=== PATIENT | male | born 1965 | race Caucasian/White ===

== ENCOUNTER 2017-07-29 17:50 | Inpatient (IN) | payer BC, MEDICARE, OTHER ==
[2017-07-29] MEDS ORDERED: ALBUTEROL SO4 2.5/IPRATROPIUM 0.5 INH SOL 3 ML VIAL.NEB. NEB ONE ×2 (17:57→22:14)
--- NOTE | 2017-07-29 17:57 | PDOC ---
Rapid Medical Evaluation Time Seen by Provider: 07/29/17 17:51 Medical Evaluation: Allergies Allergy/AdvReac Type Severity Reaction Status Date / Time No Known Allergies Allergy Verified 11/15/14 12:45 07/29/17 17:52 I have performed a brief in-person evaluation of this patient. The patient presents with a chief complaint of: sob, pain in rt ear, dizziness, decreased appetite, + smoker Pertinent physical exam findings: 82 % room air , + tachy , faint puma exp wheeze I have ordered the following: labs, ekg, cxr, douneb The patient will proceed to the ED for further evaluation.
[2017-07-29 18:35] LABS: BASOPHIL 0.7 % (0-2.0); EOSINOPHIL 0.7 % (0-4.5); MCH 25.8 pg (25.7-33.7); MCHC 31.5 g/dl (32.0-35.9); MEAN CELL VOLUME 81.8 fl (80-96); MEAN PLT VOLUME 7.9 fl (7.5-11.1); NEUTROPHILS 78.7 % (42.8-82.8); PLATELET COUNT 232 K/MM3 (134-434); RDW 17.4 % (11.9-15.9); WHITE BLOOD COUNT 13.6 K/mm3 (4.0-10.0)
[2017-07-29] MEDS ORDERED: ALBUTEROL SO4 0.083% IH SOL 2.5 MG/3 ML VIAL.NEB. NEB ONE ×2 (19:41→20:08)
--- NOTE | 2017-07-29 20:09 | PDOC ---
History of Present Illness - General Chief Complaint: Shortness of Breath Stated Complaint: S.O.B Time Seen by Provider: 07/29/17 17:51 History Source: Patient - History of Present Illness Initial Comments: 07/29/17 19:51 Patient is a 52 yo M, non-compliant, presented to the ED with 3 days of SOB, right ear pain, runny nose, and chills. He says he's been having eye discharge that also started 3 days ago. He complains of a dry cough and fatigue that has been going on for a while. He also complains of an allergic reaction that occurred 3 days ago after eating pistachios. He says his eyes, tongue, hands and feet became "very puffy". Patient does not follow with a PCP and has never been diagnosed with any medical conditions. Patient says the SOB has been going on for years but feels like it has been getting worse over the last few days. He says he can't walk 10 steps without losing his breath and has difficulty sleeping at night because of his breathing. He also noticed increased swelling of his legs over the years. He also complains of urinary incontinence that has been going on for a long time. He says he has towels all over his house floor because he can never make it to the bathroom. He denies chest pain/pressure, abdominal pain, dizziness, and diarrhea, urinary frequency, and dysuria. Past History - Past Medical History Allergies/Adverse Reactions: Allergies Allergy/AdvReac Type Severity Reaction Status Date / Time No Known Allergies Allergy Verified 07/29/17 17:56 Home Medications: Ambulatory Orders NK [No Known Home Medication] 07/29/17 Anemia: No Asthma: Yes ( CHILD-NO MEDS STABLE) Cancer: No Cardiac Disorders: No CVA: No COPD: No CHF: No Dementia: No Diabetes: No GI Disorders: No Disorders: No HTN: No Hypercholesterolemia: No Liver Disease: No Seizures: No Thyroid Disease: No - Surgical History Abdominal Surgery: No Appendectomy: No Cardiac Surgery: No Cholecystectomy: No Lung Surgery: No Neurologic Surgery: No Orthopedic Surgery: No - Suicide/Smoking/Psychosocial Hx Smoking History: Never smoked Number of Cigarettes Smoked Daily: 20 Information on smoking cessation initiated: No 'Breaking Loose' booklet given: 09/06/13 Hx Alcohol Use: Yes (SOCIAL) Drug/Substance Use Hx: No Substance Use Type: None Hx Substance Use Treatment: No Review of Systems - Review of Systems Able to Perform ROS?: Yes Constitutional: Yes: Chills, Weakness. No: Diaphoresis, Fever HEENTM: Yes: Ear Pain (right ear pain), Throat Pain, Other (right ear pain). No : Ear Discharge Respiratory: Yes: Cough, Shortness of Breath, SOB with Exertion, Wheezing Cardiac (ROS): Yes: Edema ABD/GI: No: Constipated, Diarrhea, Nausea : Yes: Incontinence, Urgency Neurological: No: Tingling, Tremors Psychiatric: Yes: Stressors *Physical Exam - Vital Signs Last Vital Signs Temp Pulse Resp BP Pulse Ox 99.5 F 100 H 22 145/95 95 07/29/17 17:51 07/29/17 18:34 07/29/17 17:51 07/29/17 17:51 07/29/17 18:34 - Physical Exam Comments: 07/29/17 21:49 General: Obese, A/o x 3, tachypneic, hypoxic in 80's. 90's w oxygen HEENT: periorbital edema, slight purulent discharge b/l, Right TM effusion, oropharynx clear without exudates Heart: regular rate, rhythm, distance heart sounds Lungs: expiratory wheezing Abd: +BS, NT, ND Ext: B/L UE edema, B/L LE edema 1+ pitting ED Treatment Course - LABORATORY CBC & Chemistry Diagram: 07/29/17 18:22 07/29/17 20:18 - ADDITIONAL ORDERS Additional order review: Laboratory Results 07/29/17 07/29/17 18:22 18:22 Sodium Cancelled Potassium Cancelled Chloride Cancelled Carbon Dioxide Cancelled Anion Gap Cancelled BUN Cancelled Creatinine Cancelled Creat Clearance w eGFR Cancelled Random Glucose Cancelled Lactic Acid 1.5 Calcium Cancelled Total Bilirubin Cancelled AST Cancelled ALT Cancelled Alkaline Phosphatase Cancelled Total Protein Cancelled Albumin Cancelled 07/29/17 18:22 RBC 5.60 MCV 81.8 MCHC 31.5 L RDW 17.4 H MPV 7.9 Neutrophils % 78.7 Lymphocytes % 10.5 Monocytes % 9.4 Eosinophils % 0.7 Basophils % 0.7 - Medications Given in the ED: ED Medications Discontinued Medications Generic Name Dose Route Start Last Admin Trade Name Freq PRN Reason Stop Dose Admin Albuterol/Ipratropium 1 amp 07/29/17 17:57 07/29/17 17:57 Duoneb - NEB 07/29/17 17:58 1 amp ONCE ONE Administration Medical Decision Making - Medical Decision Making 07/29/17 20:58 #Severe dyspnea on exertion #Volume overload #Hypercarbic respiratory failure #Allergic reaction -respiratory vs. cardiac Blood cultures Chest X ray UA CBC, CMP Duonebs Benadryl 07/29/17 21:00 Duonebs IV Solumedrol 125 IV Lasix 20mg Renal consulted 52-year-old male with likely undiagnosed chronic illnesses. Discussed case with hospitalist resident. Will admit to [facility] for further cardiac/pulmonary evaluations. *DC/Admit/Observation/Transfer Diagnosis at time of Disposition: Acute respiratory failure with hypoxia and hypercarbia - Discharge Dispostion Admit: Yes
[2017-07-29 20:37] LABS: VENOUS BLOOD GAS HCO3 38.4 meq/L (19-25); VENOUS PH 7.34 (7.32-7.42)
[2017-07-29 20:41] LABS: INR 1.29 (0.82-1.09); PROTHROMBIN TIME (PATIENT) 14.6 SEC (9.98-11.88)
[2017-07-29 20:44] LABS: ACTIVATED PTT 28.6 SECONDS (26.9-34.4)
[2017-07-29 20:54] LABS: ALK PHOS 91 U/L (45-117); ANION GAP 5 (8-16); BILIRUBIN,TOTAL 0.7 mg/dL (0.2-1.0); CALCIUM 8.2 mg/dL (8.5-10.1); CO2 37 mmol/L (21-32); CPK 93 IU/L (39-308); CREATININE 0.9 mg/dL (0.7-1.3); GLUCOSE,RANDOM 91 mg/dL (74-106); SGPT/ALT 34 U/L (12-78); TOT PROT 6.4 g/dl (6.4-8.2)
[2017-07-29 20:56] LABS: TROPONIN I 0.03 ng/ml (0.00-0.05)
[2017-07-29 20:57] LABS: SGOT/AST 18 U/L (15-37)
[2017-07-29] MEDS ORDERED: methylPREDNISolone NA SUCC 125 MG/2 ML VIAL IVPUSH ONE (21:21)
[2017-07-29 21:24] LABS: CHOLESTEROL 145 mg/dL (50-200)
[2017-07-29] MEDS ORDERED: FUROSEMIDE 20 MG TABLET (FP) PO ONE (21:33)
[2017-07-29] MEDS ORDERED: FUROSEMIDE 40 MG/4 ML INJECTABLE VIAL IVPUSH ONE (21:36)
[2017-07-29] MEDS ORDERED: FUROSEMIDE 40 MG/4 ML INJECTABLE VIAL IVPUSH SCH (21:45)
[2017-07-29] MEDS ORDERED: FUROSEMIDE 40 MG/4 ML INJECTABLE VIAL ONE (22:14)
[2017-07-29] MEDS ORDERED: methylPREDNISolone NA SUCC 125 MG/2 ML VIAL ONE (22:14)
--- NOTE | 2017-07-29 22:19 | PDOC ---
Attending Attestation - Resident Resident Name: Kellee Grimaldo - ED Attending Attestation I have performed the following: I have examined & evaluated the patient, The case was reviewed & discussed with the resident, I agree w/resident's findings & plan, Exceptions are as noted - HPI HPI: 07/29/17 22:06 52-year-old male lost to medical follow-up, morbidly obese and daily smoker varying from 2 packs per day to half a pack per day presents with acute on chronic complaints: Limited exercise tolerance at baseline due to his obesity and left knee pain, but over the last week presents with constellation of symptoms including increased dyspnea, hand and foot swelling, nonspecific and atraumatic right ear pain, and bilateral eye redness and swelling since moving into a new apartment. Denies any chest pain or pressure, denies any fevers or chills, nonproductive cough, no GI complaints. Never had a stress test, his last medical evaluation was about 9 years ago. - Physicial Exam PE: 07/29/17 22:07 Tachypneic, afebrile, hypoxic on room air in the 80s, improves to 90s on oxygen Morbidly obese, slightly unkempt Bilateral reactive conjunctivitis with slight discharge Right TM effusion, no infection Bibasilar inspiratory crackles with expiratory wheezing, rate otherwise regular and normal Abdomen benign Bilateral lower leg edema - Critical Care Time Total Critical Care Time: 45 Critical Care Statement: The care of this patient involved high complexity decision making to prevent further life threatening deterioration of the patient 's condition and/or to evaluate & treat vital organ system(s) failure or risk of failure. - Medical Decision Making 07/29/17 22:10 Patient seen and evaluated with the resident. I agree with the overall evaluation, assessment, and management with the following summary of visit: 52-year-old male with likely undiagnosed chronic illnesses, presents acute hypoxic respiratory failure and hypercarbia, worsening respiratory distress over the last week. Question cardiac versus pulmonary in etiology. His eye redness and ear pain are likely more reactive, question atopic secondary to new allergens in his new apartment. There does not appear to be any acute maxillofacial or ENT infectious process. Labs notable for chronic respiratory acidosis with metabolic compensation Troponin negative Chest x-ray shows enlarged heart with congestive changes and pulmonary edema Findings consistent with chronic COPD plus or minus CHF. Treated with nebs/ steroids, initiated IV Lasix, admitted for further cardiac pulmonary evaluation. Discharge Disposition - Diagnosis Acute respiratory failure with hypoxia and hypercapnia Heart Score/ECG Review #1 ECG reviewed & interpreted by me at: 18:09 General ECG Interpretation: Sinus Rhythm, Normal Rate (106), Normal Intervals ( qtc 435), No acute ischemic changes
[2017-07-29] MEDS: ALBUTEROL SO4 2.5/IPRATROPIUM 0.5 INH SOL 3 ML VIAL.NEB. NEB SCH ×4 (22:21→23:50)
--- NOTE | 2017-07-29 22:41 | HP ---
CHIEF COMPLAINT: "im having trouble breathing" PCP: none HISTORY OF PRESENT ILLNESS: This is a 52 yo M with PMH of urinary incontinence, chronic knee pain and mild asthma, (has not seen a doctor in years), who presents due to worsening SOB, right ear pain, b/l eye discharge, runny nose x 5 d. On presentation to ED patient is in hypoxic hypercarbic respiratory failure o2 sat 82% RA and has diffuse facial edema/erythema. Patient states that 5 days ago he changed his diet and noticed facial swelling and redness, itchy tongue and the rest of the presenting symptoms, that have not improved since. He also noticed decreased exercise tolerance and malaise. This has never happened before. He denies cough, f/c, nausea, loss of appetite, increased weight or increased LE edema. ER course was notable for: (1)labs (2)cxr,ekg (3)lasix 40, medrol 125, duonebs, benadryl 50 iv Recent Travel: denies PAST MEDICAL HISTORY: as above PAST SURGICAL HISTORY: none Social History: lives alone Smoking: daily half a pack since 19 yo Alcohol:denies Drugs: denies Family History: htn, asthma Allergies No Known Allergies Allergy (Verified 07/29/17 17:56) HOME MEDICATIONS: Home Medications Medication Instructions Recorded NK [No Known Home Medication] 07/29/17 REVIEW OF SYSTEMS CONSTITUTIONAL: Absent: fever, chills, loss of appetite, weight change HEENT: Absent: throat pain, throat swelling, difficulty swallowing, mouth swelling CARDIOVASCULAR: Absent: chest pain, syncope, palpitations, irregular heart rate, lightheadedness , peripheral edema RESPIRATORY: Absent: cough, stridor, hemoptysis GASTROINTESTINAL: Absent: abdominal pain, abdominal distension, nausea, vomiting, diarrhea, constipation, melena, hematochezia GENITOURINARY: Absent: dysuria, flank pain, genital pain MUSCULOSKELETAL: Absent: back pain, neck pain SKIN: Absent: rash, itching, pallor HEMATOLOGIC/IMMUNOLOGIC: Absent: frequent infections ENDOCRINE: Absent: heat intolerance, cold intolerance NEUROLOGIC: Absent: headache, focal weakness or paresthesias PSYCHIATRIC: Absent: anxiety, depression PHYSICAL EXAMINATION Vital Signs - 24 hr 07/29/17 07/29/17 17:51 18:34 Temperature 99.5 F Pulse Rate 107 H 100 H Respiratory 22 Rate Blood Pressure 145/95 O2 Sat by Pulse 82 L 95 Oximetry (%) GENERAL: severely morbidly obsese, diaphoretic, Awake, alert, and fully oriented , in no moderate distress. HEAD: Normal with no signs of trauma. EYES: Pupils equal, round and reactive to light, extraocular movements intact, sclera anicteric, conjunctiva pink, b/l purulent discharge, periorbital edema. EARS, NOSE, THROAT: Moist mucous membranes. clear tympanic membranes b/l NECK: supple LUNGS: diffusely restricted breath sounds, diffuse wheezes HEART: Regular rate and rhythm, normal S1 and S2 ABDOMEN: obese, Soft, nontender, not distended, normoactive bowel sounds. limited exam MUSCULOSKELETAL: No CVA tenderness. UPPER EXTREMITIES: 2+ pulses, warm, well-perfused. No cyanosis. + clubbing. No peripheral edema. LOWER EXTREMITIES: 1+ pulses, warm, well-perfused. No calf tenderness. 1+ edema. NEUROLOGICAL: Cranial nerves II-XII grossly intact. dyspneic speech. PSYCHIATRIC: Cooperative. Good eye contact. Appropriate mood and affect. SKIN: Warm, dry Laboratory Results - last 24 hr 07/29/17 07/29/17 07/29/17 18:22 18:22 18:22 WBC 13.6 H RBC 5.60 Hgb 14.4 Hct 45.7 MCV 81.8 MCH 25.8 MCHC 31.5 L RDW 17.4 H Plt Count 232 MPV 7.9 Neutrophils % 78.7 Lymphocytes % 10.5 Monocytes % 9.4 Eosinophils % 0.7 Basophils % 0.7 PT with INR INR PTT (Actin FS) VBG pH POC VBG pCO2 POC VBG pO2 Mixed VBG HCO3 Sodium Cancelled Potassium Cancelled Chloride Cancelled Carbon Dioxide Cancelled Anion Gap Cancelled BUN Cancelled Creatinine Cancelled Creat Clearance w eGFR Cancelled Random Glucose Cancelled Lactic Acid 1.5 Calcium Cancelled Total Bilirubin Cancelled AST Cancelled ALT Cancelled Alkaline Phosphatase Cancelled Creatine Kinase Troponin I Total Protein Cancelled Albumin Cancelled Triglycerides Cholesterol Total LDL Cholesterol HDL Cholesterol Blood Type Antibody Screen 07/29/17 07/29/17 07/29/17 20:18 20:18 20:18 WBC RBC Hgb Hct MCV MCH MCHC RDW Plt Count MPV Neutrophils % Lymphocytes % Monocytes % Eosinophils % Basophils % PT with INR 14.60 H INR 1.29 H PTT (Actin FS) 28.6 VBG pH 7.34 POC VBG pCO2 73.7 H* POC VBG pO2 47.4 Mixed VBG HCO3 38.4 H Sodium 141 Potassium 4.8 Chloride 99 Carbon Dioxide 37 H Anion Gap 5 L BUN 15 Creatinine 0.9 Creat Clearance w eGFR > 60 Random Glucose 91 Lactic Acid Calcium 8.2 L Total Bilirubin 0.7 AST 18 ALT 34 Alkaline Phosphatase 91 Creatine Kinase 93 Troponin I 0.03 Total Protein 6.4 Albumin 3.0 L Triglycerides Cholesterol Total LDL Cholesterol HDL Cholesterol Blood Type Antibody Screen 07/29/17 07/29/17 07/29/17 20:18 20:18 21:00 WBC RBC Hgb Hct MCV MCH MCHC RDW Plt Count MPV Neutrophils % Lymphocytes % Monocytes % Eosinophils % Basophils % PT with INR INR PTT (Actin FS) VBG pH POC VBG pCO2 POC VBG pO2 Mixed VBG HCO3 Sodium Potassium Chloride Carbon Dioxide Anion Gap BUN Creatinine Creat Clearance w eGFR Random Glucose Lactic Acid 1.5 Calcium Total Bilirubin AST ALT Alkaline Phosphatase Creatine Kinase Troponin I Total Protein Albumin Triglycerides 133 Cholesterol 145 Total LDL Cholesterol 96 HDL Cholesterol 32 L Blood Type B NEGATIVE Antibody Screen Negative ASSESSMENT/PLAN: This is a 52 yo M with PMH of urinary incontinence, chronic knee pain and mild asthma, (has not seen a doctor in years), who presents due to worsening SOB, right ear pain, b/l eye discharge, runny nose x 5 d. Acute hypoxic hypercarbic respiratory failure -likely due to COPD exacerbation precipitated by allergic reaction vs URI vs asthma exacerbation -likely has OHS and RANJIT; recommend outpatient eval. -CPAP at night -supplemental O2 NC day -duonebs, symbicort -rocephin, azithro -medrol 40 bid -daily cxr -pulm consult -peak flow -incentive spirometer -blood/sputum cultures Sepsis -meets criteria; leukocytosis 13.6 w mild left shift -infectious vs reactive -treatment as above r/o HFPEF -cxr prominent pulmonary vasculature/congestion but difficult to read lung khan due to girth -ekg r axis div -in smoker consistent with pulm htn and possible R heart failure -received lasix 40 iv in ed -i/o, daily weight -tte -tft's, a1c. lipid panel wnl Allergic reaction -periorbital edema, uveitis, moderate tongue swelling -benadryl IV, steroids -antibiotic eye drops -swallow eval Urinary incontinence -outpatient urology consult Dispo: Adm med hood Problem List - Problem (1) Acute respiratory failure with hypoxia and hypercarbia Code(s): J96.01 - ACUTE RESPIRATORY FAILURE WITH HYPOXIA J96.02 - ACUTE RESPIRATORY FAILURE WITH HYPERCAPNIA (2) Allergic dermatitis, upper and lower eyelids, bilateral Code(s): H01.111 - ALLERGIC DERMATITIS OF RIGHT UPPER EYELID H01.112 - ALLERGIC DERMATITIS OF RIGHT LOWER EYELID H01.114 - ALLERGIC DERMATITIS OF LEFT UPPER EYELID H01.115 - ALLERGIC DERMATITIS OF LEFT LOWER EYELID (3) COPD exacerbation Code(s): J44.1 - CHRONIC OBSTRUCTIVE PULMONARY DISEASE W (ACUTE) EXACERBATION (4) Sleep apnea Code(s): G47.30 - SLEEP APNEA, UNSPECIFIED (5) Morbid obesity Code(s): E66.01 - MORBID (SEVERE) OBESITY DUE TO EXCESS CALORIES (6) Asthma Code(s): J45.909 - UNSPECIFIED ASTHMA, UNCOMPLICATED (7) Urinary incontinence Code(s): R32 - UNSPECIFIED URINARY INCONTINENCE Visit type - Emergency Visit Emergency Visit: Yes ED Registration Date: 07/29/17 Care time: The patient presented to the Emergency Department on the above date and was hospitalized for further evaluation of their emergent condition. - New Patient This patient is new to me today: Yes Date on this admission: 07/30/17 - Critical Care Critical Care patient: No
[2017-07-29 23:35] LABS: ARTERIAL BLD GAS O2 SATURATION 94.1 % (90-98.9); ARTERIAL BLOOD GAS HCO3 36.8 meq/L (22-26); ARTERIAL BLOOD GAS PO2 68.2 mmHg (80-100); ARTERIAL BLOOD GAS pH 7.41 (7.35-7.45)
[2017-07-29 23:46] LABS: URINE APPEARANCE CLEAR; URINE BILIRUBIN NEGATIVE (NEGATIVE); URINE COLOR LT. YELLOW; URINE GLUCOSE (UA) NEGATIVE (NEGATIVE); URINE KETONE NEGATIVE (NEGATIVE); URINE NITRITE NEGATIVE (NEGATIVE); URINE PROTEIN NEGATIVE (NEGATIVE); URINE UROBILINOGEN 0.2 mg/dL (0.2-1.0)
[2017-07-29 23:49] LABS: URINE BLOOD 1+ (NEGATIVE)
[2017-07-29 23:57] LABS: ART PUNCT SITE RIGHT RADIAL
[2017-07-29 23:58] LABS: PT. ON O2? NO
--- NOTE | 2017-07-30 00:07 | HP ---
CHIEF COMPLAINT: SOB, bilateral eye discharge and redness X 4 days PCP: None HISTORY OF PRESENT ILLNESS: 52 year old M morbidly obese smoker with childhood hx of asthma and allergies, presenting with 4 day history of worsening SOB, facial itch and rash, and puffy eyes. The patient noticed worsening of SOB 4 days ago, which is worse with exertion, but does not change with position. He normally lies down on his belly and has no worsening shortness of breath in that position. He has associated redness of both eyes with whitish creamy discharge and puffiness. There is also nasal congestion. He also has increased drooling from the mouth. Although the patient is morbidly obese, he says he is usually limited in movement by pain in his knee and not breathlessness. About 4 days ago he tried pistachios and thinks he might be reacting to them, because he remembers following ingestion of the pistachios, he had heartburn, difficulty breathing and then swelling of his body. Patient moved to a new living space a week ago that has hard wood floors. He is severely allergic to cats (has shortness of breath) and to dog hairs. He knows nothing about the previous occupants of where he moved to. Recently he has been working on his diet and trying different foods, but cannot identify any foods he may be allergic to other than the pistachios. Patient noticed pain in the R ear at about the time of onset of the symptoms that has resolved, no ear discharge. There is no cough, or chest pain, no fevers. No hx of bug bites. Patient has been having urge incontinence for a while now, but no feeling of incomplete emptying or terminal dribbling. He has not seen a health care provider in about 9 years, but at that time he was told he had a normal sized prostate. Patient is a current smoker, has smoked about a pack/day since he was about 19 years old. Patient was sating initially at 82% in room air. ER course was notable for: (1) CXR, EKG (2)VBG, ABG (3)Leucocytosis-13.6, Tachycardia -100 4)Oxygen -face mask 2L 5) Duonebs, benadryl, solumeds 6) UA, - negative 7)Lactic acid x2-1.5 8) Lipid panel-slightly elevated 9)CMP, PT/INR 10) Blood cultures 11) Lasix -given Recent Travel: PAST MEDICAL HISTORY: Childhood asthma PAST SURGICAL HISTORY: Social History: Smoking: Current 1/2 pack/dayX 30years Alcohol: Drugs: Family History: Allergies No Known Allergies Allergy (Verified 07/29/17 17:56) HOME MEDICATIONS: Home Medications Medication Instructions Recorded NK [No Known Home Medication] 07/29/17 REVIEW OF SYSTEMS CONSTITUTIONAL: Absent: fever, chills, diaphoresis, generalized weakness, malaise, loss of appetite, weight change HEENT: Absent: rhinorrhea, nasal congestion+, throat pain, throat swelling, difficulty swallowing, mouth swelling, ear pain+, eye pain, visual changes CARDIOVASCULAR: Absent: chest pain, syncope, palpitations, irregular heart rate, lightheadedness , peripheral edema RESPIRATORY: Absent: cough, shortness of breath+, dyspnea with exertion+, orthopnea, wheezing , stridor, hemoptysis GASTROINTESTINAL: Absent: abdominal pain, abdominal distension, nausea, vomiting, diarrhea, constipation, melena, hematochezia GENITOURINARY: Absent: dysuria, frequency, urgency, hesitancy, hematuria, flank pain, genital pain MUSCULOSKELETAL: Absent: myalgia, arthralgia, joint swelling, back pain, neck pain SKIN: Absent: rash, itching, pallor HEMATOLOGIC/IMMUNOLOGIC: Absent: easy bleeding, easy bruising, lymphadenopathy, frequent infections ENDOCRINE: Absent: unexplained weight gain, unexplained weight loss, heat intolerance, cold intolerance NEUROLOGIC: Absent: headache, focal weakness or paresthesias, dizziness, unsteady gait, seizure, mental status changes, bladder or bowel incontinence PSYCHIATRIC: Absent: anxiety, depression, suicidal or homicidal ideation, hallucinations. PHYSICAL EXAMINATION GENERAL: Awake, alert, and fully oriented, in no respiratory distress (is able to complete sentences), on intermittent oxygen face mask. HEAD: Reddish coloration of bilateral lower lids, macular red rashes over face EYES: Pupils equal, round and reactive to light, extraocular movements intact, injected (red) conjuctiva bilaterally, bilaterally puffy upper and lower lids, whitish discharge EARS, NOSE, THROAT: Ears non tender, oropharynx clear without exudates. swollen tongue, whitish drool NECK: Normal range of motion, supple without lymphadenopathy. LUNGS: Breath sounds reduced bilaterally, few rhonchi anteriorly HEART: Regular rate and rhythm, normal S1 and S2 without murmur, rub or gallop. ABDOMEN: Soft, nontender, obese, firm, normoactive bowel sounds, no guarding, no rebound, no masses. JAMISON: Visible large anal tag, firm prostate, with mobile mucosa, no palpable masses, non tender. Palpable formed feces in rectal vault no other palpable masses. Gloved finger stained with brown stool MUSCULOSKELETAL: Normal range of motion at all joints. No bony deformities or tenderness. No CVA tenderness. UPPER EXTREMITIES: 2+ pulses, warm, well-perfused. No cyanosis. No clubbing. No peripheral edema. LOWER EXTREMITIES: 2+ pulses, warm, well-perfused. No calf tenderness. peripheral edema+1 bilaterally, hyperemia/excoriation over L escobar NEUROLOGICAL: Cranial nerves II-XII intact. Normal speech. ambulating with assistance of a wheel chair like a walker. PSYCHIATRIC: Cooperative. Good eye contact. Appropriate mood and affect. SKIN: Warm, dry, rashes on face Laboratory Results - last 24 hr 07/29/17 07/29/17 23:05 23:37 Anticoagulation Therapy Y Puncture Site Right radial ABG pH 7.41 ABG pCO2 at Pt Temp 59.0 H ABG pO2 at Pt Temp 68.2 L ABG HCO3 36.8 H ABG O2 Sat (Measured) 94.1 ABG O2 Content 17.5 ABG Base Excess 10.0 H Neto Test Y Carboxyhemoglobin 9.9 H Methemoglobin Y O2 Delivery Device Y Oxygen Flow Rate Vent Mode Y Vent Rate Y Mechanical Rate Y Pressure Support Vent Y Urine Color Lt. yellow Urine Appearance Clear Urine pH 6.0 Ur Specific [place] <= 1.005 Urine Protein Negative Urine Glucose (UA) Negative Urine Ketones Negative Urine Blood 1+ H Urine Nitrite Negative Urine Bilirubin Negative Urine Urobilinogen 0.2 Urine RBC None Urine WBC None ASSESSMENT/PLAN: 52 year old M morbidly obese smoker with childhood hx of asthma and severe cat allergies, presenting with 4 day history of worsening SOB, facial itch and rash , and puffy eyes immediately after ingesting pistachios and about 3 days after moving to a new accommodation. #Acute on chronic Hypoxic hypercapnic respiratory failure respiratory acidosis with compensation Modified-MRC dyspnea scale-Grade 4 A-a gradient 7.8 Could be due to undiagnosed COPD in exacerbation in a chronic smoker Could be due to severe asthma exacerbation precipitated by either pistachios /animal dander Patient likely has obstructive sleep apnea based on his morbid obesity-BMI 57.4kg with obesity hypoventilation syndrome supplemental oxygen via nasal cannular at day CPAP at night- respiratory Prednisone 40mg bid PO duonebs-Q6H symbicort-160/4.5 mcg 2puff IH bid rocephin 2g daily azithro-500mg daily prednisone 40 PO bid daily cxr- am order in pulm consult - Dr Toussaint peak flow incentive spirometer blood/sputum cultures Outpatient PFTs #Sepsis leukocytosis 13.6, tachycardia, no confirmed source yet Could be reactive in obstructive airway disease Lactic acid x 2 negative CXR-not clearly infiltrative pattern UA- negative Panculture CBC Ceftriaxone/azithro # R/O Heart Failure with Preserved EF cxr prominent pulmonary vasculature/congestion but difficult to read lung khan due to girth ekg r axis div in smoker consistent with pulm htn and possible R heart failure received lasix 40 iv in ed i/o, daily weight tte tft's, a1c. lipid panel- wnl #Systemic Allergic reaction periorbital edema, conjuctivitis, moderate tongue swelling, itching, macular skin rash benadryl IV, steroids azithromycin eye drops Speech and swallow eval #Urinary incontinence Patient already had an accident while in the ED [place] catheter urine culture outpatient urology consult #Enlarged prostate with benign features-firm prostate, with mobile mucosa, no palpable masses Out patient follow up #Chronic smoker Smoking counseling Nicotine patch 7 TD Pt not ready to quit yet, will think about it #Morbid obesity Counseling Diet and exercise #Prophylaxis Heparin 5000u tids Protonix 40mg PO daily #FEN Oral fluids Monitor electrolytes Sodium controlled diet #Dispo: Adm med hood Visit type - Emergency Visit Emergency Visit: Yes ED Registration Date: 07/29/17 Care time: The patient presented to the Emergency Department on the above date and was hospitalized for further evaluation of their emergent condition. - New Patient This patient is new to me today: Yes Date on this admission: 07/30/17 - Critical Care Critical Care patient: No
[2017-07-30] MEDS ORDERED: ALBUTEROL SO4 0.083% IH SOL 2.5 MG/3 ML VIAL.NEB. NEB PRN (00:17)
[2017-07-30] MEDS ORDERED: CEFTRIAXONE 100 ML IVPB ONE (01:38)
[2017-07-30] MEDS ORDERED: ALBUTEROL SO4 2.5/IPRATROPIUM 0.5 INH SOL 3 ML VIAL.NEB. NEB PRN ×2 (03:41→13:25)
[2017-07-30] MEDS ORDERED: ALBUTEROL SO4 2.5/IPRATROPIUM 0.5 INH SOL 3 ML VIAL.NEB. NEB SCH (05:15)
--- NOTE | 2017-07-30 05:26 | PN ---
Teaching Attending Note Name of Resident: Sarah Martini ATTENDING PHYSICIAN STATEMENT I saw and evaluated the patient. I reviewed the resident's note and discussed the case with the resident. I agree with the resident's findings and plan as documented. SUBJECTIVE:52 y/o M c/o recent SOB and possible allergic reaction presented to ED c/o dyspnea and eye secretions and otalgia. OBJECTIVE: In mild distress, obese NC, periorbital erythema and mucus secretions, PERRLA, EOMI, nasal mucosa erythema LUNGS , bibasilar diminished breath sounds and slight wheeze CVS: RRR, S1, S2 Abd: Soft, abdomen obese, BS+ Ext: pulses intact, no edema CBCD WBC 13.6 K/mm3 (4.0-10.0) H 07/29/17 18:22 RBC 5.60 M/mm3 (4.00-5.60) 07/29/17 18:22 Hgb 14.4 GM/dL (11.7-16.9) 07/29/17 18:22 Hct 45.7 % (35.4-49) 07/29/17 18:22 MCV 81.8 fl (80-96) 07/29/17 18:22 MCHC 31.5 g/dl (32.0-35.9) L 07/29/17 18:22 RDW 17.4 % (11.9-15.9) H 07/29/17 18:22 Plt Count 232 K/MM3 (134-434) 07/29/17 18:22 MPV 7.9 fl (7.5-11.1) 07/29/17 18:22 CMP Sodium 141 mmol/L (136-145) 07/29/17 20:18 Potassium 4.8 mmol/L (3.5-5.1) 07/29/17 20:18 Chloride 99 mmol/L (98-107) 07/29/17 20:18 Carbon Dioxide 37 mmol/L (21-32) H 07/29/17 20:18 Anion Gap 5 (8-16) L 07/29/17 20:18 BUN 15 mg/dL (7-18) 07/29/17 20:18 Creatinine 0.9 mg/dL (0.7-1.3) 07/29/17 20:18 Creat Clearance w eGFR > 60 (>60) 07/29/17 20:18 Calcium 8.2 mg/dL (8.5-10.1) L 07/29/17 20:18 Total Bilirubin 0.7 mg/dL (0.2-1.0) 07/29/17 20:18 AST 18 U/L (15-37) 07/29/17 20:18 ALT 34 U/L (12-78) 07/29/17 20:18 Alkaline Phosphatase 91 U/L (45-117) 07/29/17 20:18 Total Protein 6.4 g/dl (6.4-8.2) 07/29/17 20:18 Albumin 3.0 g/dl (3.4-5.0) L 07/29/17 20:18 ASSESSMENT AND PLAN: Ac Hypoxic Hypercapnia respiratory failure r/o COPD exacerbation/OHS/RANJIT , vs pneumonitis, CAP unlikely. 3L NC Nebs, azithromycin, ceftriaxone, prednisone, tiotropium Smoking cessation counselling given and nicotine patch 7mg r/o CHF -ECHO CBC, CMP, Hgba1c,lipids, BNP, cultures Consult Pulmonary Consider referral to urology for urinary incontinence.
[2017-07-30 06:28] LABS: BASOPHIL 0.3 % (0-2.0); MCH 25.7 pg (25.7-33.7); MCHC 31.6 g/dl (32.0-35.9); MEAN CELL VOLUME 81.4 fl (80-96); MEAN PLT VOLUME 7.9 fl (7.5-11.1); NEUTROPHILS 94.9 % (42.8-82.8); PLATELET COUNT 246 K/MM3 (134-434); RDW 17.3 % (11.9-15.9); WHITE BLOOD COUNT 11.5 K/mm3 (4.0-10.0)
[2017-07-30 06:54] LABS: ALBUMIN 3.2 g/dl (3.4-5.0); ANION GAP 5 (8-16); CALCIUM 8.3 mg/dL (8.5-10.1); CO2 38 mmol/L (21-32); GLUCOSE,RANDOM 144 mg/dL (74-106); MAGNESIUM 2.2 mg/dL (1.8-2.4); PHOSPHOROUS 4.5 mg/dL (2.5-4.9); SGOT/AST 17 U/L (15-37); SGPT/ALT 34 U/L (12-78)
[2017-07-30 06:57] LABS: ALK PHOS 96 U/L (45-117); BILIRUBIN,TOTAL 0.5 mg/dL (0.2-1.0)
[2017-07-30] MEDS: HEPARIN NA (PORCINE) 5,000 UNITS/ML 1ML VIAL SQ SCH ×2 (07:21→14:36)
[2017-07-30] MEDS: ALBUTEROL SO4 2.5/IPRATROPIUM 0.5 INH SOL 3 ML VIAL.NEB. NEB SCH ×2 (07:22→09:17)
[2017-07-30] MEDS ORDERED: ALBUTEROL SO4 2.5/IPRATROPIUM 0.5 INH SOL 3 ML VIAL.NEB. NEB ONE (07:57)
[2017-07-30] MEDS: BUDESONIDE/FORMETEROL FUMARATE 160/4.5 mcg INHALER IH SCH (09:18)
--- NOTE | 2017-07-30 09:45 | EKG ---
Test Reason : Blood Pressure : / mmHG Vent. Rate : 106 BPM Atrial Rate : 106 BPM P-R Int : 158 ms QRS Dur : 072 ms QT Int : 328 ms P-R-T Axes : 043 056 035 degrees QTc Int : 435 ms SINUS TACHYCARDIA POSSIBLE LEFT ATRIAL ENLARGEMENT POOR R WAVE PROGRESSION ABNORMAL ECG NO PREVIOUS ECGS AVAILABLE Confirmed by DARRICK ALVAREZ MD ([id number]) on 07/30/2017 9:45:39 AM Referred By: Confirmed By:DARRICK ALVAREZ MD
[2017-07-30] MEDS ORDERED: methylPREDNISolone 8 MG TABLET PO SCH (10:00)
[2017-07-30] MEDS ORDERED: AZITHROMYCIN IVPB 500 MG in DEXTROSE 5%-WATER - 250 ML IVPB SCH (10:00)
[2017-07-30] MEDS ORDERED: PANTOPRAZOLE 40 MG TABLET (FP) PO SCH (10:00)
[2017-07-30] MEDS ORDERED: predniSONE 20 MG TABLET (UD) PO SCH (10:00)
[2017-07-30] MEDS ORDERED: methylPREDNISolone NA SUCC 40 MG/1 ML VIAL IVPUSH SCH (10:00)
[2017-07-30] MEDS ORDERED: NICOTINE 7 MG/24 HOURS TOPICAL PATCH TD SCH (10:00)
[2017-07-30] MEDS ORDERED: AZITHROMYCIN 1% OPHTH SOLN 1 BOTTLE OU SCH (10:00)
[2017-07-30 10:01] LABS: URINE LEUK ESTERASE Negative (NEGATIVE)
--- NOTE | 2017-07-30 11:13 | CONSULT ---
Admitting History and Physical - Primary Care Physician PCP: Magdalene Lambert - Admission History of Present Illness: 52 year old M morbidly obese smoker with childhood hx of asthma and severe cat allergies, presenting with 4 day history of worsening SOB, facial itch and rash , and puffy eyes immediately after ingesting pistachios and about 3 days after moving to a new accommodation. Seen bedside, on nasal o2 3 liters. O2 saturation 84-87%. Verbal, but sob with mildly reduced respiratory capacity for speech purposes. History Source: Patient, Medical Record Limitations to Obtaining History: No Limitations - Smoking History Smoking history: Never smoked Aproximately how many cigarettes per day: 20 - Alcohol/Substance Use Hx Alcohol Use: Yes (SOCIAL) History - Admission Reason For Visit: DYSPNEA/RESP FAIL W/HYPOXIA - Diagnostics X-ray: Report Reviewed CT Scan: Pending - General Mental Status: Alert and Oriented, Awake and Alert, Able to Follow Commands Attention: Intact Ability to Follow Directions: Excellent Head/Neck Control: WFL - Hearing Hearing: Functional Speech Evaluation - Communication Primary Language: ALGERIAN - Speech Production Able to Make Needs Known: Yes: WNL Intelligibility: Yes: WNL - Speech Characteristics Voice Loudness: Normal Voice Pitch: Yes: Normal Voice Phonatory-based Quality: Yes: Normal Speech Pattern: Normal Speech Clarity: < 100% Nasal Resonance: Normal Articulation: Yes: Precise Voice, Other Observations: Yes: Inadequate Breath Support - Language/Auditory Comprehension Follows: Yes: 2 Stage Simple Commands - Language/Verbal Expression Able to Respond to Simple Queries: Yes: WNL Able to Communicate Wants and Needs: Yes: WNL Functional Communication Status: Yes: WNL - Memory/Perception terminal manager Memory: Yes: WNL Short Term Memory: Yes: WNL - Swallow Evaluation/Bedside Assessment Current Nutritional Intake: Regular, Thin Liquids Oral Secretions: Yes: WFL Dentition: Yes: Adequate Facial Symmetry at Rest: Symmetrical Facial Symmetry on Retraction: Symmetrical Facial Movement: Controlled Sensation: Normal Jaw Position: Open at Rest, Other (nasal o2) Against Resistance Opening: Normal Against Resistance Closing: Normal Pucker Lips: Normal Smile: Normal Lingual Movement: Normal, Symmetric Lingual Speed of Movement: Normal Lingual Movement Strgth Against Opposition: Normal Lingual Movement Characteristics: Normal Velopharyngeal Movement: Normal Laryngeal Elevation: WFL Laryngeal Movement: Able to Palpate Rate of Intake: WFL Bolus Size: WFL Labial Seal: WFL Chewing: WFL Oral Prep Time: WFL A-P Transit: WFL Pocketing: None Timing of Swallow: WFL Coughing/Throat Clear: No Change in Voice: No Recommendations - Dysphagia Impressions/Plan Swallowing Skills: WF Dysphagia Impressions: No Impairment *Silent aspiration: cannot be R/O at bedside - Recommendations Diet Consistency: Regular, Other (monitor tolerance) Medication Administration: Whole with water Liquids: Thin Liquids
--- NOTE | 2017-07-30 13:15 | PN ---
Progress Note (short form) - Note Progress Note: PULMONARY CONSULTATION DICTATED 07/30/17 IMP ACUTE ON CHRONIC HYPOXEMIC /HYPERCAPNEIC RESPIRATORY FAILURE COPD/ASTHMA EXACERBATION OBESITY /HYPOVENTILATION SYNDROME PULMONARY HTN SEVERE RV DYSFUNCTION COR PULMONALE LIKELY OSAS MORBID OBESITY TOBACCO ABUSE PLAN IV STEROIDS INHALED BRONCHODILATORS O2 TO MAINTAIN O2 SAT 90 OR GREATER DIURETICS DAILY WTS DUPLEX LOWER EXTREMITIES D-DIMER NIPPV SLEEP SCREEN SLEEP STUDIES OUTPATIENT WT LOSS SMOKING CESSATION COUNSELED CONSIDER CARDIOLOGY EVALUATION DVT PROPHYLAXIS DR BUCHANAN Problem List - Problems (1) Acute respiratory failure with hypoxia and hypercarbia Code(s): J96.01 - ACUTE RESPIRATORY FAILURE WITH HYPOXIA J96.02 - ACUTE RESPIRATORY FAILURE WITH HYPERCAPNIA (2) Allergic dermatitis, upper and lower eyelids, bilateral Code(s): H01.111 - ALLERGIC DERMATITIS OF RIGHT UPPER EYELID H01.112 - ALLERGIC DERMATITIS OF RIGHT LOWER EYELID H01.114 - ALLERGIC DERMATITIS OF LEFT UPPER EYELID H01.115 - ALLERGIC DERMATITIS OF LEFT LOWER EYELID (3) Asthma Code(s): J45.909 - UNSPECIFIED ASTHMA, UNCOMPLICATED Qualifiers: Asthma severity: unspecified severity (4) COPD exacerbation Code(s): J44.1 - CHRONIC OBSTRUCTIVE PULMONARY DISEASE W (ACUTE) EXACERBATION (5) Morbid obesity Code(s): E66.01 - MORBID (SEVERE) OBESITY DUE TO EXCESS CALORIES (6) Sleep apnea Code(s): G47.30 - SLEEP APNEA, UNSPECIFIED Qualifiers: Sleep apnea type: obstructive Qualified Code(s): G47.33 - Obstructive sleep apnea (adult) (pediatric); G47.33 - Obstructive sleep apnea ( adult) (pediatric) (7) Acute on chronic respiratory failure with hypoxia and hypercapnia Code(s): J96.21 - ACUTE AND CHRONIC RESPIRATORY FAILURE WITH HYPOXIA J96.22 - ACUTE AND CHRONIC RESPIRATORY FAILURE WITH HYPERCAPNIA (8) Pulmonary HTN Code(s): I27.20 - PULMONARY HYPERTENSION, UNSPECIFIED (9) Cor pulmonale Code(s): I27.81 - COR PULMONALE (CHRONIC)
[2017-07-30 13:19] VITALS: BMI 50.2
--- NOTE | 2017-07-30 13:28 | CONS ---
DATE OF CONSULTATION: 07/30/2017 REFERRING PHYSICIAN: Magdalene Lambert MD HISTORY: The patient is a 52-year-old white morbidly obese male with a past medical history of childhood asthma, longstanding history of tobacco use approximately 1 pack per day many years stopped yesterday admitted to [facility] with the complaint of a 1-week history of increasing shortness of breath, dyspnea on exertion, and facial itch and puffy eyes. The patient denied any complaints of chest pain, nausea, vomiting, diaphoresis. Denied any fever or chills. He started noticing for the past week progressive shortness of breath with minimal exertion. On admission, he was also noted to have complaint of increasing drooling from the mouth. He denied any hemoptysis. He presented to the emergency room with the above. In the emergency room, he was noted to be in moderate respiratory distress. Venous blood gas revealed acute on chronic hypoxemic, hypercapnic respiratory failure for which he was placed on supplemental O2. 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 He denies any history of recent travel. There is no history of DVT or PE in the past. PAST MEDICAL HISTORY: Again, includes morbid obesity, childhood asthma, multiple allergies. REVIEW OF SYSTEMS: Denies orthopnea. Positive cough. Positive shortness of breath. No fever, no chills, no hemoptysis, no abdominal pain. Positive lower extremity edema. CURRENT MEDICATIONS: Include Symbicort, Zithromax, eye drops, heparin, Nicoderm patch, DuoNeb, albuterol, and Protonix. PHYSICAL EXAMINATION: General: The patient is a morbidly obese white male well developed, well nourished awake, dyspneic at rest. Vital Signs: He is currently afebrile. Blood pressure is 127/80, respiratory rate is 20, O2 saturation 86% on 4 L. HEENT: Normocephalic and atraumatic. Neck: Supple. Heart: Regular S1, S2. Chest: Bilateral expiratory and inspiratory wheezes. Abdomen: Soft. Bowel sounds are positive. Extremities: Bilateral lower extremity edema. LABORATORIES: BUN 15, creatinine 1, WBC 11.5, hemoglobin 14.4, hematocrit 46.5 with a platelet count of 246,000. Blood gas: PH 7.41, PCO2 of 59, PO2 of 68, bicarbonate 36, and saturation of 94.1 that was on unknown quanitity of oxygen. Venous blood gas: PH 7.34, PCO2 of 73, PO2 of 47, bicarbonate 38. IMAGING: Chest CT unofficial reveals cardiomegaly, bilateral pleural thickening along with effusion. No definitive infiltrates or . Possibly mild pulmonary congestion. Echocardiogram reveals normal left ventricular function normal, right ventricle is severely dilated. Right ventricular systolic function severity reduces pulmonary artery pressure. Right ventricular systolic pressure is greater than 60 mm. IMPRESSION: 1. Acute on chronic hypoxemic, hypercapnic respiratory failure secondary to . 2. Likely obesity hypoventilation syndrome. 3. Likely obstructive sleep apnea. 4. Rule out possible mild congestive heart failure. 5. History of tobacco abuse. PLAN: Supplemental O2 to maintain O2 saturation of 90% or greater. BiPAP at night. Sleep screen. IV steroids. Inhaled bronchodilators. Lasix. Duplex lower extremities rule out DVT. DVT prophylaxis. Send a D-dimer. Mj [id number]
[2017-07-30] MEDS: methylPREDNISolone NA SUCC 40 MG/1 ML VIAL IVPUSH SCH ×2 (14:36→20:43)
[2017-07-30] MEDS ORDERED: PT OWN MED DRAWER 7, Y5N ONE (15:01)
--- NOTE | 2017-07-30 15:12 | PN ---
Teaching Attending Note Name of Resident: Tera Figueroa ATTENDING PHYSICIAN STATEMENT I saw and evaluated the patient. I reviewed the resident's note and discussed the case with the resident. I agree with the resident's findings and plan as documented. SUBJECTIVE: seen at 12:30 . Complains of no CP. has SOB. has no fever even at home. denies productive cough . OBJECTIVE: NAD , Awake alert and oriented . edema and erythema over around eyes . NL tongue and no edema on uvula CV: RRR, no MRG , distant heart sounds Lungs : decreased breath sounds at bases. no crackles . short neck, hard to evaluate for JVD. Ext: no edema . DP 2+ on R . . 1+ L Abd: obese, soft, NT, ND , NL BS ASSESSMENT AND PLAN: 52 y/o man with h/o morbid obesity , Childhood asthma and nicotine dependence who presented with SOB x 3 days and was found to have acute hypoxic hypercapnic resp failure 1- Acute hypoxic hypercapnic resp failure. Likely due to acute COPD exacerbation with hypoventilation form body habitus . Also has severe pulmonary hypertension due to undiagnosed RANJIT. Clinically PNA is not suspected. Acute left sided CHF exacerbation is less likely. but clinically he has R sided heart failure ( likely chronic ) - CT of chest without contrast , with no PNA - Echo: with severe dilation of R sided heart with Mod TR and severe pulm HTN - Appreciate pulm recs: cont steroids, Nebs and BIPAP. D Dimer - heck CTA - Card consult . D/w Dr. Espino. Hold any diuresis until PE is r/o - D/W Dr. Toussaint. Tx to ICU CCT 45 min Critical Care Total Critical Care Time (in minutes): 45 Critical Care Statement: The care of this patient involved high complexity decision making to prevent further life threatening deterioration of the patient 's condition and/or to evaluate & treat vital organ system(s) failure or risk of failure.
[2017-07-30 15:22] LABS: ARTERIAL BLD GAS O2 SATURATION 86.6 % (90-98.9); ARTERIAL BLOOD GAS BASE EXCESS 9.7 meq/l (-2-2); ARTERIAL BLOOD GAS HCO3 40.6 meq/L (22-26); ARTERIAL BLOOD GAS PO2 62.4 mmHg (80-100); ARTERIAL BLOOD GAS pH 7.26 (7.35-7.45)
[2017-07-30 15:27] LABS: ALLENS TEST POSITIVE
[2017-07-30] MEDS ORDERED: HEPARIN NA (PORCINE) 5,000 UNITS/ML 1ML VIAL IVPUSH PRN ×2 (15:27)
[2017-07-30 15:28] LABS: ART PUNCT SITE RIGHT RADIAL; LPM/O2% 35
[2017-07-30 15:29] LABS: PT. ON O2? YES; TYPE OF O2 BIPAP I 14 E8; VENT RATE 14
[2017-07-30] MEDS ORDERED: HEPARIN - 25,000 UNIT in SODIUM CHLORIDE 495 ML IV SCH (15:30)
--- NOTE | 2017-07-30 17:07 | CON.CARD ---
Consult Consult Specialty:: Cardiology Referred by:: Hospitalist Medicine Reason for Consultation:: Acute hypercapneic/hypoxemic respiratory failure - History of Present Illness Chief Complaint: Dyspnea History of Present Illness: 52 y/o M presented with SOB and acute and chronic hypercapenic/hypoxemic respiratory failure, placed on bipap, cannot provide history. - History Source History Provided By: Medical Record Limitations to Obtaining History: Clinical Condition - Alcohol/Substance Use Hx Alcohol Use: Yes (SOCIAL) - Smoking History Smoking history: Never smoked Have you smoked in the past 12 months: Yes Aproximately how many cigarettes per day: 20 Home Medications - Allergies Allergies/Adverse Reactions: Allergies Allergy/AdvReac Type Severity Reaction Status Date / Time No Known Allergies Allergy Verified 07/29/17 17:56 - Home Medications Home Medications: Ambulatory Orders NK [No Known Home Medication] 07/29/17 Review of Systems - Review of Systems Cardiovascular: reports: Shortness of Breath Respiratory: reports: SOB - Risk Factors Known Risk Factors: Yes: Smoking Vital Signs: Vital Signs Temperature 98.6 F 07/30/17 16:58 Pulse Rate 104 H 07/30/17 16:58 Respiratory Rate 21 07/30/17 16:58 Blood Pressure 141/104 07/30/17 16:58 O2 Sat by Pulse Oximetry (%) 96 07/30/17 14:00 Constitutional: Yes: No Distress, Calm Neck: Yes: Supple Respiratory: Yes: Regular, Diminished, On BiPap, Rhonchi Gastrointestinal: Yes: Soft, Abdomen, Obese, Hypoactive Bowel Sounds Cardiovascular: Yes: Regular Rate and Rhythm JVD: No Carotid Bruit: No Heart Sounds: Yes: S1, S2 Murmur: Yes: Systolic Murmur, Grade 1 Edema: Yes Edema: LLE: 1+, RLE: 1+ - Other Data Labs, Other Data: CBC, BMP 07/30/17 06:01 07/30/17 06:01 INR, PTT INR 1.29 (0.82-1.09) H 07/29/17 20:18 ST @ 106 LAE, PRWP Echo: Report Reviewed Ejection Fraction %: LVEF > or = 40 % Imaging - Results Cat Scan: Report Reviewed (No acute pulmonary process) Problem List - Problems (1) Acute on chronic respiratory failure with hypoxia and hypercapnia Code(s): J96.21 - ACUTE AND CHRONIC RESPIRATORY FAILURE WITH HYPOXIA J96.22 - ACUTE AND CHRONIC RESPIRATORY FAILURE WITH HYPERCAPNIA (2) Asthma Code(s): J45.909 - UNSPECIFIED ASTHMA, UNCOMPLICATED Qualifiers: Asthma severity: unspecified severity (3) COPD exacerbation Code(s): J44.1 - CHRONIC OBSTRUCTIVE PULMONARY DISEASE W (ACUTE) EXACERBATION (4) Cor pulmonale Code(s): I27.81 - COR PULMONALE (CHRONIC) (5) Morbid obesity Code(s): E66.01 - MORBID (SEVERE) OBESITY DUE TO EXCESS CALORIES (6) Pulmonary HTN Code(s): I27.20 - PULMONARY HYPERTENSION, UNSPECIFIED (7) Sleep apnea Code(s): G47.30 - SLEEP APNEA, UNSPECIFIED Qualifiers: Sleep apnea type: obstructive Qualified Code(s): G47.33 - Obstructive sleep apnea (adult) (pediatric); G47.33 - Obstructive sleep apnea ( adult) (pediatric) Assessment/Plan 07/30/2017 Echo: with severe dilation of R sided heart with Mod TR and severe pulm HTN ASSESSMENT: 1. Acute on hypoxemic/hypercapneic respiratory failure 2. Acute COPD exacerbation 3. Obesity/hypoventilation syndrome 4. Severe pulm HTN with cor pulmonale 5. Morbid obesity 6. OSAS suspect 7. Tobacco abuse P:1. Rule out PE, check BNP 2. BD, Bipap and O2 as needed, IV steroids with GI protection 3. Diuretics after CTA 4. PSG as outpatient, smoking cessation, RHC to confirm severe pulm HTN 5. DVT prophylaxis 6. Thank you for consultative opportunity
--- NOTE | 2017-07-30 18:40 | PN ---
Progress Note (short form) - Note Progress Note: This is a 52 yo M with PMH of urinary incontinence, chronic knee pain and mild asthma, who presented to the ED due to worsening SOB, right ear pain, b/l eye discharge, and runny nose x 5 days. On presentation to the ED, patient was in hypoxic hypercarbic respiratory failure with an O2 sat 82% on RA, with diffuse facial edema/erythema. Acute hypercapneic/hypoxemic respiratory failure 2/2 COPD exacerbation or obesity hypoventilation syndrome -awaiting baseline PTT, before starting a/c heparin drip -going for CTA to r/o PE -currently on BiPAP: settings: IPAP 20, EPAP 10, rate 21, %02 55. 02 sat 92% -awaiting stat BNP
[2017-07-30 19:54] LABS: INR 1.18 (0.82-1.09); PROTHROMBIN TIME (PATIENT) 13.3 SEC (9.98-11.88)
[2017-07-30 20:08] LABS: ARTERIAL BLD GAS O2 SATURATION 90.4 % (90-98.9); ARTERIAL BLOOD GAS BASE EXCESS 9.4 meq/l (-2-2)
[2017-07-30 20:16] LABS: ARTERIAL BLOOD GAS pH 7.17 (7.35-7.45)
[2017-07-30 20:17] LABS: ALLENS TEST POSITIVE; ART PUNCT SITE RIGHT RADIAL; ARTERIAL BLOOD GAS HCO3 43.7 meq/L (22-26); MECH. VENT. NO; PT. ON O2? YES; TYPE OF O2 BIPAP
[2017-07-30 20:18] LABS: VENT RATE 20; VT/PRESS 20/10
[2017-07-30] MEDS ORDERED: SUCCINYLCHOLINE CHLORIDE 200 MG/10 ML VIAL ONE (20:22)
[2017-07-30] MEDS ORDERED: PROPOFOL 100 ML ONE (20:22)
[2017-07-30] MEDS ORDERED: DOPAMINE 400 MG/D5W - 250 ML IVPB ONE (20:32)
--- NOTE | 2017-07-30 21:16 | CONSULT ---
Consult Consult Specialty:: Pulmonary critical care Reason for Consultation:: Hypoxemic respiratory failure - History of Present Illness Chief Complaint: Dyspnea, facial swelling History of Present Illness: 52 yo morbidly obese male with h/o ?chronic asthma, urinary incontinence, knee pain who has poor medical follow up (hasn't seen a PMD in awhile, not on any home meds) who presented to ED yesterday c/o nebulous acute on chronic complaints. Reported dyspnea, facial swelling/itching, runny nose for the past 5 days. On admission to ER he was found to have hypoxic on RA and was placed on BiPAP. Admission labs notable for WBC 13.6, bicarb 37, ABG 7.41/59/68, BNP 3621. He was started on steroids, dosed ceftriaxone/azithro and transferred to the floor for further management. CT chest obtained and did not show any acute processes making PNA less likely. TTE obtained and showed severely dilated RV with severe pulmonary hypertension (RVSP >60). Earlier today pt became more altered and ABG showed worsening hypercapnia (7.26/93/62) on BiPAP of 14/8. He was then transferred to ICU for further management. Current Medications Albuterol Sulfate (Ventolin 0.083% Nebulizer Soln -) 1 amp NEB Q4H PRN PRN Reason: SHORT OF BREATH/WHEEZING Albuterol/Ipratropium (Duoneb -) 1 amp NEB Q4H PRN PRN Reason: SHORTNESS OF BREATH Budesonide/Formoterol Fumarate (Symbicort 160/4.5mcg -) 2 puff IH BID MINDI Last Admin: 07/30/17 09:18 Dose: 2 puff Chlorhexidine Gluconate (Hibiclens For Decolonization -) 1 applic TP HS MINDI Heparin Sodium (Porcine) (Heparin -) 1,000 unit IVPUSH PRN PRN PRN Reason: Heparin Heparin Sodium (Porcine) (Heparin -) 5,000 unit IVPUSH PRN PRN PRN Reason: Heparin Heparin Sodium (Porcine) 25, (000 unit/ Sodium Chloride) 500 mls @ 20 mls/hr IV TITR MINDI; 1,000 UNIT/HR PRN Reason: Protocol Last Admin: 07/30/17 20:42 Dose: 20 mls/hr Dopamine HCl 400,000 mcg/ (Sodium Chloride) 250 mls @ 14.22 mls/hr IV TITR MINDI ; 2 MCG/KG/MIN PRN Reason: Protocol Methylprednisolone Sodium Succinate (Solu-Medrol -) 60 mg IVPUSH Q6H-IV MINDI Last Admin: 07/30/17 20:43 Dose: 60 mg Mupirocin (Bactroban Ointment (For Decolonization) -) 1 applic NS BID MINDI Stop: 08/04/17 21:59 Nicotine (Nicoderm Patch -) 7 mg TD DAILY MINDI Last Admin: 07/30/17 09:18 Dose: 7 mg - Alcohol/Substance Use Hx Alcohol Use: Yes (SOCIAL) - Smoking History Smoking history: Never smoked Have you smoked in the past 12 months: Yes Aproximately how many cigarettes per day: 20 Home Medications - Allergies Allergies/Adverse Reactions: Allergies Allergy/AdvReac Type Severity Reaction Status Date / Time No Known Allergies Allergy Verified 07/29/17 17:56 - Home Medications Home Medications: Ambulatory Orders NK [No Known Home Medication] 07/29/17 Physical Exam Vital Signs: Vital Signs Temperature 97.8 F 07/30/17 18:00 Pulse Rate 96 H 07/30/17 18:40 Respiratory Rate 15 07/30/17 18:40 Blood Pressure 146/94 07/30/17 18:40 O2 Sat by Pulse Oximetry (%) 92 L 07/30/17 18:48 Constitutional: Yes: Obese Eyes: Yes: Other (periorbital swelling) Cardiovascular: Yes: Other (distant heart sounds) Respiratory: Yes: Diminished. No: Wheezes Gastrointestinal: Yes: Abdomen, Obese. No: Tenderness Edema: Yes Peripheral Pulses WNL: Yes Labs: CBC, BMP 07/30/17 06:01 07/30/17 06:01 Imaging - Results Chest X-ray: Report Reviewed, Image Reviewed Cat Scan: Report Reviewed, Image Reviewed Ultrasound: Report Reviewed Other: Report Reviewed (TTE) Assessment/Plan Hypercapnic/hypoxemic respiratory failure of unclear etiology, ?COPD exacerbation vs viral PNA vs fluid overload. Less likely bacterial PNA given no infiltrate on CT chest. PE can not be ruled out at this time, though LE dopplers are neg and RV failure is likely 2/2 chronic hypoxia. RANJIT/OHS (ABG on admission and elevated bicarb c/w chronic CO2 retention) Right heart failure possibly in the setting of chronic hypoxia Severe pulmonary hypertension ?Allergic reaction PLAN: -cont BiPAP (increased to 18/05) -repeat ABG on above mentioned settings -low threshold to intubate -send viral swab -cont nebs -cont steroids -cont budesonide -no abx at this time -gentle diuresis for even to out -trend BNP -heparin drip -too unstable for CTA at this time -strict NPO -GI ppx -notify family of pt's admission to ICU JAI Romero Critical care time: 40 min
[2017-07-30] MEDS ORDERED: FUROSEMIDE 40 MG/4 ML INJECTABLE VIAL IVPUSH ONE (21:48)
[2017-07-30] MEDS: MUPIROCIN 2% TOPICAL OINTMENT FOR DECOLONIZATION NS SCH (22:18)
[2017-07-30] MEDS: CHLORHEXIDINE GLUCONATE 4% CLEANSER FOR DECOLONIZATION TP SCH (22:18)
[2017-07-30 22:20] LABS: ARTERIAL BLD GAS O2 SATURATION 90.8 % (90-98.9); ARTERIAL BLOOD GAS BASE EXCESS 9.7 meq/l (-2-2)
[2017-07-30 22:22] LABS: ALLENS TEST POSITIVE; ART PUNCT SITE RIGHT RADIAL; PT. ON O2? YES; TYPE OF O2 BIPAP
[2017-07-30 22:23] LABS: VENT RATE 26; VT/PRESS 24/10
[2017-07-30 22:24] LABS: ARTERIAL BLOOD GAS HCO3 43.4 meq/L (22-26); ARTERIAL BLOOD GAS pH 7.19 (7.35-7.45)
[2017-07-30] MEDS: DOPAMINE HCL 400,000 MCG in SODIUM CHLORIDE 240 ML IV SCH (23:48)
[2017-07-30] MEDS: MIDAZOLAM 100 MG in SODIUM CHLORIDE 100 ML IVPB SCH (23:49)
[2017-07-30] MEDS: FENTANYL INJECTION 500 MCG in DEXTROSE 5%-WATER - 90 ML IJ SCH (23:49)
[2017-07-31 00:57] LABS: ARTERIAL BLD GAS O2 SATURATION 88.8 % (90-98.9); ARTERIAL BLOOD GAS BASE EXCESS 12.8 meq/l (-2-2); ARTERIAL BLOOD GAS HCO3 38.9 meq/L (22-26); ARTERIAL BLOOD GAS pH 7.46 (7.35-7.45)
[2017-07-31 01:01] LABS: ALLENS TEST POSITIVE; ART PUNCT SITE RIGHT RADIAL; LPM/O2% 60; PT. ON O2? YES; TYPE OF O2 VENT
[2017-07-31 01:02] LABS: VENT RATE 26; VT/PRESS 500
[2017-07-31 01:04] LABS: ARTERIAL BLOOD GAS PO2 49.7 mmHg (80-100)
[2017-07-31] MEDS ORDERED: BENZOIN/ALOE VERA/STORAX/TOLU 58 ML BOTTLE ONE (01:04)
[2017-07-31] MEDS: FENTANYL INJECTION 500 MCG in DEXTROSE 5%-WATER - 90 ML IJ SCH ×3 (01:20→22:55)
[2017-07-31] MEDS: MIDAZOLAM 100 MG in SODIUM CHLORIDE 100 ML IVPB SCH ×3 (01:22→23:15)
[2017-07-31] MEDS: methylPREDNISolone NA SUCC 40 MG/1 ML VIAL IVPUSH SCH ×5 (02:16→20:47)
[2017-07-31] MEDS: BUDESONIDE/FORMETEROL FUMARATE 160/4.5 mcg INHALER IH SCH ×2 (02:17→10:28)
[2017-07-31 06:47] LABS: ANION GAP 8 (8-16); CO2 34 mmol/L (21-32); CREATININE 0.7 mg/dL (0.7-1.3); GLUCOSE,RANDOM 139 mg/dL (74-106)
--- NOTE | 2017-07-31 08:17 | PN ---
Teaching Attending Note Name of Resident: Tera Figueroa ATTENDING PHYSICIAN STATEMENT I saw and evaluated the patient. I reviewed the resident's note and discussed the case with the resident. I agree with the resident's findings and plan as documented. SUBJECTIVE: was intubated last night . after then , no events OBJECTIVE: intubated , sedated. round equal pupils , reactive to light . CV: RRR, no MRG , distant heart sounds Lungs : equal air entry anteriorly over b/l lung khan Ext: 1+ edema . DP 2+ on R. 1+ L Abd: obese, soft, NT, ND , NL BS ASSESSMENT AND PLAN: 52 y/o man with h/o morbid obesity , Childhood asthma and nicotine dependence who presented with SOB x 3 days and was found to have acute hypoxic hypercapnic resp failure 1- Acute hypoxic hypercapnic resp failure. Likely due to acute COPD exacerbation with hypoventilation form body habitus . Pulmonary HTN could be chronic, but PE needs to be r/o . - COnt mechanical ventilation - CTA is still pending. d/w ICU staff, will give paralytics before imaging - cont heparin gtt, will increase dose and bolus pending this am PTT - goal PTT 60-80 -cont steroids, Nebs and BIPAP. D Dimer -Hold any diuresis until PE is r/o CCT 30 min Critical Care Total Critical Care Time (in minutes): 30 Critical Care Statement: The care of this patient involved high complexity decision making to prevent further life threatening deterioration of the patient 's condition and/or to evaluate & treat vital organ system(s) failure or risk of failure.
--- NOTE | 2017-07-31 08:20 | PN ---
Physical Exam: SUBJECTIVE: Pt was transferred to ICU yesterday on BiPap and became more lethargic. ABG last night showed increasing CO2 retention and decision to intubate was made. No other events noted. HPI limited due to clinical status. Pt remains intubated and sedated. OBJECTIVE: Vital Signs Period Temp Pulse Resp BP Sys/Melgoza Pulse Ox Last 24 Hr 97.6 F-98.6 F 66-108 15-26 99-168/56-115 80-99 GENERAL: Intubated and sedated, morbid obesity. HEENT: NIDHI, ET tube connected to vent. No JVD seen LUNGS: Ventilated on AC, diminished breath sounds bibasillary HEART: RRR, S1, S2 without murmur ABDOMEN: Soft, obese, nondistended, normoactive bowel sounds, could not assess tenderness EXTREMITIES: 2+ pulses, 1-2+ LE edema noted SKIN: Warm, no rashes or lesions noted Laboratory Results - last 24 hr 07/29/17 07/30/17 07/30/17 23:37 06:01 14:00 PT with INR INR PTT (Actin FS) D-Dimer 694 H Anticoagulation Therapy Puncture Site ABG pH ABG pCO2 at Pt Temp ABG pO2 at Pt Temp ABG HCO3 ABG O2 Sat (Measured) ABG O2 Content ABG Base Excess Neto Test O2 Delivery Device Oxygen Flow Rate Vent Mode Vent Rate Mechanical Rate PEEP Pressure Support Vent Sodium Potassium Chloride Carbon Dioxide Anion Gap BUN Creatinine Random Glucose Hemoglobin A1c % 6.3 H Calcium B-Natriuretic Peptide Urine Color Lt. yellow Urine Appearance Clear Urine pH 6.0 Ur Specific [place] <= 1.005 Urine Protein Negative Urine Glucose (UA) Negative Urine Ketones Negative Urine Blood 1+ H Urine Nitrite Negative Urine Bilirubin Negative Urine Urobilinogen 0.2 Ur Leukocyte Esterase Negative Urine RBC None Urine WBC None 07/30/17 07/30/17 07/30/17 15:10 18:15 18:15 PT with INR 13.30 H INR 1.18 H PTT (Actin FS) 30.0 D-Dimer Anticoagulation Therapy Puncture Site Right radial ABG pH 7.26 L D ABG pCO2 at Pt Temp 92.8 H* D ABG pO2 at Pt Temp 62.4 L ABG HCO3 40.6 H* ABG O2 Sat (Measured) 86.6 L ABG O2 Content 16.1 ABG Base Excess 9.7 H Neto Test Positive O2 Delivery Device Bipap i 14 e8 Oxygen Flow Rate [address] Vent Rate 14 Mechanical Rate PEEP Pressure Support Vent Sodium Potassium Chloride Carbon Dioxide Anion Gap BUN Creatinine Random Glucose Hemoglobin A1c % Calcium B-Natriuretic Peptide 3621.40 H Urine Color Urine Appearance Urine pH Ur Specific [place] Urine Protein Urine Glucose (UA) Urine Ketones Urine Blood Urine Nitrite Urine Bilirubin Urine Urobilinogen Ur Leukocyte Esterase Urine RBC Urine WBC 07/30/17 07/30/17 07/31/17 19:55 22:10 00:45 PT with INR INR PTT (Actin FS) D-Dimer Anticoagulation Therapy Y Puncture Site Right radial Right radial Right radial ABG pH 7.17 L* 7.19 L* 7.46 H D ABG pCO2 at Pt Temp 124.0 H* D 118.0 H* 54.8 H D ABG pO2 at Pt Temp 72.0 L 73.0 L 49.7 L* D ABG HCO3 43.7 H* 43.4 H* 38.9 H ABG O2 Sat (Measured) 90.4 90.8 88.8 L ABG O2 Content 17.6 17.8 16.3 ABG Base Excess 9.4 H 9.7 H 12.8 H Neto Test Positive Positive Positive O2 Delivery Device Bipap Bipap Vent Oxygen Flow Rate 55% 55% 60 Vent Mode S/t S/t A/c Vent Rate 20 26 26 Mechanical Rate No Y PEEP 8.0 Pressure Support Vent 20/10 24/10 500 Sodium Potassium Chloride Carbon Dioxide Anion Gap BUN Creatinine Random Glucose Hemoglobin A1c % Calcium B-Natriuretic Peptide Urine Color Urine Appearance Urine pH Ur Specific [place] Urine Protein Urine Glucose (UA) Urine Ketones Urine Blood Urine Nitrite Urine Bilirubin Urine Urobilinogen Ur Leukocyte Esterase Urine RBC Urine WBC 07/31/17 07/31/17 07/31/17 00:45 02:30 06:10 PT with INR INR PTT (Actin FS) 35.2 H D-Dimer Anticoagulation Therapy Y Puncture Site ABG pH ABG pCO2 at Pt Temp ABG pO2 at Pt Temp ABG HCO3 ABG O2 Sat (Measured) ABG O2 Content ABG Base Excess Neto Test O2 Delivery Device Y Oxygen Flow Rate Y Vent Mode Y Vent Rate Y Mechanical Rate Y PEEP Pressure Support Vent Y Sodium 141 Potassium 4.1 Chloride 99 Carbon Dioxide 34 H Anion Gap 8 BUN 16 Creatinine 0.7 D Random Glucose 139 H Hemoglobin A1c % Calcium 8.0 L B-Natriuretic Peptide Urine Color Urine Appearance Urine pH Ur Specific [place] Urine Protein Urine Glucose (UA) Urine Ketones Urine Blood Urine Nitrite Urine Bilirubin Urine Urobilinogen Ur Leukocyte Esterase Urine RBC Urine WBC Active Medications Generic Name Dose Route Start Last Admin Trade Name Freq PRN Reason Stop Dose Admin Albuterol Sulfate 1 amp 07/30/17 00:17 Ventolin 0.083% Nebulizer Soln - NEB Q4H PRN SHORT OF BREATH/WHEEZING Albuterol/Ipratropium 1 amp 07/30/17 13:25 Duoneb - NEB Q4H PRN SHORTNESS OF BREATH Budesonide/Formoterol Fumarate 2 puff 07/30/17 10:00 07/31/17 02:17 Symbicort 160/4.5mcg - IH Not Given BID MINDI Chlorhexidine Gluconate 1 applic 07/30/17 22:00 07/30/17 22:18 Hibiclens For Decolonization - TP 1 applic HS MINDI Administration Heparin Sodium (Porcine) 1,000 unit 07/30/17 15:27 Heparin - IVPUSH PRN PRN Heparin Heparin Sodium (Porcine) 5,000 unit 07/30/17 15:27 07/31/17 04:16 Heparin - IVPUSH 5,000 unit PRN PRN Administration Heparin Heparin Sodium (Porcine) 25, 500 mls @ 20 mls/hr 07/30/17 15:30 07/31/17 03:13 000 unit/ Sodium Chloride IV 1,150 unit/hr TITR MINDI Titration Protocol 1,000 UNIT/HR Dopamine HCl 400,000 mcg/ 250 mls @ 14.22 mls/hr 07/30/17 20:30 07/30/17 23:48 Sodium Chloride IV Not Given TITR MINDI Protocol 2 MCG/KG/MIN Midazolam HCl 100 mg/ Sodium 100 mls @ 1 mls/hr 07/30/17 23:15 07/31/17 02:13 Chloride IVPB 25 mls/hr TITR MINDI Administration Protocol 1 MG/HR Fentanyl 500 mcg/ Dextrose 100 mls @ 5 mls/hr 07/30/17 23:15 07/31/17 04:16 IJ 7 mls/hr TITR MINDI Administration 25 MCG/HR Methylprednisolone Sodium Succinate 60 mg 07/30/17 15:00 07/31/17 02:16 Solu-Medrol - IVPUSH 60 mg Q6H-IV MINDI Administration Mupirocin 1 applic 07/30/17 22:00 07/30/17 22:18 Bactroban Ointment (For Decolonization) - NS 08/04/17 21:59 1 applic BID MINDI Administration Nicotine 7 mg 07/30/17 10:00 07/30/17 09:18 Nicoderm Patch - TD 7 mg DAILY MINDI Administration ASSESSMENT/PLAN: 1) Acute hypoxic hypercapnic respiratory failure --2/2 to acute COPD exacerbation --D-Dimer 695, CTA to r/o PE --Continue on heparin gtt --Protocol adjusted for increased body habitus --Subtherapeutic currently --Will bolus Heparin 2000U now --Goal PTTP 60-80 --Duonebs continued --solumedrol 60mg q6 on board --Continue intubation and sedation FEN: Electrolyte abnormalities: None Nutrition: Vented; npo PPX DVT - Currently on heparin gtt for PE Dispo: Continue ICU monitoring; continue ventilator CCTime: 35 minutes Case discussed with Dr. Petra Figueroa, DO - Internal Medicine PGY-1 Visit type - Emergency Visit Emergency Visit: No - New Patient This patient is new to me today: No - Critical Care Critical Care patient: Yes Total Critical Care Time (in minutes): 35 Critical Care Statement: The care of this patient involved high complexity decision making to prevent further life threatening deterioration of the patient 's condition and/or to evaluate & treat vital organ system(s) failure or risk of failure.
[2017-07-31] MEDS ORDERED: HEPARIN NA (PORCINE) 5,000 UNITS/ML 1ML VIAL IVPUSH PRN ×6 (08:44→11:57)
[2017-07-31] MEDS ORDERED: ALBUTEROL SO4 2.5/IPRATROPIUM 0.5 INH SOL 3 ML VIAL.NEB. NEB PRN (08:44)
[2017-07-31] MEDS ORDERED: ALBUTEROL SO4 0.083% IH SOL 2.5 MG/3 ML VIAL.NEB. NEB PRN (08:51)
[2017-07-31 08:58] LABS: ARTERIAL BLD GAS O2 SATURATION 93.4 % (90-98.9); ARTERIAL BLOOD GAS BASE EXCESS 13.9 meq/l (-2-2); ARTERIAL BLOOD GAS HCO3 38.1 meq/L (22-26); ARTERIAL BLOOD GAS PO2 59.6 mmHg (80-100); ARTERIAL BLOOD GAS pH 7.56 (7.35-7.45)
[2017-07-31] MEDS ORDERED: PT OWN MED DRAWER 7, Y5N ONE ×4 (08:58→21:14)
[2017-07-31 09:02] LABS: ALLENS TEST POSITIVE; ART PUNCT SITE RIGHT RADIAL; PT. ON O2? YES
[2017-07-31 09:03] LABS: LPM/O2% 100; TYPE OF O2 OTHER
[2017-07-31] MEDS ORDERED: HEPARIN - 25,000 UNIT in SODIUM CHLORIDE 495 ML IV SCH (09:15)
--- NOTE | 2017-07-31 09:25 | PN ---
Progress Note (short form) - Note Progress Note: PULM/CCM Pt seen and examined in the ICU 24HR: -intubated, p/F on 100--> 59, alkalemic--vent/PEEP adjusted, repeat gas pending -well sedated -dry CT chest without focal infiltrate, some congestion -diuresed given severe hypoxemia/pHTN -well sedated this am -still planning for CTA but awaiting stable oxygenation -pTT sub therapeutic Vital Signs Temp 97.6 F 07/31/17 07:00 Pulse 67 07/31/17 08:00 Resp 26 H 07/31/17 08:50 BP 132/80 07/31/17 08:00 Pulse Ox 98 07/31/17 08:50 Intake & Output 07/30/17 07/30/17 07/31/17 11:59 23:59 11:59 Intake Total 660 Output Total 3600 Balance -2940 Weight 189.6 kg 187.651 kg Intake: IV 576 Heparin - 25,000 Unit In 276 Normal Saline - 495 ml @ 1,000 UNIT/HR 20 mls/hr IV TITR MINDI Rx#: [id number] Versed - 100 mg In Normal 300 Saline - 100 ml @ 1 MG/ HR 1 mls/hr IVPB TITR MINDI Rx#:[id number] IVPB 84 Output: Urine 3600 External Catheter 2000 [place] 1600 Other: Voiding Method Incontinent Indwelling Catheter # Unmeasured Voids Void 1 Height 5 ft 10 in Body Mass Index (BMI) 50.2 Weight Measurement Method Built in [facility] Built in [facility] ABG Results ABG pH 7.56 (7.35-7.45) H 07/31/17 08:55 ABG pCO2 at Pt Temp 42.8 mmHg (35-45) D 07/31/17 08:55 ABG pO2 at Pt Temp 59.6 mmHg (80-100) L 07/31/17 08:55 ABG HCO3 38.1 meq/L (22-26) H 07/31/17 08:55 ABG O2 Sat (Measured) 93.4 % (90-98.9) 07/31/17 08:55 ABG O2 Content 17.7 % vol (15-22) 07/31/17 08:55 ABG Base Excess 13.9 meq/l (-2-2) H 07/31/17 08:55 CBCD WBC 11.5 K/mm3 (4.0-10.0) H 07/30/17 06:01 RBC 5.60 M/mm3 (4.00-5.60) 07/30/17 06:01 Hgb 14.4 GM/dL (11.7-16.9) 07/30/17 06:01 Hct 45.6 % (35.4-49) 07/30/17 06:01 MCV 81.4 fl (80-96) 07/30/17 06:01 MCHC 31.6 g/dl (32.0-35.9) L 07/30/17 06:01 RDW 17.3 % (11.9-15.9) H 07/30/17 06:01 Plt Count 246 K/MM3 (134-434) 07/30/17 06:01 MPV 7.9 fl (7.5-11.1) 07/30/17 06:01 CMP Sodium 141 mmol/L (136-145) 07/31/17 06:10 Potassium 4.1 mmol/L (3.5-5.1) 07/31/17 06:10 Chloride 99 mmol/L (98-107) 07/31/17 06:10 Carbon Dioxide 34 mmol/L (21-32) H 07/31/17 06:10 Anion Gap 8 (8-16) 07/31/17 06:10 BUN 16 mg/dL (7-18) 07/31/17 06:10 Creatinine 0.7 mg/dL (0.7-1.3) D 07/31/17 06:10 Creat Clearance w eGFR > 60 (>60) 07/30/17 06:01 Calcium 8.0 mg/dL (8.5-10.1) L 07/31/17 06:10 Total Bilirubin 0.5 mg/dL (0.2-1.0) D 07/30/17 06:01 AST 17 U/L (15-37) 07/30/17 06:01 ALT 34 U/L (12-78) 07/30/17 06:01 Alkaline Phosphatase 96 U/L (45-117) 07/30/17 06:01 Total Protein 7.0 g/dl (6.4-8.2) 07/30/17 06:01 Albumin 3.2 g/dl (3.4-5.0) L 07/30/17 06:01 Troponin, BNP 07/30/17 18:15 B-Natriuretic Peptide 3621.40 H Active Medications Albuterol Sulfate (Ventolin 0.083% Nebulizer Soln -) 1 amp NEB Q4H PRN PRN Reason: SHORT OF BREATH/WHEEZING Albuterol/Ipratropium (Duoneb -) 1 amp NEB Q4H PRN PRN Reason: SHORTNESS OF BREATH Budesonide/Formoterol Fumarate (Symbicort 160/4.5mcg -) 2 puff IH BID MINDI Chlorhexidine Gluconate (Hibiclens For Decolonization -) 1 applic TP HS MINDI Last Admin: 07/30/17 22:18 Dose: 1 applic Heparin Sodium (Porcine) (Heparin -) 1,000 unit IVPUSH PRN PRN PRN Reason: Heparin Heparin Sodium (Porcine) (Heparin -) 5,000 unit IVPUSH PRN PRN PRN Reason: Heparin Dopamine HCl 400,000 mcg/ (Sodium Chloride) 250 mls @ 14.22 mls/hr IV TITR MINDI ; 2 MCG/KG/MIN PRN Reason: Protocol Last Admin: 07/30/17 23:48 Dose: Not Given Midazolam HCl 100 mg/ Sodium (Chloride) 100 mls @ 1 mls/hr IVPB TITR MINDI; 1 MG/ HR PRN Reason: Protocol Last Admin: 07/31/17 02:13 Dose: 25 mls/hr Fentanyl 500 mcg/ Dextrose 100 mls @ 5 mls/hr IJ TITR MINDI PRN Reason: 25 MCG/HR Last Admin: 07/31/17 04:16 Dose: 7 mls/hr Heparin Sodium (Porcine) 25, (000 unit/ Sodium Chloride) 500 mls @ 20 mls/hr IV TITR MINDI; 1,000 UNIT/HR PRN Reason: Protocol Methylprednisolone Sodium Succinate (Solu-Medrol -) 60 mg IVPUSH Q6H-IV MINDI Last Admin: 07/31/17 09:04 Dose: Not Given Mupirocin (Bactroban Ointment (For Decolonization) -) 1 applic NS BID MINDI Stop: 08/04/17 21:59 Last Admin: 07/30/17 22:18 Dose: 1 applic Nicotine (Nicoderm Patch -) 7 mg TD DAILY MINDI CT chest reviewed CXR reviewed, low lung volumes, congestive, small effusions PE: HEENT: PERRL PULM: diminished bases, no wheezes CV: RRR, distant heart sounds ABD: morbid obesity, +BS EXT: pitting edema LE, + pulses Neuro: RASS -4 Hypercapnic/hypoxemic respiratory failure of unclear etiology, ?COPD exacerbation vs viral PNA vs fluid overload. Less likely bacterial PNA given no infiltrate on CT chest. PE can not be ruled out at this time, though LE dopplers are neg and RV failure is likely 2/2 chronic hypoxia. RANJIT/OHS (ABG on admission and elevated bicarb c/w chronic CO2 retention) Right heart failure possibly in the setting of chronic hypoxia Severe pulmonary hypertension ?Allergic reaction PLAN: -full mech ventilation, do not over ventilate -cont nebs -steroid taper -no abx at this time, low threshold to start CAP coverage -gentle diuresis -trend BNP -empiric heparin drip -if improves CTA at this time -strict NPO, can start feeds -GI ppx Kem Villalpando ACNP [id number] Critical care time: 35 min
[2017-07-31 09:56] LABS: ARTERIAL BLD GAS O2 SATURATION 95.6 % (90-98.9); ARTERIAL BLOOD GAS BASE EXCESS 14.1 meq/l (-2-2); ARTERIAL BLOOD GAS HCO3 39.1 meq/L (22-26); ARTERIAL BLOOD GAS PO2 73.3 mmHg (80-100); ARTERIAL BLOOD GAS pH 7.52 (7.35-7.45)
[2017-07-31 09:59] LABS: ALLENS TEST POSITIVE; ART PUNCT SITE RIGHT RADIAL; LPM/O2% 100%; MECH. VENT. ESPRIT; PT. ON O2? YES; TYPE OF O2 OTHER
[2017-07-31 10:00] LABS: VENT RATE 20; VT/PRESS 500
[2017-07-31] MEDS ORDERED: ROCURONIUM BROMIDE 50 MG/5 ML VIAL IVPUSH ONE (10:12)
[2017-07-31] MEDS: NICOTINE 7 MG/24 HOURS TOPICAL PATCH TD SCH (10:23)
[2017-07-31] MEDS ORDERED: HEPARIN NA (PORCINE) 5,000 UNITS/ML 1ML VIAL IVPUSH ONE (12:00)
[2017-07-31] MEDS: HEPARIN - 25,000 UNIT in SODIUM CHLORIDE 495 ML IV SCH ×2 (12:45→21:56)
[2017-07-31] MEDS: MUPIROCIN 2% TOPICAL OINTMENT FOR DECOLONIZATION NS SCH ×2 (13:14→21:26)
--- NOTE | 2017-07-31 14:30 | PN ---
Progress Note, Physician Chief Complaint: Remains on mechanical ventilator History of Present Illness: Patient was seen and examined in ICU. Intubated. Chart was reviewed Sedated - Current Medication List Current Medications: Active Medications Albuterol Sulfate (Ventolin 0.083% Nebulizer Soln -) 1 amp NEB Q4H PRN PRN Reason: SHORT OF BREATH/WHEEZING Albuterol/Ipratropium (Duoneb -) 1 amp NEB Q4H PRN PRN Reason: SHORTNESS OF BREATH Budesonide/Formoterol Fumarate (Symbicort 160/4.5mcg -) 2 puff IH BID MINDI Last Admin: 07/31/17 10:28 Dose: Not Given Chlorhexidine Gluconate (Hibiclens For Decolonization -) 1 applic TP HS MINDI Last Admin: 07/30/17 22:18 Dose: 1 applic Heparin Sodium (Porcine) (Heparin -) 2,000 unit IVPUSH PRN PRN PRN Reason: Heparin Heparin Sodium (Porcine) (Heparin -) 7,000 unit IVPUSH PRN PRN PRN Reason: Heparin Dopamine HCl 400,000 mcg/ (Sodium Chloride) 250 mls @ 14.22 mls/hr IV TITR MINDI ; 2 MCG/KG/MIN PRN Reason: Protocol Last Admin: 07/30/17 23:48 Dose: Not Given Midazolam HCl 100 mg/ Sodium (Chloride) 100 mls @ 1 mls/hr IVPB TITR MINDI; 1 MG/ HR PRN Reason: Protocol Last Titration: 07/31/17 07:00 Dose: 30 mg/hr Fentanyl 500 mcg/ Dextrose 100 mls @ 5 mls/hr IJ TITR MINDI PRN Reason: 25 MCG/HR Last Titration: 07/31/17 07:00 Dose: 50 mcg/hr Heparin Sodium (Porcine) 25, (000 unit/ Sodium Chloride) 500 mls @ 20 mls/hr IV TITR MINDI; 1,000 UNIT/HR PRN Reason: Protocol Last Admin: 07/31/17 12:45 Dose: 25 mls/hr Methylprednisolone Sodium Succinate (Solu-Medrol -) 60 mg IVPUSH Q6H-IV MINDI Last Admin: 07/31/17 09:04 Dose: Not Given Mupirocin (Bactroban Ointment (For Decolonization) -) 1 applic NS BID MINDI Stop: 08/04/17 21:59 Last Admin: 07/31/17 13:14 Dose: Not Given Nicotine (Nicoderm Patch -) 7 mg TD DAILY MINDI Last Admin: 07/31/17 10:23 Dose: 7 mg - Objective Vital Signs: Vital Signs Temperature 98.0 F 07/31/17 10:00 Pulse Rate 62 07/31/17 14:00 Respiratory Rate 24 07/31/17 14:00 Blood Pressure 128/81 07/31/17 14:00 O2 Sat by Pulse Oximetry (%) 100 07/31/17 10:35 Cardiovascular: Yes: Regular Rate and Rhythm, S1, S2 Respiratory: Yes: Mechanically Ventilated Gastrointestinal: Yes: Normal Bowel Sounds, Soft, Abdomen, Obese. No: Tenderness Edema: No Labs: CBC, BMP 07/30/17 06:01 07/31/17 06:10 INR, PTT INR 1.18 (0.82-1.09) H 07/30/17 18:15 Problem List - Problems (1) Acute on chronic respiratory failure with hypoxia and hypercapnia Code(s): J96.21 - ACUTE AND CHRONIC RESPIRATORY FAILURE WITH HYPOXIA J96.22 - ACUTE AND CHRONIC RESPIRATORY FAILURE WITH HYPERCAPNIA (2) Acute respiratory failure with hypoxia and hypercarbia Code(s): J96.01 - ACUTE RESPIRATORY FAILURE WITH HYPOXIA J96.02 - ACUTE RESPIRATORY FAILURE WITH HYPERCAPNIA (3) COPD exacerbation Code(s): J44.1 - CHRONIC OBSTRUCTIVE PULMONARY DISEASE W (ACUTE) EXACERBATION (4) Cor pulmonale Code(s): I27.81 - COR PULMONALE (CHRONIC) (5) Morbid obesity Code(s): E66.01 - MORBID (SEVERE) OBESITY DUE TO EXCESS CALORIES (6) Pulmonary HTN Code(s): I27.20 - PULMONARY HYPERTENSION, UNSPECIFIED (7) Sleep apnea Code(s): G47.30 - SLEEP APNEA, UNSPECIFIED Qualifiers: Sleep apnea type: obstructive Qualified Code(s): G47.33 - Obstructive sleep apnea (adult) (pediatric); G47.33 - Obstructive sleep apnea ( adult) (pediatric) Assessment/Plan 1. Acute on hypoxemic/hypercapneic respiratory failure currently on mechanical ventilator 2. Acute COPD exacerbation 3. Obesity/hypoventilation syndrome 4. Severe pulm HTN with cor pulmonale 5. Morbid obesity 6. OSAS suspect 7. Tobacco abuse PLAN: 1. Continue ventilatory support. 2. Continue IV steroids with GI protection 3. Diuretics as needed 4. DVT prophylaxis 5. Currently on Heparin drip empirically for suspicion for PE 6. Chest CTA Guarded Further plans are to follow Velasquez Gaines MD
--- NOTE | 2017-07-31 18:12 | PROC ---
Central Line Insertion Indication: Poor Venous Access Risks and Benefits Explained: Yes Consent on Chart: Yes Central Line: Triple Lumen Catheter Anesthesia: 1% Lidocaine Sterile Technique: Yes Ultrasound Guided Assistance: Yes Position: Right Internal Jugular Post Insertion: Yes: Bilateral Breath Sounds, Chest X-Ray Ordered Sterile Dressing Applied: Yes Remarks: difficult due to body habitus
[2017-07-31] MEDS: CEFTRIAXONE 1 G/50 ML PREMIX 50 ML IVPB SCH (20:47)
[2017-07-31] MEDS: AZITHROMYCIN IVPB 500 MG in DEXTROSE 5%-WATER - 250 ML IVPB SCH (21:30)
[2017-07-31] MEDS: CHLORHEXIDINE GLUCONATE 4% CLEANSER FOR DECOLONIZATION TP SCH (21:31)
[2017-07-31] MEDS: DOPAMINE HCL 400,000 MCG in SODIUM CHLORIDE 240 ML IV SCH (23:52)
[2017-08-01] MEDS: MIDAZOLAM 100 MG in SODIUM CHLORIDE 100 ML IVPB SCH (01:16)
[2017-08-01] MEDS: methylPREDNISolone NA SUCC 40 MG/1 ML VIAL IVPUSH SCH ×4 (03:57→21:29)
[2017-08-01] MEDS: FENTANYL INJECTION 500 MCG in DEXTROSE 5%-WATER - 90 ML IJ SCH ×2 (03:59→21:27)
[2017-08-01] MEDS: BUDESONIDE/FORMETEROL FUMARATE 160/4.5 mcg INHALER IH SCH ×2 (04:37→17:59)
[2017-08-01 04:38] LABS: MCH 25.3 pg (25.7-33.7); MEAN CELL VOLUME 81.6 fl (80-96); MEAN PLT VOLUME 8.2 fl (7.5-11.1); PLATELET COUNT 234 K/MM3 (134-434); RDW 17.5 % (11.9-15.9); WHITE BLOOD COUNT 8.1 K/mm3 (4.0-10.0)
[2017-08-01 05:05] LABS: INR 1.17 (0.82-1.09); PROTHROMBIN TIME (PATIENT) 13.2 SEC (9.98-11.88)
[2017-08-01 05:16] LABS: ALBUMIN 2.8 g/dl (3.4-5.0); ALK PHOS 66 U/L (45-117); ANION GAP 8 (8-16); BILIRUBIN,TOTAL 0.5 mg/dL (0.2-1.0); CALCIUM 7.9 mg/dL (8.5-10.1); CO2 36 mmol/L (21-32); CREATININE 0.9 mg/dL (0.7-1.3); GLUCOSE,RANDOM 122 mg/dL (74-106); MAGNESIUM 2.2 mg/dL (1.8-2.4); PHOSPHOROUS 5.2 mg/dL (2.5-4.9); SGOT/AST 11 U/L (15-37); SGPT/ALT 26 U/L (12-78); TOT PROT 5.7 g/dl (6.4-8.2)
[2017-08-01] MEDS ORDERED: PT OWN MED DRAWER 7, Y5N ONE ×2 (07:47→09:24)
[2017-08-01] MEDS ORDERED: FUROSEMIDE 40 MG/4 ML INJECTABLE VIAL ONE (08:17)
--- NOTE | 2017-08-01 08:51 | PN ---
Progress Note (short form) - Note Progress Note: Subjective: no events over night Objective: Vital Signs: Last Vital Signs Temp Pulse Resp BP Pulse Ox 98.8 F 66 16 131/81 92 L 08/01/17 10:24 08/01/17 12:00 08/01/17 14:58 08/01/17 12:00 08/01/17 10:42 Laboratory Results - last 24 hr 07/31/17 08/01/17 08/01/17 20:00 04:00 04:00 WBC 8.1 RBC 5.37 Hgb 13.6 Hct 43.8 MCV 81.6 MCH 25.3 L MCHC 31.0 L RDW 17.5 H Plt Count 234 MPV 8.2 PT with INR INR PTT (Actin FS) 35.2 H D 49.6 H D Sodium Potassium Chloride Carbon Dioxide Anion Gap BUN Creatinine Creat Clearance w eGFR Random Glucose Calcium Phosphorus Magnesium Total Bilirubin AST ALT Alkaline Phosphatase Total Protein Albumin 08/01/17 08/01/17 04:00 04:00 WBC RBC Hgb Hct MCV MCH MCHC RDW Plt Count MPV PT with INR 13.20 H INR 1.17 H PTT (Actin FS) Sodium 144 Potassium 4.3 Chloride 100 Carbon Dioxide 36 H Anion Gap 8 BUN 21 H D Creatinine 0.9 D Creat Clearance w eGFR > 60 Random Glucose 122 H Calcium 7.9 L Phosphorus 5.2 H Magnesium 2.2 Total Bilirubin 0.5 AST 11 L D ALT 26 D Alkaline Phosphatase 66 D Total Protein 5.7 L Albumin 2.8 L Physical Exam: intubated , sedated. round equal pupils , reactive to light . CV: RRR, no MRG , distant heart sounds Lungs : equal air entry anteriorly over b/l lung khan Ext: non pitting edema on LE . DP 2+ on R. 1+ L Abd: obese, soft, NT, ND , NL BS ASSESSMENT AND PLAN: 52 y/o man with h/o morbid obesity , Childhood asthma and nicotine dependence who presented with SOB x 3 days and was found to have acute hypoxic hypercapnic resp failure 1- Acute hypoxic hypercapnic resp failure. Likely due to acute COPD exacerbation with hypoventilation form body habitus . Pulmonary HTN could be chronic, but PE needs to be r/o . - COnt mechanical ventilation - CTA is still pending read( IV dye wasnot fully infused ) . - cont heparin gtt, until imaging is reviewed by pulm for further decisions on AC - goal PTT 60-80 -cont steroids, Nebs and BIPAP. - was started on Abx yesterday CCT 30 min Visit type - Emergency Visit Emergency Visit: Yes ED Registration Date: 07/29/17 Care time: The patient presented to the Emergency Department on the above date and was hospitalized for further evaluation of their emergent condition. - New Patient This patient is new to me today: No - Critical Care Critical Care patient: Yes Total Critical Care Time (in minutes): 30 Critical Care Statement: The care of this patient involved high complexity decision making to prevent further life threatening deterioration of the patient 's condition and/or to evaluate & treat vital organ system(s) failure or risk of failure.
[2017-08-01] MEDS: MUPIROCIN 2% TOPICAL OINTMENT FOR DECOLONIZATION NS SCH ×2 (09:18→21:29)
[2017-08-01] MEDS: CEFTRIAXONE 1 G/50 ML PREMIX 50 ML IVPB SCH (09:19)
[2017-08-01] MEDS: AZITHROMYCIN IVPB 500 MG in DEXTROSE 5%-WATER - 250 ML IVPB SCH (09:48)
--- NOTE | 2017-08-01 10:36 | PN ---
Progress Note, Physician Chief Complaint: Remains on mechanical ventilator History of Present Illness: Patient was seen and examined in ICU. Intubated. Chart was reviewed Sedated - Current Medication List Current Medications: Active Medications Albuterol Sulfate (Ventolin 0.083% Nebulizer Soln -) 1 amp NEB Q4H PRN PRN Reason: SHORT OF BREATH/WHEEZING Albuterol/Ipratropium (Duoneb -) 1 amp NEB Q4H PRN PRN Reason: SHORTNESS OF BREATH Budesonide/Formoterol Fumarate (Symbicort 160/4.5mcg -) 2 puff IH BID MINDI Last Admin: 08/01/17 04:37 Dose: Not Given Chlorhexidine Gluconate (Hibiclens For Decolonization -) 1 applic TP HS MINDI Last Admin: 07/31/17 21:31 Dose: 1 applic Heparin Sodium (Porcine) (Heparin -) 2,000 unit IVPUSH PRN PRN PRN Reason: Heparin Heparin Sodium (Porcine) (Heparin -) 7,000 unit IVPUSH PRN PRN PRN Reason: Heparin Last Admin: 07/31/17 21:55 Dose: 7,000 unit Dopamine HCl 400,000 mcg/ (Sodium Chloride) 250 mls @ 14.22 mls/hr IV TITR MINDI ; 2 MCG/KG/MIN PRN Reason: Protocol Last Admin: 07/31/17 23:52 Dose: Not Given Midazolam HCl 100 mg/ Sodium (Chloride) 100 mls @ 1 mls/hr IVPB TITR MINDI; 1 MG/ HR PRN Reason: Protocol Last Admin: 08/01/17 01:16 EST Dose: 10 mls/hr Fentanyl 500 mcg/ Dextrose 100 mls @ 5 mls/hr IJ TITR MINDI PRN Reason: 25 MCG/HR Last Admin: 08/01/17 03:59 Dose: 20 mls/hr Heparin Sodium (Porcine) 25, (000 unit/ Sodium Chloride) 500 mls @ 20 mls/hr IV TITR MINDI; 1,000 UNIT/HR PRN Reason: Protocol Last Admin: 07/31/17 21:56 Dose: 28 mls/hr Azithromycin 500 mg/ Dextrose 250 mls @ 250 mls/hr IVPB DAILY MINDI Last Admin: 08/01/17 09:48 Dose: 250 mls/hr CEFTRIAXONE 1 G/50 ML PREMIX (Ceftriaxone 1 Gm-D5w Bag) 50 mls @ 100 mls/hr IVPB DAILY [facility] Last Admin: 08/01/17 09:19 Dose: 100 mls/hr Methylprednisolone Sodium Succinate (Solu-Medrol -) 60 mg IVPUSH Q6H-IV MINDI Last Admin: 08/01/17 08:51 Dose: 60 mg Mupirocin (Bactroban Ointment (For Decolonization) -) 1 applic NS BID MINDI Stop: 08/04/17 21:59 Last Admin: 08/01/17 09:18 Dose: 1 applic Nicotine (Nicoderm Patch -) 7 mg TD DAILY MINDI Last Admin: 07/31/17 10:23 Dose: 7 mg - Objective Vital Signs: Vital Signs Temperature 98.8 F 08/01/17 10:24 Pulse Rate 64 08/01/17 10:24 Respiratory Rate 16 08/01/17 10:24 Blood Pressure 138/92 08/01/17 10:24 O2 Sat by Pulse Oximetry (%) 97 08/01/17 00:29 Cardiovascular: Yes: Regular Rate and Rhythm, S1, S2 Respiratory: Yes: Diminished, Mechanically Ventilated Gastrointestinal: Yes: Normal Bowel Sounds, Soft, Abdomen, Obese. No: Tenderness Edema: No Labs: CBC, BMP 08/01/17 04:00 08/01/17 04:00 INR, PTT INR 1.17 (0.82-1.09) H 08/01/17 04:00 Problem List - Problems (1) Acute on chronic respiratory failure with hypoxia and hypercapnia Code(s): J96.21 - ACUTE AND CHRONIC RESPIRATORY FAILURE WITH HYPOXIA J96.22 - ACUTE AND CHRONIC RESPIRATORY FAILURE WITH HYPERCAPNIA (2) Acute respiratory failure with hypoxia and hypercarbia Code(s): J96.01 - ACUTE RESPIRATORY FAILURE WITH HYPOXIA J96.02 - ACUTE RESPIRATORY FAILURE WITH HYPERCAPNIA (3) COPD exacerbation Code(s): J44.1 - CHRONIC OBSTRUCTIVE PULMONARY DISEASE W (ACUTE) EXACERBATION (4) Cor pulmonale Code(s): I27.81 - COR PULMONALE (CHRONIC) (5) Morbid obesity Code(s): E66.01 - MORBID (SEVERE) OBESITY DUE TO EXCESS CALORIES (6) Pulmonary HTN Code(s): I27.20 - PULMONARY HYPERTENSION, UNSPECIFIED (7) Sleep apnea Code(s): G47.30 - SLEEP APNEA, UNSPECIFIED Qualifiers: Sleep apnea type: obstructive Qualified Code(s): G47.33 - Obstructive sleep apnea (adult) (pediatric); G47.33 - Obstructive sleep apnea ( adult) (pediatric) Assessment/Plan 1. Acute on hypoxemic/hypercapneic respiratory failure currently on mechanical ventilator 2. Acute COPD exacerbation 3. Obesity/hypoventilation syndrome 4. Severe pulm HTN with cor pulmonale 5. Morbid obesity 6. OSAS suspect 7. Tobacco abuse PLAN: 1. Continue ventilatory support. 2. Continue IV steroids with GI protection 3. Diuretics as needed and monitor electrolytes 4. DVT prophylaxis 5. Currently on Heparin drip empirically for suspicion for PE 6. Await official Chest CTA result Guarded Further plans are to follow Velasquez Gaines MD
[2017-08-01] MEDS ORDERED: FUROSEMIDE 40 MG/4 ML INJECTABLE VIAL IVPUSH SCH (14:00)
--- NOTE | 2017-08-01 15:19 | PN ---
Progress Note (short form) - Note Progress Note: PULM/CCM Pt seen & examined in the ICU. Intubated sedated resting comfortable on the Vent , NAD. Active Medications Albuterol Sulfate (Ventolin 0.083% Nebulizer Soln -) 1 amp NEB Q4H PRN PRN Reason: SHORT OF BREATH/WHEEZING Albuterol/Ipratropium (Duoneb -) 1 amp NEB Q4H PRN PRN Reason: SHORTNESS OF BREATH Budesonide/Formoterol Fumarate (Symbicort 160/4.5mcg -) 2 puff IH BID MINDI Last Admin: 08/01/17 04:37 Dose: Not Given Chlorhexidine Gluconate (Hibiclens For Decolonization -) 1 applic TP HS MINDI Last Admin: 07/31/17 21:31 Dose: 1 applic Heparin Sodium (Porcine) (Heparin -) 2,000 unit IVPUSH PRN PRN PRN Reason: Heparin Heparin Sodium (Porcine) (Heparin -) 7,000 unit IVPUSH PRN PRN PRN Reason: Heparin Last Admin: 07/31/17 21:55 Dose: 7,000 unit Dopamine HCl 400,000 mcg/ (Sodium Chloride) 250 mls @ 14.22 mls/hr IV TITR MINDI ; 2 MCG/KG/MIN PRN Reason: Protocol Last Admin: 07/31/17 23:52 Dose: Not Given Midazolam HCl 100 mg/ Sodium (Chloride) 100 mls @ 1 mls/hr IVPB TITR MINDI; 1 MG/ HR PRN Reason: Protocol Last Admin: 08/01/17 01:16 EST Dose: 10 mls/hr Fentanyl 500 mcg/ Dextrose 100 mls @ 5 mls/hr IJ TITR MINDI PRN Reason: 25 MCG/HR Last Admin: 08/01/17 03:59 Dose: 20 mls/hr Heparin Sodium (Porcine) 25, (000 unit/ Sodium Chloride) 500 mls @ 20 mls/hr IV TITR MINDI; 1,000 UNIT/HR PRN Reason: Protocol Last Admin: 07/31/17 21:56 Dose: 28 mls/hr Azithromycin 500 mg/ Dextrose 250 mls @ 250 mls/hr IVPB DAILY MINDI Last Admin: 08/01/17 09:48 Dose: 250 mls/hr CEFTRIAXONE 1 G/50 ML PREMIX (Ceftriaxone 1 Gm-D5w Bag) 50 mls @ 100 mls/hr IVPB DAILY MINDI Last Admin: 08/01/17 09:19 Dose: 100 mls/hr Methylprednisolone Sodium Succinate (Solu-Medrol -) 60 mg IVPUSH Q6H-IV MINDI Last Admin: 08/01/17 08:51 Dose: 60 mg Mupirocin (Bactroban Ointment (For Decolonization) -) 1 applic NS BID MINDI Stop: 08/04/17 21:59 Last Admin: 08/01/17 09:18 Dose: 1 applic Nicotine (Nicoderm Patch -) 7 mg TD DAILY MINDI Last Admin: 07/31/17 10:23 Dose: 7 mg Vital Signs Period Temp Pulse Resp BP Sys/Melgoza Pulse Ox Last 24 Hr 98.4 F-98.8 F 58-71 16-26 120-148/72-95 90-97 Intake & Output 07/29/17 07/30/17 07/31/17 08/01/17 23:59 23:59 23:59 22:59 Intake Total 1359 996 Output Total 5300 1800 Balance -3941 -804 Weight 181.437 kg 189.6 kg 187.651 kg 186.4 kg CBC, BMP 08/01/17 04:00 08/01/17 04:00 Microbiology 07/31/17 04:00 Sputum - Endotrachea Suction/Ventilator Gram Stain - Final 07/31/17 04:00 Sputum - Endotrachea Suction/Ventilator Sputum Culture - Preliminary NORMAL RESPIRATORY JERRY 07/31/17 01:30 Urine - Urine Valdivia Urine Culture - Final NO GROWTH OBTAINED 07/29/17 18:22 Blood - Peripheral Venous Blood Culture - Preliminary NO GROWTH OBTAINED AFTER 48 HOURS, INCUBATION TO CONTINUE FOR 3 DAYS. 07/29/17 18:22 Blood - Peripheral Venous Blood Culture - Preliminary NO GROWTH OBTAINED AFTER 48 HOURS, INCUBATION TO CONTINUE FOR 3 DAYS. 07/31/17 01:30 Nasopharyngeal Swab Influenza Types A,B Antigen (ALVARADO) - Final 07/31/17 01:30 Nasopharyngeal Swab - Final IMAGING: CXR 07/31: R IJ TLC & ETT in good position, L pulmonary effusion. CTA CHEST 07/31: shows gross cardiomegally & congestion but no infiltrate (My Read) ASSESS: 1. Acute on hypoxemic/hypercapneic respiratory failure 2. Acute COPD exacerbation 3. Obesity/hypoventilation syndrome 4. Severe pulm HTN with cor pulmonale 5. Morbid obesity 6. OSAS suspect 7. Tobacco abuse PLAN: 1. Continue vent support. 2. Wean FiO2 as tolerated 3. Nebs 4. Abx 5. Continue IV steroids 6. FSs 7. SSI prn 8. Diuretics as needed and monitor electrolytes 9. F/u on CTA Chest 10. Start Trophic Feeds 11. PPI 12. Currently on Heparin drip empirically for suspicion for PE [facility] 4530 PULM/CCM
[2017-08-01] MEDS: NICOTINE 7 MG/24 HOURS TOPICAL PATCH TD SCH (17:59)
[2017-08-01] MEDS: HEPARIN - 25,000 UNIT in SODIUM CHLORIDE 495 ML IV SCH ×2 (18:00→23:30)
[2017-08-01] MEDS: CHLORHEXIDINE GLUCONATE 4% CLEANSER FOR DECOLONIZATION TP SCH (21:30)
[2017-08-02] MEDS: methylPREDNISolone NA SUCC 40 MG/1 ML VIAL IVPUSH SCH ×3 (03:20→17:27)
[2017-08-02 04:57] LABS: ARTERIAL BLOOD GAS BASE EXCESS 11.3 meq/l (-2-2); ARTERIAL BLOOD GAS HCO3 38.1 meq/L (22-26); ARTERIAL BLOOD GAS PO2 73.8 mmHg (80-100); ARTERIAL BLOOD GAS pH 7.42 (7.35-7.45)
[2017-08-02 05:00] LABS: ALLENS TEST POSITIVE
[2017-08-02 05:01] LABS: ART PUNCT SITE RIGHT RADIAL; PT. ON O2? YES
[2017-08-02 05:08] LABS: LPM/O2% 100; TYPE OF O2 VENT
[2017-08-02 05:09] LABS: VENT RATE 16; VT/PRESS 500
[2017-08-02] MEDS: BUDESONIDE/FORMETEROL FUMARATE 160/4.5 mcg INHALER IH SCH ×3 (05:30→22:58)
[2017-08-02] MEDS ORDERED: FUROSEMIDE 40 MG/4 ML INJECTABLE VIAL IVPUSH ONE (05:40)
[2017-08-02 06:23] LABS: MCH 25.6 pg (25.7-33.7); MCHC 31.2 g/dl (32.0-35.9); MEAN CELL VOLUME 82.2 fl (80-96); MEAN PLT VOLUME 8.2 fl (7.5-11.1); PLATELET COUNT 211 K/MM3 (134-434); RDW 17.6 % (11.9-15.9); WHITE BLOOD COUNT 7.5 K/mm3 (4.0-10.0)
[2017-08-02] MEDS ORDERED: FUROSEMIDE 40 MG/4 ML INJECTABLE VIAL ONE (06:34)
[2017-08-02] MEDS: DOPAMINE HCL 400,000 MCG in SODIUM CHLORIDE 240 ML IV SCH ×2 (06:42→22:58)
[2017-08-02] MEDS: FUROSEMIDE INJECTION 100 MG in DEXTROSE 5%-WATER - 90 ML IVPB SCH ×2 (06:42→19:30)
[2017-08-02] MEDS: MIDAZOLAM 100 MG in SODIUM CHLORIDE 100 ML IVPB SCH ×2 (06:45→22:25)
[2017-08-02 06:47] LABS: ANION GAP 8 (8-16); CALCIUM 7.8 mg/dL (8.5-10.1); CO2 35 mmol/L (21-32); CREATININE 0.9 mg/dL (0.7-1.3); GLUCOSE,RANDOM 118 mg/dL (74-106); MAGNESIUM 2.3 mg/dL (1.8-2.4); PHOSPHOROUS 4.5 mg/dL (2.5-4.9)
--- NOTE | 2017-08-02 07:30 | PN ---
Physical Exam: SUBJECTIVE: No acute events overnight, pt is intubated and sedated. Pt had Lasix gtt 5mg/hr addes to regiment. Pt now is on versed 10mg/hr gtt, fentanyl 100mcg/hr gtt. pt started on empiric abx yesterday. OBJECTIVE: Vital Signs Period Temp Pulse Resp BP Sys/Melgoza Pulse Ox Last 24 Hr 97.9 F-99.4 F 57-98 16-22 122-142/71-92 90-96 GENERAL: Intubated and sedated, morbid obesity. arousable. HEENT: NIDHI, ET tube connected to vent. No JVD seen LUNGS: Ventilated on AC, diminished breath sounds due to body habitus HEART: Dminished heart sounds due to body habitus, RRR, S1, S2 without appreciable murmur ABDOMEN: Soft, obese, nondistended, normoactive bowel sounds, could not assess tenderness EXTREMITIES: 2+ pulses, 2+ LE edema noted to knees SKIN: Warm, no rashes or lesions noted Laboratory Results - last 24 hr 08/01/17 08/01/17 08/01/17 04:50 14:45 23:00 WBC RBC Hgb Hct MCV MCH MCHC RDW Plt Count MPV PTT (Actin FS) Cancelled 47.8 H 58.7 H Puncture Site ABG pH ABG pCO2 at Pt Temp ABG pO2 at Pt Temp ABG HCO3 ABG O2 Sat (Measured) ABG O2 Content ABG Base Excess Neto Test O2 Delivery Device Oxygen Flow Rate Vent Mode Vent Rate PEEP Pressure Support Vent Sodium Potassium Chloride Carbon Dioxide Anion Gap BUN Creatinine Random Glucose Calcium Phosphorus Magnesium 08/02/17 08/02/17 08/02/17 03:55 06:10 06:10 WBC 7.5 RBC 5.30 Hgb 13.6 Hct 43.6 MCV 82.2 MCH 25.6 L MCHC 31.2 L RDW 17.6 H Plt Count 211 MPV 8.2 PTT (Actin FS) 66.1 H Puncture Site Right radial ABG pH 7.42 ABG pCO2 at Pt Temp 60.0 H D ABG pO2 at Pt Temp 73.8 L ABG HCO3 38.1 H ABG O2 Sat (Measured) 94.0 ABG O2 Content 18.1 ABG Base Excess 11.3 H Neto Test Positive O2 Delivery Device Vent Oxygen Flow Rate 100 Vent Mode A/c Vent Rate 16 PEEP 15.0 Pressure Support Vent 500 Sodium Potassium Chloride Carbon Dioxide Anion Gap BUN Creatinine Random Glucose Calcium Phosphorus Magnesium 08/02/17 06:10 WBC RBC Hgb Hct MCV MCH MCHC RDW Plt Count MPV PTT (Actin FS) Puncture Site ABG pH ABG pCO2 at Pt Temp ABG pO2 at Pt Temp ABG HCO3 ABG O2 Sat (Measured) ABG O2 Content ABG Base Excess Neto Test O2 Delivery Device Oxygen Flow Rate Vent Mode Vent Rate PEEP Pressure Support Vent Sodium 145 Potassium 4.1 Chloride 102 Carbon Dioxide 35 H Anion Gap 8 BUN 24 H Creatinine 0.9 Random Glucose 118 H Calcium 7.8 L Phosphorus 4.5 Magnesium 2.3 Active Medications Generic Name Dose Route Start Last Admin Trade Name Freq PRN Reason Stop Dose Admin Albuterol Sulfate 1 amp 07/31/17 08:51 Ventolin 0.083% Nebulizer Soln - NEB Q4H PRN SHORT OF BREATH/WHEEZING Albuterol/Ipratropium 1 amp 07/31/17 08:44 Duoneb - NEB Q4H PRN SHORTNESS OF BREATH Budesonide/Formoterol Fumarate 2 puff 07/31/17 10:00 08/02/17 05:30 Symbicort 160/4.5mcg - IH Not Given BID MINDI Chlorhexidine Gluconate 1 applic 07/30/17 22:00 08/01/17 21:30 Hibiclens For Decolonization - TP 1 applic HS MINDI Administration Heparin Sodium (Porcine) 2,000 unit 07/31/17 11:57 Heparin - IVPUSH PRN PRN Heparin Heparin Sodium (Porcine) 7,000 unit 07/31/17 11:57 07/31/17 21:55 Heparin - IVPUSH 7,000 unit PRN PRN Administration Heparin Dopamine HCl 400,000 mcg/ 250 mls @ 14.22 mls/hr 07/30/17 20:30 08/02/17 06:42 Sodium Chloride IV Not Given TITR MINDI Protocol 2 MCG/KG/MIN Midazolam HCl 100 mg/ Sodium 100 mls @ 1 mls/hr 07/30/17 23:15 08/02/17 06:45 Chloride IVPB 10 mls/hr TITR MINDI Administration Protocol 1 MG/HR Fentanyl 500 mcg/ Dextrose 100 mls @ 5 mls/hr 07/30/17 23:15 08/01/17 21:27 IJ 20 mls/hr TITR MINDI Administration 25 MCG/HR Heparin Sodium (Porcine) 25, 500 mls @ 20 mls/hr 07/31/17 12:30 08/01/17 23:30 000 unit/ Sodium Chloride IV 36 mls/hr TITR MINDI Administration Protocol 1,000 UNIT/HR Azithromycin 500 mg/ Dextrose 250 mls @ 250 mls/hr 07/31/17 18:30 08/01/17 09: 48 IVPB 250 mls/hr DAILY MINDI Administration CEFTRIAXONE 1 G/50 ML PREMIX 50 mls @ 100 mls/hr 07/31/17 18:30 08/01/17 09:19 Ceftriaxone 1 Gm-D5w Bag IVPB 100 mls/hr DAILY MINDI Administration Furosemide 100 mg/ Dextrose 100 mls @ 5 mls/hr 08/02/17 05:45 08/02/17 06:42 IVPB 5 mls/hr TITR MINDI Administration 5 MG/HR Methylprednisolone Sodium Succinate 60 mg 07/31/17 09:00 08/02/17 03:20 Solu-Medrol - IVPUSH 60 mg Q6H-IV MINDI Administration Mupirocin 1 applic 07/30/17 22:00 08/01/17 21:29 Bactroban Ointment (For Decolonization) - NS 08/04/17 21:59 1 applic BID MINDI Administration Nicotine 7 mg 07/31/17 10:00 08/01/17 17:59 Nicoderm Patch - TD 7 mg DAILY MINDI Administration ASSESSMENT/PLAN: 1) Acute hypoxic hypercapnic respiratory failure --2/2 to acute COPD exacerbation --D-Dimer 695, follow CTA report --Continue on heparin gtt; if CTA negative will d/c --Protocol adjusted for increased body habitus --PTT currently 66 (goal 60-80) --Duonebs continued --solumedrol 60mg q6 on board --Continue to decrease --Pt started on empiric antibiotics; d/w ICU team, will continue for now --Continue mechanical ventilation --Continue lasix gtt FEN: Electrolyte abnormalities: None Nutrition: Glucerna tube feeds PPX DVT - Currently on heparin gtt Dispo: Continue ICU monitoring; continue ventilator CCTime: 35 minutes Case discussed with Dr. Petra Figueroa, DO - Internal Medicine PGY-1 Visit type - Emergency Visit Emergency Visit: No - New Patient This patient is new to me today: No - Critical Care Critical Care patient: Yes Total Critical Care Time (in minutes): 35 Critical Care Statement: The care of this patient involved high complexity decision making to prevent further life threatening deterioration of the patient 's condition and/or to evaluate & treat vital organ system(s) failure or risk of failure.
[2017-08-02] MEDS: MUPIROCIN 2% TOPICAL OINTMENT FOR DECOLONIZATION NS SCH ×2 (09:32→23:00)
[2017-08-02] MEDS: NICOTINE 7 MG/24 HOURS TOPICAL PATCH TD SCH (09:33)
[2017-08-02] MEDS: CEFTRIAXONE 1 G/50 ML PREMIX 50 ML IVPB SCH (09:33)
--- NOTE | 2017-08-02 10:22 | PN ---
Progress Note, Physician History of Present Illness: Sedated and intubated on ventilator. - Current Medication List Current Medications: Active Medications Albuterol Sulfate (Ventolin 0.083% Nebulizer Soln -) 1 amp NEB Q4H PRN PRN Reason: SHORT OF BREATH/WHEEZING Albuterol/Ipratropium (Duoneb -) 1 amp NEB Q4H PRN PRN Reason: SHORTNESS OF BREATH Budesonide/Formoterol Fumarate (Symbicort 160/4.5mcg -) 2 puff IH BID MINDI Last Admin: 08/02/17 05:30 Dose: Not Given Chlorhexidine Gluconate (Hibiclens For Decolonization -) 1 applic TP HS MINDI Last Admin: 08/01/17 21:30 Dose: 1 applic Heparin Sodium (Porcine) (Heparin -) 2,000 unit IVPUSH PRN PRN PRN Reason: Heparin Heparin Sodium (Porcine) (Heparin -) 7,000 unit IVPUSH PRN PRN PRN Reason: Heparin Last Admin: 07/31/17 21:55 Dose: 7,000 unit Dopamine HCl 400,000 mcg/ (Sodium Chloride) 250 mls @ 14.22 mls/hr IV TITR MINDI ; 2 MCG/KG/MIN PRN Reason: Protocol Last Admin: 08/02/17 06:42 Dose: Not Given Midazolam HCl 100 mg/ Sodium (Chloride) 100 mls @ 1 mls/hr IVPB TITR MINDI; 1 MG/ HR PRN Reason: Protocol Last Admin: 08/02/17 06:45 Dose: 10 mls/hr Fentanyl 500 mcg/ Dextrose 100 mls @ 5 mls/hr IJ TITR MINDI PRN Reason: 25 MCG/HR Last Admin: 08/01/17 21:27 Dose: 20 mls/hr Heparin Sodium (Porcine) 25, (000 unit/ Sodium Chloride) 500 mls @ 20 mls/hr IV TITR MINDI; 1,000 UNIT/HR PRN Reason: Protocol Last Titration: 08/02/17 08:00 Dose: 1,800 unit/hr Azithromycin 500 mg/ Dextrose 250 mls @ 250 mls/hr IVPB DAILY [facility] Last Admin: 08/01/17 09:48 Dose: 250 mls/hr CEFTRIAXONE 1 G/50 ML PREMIX (Ceftriaxone 1 Gm-D5w Bag) 50 mls @ 100 mls/hr IVPB DAILY [facility] Last Admin: 08/02/17 09:33 Dose: 100 mls/hr Furosemide 100 mg/ Dextrose 100 mls @ 5 mls/hr IVPB TITR MINDI PRN Reason: 5 MG/HR Last Admin: 08/02/17 06:42 Dose: 5 mls/hr Methylprednisolone Sodium Succinate (Solu-Medrol -) 60 mg IVPUSH Q6H-IV MINDI Last Admin: 08/02/17 09:31 Dose: 60 mg Mupirocin (Bactroban Ointment (For Decolonization) -) 1 applic NS BID MINDI Stop: 08/04/17 21:59 Last Admin: 08/02/17 09:32 Dose: 1 applic Nicotine (Nicoderm Patch -) 7 mg TD DAILY MINDI Last Admin: 08/02/17 09:33 Dose: 7 mg - Objective Vital Signs: Vital Signs Temperature 98.8 F 08/02/17 05:40 Pulse Rate 62 08/02/17 10:04 Respiratory Rate 16 08/02/17 10:04 Blood Pressure 138/83 08/02/17 08:00 O2 Sat by Pulse Oximetry (%) 97 08/02/17 10:12 Constitutional: Yes: No Distress, Calm Neck: Yes: Supple Cardiovascular: Yes: Regular Rate and Rhythm Respiratory: Yes: Regular, Diminished, Intubated, Mechanically Ventilated Gastrointestinal: Yes: Normal Bowel Sounds, Soft, Abdomen, Obese Edema: Yes Edema: LLE: 1+, RLE: 1+ Labs: CBC, BMP 08/02/17 06:10 08/02/17 06:10 INR, PTT INR 1.17 (0.82-1.09) H 08/01/17 04:00 - ....Imaging Chest X-ray: Report Reviewed (Left base changes) Problem List - Problems (1) Acute on chronic respiratory failure with hypoxia and hypercapnia Code(s): J96.21 - ACUTE AND CHRONIC RESPIRATORY FAILURE WITH HYPOXIA J96.22 - ACUTE AND CHRONIC RESPIRATORY FAILURE WITH HYPERCAPNIA (2) Asthma Code(s): J45.909 - UNSPECIFIED ASTHMA, UNCOMPLICATED Qualifiers: Asthma severity: unspecified severity (3) COPD exacerbation Code(s): J44.1 - CHRONIC OBSTRUCTIVE PULMONARY DISEASE W (ACUTE) EXACERBATION (4) Cor pulmonale Code(s): I27.81 - COR PULMONALE (CHRONIC) (5) Morbid obesity Code(s): E66.01 - MORBID (SEVERE) OBESITY DUE TO EXCESS CALORIES (6) Pulmonary HTN Code(s): I27.20 - PULMONARY HYPERTENSION, UNSPECIFIED (7) Sleep apnea Code(s): G47.30 - SLEEP APNEA, UNSPECIFIED Qualifiers: Sleep apnea type: obstructive Qualified Code(s): G47.33 - Obstructive sleep apnea (adult) (pediatric); G47.33 - Obstructive sleep apnea ( adult) (pediatric) Assessment/Plan 07/30/2017 Echo: with severe dilation of R sided heart with Mod TR and severe pulm HTN ASSESSMENT: 1. Acute on hypoxemic/hypercapneic respiratory failure currently on mechanical ventilation 2. Acute COPD exacerbation 3. Obesity/hypoventilation syndrome 4. Severe pulm HTN with cor pulmonale 5. Morbid obesity 6. OSAS suspect 7. Tobacco abuse PLAN: 1. Continue ventilatory support, BD, wean FIO2 as tolerated 2. Continue IV steroids with GI protection 3. Lasix gtt with monitor electrolytes and renal fxn 4. Change heparin gtt to sc 5. Await official Chest CTA result, prelim no PE 6. PSG as outpatient, smoking cessation, RHC to confirm severe pulm HTN
[2017-08-02] MEDS: AZITHROMYCIN IVPB 500 MG in DEXTROSE 5%-WATER - 250 ML IVPB SCH (11:55)
--- NOTE | 2017-08-02 12:42 | PN ---
Teaching Attending Note Name of Resident: Susan Carter ATTENDING PHYSICIAN STATEMENT I saw and evaluated the patient. I reviewed the resident's note and discussed the case with the resident. I agree with the resident's findings and plan as documented. SUBJECTIVE: Pt seen and examined in the ICU. Remains intubated, sedated. Vented on volume assist control with 90% FiO2, PEEP 20. CTA done but not read yet, does not appear to have PE but with extensive bibasilar atelectasis. OBJECTIVE: Last Vital Signs Temp Pulse Resp BP Pulse Ox 99.2 F 62 16 140/82 97 08/02/17 10:00 08/02/17 10:04 08/02/17 11:43 08/02/17 10:00 08/02/17 10:12 Intake & Output 07/31/17 08/01/17 08/01/17 08/02/17 00:59 00:59 23:59 23:59 Intake Total 768 Output Total 600 Balance 168 Weight 411 lb 6.121 oz Gen: intubated, sedated Heart: RRR Lung: distant breath sounds, scattered rhonchi Abd: soft, obese, nontender Ext: + edema CBC, BMP 08/02/17 06:10 08/02/17 06:10 Active Medications Albuterol Sulfate (Ventolin 0.083% Nebulizer Soln -) 1 amp NEB Q4H PRN PRN Reason: SHORT OF BREATH/WHEEZING Albuterol/Ipratropium (Duoneb -) 1 amp NEB Q4H PRN PRN Reason: SHORTNESS OF BREATH Budesonide/Formoterol Fumarate (Symbicort 160/4.5mcg -) 2 puff IH BID MINDI Last Admin: 08/02/17 05:30 Dose: Not Given Chlorhexidine Gluconate (Hibiclens For Decolonization -) 1 applic TP HS MINDI Last Admin: 08/01/17 21:30 Dose: 1 applic Heparin Sodium (Porcine) (Heparin -) 2,000 unit IVPUSH PRN PRN PRN Reason: Heparin Heparin Sodium (Porcine) (Heparin -) 7,000 unit IVPUSH PRN PRN PRN Reason: Heparin Last Admin: 07/31/17 21:55 Dose: 7,000 unit Dopamine HCl 400,000 mcg/ (Sodium Chloride) 250 mls @ 14.22 mls/hr IV TITR MINDI ; 2 MCG/KG/MIN PRN Reason: Protocol Last Admin: 08/02/17 06:42 Dose: Not Given Midazolam HCl 100 mg/ Sodium (Chloride) 100 mls @ 1 mls/hr IVPB TITR MINDI; 1 MG/ HR PRN Reason: Protocol Last Admin: 08/02/17 06:45 Dose: 10 mls/hr Fentanyl 500 mcg/ Dextrose 100 mls @ 5 mls/hr IJ TITR MINDI PRN Reason: 25 MCG/HR Last Admin: 08/01/17 21:27 Dose: 20 mls/hr Heparin Sodium (Porcine) 25, (000 unit/ Sodium Chloride) 500 mls @ 20 mls/hr IV TITR MINDI; 1,000 UNIT/HR PRN Reason: Protocol Last Titration: 08/02/17 08:00 Dose: 1,800 unit/hr Azithromycin 500 mg/ Dextrose 250 mls @ 250 mls/hr IVPB DAILY [facility] Last Admin: 08/02/17 11:55 Dose: 250 mls/hr CEFTRIAXONE 1 G/50 ML PREMIX (Ceftriaxone 1 Gm-D5w Bag) 50 mls @ 100 mls/hr IVPB DAILY [facility] Last Admin: 08/02/17 09:33 Dose: 100 mls/hr Furosemide 100 mg/ Dextrose 100 mls @ 5 mls/hr IVPB TITR MINDI PRN Reason: 5 MG/HR Last Admin: 08/02/17 06:42 Dose: 5 mls/hr Propofol (Diprivan -) 100 mls @ 11.196 mls/hr IVPB TITR MINDI; 10 MCG/KG/MIN PRN Reason: Protocol Methylprednisolone Sodium Succinate (Solu-Medrol -) 60 mg IVPUSH Q6H-IV MINDI Last Admin: 08/02/17 09:31 Dose: 60 mg Mupirocin (Bactroban Ointment (For Decolonization) -) 1 applic NS BID [facility] Stop: 08/04/17 21:59 Last Admin: 08/02/17 09:32 Dose: 1 applic Nicotine (Nicoderm Patch -) 7 mg TD DAILY [facility] Last Admin: 08/02/17 09:33 Dose: 7 mg ASSESSMENT AND PLAN: Acute on Chronic Hypoxic and Hypercapneic Respiratory Failure Acute COPD Exacerbation Morbid Obesity RANJIT/OHS Severe Pulmonary HTN Atelectasis r/o Pneumonia - continue empiric antibiotics - can d/c anticoagulation once official CT read back - inhaled bronchodilators - taper FiO2, PEEP to keep SpO2 >88% - can taper medrol to q8h - lasix gtt - monitor urine output, creatinine - enteral feeds - will lighten sedation and spontaneous breathing trials once oxygen requirements less - DVT/GI prophylaxis - continue ICU monitoring critical care time spent in reviewing chart, evaluating patient and formulating plan 38 min
--- NOTE | 2017-08-02 14:15 | PN ---
Physical Exam: SUBJECTIVE: Patient seen and examined at bedside. -Pt intubated on Wednesday night, PEEP increased from 15-20 -Diuresed with lasix -No acute events overnight Today -Pt on vent A/C 16 RR, TV 500, Fi02 100%, PEEP 15 - 02 sat 95% -Resting comfortably -now on propofol, fentanyl, heparin gtt OBJECTIVE: Vital Signs Period Temp Pulse Resp BP Sys/Melgoza Pulse Ox Last 24 Hr 98.2 F-99.4 F 57-98 12-24 122-142/72-85 94-97 GENERAL: The patient is sedated and on vent, in no acute distress. HEAD: Normal with no signs of trauma. EYES: PERRL, extraocular movements intact, sclera anicteric, conjunctiva clear. NECK: Trachea midline, supple. LUNGS: rhonchi appreciated b/l HEART: Regular rate and rhythm, S1, S2 without murmur, rub or gallop. ABDOMEN: Soft, obese, nontender, nondistended, normoactive bowel sounds EXTREMITIES: 2+ posterior tibial pulses, warm, well-perfused, no edema. NEUROLOGICAL: difficult to assess as pt on sedation Laboratory Results - last 24 hr 08/01/17 08/01/17 08/01/17 04:50 14:45 23:00 WBC RBC Hgb Hct MCV MCH MCHC RDW Plt Count MPV PTT (Actin FS) Cancelled 47.8 H 58.7 H Puncture Site ABG pH ABG pCO2 at Pt Temp ABG pO2 at Pt Temp ABG HCO3 ABG O2 Sat (Measured) ABG O2 Content ABG Base Excess Neto Test O2 Delivery Device Oxygen Flow Rate Vent Mode Vent Rate PEEP Pressure Support Vent Sodium Potassium Chloride Carbon Dioxide Anion Gap BUN Creatinine Random Glucose Calcium Phosphorus Magnesium 08/02/17 08/02/17 08/02/17 03:55 06:10 06:10 WBC 7.5 RBC 5.30 Hgb 13.6 Hct 43.6 MCV 82.2 MCH 25.6 L MCHC 31.2 L RDW 17.6 H Plt Count 211 MPV 8.2 PTT (Actin FS) 66.1 H Puncture Site Right radial ABG pH 7.42 ABG pCO2 at Pt Temp 60.0 H D ABG pO2 at Pt Temp 73.8 L ABG HCO3 38.1 H ABG O2 Sat (Measured) 94.0 ABG O2 Content 18.1 ABG Base Excess 11.3 H Neto Test Positive O2 Delivery Device Vent Oxygen Flow Rate 100 Vent Mode A/c Vent Rate 16 PEEP 15.0 Pressure Support Vent 500 Sodium Potassium Chloride Carbon Dioxide Anion Gap BUN Creatinine Random Glucose Calcium Phosphorus Magnesium 08/02/17 06:10 WBC RBC Hgb Hct MCV MCH MCHC RDW Plt Count MPV PTT (Actin FS) Puncture Site ABG pH ABG pCO2 at Pt Temp ABG pO2 at Pt Temp ABG HCO3 ABG O2 Sat (Measured) ABG O2 Content ABG Base Excess Neto Test O2 Delivery Device Oxygen Flow Rate Vent Mode Vent Rate PEEP Pressure Support Vent Sodium 145 Potassium 4.1 Chloride 102 Carbon Dioxide 35 H Anion Gap 8 BUN 24 H Creatinine 0.9 Random Glucose 118 H Calcium 7.8 L Phosphorus 4.5 Magnesium 2.3 Active Medications Generic Name Dose Route Start Last Admin Trade Name Freq PRN Reason Stop Dose Admin Albuterol Sulfate 1 amp 07/31/17 08:51 Ventolin 0.083% Nebulizer Soln - NEB Q4H PRN SHORT OF BREATH/WHEEZING Albuterol/Ipratropium 1 amp 07/31/17 08:44 Duoneb - NEB Q4H PRN SHORTNESS OF BREATH Budesonide/Formoterol Fumarate 2 puff 07/31/17 10:00 08/02/17 13:56 Symbicort 160/4.5mcg - IH Not Given BID MINDI Chlorhexidine Gluconate 1 applic 07/30/17 22:00 08/01/17 21:30 Hibiclens For Decolonization - TP 1 applic HS MINDI Administration Heparin Sodium (Porcine) 2,000 unit 07/31/17 11:57 Heparin - IVPUSH PRN PRN Heparin Heparin Sodium (Porcine) 7,000 unit 07/31/17 11:57 07/31/17 21:55 Heparin - IVPUSH 7,000 unit PRN PRN Administration Heparin Dopamine HCl 400,000 mcg/ 250 mls @ 14.22 mls/hr 07/30/17 20:30 08/02/17 06:42 Sodium Chloride IV Not Given TITR MINDI Protocol 2 MCG/KG/MIN Midazolam HCl 100 mg/ Sodium 100 mls @ 1 mls/hr 07/30/17 23:15 08/02/17 06:45 Chloride IVPB 10 mls/hr TITR MINDI Administration Protocol 1 MG/HR Fentanyl 500 mcg/ Dextrose 100 mls @ 5 mls/hr 07/30/17 23:15 08/01/17 21:27 IJ 20 mls/hr TITR MINDI Administration 25 MCG/HR Heparin Sodium (Porcine) 25, 500 mls @ 20 mls/hr 07/31/17 12:30 08/02/17 08:00 000 unit/ Sodium Chloride IV 1,800 unit/hr TITR MINDI Titration Protocol 1,000 UNIT/HR Azithromycin 500 mg/ Dextrose 250 mls @ 250 mls/hr 07/31/17 18:30 08/02/17 11: 55 IVPB 250 mls/hr DAILY MINDI Administration CEFTRIAXONE 1 G/50 ML PREMIX 50 mls @ 100 mls/hr 07/31/17 18:30 08/02/17 09:33 Ceftriaxone 1 Gm-D5w Bag IVPB 100 mls/hr DAILY MINDI Administration Furosemide 100 mg/ Dextrose 100 mls @ 5 mls/hr 08/02/17 05:45 08/02/17 06:42 IVPB 5 mls/hr TITR MINDI Administration 5 MG/HR Propofol 100 mls @ 11.196 mls/hr 08/02/17 11:00 Diprivan - IVPB TITR MINDI Protocol 10 MCG/KG/MIN Methylprednisolone Sodium Succinate 60 mg 07/31/17 09:00 08/02/17 09:31 Solu-Medrol - IVPUSH 60 mg Q6H-IV MINDI Administration Mupirocin 1 applic 07/30/17 22:00 08/02/17 09:32 Bactroban Ointment (For Decolonization) - NS 08/04/17 21:59 1 applic BID MINDI Administration Nicotine 7 mg 07/31/17 10:00 08/02/17 09:33 Nicoderm Patch - TD 7 mg DAILY MINDI Administration Pantoprazole Sodium 40 mg 08/03/17 10:00 Protonix Iv IVPUSH DAILY MINDI ASSESSMENT/PLAN: 52 y/o M with PMH of urinary incontinence, chronic knee pain and mild asthma, who presented to the ED due to worsening SOB, right ear pain, b/l eye discharge , and runny nose x 5 days. On presentation to the ED, patient was in hypoxic hypercarbic respiratory failure with an O2 sat 82% on RA, with diffuse facial edema/erythema. 2/2 acute COPD exacerbation or obesity hypoventilation syndrome PULM #hypoxic hypercarbic respiratory failure 2/2 to acute COPD exacerbation or obesity hypoventilation syndrome -pt sedated, on vent: settings 16 RR, TV 500, Fi02 100%, PEEP 15 - 02 sat 95% -most recent ABG improved, compensated met alkalosis pH 7.42 WNL, pCO2 60, HC03 38.1 -vent weaning trials as tolerated -IV solumedrol 50mg IV changed to q8h (from q6h) -continue Ventolin 1 amp q4h PRN -continue Duonebs 1 amp q4h PRN #r/o PE -awaiting official CTA report, once returns can d/c heparin gtt ID #Pulm prophylaxis -Continue azithromycin 500mg, ceftriaxone 1g (Today is Day3) -Will continue to follow ID recs NEURO -pt sedated, on vent -versed d/c , changed to propofol since shorter acting PROPHYLAXIS -DVT: To be started on Hep SQ once heparin drip is d/c -GI: Protonix 40 mg IVP qd F/E/N -Will continue to monitor electrolytes -Glucerna 1.5 tube feeds started -Restart feeds Disposition Continued management in ICU, continue weaning trials as tolerated Visit type - Emergency Visit Emergency Visit: No - New Patient This patient is new to me today: No - Critical Care Critical Care patient: Yes Total Critical Care Time (in minutes): 42 Critical Care Statement: The care of this patient involved high complexity decision making to prevent further life threatening deterioration of the patient 's condition and/or to evaluate & treat vital organ system(s) failure or risk of failure.
[2017-08-02] MEDS: PROPOFOL 100 ML IVPB SCH (14:16)
[2017-08-02] MEDS: HEPARIN - 25,000 UNIT in SODIUM CHLORIDE 495 ML IV SCH (14:17)
--- NOTE | 2017-08-02 16:01 | PN ---
Teaching Attending Note Name of Resident: Tera Figueroa ATTENDING PHYSICIAN STATEMENT I saw and evaluated the patient. I reviewed the resident's note and discussed the case with the resident. I agree with the resident's findings and plan as documented. SUBJECTIVE: no events over night . OBJECTIVE: intubated , sedated. round equal pupils , reactive to light . CV: RRR, no MRG , distant heart sounds Lungs : equal air entry anteriorly over b/l lung khan Ext: non pitting edema on LE. DP 2+ on R. 1+ L Abd: obese, soft, NT, ND , NL BS ASSESSMENT AND PLAN: 52 y/o man with h/o morbid obesity , Childhood asthma and nicotine dependence who presented with SOB x 3 days and was found to have acute hypoxic hypercapnic resp failure 1- Acute hypoxic hypercapnic resp failure. Likely due to acute COPD exacerbation with hypoventilation form body habitus . Pulmonary HTN could be chronic. possible CHF . no evidence of PNA - Cont mechanical ventilation - will contact radiology for a final read on CTA . if Neg will dc AC, d/w Dr. Quintero - giselle started empirically, cont for now - cont decreased dose of steroids - cont lasix gtt 2- Nutrition : cont Glucerna Dispo : ICU level of care Critical Care Total Critical Care Time (in minutes): 40 Critical Care Statement: The care of this patient involved high complexity decision making to prevent further life threatening deterioration of the patient 's condition and/or to evaluate & treat vital organ system(s) failure or risk of failure.
[2017-08-02] MEDS: CHLORHEXIDINE GLUCONATE 4% CLEANSER FOR DECOLONIZATION TP SCH (22:00)
[2017-08-02] MEDS ORDERED: PT OWN MED DRAWER 7, Y5N ONE (22:33)
[2017-08-02] MEDS ORDERED: MIDAZOLAM HCL 2 MG/2 ML SINGLE DOSE VIAL IVPUSH ONE (23:21)
[2017-08-02] MEDS ORDERED: MIDAZOLAM HCL 2 MG/2 ML SINGLE DOSE VIAL ONE (23:22)
[2017-08-03] MEDS ORDERED: FUROSEMIDE 40 MG/4 ML INJECTABLE VIAL ONE ×2 (01:17→22:37)
[2017-08-03] MEDS: methylPREDNISolone NA SUCC 40 MG/1 ML VIAL IVPUSH SCH ×3 (02:17→18:04)
[2017-08-03] MEDS ORDERED: MIDAZOLAM HCL 2 MG/2 ML SINGLE DOSE VIAL ONE ×2 (02:46→06:10)
[2017-08-03] MEDS ORDERED: MIDAZOLAM HCL 2 MG/2 ML SINGLE DOSE VIAL IVPUSH PRN (05:37)
[2017-08-03] MEDS ORDERED: FUROSEMIDE 100 MG/10 ML INJECTABLE VIAL ONE (05:39)
--- NOTE | 2017-08-03 07:16 | PN ---
Progress Note (short form) - Note Progress Note: Chief Complaint: Events noted notes reviewed, remains intubated and sedated, moving all extremities, sinus rhythm noted History of Present Illness: Seen and examined in ICU. Events noted notes reviewed, remains intubated and sedated, moving all extremities, sinus rhythm noted Repeat CT scan of the chest aborted, consider pulmonary angiogrpahy as an alternative, to be discuss with critical care and interventional radiology Echocardiography dated 07/30/2017 revealed severe right sided dilation with moderate TR and severe pulmonary HTN - Current Medication List Current Medications Albuterol Sulfate (Ventolin 0.083% Nebulizer Soln -) 1 amp NEB Q4H PRN PRN Reason: SHORT OF BREATH/WHEEZING Albuterol/Ipratropium (Duoneb -) 1 amp NEB Q4H PRN PRN Reason: SHORTNESS OF BREATH Budesonide/Formoterol Fumarate (Symbicort 160/4.5mcg -) 2 puff IH BID [facility]INDI Last Admin: 08/02/17 22:58 Dose: Not Given Chlorhexidine Gluconate (Hibiclens For Decolonization -) 1 applic TP HS MINDI Last Admin: 08/02/17 22:00 Dose: 1 applic Heparin Sodium (Porcine) (Heparin -) 2,000 unit IVPUSH PRN PRN PRN Reason: Heparin Heparin Sodium (Porcine) (Heparin -) 7,000 unit IVPUSH PRN PRN PRN Reason: Heparin Last Admin: 07/31/17 21:55 Dose: 7,000 unit Dopamine HCl 400,000 mcg/ (Sodium Chloride) 250 mls @ 14.22 mls/hr IV TITR MINDI ; 2 MCG/KG/MIN PRN Reason: Protocol Last Admin: 08/02/17 22:58 Dose: Not Given Midazolam HCl 100 mg/ Sodium (Chloride) 100 mls @ 1 mls/hr IVPB TITR MINDI; 1 MG/ HR PRN Reason: Protocol Last Admin: 08/02/17 22:25 Dose: Not Given Fentanyl 500 mcg/ Dextrose 100 mls @ 5 mls/hr IJ TITR MINDI PRN Reason: 25 MCG/HR Last Admin: 08/01/17 21:27 Dose: 20 mls/hr Heparin Sodium (Porcine) 25, (000 unit/ Sodium Chloride) 500 mls @ 20 mls/hr IV TITR MNIDI; 1,000 UNIT/HR PRN Reason: Protocol Last Admin: 08/02/17 14:17 Dose: 36 mls/hr Azithromycin 500 mg/ Dextrose 250 mls @ 250 mls/hr IVPB DAILY [facility] Last Admin: 08/02/17 11:55 Dose: 250 mls/hr CEFTRIAXONE 1 G/50 ML PREMIX (Ceftriaxone 1 Gm-D5w Bag) 50 mls @ 100 mls/hr IVPB DAILY [facility] Last Admin: 08/02/17 09:33 Dose: 100 mls/hr Furosemide 100 mg/ Dextrose 100 mls @ 5 mls/hr IVPB TITR MINDI PRN Reason: 5 MG/HR Last Admin: 08/02/17 19:30 Dose: 5 mls/hr Propofol (Diprivan -) 100 mls @ 11.196 mls/hr IVPB TITR MINDI; 10 MCG/KG/MIN PRN Reason: Protocol Last Admin: 08/02/17 14:16 Dose: 11.196 mls/hr Methylprednisolone Sodium Succinate (Solu-Medrol -) 60 mg IVPUSH Q8H-IV [facility] Last Admin: 08/03/17 02:17 Dose: 60 mg Midazolam HCl (Versed -) 2 mg IVPUSH Q4H PRN PRN Reason: AGITATION Last Admin: 08/03/17 02:30 Dose: 2 mg Mupirocin (Bactroban Ointment (For Decolonization) -) 1 applic NS BID [facility] Stop: 08/04/17 21:59 Last Admin: 08/02/17 23:00 Dose: 1 applic Nicotine (Nicoderm Patch -) 7 mg TD DAILY [facility] Last Admin: 08/02/17 09:33 Dose: 7 mg Pantoprazole Sodium (Protonix Iv) 40 mg IVPUSH DAILY [facility] Review of Systems: Unable to Obtain - Objective Vital Signs: Last Vital Signs Temp Pulse Resp BP Pulse Ox 98.2 F 61 20 148/61 97 08/03/17 06:00 08/03/17 06:00 08/03/17 06:30 08/03/17 06:00 08/02/17 22:00 Intake & Output 08/01/17 08/01/17 08/02/17 08/03/17 00:59 23:59 23:59 23:59 Intake Total 1613 1016.6 Output Total 3700 1500 Balance -2087 -483.4 Weight 411 lb 6.121 oz 409 lb Neck: Supple Negative JVD No Bruit Cardiovascular: S1 S2 Regular Rate and Rhythm Respiratory: Diminished Breath Sounds at the Bases Gastrointestinal: Soft Benign Normal Bowel Sounds Ext: Edema Labs: Hepatic Panel Total Bilirubin 0.5 mg/dL (0.2-1.0) 08/01/17 04:00 AST 11 U/L (15-37) L D 08/01/17 04:00 ALT 26 U/L (12-78) D 08/01/17 04:00 Alkaline Phosphatase 66 U/L (45-117) D 08/01/17 04:00 Albumin 2.8 g/dl (3.4-5.0) L 08/01/17 04:00 Blood test from this AM pending Assessment/Plan ASSESSMENT: 1. Acute hypoxemic/hypercapneic respiratory failure, remains intubated, related to 2. Acute exacerbation of chronic obstructive pulmonary disease 3. Obesity/hypoventilation syndrome with 4. Severe pulmonary hypertension with cor pulmonale 5. Probable diastolic LV dysfunction 6. Tobacco abuse PLAN: 1. Continue IV Lasix 2. Continue A/C with Heparin pending further evaluation for possible PTE 3. Add ARBS or ACEI unless it contraindicated, hemodynamics permitting 4. Add CCB/Norvasc with caution, hemodynamics permitting 5. A outlined above consider pulmonary angiogrpahy as an alternative to repeat chest CTA, to be discuss with critical care and interventional radiology Camden Henson M.D.
[2017-08-03 07:39] LABS: MCH 25.4 pg (25.7-33.7); MCHC 31.1 g/dl (32.0-35.9); MEAN CELL VOLUME 81.7 fl (80-96); MEAN PLT VOLUME 7.9 fl (7.5-11.1); PLATELET COUNT 179 K/MM3 (134-434); RDW 17.2 % (11.9-15.9); WHITE BLOOD COUNT 6.7 K/mm3 (4.0-10.0)
[2017-08-03] MEDS: FENTANYL INJECTION 500 MCG in DEXTROSE 5%-WATER - 90 ML IJ SCH (08:52)
[2017-08-03] MEDS ORDERED: PT OWN MED DRAWER 7, Y5N ONE (09:59)
[2017-08-03] MEDS: PROPOFOL 100 ML IVPB SCH (10:04)
[2017-08-03 10:17] LABS: ANION GAP 7 (8-16); CALCIUM 8.1 mg/dL (8.5-10.1); CO2 39 mmol/L (21-32); GLUCOSE,RANDOM 122 mg/dL (74-106); PHOSPHOROUS 4.2 mg/dL (2.5-4.9)
[2017-08-03] MEDS: CEFTRIAXONE 1 G/50 ML PREMIX 50 ML IVPB SCH (10:21)
[2017-08-03] MEDS: MUPIROCIN 2% TOPICAL OINTMENT FOR DECOLONIZATION NS SCH ×2 (10:22→22:52)
[2017-08-03] MEDS: BUDESONIDE/FORMETEROL FUMARATE 160/4.5 mcg INHALER IH SCH (10:22)
[2017-08-03] MEDS: NICOTINE 7 MG/24 HOURS TOPICAL PATCH TD SCH (10:22)
[2017-08-03] MEDS: PANTOPRAZOLE SODIUM 40 MG VIAL IVPUSH SCH (10:22)
[2017-08-03] MEDS: amLODIPine BESYLATE 2.5 MG TABLET (FP) NGT SCH (10:32)
[2017-08-03] MEDS: VALSARTAN 40 MG TABLET (FP) PO SCH (10:32)
[2017-08-03] MEDS: AZITHROMYCIN IVPB 500 MG in DEXTROSE 5%-WATER - 250 ML IVPB SCH (10:57)
[2017-08-03 11:04] LABS: MAGNESIUM 2.5 mg/dL (1.8-2.4)
[2017-08-03] MEDS ORDERED: ALBUTEROL SO4 2.5/IPRATROPIUM 0.5 INH SOL 3 ML VIAL.NEB. NEB STA (11:10)
--- NOTE | 2017-08-03 12:33 | PN ---
Teaching Attending Note Name of Resident: Susan Carter ATTENDING PHYSICIAN STATEMENT I saw and evaluated the patient. I reviewed the resident's note and discussed the case with the resident. I agree with the resident's findings and plan as documented. SUBJECTIVE: Pt seen and examined in the ICU. Vented, awake. Placed on CPAP/PS 5/8 with good weaning parameters, subsequently extubated during rounds with BiPAP standby. Diuresed well with lasix. OBJECTIVE: Last Vital Signs Temp Pulse Resp BP Pulse Ox 98.6 F 86 16 142/87 98 08/03/17 10:00 08/03/17 10:00 08/03/17 10:00 08/03/17 10:00 08/03/17 11:00 Intake & Output 08/01/17 08/01/17 08/02/17 08/03/17 00:59 23:59 23:59 23:59 Intake Total 1613 1016.6 Output Total 3700 1500 Balance -2087 -483.4 Weight 411 lb 6.121 oz 409 lb Gen: extubated, mildly tachypneic at rest Heart: RRR Lung: scattered rhonchi, decreased breath sounds at the bases Abd: soft, obese, nontender Ext: + edema CBC, BMP 08/03/17 05:30 08/03/17 09:00 Active Medications Albuterol Sulfate (Ventolin 0.083% Nebulizer Soln -) 1 amp NEB Q4H PRN PRN Reason: SHORT OF BREATH/WHEEZING Amlodipine Besylate (Norvasc -) 2.5 mg NGT DAILY [facility] Last Admin: 08/03/17 10:32 Dose: 2.5 mg Budesonide/Formoterol Fumarate (Symbicort 160/4.5mcg -) 2 puff IH BID [facility] Last Admin: 08/03/17 10:22 Dose: Not Given Chlorhexidine Gluconate (Hibiclens For Decolonization -) 1 applic TP HS [facility] Last Admin: 08/02/17 22:00 Dose: 1 applic Heparin Sodium (Porcine) (Heparin -) 2,000 unit IVPUSH PRN PRN PRN Reason: Heparin Heparin Sodium (Porcine) (Heparin -) 7,000 unit IVPUSH PRN PRN PRN Reason: Heparin Last Admin: 07/31/17 21:55 Dose: 7,000 unit Heparin Sodium (Porcine) (Heparin -) 5,000 unit SQ BID [facility] Dopamine HCl 400,000 mcg/ (Sodium Chloride) 250 mls @ 14.22 mls/hr IV TITR [facility] ; 2 MCG/KG/MIN PRN Reason: Protocol Last Admin: 08/02/17 22:58 Dose: Not Given Midazolam HCl 100 mg/ Sodium (Chloride) 100 mls @ 1 mls/hr IVPB TITR [facility]; 1 MG/ HR PRN Reason: Protocol Last Admin: 08/02/17 22:25 Dose: Not Given Fentanyl 500 mcg/ Dextrose 100 mls @ 5 mls/hr IJ TITR [facility] PRN Reason: 25 MCG/HR Last Admin: 08/01/17 21:27 Dose: 20 mls/hr Heparin Sodium (Porcine) 25, (000 unit/ Sodium Chloride) 500 mls @ 20 mls/hr IV TITR [facility]; 1,000 UNIT/HR PRN Reason: Protocol Last Titration: 08/03/17 08:50 Dose: 0 unit/hr Azithromycin 500 mg/ Dextrose 250 mls @ 250 mls/hr IVPB DAILY [facility] Last Admin: 08/03/17 10:57 Dose: 250 mls/hr CEFTRIAXONE 1 G/50 ML PREMIX (Ceftriaxone 1 Gm-D5w Bag) 50 mls @ 100 mls/hr IVPB DAILY [facility] Last Admin: 08/03/17 10:21 Dose: 100 mls/hr Furosemide 100 mg/ Dextrose 100 mls @ 5 mls/hr IVPB TITR [facility] PRN Reason: 5 MG/HR Last Admin: 08/02/17 19:30 Dose: 5 mls/hr Propofol (Diprivan -) 100 mls @ 11.196 mls/hr IVPB TITR [facility]; 10 MCG/KG/MIN PRN Reason: Protocol Last Titration: 08/03/17 10:04 Dose: 0 mcg/kg/min Methylprednisolone Sodium Succinate (Solu-Medrol -) 60 mg IVPUSH Q8H-IV [facility] Last Admin: 08/03/17 10:23 Dose: 60 mg Midazolam HCl (Versed -) 2 mg IVPUSH Q4H PRN PRN Reason: AGITATION Last Admin: 08/03/17 02:30 Dose: 2 mg Mupirocin (Bactroban Ointment (For Decolonization) -) 1 applic NS BID [facility] Stop: 08/04/17 21:59 Last Admin: 08/03/17 10:22 Dose: 1 applic Nicotine (Nicoderm Patch -) 7 mg TD DAILY [facility] Last Admin: 08/03/17 10:22 Dose: 7 mg Pantoprazole Sodium (Protonix Iv) 40 mg IVPUSH DAILY [facility] Last Admin: 08/03/17 10:22 Dose: 40 mg Valsartan (Diovan -) 40 mg PO DAILY [facility] Last Admin: 08/03/17 10:32 Dose: 40 mg ASSESSMENT AND PLAN: Acute on Chronic Hypoxic and Hypercapneic Respiratory Failure Acute COPD Exacerbation Morbid Obesity RANJIT/OHS Severe Pulmonary HTN Atelectasis r/o Pneumonia - continue empiric antibiotics - can d/c anticoagulation - inhaled bronchodilators - pt extubated - can taper medrol in AM - lasix gtt per cardiology - monitor urine output, creatinine - enteral feeds - BiPAP at night and PRN during day - DVT/GI prophylaxis - continue ICU monitoring critical care time spent in reviewing chart, evaluating patient and formulating plan 38 min
--- NOTE | 2017-08-03 13:23 | PN ---
Teaching Attending Note Name of Resident: Tera Figueroa ATTENDING PHYSICIAN STATEMENT I saw and evaluated the patient. I reviewed the resident's note and discussed the case with the resident. I agree with the resident's findings and plan as documented. SUBJECTIVE: no events over night . OBJECTIVE: intubated, awake , round equal pupils. looks uncomfortable CV: RRR, no MRG, distant heart sounds Lungs: equal air entry anteriorly over b/l lung khan Ext: 2+ pitting edema on LE. DP 2+ on R. 1+ L Abd: obese, soft, NT, ND , NL BS ASSESSMENT AND PLAN: 52 y/o man with h/o morbid obesity , Childhood asthma and nicotine dependence who presented with SOB x 3 days and was found to have acute hypoxic hypercapnic resp failure 1- Acute hypoxic hypercapnic resp failure. Likely due to acute COPD exacerbation with hypoventilation form body habitus . Pulmonary HTN could be chronic. R sided heart failure , possible L sided heart failure . no evidence of PNA - weaning trials today - cont lasix gtt. Pay attention to renal function. BUN has increased , but he is on steroids - CTA d/wDr. LOPEZ, no PE seen . off hepain gtt now - cont ceftriaxone and azithro empirically day 4 -COnt IV steroids - norvasc and valsartan added . monitor BP 2- HTN: cont ARB and CCB as above 3- Nutrition : cont Glucerna ICU level of care Critical Care Total Critical Care Time (in minutes): 30 Critical Care Statement: The care of this patient involved high complexity decision making to prevent further life threatening deterioration of the patient 's condition and/or to evaluate & treat vital organ system(s) failure or risk of failure.
[2017-08-03] MEDS: HEPARIN NA (PORCINE) 5,000 UNITS/ML 1ML VIAL SQ SCH ×2 (14:17→22:51)
--- NOTE | 2017-08-03 14:55 | PN ---
Physical Exam: SUBJECTIVE: Patient seen and examined at bedside. 24 hr events -Overnight, pt unable to go for CTA. Became extremely hypoxic, tried to pull out ET tube. CT cancelled -Pt was put on propofol, continued on fentanyl gtt -Afebrile, bradycardic ~45bpm Today -Pt successful on CPAP/PS 02/01 ; extubated during rounds this AM -heparin gtt has been d/c -sating well 98% on venti mask 60% FiO2 OBJECTIVE: Vital Signs Period Temp Pulse Resp BP Sys/Melogza Pulse Ox Last 24 Hr 98.2 F-98.6 F 45-105 16-33 116-148/61-91 94-98 GENERAL: The patient is sitting up in bed, awake. Mildly SOB. On venti mask in no acute distress. HEAD: Normal with no signs of trauma. EYES: PERRL, extraocular movements intact, sclera anicteric, conjunctiva clear. NECK: Trachea midline, supple. LUNGS: Breath sounds equal, clear to auscultation bilaterally, no wheezes, no crackles, no accessory muscle use HEART: Regular rate and rhythm, S1, S2 without murmur, rub or gallop. ABDOMEN: Soft, obese nontender, nondistended, normoactive bowel sounds, no guarding, no rebound EXTREMITIES: 1+ pitting edema in lower ext b/l, 2+ dorsalis pedis pulses b/l NEUROLOGICAL: Cranial nerves II through XII grossly intact. Laboratory Results - last 24 hr 08/03/17 08/03/17 08/03/17 05:30 05:30 05:30 WBC 6.7 RBC 5.55 Hgb 14.1 Hct 45.4 MCV 81.7 MCH 25.4 L MCHC 31.1 L RDW 17.2 H Plt Count 179 MPV 7.9 PTT (Actin FS) 103.3 H D Sodium Cancelled Potassium Cancelled Chloride Cancelled Carbon Dioxide Cancelled Anion Gap Cancelled BUN Cancelled Creatinine Cancelled Random Glucose Cancelled Calcium Cancelled Phosphorus Cancelled Magnesium Cancelled 08/03/17 09:00 WBC RBC Hgb Hct MCV MCH MCHC RDW Plt Count MPV PTT (Actin FS) Sodium 145 Potassium 3.8 Chloride 99 Carbon Dioxide 39 H Anion Gap 7 L BUN 26 H Creatinine 1.0 Random Glucose 122 H Calcium 8.1 L Phosphorus 4.2 Magnesium 2.5 H Active Medications Generic Name Dose Route Start Last Admin Trade Name Freq PRN Reason Stop Dose Admin Albuterol Sulfate 1 amp 07/31/17 08:51 Ventolin 0.083% Nebulizer Soln - NEB Q4H PRN SHORT OF BREATH/WHEEZING Amlodipine Besylate 2.5 mg 08/03/17 10:00 08/03/17 10:32 Norvasc - NGT 2.5 mg DAILY [facility] Administration Budesonide/Formoterol Fumarate 2 puff 07/31/17 10:00 08/03/17 10:22 Symbicort 160/4.5mcg - IH Not Given BID [facility] Chlorhexidine Gluconate 1 applic 07/30/17 22:00 08/02/17 22:00 Hibiclens For Decolonization - TP 1 applic HS [facility] Administration Heparin Sodium (Porcine) 5,000 unit 08/03/17 14:00 08/03/17 14:17 Heparin - SQ 5,000 unit TID [facility] Administration Dopamine HCl 400,000 mcg/ 250 mls @ 14.22 mls/hr 07/30/17 20:30 08/02/17 22:58 Sodium Chloride IV Not Given TITR [facility] Protocol 2 MCG/KG/MIN Midazolam HCl 100 mg/ Sodium 100 mls @ 1 mls/hr 07/30/17 23:15 08/02/17 22:25 Chloride IVPB Not Given TITR [facility] Protocol 1 MG/HR Fentanyl 500 mcg/ Dextrose 100 mls @ 5 mls/hr 07/30/17 23:15 08/01/17 21:27 IJ 20 mls/hr TITR [facility] Administration 25 MCG/HR Azithromycin 500 mg/ Dextrose 250 mls @ 250 mls/hr 07/31/17 18:30 08/03/17 10: 57 IVPB 250 mls/hr DAILY [facility] Administration CEFTRIAXONE 1 G/50 ML PREMIX 50 mls @ 100 mls/hr 07/31/17 18:30 08/03/17 10:21 Ceftriaxone 1 Gm-D5w Bag IVPB 100 mls/hr DAILY [facility] Administration Furosemide 100 mg/ Dextrose 100 mls @ 5 mls/hr 08/02/17 05:45 08/02/17 19:30 IVPB 5 mls/hr TITR [facility] Administration 5 MG/HR Propofol 100 mls @ 11.196 mls/hr 08/02/17 11:00 08/03/17 10:04 Diprivan - IVPB 0 mcg/kg/min TITR [facility] Titration Protocol 10 MCG/KG/MIN Methylprednisolone Sodium Succinate 60 mg 08/02/17 18:00 08/03/17 10:23 Solu-Medrol - IVPUSH 60 mg Q8H-IV [facility] Administration Midazolam HCl 2 mg 08/03/17 05:37 08/03/17 02:30 Versed - IVPUSH 2 mg Q4H PRN Administration AGITATION Mupirocin 1 applic 07/30/17 22:00 08/03/17 10:22 Bactroban Ointment (For Decolonization) - NS 08/04/17 21:59 1 applic BID [facility] Administration Nicotine 7 mg 07/31/17 10:00 08/03/17 10:22 Nicoderm Patch - TD 7 mg DAILY [facility] Administration Pantoprazole Sodium 40 mg 08/03/17 10:00 08/03/17 10:22 Protonix Iv IVPUSH 40 mg DAILY [facility] Administration Valsartan 40 mg 08/03/17 10:00 08/03/17 10:32 Diovan - PO 40 mg DAILY [facility] Administration ASSESSMENT/PLAN: 52 y/o M with PMH of urinary incontinence, chronic knee pain and mild asthma, who presented to the ED due to worsening SOB, right ear pain, b/l eye discharge , and runny nose x 5 days. On presentation to the ED, patient was in hypoxic hypercarbic respiratory failure with an O2 sat 82% on RA, with diffuse facial edema/erythema. 2/2 acute COPD exacerbation or obesity hypoventilation syndrome PULM #hypoxic hypercarbic respiratory failure 2/2 to acute COPD exacerbation or obesity hypoventilation syndrome -pulm HTN, cor pulmonale -pt extubated, currently on 60% FiO2 venti mask, sat well at 98% -IV solumedrol 50mg IV changed to q8h (from q6h) - will continue to taper -continue lasix gtt, diuresing well -continue Ventolin 1 amp q4h PRN -Duonebs 1 amp q4h standing -BiPAP PRN -F/u CXR tomorrow -F/u ABG tomorrow #r/o PE- resolved -initial CTA inconclusive, no PE evident- even if small, would not cause such drastic sx -heparin gtt has been d/c ID #Pulm prophylaxis -Continue azithromycin 500mg, ceftriaxone 1g (Today is Day4) -Will continue to follow ID recs NEURO -AAOx3 -pt extubated, on venti mask CARDIO #HTN- uncontrolled 2/2 pain, discomfort -started on Valsartan 50mg qd, norvasc 2.5mg qd RENAL -UO 4.6 L today, diuresing well -will continue to follow BUN/Cr; 22/10 -may be 2/2 steroids PROPHYLAXIS -DVT: started back on Heparin 5000 U SQ TID -GI: Protonix 40 mg IVP qd F/E/N -Will continue to monitor electrolytes -Glucerna 1.5 tube feeds have been restarted Disposition Continued management in ICU, however condition improving as pt is extubated Visit type - Emergency Visit Emergency Visit: No - New Patient This patient is new to me today: No - Critical Care Critical Care patient: Yes Total Critical Care Time (in minutes): 42 Critical Care Statement: The care of this patient involved high complexity decision making to prevent further life threatening deterioration of the patient 's condition and/or to evaluate & treat vital organ system(s) failure or risk of failure.
[2017-08-03] MEDS ORDERED: ACETAMINOPHEN 1000 MG/100 ML VIAL (NON FORMULARY) IVPB ONE (16:28)
--- NOTE | 2017-08-03 21:22 | PN ---
Physical Exam: SUBJECTIVE: Pt intubated and sedated, but arousable. HPI limited to clinical condition. OBJECTIVE: Vital Signs Period Temp Pulse Resp BP Sys/Melgoza Pulse Ox Last 24 Hr 98.2 F-98.8 F 45-105 16-33 116-151/61-96 90-98 GENERAL: I&S. arousable to touch HEENT: NIDHI, ET in place, feeding tube noted, R IJ line C/D/I LUNGS: CTA anteriorly with good air entry, no wheezes, rhonchi, rales HEART: RRR, distant heart sounds, S1, S2 without murmur noted ABDOMEN: Soft, obese, nondistended, hypoactive bowel sounds, tenderness could not be assessed EXTREMITIES: 2+ pitting edema to knee, 2+ DP pulses NEUROLOGICAL: Pt intubated and sedated. Laboratory Results - last 24 hr 08/03/17 08/03/17 08/03/17 05:30 05:30 05:30 WBC 6.7 RBC 5.55 Hgb 14.1 Hct 45.4 MCV 81.7 MCH 25.4 L MCHC 31.1 L RDW 17.2 H Plt Count 179 MPV 7.9 PTT (Actin FS) 103.3 H D Sodium Cancelled Potassium Cancelled Chloride Cancelled Carbon Dioxide Cancelled Anion Gap Cancelled BUN Cancelled Creatinine Cancelled Random Glucose Cancelled Calcium Cancelled Phosphorus Cancelled Magnesium Cancelled 08/03/17 09:00 WBC RBC Hgb Hct MCV MCH MCHC RDW Plt Count MPV PTT (Actin FS) Sodium 145 Potassium 3.8 Chloride 99 Carbon Dioxide 39 H Anion Gap 7 L BUN 26 H Creatinine 1.0 Random Glucose 122 H Calcium 8.1 L Phosphorus 4.2 Magnesium 2.5 H Active Medications Generic Name Dose Route Start Last Admin Trade Name Freq PRN Reason Stop Dose Admin Albuterol Sulfate 1 amp 07/31/17 08:51 Ventolin 0.083% Nebulizer Soln - NEB Q4H PRN SHORT OF BREATH/WHEEZING Amlodipine Besylate 2.5 mg 08/03/17 10:00 08/03/17 10:32 Norvasc - NGT 2.5 mg DAILY [facility] Administration Budesonide/Formoterol Fumarate 2 puff 07/31/17 10:00 08/03/17 10:22 Symbicort 160/4.5mcg - IH Not Given BID [facility] Chlorhexidine Gluconate 1 applic 07/30/17 22:00 08/02/17 22:00 Hibiclens For Decolonization - TP 1 applic HS [facility] Administration Heparin Sodium (Porcine) 5,000 unit 08/03/17 14:00 08/03/17 14:17 Heparin - SQ 5,000 unit TID [facility] Administration Furosemide 100 mg/ Dextrose 100 mls @ 5 mls/hr 08/02/17 05:45 08/02/17 19:30 IVPB 5 mls/hr TITR [facility] Administration 5 MG/HR Methylprednisolone Sodium Succinate 60 mg 08/02/17 18:00 08/03/17 18:04 Solu-Medrol - IVPUSH 60 mg Q8H-IV [facility] Administration Midazolam HCl 2 mg 08/03/17 05:37 08/03/17 02:30 Versed - IVPUSH 2 mg Q4H PRN Administration AGITATION Mupirocin 1 applic 07/30/17 22:00 08/03/17 10:22 Bactroban Ointment (For Decolonization) - NS 08/04/17 21:59 1 applic BID [facility] Administration Nicotine 7 mg 07/31/17 10:00 08/03/17 10:22 Nicoderm Patch - TD 7 mg DAILY [facility] Administration Pantoprazole Sodium 40 mg 08/03/17 10:00 08/03/17 10:22 Protonix Iv IVPUSH 40 mg DAILY [facility] Administration Valsartan 40 mg 08/03/17 10:00 08/03/17 10:32 Diovan - PO 40 mg DAILY [facility] Administration ASSESSMENT/PLAN: 1) Acute hypoxic hypercapnic respiratory failure --2/2 to acute COPD exacerbation --D-Dimer 695, CTA imaging noted; d/w Dr. Quintero who does not see a PE --Can d/c heparin gtt --Duonebs continued --Continue solumedrol 60mg q6 on board --Pt started on empiric antibiotics day 4; ceftriazone and zithromax --Weaning trials off of AC mode of vent --Continue lasix gtt 2) HTN --Start norvasc and valsartan FEN: Electrolyte abnormalities: None Nutrition: Glucerna tube feeds PPX DVT - Currently on heparin gtt Dispo: Continue ICU monitoring; continue ventilator CCTime: 35 minutes Case discussed with Dr. Petra Figueroa, DO - Internal Medicine PGY-1 Visit type - Emergency Visit Emergency Visit: No - New Patient This patient is new to me today: No - Critical Care Critical Care patient: No
[2017-08-03] MEDS ORDERED: HEPARIN NA (PORCINE) 5,000 UNITS/ML 1ML VIAL SQ SCH (22:00)
[2017-08-03] MEDS: CHLORHEXIDINE GLUCONATE 4% CLEANSER FOR DECOLONIZATION TP SCH (22:51)
[2017-08-03] MEDS: FUROSEMIDE INJECTION 100 MG in DEXTROSE 5%-WATER - 90 ML IVPB SCH (22:51)
[2017-08-04] MEDS: methylPREDNISolone NA SUCC 40 MG/1 ML VIAL IVPUSH SCH ×2 (01:07→09:29)
[2017-08-04 07:28] LABS: ANION GAP 4 (8-16); CALCIUM 7.7 mg/dL (8.5-10.1); CO2 43 mmol/L (21-32); CREATININE 0.7 mg/dL (0.7-1.3); GLUCOSE,RANDOM 101 mg/dL (74-106)
[2017-08-04 07:40] LABS: MCH 25.3 pg (25.7-33.7); MCHC 30.6 g/dl (32.0-35.9); MEAN CELL VOLUME 82.8 fl (80-96); MEAN PLT VOLUME 7.8 fl (7.5-11.1); PLATELET COUNT 151 K/MM3 (134-434); WHITE BLOOD COUNT 10.5 K/mm3 (4.0-10.0)
[2017-08-04 07:53] LABS: ARTERIAL BLD GAS O2 SATURATION 91.5 % (90-98.9); ARTERIAL BLOOD GAS HCO3 46.3 meq/L (22-26); ARTERIAL BLOOD GAS pH 7.36 (7.35-7.45)
[2017-08-04 07:55] LABS: ALLENS TEST POSITIVE; ART PUNCT SITE LEFT RADIAL; PT. ON O2? YES
[2017-08-04 07:56] LABS: LPM/O2% 40; TYPE OF O2 VENTURI MAST
[2017-08-04] MEDS ORDERED: PT OWN MED DRAWER 7, Y5N ONE (09:22)
[2017-08-04] MEDS: BUDESONIDE/FORMETEROL FUMARATE 160/4.5 mcg INHALER IH SCH ×2 (09:27→21:27)
[2017-08-04] MEDS: VALSARTAN 40 MG TABLET (FP) PO SCH (09:28)
[2017-08-04] MEDS: MUPIROCIN 2% TOPICAL OINTMENT FOR DECOLONIZATION NS SCH (09:28)
[2017-08-04] MEDS: amLODIPine BESYLATE 2.5 MG TABLET (FP) NGT SCH (09:28)
[2017-08-04] MEDS: NICOTINE 7 MG/24 HOURS TOPICAL PATCH TD SCH (09:28)
[2017-08-04] MEDS: PANTOPRAZOLE SODIUM 40 MG VIAL IVPUSH SCH (09:29)
--- NOTE | 2017-08-04 11:09 | PN ---
Progress Note, SENIOR CLINICIAN - Note Progress Note: 52 y/o man with h/o morbid obesity , Childhood asthma and nicotine dependence who presented with SOB x 3 days and was found to have acute hypoxic hypercapnic resp failure Acute hypoxic hypercapnic resp failure. Likely due to acute COPD exacerbation with hypoventilation form body habitus . Pulmonary HTN could be chronic. R sided heart failure , possible L sided heart failure . no evidence of PNA Extubated yesterday but was on BIPAP. Case reviewed with staff.Evaluation deferred until today. Pt is alert, on VM with o2 sat at 90%. Excellent vocal quality and volume. 0 x 3. Swallow is brisk with no overt symptoms of dysphagia with PO trials. Rec; Reg diet,thin liquids as tolerated. Monitor for tolerance.
[2017-08-04] MEDS ORDERED: ACETAMINOPHEN 1000 MG/100 ML VIAL (NON FORMULARY) IVPB PRN (11:57)
--- NOTE | 2017-08-04 12:00 | PN ---
Teaching Attending Note Name of Resident: Susan Carter ATTENDING PHYSICIAN STATEMENT I saw and evaluated the patient. I reviewed the resident's note and discussed the case with the resident. I agree with the resident's findings and plan as documented. SUBJECTIVE: Pt seen and examined in the ICU. Extubated yesterday, placed on BiPAP overnight. States breathing continues to improve. Complains of knee pain. Remains on lasix gtt with good diuresis. OBJECTIVE: Last Vital Signs Temp Pulse Resp BP Pulse Ox 98.5 F 68 21 157/93 95 08/04/17 10:00 08/04/17 10:00 08/04/17 10:00 08/04/17 10:00 08/04/17 09:00 Intake & Output 08/01/17 08/02/17 08/03/17 08/04/17 23:59 23:59 23:59 23:59 Intake Total 1613 1791.6 60 Output Total 3700 3800 2500 Balance -7 -2007.4 -2440 Weight 411 lb 6.121 oz 409 lb Gen: mildly tachypneic with speaking Heart: RRR Lung: distant breath sounds Abd: soft, obese, nontender Ext: + edema CBC, BMP 08/04/17 07:20 08/04/17 06:00 Active Medications Acetaminophen (Ofirmev Injection -) 1,000 mg IVPB Q6H PRN PRN Reason: FEVER OR PAIN Albuterol Sulfate (Ventolin 0.083% Nebulizer Soln -) 1 amp NEB Q4H PRN PRN Reason: SHORT OF BREATH/WHEEZING Amlodipine Besylate (Norvasc -) 2.5 mg NGT DAILY [facility] Last Admin: 08/03/17 10:32 Dose: 2.5 mg Budesonide/Formoterol Fumarate (Symbicort 160/4.5mcg -) 2 puff IH BID [facility] Last Admin: 08/04/17 09:27 Dose: 2 puff Chlorhexidine Gluconate (Hibiclens For Decolonization -) 1 applic TP HS [facility] Last Admin: 08/03/17 22:51 Dose: 1 applic Heparin Sodium (Porcine) (Heparin -) 5,000 unit SQ TID [facility] Last Admin: 08/03/17 22:51 Dose: 5,000 unit Furosemide 100 mg/ Dextrose 100 mls @ 5 mls/hr IVPB TITR [facility] PRN Reason: 5 MG/HR Last Admin: 08/03/17 22:51 Dose: 5 mg/hr, 5 mls/hr Methylprednisolone Sodium Succinate (Solu-Medrol -) 60 mg IVPUSH Q8H-IV [facility] Last Admin: 08/04/17 09:29 Dose: 60 mg Midazolam HCl (Versed -) 2 mg IVPUSH Q4H PRN PRN Reason: AGITATION Last Admin: 08/03/17 02:30 Dose: 2 mg Mupirocin (Bactroban Ointment (For Decolonization) -) 1 applic NS BID [facility] Stop: 08/04/17 21:59 Last Admin: 08/03/17 22:52 Dose: 1 applic Nicotine (Nicoderm Patch -) 7 mg TD DAILY [facility] Last Admin: 08/03/17 10:22 Dose: 7 mg Pantoprazole Sodium (Protonix Iv) 40 mg IVPUSH DAILY [facility] Last Admin: 08/03/17 10:22 Dose: 40 mg Valsartan (Diovan -) 40 mg PO DAILY [facility] Last Admin: 08/03/17 10:32 Dose: 40 mg ASSESSMENT AND PLAN: Acute on Chronic Hypoxic and Hypercapneic Respiratory Failure Acute COPD Exacerbation Morbid Obesity RANJIT/OHS Severe Pulmonary HTN Atelectasis r/o Pneumonia - completed empiric antibiotics - anticoagulation d/c'd - inhaled bronchodilators - can taper medrol to q12h - lasix gtt per cardiology - monitor urine output, creatinine - PO as tolerated - BiPAP at night and PRN during day - DVT/GI prophylaxis - continue ICU monitoring critical care time spent in reviewing chart, evaluating patient and formulating plan 38 min
--- NOTE | 2017-08-04 13:03 | PN ---
Progress Note, Physician History of Present Illness: Comfortable on NC, diuresing well. - Current Medication List Current Medications: Active Medications Acetaminophen (Ofirmev Injection -) 1,000 mg IVPB Q6H PRN PRN Reason: FEVER OR PAIN Last Admin: 08/04/17 12:21 Dose: 1,000 mg Albuterol Sulfate (Ventolin 0.083% Nebulizer Soln -) 1 amp NEB Q4H PRN PRN Reason: SHORT OF BREATH/WHEEZING Amlodipine Besylate (Norvasc -) 2.5 mg NGT DAILY [facility] Last Admin: 08/03/17 10:32 Dose: 2.5 mg Budesonide/Formoterol Fumarate (Symbicort 160/4.5mcg -) 2 puff IH BID [facility] Last Admin: 08/04/17 09:27 Dose: 2 puff Chlorhexidine Gluconate (Hibiclens For Decolonization -) 1 applic TP HS [facility] Last Admin: 08/03/17 22:51 Dose: 1 applic Heparin Sodium (Porcine) (Heparin -) 5,000 unit SQ TID [facility] Last Admin: 08/03/17 22:51 Dose: 5,000 unit Furosemide 100 mg/ Dextrose 100 mls @ 5 mls/hr IVPB TITR [facility] PRN Reason: 5 MG/HR Last Admin: 08/03/17 22:51 Dose: 5 mg/hr, 5 mls/hr Methylprednisolone Sodium Succinate (Solu-Medrol -) 60 mg IVPUSH Q8H-IV [facility] Last Admin: 08/04/17 09:29 Dose: 60 mg Midazolam HCl (Versed -) 2 mg IVPUSH Q4H PRN PRN Reason: AGITATION Last Admin: 08/03/17 02:30 Dose: 2 mg Mupirocin (Bactroban Ointment (For Decolonization) -) 1 applic NS BID [facility] Stop: 08/04/17 21:59 Last Admin: 08/03/17 22:52 Dose: 1 applic Nicotine (Nicoderm Patch -) 7 mg TD DAILY [facility] Last Admin: 08/03/17 10:22 Dose: 7 mg Pantoprazole Sodium (Protonix Iv) 40 mg IVPUSH DAILY [facility] Last Admin: 08/03/17 10:22 Dose: 40 mg Valsartan (Diovan -) 40 mg PO DAILY [facility] Last Admin: 08/03/17 10:32 Dose: 40 mg - Objective Vital Signs: Vital Signs Temperature 98.5 F 08/04/17 10:00 Pulse Rate 68 08/04/17 10:00 Respiratory Rate 21 08/04/17 10:00 Blood Pressure 157/93 08/04/17 10:00 O2 Sat by Pulse Oximetry (%) 95 08/04/17 09:00 Constitutional: Yes: No Distress, Calm Neck: Yes: Supple Cardiovascular: Yes: Regular Rate and Rhythm Respiratory: Yes: Regular, Diminished, On Nasal O2 Gastrointestinal: Yes: Normal Bowel Sounds, Soft, Abdomen, Obese Edema: Yes Edema: LLE: 1+, RLE: 1+ Labs: CBC, BMP 08/04/17 07:20 08/04/17 06:00 INR, PTT INR 1.17 (0.82-1.09) H 08/01/17 04:00 Problem List - Problems (1) Sleep apnea Code(s): G47.30 - SLEEP APNEA, UNSPECIFIED Qualifiers: Sleep apnea type: obstructive Qualified Code(s): G47.33 - Obstructive sleep apnea (adult) (pediatric) (2) Morbid obesity Code(s): E66.01 - MORBID (SEVERE) OBESITY DUE TO EXCESS CALORIES (3) COPD exacerbation Code(s): J44.1 - CHRONIC OBSTRUCTIVE PULMONARY DISEASE W (ACUTE) EXACERBATION (4) Asthma Code(s): J45.909 - UNSPECIFIED ASTHMA, UNCOMPLICATED Qualifiers: Asthma severity: unspecified severity (5) Acute on chronic respiratory failure with hypoxia and hypercapnia Code(s): J96.21 - ACUTE AND CHRONIC RESPIRATORY FAILURE WITH HYPOXIA; J96.22 - ACUTE AND CHRONIC RESPIRATORY FAILURE WITH HYPERCAPNIA (6) Pulmonary HTN Code(s): I27.20 - PULMONARY HYPERTENSION, UNSPECIFIED (7) Cor pulmonale Code(s): I27.81 - COR PULMONALE (CHRONIC) (8) Diastolic dysfunction Code(s): I51.9 - HEART DISEASE, UNSPECIFIED Assessment/Plan 07/30/2017 Echo: with severe dilation of R sided heart with Mod TR and severe pulm HTN ASSESSMENT: 1. Post acute on hypoxemic/hypercapneic respiratory failure 2. Acute COPD exacerbation 3. Obesity/hypoventilation syndrome 4. Severe pulm HTN with cor pulmonale 5. Morbid obesity 6. OSAS suspect 7. Probable diastolic LV dysfunction 8. Tobacco abuse PLAN: 1. BD, wean FIO2 as tolerated, IV steroid taper with GI protection 2. Change Lasix gtt to Lasix 40 IV bid with monitor electrolytes and renal fxn 3. Continue Norvasc 2.5 qd and increase Diovan 80 qd, add Aldactone 25 qd 4. DVT and GI prophylaxis 5. PSG as outpatient, smoking cessation, RHC to confirm severe pulm HTN
[2017-08-04] MEDS ORDERED: VALSARTAN 80 MG TABLET (UD) PO SCH (13:18)
[2017-08-04] MEDS: HEPARIN NA (PORCINE) 5,000 UNITS/ML 1ML VIAL SQ SCH ×3 (14:03→21:26)
[2017-08-04] MEDS: FUROSEMIDE 40 MG/4 ML INJECTABLE VIAL IVPUSH SCH (14:03)
[2017-08-04] MEDS: SPIRONOLACTONE 25 MG TABLET (FP) PO SCH (14:03)
--- NOTE | 2017-08-04 15:42 | PN ---
Physical Exam: SUBJECTIVE: Patient seen and examined at bedside. 24 hr events -Pt on BiPAP for most of night. This AM alternated with 40% Fi02 venti mask -afebrile, sat well at 95% Today -complains of LLE pain that is most likely chronic 2/2 fall in past -Denies headache, fever, chills, SOB, or chest pain -Diet advanced to regular with thin liquids, as per speech and swallow -For potential transfer to floor tomorrow, if continues to improve OBJECTIVE: Vital Signs Period Temp Pulse Resp BP Sys/Melgoza Pulse Ox Last 24 Hr 98.2 F-99.1 F 64-105 20-28 139-169/74-99 90-97 GENERAL: The patient is sitting up, awake, alert, and fully oriented, in no acute distress. HEAD: Normal with no signs of trauma. EYES: PERRL, extraocular movements intact, sclera anicteric, conjunctiva clear. NECK: Trachea midline, full range of motion, supple. LUNGS: distant breath sounds d/t body habitus. Otherwise no wheezes, crackles or rhonchi appreciated HEART: Regular rate and rhythm, S1, S2 without murmur, rub or gallop. ABDOMEN: Soft, obese, nontender, nondistended, normoactive bowel sounds EXTREMITIES: 2+ posterior tibial pulses, warm, well-perfused, 1+ nonpitting edema b/l NEUROLOGICAL: Cranial nerves II through XII grossly intact. Laboratory Results - last 24 hr 08/04/17 08/04/17 08/04/17 06:00 07:20 07:20 WBC 10.5 H D RBC 5.70 H Hgb 14.4 Hct 47.2 MCV 82.8 MCH 25.3 L MCHC 30.6 L RDW 17.0 H Plt Count 151 MPV 7.8 PTT (Actin FS) 29.8 D Puncture Site ABG pH ABG pCO2 at Pt Temp ABG pO2 at Pt Temp ABG HCO3 ABG O2 Sat (Measured) ABG O2 Content ABG Base Excess Neto Test O2 Delivery Device Oxygen Flow Rate Sodium 143 Potassium 3.5 Chloride 96 L Carbon Dioxide 43 H Anion Gap 4 L BUN 23 H Creatinine 0.7 D Random Glucose 101 Calcium 7.7 L 08/04/17 07:20 WBC RBC Hgb Hct MCV MCH MCHC RDW Plt Count MPV PTT (Actin FS) Puncture Site Left radial ABG pH 7.36 ABG pCO2 at Pt Temp 85.0 H* D ABG pO2 at Pt Temp 65.0 L ABG HCO3 46.3 H* ABG O2 Sat (Measured) 91.5 ABG O2 Content 18.7 ABG Base Excess 16.0 H* Neto Test Positive O2 Delivery Device Venturi mast Oxygen Flow Rate 40 Sodium Potassium Chloride Carbon Dioxide Anion Gap BUN Creatinine Random Glucose Calcium Active Medications Generic Name Dose Route Start Last Admin Trade Name Freq PRN Reason Stop Dose Admin Acetaminophen 1,000 mg 08/04/17 11:57 08/04/17 12:21 Ofirmev Injection - IVPB 1,000 mg Q6H PRN Administration FEVER OR PAIN Albuterol Sulfate 1 amp 07/31/17 08:51 Ventolin 0.083% Nebulizer Soln - NEB Q4H PRN SHORT OF BREATH/WHEEZING Amlodipine Besylate 2.5 mg 08/03/17 10:00 08/03/17 10:32 Norvasc - NGT 2.5 mg DAILY MINDI Administration Budesonide/Formoterol Fumarate 2 puff 07/31/17 10:00 08/04/17 09:27 Symbicort 160/4.5mcg - IH 2 puff BID MINDI Administration Chlorhexidine Gluconate 1 applic 07/30/17 22:00 08/03/17 22:51 Hibiclens For Decolonization - TP 1 applic HS MINDI Administration Furosemide 40 mg 08/04/17 14:00 08/04/17 14:03 Lasix Injection - IVPUSH 40 mg BID@0600,1400 MINDI Administration Heparin Sodium (Porcine) 5,000 unit 08/03/17 14:00 08/04/17 15:33 Heparin - SQ Not Given TID MINDI Methylprednisolone Sodium Succinate 60 mg 08/04/17 15:45 Solu-Medrol - IVPUSH BID MINDI Midazolam HCl 2 mg 08/03/17 05:37 08/03/17 02:30 Versed - IVPUSH 2 mg Q4H PRN Administration AGITATION Mupirocin 1 applic 07/30/17 22:00 08/03/17 22:52 Bactroban Ointment (For Decolonization) - NS 08/04/17 21:59 1 applic BID MINDI Administration Nicotine 7 mg 07/31/17 10:00 08/03/17 10:22 Nicoderm Patch - TD 7 mg DAILY MINDI Administration Pantoprazole Sodium 40 mg 08/03/17 10:00 08/03/17 10:22 Protonix Iv IVPUSH 40 mg DAILY MINDI Administration Spironolactone 25 mg 08/04/17 13:30 08/04/17 14:03 Aldactone - PO 25 mg DAILY MINDI Administration Valsartan 80 mg 08/04/17 13:18 Diovan - PO DAILY MINDI ASSESSMENT/PLAN: 52 y/o M with PMH of urinary incontinence, chronic knee pain and mild asthma, who presented to the ED due to worsening SOB, right ear pain, b/l eye discharge , and runny nose x 5 days. On presentation to the ED, patient was in hypoxic hypercarbic respiratory failure with an O2 sat 82% on RA, with diffuse facial edema/erythema. 2/2 acute COPD exacerbation or obesity hypoventilation syndrome PULM #hypoxic hypercarbic respiratory failure 2/2 to acute COPD exacerbation or obesity hypoventilation syndrome -pulm HTN, cor pulmonale -pt extubated, currently alternating between 40% FiO2 venti mask and BiPAP -IV solumedrol 50mg IV changed to q12h (from q8h) - will continue to taper -lasix gtt d/c, now on lasix IVP 40mg BID -continue Ventolin 1 amp q4h PRN -Duonebs 1 amp q4h standing -BiPAP PRN -F/u CXR tomorrow -F/u ABG tomorrow #r/o PE- resolved -initial CTA inconclusive, no PE evident- even if small, would not cause such drastic sx -heparin gtt has been d/c ID #Pulm prophylaxis -Continue azithromycin 500mg, ceftriaxone 1g (Today is Day5) -Will continue to follow ID recs NEURO -AAOx3 -pt extubated, on venti mask CARDIO #HTN- uncontrolled 2/2 pain, discomfort -Continue Norvasc 2.5 mg qd -Diovan 80mg qd -Aldactone 25mg qd RENAL -diuresing well -will continue to follow BUN/Cr; 23/0.7 -may be 2/2 steroids -F/u BMP PROPHYLAXIS -DVT: started back on Heparin 5000 U SQ TID -GI: Protonix 40 mg IVP qd F/E/N -Will continue to monitor electrolytes -Glucerna 1.5 tube feeds have been restarted Disposition cont'd management in ICU, however if condition continues to improve, for transfer to floor Visit type - Emergency Visit Emergency Visit: No - New Patient This patient is new to me today: No - Critical Care Critical Care patient: Yes Total Critical Care Time (in minutes): 42 Critical Care Statement: The care of this patient involved high complexity decision making to prevent further life threatening deterioration of the patient 's condition and/or to evaluate & treat vital organ system(s) failure or risk of failure.
--- NOTE | 2017-08-04 15:50 | PN ---
Physical Exam: SUBJECTIVE: Pt extubated with reports of slightly raspy voice. Otherwise pt denies SOB and CP/discomfort. OBJECTIVE: Vital Signs Period Temp Pulse Resp BP Sys/Melgoza Pulse Ox Last 24 Hr 98.2 F-99.1 F 64-105 20-28 139-169/74-99 90-97 GENERAL: NAD, bed elevated, pt currently on BiPap machine HEENT: EOMI, NIDHI, no JVD noted, R IJ central line noted currently with area C/ D/I LUNGS: Slight bibasilar rales noted. Air entry intermediate. HEART: RRR, S1, S2 without murmur, rub or gallop. ABDOMEN: Soft, obese, nontender, nondistended, normoactive bowel sounds, no guarding EXTREMITIES: 2+ pitting edema to mid-lower leg. 2+ DP pulses bilaterally NEUROLOGICAL: Alert and orientedx3. Nonfocal SKIN: Warm, dry, no rashes or lesions noted Laboratory Results - last 24 hr 08/04/17 08/04/17 08/04/17 06:00 07:20 07:20 WBC 10.5 H D RBC 5.70 H Hgb 14.4 Hct 47.2 MCV 82.8 MCH 25.3 L MCHC 30.6 L RDW 17.0 H Plt Count 151 MPV 7.8 PTT (Actin FS) 29.8 D Puncture Site ABG pH ABG pCO2 at Pt Temp ABG pO2 at Pt Temp ABG HCO3 ABG O2 Sat (Measured) ABG O2 Content ABG Base Excess Neto Test O2 Delivery Device Oxygen Flow Rate Sodium 143 Potassium 3.5 Chloride 96 L Carbon Dioxide 43 H Anion Gap 4 L BUN 23 H Creatinine 0.7 D Random Glucose 101 Calcium 7.7 L 08/04/17 07:20 WBC RBC Hgb Hct MCV MCH MCHC RDW Plt Count MPV PTT (Actin FS) Puncture Site Left radial ABG pH 7.36 ABG pCO2 at Pt Temp 85.0 H* D ABG pO2 at Pt Temp 65.0 L ABG HCO3 46.3 H* ABG O2 Sat (Measured) 91.5 ABG O2 Content 18.7 ABG Base Excess 16.0 H* Neto Test Positive O2 Delivery Device Venturi mast Oxygen Flow Rate 40 Sodium Potassium Chloride Carbon Dioxide Anion Gap BUN Creatinine Random Glucose Calcium Active Medications Generic Name Dose Route Start Last Admin Trade Name Freq PRN Reason Stop Dose Admin Acetaminophen 1,000 mg 08/04/17 11:57 08/04/17 12:21 Ofirmev Injection - IVPB 1,000 mg Q6H PRN Administration FEVER OR PAIN Albuterol Sulfate 1 amp 07/31/17 08:51 Ventolin 0.083% Nebulizer Soln - NEB Q4H PRN SHORT OF BREATH/WHEEZING Amlodipine Besylate 2.5 mg 08/03/17 10:00 08/03/17 10:32 Norvasc - NGT 2.5 mg DAILY MINDI Administration Budesonide/Formoterol Fumarate 2 puff 07/31/17 10:00 08/04/17 09:27 Symbicort 160/4.5mcg - IH 2 puff BID MINDI Administration Chlorhexidine Gluconate 1 applic 07/30/17 22:00 08/03/17 22:51 Hibiclens For Decolonization - TP 1 applic HS MINDI Administration Furosemide 40 mg 08/04/17 14:00 08/04/17 14:03 Lasix Injection - IVPUSH 40 mg BID@0600,1400 MINDI Administration Heparin Sodium (Porcine) 5,000 unit 08/03/17 14:00 08/04/17 15:33 Heparin - SQ Not Given TID [facility] Methylprednisolone Sodium Succinate 60 mg 08/04/17 15:45 Solu-Medrol - IVPUSH BID [facility] Midazolam HCl 2 mg 08/03/17 05:37 08/03/17 02:30 Versed - IVPUSH 2 mg Q4H PRN Administration AGITATION Mupirocin 1 applic 07/30/17 22:00 08/03/17 22:52 Bactroban Ointment (For Decolonization) - NS 08/04/17 21:59 1 applic BID MINDI Administration Nicotine 7 mg 07/31/17 10:00 08/03/17 10:22 Nicoderm Patch - TD 7 mg DAILY MINDI Administration Pantoprazole Sodium 40 mg 08/03/17 10:00 08/03/17 10:22 Protonix Iv IVPUSH 40 mg DAILY MINDI Administration Spironolactone 25 mg 08/04/17 13:30 08/04/17 14:03 Aldactone - PO 25 mg DAILY MINDI Administration Valsartan 80 mg 08/04/17 13:18 Diovan - PO DAILY MINDI ASSESSMENT/PLAN: 1) Hypercapnic hypoxic respiratory failure --2/2 acute COPD exacerbation and hypoventilation vs. acute congestive heart dysfunction --improved --Continue BiPap alternating with VM --Titrate SpO2 >90% (currently on NC5L) --Solumedrol 50mg q12h; continue to wean --Continue Lasix gtt --Symbicort to continue --Antibiotics day 5 2) HTN --Norvasc 2.5mg qdaily --Diovan 80mg qDaily --Monitor BP --Lasix as above; Aldactone 25mg qDaily FEN: Fluids: Avoid IVF Nutrition: NPO; speech and swallow evaluation PPX: DVT - Resume Heparin 5000U SQ TID GI - Protonix 40mg IVP qdaily Dispo: ICU; possibility of transfer tomorrow AM Case discussed with Dr. Freddie Figueroa, DO - Internal Medicine PGY-1 Visit type - Emergency Visit Emergency Visit: No - New Patient This patient is new to me today: No - Critical Care Critical Care patient: No
[2017-08-04] MEDS: methylPREDNISolone NA SUCC 125 MG/2 ML VIAL IVPUSH SCH ×2 (16:39→21:25)
--- NOTE | 2017-08-04 19:30 | PN ---
Teaching Attending Note Name of Resident: Tera Figueroa ATTENDING PHYSICIAN STATEMENT I saw and evaluated the patient. I reviewed the resident's note and discussed the case with the resident. I agree with the resident's findings and plan as documented. SUBJECTIVE: Patient is in ICU, extubated, better today . No fever or chills, no shortness of breath. OBJECTIVE: Vital Signs Temperature 98.6 F 08/04/17 18:00 Pulse Rate 94 H 08/04/17 18:00 Respiratory Rate 24 08/04/17 18:00 Blood Pressure 136/80 08/04/17 18:00 O2 Sat by Pulse Oximetry (%) 95 08/04/17 09:00 CBCD WBC 10.5 K/mm3 (4.0-10.0) H D 08/04/17 07:20 RBC 5.70 M/mm3 (4.00-5.60) H 08/04/17 07:20 Hgb 14.4 GM/dL (11.7-16.9) 08/04/17 07:20 Hct 47.2 % (35.4-49) 08/04/17 07:20 MCV 82.8 fl (80-96) 08/04/17 07:20 MCHC 30.6 g/dl (32.0-35.9) L 08/04/17 07:20 RDW 17.0 % (11.9-15.9) H 08/04/17 07:20 Plt Count 151 K/MM3 (134-434) 08/04/17 07:20 MPV 7.8 fl (7.5-11.1) 08/04/17 07:20 CMP Sodium 143 mmol/L (136-145) 08/04/17 06:00 Potassium 3.5 mmol/L (3.5-5.1) 08/04/17 06:00 Chloride 96 mmol/L (98-107) L 08/04/17 06:00 Carbon Dioxide 43 mmol/L (21-32) H 08/04/17 06:00 Anion Gap 4 (8-16) L 08/04/17 06:00 BUN 23 mg/dL (7-18) H 08/04/17 06:00 Creatinine 0.7 mg/dL (0.7-1.3) D 08/04/17 06:00 Creat Clearance w eGFR > 60 (>60) 08/01/17 04:00 Random Glucose 101 mg/dL (74-106) 08/04/17 06:00 Calcium 7.7 mg/dL (8.5-10.1) L 08/04/17 06:00 Total Bilirubin 0.5 mg/dL (0.2-1.0) 08/01/17 04:00 AST 11 U/L (15-37) L D 08/01/17 04:00 ALT 26 U/L (12-78) D 08/01/17 04:00 Alkaline Phosphatase 66 U/L (45-117) D 08/01/17 04:00 Total Protein 5.7 g/dl (6.4-8.2) L 08/01/17 04:00 Albumin 2.8 g/dl (3.4-5.0) L 08/01/17 04:00 CARDIAC ENZYMES Creatine Kinase 93 IU/L (39-308) 07/29/17 20:18 Troponin I 0.03 ng/ml (0.00-0.05) 07/29/17 20:18 Current Medications Generic Name Dose Route Start Last Admin Trade Name Freq PRN Reason Stop Dose Admin Acetaminophen 1,000 mg 08/04/17 11:57 08/04/17 12:21 Ofirmev Injection - IVPB 1,000 mg Q6H PRN Administration FEVER OR PAIN Albuterol Sulfate 1 amp 07/31/17 08:51 08/04/17 17:00 Ventolin 0.083% Nebulizer Soln - NEB 1 amp Q4H PRN Administration SHORT OF BREATH/WHEEZING Amlodipine Besylate 2.5 mg 08/03/17 10:00 08/03/17 10:32 Norvasc - NGT 2.5 mg DAILY MINDI Administration Budesonide/Formoterol Fumarate 2 puff 07/31/17 10:00 08/04/17 09:27 Symbicort 160/4.5mcg - IH 2 puff BID MINDI Administration Chlorhexidine Gluconate 1 applic 07/30/17 22:00 08/03/17 22:51 Hibiclens For Decolonization - TP 1 applic HS MINDI Administration Furosemide 40 mg 08/04/17 14:00 08/04/17 14:03 Lasix Injection - IVPUSH 40 mg BID@0600,1400 MINDI Administration Heparin Sodium (Porcine) 5,000 unit 08/03/17 14:00 08/04/17 15:33 Heparin - SQ Not Given TID MINDI Methylprednisolone Sodium Succinate 60 mg 08/04/17 15:45 08/04/17 16:39 Solu-Medrol - IVPUSH Not Given BID MINDI Mupirocin 1 applic 07/30/17 22:00 08/03/17 22:52 Bactroban Ointment (For Decolonization) - NS 08/04/17 21:59 1 applic BID MINDI Administration Nicotine 7 mg 07/31/17 10:00 08/03/17 10:22 Nicoderm Patch - TD 7 mg DAILY MINDI Administration Pantoprazole Sodium 40 mg 08/03/17 10:00 08/03/17 10:22 Protonix Iv IVPUSH 40 mg DAILY MINDI Administration Spironolactone 25 mg 08/04/17 13:30 08/04/17 14:03 Aldactone - PO 25 mg DAILY MINDI Administration Valsartan 80 mg 08/04/17 13:18 Diovan - PO DAILY [facility] Home Medications Medication Instructions Recorded NK [No Known Home Medication] 07/29/17 PE: morbidly obese rest of PE per resident's note ASSESSMENT AND PLAN: Patient is a 52 y/o man with h/o morbid obesity , Childhood asthma and nicotine dependence who presented with SOB x 3 days and was found to have acute hypoxic hypercapnic respiratory failure # Acute hypoxic hypercapnic resp failure due to COPD exacerbation with morbid obesity can't r/o Pickwickian syndrome.sleep study as an outpatient recommended. Pulmonary is on the case. cont ceftriaxone and azithro empirically day 5 today # Acute COPD exacerbation on Nebulizer treatments completed Abx treatment. Rocephin/zithromax IV, continue IV steroid. # Pulmonary HTN ; R sided heart failure , possible L sided heart failure with no evidence of PNA # HTN: cont norvasc and valsartan # Nutrition : change to Glucerna since patient running high blood sugar HA1c in am. DVT Px: Heparin sq
[2017-08-04] MEDS: CHLORHEXIDINE GLUCONATE 4% CLEANSER FOR DECOLONIZATION TP SCH (21:26)
[2017-08-05 06:43] LABS: MCH 25.9 pg (25.7-33.7); MCHC 31.6 g/dl (32.0-35.9); MEAN CELL VOLUME 81.8 fl (80-96); MEAN PLT VOLUME 8.1 fl (7.5-11.1); PLATELET COUNT 137 K/MM3 (134-434); WHITE BLOOD COUNT 11.5 K/mm3 (4.0-10.0)
[2017-08-05 07:26] LABS: ANION GAP 9 (8-16); CALCIUM 7.7 mg/dL (8.5-10.1); CO2 39 mmol/L (21-32); CREATININE 0.7 mg/dL (0.7-1.3); GLUCOSE,RANDOM 114 mg/dL (74-106); MAGNESIUM 2.3 mg/dL (1.8-2.4); PHOSPHOROUS 1.9 mg/dL (2.5-4.9)
[2017-08-05 07:48] LABS: ARTERIAL BLOOD GAS BASE EXCESS 15.8 meq/l (-2-2); ARTERIAL BLOOD GAS HCO3 43.1 meq/L (22-26); ARTERIAL BLOOD GAS pH 7.46 (7.35-7.45)
[2017-08-05 08:00] LABS: ALLENS TEST POSITIVE; ART PUNCT SITE LEFT RADIAL; LPM/O2% 21; PT. ON O2? NO; TYPE OF O2 ROOM AIR
[2017-08-05 08:02] LABS: ARTERIAL BLOOD GAS PO2 42.8 mmHg (80-100)
--- NOTE | 2017-08-05 08:55 | PN ---
Progress Note, Physician History of Present Illness: Comfortable on NC, diuresing well. - Current Medication List Current Medications: Active Medications Acetaminophen (Ofirmev Injection -) 1,000 mg IVPB Q6H PRN PRN Reason: FEVER OR PAIN Last Admin: 08/04/17 12:21 Dose: 1,000 mg Amlodipine Besylate (Norvasc -) 2.5 mg NGT DAILY [facility] Last Admin: 08/03/17 10:32 Dose: 2.5 mg Budesonide/Formoterol Fumarate (Symbicort 160/4.5mcg -) 2 puff IH BID [facility] Last Admin: 08/04/17 21:27 Dose: 2 puff Chlorhexidine Gluconate (Hibiclens For Decolonization -) 1 applic TP HS [facility] Last Admin: 08/04/17 21:26 Dose: 1 applic Furosemide (Lasix Injection -) 40 mg IVPUSH BID@0600,1400 [facility] Last Admin: 08/04/17 14:03 Dose: 40 mg Heparin Sodium (Porcine) (Heparin -) 5,000 unit SQ TID [facility] Last Admin: 08/04/17 21:26 Dose: 5,000 unit Methylprednisolone Sodium Succinate (Solu-Medrol -) 60 mg IVPUSH BID [facility] Last Admin: 08/04/17 21:25 Dose: 60 mg Nicotine (Nicoderm Patch -) 7 mg TD DAILY [facility] Last Admin: 08/03/17 10:22 Dose: 7 mg Pantoprazole Sodium (Protonix Iv) 40 mg IVPUSH DAILY [facility] Last Admin: 08/03/17 10:22 Dose: 40 mg Spironolactone (Aldactone -) 25 mg PO DAILY [facility] Last Admin: 08/04/17 14:03 Dose: 25 mg Valsartan (Diovan -) 80 mg PO DAILY [facility] - Objective Vital Signs: Vital Signs Temperature 98.2 F 08/05/17 02:00 Pulse Rate 82 08/05/17 08:00 Respiratory Rate 30 H 08/05/17 08:00 Blood Pressure 150/101 08/05/17 08:00 O2 Sat by Pulse Oximetry (%) 93 L 08/04/17 19:51 Constitutional: Yes: No Distress, Calm Neck: Yes: Supple Cardiovascular: Yes: Regular Rate and Rhythm Respiratory: Yes: Regular, Diminished Gastrointestinal: Yes: Normal Bowel Sounds, Soft, Abdomen, Obese Edema: Yes Edema: LLE: 1+, RLE: 1+ Labs: CBC, BMP 08/05/17 06:10 08/05/17 06:10 INR, PTT INR 1.17 (0.82-1.09) H 08/01/17 04:00 - ....Imaging Chest X-ray: Report Reviewed (Improved congestion) Problem List - Problems (1) Sleep apnea Code(s): G47.30 - SLEEP APNEA, UNSPECIFIED Qualifiers: Sleep apnea type: obstructive Qualified Code(s): G47.33 - Obstructive sleep apnea (adult) (pediatric) (2) Morbid obesity Code(s): E66.01 - MORBID (SEVERE) OBESITY DUE TO EXCESS CALORIES (3) COPD exacerbation Code(s): J44.1 - CHRONIC OBSTRUCTIVE PULMONARY DISEASE W (ACUTE) EXACERBATION (4) Asthma Code(s): J45.909 - UNSPECIFIED ASTHMA, UNCOMPLICATED Qualifiers: Asthma severity: unspecified severity (5) Acute on chronic respiratory failure with hypoxia and hypercapnia Code(s): J96.21 - ACUTE AND CHRONIC RESPIRATORY FAILURE WITH HYPOXIA; J96.22 - ACUTE AND CHRONIC RESPIRATORY FAILURE WITH HYPERCAPNIA (6) Pulmonary HTN Code(s): I27.20 - PULMONARY HYPERTENSION, UNSPECIFIED (7) Cor pulmonale Code(s): I27.81 - COR PULMONALE (CHRONIC) (8) Diastolic dysfunction Code(s): I51.9 - HEART DISEASE, UNSPECIFIED Assessment/Plan 07/30/2017 Echo: with severe dilation of R sided heart with Mod TR and severe pulm HTN ASSESSMENT: 1. Post acute on hypoxemic/hypercapneic respiratory failure 2. Acute COPD exacerbation 3. Obesity/hypoventilation syndrome 4. Severe pulm HTN with cor pulmonale 5. Morbid obesity 6. OSAS suspect 7. Probable diastolic LV dysfunction 8. Tobacco abuse PLAN: 1. BD, wean FIO2 as tolerated, IV steroid taper with GI protection 2. Continue Lasix 40 IV bid and Aldactone 25 qd with monitor electrolytes and renal fxn 3. Increase Norvasc 5 qd and Diovan 80 qd 4. DVT and GI prophylaxis 5. PSG as outpatient, smoking cessation, RHC to confirm severe pulm HTN
[2017-08-05] MEDS ORDERED: amLODIPine BESYLATE 5 MG TABLET (FP) PO SCH (09:34)
[2017-08-05] MEDS ORDERED: POTASSIUM CHLORIDE TABS 20 MEQ TABLET.ER (FP) PO ONE (10:45)
--- NOTE | 2017-08-05 11:37 | PN ---
Progress Note, SAS PROGRAMMER - Note Progress Note: Selected Entries 08/04/17 08/04/17 08/04/17 02:00 10:00 15:34 Lunch 100% Supper Temperature 98.2 F 98.5 F 08/04/17 08/04/17 08/05/17 16:00 18:00 02:00 Lunch Supper 75% Temperature 98.3 F 98.6 F 98.2 F 08/05/17 10:00 Lunch Supper Temperature 98.5 F Laboratory Tests 08/04/17 08/05/17 07:20 06:10 WBC 10.5 H D 11.5 H pt now on regular diet, thin liquids. No reports of difficulty. No further f/u indicated at this time.
[2017-08-05] MEDS: SPIRONOLACTONE 25 MG TABLET (FP) PO SCH (12:15)
[2017-08-05] MEDS: NICOTINE 7 MG/24 HOURS TOPICAL PATCH TD SCH (12:17)
[2017-08-05] MEDS: PANTOPRAZOLE SODIUM 40 MG VIAL IVPUSH SCH (12:17)
[2017-08-05] MEDS: methylPREDNISolone NA SUCC 125 MG/2 ML VIAL IVPUSH SCH (12:18)
[2017-08-05] MEDS: BUDESONIDE/FORMETEROL FUMARATE 160/4.5 mcg INHALER IH SCH ×2 (12:32→22:25)
[2017-08-05] MEDS: HEPARIN NA (PORCINE) 5,000 UNITS/ML 1ML VIAL SQ SCH ×3 (13:03→22:09)
[2017-08-05] MEDS: FUROSEMIDE 40 MG/4 ML INJECTABLE VIAL IVPUSH SCH ×2 (13:04→15:13)
--- NOTE | 2017-08-05 13:40 | PN ---
Teaching Attending Note Name of Resident: Susan Carter ATTENDING PHYSICIAN STATEMENT I saw and evaluated the patient. I reviewed the resident's note and discussed the case with the resident. I agree with the resident's findings and plan as documented. SUBJECTIVE: Pt seen and examined in the ICU. Remains extubated. Used BiPAP overnight, currently saturating well on nasal cannula. OBJECTIVE: Last Vital Signs Temp Pulse Resp BP Pulse Ox 98.5 F 86 17 149/98 91 L 08/05/17 10:00 08/05/17 11:44 08/05/17 10:00 08/05/17 10:00 08/05/17 11:44 Intake & Output 08/02/17 08/03/17 08/04/17 08/05/17 23:59 23:59 23:59 23:59 Intake Total 1613 1791.6 645 740 Output Total 3700 3800 5400 [facility] -2087 -2008.4 -4755 740 Weight 411 lb 6.121 oz 409 lb 402 lb 5.498 oz Gen: mildly tachypneic with exertion Heart: RRR Lung: distant breath sounds, no wheezes Abd: soft, nontender Ext: + edema CBC, BMP 08/05/17 06:10 08/05/17 06:10 Active Medications Acetaminophen (Ofirmev Injection -) 1,000 mg IVPB Q6H PRN PRN Reason: FEVER OR PAIN Last Admin: 08/04/17 12:21 Dose: 1,000 mg Amlodipine Besylate (Norvasc -) 5 mg PO DAILY [facility] Last Admin: 08/05/17 12:16 Dose: 5 mg Budesonide/Formoterol Fumarate (Symbicort 160/4.5mcg -) 2 puff IH BID [facility] Last Admin: 08/05/17 12:32 Dose: 2 puff Chlorhexidine Gluconate (Hibiclens For Decolonization -) 1 applic TP HS [facility] Last Admin: 08/04/17 21:26 Dose: 1 applic Furosemide (Lasix Injection -) 40 mg IVPUSH BID@0600,1400 [facility] Last Admin: 08/05/17 13:04 Dose: 40 mg Heparin Sodium (Porcine) (Heparin -) 5,000 unit SQ TID [facility] Last Admin: 08/05/17 13:03 Dose: 5,000 unit Methylprednisolone Sodium Succinate (Solu-Medrol -) 60 mg IVPUSH BID [facility] Last Admin: 08/05/17 12:18 Dose: 60 mg Nicotine (Nicoderm Patch -) 7 mg TD DAILY [facility] Last Admin: 08/05/17 12:17 Dose: 7 mg Pantoprazole Sodium (Protonix Iv) 40 mg IVPUSH DAILY [facility] Last Admin: 08/05/17 12:17 Dose: 40 mg Spironolactone (Aldactone -) 25 mg PO DAILY [facility] Last Admin: 08/05/17 12:15 Dose: 25 mg Valsartan (Diovan -) 80 mg PO DAILY [facility] Last Admin: 08/05/17 12:16 Dose: 80 mg ASSESSMENT AND PLAN: Acute on Chronic Hypoxic and Hypercapneic Respiratory Failure improving Acute COPD Exacerbation Morbid Obesity RANJIT/OHS Severe Pulmonary HTN Atelectasis r/o Pneumonia - completed empiric antibiotics - anticoagulation d/c'd - inhaled bronchodilators - medrol taper - continue lasix - monitor urine output, creatinine - PO as tolerated - BiPAP at night and PRN during day - will likely need home O2, BiPAP - PT/rehab - DVT/GI prophylaxis - can monitor on telemetry critical care time spent in reviewing chart, evaluating patient and formulating plan 35 min
--- NOTE | 2017-08-05 14:47 | PN ---
Physical Exam: SUBJECTIVE: Patient seen and examined at bedside. 24 hr events -Pt was on BiPAP overnight, tolerating well -Afebrile Today -sat well on 5L NC 02, Fi02 50% -removed central line from R IJ -pt denies chest pain, SOB, headache, fever, chills -Stable for transfer to [facility]. Order is in. OBJECTIVE: Vital Signs Period Temp Pulse Resp BP Sys/Melgoza Pulse Ox Last 24 Hr 98.2 F-98.6 F 63-94 17-30 115-187/62-111 91-93 GENERAL: The patient is awake, alert, and fully oriented, in no acute distress. HEAD: Normal with no signs of trauma. EYES: PERRL, extraocular movements intact, sclera anicteric, conjunctiva clear. NECK: Trachea midline, supple. LUNGS: Distant breath sounds d/t body habitus, but otherwise clear to auscultation. No wheezes/crackles/rhonchi. HEART: Regular rate and rhythm, S1, S2 without murmur, rub or gallop. ABDOMEN: Soft, obese, nontender, nondistended, normoactive bowel sounds EXTREMITIES: 2+ posterior tibial pulses, warm, well-perfused, 1+ nonpitting edema b/l NEUROLOGICAL: Cranial nerves II through XII grossly intact. Laboratory Results - last 24 hr 08/05/17 08/05/17 08/05/17 06:10 06:10 06:10 WBC 11.5 H RBC 5.57 Hgb 14.4 Hct 45.6 MCV 81.8 MCH 25.9 MCHC 31.6 L RDW 17.0 H Plt Count 137 MPV 8.1 PTT (Actin FS) 28.2 Puncture Site ABG pH ABG pCO2 at Pt Temp ABG pO2 at Pt Temp ABG HCO3 ABG O2 Sat (Measured) ABG O2 Content ABG Base Excess Neto Test O2 Delivery Device Oxygen Flow Rate PEEP Sodium 143 Potassium 3.5 Chloride 95 L Carbon Dioxide 39 H Anion Gap 9 BUN 20 H Creatinine 0.7 Random Glucose 114 H Calcium 7.7 L Phosphorus 1.9 L D Magnesium 2.3 08/05/17 07:29 WBC RBC Hgb Hct MCV MCH MCHC RDW Plt Count MPV PTT (Actin FS) Puncture Site Left radial ABG pH 7.46 H ABG pCO2 at Pt Temp 61.0 H* D ABG pO2 at Pt Temp 42.8 L* D ABG HCO3 43.1 H* ABG O2 Sat (Measured) 77.0 L ABG O2 Content 15.4 ABG Base Excess 15.8 H* Neto Test Positive O2 Delivery Device Room air Oxygen Flow Rate 21 PEEP 0.0 Sodium Potassium Chloride Carbon Dioxide Anion Gap BUN Creatinine Random Glucose Calcium Phosphorus Magnesium Active Medications Generic Name Dose Route Start Last Admin Trade Name Freq PRN Reason Stop Dose Admin Acetaminophen 1,000 mg 08/04/17 11:57 08/04/17 12:21 Ofirmev Injection - IVPB 1,000 mg Q6H PRN Administration FEVER OR PAIN Amlodipine Besylate 5 mg 08/05/17 09:34 08/05/17 12:16 Norvasc - PO 5 mg DAILY MINDI Administration Budesonide/Formoterol Fumarate 2 puff 07/31/17 10:00 08/05/17 12:32 Symbicort 160/4.5mcg - IH 2 puff BID MINDI Administration Chlorhexidine Gluconate 1 applic 07/30/17 22:00 08/04/17 21:26 Hibiclens For Decolonization - TP 1 applic HS MINDI Administration Furosemide 40 mg 08/04/17 14:00 08/05/17 13:04 Lasix Injection - IVPUSH 40 mg BID@0600,1400 MINDI Administration Heparin Sodium (Porcine) 5,000 unit 08/03/17 14:00 08/05/17 13:03 Heparin - SQ 5,000 unit TID MINDI Administration Methylprednisolone Sodium Succinate 60 mg 08/04/17 15:45 08/05/17 12:18 Solu-Medrol - IVPUSH 60 mg BID MINDI Administration Nicotine 7 mg 07/31/17 10:00 08/05/17 12:17 Nicoderm Patch - TD 7 mg DAILY MINDI Administration Pantoprazole Sodium 40 mg 08/03/17 10:00 08/05/17 12:17 Protonix Iv IVPUSH 40 mg DAILY MINDI Administration Spironolactone 25 mg 08/04/17 13:30 08/05/17 12:15 Aldactone - PO 25 mg DAILY MINDI Administration Valsartan 80 mg 08/04/17 13:18 08/05/17 12:16 Diovan - PO 80 mg DAILY MINDI Administration ASSESSMENT/PLAN: 52 y/o M with PMH of urinary incontinence, chronic knee pain and mild asthma, who presented to the ED due to worsening SOB, right ear pain, b/l eye discharge , and runny nose x 5 days. On presentation to the ED, patient was in hypoxic hypercarbic respiratory failure with an O2 sat 82% on RA, with diffuse facial edema/erythema. 2/2 acute COPD exacerbation or obesity hypoventilation syndrome PULM #hypoxic hypercarbic respiratory failure 2/2 to acute COPD exacerbation or obesity hypoventilation syndrome -pulm HTN, cor pulmonale -pt extubated, currently on 5L NC 02, used BiPAP overnight -currently denies SOB, chest or lower extremity pain -On 60mg solumedrol IVP -lasix gtt d/c, now on lasix IVP 40mg BID -Continue Nicoderm patch -Continue Symbicort 2 Puffs BID -BiPAP PRN #r/o PE- resolved -initial CTA inconclusive, no PE evident- even if small, would not cause such drastic sx -heparin gtt has been d/c ID #Pulm prophylaxis -Continue azithromycin 500mg, ceftriaxone 1g (Today is Day6) -Will continue to follow ID recs NEURO -AAOx3 -pt extubated, on NC 02 CARDIO #HTN- uncontrolled 2/2 pain, discomfort -Continue Norvasc 2.5 mg qd -Diovan 80mg qd -Aldactone 25mg qd RENAL -diuresing well -will continue to follow BUN/Cr; 20/0.7 -previous increases in rft may have been 2/2 steroids -F/u BMP PROPHYLAXIS -DVT: started back on Heparin 5000 U SQ TID -GI: Protonix 40 mg IVP qd F/E/N -Will continue to monitor electrolytes -regular diet, thin liquids Disposition stable for transfer to [facility]. order is in pt for physical therapy. Will most likely require home O2, BiPAP Visit type - Emergency Visit Emergency Visit: No - New Patient This patient is new to me today: No - Critical Care Critical Care patient: Yes Total Critical Care Time (in minutes): 42 Critical Care Statement: The care of this patient involved high complexity decision making to prevent further life threatening deterioration of the patient 's condition and/or to evaluate & treat vital organ system(s) failure or risk of failure.
[2017-08-05] MEDS ORDERED: amLODIPine BESYLATE 5 MG TABLET (FP) PO ONE (15:55)
--- NOTE | 2017-08-05 16:31 | PN ---
Teaching Attending Note Name of Resident: Tera Figueroa ATTENDING PHYSICIAN STATEMENT I saw and evaluated the patient. I reviewed the resident's note and discussed the case with the resident. I agree with the resident's findings and plan as documented. SUBJECTIVE: Patient is better, with no acute distress. No fever or chills. OBJECTIVE: Vital Signs Temperature 98.6 F 08/05/17 14:00 Pulse Rate 78 08/05/17 15:55 Respiratory Rate 27 H 08/05/17 15:55 Blood Pressure 172/103 08/05/17 15:55 O2 Sat by Pulse Oximetry (%) 91 L 08/05/17 11:44 CBCD WBC 11.5 K/mm3 (4.0-10.0) H 08/05/17 06:10 RBC 5.57 M/mm3 (4.00-5.60) 08/05/17 06:10 Hgb 14.4 GM/dL (11.7-16.9) 08/05/17 06:10 Hct 45.6 % (35.4-49) 08/05/17 06:10 MCV 81.8 fl (80-96) 08/05/17 06:10 MCHC 31.6 g/dl (32.0-35.9) L 08/05/17 06:10 RDW 17.0 % (11.9-15.9) H 08/05/17 06:10 Plt Count 137 K/MM3 (134-434) 08/05/17 06:10 MPV 8.1 fl (7.5-11.1) 08/05/17 06:10 CMP Sodium 143 mmol/L (136-145) 08/05/17 06:10 Potassium 3.5 mmol/L (3.5-5.1) 08/05/17 06:10 Chloride 95 mmol/L (98-107) L 08/05/17 06:10 Carbon Dioxide 39 mmol/L (21-32) H 08/05/17 06:10 Anion Gap 9 (8-16) 08/05/17 06:10 BUN 20 mg/dL (7-18) H 08/05/17 06:10 Creatinine 0.7 mg/dL (0.7-1.3) 08/05/17 06:10 Creat Clearance w eGFR > 60 (>60) 08/01/17 04:00 Random Glucose 114 mg/dL (74-106) H 08/05/17 06:10 Calcium 7.7 mg/dL (8.5-10.1) L 08/05/17 06:10 Total Bilirubin 0.5 mg/dL (0.2-1.0) 08/01/17 04:00 AST 11 U/L (15-37) L D 08/01/17 04:00 ALT 26 U/L (12-78) D 08/01/17 04:00 Alkaline Phosphatase 66 U/L (45-117) D 08/01/17 04:00 Total Protein 5.7 g/dl (6.4-8.2) L 08/01/17 04:00 Albumin 2.8 g/dl (3.4-5.0) L 08/01/17 04:00 CARDIAC ENZYMES Creatine Kinase 93 IU/L (39-308) 07/29/17 20:18 Troponin I 0.03 ng/ml (0.00-0.05) 07/29/17 20:18 Current Medications Generic Name Dose Route Start Last Admin Trade Name Freq PRN Reason Stop Dose Admin Acetaminophen 1,000 mg 08/04/17 11:57 08/04/17 12:21 Ofirmev Injection - IVPB 1,000 mg Q6H PRN Administration FEVER OR PAIN Amlodipine Besylate 5 mg 08/05/17 09:34 08/05/17 12:16 Norvasc - PO 5 mg DAILY MINDI Administration Budesonide/Formoterol Fumarate 2 puff 07/31/17 10:00 08/05/17 12:32 Symbicort 160/4.5mcg - IH 2 puff BID MINDI Administration Chlorhexidine Gluconate 1 applic 07/30/17 22:00 08/04/17 21:26 Hibiclens For Decolonization - TP 1 applic HS MINDI Administration Furosemide 40 mg 08/04/17 14:00 08/05/17 15:13 Lasix Injection - IVPUSH 40 mg BID@0600,1400 MINDI Administration Heparin Sodium (Porcine) 5,000 unit 08/03/17 14:00 08/05/17 15:13 Heparin - SQ 5,000 unit TID MINDI Administration Methylprednisolone Sodium Succinate 60 mg 08/04/17 15:45 08/05/17 12:18 Solu-Medrol - IVPUSH 60 mg BID MINDI Administration Nicotine 7 mg 07/31/17 10:00 08/05/17 12:17 Nicoderm Patch - TD 7 mg DAILY MINDI Administration Pantoprazole Sodium 40 mg 08/03/17 10:00 08/05/17 12:17 Protonix Iv IVPUSH 40 mg DAILY MINDI Administration Spironolactone 25 mg 08/04/17 13:30 08/05/17 12:15 Aldactone - PO 25 mg DAILY MINDI Administration Valsartan 80 mg 08/04/17 13:18 08/05/17 12:16 Diovan - PO 80 mg DAILY MINDI Administration Home Medications Medication Instructions Recorded NK [No Known Home Medication] 07/29/17 PE: morbidly obese rest of PE per resident's note ASSESSMENT AND PLAN: Patient is a 52 y/o man with h/o morbid obesity , Childhood asthma and nicotine dependence who presented with SOB x 3 days and was found to have acute hypoxic hypercapnic respiratory failure # Acute hypoxic hypercapnic resp failure due to COPD exacerbation with morbid obesity can't r/o Pickwickian syndrome.sleep study as an outpatient recommended. Pulmonary is on the case. will arrange for sleep studies , discontinued IV antibiotics ceftriaxone and azithro. # Acute COPD exacerbation on Nebulizer treatments completed Abx treatment. s/p Rocephin/zithromax IV, switched to po steroid from IV # Pulmonary HTN ; R sided heart failure , possible L sided heart failure with no evidence of PNA # HTN: cont norvasc and valsartan DVT Px: Heparin sq
--- NOTE | 2017-08-05 16:45 | PN ---
Physical Exam: SUBJECTIVE: Pt continues to improve and feels better. No acute events overnight. Pt reports using CPAP machine and needs to get used to the mask while sleeping. Pt denies SOB, CP/discomfort, fever/chills, and abdominal pain OBJECTIVE: Vital Signs Period Temp Pulse Resp BP Sys/Melgoza Pulse Ox Last 24 Hr 98.2 F-98.6 F 63-94 17-30 115-187/62-111 91-93 GENERAL: NAD, bed elevated to almost standing while eating breakfast currently HEENT: EOMI, NIDHI, no JVD noted, R IJ central line noted currently with area C/ D/I LUNGS: Slight expiratory wheezes at bases, however otherwise with good air entry and cta HEART: Regular rate and rhythm, S1, S2 without murmur, rub or gallop. ABDOMEN: Soft, obese, nontender, nondistended, normoactive bowel sounds, no guarding EXTREMITIES: 2+ pitting edema to mid-lower leg. 2+ DP pulses bilaterally NEUROLOGICAL: Alert and orientedx3. Nonfocal SKIN: Warm, dry, no rashes or lesions noted Laboratory Results - last 24 hr 08/05/17 08/05/17 08/05/17 06:10 06:10 06:10 WBC 11.5 H RBC 5.57 Hgb 14.4 Hct 45.6 MCV 81.8 MCH 25.9 MCHC 31.6 L RDW 17.0 H Plt Count 137 MPV 8.1 PTT (Actin FS) 28.2 Puncture Site ABG pH ABG pCO2 at Pt Temp ABG pO2 at Pt Temp ABG HCO3 ABG O2 Sat (Measured) ABG O2 Content ABG Base Excess Neto Test O2 Delivery Device Oxygen Flow Rate PEEP Sodium 143 Potassium 3.5 Chloride 95 L Carbon Dioxide 39 H Anion Gap 9 BUN 20 H Creatinine 0.7 Random Glucose 114 H Calcium 7.7 L Phosphorus 1.9 L D Magnesium 2.3 08/05/17 07:29 WBC RBC Hgb Hct MCV MCH MCHC RDW Plt Count MPV PTT (Actin FS) Puncture Site Left radial ABG pH 7.46 H ABG pCO2 at Pt Temp 61.0 H* D ABG pO2 at Pt Temp 42.8 L* D ABG HCO3 43.1 H* ABG O2 Sat (Measured) 77.0 L ABG O2 Content 15.4 ABG Base Excess 15.8 H* Neto Test Positive O2 Delivery Device Room air Oxygen Flow Rate 21 PEEP 0.0 Sodium Potassium Chloride Carbon Dioxide Anion Gap BUN Creatinine Random Glucose Calcium Phosphorus Magnesium Active Medications Generic Name Dose Route Start Last Admin Trade Name Italo PRN Reason Stop Dose Admin Acetaminophen 1,000 mg 08/04/17 11:57 08/04/17 12:21 Ofirmev Injection - IVPB 1,000 mg Q6H PRN Administration FEVER OR PAIN Amlodipine Besylate 5 mg 08/05/17 09:34 08/05/17 12:16 Norvasc - PO 5 mg DAILY MINDI Administration Budesonide/Formoterol Fumarate 2 puff 07/31/17 10:00 08/05/17 12:32 Symbicort 160/4.5mcg - IH 2 puff BID MINDI Administration Chlorhexidine Gluconate 1 applic 07/30/17 22:00 08/04/17 21:26 Hibiclens For Decolonization - TP 1 applic HS MINDI Administration Furosemide 40 mg 08/04/17 14:00 08/05/17 15:13 Lasix Injection - IVPUSH 40 mg BID@0600,1400 MINDI Administration Heparin Sodium (Porcine) 5,000 unit 08/03/17 14:00 08/05/17 15:13 Heparin - SQ 5,000 unit TID MINDI Administration Methylprednisolone Sodium Succinate 60 mg 08/04/17 15:45 08/05/17 12:18 Solu-Medrol - IVPUSH 60 mg BID MINDI Administration Nicotine 7 mg 07/31/17 10:00 08/05/17 12:17 Nicoderm Patch - TD 7 mg DAILY MINDI Administration Pantoprazole Sodium 40 mg 08/03/17 10:00 08/05/17 12:17 Protonix Iv IVPUSH 40 mg DAILY MINID Administration Spironolactone 25 mg 08/04/17 13:30 08/05/17 12:15 Aldactone - PO 25 mg DAILY MINDI Administration Valsartan 80 mg 08/04/17 13:18 08/05/17 12:16 Diovan - PO 80 mg DAILY MINDI Administration ASSESSMENT/PLAN: 1) Hypercapnic hypoxic respiratory failure --2/2 acute COPD exacerbation and hypoventilation vs. acute congestive heart dysfunction --Resolving --CPAP at night; pt tolerating --Titrate SpO2 >90% (currently on NC5L) --Solumedrol 60mg to continue --Will d/c lasix gtt; start Lasix IVP 40mg BID --Symbicort to continue --Will discuss with ID about antibiotics and possibility of ABX d/c 2) HTN --Norvasc increased to 5mg qdaily --Diovan 80mg qDaily --Monitor BP --If continues to be elevated can add another Diovan 80mg once and start Diovan 80mg BID next AM --Lasix as above; Aldactone 25mg qDaily FEN: Fluids: Avoid IVF Electrolyte abnormalities: Nutrition: Low fat/cholesterol diet PPX: DVT - Heparin 5000U SQ TID Deconditioning - Physical therapy evaluation Dispo: Transfer to telemetry floor; remove central line Case discussed with Dr. Freddie Figueroa, DO - Internal Medicine PGY-1 Visit type - Emergency Visit Emergency Visit: No - New Patient This patient is new to me today: No - Critical Care Critical Care patient: No
[2017-08-05] MEDS ORDERED: ACETAMINOPHEN 1000 MG/100 ML VIAL (NON FORMULARY) IVPB PRN (16:56)
[2017-08-05] MEDS ORDERED: hydrALAZINE HCL 10 MG TABLET PO ONE (18:41)
[2017-08-05] MEDS ORDERED: hydrALAZINE HCL 25 MG TABLET (FP) PO ONE (18:43)
[2017-08-05] MEDS ORDERED: CHLORHEXIDINE GLUCONATE 4% CLEANSER FOR DECOLONIZATION TP SCH (22:00)
[2017-08-05] MEDS ORDERED: methylPREDNISolone NA SUCC 125 MG/2 ML VIAL IVPUSH SCH (22:00)
[2017-08-06] MEDS: HEPARIN NA (PORCINE) 5,000 UNITS/ML 1ML VIAL SQ SCH ×3 (06:48→21:15)
[2017-08-06] MEDS: FUROSEMIDE 40 MG/4 ML INJECTABLE VIAL IVPUSH SCH ×2 (06:48→15:00)
[2017-08-06 07:17] LABS: BASOPHIL 0.2 % (0-2.0); MCH 25.3 pg (25.7-33.7); MCHC 31.2 g/dl (32.0-35.9); MEAN CELL VOLUME 81.1 fl (80-96); MEAN PLT VOLUME 8.2 fl (7.5-11.1); NEUTROPHILS 93.2 % (42.8-82.8); PLATELET COUNT 132 K/MM3 (134-434); RDW 17.1 % (11.9-15.9); WHITE BLOOD COUNT 10.8 K/mm3 (4.0-10.0)
--- NOTE | 2017-08-06 07:42 | PN ---
Physical Exam: SUBJECTIVE: No acute events overnight. Pt getting more comfortable on BiPap while using it at night. Pt has no complaints today and feels like his SOB has resolved. OBJECTIVE: Vital Signs Period Temp Pulse Resp BP Sys/Melgoza Pulse Ox Last 24 Hr 96.9 F-98.9 F 66-91 17-30 117-178/63-107 91-99 GENERAL: NAD, bed elevated to 30 degrees HEENT: EOMI, NIDHI, no JVD noted, R side of neck without any erythema or warmth LUNGS: CTA bilaterally, no wheezes, rhonchi, rales. HEART: Regular rate and rhythm, S1, S2 without murmur, rub or gallop. ABDOMEN: Soft, obese, nontender, nondistended, normoactive bowel sounds, no guarding EXTREMITIES: 2+ pitting edema to mid-lower leg; improved from prior exam. 2+ DP pulses bilaterally NEUROLOGICAL: Alert and orientedx3. Nonfocal SKIN: Warm, dry, no rashes or lesions noted Laboratory Results - last 24 hr 08/05/17 08/05/17 08/06/17 06:10 07:29 05:19 WBC 10.8 H RBC 5.93 H Hgb 15.0 Hct 48.1 MCV 81.1 MCH 25.3 L MCHC 31.2 L RDW 17.1 H Plt Count 132 L MPV 8.2 Neutrophils % 93.2 H Lymphocytes % 2.4 L D Monocytes % 4.2 D Eosinophils % 0.0 Basophils % 0.2 PTT (Actin FS) 28.2 Puncture Site Left radial ABG pH 7.46 H ABG pCO2 at Pt Temp 61.0 H* D ABG pO2 at Pt Temp 42.8 L* D ABG HCO3 43.1 H* ABG O2 Sat (Measured) 77.0 L ABG O2 Content 15.4 ABG Base Excess 15.8 H* Neto Test Positive O2 Delivery Device Room air Oxygen Flow Rate 21 PEEP 0.0 Active Medications Generic Name Dose Route Start Last Admin Trade Name Freq PRN Reason Stop Dose Admin Acetaminophen 1,000 mg 08/05/17 16:56 Ofirmev Injection - IVPB Q6H PRN FEVER OR PAIN Albuterol/Ipratropium 1 amp 08/05/17 16:56 Duoneb - NEB Q4H PRN Amlodipine Besylate 5 mg 08/06/17 10:00 Norvasc - PO DAILY [facility] Budesonide/Formoterol Fumarate 2 puff 08/05/17 22:00 08/05/17 22:25 Symbicort 160/4.5mcg - IH 2 puff BID MINDI Administration Furosemide 40 mg 08/06/17 06:00 08/06/17 06:48 Lasix Injection - IVPUSH 40 mg BID@0600,1400 MINDI Administration Heparin Sodium (Porcine) 5,000 unit 08/05/17 22:00 08/06/17 06:48 Heparin - SQ 5,000 unit TID MINDI Administration Methylprednisolone Sodium Succinate 60 mg 08/05/17 22:00 08/05/17 22:09 Solu-Medrol - IVPUSH 60 mg BID MINDI Administration Nicotine 7 mg 08/06/17 10:00 Nicoderm Patch - TD DAILY [facility] Pantoprazole Sodium 40 mg 08/06/17 10:00 Protonix Iv IVPUSH DAILY [facility] Spironolactone 25 mg 08/06/17 10:00 Aldactone - PO DAILY [facility] Valsartan 80 mg 08/06/17 10:00 Diovan - PO DAILY [facility] ASSESSMENT/PLAN: 1) Hypercapnic hypoxic respiratory failure --2/2 acute COPD exacerbation and hypoventilation vs. acute congestive heart dysfunction --Resolving --CPAP at night; pt tolerating --Titrate SpO2 >90% (currently on NC5L) --D/C IV Solumedrol 60 --Will transition to Prednisone 40mg PO BID --Start Lasix IVP 40mg BID --Symbicort to continue --Pulmonology on board --Will assess a sleep screen to confirm sleep apnea --Work to qualify pt for BiPap machine at night and recommend formal sleep study regardless of qualification as an outpt. 2) HTN --Norvasc increased to 5mg qdaily --Diovan 80mg qDaily --Monitor BP --If continues to be elevated can add another Diovan 80mg once and start Diovan 80mg BID next AM --Lasix as above; Aldactone 25mg qDaily FEN: Fluids: Avoid IVF Electrolyte abnormalities: None Nutrition: Low fat/cholesterol diet PPX: DVT - Heparin 5000U SQ TID Deconditioning - Physical therapy evaluation Dispo: Transfer to telemetry floor; remove central line Visit type - Emergency Visit Emergency Visit: No - New Patient This patient is new to me today: No - Critical Care Critical Care patient: No
[2017-08-06 08:03] LABS: ARTERIAL BLD GAS O2 SATURATION 89.5 % (90-98.9); ARTERIAL BLOOD GAS BASE EXCESS 13.8 meq/l (-2-2); ARTERIAL BLOOD GAS HCO3 41.5 meq/L (22-26); ARTERIAL BLOOD GAS PO2 59.2 mmHg (80-100); ARTERIAL BLOOD GAS pH 7.43 (7.35-7.45)
[2017-08-06 08:05] LABS: ALLENS TEST POSITIVE; ART PUNCT SITE RIGHT RADIAL; LPM/O2% 3; PT. ON O2? YES; TYPE OF O2 N/C
[2017-08-06 08:07] LABS: ANION GAP 10 (8-16); CALCIUM 8.4 mg/dL (8.5-10.1); CO2 38 mmol/L (21-32); CREATININE 0.7 mg/dL (0.7-1.3); GLUCOSE,RANDOM 116 mg/dL (74-106)
[2017-08-06] MEDS: predniSONE 20 MG TABLET (UD) PO SCH ×3 (10:00→21:15)
[2017-08-06] MEDS: VALSARTAN 80 MG TABLET (UD) PO SCH (10:00)
[2017-08-06] MEDS: amLODIPine BESYLATE 5 MG TABLET (FP) PO SCH (10:01)
[2017-08-06] MEDS: BUDESONIDE/FORMETEROL FUMARATE 160/4.5 mcg INHALER IH SCH ×2 (10:01→21:16)
[2017-08-06] MEDS: NICOTINE 7 MG/24 HOURS TOPICAL PATCH TD SCH (10:01)
[2017-08-06] MEDS: SPIRONOLACTONE 25 MG TABLET (FP) PO SCH (10:01)
[2017-08-06] MEDS: PANTOPRAZOLE SODIUM 40 MG VIAL IVPUSH SCH (10:01)
--- NOTE | 2017-08-06 10:58 | PN ---
Progress Note, Physician History of Present Illness: Comfortable on NC, diuresing well. - Current Medication List Current Medications: Active Medications Acetaminophen (Ofirmev Injection -) 1,000 mg IVPB Q6H PRN PRN Reason: FEVER OR PAIN Albuterol/Ipratropium (Duoneb -) 1 amp NEB Q4H PRN Amlodipine Besylate (Norvasc -) 5 mg PO DAILY [facility] Last Admin: 08/06/17 10:01 Dose: 5 mg Budesonide/Formoterol Fumarate (Symbicort 160/4.5mcg -) 2 puff IH BID [facility] Last Admin: 08/06/17 10:01 Dose: 2 puff Furosemide (Lasix Injection -) 40 mg IVPUSH BID@0600,1400 [facility] Last Admin: 08/06/17 06:48 Dose: 40 mg Heparin Sodium (Porcine) (Heparin -) 5,000 unit SQ TID [facility] Last Admin: 08/06/17 06:48 Dose: 5,000 unit Nicotine (Nicoderm Patch -) 7 mg TD DAILY [facility] Last Admin: 08/06/17 10:01 Dose: 7 mg Pantoprazole Sodium (Protonix Iv) 40 mg IVPUSH DAILY [facility] Last Admin: 08/06/17 10:01 Dose: 40 mg Prednisone (Deltasone -) 40 mg PO BID [facility] Last Admin: 08/06/17 10:00 Dose: 40 mg Spironolactone (Aldactone -) 25 mg PO DAILY [facility] Last Admin: 08/06/17 10:01 Dose: 25 mg Valsartan (Diovan -) 80 mg PO DAILY [facility] Last Admin: 08/06/17 10:00 Dose: 80 mg - Objective Vital Signs: Vital Signs Temperature 98.0 F 08/06/17 06:00 Pulse Rate 74 08/06/17 06:00 Respiratory Rate 20 08/06/17 06:00 Blood Pressure 138/78 08/06/17 06:00 O2 Sat by Pulse Oximetry (%) 93 L 08/06/17 10:43 Constitutional: Yes: No Distress, Calm Neck: Yes: Supple Cardiovascular: Yes: Regular Rate and Rhythm Respiratory: Yes: Regular, Diminished, On Nasal O2 Gastrointestinal: Yes: Normal Bowel Sounds, Soft, Abdomen, Obese Edema: Yes Edema: LLE: Trace, RLE: Trace Labs: CBC, BMP 08/06/17 05:19 08/06/17 05:19 INR, PTT INR 1.17 (0.82-1.09) H 08/01/17 04:00 - ....Imaging Chest X-ray: Report Reviewed (Left base ATX) Problem List - Problems (1) Sleep apnea Code(s): G47.30 - SLEEP APNEA, UNSPECIFIED Qualifiers: Sleep apnea type: obstructive Qualified Code(s): G47.33 - Obstructive sleep apnea (adult) (pediatric) (2) Morbid obesity Code(s): E66.01 - MORBID (SEVERE) OBESITY DUE TO EXCESS CALORIES (3) COPD exacerbation Code(s): J44.1 - CHRONIC OBSTRUCTIVE PULMONARY DISEASE W (ACUTE) EXACERBATION (4) Asthma Code(s): J45.909 - UNSPECIFIED ASTHMA, UNCOMPLICATED Qualifiers: Asthma severity: unspecified severity (5) Acute on chronic respiratory failure with hypoxia and hypercapnia Code(s): J96.21 - ACUTE AND CHRONIC RESPIRATORY FAILURE WITH HYPOXIA; J96.22 - ACUTE AND CHRONIC RESPIRATORY FAILURE WITH HYPERCAPNIA (6) Pulmonary HTN Code(s): I27.20 - PULMONARY HYPERTENSION, UNSPECIFIED (7) Cor pulmonale Code(s): I27.81 - COR PULMONALE (CHRONIC) (8) Diastolic dysfunction Code(s): I51.9 - HEART DISEASE, UNSPECIFIED Assessment/Plan 07/30/2017 Echo: with severe dilation of R sided heart with Mod TR and severe pulm HTN ASSESSMENT: 1. Post acute on hypoxemic/hypercapneic respiratory failure resolving 2. Acute COPD exacerbation improving 3. Obesity/hypoventilation syndrome 4. Severe pulm HTN with cor pulmonale 5. Morbid obesity 6. OSAS suspect 7. Probable diastolic LV dysfunction 8. Tobacco abuse PLAN: 1. BD, wean FIO2 as tolerated, oral steroid taper with GI protection, completed empiric abx course, Bipap nightly 2. Decrease Lasix 40 IV qd and Aldactone 25 qd with monitor electrolytes and renal fxn 3. Continue Norvasc 5 qd and Diovan 80 qd 4. DVT and GI prophylaxis 5. PSG as outpatient, smoking cessation, RHC to confirm severe pulm HTN
--- NOTE | 2017-08-06 11:40 | PN ---
Progress Note, Physician History of Present Illness: pulmonary alert,nad,-sob,on nasal o2 - Current Medication List Current Medications: Active Medications Acetaminophen (Ofirmev Injection -) 1,000 mg IVPB Q6H PRN PRN Reason: FEVER OR PAIN Albuterol/Ipratropium (Duoneb -) 1 amp NEB Q4H PRN Amlodipine Besylate (Norvasc -) 5 mg PO DAILY [facility] Last Admin: 08/06/17 10:01 Dose: 5 mg Budesonide/Formoterol Fumarate (Symbicort 160/4.5mcg -) 2 puff IH BID [facility] Last Admin: 08/06/17 10:01 Dose: 2 puff Furosemide (Lasix Injection -) 40 mg IVPUSH BID@0600,1400 [facility] Stop: 08/06/17 14:00 Last Admin: 08/06/17 06:48 Dose: 40 mg Furosemide (Lasix Injection -) 40 mg IVPUSH DAILY [facility] Heparin Sodium (Porcine) (Heparin -) 5,000 unit SQ TID [facility] Last Admin: 08/06/17 06:48 Dose: 5,000 unit Nicotine (Nicoderm Patch -) 7 mg TD DAILY [facility] Last Admin: 08/06/17 10:01 Dose: 7 mg Pantoprazole Sodium (Protonix Iv) 40 mg IVPUSH DAILY [facility] Last Admin: 08/06/17 10:01 Dose: 40 mg Prednisone (Deltasone -) 40 mg PO BID [facility] Last Admin: 08/06/17 10:00 Dose: 40 mg Spironolactone (Aldactone -) 25 mg PO DAILY [facility] Last Admin: 08/06/17 10:01 Dose: 25 mg Valsartan (Diovan -) 80 mg PO DAILY [facility] Last Admin: 08/06/17 10:00 Dose: 80 mg - Objective Vital Signs: Vital Signs Temperature 98.0 F 08/06/17 06:00 Pulse Rate 74 08/06/17 06:00 Respiratory Rate 20 08/06/17 06:00 Blood Pressure 138/78 08/06/17 06:00 O2 Sat by Pulse Oximetry (%) 93 L 08/06/17 10:43 Constitutional: Yes: Calm, Obese Eyes: Yes: WNL HENT: Yes: WNL Neck: Yes: WNL Cardiovascular: Yes: Regular Rate and Rhythm, S1, S2 Respiratory: Yes: Diminished Gastrointestinal: Yes: Normal Bowel Sounds, Soft Extremities: Yes: WNL Edema: Yes Labs: CBC, BMP 08/06/17 05:19 08/06/17 05:19 INR, PTT INR 1.17 (0.82-1.09) H 08/01/17 04:00 Problem List - Problems (1) Acute respiratory failure with hypoxia and hypercarbia Code(s): J96.01 - ACUTE RESPIRATORY FAILURE WITH HYPOXIA; J96.02 - ACUTE RESPIRATORY FAILURE WITH HYPERCAPNIA (2) Sleep apnea Code(s): G47.30 - SLEEP APNEA, UNSPECIFIED Qualifiers: Sleep apnea type: obstructive Qualified Code(s): G47.33 - Obstructive sleep apnea (adult) (pediatric) (3) Morbid obesity Code(s): E66.01 - MORBID (SEVERE) OBESITY DUE TO EXCESS CALORIES (4) COPD exacerbation Code(s): J44.1 - CHRONIC OBSTRUCTIVE PULMONARY DISEASE W (ACUTE) EXACERBATION (5) Allergic dermatitis, upper and lower eyelids, bilateral Code(s): H01.111 - ALLERGIC DERMATITIS OF RIGHT UPPER EYELID; H01.112 - ALLERGIC DERMATITIS OF RIGHT LOWER EYELID; H01.114 - ALLERGIC DERMATITIS OF LEFT UPPER EYELID; H01.115 - ALLERGIC DERMATITIS OF LEFT LOWER EYELID (6) Asthma Code(s): J45.909 - UNSPECIFIED ASTHMA, UNCOMPLICATED Qualifiers: Asthma severity: unspecified severity (7) Acute on chronic respiratory failure with hypoxia and hypercapnia Code(s): J96.21 - ACUTE AND CHRONIC RESPIRATORY FAILURE WITH HYPOXIA; J96.22 - ACUTE AND CHRONIC RESPIRATORY FAILURE WITH HYPERCAPNIA (8) Pulmonary HTN Code(s): I27.20 - PULMONARY HYPERTENSION, UNSPECIFIED (9) Cor pulmonale Code(s): I27.81 - COR PULMONALE (CHRONIC) Assessment/Plan ASSESSMENT AND PLAN: Acute on Chronic Hypoxic and Hypercapneic Respiratory Failure improving Acute COPD Exacerbation Morbid Obesity RANJIT/OHS Severe Pulmonary HTN Atelectasis r/o Pneumonia - inhaled bronchodilators- - prednisone - continue lasix - PO as tolerated - BiPAP at night and PRN during day - will likely need home O2, BiPAP - PT/rehab - DVT/GI prophylaxis - sleep screen Ninoska BUCHANAN
--- NOTE | 2017-08-06 11:40 | PN ---
Teaching Attending Note Name of Resident: Tera Figueroa ATTENDING PHYSICIAN STATEMENT I saw and evaluated the patient. I reviewed the resident's note and discussed the case with the resident. I agree with the resident's findings and plan as documented. SUBJECTIVE: Patient is doing better, comfortable with no acute distress, no shortness of breath. OBJECTIVE: Vital Signs Temperature 98.0 F 08/06/17 06:00 Pulse Rate 74 08/06/17 06:00 Respiratory Rate 20 08/06/17 06:00 Blood Pressure 138/78 08/06/17 06:00 O2 Sat by Pulse Oximetry (%) 93 L 08/06/17 10:43 CBCD WBC 10.8 K/mm3 (4.0-10.0) H 08/06/17 05:19 RBC 5.93 M/mm3 (4.00-5.60) H 08/06/17 05:19 Hgb 15.0 GM/dL (11.7-16.9) 08/06/17 05:19 Hct 48.1 % (35.4-49) 08/06/17 05:19 MCV 81.1 fl (80-96) 08/06/17 05:19 MCHC 31.2 g/dl (32.0-35.9) L 08/06/17 05:19 RDW 17.1 % (11.9-15.9) H 08/06/17 05:19 Plt Count 132 K/MM3 (134-434) L 08/06/17 05:19 MPV 8.2 fl (7.5-11.1) 08/06/17 05:19 CMP Sodium 142 mmol/L (136-145) 08/06/17 05:19 Potassium 4.3 mmol/L (3.5-5.1) D 08/06/17 05:19 Chloride 94 mmol/L (98-107) L 08/06/17 05:19 Carbon Dioxide 38 mmol/L (21-32) H 08/06/17 05:19 Anion Gap 10 (8-16) 08/06/17 05:19 BUN 16 mg/dL (7-18) 08/06/17 05:19 Creatinine 0.7 mg/dL (0.7-1.3) 08/06/17 05:19 Creat Clearance w eGFR > 60 (>60) 08/01/17 04:00 Random Glucose 116 mg/dL (74-106) H 08/06/17 05:19 Calcium 8.4 mg/dL (8.5-10.1) L 08/06/17 05:19 Total Bilirubin 0.5 mg/dL (0.2-1.0) 08/01/17 04:00 AST 11 U/L (15-37) L D 08/01/17 04:00 ALT 26 U/L (12-78) D 08/01/17 04:00 Alkaline Phosphatase 66 U/L (45-117) D 08/01/17 04:00 Total Protein 5.7 g/dl (6.4-8.2) L 08/01/17 04:00 Albumin 2.8 g/dl (3.4-5.0) L 08/01/17 04:00 CARDIAC ENZYMES Creatine Kinase 93 IU/L (39-308) 07/29/17 20:18 Troponin I 0.03 ng/ml (0.00-0.05) 07/29/17 20:18 Current Medications Generic Name Dose Route Start Last Admin Trade Name Freq PRN Reason Stop Dose Admin Acetaminophen 1,000 mg 08/05/17 16:56 Ofirmev Injection - IVPB Q6H PRN FEVER OR PAIN Albuterol/Ipratropium 1 amp 08/05/17 16:56 Duoneb - NEB Q4H PRN Amlodipine Besylate 5 mg 08/06/17 10:00 08/06/17 10:01 Norvasc - PO 5 mg DAILY [facility] Administration Budesonide/Formoterol Fumarate 2 puff 08/05/17 22:00 08/06/17 10:01 Symbicort 160/4.5mcg - IH 2 puff BID [facility] Administration Furosemide 40 mg 08/06/17 06:00 08/06/17 06:48 Lasix Injection - IVPUSH 08/06/17 14:00 40 mg BID@0600,1400 [facility] Administration Furosemide 40 mg 08/07/17 10:00 Lasix Injection - IVPUSH DAILY [facility] Heparin Sodium (Porcine) 5,000 unit 08/05/17 22:00 08/06/17 06:48 Heparin - SQ 5,000 unit TID [facility] Administration Nicotine 7 mg 08/06/17 10:00 08/06/17 10:01 Nicoderm Patch - TD 7 mg DAILY [facility] Administration Pantoprazole Sodium 40 mg 08/06/17 10:00 08/06/17 10:01 Protonix Iv IVPUSH 40 mg DAILY [facility] Administration Prednisone 40 mg 08/06/17 09:15 08/06/17 10:00 Deltasone - PO 40 mg BID [facility] Administration Spironolactone 25 mg 08/06/17 10:00 08/06/17 10:01 Aldactone - PO 25 mg DAILY [facility] Administration Valsartan 80 mg 08/06/17 10:00 08/06/17 10:00 Diovan - PO 80 mg DAILY [facility] Administration Home Medications Medication Instructions Recorded NK [No Known Home Medication] 07/29/17 PE: morbidly obese CHEST: Decreased Air entry bl rest of PE per resident's note ASSESSMENT AND PLAN: Patient is a 52 y/o man with h/o morbid obesity , Childhood asthma and nicotine dependence who presented with SOB x 3 days and was found to have acute hypoxic hypercapnic respiratory failure # Acute hypoxic hypercapnic resp failure due to COPD exacerbation with morbid obesity can't r/o Pickwickian syndrome.sleep study as an outpatient recommended. Pulmonary is on the case. cont ceftriaxone and azithro empirically day 5 today # Acute COPD exacerbation on Nebulizer treatments completed Abx treatment. Rocephin/zithromax IV, continue IV steroid. # Pulmonary HTN ; R sided heart failure , possible L sided heart failure with no evidence of PNA # HTN: cont norvasc and valsartan # Nutrition : change to Glucerna since patient running high blood sugar HA1c in am. DVT Px: Heparin sq
[2017-08-06] MEDS: ALBUTEROL SO4 2.5/IPRATROPIUM 0.5 INH SOL 3 ML VIAL.NEB. NEB PRN (22:05)
[2017-08-07] MEDS: HEPARIN NA (PORCINE) 5,000 UNITS/ML 1ML VIAL SQ SCH ×3 (06:32→21:54)
[2017-08-07] MEDS: SPIRONOLACTONE 25 MG TABLET (FP) PO SCH (10:08)
[2017-08-07] MEDS: amLODIPine BESYLATE 5 MG TABLET (FP) PO SCH (10:08)
[2017-08-07] MEDS: BUDESONIDE/FORMETEROL FUMARATE 160/4.5 mcg INHALER IH SCH ×2 (10:08→21:54)
[2017-08-07] MEDS: FUROSEMIDE 40 MG/4 ML INJECTABLE VIAL IVPUSH SCH (10:08)
[2017-08-07] MEDS: VALSARTAN 80 MG TABLET (UD) PO SCH (10:08)
[2017-08-07] MEDS: predniSONE 20 MG TABLET (UD) PO SCH ×2 (10:08→21:54)
[2017-08-07] MEDS: NICOTINE 7 MG/24 HOURS TOPICAL PATCH TD SCH (10:08)
[2017-08-07] MEDS: PANTOPRAZOLE SODIUM 40 MG VIAL IVPUSH SCH (10:08)
--- NOTE | 2017-08-07 10:59 | PN ---
Progress Note (short form) - Note Progress Note: Chief Complaint: Events noted notes reviewed, denies any chest pain, dyspnea improving, sinus rhythm noted History of Present Illness: Seen and examined on telemetry. Events noted notes reviewed, denies any chest pain, dyspnea improving, sinus rhythm noted Echocardiography dated 07/30/2017 revealed severe right sided dilation with moderate TR and severe pulmonary HTN - Current Medication List Current Medications Albuterol/Ipratropium (Duoneb -) 1 amp NEB Q4H PRN Last Admin: 08/06/17 22:05 Dose: 1 amp Amlodipine Besylate (Norvasc -) 5 mg PO DAILY [facility] Last Admin: 08/07/17 10:08 Dose: 5 mg Budesonide/Formoterol Fumarate (Symbicort 160/4.5mcg -) 2 puff IH BID [facility] Last Admin: 08/07/17 10:08 Dose: 2 puff Furosemide (Lasix Injection -) 40 mg IVPUSH DAILY [facility] Last Admin: 08/07/17 10:08 Dose: 40 mg Heparin Sodium (Porcine) (Heparin -) 5,000 unit SQ TID [facility] Last Admin: 08/07/17 06:32 Dose: 5,000 unit Nicotine (Nicoderm Patch -) 7 mg TD DAILY [facility] Last Admin: 08/07/17 10:08 Dose: 7 mg Pantoprazole Sodium (Protonix Iv) 40 mg IVPUSH DAILY [facility] Last Admin: 08/07/17 10:08 Dose: 40 mg Prednisone (Deltasone -) 40 mg PO BID [facility] Last Admin: 08/07/17 10:08 Dose: 40 mg Spironolactone (Aldactone -) 25 mg PO DAILY [facility] Last Admin: 08/07/17 10:08 Dose: 25 mg Valsartan (Diovan -) 80 mg PO DAILY [facility] Last Admin: 08/07/17 10:08 Dose: 80 mg Review of Systems Constitutional: denies Chills or Fever Respiratory: denies Cough or Sputum Production Cardiovascular: As noted above Gastrointestinal: denies Nausea, Vomiting, Diarrhea, Constipation or Abdominal Pain Genitourinary: No Symptoms Reported Musculoskeletal: No Symptoms Reported - Objective Vital Signs: Last Vital Signs Temp Pulse Resp BP Pulse Ox 97.9 F 83 22 142/62 95 08/07/17 06:47 08/07/17 06:47 08/07/17 06:47 08/07/17 06:47 08/07/17 11:16 Intake & Output 08/04/17 08/05/17 08/06/17 08/07/17 23:59 23:59 23:59 23:59 Intake Total 645 2030 710 200 Output Total 5400 4200 7100 1100 Balance -4755 -2170 -6390 -900 Weight 402 lb 5.498 oz 379 lb 14.4 oz 378 lb 7 oz Neck: Supple Negative JVD No Bruit Cardiovascular: S1 S2 Regular Rate and Rhythm Respiratory: Diminished Breath Sounds at the Bases Gastrointestinal: Soft Benign Normal Bowel Sounds Ext: Edema Labs: CBC, BMP 08/06/17 05:19 08/06/17 05:19 Assessment/Plan ASSESSMENT: 1. Acute hypoxemic/hypercapneic respiratory failure, post extubation, related to 2. Acute exacerbation of chronic obstructive pulmonary disease, resolved 3. Obesity/hypoventilation syndrome with 4. Severe pulmonary hypertension with cor pulmonale 5. Diastolic LV dysfunction with chronic class I NYHA classification LV congestive heart failure, compensated/euvolemic 6. Tobacco abuse PLAN: 1. Continue Lasix and Aldactone 2. Continue Diovan 3. Continue Norvasc 4. Continue Steroids and bronchodilators Camden Henson M.D.
--- NOTE | 2017-08-07 13:13 | PN ---
Physical Exam: SUBJECTIVE: Patient seen and examined Patient is better today family at bedside. OBJECTIVE: Vital Signs Temperature 97.9 F 08/07/17 06:47 Pulse Rate 83 08/07/17 06:47 Respiratory Rate 20 08/07/17 09:00 Blood Pressure 142/62 08/07/17 06:47 O2 Sat by Pulse Oximetry (%) 95 08/07/17 11:16 GENERAL: The patient is awake, alert, and fully oriented, in no acute distress. Morbidly obese. HEAD: Normal with no signs of trauma. EYES: PERRL, extraocular movements intact, sclera anicteric, conjunctiva clear. ENT: Ears normal, oropharynx clear without exudates, moist mucous membranes. NECK: Trachea midline, full range of motion, supple. LUNGS: decreased BS BL ,clear to auscultation bilaterally, no wheezes, no crackles, no accessory muscle use. Morbidly obese HEART: Regular rate and rhythm, S1, S2 without murmur, rub or gallop. ABDOMEN: Soft, nontender, nondistended, normoactive bowel sounds, no guarding, no rebound, no hepatosplenomegaly, no masses. EXTREMITIES: 2+ pulses, warm, well-perfused, no edema. NEUROLOGICAL: Cranial nerves II through XII grossly intact. Normal speech, patient is unable to ambulate due to obesity, gait not observed. PSYCH: Normal mood, normal affect. SKIN: Warm, dry, normal turgor, no rashes or lesions noted CBCD WBC 10.8 K/mm3 (4.0-10.0) H 08/06/17 05:19 RBC 5.93 M/mm3 (4.00-5.60) H 08/06/17 05:19 Hgb 15.0 GM/dL (11.7-16.9) 08/06/17 05:19 Hct 48.1 % (35.4-49) 08/06/17 05:19 MCV 81.1 fl (80-96) 08/06/17 05:19 MCHC 31.2 g/dl (32.0-35.9) L 08/06/17 05:19 RDW 17.1 % (11.9-15.9) H 08/06/17 05:19 Plt Count 132 K/MM3 (134-434) L 08/06/17 05:19 MPV 8.2 fl (7.5-11.1) 08/06/17 05:19 CMP Sodium 142 mmol/L (136-145) 08/06/17 05:19 Potassium 4.3 mmol/L (3.5-5.1) D 08/06/17 05:19 Chloride 94 mmol/L (98-107) L 08/06/17 05:19 Carbon Dioxide 38 mmol/L (21-32) H 08/06/17 05:19 Anion Gap 10 (8-16) 08/06/17 05:19 BUN 16 mg/dL (7-18) 08/06/17 05:19 Creatinine 0.7 mg/dL (0.7-1.3) 08/06/17 05:19 Creat Clearance w eGFR > 60 (>60) 08/01/17 04:00 Random Glucose 116 mg/dL (74-106) H 08/06/17 05:19 Calcium 8.4 mg/dL (8.5-10.1) L 08/06/17 05:19 Total Bilirubin 0.5 mg/dL (0.2-1.0) 08/01/17 04:00 AST 11 U/L (15-37) L D 08/01/17 04:00 ALT 26 U/L (12-78) D 08/01/17 04:00 Alkaline Phosphatase 66 U/L (45-117) D 08/01/17 04:00 Total Protein 5.7 g/dl (6.4-8.2) L 08/01/17 04:00 Albumin 2.8 g/dl (3.4-5.0) L 08/01/17 04:00 CARDIAC ENZYMES Creatine Kinase 93 IU/L (39-308) 07/29/17 20:18 Troponin I 0.03 ng/ml (0.00-0.05) 07/29/17 20:18 Home Medication List Medication Instructions Recorded Confirmed Type NK [No Known Home Medication] 07/29/17 07/29/17 History Active Medications Generic Name Dose Route Start Last Admin Trade Name Freq PRN Reason Stop Dose Admin Albuterol/Ipratropium 1 amp 08/05/17 16:56 08/06/17 22:05 Duoneb - NEB 1 amp Q4H PRN Administration Amlodipine Besylate 5 mg 08/06/17 10:00 08/07/17 10:08 Norvasc - PO 5 mg DAILY [facility] Administration Budesonide/Formoterol Fumarate 2 puff 08/05/17 22:00 08/07/17 10:08 Symbicort 160/4.5mcg - IH 2 puff BID [facility] Administration Furosemide 40 mg 08/07/17 10:00 08/07/17 10:08 Lasix Injection - IVPUSH 40 mg DAILY [facility] Administration Heparin Sodium (Porcine) 5,000 unit 08/05/17 22:00 08/07/17 06:32 Heparin - SQ 5,000 unit TID [facility] Administration Nicotine 7 mg 08/06/17 10:00 08/07/17 10:08 Nicoderm Patch - TD 7 mg DAILY [facility] Administration Pantoprazole Sodium 40 mg 08/06/17 10:00 08/07/17 10:08 Protonix Iv IVPUSH 40 mg DAILY [facility] Administration Prednisone 40 mg 08/06/17 09:15 08/07/17 10:08 Deltasone - PO 40 mg BID [facility] Administration Spironolactone 25 mg 08/06/17 10:00 08/07/17 10:08 Aldactone - PO 25 mg DAILY [facility] Administration Valsartan 80 mg 08/06/17 10:00 08/07/17 10:08 Diovan - PO 80 mg DAILY [facility] Administration A/P: Patient is a 52 y/o man with h/o morbid obesity , Childhood asthma and nicotine dependence who presented with SOB x 3 days and was found to have acute hypoxic hypercapnic respiratory failure # Acute hypoxic hypercapnic resp failure due to COPD exacerbation with morbid obesity can't r/o Pickwickian syndrome.sleep study as an outpatient recommended. Pulmonary is on the case. cont ceftriaxone and azithro empirically day 5 today # Acute COPD exacerbation on Nebulizer treatments completed Abx treatment. Rocephin/zithromax IV, continue IV steroid. # Pulmonary HTN ; R sided heart failure , possible L sided heart failure with no evidence of PNA # HTN: cont norvasc and valsartan # Nutrition : change to Glucerna since patient running high blood sugar HA1c in am. DVT Px: Heparin sq Visit type - Emergency Visit Emergency Visit: Yes ED Registration Date: 07/29/17 Care time: The patient presented to the Emergency Department on the above date and was hospitalized for further evaluation of their emergent condition. - New Patient This patient is new to me today: No - Critical Care Critical Care patient: No
--- NOTE | 2017-08-07 16:00 | PN ---
Progress Note (short form) - Note Progress Note: PULMONARY Breathing continues to improve. No cough or wheezing. Diuresing well. Last Vital Signs Temp Pulse Resp BP Pulse Ox 98.5 F 85 18 129/80 95 08/07/17 14:00 08/07/17 14:00 08/07/17 13:00 08/07/17 14:00 08/07/17 11:16 Intake & Output 08/04/17 08/05/17 08/06/17 08/07/17 23:59 23:59 23:59 23:59 Intake Total 645 2030 710 840 Output Total 5400 4200 7100 2700 Balance -4755 -2170 -6390 -1860 Weight 402 lb 5.498 oz 379 lb 14.4 oz 378 lb 7 oz Gen: NAD at rest Heart: RRR Lung: distant breath sounds Abd: soft, obese, nontender Ext: edema decreasing CBC, BMP 08/06/17 05:19 08/06/17 05:19 Active Medications Albuterol/Ipratropium (Duoneb -) 1 amp NEB Q4H PRN Last Admin: 08/06/17 22:05 Dose: 1 amp Amlodipine Besylate (Norvasc -) 5 mg PO DAILY [facility] Last Admin: 08/07/17 10:08 Dose: 5 mg Budesonide/Formoterol Fumarate (Symbicort 160/4.5mcg -) 2 puff IH BID [facility] Last Admin: 08/07/17 10:08 Dose: 2 puff Furosemide (Lasix Injection -) 40 mg IVPUSH DAILY [facility] Last Admin: 08/07/17 10:08 Dose: 40 mg Heparin Sodium (Porcine) (Heparin -) 5,000 unit SQ TID [facility] Last Admin: 08/07/17 14:09 Dose: 5,000 unit Nicotine (Nicoderm Patch -) 7 mg TD DAILY [facility] Last Admin: 08/07/17 10:08 Dose: 7 mg Pantoprazole Sodium (Protonix Iv) 40 mg IVPUSH DAILY [facility] Last Admin: 08/07/17 10:08 Dose: 40 mg Prednisone (Deltasone -) 40 mg PO BID [facility] Last Admin: 08/07/17 10:08 Dose: 40 mg Spironolactone (Aldactone -) 25 mg PO DAILY [facility] Last Admin: 08/07/17 10:08 Dose: 25 mg Valsartan (Diovan -) 80 mg PO DAILY [facility] Last Admin: 08/07/17 10:08 Dose: 80 mg A/P Acute on Chronic Hypoxic and Hypercapneic Respiratory Failure improving Acute COPD Exacerbation Morbid Obesity RANJIT/OHS Severe Pulmonary HTN Atelectasis r/o Pneumonia - completed empiric antibiotics - inhaled bronchodilators - prednisone taper - continue lasix - monitor urine output, creatinine - I/Os, daily weights - PO as tolerated - BiPAP at night and PRN during day - will likely need home O2, BiPAP - PT/rehab - DVT/GI prophylaxis
[2017-08-07] MEDS ORDERED: PT OWN MED DRAWER 7, Y5N ONE (21:34)
[2017-08-08] MEDS: HEPARIN NA (PORCINE) 5,000 UNITS/ML 1ML VIAL SQ SCH ×3 (05:43→22:01)
[2017-08-08] MEDS: predniSONE 20 MG TABLET (UD) PO SCH ×2 (09:40→22:01)
[2017-08-08] MEDS: NICOTINE 7 MG/24 HOURS TOPICAL PATCH TD SCH (09:40)
[2017-08-08] MEDS: PANTOPRAZOLE SODIUM 40 MG VIAL IVPUSH SCH (09:40)
[2017-08-08] MEDS: FUROSEMIDE 40 MG/4 ML INJECTABLE VIAL IVPUSH SCH (09:40)
[2017-08-08] MEDS: VALSARTAN 80 MG TABLET (UD) PO SCH (09:41)
[2017-08-08] MEDS: amLODIPine BESYLATE 5 MG TABLET (FP) PO SCH (09:41)
[2017-08-08] MEDS: BUDESONIDE/FORMETEROL FUMARATE 160/4.5 mcg INHALER IH SCH ×2 (09:42→22:27)
[2017-08-08] MEDS: SPIRONOLACTONE 25 MG TABLET (FP) PO SCH (09:42)
--- NOTE | 2017-08-08 10:28 | PN ---
Progress Note (short form) - Note Progress Note: Chief Complaint: Events noted notes reviewed, denies any chest pain, dyspnea continues to improve, sinus rhythm noted History of Present Illness: Seen and examined on telemetry. Events noted notes reviewed, denies any chest pain, dyspnea continues to improve, sinus rhythm noted Echocardiography dated 07/30/2017 revealed severe right sided dilation with moderate TR and severe pulmonary HTN - Current Medication List Current Medications Albuterol/Ipratropium (Duoneb -) 1 amp NEB Q4H PRN Last Admin: 08/06/17 22:05 Dose: 1 amp Amlodipine Besylate (Norvasc -) 5 mg PO DAILY [facility] Last Admin: 08/08/17 09:41 Dose: 5 mg Budesonide/Formoterol Fumarate (Symbicort 160/4.5mcg -) 2 puff IH BID [facility] Last Admin: 08/08/17 09:42 Dose: 2 puff Furosemide (Lasix Injection -) 40 mg IVPUSH DAILY [facility] Last Admin: 08/08/17 09:40 Dose: 40 mg Heparin Sodium (Porcine) (Heparin -) 5,000 unit SQ TID [facility] Last Admin: 08/08/17 05:43 Dose: 5,000 unit Nicotine (Nicoderm Patch -) 7 mg TD DAILY [facility] Last Admin: 08/08/17 09:40 Dose: 7 mg Pantoprazole Sodium (Protonix Iv) 40 mg IVPUSH DAILY [facility] Last Admin: 08/08/17 09:40 Dose: 40 mg Prednisone (Deltasone -) 40 mg PO BID [facility] Last Admin: 08/08/17 09:40 Dose: 40 mg Spironolactone (Aldactone -) 25 mg PO DAILY [facility] Last Admin: 08/08/17 09:42 Dose: 25 mg Valsartan (Diovan -) 80 mg PO DAILY [facility] Last Admin: 08/08/17 09:41 Dose: 80 mg Review of Systems Constitutional: denies Chills or Fever Respiratory: denies Cough or Sputum Production Cardiovascular: As noted above Gastrointestinal: denies Nausea, Vomiting, Diarrhea, Constipation or Abdominal Pain Genitourinary: No Symptoms Reported Musculoskeletal: No Symptoms Reported - Objective Vital Signs: Last Vital Signs Temp Pulse Resp BP Pulse Ox 97.5 F L 78 20 139/86 98 08/08/17 05:00 08/08/17 05:00 08/08/17 05:00 08/08/17 05:00 08/07/17 21:00 Intake & Output 08/05/17 08/06/17 08/07/17 08/08/17 23:59 23:59 23:59 23:59 Intake Total 2030 710 1390 10 Output Total 4200 7100 3400 300 Balance -2170 -6390 -2010 -290 Weight 402 lb 5.498 oz 379 lb 14.4 oz 378 lb 7 oz 376 lb 6.4 oz Neck: Supple Negative JVD No Bruit Cardiovascular: S1 S2 Regular Rate and Rhythm Respiratory: Diminished Breath Sounds at the Bases Gastrointestinal: Soft Benign Normal Bowel Sounds Ext: Edema Labs: CBC, BMP 08/06/17 05:19 08/06/17 05:19 Hepatic Panel Total Bilirubin 0.5 mg/dL (0.2-1.0) 08/01/17 04:00 AST 11 U/L (15-37) L D 08/01/17 04:00 ALT 26 U/L (12-78) D 08/01/17 04:00 Alkaline Phosphatase 66 U/L (45-117) D 08/01/17 04:00 Albumin 2.8 g/dl (3.4-5.0) L 08/01/17 04:00 Assessment/Plan ASSESSMENT: 1. Acute hypoxemic/hypercapneic respiratory failure, post extubation, related to 2. Acute exacerbation of chronic obstructive pulmonary disease, resolved 3. Obesity/hypoventilation syndrome with 4. Severe pulmonary hypertension with cor pulmonale 5. Diastolic LV dysfunction with chronic class I NYHA classification LV congestive heart failure, compensated/euvolemic 6. Tobacco abuse PLAN: 1. Continue Lasix and Aldactone 2. Continue Diovan and titrate dosage as tolerated, hemodynamics permitting 3. Continue Norvasc 4. Continue Steroids and bronchodilators Camden Henson M.D.
--- NOTE | 2017-08-08 12:32 | PN ---
Teaching Attending Note Name of Resident: Tera Figueroa ATTENDING PHYSICIAN STATEMENT I saw and evaluated the patient. I reviewed the resident's note and discussed the case with the resident. I agree with the resident's findings and plan as documented. SUBJECTIVE: OBJECTIVE: Vital Signs Temperature 97.8 F 08/08/17 09:00 Pulse Rate 112 H 08/08/17 11:47 Respiratory Rate 20 08/08/17 09:00 Blood Pressure 129/95 08/08/17 09:00 O2 Sat by Pulse Oximetry (%) 93 L 08/08/17 11:47 CBCD WBC 10.8 K/mm3 (4.0-10.0) H 08/06/17 05:19 RBC 5.93 M/mm3 (4.00-5.60) H 08/06/17 05:19 Hgb 15.0 GM/dL (11.7-16.9) 08/06/17 05:19 Hct 48.1 % (35.4-49) 08/06/17 05:19 MCV 81.1 fl (80-96) 08/06/17 05:19 MCHC 31.2 g/dl (32.0-35.9) L 08/06/17 05:19 RDW 17.1 % (11.9-15.9) H 08/06/17 05:19 Plt Count 132 K/MM3 (134-434) L 08/06/17 05:19 MPV 8.2 fl (7.5-11.1) 08/06/17 05:19 CMP Sodium 142 mmol/L (136-145) 08/06/17 05:19 Potassium 4.3 mmol/L (3.5-5.1) D 08/06/17 05:19 Chloride 94 mmol/L (98-107) L 08/06/17 05:19 Carbon Dioxide 38 mmol/L (21-32) H 08/06/17 05:19 Anion Gap 10 (8-16) 08/06/17 05:19 BUN 16 mg/dL (7-18) 08/06/17 05:19 Creatinine 0.7 mg/dL (0.7-1.3) 08/06/17 05:19 Creat Clearance w eGFR > 60 (>60) 08/01/17 04:00 Random Glucose 116 mg/dL (74-106) H 08/06/17 05:19 Calcium 8.4 mg/dL (8.5-10.1) L 08/06/17 05:19 Total Bilirubin 0.5 mg/dL (0.2-1.0) 08/01/17 04:00 AST 11 U/L (15-37) L D 08/01/17 04:00 ALT 26 U/L (12-78) D 08/01/17 04:00 Alkaline Phosphatase 66 U/L (45-117) D 08/01/17 04:00 Total Protein 5.7 g/dl (6.4-8.2) L 08/01/17 04:00 Albumin 2.8 g/dl (3.4-5.0) L 08/01/17 04:00 CARDIAC ENZYMES Creatine Kinase 93 IU/L (39-308) 07/29/17 20:18 Troponin I 0.03 ng/ml (0.00-0.05) 07/29/17 20:18 Current Medications Generic Name Dose Route Start Last Admin Trade Name Italo PRN Reason Stop Dose Admin Albuterol/Ipratropium 1 amp 08/05/17 16:56 08/06/17 22:05 Duoneb - NEB 1 amp Q4H PRN Administration Amlodipine Besylate 5 mg 08/06/17 10:00 08/08/17 09:41 Norvasc - PO 5 mg DAILY [facility] Administration Budesonide/Formoterol Fumarate 2 puff 08/05/17 22:00 08/08/17 09:42 Symbicort 160/4.5mcg - IH 2 puff BID [facility] Administration Furosemide 40 mg 08/07/17 10:00 08/08/17 09:40 Lasix Injection - IVPUSH 40 mg DAILY [facility] Administration Heparin Sodium (Porcine) 5,000 unit 08/05/17 22:00 08/08/17 05:43 Heparin - SQ 5,000 unit TID [facility] Administration Nicotine 7 mg 08/06/17 10:00 08/08/17 09:40 Nicoderm Patch - TD 7 mg DAILY [facility] Administration Pantoprazole Sodium 40 mg 08/06/17 10:00 08/08/17 09:40 Protonix Iv IVPUSH 40 mg DAILY [facility] Administration Prednisone 40 mg 08/06/17 09:15 08/08/17 09:40 Deltasone - PO 40 mg BID [facility] Administration Spironolactone 25 mg 08/06/17 10:00 08/08/17 09:42 Aldactone - PO 25 mg DAILY [facility] Administration Valsartan 160 mg 08/08/17 10:28 Diovan - PO DAILY [facility] Home Medications Medication Instructions Recorded NK [No Known Home Medication] 07/29/17 ASSESSMENT AND PLAN: Patient is a 52 y/o man with h/o morbid obesity , Childhood asthma and nicotine dependence who presented with SOB x 3 days and was found to have acute hypoxic hypercapnic respiratory failure # Acute hypoxic hypercapnic resp failure due to COPD exacerbation with morbid obesity requiring oxygen , continue oxygen. can't r/o Pickwickian syndrome.sleep study as an outpatient recommended. Pulmonary is on the case. s/ p IV antibiotic ceftriaxone and azithro empirically day 5 today # Acute COPD exacerbation on Nebulizer treatments completed Abx treatment. Rocephin/zithromax IV, continue IV steroid. # Pulmonary HTN ; R sided heart failure , possible L sided heart failure with no evidence of PNA # HTN: cont norvasc and valsartan # Nutrition : change to Glucerna since patient running high blood sugar HA1c in am. DVT Px: Heparin sq once stable , patient sgould go home w Bipap and oxygen
--- NOTE | 2017-08-08 15:28 | PN ---
Physical Exam: SUBJECTIVE: No acute events overnight. Continues to use BiPap at night. Family and pt curious about possible allergy to pistaccios. No complaints at this time OBJECTIVE: Vital Signs Period Temp Pulse Resp BP Sys/Melgoza Pulse Ox Last 24 Hr 97.5 F-98.5 F 71-112 18-20 123-139/69-95 93-98 GENERAL: NAD, bed elevated to 30 degrees HEENT: EOMI, NIDHI, no JVD noted LUNGS: CTA bilaterally, no wheezes, rhonchi, rales. Remains on NC HEART: Regular rate and rhythm, S1, S2 without murmur, rub or gallop. ABDOMEN: Soft, obese, nontender, nondistended, normoactive bowel sounds, no guarding EXTREMITIES: 2+ pitting edema to mid-lower leg; improved from prior exam. 2+ DP pulses bilaterally NEUROLOGICAL: Alert and orientedx3. Nonfocal SKIN: Warm, dry, no rashes or lesions noted Active Medications Generic Name Dose Route Start Last Admin Trade Name Freq PRN Reason Stop Dose Admin Albuterol/Ipratropium 1 amp 08/05/17 16:56 08/06/17 22:05 Duoneb - NEB 1 amp Q4H PRN Administration Amlodipine Besylate 5 mg 08/06/17 10:00 08/08/17 09:41 Norvasc - PO 5 mg DAILY [facility] Administration Budesonide/Formoterol Fumarate 2 puff 08/05/17 22:00 08/08/17 09:42 Symbicort 160/4.5mcg - IH 2 puff BID [facility] Administration Furosemide 40 mg 08/07/17 10:00 08/08/17 09:40 Lasix Injection - IVPUSH 40 mg DAILY [facility] Administration Heparin Sodium (Porcine) 5,000 unit 08/05/17 22:00 08/08/17 13:39 Heparin - SQ 5,000 unit TID [facility] Administration Nicotine 7 mg 08/06/17 10:00 08/08/17 09:40 Nicoderm Patch - TD 7 mg DAILY [facility] Administration Pantoprazole Sodium 40 mg 08/06/17 10:00 08/08/17 09:40 Protonix Iv IVPUSH 40 mg DAILY [facility] Administration Prednisone 40 mg 08/06/17 09:15 08/08/17 09:40 Deltasone - PO 40 mg BID [facility] Administration Spironolactone 25 mg 08/06/17 10:00 08/08/17 09:42 Aldactone - PO 25 mg DAILY [facility] Administration Valsartan 160 mg 08/08/17 10:28 Diovan - PO DAILY [facility] ASSESSMENT/PLAN: 1) Hypercapnic hypoxic respiratory failure --2/2 acute COPD exacerbation and hypoventilation vs. acute congestive heart dysfunction --Resolving --CPAP at night; pt tolerating --Titrate SpO2 >90% (currently on NC5L) --Prednisone 40mg PO BID, continue to taper --Lasix IVP 40mg BID; will transition to oral upon discharge --Symbicort to continue --Pulmonology on board --Sleep screen performed --Waiting for approval for BiPap for home 2) HTN --Norvasc 5mg qdaily --Diovan 80mg qDaily --Monitor BP --Lasix as above; Aldactone 25mg qDaily FEN: Fluids: Avoid IVF Electrolyte abnormalities: None Nutrition: Low fat/cholesterol diet PPX: DVT - Heparin 5000U SQ TID Deconditioning - Physical therapy Dispo: D/C planning, authorization for BiPap Visit type - Emergency Visit Emergency Visit: No - New Patient This patient is new to me today: No - Critical Care Critical Care patient: No
--- NOTE | 2017-08-08 15:50 | PN ---
Progress Note (short form) - Note Progress Note: PULMONARY Breathing continues to improve. No cough or wheezing. Diuresing well. Last Vital Signs Temp Pulse Resp BP Pulse Ox 97.8 F 112 H 20 129/95 93 L 08/08/17 09:00 08/08/17 11:47 08/08/17 09:00 08/08/17 09:00 08/08/17 11:47 Intake & Output 08/05/17 08/06/17 08/07/17 08/08/17 23:59 23:59 23:59 23:59 Intake Total 2030 710 1390 410 Output Total 4200 7100 3400 900 Balance -2170 -6390 -2010 -490 Weight 402 lb 5.498 oz 379 lb 14.4 oz 378 lb 7 oz 376 lb 6.4 oz Gen: NAD at rest Heart: RRR Lung: distant breath sounds Abd: soft, obese, nontender Ext: edema decreasing CBC, BMP 08/06/17 05:19 08/06/17 05:19 Active Medications Albuterol/Ipratropium (Duoneb -) 1 amp NEB Q4H PRN Last Admin: 08/06/17 22:05 Dose: 1 amp Amlodipine Besylate (Norvasc -) 5 mg PO DAILY [facility] Last Admin: 08/08/17 09:41 Dose: 5 mg Budesonide/Formoterol Fumarate (Symbicort 160/4.5mcg -) 2 puff IH BID [facility] Last Admin: 08/08/17 09:42 Dose: 2 puff Furosemide (Lasix Injection -) 40 mg IVPUSH DAILY [facility] Last Admin: 08/08/17 09:40 Dose: 40 mg Heparin Sodium (Porcine) (Heparin -) 5,000 unit SQ TID [facility] Last Admin: 08/08/17 13:39 Dose: 5,000 unit Nicotine (Nicoderm Patch -) 7 mg TD DAILY [facility] Last Admin: 08/08/17 09:40 Dose: 7 mg Pantoprazole Sodium (Protonix Iv) 40 mg IVPUSH DAILY [facility] Last Admin: 08/08/17 09:40 Dose: 40 mg Prednisone (Deltasone -) 40 mg PO BID [facility] Last Admin: 08/08/17 09:40 Dose: 40 mg Spironolactone (Aldactone -) 25 mg PO DAILY [facility] Last Admin: 08/08/17 09:42 Dose: 25 mg Valsartan (Diovan -) 160 mg PO DAILY [facility] A/P Acute on Chronic Hypoxic and Hypercapneic Respiratory Failure improving Acute COPD Exacerbation Morbid Obesity RANJIT/OHS Severe Pulmonary HTN Atelectasis r/o Pneumonia - completed empiric antibiotics - inhaled bronchodilators - prednisone taper, can change to daily dosing in AM - continue lasix, aldactone - monitor urine output, creatinine - I/Os, daily weights - PO as tolerated - BiPAP at night and PRN during day - will likely need home O2, BiPAP - PT/rehab - DVT/GI prophylaxis
[2017-08-09] MEDS: HEPARIN NA (PORCINE) 5,000 UNITS/ML 1ML VIAL SQ SCH ×3 (05:35→21:36)
--- NOTE | 2017-08-09 08:51 | PN ---
Physical Exam: SUBJECTIVE: Pt reports having a night sweat due to feeling warm yesterday. Pt attributes it to BiPap air temperature. Denies any overt chills. Pt's temperature has remained afebrile. No other complaints today. OBJECTIVE: Vital Signs Period Temp Pulse Resp BP Sys/Melgoza Pulse Ox Last 24 Hr 97.0 F-98.8 F 80-112 18-20 118-131/65-95 90-98 GENERAL: NAD, bed elevated while eating breakfast HEENT: EOMI, NIDHI, no JVD noted LUNGS: CTA bilaterally, no wheezes, rhonchi, rales. Remains on NC HEART: Regular rate and rhythm, S1, S2 without murmur, rub or gallop. ABDOMEN: Soft, obese, nontender, nondistended, normoactive bowel sounds, no guarding EXTREMITIES: 1+ pitting edema. 2+ DP pulses bilaterally NEUROLOGICAL: Alert and orientedx3. Nonfocal SKIN: Warm, dry, no rashes or lesions noted Active Medications Generic Name Dose Route Start Last Admin Trade Name Italo PRN Reason Stop Dose Admin Albuterol/Ipratropium 1 amp 08/05/17 16:56 08/06/17 22:05 Duoneb - NEB 1 amp Q4H PRN Administration Amlodipine Besylate 5 mg 08/06/17 10:00 08/08/17 09:41 Norvasc - PO 5 mg DAILY [facility] Administration Budesonide/Formoterol Fumarate 2 puff 08/05/17 22:00 08/08/17 22:27 Symbicort 160/4.5mcg - IH 2 puff BID [facility] Administration Furosemide 40 mg 08/07/17 10:00 08/08/17 09:40 Lasix Injection - IVPUSH 40 mg DAILY [facility] Administration Heparin Sodium (Porcine) 5,000 unit 08/05/17 22:00 08/09/17 05:35 Heparin - SQ 5,000 unit TID [facility] Administration Nicotine 7 mg 08/06/17 10:00 08/08/17 09:40 Nicoderm Patch - TD 7 mg DAILY [facility] Administration Pantoprazole Sodium 40 mg 08/06/17 10:00 08/08/17 09:40 Protonix Iv IVPUSH 40 mg DAILY [facility] Administration Prednisone 40 mg 08/06/17 09:15 08/08/17 22:01 Deltasone - PO 40 mg BID [facility] Administration Spironolactone 25 mg 08/06/17 10:00 08/08/17 09:42 Aldactone - PO 25 mg DAILY [facility] Administration Valsartan 160 mg 08/08/17 10:28 Diovan - PO DAILY [facility] ASSESSMENT/PLAN: 1) Hypercapnic hypoxic respiratory failure --2/2 acute COPD exacerbation and hypoventilation vs. acute congestive heart dysfunction --Resolving --CPAP at night; pt tolerating --Titrate SpO2 >90% (currently on NC5L) --Prednisone 40mg PO BID, continue to taper --Lasix IVP 40mg BID; will transition to oral upon discharge --Symbicort to continue --Pulmonology on board --Sleep screen performed --Waiting for approval for BiPap for home 2) HTN --Norvasc 5mg qdaily --Diovan 80mg qDaily --Monitor BP --Lasix as above; Aldactone 25mg qDaily FEN: Fluids: Avoid IVF Electrolyte abnormalities: None Nutrition: Low fat/cholesterol diet PPX: DVT - Heparin 5000U SQ TID Deconditioning - Physical therapy to continue. Dispo: D/C planning, authorization for BiPap Case discussed with Dr. Freddie Figueroa, DO - Internal Medicine PGY-1 Visit type - Emergency Visit Emergency Visit: No - New Patient This patient is new to me today: No - Critical Care Critical Care patient: No
[2017-08-09] MEDS: PANTOPRAZOLE SODIUM 40 MG VIAL IVPUSH SCH (11:03)
[2017-08-09] MEDS: FUROSEMIDE 40 MG/4 ML INJECTABLE VIAL IVPUSH SCH (11:03)
[2017-08-09] MEDS: predniSONE 20 MG TABLET (UD) PO SCH ×2 (11:04→21:36)
[2017-08-09] MEDS: BUDESONIDE/FORMETEROL FUMARATE 160/4.5 mcg INHALER IH SCH ×2 (11:04→22:59)
[2017-08-09] MEDS: NICOTINE 7 MG/24 HOURS TOPICAL PATCH TD SCH (11:04)
[2017-08-09] MEDS: SPIRONOLACTONE 25 MG TABLET (FP) PO SCH (11:04)
[2017-08-09] MEDS: VALSARTAN 80 MG TABLET (UD) PO SCH (11:04)
[2017-08-09] MEDS: amLODIPine BESYLATE 5 MG TABLET (FP) PO SCH (11:04)
--- NOTE | 2017-08-09 12:17 | PN ---
Progress Note, Physician History of Present Illness: PULMONARY ALERT,FEELING BETTER,-RESP DISTRESS - Current Medication List Current Medications: Active Medications Albuterol/Ipratropium (Duoneb -) 1 amp NEB Q4H PRN Last Admin: 08/06/17 22:05 Dose: 1 amp Amlodipine Besylate (Norvasc -) 5 mg PO DAILY [facility] Last Admin: 08/09/17 11:04 Dose: 5 mg Budesonide/Formoterol Fumarate (Symbicort 160/4.5mcg -) 2 puff IH BID [facility] Last Admin: 08/09/17 11:04 Dose: 2 puff Furosemide (Lasix Injection -) 40 mg IVPUSH DAILY [facility] Last Admin: 08/09/17 11:03 Dose: 40 mg Heparin Sodium (Porcine) (Heparin -) 5,000 unit SQ TID [facility] Last Admin: 08/09/17 05:35 Dose: 5,000 unit Nicotine (Nicoderm Patch -) 7 mg TD DAILY [facility] Last Admin: 08/09/17 11:04 Dose: 7 mg Pantoprazole Sodium (Protonix Iv) 40 mg IVPUSH DAILY [facility] Last Admin: 08/09/17 11:03 Dose: 40 mg Prednisone (Deltasone -) 40 mg PO BID [facility] Last Admin: 08/09/17 11:04 Dose: 40 mg Spironolactone (Aldactone -) 25 mg PO DAILY [facility] Last Admin: 08/09/17 11:04 Dose: 25 mg Valsartan (Diovan -) 160 mg PO DAILY [facility] Last Admin: 08/09/17 11:04 Dose: 160 mg - Objective Vital Signs: Vital Signs Temperature 97.4 F L 08/09/17 05:46 Pulse Rate 82 08/09/17 05:46 Respiratory Rate 18 08/09/17 05:46 Blood Pressure 131/72 08/09/17 05:46 O2 Sat by Pulse Oximetry (%) 90 L 08/09/17 03:48 Constitutional: Yes: Calm, Obese Eyes: Yes: WNL HENT: Yes: WNL Neck: Yes: WNL Cardiovascular: Yes: Regular Rate and Rhythm, S1, S2 Respiratory: Yes: Diminished Gastrointestinal: Yes: Normal Bowel Sounds, Soft Extremities: Yes: WNL Edema: Yes Labs: CBC, BMP 08/06/17 05:19 08/06/17 05:19 INR, PTT INR 1.17 (0.82-1.09) H 08/01/17 04:00 Problem List - Problems (1) Acute respiratory failure with hypoxia and hypercarbia Code(s): J96.01 - ACUTE RESPIRATORY FAILURE WITH HYPOXIA; J96.02 - ACUTE RESPIRATORY FAILURE WITH HYPERCAPNIA (2) Sleep apnea Code(s): G47.30 - SLEEP APNEA, UNSPECIFIED Qualifiers: Sleep apnea type: obstructive Qualified Code(s): G47.33 - Obstructive sleep apnea (adult) (pediatric) (3) Morbid obesity Code(s): E66.01 - MORBID (SEVERE) OBESITY DUE TO EXCESS CALORIES (4) COPD exacerbation Code(s): J44.1 - CHRONIC OBSTRUCTIVE PULMONARY DISEASE W (ACUTE) EXACERBATION (5) Allergic dermatitis, upper and lower eyelids, bilateral Code(s): H01.111 - ALLERGIC DERMATITIS OF RIGHT UPPER EYELID; H01.112 - ALLERGIC DERMATITIS OF RIGHT LOWER EYELID; H01.114 - ALLERGIC DERMATITIS OF LEFT UPPER EYELID; H01.115 - ALLERGIC DERMATITIS OF LEFT LOWER EYELID (6) Asthma Code(s): J45.909 - UNSPECIFIED ASTHMA, UNCOMPLICATED Qualifiers: Asthma severity: unspecified severity (7) Acute on chronic respiratory failure with hypoxia and hypercapnia Code(s): J96.21 - ACUTE AND CHRONIC RESPIRATORY FAILURE WITH HYPOXIA; J96.22 - ACUTE AND CHRONIC RESPIRATORY FAILURE WITH HYPERCAPNIA (8) Pulmonary HTN Code(s): I27.20 - PULMONARY HYPERTENSION, UNSPECIFIED (9) Cor pulmonale Code(s): I27.81 - COR PULMONALE (CHRONIC) Assessment/Plan ASSESSMENT AND PLAN: Acute on Chronic Hypoxic and Hypercapneic Respiratory Failure improving Acute COPD Exacerbation Morbid Obesity RANJIT/OHS severe Severe Pulmonary HTN Atelectasis r/o Pneumonia - inhaled bronchodilators- - prednisone taper - continue lasix - PO as tolerated - BiPAP at night and PRN during day - pt needs home O2, BiPAP - PT/rehab - DVT/GI prophylaxis DR BUCHANAN
--- NOTE | 2017-08-09 13:10 | PN ---
Progress Note, Physician Chief Complaint: Not in distress feels better History of Present Illness: Patient was seen and examined. Awake. Chart was reviewed Denies chest pain or palpitation. - Current Medication List Current Medications: Active Medications Albuterol/Ipratropium (Duoneb -) 1 amp NEB Q4H PRN Last Admin: 08/06/17 22:05 Dose: 1 amp Amlodipine Besylate (Norvasc -) 5 mg PO DAILY [facility] Last Admin: 08/09/17 11:04 Dose: 5 mg Budesonide/Formoterol Fumarate (Symbicort 160/4.5mcg -) 2 puff IH BID [facility] Last Admin: 08/09/17 11:04 Dose: 2 puff Furosemide (Lasix Injection -) 40 mg IVPUSH DAILY [facility] Last Admin: 08/09/17 11:03 Dose: 40 mg Heparin Sodium (Porcine) (Heparin -) 5,000 unit SQ TID [facility] Last Admin: 08/09/17 05:35 Dose: 5,000 unit Nicotine (Nicoderm Patch -) 7 mg TD DAILY [facility] Last Admin: 08/09/17 11:04 Dose: 7 mg Pantoprazole Sodium (Protonix Iv) 40 mg IVPUSH DAILY [facility] Last Admin: 08/09/17 11:03 Dose: 40 mg Prednisone (Deltasone -) 40 mg PO BID [facility] Last Admin: 08/09/17 11:04 Dose: 40 mg Spironolactone (Aldactone -) 25 mg PO DAILY [facility] Last Admin: 08/09/17 11:04 Dose: 25 mg Valsartan (Diovan -) 160 mg PO DAILY [facility] Last Admin: 08/09/17 11:04 Dose: 160 mg - Objective Vital Signs: Vital Signs Temperature 97.4 F L 08/09/17 05:46 Pulse Rate 82 08/09/17 05:46 Respiratory Rate 18 08/09/17 05:46 Blood Pressure 131/72 08/09/17 05:46 O2 Sat by Pulse Oximetry (%) 90 L 08/09/17 03:48 Neck: Yes: Supple Cardiovascular: Yes: Regular Rate and Rhythm, S1, S2. No: Murmur Respiratory: Yes: Diminished Gastrointestinal: Yes: Normal Bowel Sounds, Soft. No: Tenderness Edema: No Problem List - Problems (1) Acute respiratory failure with hypoxia and hypercarbia Code(s): J96.01 - ACUTE RESPIRATORY FAILURE WITH HYPOXIA; J96.02 - ACUTE RESPIRATORY FAILURE WITH HYPERCAPNIA (2) Sleep apnea Code(s): G47.30 - SLEEP APNEA, UNSPECIFIED Qualifiers: Sleep apnea type: obstructive Qualified Code(s): G47.33 - Obstructive sleep apnea (adult) (pediatric) (3) Morbid obesity Code(s): E66.01 - MORBID (SEVERE) OBESITY DUE TO EXCESS CALORIES (4) COPD exacerbation Code(s): J44.1 - CHRONIC OBSTRUCTIVE PULMONARY DISEASE W (ACUTE) EXACERBATION (5) Acute on chronic respiratory failure with hypoxia and hypercapnia Code(s): J96.21 - ACUTE AND CHRONIC RESPIRATORY FAILURE WITH HYPOXIA; J96.22 - ACUTE AND CHRONIC RESPIRATORY FAILURE WITH HYPERCAPNIA (6) Pulmonary HTN Code(s): I27.20 - PULMONARY HYPERTENSION, UNSPECIFIED (7) Cor pulmonale Code(s): I27.81 - COR PULMONALE (CHRONIC) Assessment/Plan 1. Acute on hypoxemic/hypercapneic respiratory failure currently on mechanical ventilator 2. Acute COPD exacerbation 3. Obesity/hypoventilation syndrome 4. Severe pulm HTN with cor pulmonale 5. Morbid obesity 6. OSAS suspect 7. Tobacco abuse PLAN: 1. Continue current management 2. Continue steroids with GI protection 3. Diuretics - Furosemide and Aldactone 4. DVT prophylaxis 5. Continue Amlodipine Guarded Further plans are to follow Velasquez Gaines MD
[2017-08-10] MEDS: HEPARIN NA (PORCINE) 5,000 UNITS/ML 1ML VIAL SQ SCH ×3 (06:06→21:13)
[2017-08-10] MEDS ORDERED: PT OWN MED DRAWER 7, Y5N ONE ×2 (09:19→21:04)
[2017-08-10] MEDS: amLODIPine BESYLATE 5 MG TABLET (FP) PO SCH (09:26)
[2017-08-10] MEDS: SPIRONOLACTONE 25 MG TABLET (FP) PO SCH (09:26)
[2017-08-10] MEDS: predniSONE 20 MG TABLET (UD) PO SCH (09:26)
[2017-08-10] MEDS: VALSARTAN 80 MG TABLET (UD) PO SCH (09:26)
[2017-08-10] MEDS: FUROSEMIDE 40 MG/4 ML INJECTABLE VIAL IVPUSH SCH (09:27)
[2017-08-10] MEDS: BUDESONIDE/FORMETEROL FUMARATE 160/4.5 mcg INHALER IH SCH ×2 (09:27→21:13)
[2017-08-10] MEDS: PANTOPRAZOLE SODIUM 40 MG VIAL IVPUSH SCH (09:27)
--- NOTE | 2017-08-10 12:42 | PN ---
Progress Note, Physician History of Present Illness: pulmonary awake,alert,nad,-sob on nasal o2 - Current Medication List Current Medications: Active Medications Albuterol/Ipratropium (Duoneb -) 1 amp NEB Q4H PRN Last Admin: 08/06/17 22:05 Dose: 1 amp Amlodipine Besylate (Norvasc -) 5 mg PO DAILY [facility] Last Admin: 08/10/17 09:26 Dose: 5 mg Budesonide/Formoterol Fumarate (Symbicort 160/4.5mcg -) 2 puff IH BID [facility] Last Admin: 08/10/17 09:27 Dose: 2 puff Furosemide (Lasix Injection -) 40 mg IVPUSH DAILY [facility] Last Admin: 08/10/17 09:27 Dose: 40 mg Heparin Sodium (Porcine) (Heparin -) 5,000 unit SQ TID [facility] Last Admin: 08/10/17 06:06 Dose: 5,000 unit Nicotine (Nicoderm Patch -) 7 mg TD DAILY [facility] Last Admin: 08/09/17 11:04 Dose: 7 mg Pantoprazole Sodium (Protonix Iv) 40 mg IVPUSH DAILY [facility] Last Admin: 08/10/17 09:27 Dose: 40 mg Prednisone (Deltasone -) 40 mg PO BID [facility] Last Admin: 08/10/17 09:26 Dose: 40 mg Spironolactone (Aldactone -) 25 mg PO DAILY [facility] Last Admin: 08/10/17 09:26 Dose: 25 mg Valsartan (Diovan -) 160 mg PO DAILY [facility] Last Admin: 08/10/17 09:26 Dose: 160 mg - Objective Vital Signs: Vital Signs Temperature 98.0 F 08/10/17 02:00 Pulse Rate 86 08/10/17 09:50 Respiratory Rate 18 08/10/17 02:00 Blood Pressure 142/74 08/10/17 02:00 O2 Sat by Pulse Oximetry (%) 91 L 08/10/17 09:50 Constitutional: Yes: Calm, Obese Eyes: Yes: WNL HENT: Yes: WNL Neck: Yes: WNL Cardiovascular: Yes: Regular Rate and Rhythm, S1, S2 Respiratory: Yes: Diminished Gastrointestinal: Yes: Normal Bowel Sounds, Soft Extremities: Yes: WNL Edema: Yes Labs: CBC, BMP Problem List - Problems (1) Acute respiratory failure with hypoxia and hypercarbia Code(s): J96.01 - ACUTE RESPIRATORY FAILURE WITH HYPOXIA; J96.02 - ACUTE RESPIRATORY FAILURE WITH HYPERCAPNIA (2) Sleep apnea Code(s): G47.30 - SLEEP APNEA, UNSPECIFIED Qualifiers: Sleep apnea type: obstructive Qualified Code(s): G47.33 - Obstructive sleep apnea (adult) (pediatric) (3) Morbid obesity Code(s): E66.01 - MORBID (SEVERE) OBESITY DUE TO EXCESS CALORIES (4) COPD exacerbation Code(s): J44.1 - CHRONIC OBSTRUCTIVE PULMONARY DISEASE W (ACUTE) EXACERBATION (5) Allergic dermatitis, upper and lower eyelids, bilateral Code(s): H01.111 - ALLERGIC DERMATITIS OF RIGHT UPPER EYELID; H01.112 - ALLERGIC DERMATITIS OF RIGHT LOWER EYELID; H01.114 - ALLERGIC DERMATITIS OF LEFT UPPER EYELID; H01.115 - ALLERGIC DERMATITIS OF LEFT LOWER EYELID (6) Asthma Code(s): J45.909 - UNSPECIFIED ASTHMA, UNCOMPLICATED Qualifiers: Asthma severity: unspecified severity (7) Acute on chronic respiratory failure with hypoxia and hypercapnia Code(s): J96.21 - ACUTE AND CHRONIC RESPIRATORY FAILURE WITH HYPOXIA; J96.22 - ACUTE AND CHRONIC RESPIRATORY FAILURE WITH HYPERCAPNIA (8) Pulmonary HTN Code(s): I27.20 - PULMONARY HYPERTENSION, UNSPECIFIED (9) Cor pulmonale Code(s): I27.81 - COR PULMONALE (CHRONIC) Assessment/Plan ASSESSMENT AND PLAN: Acute on Chronic Hypoxic and Hypercapneic Respiratory Failure improving Acute COPD Exacerbation improving Morbid Obesity RANJIT/OHS severe Severe Pulmonary HTN Atelectasis r/o Pneumonia - inhaled bronchodilators- - prednisone taper - continue lasix - PO as tolerated - BiPAP at night and PRN during day - pt needs home O2, BiPAP - PT/rehab - DVT/GI prophylaxis DR BUCHANAN
--- NOTE | 2017-08-10 14:14 | PN ---
Progress Note (short form) - Note Progress Note: Chief Complaint: Events noted notes reviewed, denies any chest pain, dyspnea continues to improve History of Present Illness: Seen and examined on telemetry. Events noted notes reviewed, denies any chest pain, dyspnea continues to improve Echocardiography dated 07/30/2017 revealed severe right sided dilation with moderate TR and severe pulmonary HTN - Current Medication List Current Medications Albuterol/Ipratropium (Duoneb -) 1 amp NEB Q4H PRN Last Admin: 08/06/17 22:05 Dose: 1 amp Amlodipine Besylate (Norvasc -) 5 mg PO DAILY [facility] Last Admin: 08/10/17 09:26 Dose: 5 mg Budesonide/Formoterol Fumarate (Symbicort 160/4.5mcg -) 2 puff IH BID [facility] Last Admin: 08/10/17 09:27 Dose: 2 puff Furosemide (Lasix Injection -) 40 mg IVPUSH DAILY [facility] Last Admin: 08/10/17 09:27 Dose: 40 mg Heparin Sodium (Porcine) (Heparin -) 5,000 unit SQ TID [facility] Last Admin: 08/10/17 06:06 Dose: 5,000 unit Nicotine (Nicoderm Patch -) 7 mg TD DAILY [facility] Last Admin: 08/09/17 11:04 Dose: 7 mg Pantoprazole Sodium (Protonix Iv) 40 mg IVPUSH DAILY [facility] Last Admin: 08/10/17 09:27 Dose: 40 mg Prednisone (Deltasone -) 40 mg PO BID [facility] Last Admin: 08/10/17 09:26 Dose: 40 mg Spironolactone (Aldactone -) 25 mg PO DAILY [facility] Last Admin: 08/10/17 09:26 Dose: 25 mg Valsartan (Diovan -) 160 mg PO DAILY [facility] Last Admin: 08/10/17 09:26 Dose: 160 mg Review of Systems Constitutional: denies Chills or Fever Respiratory: denies Cough or Sputum Production Cardiovascular: As noted above Gastrointestinal: denies Nausea, Vomiting, Diarrhea, Constipation or Abdominal Pain Genitourinary: No Symptoms Reported Musculoskeletal: No Symptoms Reported - Objective Vital Signs: Last Vital Signs Temp Pulse Resp BP Pulse Ox 98.4 F 86 18 134/87 91 L 08/10/17 08:00 08/10/17 09:50 08/10/17 08:00 08/10/17 08:00 08/10/17 09:50 Intake & Output 08/07/17 08/08/17 08/09/17 08/10/17 23:59 23:59 23:59 23:59 Intake Total 2624 743 8297 200 Output Total 3400 900 500 800 Balance -2009 30 620 -600 Weight 378 lb 7 oz 376 lb 6.4 oz 375 lb 375 lb Neck: Supple Negative JVD No Bruit Cardiovascular: S1 S2 Regular Rate and Rhythm Respiratory: Diminished Breath Sounds at the Bases Gastrointestinal: Soft Benign Normal Bowel Sounds Ext: Edema Labs: CBC, BMP 08/06/17 05:19 08/06/17 05:19 Assessment/Plan ASSESSMENT: 1. Acute hypoxemic/hypercapneic respiratory failure, post extubation, related to 2. Acute exacerbation of chronic obstructive pulmonary disease, resolved 3. Obesity/hypoventilation syndrome with 4. Severe pulmonary hypertension with cor pulmonale 5. Diastolic LV dysfunction with chronic class I NYHA classification LV congestive heart failure, compensated/euvolemic 6. Tobacco abuse PLAN: 1. Continue Lasix and Aldactone 2. Continue Diovan and titrate dosage as tolerated, hemodynamics permitting 3. Continue Norvasc 4. Continue Steroids and bronchodilators Camden Henson M.D.
--- NOTE | 2017-08-10 14:58 | PN ---
Physical Exam: SUBJECTIVE: Pt did not wear BiPap overnight; just nasal cannula. Pt denies any new complaints today. Pt reports physical therapy yesterday and was able to stand and took a few steps left and right. Still awaiting emergency medicaid authorizations. OBJECTIVE: Vital Signs Period Temp Pulse Resp BP Sys/Melgoza Pulse Ox Last 24 Hr 98.0 F-98.8 F 80-95 18-20 107-142/67-87 91-94 GENERAL: NAD, head of bed elevated HEENT: EOMI, NIDHI, no JVD noted LUNGS: CTA bilaterally, no wheezes, rhonchi, rales. Remains on NC HEART: RRR, S1, S2 without murmur ABDOMEN: Soft, obese, nontender, nondistended, normoactive bowel sounds, no guarding EXTREMITIES: Mild edema in lower extremities. Remains 2+ DP pulses bilaterally NEUROLOGICAL: Alert and orientedx3. Non-focal SKIN: Warm, dry, no rashes or lesions noted Active Medications Generic Name Dose Route Start Last Admin Trade Name Freq PRN Reason Stop Dose Admin Albuterol/Ipratropium 1 amp 08/05/17 16:56 08/06/17 22:05 Duoneb - NEB 1 amp Q4H PRN Administration Amlodipine Besylate 5 mg 08/06/17 10:00 08/10/17 09:26 Norvasc - PO 5 mg DAILY [facility] Administration Budesonide/Formoterol Fumarate 2 puff 08/05/17 22:00 08/10/17 09:27 Symbicort 160/4.5mcg - IH 2 puff BID [facility] Administration Furosemide 40 mg 08/07/17 10:00 08/10/17 09:27 Lasix Injection - IVPUSH 40 mg DAILY [facility] Administration Heparin Sodium (Porcine) 5,000 unit 08/05/17 22:00 08/10/17 06:06 Heparin - SQ 5,000 unit TID [facility] Administration Nicotine 7 mg 08/06/17 10:00 08/09/17 11:04 Nicoderm Patch - TD 7 mg DAILY [facility] Administration Pantoprazole Sodium 40 mg 08/06/17 10:00 08/10/17 09:27 Protonix Iv IVPUSH 40 mg DAILY [facility] Administration Prednisone 40 mg 08/11/17 10:00 Deltasone - PO DAILY [facility] Spironolactone 25 mg 08/06/17 10:00 08/10/17 09:26 Aldactone - PO 25 mg DAILY [facility] Administration Valsartan 160 mg 08/10/17 22:00 Diovan - PO BID [facility] ASSESSMENT/PLAN: 1) Hypercapnic hypoxic respiratory failure --2/2 acute COPD exacerbation and hypoventilation vs. acute congestive heart dysfunction --Resolving --CPAP at night ASDIR --Decreased Prednisone to 40mg qDAILY --continue Lasix 40mg IVP qDaily --Symbicort to continue --Pulmonology following --Pt will need at very minimum home oxygen --Awaiting authorization for emergency medicaid or other insurance so pt can have --Sleep screen performed; pt ideally would need CPAP/BiPap at night however insurance is an issue --Recommend formal sleep study on outpatient basis 2) HTN --Norvasc 5mg qdaily --Diovan 160mg qDaily --Monitor BP --Lasix as above; Aldactone 25mg qDaily FEN: Fluids: Avoid IVF Electrolyte abnormalities: None Nutrition: Low fat/cholesterol diet PPX: DVT - Heparin 5000U SQ TID Deconditioning - Physical therapy BID to continue Dispo: D/C planning, authorization for insurance Case discussed with Dr. Freddie Figueroa, DO - Internal Medicine PGY-1 Visit type - Emergency Visit Emergency Visit: No - New Patient This patient is new to me today: No - Critical Care Critical Care patient: No
--- NOTE | 2017-08-10 19:47 | PN ---
Teaching Attending Note Name of Resident: Tera Figueroa ATTENDING PHYSICIAN STATEMENT I saw and evaluated the patient. I reviewed the resident's note and discussed the case with the resident. I agree with the resident's findings and plan as documented. SUBJECTIVE: OBJECTIVE: Vital Signs Temperature 98.4 F 08/10/17 08:00 Pulse Rate 86 08/10/17 09:50 Respiratory Rate 18 08/10/17 08:00 Blood Pressure 134/87 08/10/17 08:00 O2 Sat by Pulse Oximetry (%) 91 L 08/10/17 09:50 CBCD WBC 10.8 K/mm3 (4.0-10.0) H 08/06/17 05:19 RBC 5.93 M/mm3 (4.00-5.60) H 08/06/17 05:19 Hgb 15.0 GM/dL (11.7-16.9) 08/06/17 05:19 Hct 48.1 % (35.4-49) 08/06/17 05:19 MCV 81.1 fl (80-96) 08/06/17 05:19 MCHC 31.2 g/dl (32.0-35.9) L 08/06/17 05:19 RDW 17.1 % (11.9-15.9) H 08/06/17 05:19 Plt Count 132 K/MM3 (134-434) L 08/06/17 05:19 MPV 8.2 fl (7.5-11.1) 08/06/17 05:19 CMP Sodium 142 mmol/L (136-145) 08/06/17 05:19 Potassium 4.3 mmol/L (3.5-5.1) D 08/06/17 05:19 Chloride 94 mmol/L (98-107) L 08/06/17 05:19 Carbon Dioxide 38 mmol/L (21-32) H 08/06/17 05:19 Anion Gap 10 (8-16) 08/06/17 05:19 BUN 16 mg/dL (7-18) 08/06/17 05:19 Creatinine 0.7 mg/dL (0.7-1.3) 08/06/17 05:19 Creat Clearance w eGFR > 60 (>60) 08/01/17 04:00 Random Glucose 116 mg/dL (74-106) H 08/06/17 05:19 Calcium 8.4 mg/dL (8.5-10.1) L 08/06/17 05:19 Total Bilirubin 0.5 mg/dL (0.2-1.0) 08/01/17 04:00 AST 11 U/L (15-37) L D 08/01/17 04:00 ALT 26 U/L (12-78) D 08/01/17 04:00 Alkaline Phosphatase 66 U/L (45-117) D 08/01/17 04:00 Total Protein 5.7 g/dl (6.4-8.2) L 08/01/17 04:00 Albumin 2.8 g/dl (3.4-5.0) L 08/01/17 04:00 CARDIAC ENZYMES Creatine Kinase 93 IU/L (39-308) 07/29/17 20:18 Troponin I 0.03 ng/ml (0.00-0.05) 07/29/17 20:18 Current Medications Generic Name Dose Route Start Last Admin Trade Name Italo PRN Reason Stop Dose Admin Albuterol/Ipratropium 1 amp 08/05/17 16:56 08/06/17 22:05 Duoneb - NEB 1 amp Q4H PRN Administration Amlodipine Besylate 5 mg 08/06/17 10:00 08/10/17 09:26 Norvasc - PO 5 mg DAILY [facility] Administration Budesonide/Formoterol Fumarate 2 puff 08/05/17 22:00 08/10/17 09:27 Symbicort 160/4.5mcg - IH 2 puff BID [facility] Administration Furosemide 40 mg 08/07/17 10:00 08/10/17 09:27 Lasix Injection - IVPUSH 40 mg DAILY [facility] Administration Heparin Sodium (Porcine) 5,000 unit 08/05/17 22:00 08/10/17 15:10 Heparin - SQ 5,000 unit TID [facility] Administration Nicotine 7 mg 08/06/17 10:00 08/09/17 11:04 Nicoderm Patch - TD 7 mg DAILY [facility] Administration Prednisone 40 mg 08/11/17 10:00 Deltasone - PO DAILY [facility] Spironolactone 25 mg 08/06/17 10:00 08/10/17 09:26 Aldactone - PO 25 mg DAILY [facility] Administration Valsartan 160 mg 08/10/17 22:00 Diovan - PO BID [facility] Home Medications Medication Instructions Recorded NK [No Known Home Medication] 07/29/17 ASSESSMENT AND PLAN: Patient is a 52 y/o man with h/o morbid obesity , Childhood asthma and nicotine dependence who presented with SOB x 3 days and was found to have acute hypoxic hypercapnic respiratory failure # Acute hypoxic hypercapnic resp failure due to COPD exacerbation with morbid obesity can't r/o Pickwickian syndrome.sleep study as an outpatient recommended. Pulmonary is on the case. cont ceftriaxone and azithro empirically day 5 today # Acute COPD exacerbation on Nebulizer treatments completed Abx treatment. Rocephin/zithromax IV, continue IV steroid. # Pulmonary HTN ; R sided heart failure , possible L sided heart failure with no evidence of PNA # HTN: cont norvasc and valsartan # Nutrition : change to Glucerna since patient running high blood sugar HA1c in am. DVT Px: Heparin sq waiting for papers emergency medicaid
[2017-08-10] MEDS: VALSARTAN 160 MG TABLET (UD) PO SCH (21:13)
[2017-08-10] MEDS: ALBUTEROL SO4 2.5/IPRATROPIUM 0.5 INH SOL 3 ML VIAL.NEB. NEB PRN (23:06)
[2017-08-11] MEDS: HEPARIN NA (PORCINE) 5,000 UNITS/ML 1ML VIAL SQ SCH ×3 (06:12→21:20)
[2017-08-11] MEDS ORDERED: PT OWN MED DRAWER 7, Y5N ONE ×3 (09:54→21:14)
[2017-08-11] MEDS: amLODIPine BESYLATE 5 MG TABLET (FP) PO SCH (10:00)
[2017-08-11] MEDS: FUROSEMIDE 40 MG/4 ML INJECTABLE VIAL IVPUSH SCH (10:00)
[2017-08-11] MEDS ORDERED: predniSONE 20 MG TABLET (UD) PO SCH (10:00)
[2017-08-11] MEDS: SPIRONOLACTONE 25 MG TABLET (FP) PO SCH (10:00)
[2017-08-11] MEDS: VALSARTAN 160 MG TABLET (UD) PO SCH ×2 (10:00→21:20)
[2017-08-11] MEDS: BUDESONIDE/FORMETEROL FUMARATE 160/4.5 mcg INHALER IH SCH ×2 (10:01→21:20)
[2017-08-11] MEDS: NICOTINE 7 MG/24 HOURS TOPICAL PATCH TD SCH (10:14)
--- NOTE | 2017-08-11 12:37 | PN ---
Progress Note (short form) - Note Progress Note: PULMONARY AWAKE/ALERT/OOB TO CHAIR APPEARS COMFORTABLE ON O2 HAS NOT FOLLOWED WITH PHYSICIANS RECENTLY ADMITTED REQUIRING ETT/MVV DUE TO PROGRESSIVE HYPERCAPNEIC/HYPOXEMIC RESP FAILURE NOW STABLE ON MEDICAL CARNEY VSS/AFEBRILE ANICTERIC DISTANT B/L BREATH SOUNDS S1S2 OBESE MINIMAL LOWER EXT EDEMA LABS/MEDS/NOTES/IMAGES/MICRO REVIEWED Acute on Chronic Hypoxic and Hypercapneic Respiratory Failure improved Acute COPD Exacerbation improved Morbid Obesity RANJIT/OHS severe(never had PSG) Severe Pulmonary HTN Atelectasis Pneumonia - inhaled bronchodilators- - prednisone taper - continue lasix - PO as tolerated - BiPAP at night and PRN during day - pt needs home O2, BiPAP,sleep study - PT/rehab - DVT/GI prophylaxis Jona BRAVO MD
[2017-08-11] MEDS: ALBUTEROL SO4 2.5/IPRATROPIUM 0.5 INH SOL 3 ML VIAL.NEB. NEB PRN (18:15)
--- NOTE | 2017-08-11 18:26 | PN ---
Teaching Attending Note Name of Resident: Tera Figueroa ATTENDING PHYSICIAN STATEMENT I saw and evaluated the patient. I reviewed the resident's note and discussed the case with the resident. I agree with the resident's findings and plan as documented. SUBJECTIVE: no fever or chills, no SOB, no cough or cp OBJECTIVE: AAOx3 . NAD CV: RRR, no MRG, distant heart sounds Lungs: CTAB Ext: trace edema on LE . ASSESSMENT AND PLAN: 52 y/o man with h/o morbid obesity , Childhood asthma and nicotine dependence who presented with SOB x 3 days and was found to have acute hypoxic hypercapnic resp failure 1- Acute hypoxic hypercapnic resp failure. resolved . extubated now on NC 2- Acute COPD exacerbation : improved - cont Nebs and inhalers - decrease prednisone dose to 30 mg daily starting tomorrow - social work help appreciated regarding insurance coverage for BIPAP 3- Acute R systolic sided heart failure , and possible L sided Diastolic heart failure . - cont IV lasix, - hopefully soon can switch to PO 4- RANJIT , and cor pulmonale . willneed Oxygen and BIPAP as outpt 5-HTN : cont valsartan and Norvasc 6- Dispo : d/w assistant branch manager . Insurance coverage to be figured out
--- NOTE | 2017-08-11 18:47 | PN ---
Physical Exam: SUBJECTIVE: No acute events overnight. Pt continues to use BiPap at night with good tolerance. Pt reports that phys therapy only came once yesterday. Pt has no complaints at this time. OBJECTIVE: Vital Signs Period Temp Pulse Resp BP Sys/Melgoza Pulse Ox Last 24 Hr 97.5 F-98.9 F 72-88 18-21 112-131/61-73 91-96 GENERAL: NAD, head of bed elevated HEENT: EOMI, NIDHI, no JVD noted LUNGS: CTA bilaterally, no wheezes, rhonchi, rales. Remains on NC HEART: RRR, S1, S2 without murmur ABDOMEN: Soft, obese, nontender, nondistended, normoactive bowel sounds, no guarding EXTREMITIES: Mild edema in lower extremities. Remains 2+ DP pulses bilaterally NEUROLOGICAL: Alert and orientedx3. Non-focal SKIN: Warm, dry, no rashes or lesions noted Active Medications Generic Name Dose Route Start Last Admin Trade Name Freq PRN Reason Stop Dose Admin Albuterol/Ipratropium 1 amp 08/05/17 16:56 08/11/17 18:15 Duoneb - NEB 1 amp Q4H PRN Administration Amlodipine Besylate 5 mg 08/06/17 10:00 08/11/17 10:00 Norvasc - PO 5 mg DAILY [facility] Administration Budesonide/Formoterol Fumarate 2 puff 08/05/17 22:00 08/11/17 10:01 Symbicort 160/4.5mcg - IH 2 puff BID [facility] Administration Furosemide 40 mg 08/07/17 10:00 08/11/17 10:00 Lasix Injection - IVPUSH 40 mg DAILY [facility] Administration Heparin Sodium (Porcine) 5,000 unit 08/05/17 22:00 08/11/17 14:38 Heparin - SQ 5,000 unit TID [facility] Administration Nicotine 7 mg 08/06/17 10:00 08/11/17 10:14 Nicoderm Patch - TD 7 mg DAILY [facility] Administration Prednisone 40 mg 08/11/17 10:00 08/11/17 10:01 Deltasone - PO 40 mg DAILY [facility] Administration Spironolactone 25 mg 08/06/17 10:00 08/11/17 10:00 Aldactone - PO 25 mg DAILY [facility] Administration Valsartan 160 mg 08/10/17 22:00 08/11/17 10:00 Diovan - PO 160 mg BID [facility] Administration ASSESSMENT/PLAN: 1) Hypercapnic hypoxic respiratory failure --2/2 acute COPD exacerbation and hypoventilation vs. acute congestive heart dysfunction --ARF Resolved 2) Acute COPD exacerbation --CPAP at night ASDIR --Decreased Prednisone to 30mg qDAILY for tomorrow --continue Lasix 40mg IVP qDaily; will keep for a couple more days than switch to PO --Symbicort to continue --Pulmonology following --Pt will need at very minimum home oxygen --Awaiting authorization for emergency medicaid or other insurance so pt can have --Sleep screen performed; pt ideally would need CPAP/BiPap at night however insurance is an issue --Recommend formal sleep study on outpatient basis 3) HTN --Norvasc 5mg qdaily --Diovan 160mg qDaily --Monitor BP --Lasix as above; Aldactone 25mg qDaily FEN: Fluids: Avoid IVF; tolerating diet Electrolyte abnormalities: None Nutrition: Low fat/cholesterol diet PPX: DVT - Heparin 5000U SQ TID Deconditioning - Physical therapy BID to continue Dispo: D/C planning, authorization for insurance Case discussed with Dr. Petra Figueroa, DO - Internal Medicine PGY-1 Visit type - Emergency Visit Emergency Visit: No - New Patient This patient is new to me today: No - Critical Care Critical Care patient: No
[2017-08-12] MEDS: HEPARIN NA (PORCINE) 5,000 UNITS/ML 1ML VIAL SQ SCH ×3 (06:38→21:10)
--- NOTE | 2017-08-12 07:30 | PN ---
Physical Exam: SUBJECTIVE: No acute events overnight. Continues to use BiPap. No other complaints. Eager to have PT today. OBJECTIVE: Vital Signs Period Temp Pulse Resp BP Sys/Melgoza Pulse Ox Last 24 Hr 97.5 F-98.9 F 80-89 18-21 119-131/61-72 95-96 GENERAL: NAD, head of bed elevated HEENT: EOMI, NIDHI, no JVD noted LUNGS: CTA bilaterally, no wheezes, rhonchi, rales. Remains on NC during day HEART: RRR, S1, S2 without murmur ABDOMEN: Soft, obese, nontender, nondistended, normoactive bowel sounds, no guarding EXTREMITIES: No edema in lower extremities. 2+ DP pulses bilaterally NEUROLOGICAL: Alert and orientedx3. Non-focal SKIN: Warm, dry, no rashes or lesions noted Active Medications Generic Name Dose Route Start Last Admin Trade Name Freq PRN Reason Stop Dose Admin Albuterol/Ipratropium 1 amp 08/05/17 16:56 08/11/17 18:15 Duoneb - NEB 1 amp Q4H PRN Administration Amlodipine Besylate 5 mg 08/06/17 10:00 08/11/17 10:00 Norvasc - PO 5 mg DAILY [facility] Administration Budesonide/Formoterol Fumarate 2 puff 08/05/17 22:00 08/11/17 21:20 Symbicort 160/4.5mcg - IH 2 puff BID [facility] Administration Furosemide 40 mg 08/07/17 10:00 08/11/17 10:00 Lasix Injection - IVPUSH 40 mg DAILY [facility] Administration Heparin Sodium (Porcine) 5,000 unit 08/05/17 22:00 08/12/17 06:38 Heparin - SQ 5,000 unit TID [facility] Administration Nicotine 7 mg 08/06/17 10:00 08/11/17 10:14 Nicoderm Patch - TD 7 mg DAILY [facility] Administration Prednisone 30 mg 08/11/17 21:27 Deltasone - PO DAILY [facility] Spironolactone 25 mg 08/06/17 10:00 08/11/17 10:00 Aldactone - PO 25 mg DAILY [facility] Administration Valsartan 160 mg 08/10/17 22:00 08/11/17 21:20 Diovan - PO 160 mg BID [facility] Administration ASSESSMENT/PLAN: 1) Hypercapnic hypoxic respiratory failure --2/2 acute COPD exacerbation and hypoventilation vs. acute congestive heart dysfunction --ARF Resolved 2) Acute COPD exacerbation --CPAP/BiPap at night ASDIR (IPAP 20, EPAP 10, FiO2 55) --Prednisone to 30mg qDAILY for tomorrow; continue to taper --continue Lasix 40mg IVP qDaily; will keep for a couple more days than switch to PO --Symbicort to continue --Pulmonology following --Pt will need at very minimum home oxygen --Awaiting authorization for emergency medicaid or other insurance so pt can have --Sleep screen performed; pt ideally would need CPAP/BiPap at night however insurance is an issue --Recommend formal sleep study on outpatient basis 3) HTN --Norvasc 5mg qdaily --Diovan 160mg qDaily --Monitor BP --Lasix as above; Aldactone 25mg qDaily FEN: Fluids: Avoid IVF; tolerating diet Electrolyte abnormalities: Lab Holiday today Nutrition: Low fat/cholesterol diet PPX: DVT - Heparin 5000U SQ TID Deconditioning - Physical therapy BID to continue Dispo: D/C planning, authorization for insurance Case discussed with Dr. Petra Figueroa, DO - Internal Medicine PGY-1 Visit type - Emergency Visit Emergency Visit: No - New Patient This patient is new to me today: No - Critical Care Critical Care patient: No
--- NOTE | 2017-08-12 08:52 | PN ---
Teaching Attending Note Name of Resident: Tera Figueroa ATTENDING PHYSICIAN STATEMENT I saw and evaluated the patient. I reviewed the resident's note and discussed the case with the resident. I agree with the resident's findings and plan as documented. SUBJECTIVE: no fever or chills. nO SOB , minimal cough OBJECTIVE: AAOx3 . NAD CV: RRR, no MRG Lungs: CTAB Ext: trace edema on LE . ASSESSMENT AND PLAN: 52 y/o man with h/o morbid obesity , Childhood asthma and nicotine dependence who presented with SOB x 3 days and was found to have acute hypoxic hypercapnic resp failure 1- Acute hypoxic hypercapnic resp failure. resolved . extubated now on NC 2- Acute COPD exacerbation : improved - cont Nebs and inhalers - day 1 of prednisone 30 mg. cont taper - Order pre-post ambulatory pulse ox . - d/w social worker clinical, regarding insurance coverage for BIPAP 3- Acute R systolic sided heart failure , and possible L sided Diastolic heart failure . - cont IV lasix, - hopefully soon can switch to PO 4- RANJIT , and cor pulmonale . will need Oxygen and BIPAP as outpt 5-HTN: cont valsartan and Norvasc 6- Dispo : D/W Social work, he is interested in rehab placement, will follow on PT eval, and insurance coverage . Anticipate being ready for dc in 1-2 days
[2017-08-12 09:42] LABS: ANION GAP 6 (8-16); CO2 35 mmol/L (21-32); CREATININE 0.6 mg/dL (0.7-1.3); GLUCOSE,RANDOM 115 mg/dL (74-106); MAGNESIUM 2.3 mg/dL (1.8-2.4); PHOSPHOROUS 3.2 mg/dL (2.5-4.9)
[2017-08-12] MEDS ORDERED: PT OWN MED DRAWER 7, Y5N ONE ×2 (10:18→21:08)
[2017-08-12] MEDS: BUDESONIDE/FORMETEROL FUMARATE 160/4.5 mcg INHALER IH SCH ×2 (10:28→21:10)
[2017-08-12] MEDS: amLODIPine BESYLATE 5 MG TABLET (FP) PO SCH (10:29)
[2017-08-12] MEDS: SPIRONOLACTONE 25 MG TABLET (FP) PO SCH (10:29)
[2017-08-12] MEDS: VALSARTAN 160 MG TABLET (UD) PO SCH ×2 (10:29→21:11)
[2017-08-12] MEDS: predniSONE 10 MG TABLET (UD) PO SCH (10:29)
[2017-08-12] MEDS: FUROSEMIDE 40 MG/4 ML INJECTABLE VIAL IVPUSH SCH (10:30)
[2017-08-12] MEDS: NICOTINE 7 MG/24 HOURS TOPICAL PATCH TD SCH (10:30)
--- NOTE | 2017-08-12 11:15 | PN ---
Progress Note (short form) - Note Progress Note: PULMONARY Breathing continues to improve. No cough or wheezing. Ambulating with PT. Last Vital Signs Temp Pulse Resp BP Pulse Ox 97.6 F 89 20 120/61 96 08/12/17 06:36 08/12/17 06:36 08/12/17 06:36 08/12/17 06:36 08/11/17 21:00 Intake & Output 08/09/17 08/10/17 08/11/17 08/12/17 23:59 23:59 23:59 23:59 Intake Total 1120 1700 1200 0 Output Total 500 1200 800 Balance 620 500 400 0 Weight 375 lb 375 lb 370 lb 367 lb 4 oz Gen: NAD at rest Heart: RRR Lung: distant breath sounds Abd: soft, obese, nontender Ext: edema decreasing CBC, BMP 08/06/17 05:19 08/12/17 08:30 Active Medications Albuterol/Ipratropium (Duoneb -) 1 amp NEB Q4H PRN Last Admin: 08/11/17 18:15 Dose: 1 amp Amlodipine Besylate (Norvasc -) 5 mg PO DAILY [facility] Last Admin: 08/12/17 10:29 Dose: 5 mg Budesonide/Formoterol Fumarate (Symbicort 160/4.5mcg -) 2 puff IH BID [facility] Last Admin: 08/12/17 10:28 Dose: 2 puff Furosemide (Lasix Injection -) 40 mg IVPUSH DAILY [facility] Last Admin: 08/12/17 10:30 Dose: 40 mg Heparin Sodium (Porcine) (Heparin -) 5,000 unit SQ TID [facility] Last Admin: 08/12/17 06:38 Dose: 5,000 unit Nicotine (Nicoderm Patch -) 7 mg TD DAILY [facility] Last Admin: 08/12/17 10:30 Dose: 7 mg Prednisone (Deltasone -) 30 mg PO DAILY [facility] Last Admin: 08/12/17 10:29 Dose: 30 mg Spironolactone (Aldactone -) 25 mg PO DAILY [facility] Last Admin: 08/12/17 10:29 Dose: 25 mg Valsartan (Diovan -) 160 mg PO BID [facility] Last Admin: 08/12/17 10:29 Dose: 160 mg A/P Acute on Chronic Hypoxic and Hypercapneic Respiratory Failure improving Acute COPD Exacerbation Morbid Obesity RANJIT/OHS Severe Pulmonary HTN Atelectasis r/o Pneumonia - completed antibiotics - inhaled bronchodilators - prednisone taper - continue lasix, aldactone - monitor urine output, creatinine - I/Os, daily weights - PO as tolerated - BiPAP at night and PRN during day - will need home O2, BiPAP - PT/rehab - DVT/GI prophylaxis
[2017-08-12] MEDS ORDERED: POTASSIUM CHLORIDE TABS 20 MEQ TABLET.ER (FP) PO ONE (12:30)
[2017-08-12] MEDS: FUROSEMIDE 40 MG TABLET (FP) PO SCH (14:25)
[2017-08-13] MEDS: HEPARIN NA (PORCINE) 5,000 UNITS/ML 1ML VIAL SQ SCH ×3 (05:24→21:30)
[2017-08-13] MEDS: ACETAMINOPHEN 325 MG TABLET (FP) PO PRN (05:44)
--- NOTE | 2017-08-13 07:59 | PN ---
Physical Exam: SUBJECTIVE: No acute events overnight. Pt continues to use BiPap at night. Pt reports his L knee hurting today however he attributes it to sitting in a chair too much and his chronic knee pain. Denies SOB, CP/discomfort, fever/chills. OBJECTIVE: Vital Signs Period Temp Pulse Resp BP Sys/Melgoza Pulse Ox Last 24 Hr 98.2 F-98.3 F 85-109 18-22 122-128/73-86 95-96 GENERAL: NAD, head of bed elevated HEENT: EOMI, NIDHI, no JVD noted LUNGS: CTA bilaterally, no wheezes, rhonchi, rales. Remains on NC during day HEART: RRR, S1, S2 without murmur ABDOMEN: Soft, obese, nontender, nondistended, normoactive bowel sounds, no guarding EXTREMITIES: No edema in lower extremities. 2+ DP pulses bilaterally NEUROLOGICAL: Alert and orientedx3. Non-focal SKIN: Warm, dry, no rashes or lesions noted Laboratory Results - last 24 hr 08/12/17 08:30 Sodium 140 Potassium 3.4 L D Chloride 99 Carbon Dioxide 35 H Anion Gap 6 L BUN 18 Creatinine 0.6 L Random Glucose 115 H Calcium 8.0 L Phosphorus 3.2 D Magnesium 2.3 Active Medications Generic Name Dose Route Start Last Admin Trade Name Freq PRN Reason Stop Dose Admin Acetaminophen 650 mg 08/13/17 05:26 08/13/17 05:44 Tylenol - PO 650 mg Q6H PRN Administration FEVER OR PAIN Albuterol/Ipratropium 1 amp 08/05/17 16:56 08/11/17 18:15 Duoneb - NEB 1 amp Q4H PRN Administration Amlodipine Besylate 5 mg 08/06/17 10:00 08/12/17 10:29 Norvasc - PO 5 mg DAILY MINDI Administration Budesonide/Formoterol Fumarate 2 puff 08/05/17 22:00 08/12/17 21:10 Symbicort 160/4.5mcg - IH 2 puff BID MINDI Administration Furosemide 40 mg 08/12/17 13:15 08/12/17 14:25 Lasix - PO 40 mg DAILY MINDI Administration Heparin Sodium (Porcine) 5,000 unit 08/05/17 22:00 08/13/17 05:24 Heparin - SQ 5,000 unit TID MINDI Administration Nicotine 7 mg 08/06/17 10:00 08/12/17 10:30 Nicoderm Patch - TD 7 mg DAILY MINDI Administration Prednisone 30 mg 08/11/17 21:27 08/12/17 10:29 Deltasone - PO 30 mg DAILY MINDI Administration Spironolactone 25 mg 08/06/17 10:00 08/12/17 10:29 Aldactone - PO 25 mg DAILY MINDI Administration Valsartan 160 mg 08/10/17 22:00 08/12/17 21:11 Diovan - PO 160 mg BID MINDI Administration ASSESSMENT/PLAN: 1) Hypercapnic hypoxic respiratory failure --2/2 acute COPD exacerbation and hypoventilation vs. acute congestive heart dysfunction --ARF Resolved 2) Acute COPD exacerbation --CPAP/BiPap at night ASDIR (IPAP 20, EPAP 10, FiO2 55) --Prednisone to 30mg qDAILY for today and then taper to Prednisone 20mg x2 days, then 10mgx2 days, then off --Symbicort to continue --Pulmonology following --Pt will need at very minimum home oxygen --Pre and post-ambulatory SpO2 recorded as pre: 91% and post: 88% --Recommendation of 2LNC with activity for the time being for home use --Sleep screen performed; pt ideally would need CPAP/BiPap at night however insurance is an issue --Recommend formal sleep study on outpatient basis --CBC with mild leukocytosis 2/2 prednisone usage 3) Acute exacerbation of CHF --Change to Lasix 40mg PO BID for normal maintenance 4) HTN --Norvasc 5mg qdaily --Diovan 160mg qDaily --Monitor BP --Lasix as above; Aldactone 25mg qDaily FEN: Fluids: Avoid IVF; tolerating diet Electrolyte abnormalities: None Nutrition: Low fat/cholesterol diet PPX: DVT - Heparin 5000U SQ TID Deconditioning - Physical therapy BID to continue; PT needs to check stairs due to patient having multiple stairs in household Dispo: D/C planning Case discussed with Dr. Petra Figueroa, DO - Internal Medicine PGY-1 Visit type - Emergency Visit Emergency Visit: No - New Patient This patient is new to me today: No - Critical Care Critical Care patient: No
[2017-08-13 08:13] LABS: BASOPHIL 0.7 % (0-2.0); EOSINOPHIL 0.8 % (0-4.5); MCHC 30.2 g/dl (32.0-35.9); MEAN CELL VOLUME 82.8 fl (80-96); MEAN PLT VOLUME 8.2 fl (7.5-11.1); NEUTROPHILS 76.5 % (42.8-82.8); PLATELET COUNT 151 K/MM3 (134-434); RDW 17.8 % (11.9-15.9); WHITE BLOOD COUNT 12.8 K/mm3 (4.0-10.0)
[2017-08-13 08:56] LABS: ANION GAP 5 (8-16); CALCIUM 8.1 mg/dL (8.5-10.1); CO2 35 mmol/L (21-32); CREATININE 0.6 mg/dL (0.7-1.3); GLUCOSE,RANDOM 111 mg/dL (74-106)
[2017-08-13] MEDS ORDERED: PT OWN MED DRAWER 7, Y5N ONE ×2 (09:15→21:25)
[2017-08-13] MEDS: SPIRONOLACTONE 25 MG TABLET (FP) PO SCH (09:16)
[2017-08-13] MEDS: VALSARTAN 160 MG TABLET (UD) PO SCH ×2 (09:16→21:30)
[2017-08-13] MEDS: FUROSEMIDE 40 MG TABLET (FP) PO SCH ×2 (09:16→13:01)
[2017-08-13] MEDS: predniSONE 10 MG TABLET (UD) PO SCH (09:16)
[2017-08-13] MEDS: amLODIPine BESYLATE 5 MG TABLET (FP) PO SCH (09:16)
[2017-08-13] MEDS: NICOTINE 7 MG/24 HOURS TOPICAL PATCH TD SCH (09:17)
[2017-08-13] MEDS: BUDESONIDE/FORMETEROL FUMARATE 160/4.5 mcg INHALER IH SCH ×2 (09:17→21:30)
--- NOTE | 2017-08-13 14:51 | PN ---
Progress Note (short form) - Note Progress Note: PULMONARY AWAKE/ALERT/OOB TO CHAIR APPEARS COMFORTABLE ON O2 WAIT HAS NOT DIMINISHED AND HE REMAINS IN POSITIVE FLUID BALANCE ADMITTED REQUIRING ETT/MVV DUE TO PROGRESSIVE HYPERCAPNEIC/HYPOXEMIC RESP FAILURE VSS/AFEBRILE ANICTERIC DISTANT B/L BREATH SOUNDS S1S2 OBESE MINIMAL LOWER EXT EDEMA LABS/MEDS/NOTES/IMAGES/MICRO REVIEWED Acute on Chronic Hypoxic and Hypercapneic Respiratory Failure improved Acute COPD Exacerbation improved Morbid Obesity RANJIT/OHS severe(never had PSG) Severe Pulmonary HTN Atelectasis Pneumonia - inhaled bronchodilators- - prednisone taper - continue lasix - PO as tolerated - BiPAP at night and PRN during day - pt needs home O2, BiPAP,sleep study - PT/rehab - DVT/GI prophylaxis - Diuretics Jona BRAVO MD
--- NOTE | 2017-08-13 14:57 | PN ---
Progress Note, Physician History of Present Illness: Dyspnea resolved. - Current Medication List Current Medications: Active Medications Acetaminophen (Tylenol -) 650 mg PO Q6H PRN PRN Reason: FEVER OR PAIN Last Admin: 08/13/17 05:44 Dose: 650 mg Albuterol/Ipratropium (Duoneb -) 1 amp NEB Q4H PRN Last Admin: 08/11/17 18:15 Dose: 1 amp Amlodipine Besylate (Norvasc -) 5 mg PO DAILY [facility] Last Admin: 08/13/17 09:16 Dose: 5 mg Budesonide/Formoterol Fumarate (Symbicort 160/4.5mcg -) 2 puff IH BID [facility] Last Admin: 08/13/17 09:17 Dose: 2 puff Furosemide (Lasix -) 40 mg PO BIDLASIX [facility] Last Admin: 08/13/17 13:01 Dose: 40 mg Heparin Sodium (Porcine) (Heparin -) 5,000 unit SQ TID [facility] Last Admin: 08/13/17 13:01 Dose: 5,000 unit Nicotine (Nicoderm Patch -) 7 mg TD DAILY [facility] Last Admin: 08/13/17 09:17 Dose: 7 mg Prednisone (Deltasone -) 10 mg PO DAILY [facility] Stop: 08/17/17 10:01 Prednisone (Deltasone -) 20 mg PO DAILY [facility] Stop: 08/15/17 10:01 Spironolactone (Aldactone -) 25 mg PO DAILY [facility] Last Admin: 08/13/17 09:16 Dose: 25 mg Valsartan (Diovan -) 160 mg PO BID [facility] Last Admin: 08/13/17 09:16 Dose: 160 mg - Objective Vital Signs: Vital Signs Temperature 98.2 F 08/13/17 08:42 Pulse Rate 91 H 08/13/17 10:59 Respiratory Rate 18 08/13/17 08:42 Blood Pressure 133/78 08/13/17 08:42 O2 Sat by Pulse Oximetry (%) 93 L 08/13/17 10:59 Constitutional: Yes: No Distress, Calm Neck: Yes: Supple Cardiovascular: Yes: Regular Rate and Rhythm Respiratory: Yes: Regular, Diminished, On Nasal O2 Gastrointestinal: Yes: Normal Bowel Sounds, Soft, Abdomen, Obese Edema: Yes Labs: CBC, BMP 08/13/17 08:08 08/13/17 08:08 INR, PTT INR 1.17 (0.82-1.09) H 08/01/17 04:00 Problem List - Problems (1) Sleep apnea Code(s): G47.30 - SLEEP APNEA, UNSPECIFIED Qualifiers: Sleep apnea type: obstructive Qualified Code(s): G47.33 - Obstructive sleep apnea (adult) (pediatric) (2) Morbid obesity Code(s): E66.01 - MORBID (SEVERE) OBESITY DUE TO EXCESS CALORIES (3) COPD exacerbation Code(s): J44.1 - CHRONIC OBSTRUCTIVE PULMONARY DISEASE W (ACUTE) EXACERBATION (4) Asthma Code(s): J45.909 - UNSPECIFIED ASTHMA, UNCOMPLICATED Qualifiers: Asthma severity: unspecified severity (5) Acute on chronic respiratory failure with hypoxia and hypercapnia Code(s): J96.21 - ACUTE AND CHRONIC RESPIRATORY FAILURE WITH HYPOXIA; J96.22 - ACUTE AND CHRONIC RESPIRATORY FAILURE WITH HYPERCAPNIA (6) Pulmonary HTN Code(s): I27.20 - PULMONARY HYPERTENSION, UNSPECIFIED (7) Cor pulmonale Code(s): I27.81 - COR PULMONALE (CHRONIC) (8) Diastolic dysfunction Code(s): I51.9 - HEART DISEASE, UNSPECIFIED Assessment/Plan 1. Acute on hypoxemic/hypercapneic respiratory failure improved 2. Acute COPD exacerbation improved 3. Obesity/hypoventilation syndrome 4. Severe pulm HTN with cor pulmonale 5. Morbid obesity 6. OSAS suspect 7. Tobacco abuse PLAN: 1. Continue BD, steroid taper with GI protection, O2 as needed, BiPAP at night and PRN during day 2. Diuretics - Furosemide 40 bid and Aldactone 25 qd 3. DVT prophylaxis 4. Continue Amlodipine 5 qd and Diovan 160 bid 5. PT->SNF, PSG as outpatient
--- NOTE | 2017-08-13 18:26 | PN ---
Teaching Attending Note Name of Resident: Tera Figueroa ATTENDING PHYSICIAN STATEMENT I saw and evaluated the patient. I reviewed the resident's note and discussed the case with the resident. I agree with the resident's findings and plan as documented. SUBJECTIVE: no fever or chills. has no SOB . has chronic knee pain which is now worse OBJECTIVE: AAOx3. NAD CV: RRR, no MRG Lungs: CTAB Ext: trace edema on LE . ASSESSMENT AND PLAN: 52 y/o man with h/o morbid obesity , Childhood asthma and nicotine dependence who presented with SOB x 3 days and was found to have acute hypoxic hypercapnic resp failure 1- Acute hypoxic hypercapnic resp failure. resolved . 2- Acute COPD exacerbation : improved - cont Nebs and inhalers - day 2 of prednisone 30 mg. decrease to 20 mg tomorrow - Pre -post ambulation pulse ox , indicated need of 2 L with ambulation only 3- Acute R systolic sided heart failure, and possible L sided Diastolic heart failure . - switch to po lasix 40 BID today 4- RANJIT , and cor pulmonale . will need Oxygen and BIPAP as outpt 5-HTN: cont valsartan and Norvasc 6- Dispo : D/W Social work, cont PT for now , to improve mobility on stairs . cost of O2 and Bipap was d/w him. will dc home when mobility improves for a safe DC
[2017-08-14] MEDS: HEPARIN NA (PORCINE) 5,000 UNITS/ML 1ML VIAL SQ SCH ×3 (06:47→21:11)
[2017-08-14] MEDS: FUROSEMIDE 40 MG TABLET (FP) PO SCH ×2 (06:47→13:35)
[2017-08-14] MEDS ORDERED: PT OWN MED DRAWER 7, Y5N ONE ×2 (09:57→21:05)
--- NOTE | 2017-08-14 09:58 | PN ---
Teaching Attending Note Name of Resident: Katerine Grimaldo ATTENDING PHYSICIAN STATEMENT I saw and evaluated the patient. I reviewed the resident's note and discussed the case with the resident. I agree with the resident's findings and plan as documented. SUBJECTIVE: no fever or chills. has no cough or abd pain. had BM yesterday . NO SOB OBJECTIVE: AAOx3. NAD CV: RRR, no MRG Lungs: CTAB Ext: trace edema on LE. ASSESSMENT AND PLAN: 52 y/o man with h/o morbid obesity , Childhood asthma and nicotine dependence who presented with SOB x 3 days and was found to have acute hypoxic hypercapnic resp failure 1- Acute hypoxic hypercapnic resp failure. resolved . 2- Acute COPD exacerbation : improved. - cont Nebs and inhalers - day 1 of prednisone 20 mg. cont to taper - Pre -post ambulation pulse ox , indicated need of 2 L with ambulation only . - discussed cost with patient , he can afford to pay for it 3- Acute R systolic sided heart failure, and possible L sided Diastolic heart failure . - sCOnt lasix 40 BID orally 4- RANJIT , and cor pulmonale . will need Oxygen and BIPAP as outpt . he agrees to pay for both 5-HTN: cont valsartan and Norvasc 6- Dispo : D/W Social work. dc pending improved performance with PT. O2 is not set yet. will need to wait for this for a safe dc . Probable Wednesday DC
[2017-08-14] MEDS: VALSARTAN 160 MG TABLET (UD) PO SCH ×2 (09:59→21:12)
[2017-08-14] MEDS: predniSONE 10 MG TABLET (UD) PO SCH (09:59)
[2017-08-14] MEDS: amLODIPine BESYLATE 5 MG TABLET (FP) PO SCH (09:59)
[2017-08-14] MEDS: SPIRONOLACTONE 25 MG TABLET (FP) PO SCH (10:00)
[2017-08-14] MEDS: NICOTINE 7 MG/24 HOURS TOPICAL PATCH TD SCH (10:00)
[2017-08-14] MEDS: BUDESONIDE/FORMETEROL FUMARATE 160/4.5 mcg INHALER IH SCH ×2 (10:01→21:12)
[2017-08-14] MEDS: ACETAMINOPHEN 325 MG TABLET (FP) PO PRN (10:03)
[2017-08-14 10:09] LABS: MCH 24.7 pg (25.7-33.7); MCHC 29.9 g/dl (32.0-35.9); MEAN CELL VOLUME 82.5 fl (80-96); MEAN PLT VOLUME 8.8 fl (7.5-11.1); PLATELET COUNT 107 K/MM3 (134-434); RDW 18.1 % (11.9-15.9); WHITE BLOOD COUNT 11.6 K/mm3 (4.0-10.0)
--- NOTE | 2017-08-14 14:11 | PN ---
Physical Exam: SUBJECTIVE: Patient seen and examined by me at bedside. No overnight events noted. Patient offers no complaints and reports "feeling better by the day." Otherwise, patient denies any fever, chills, nausea, vomiting, abdominal pain, chest pain, palpitations, headaches, acute vision changes. OBJECTIVE: Vital Signs Period Temp Pulse Resp BP Sys/Melgoza Pulse Ox Last 24 Hr 97.5 F-98.6 F 67-96 16-22 115-146/60-83 92-94 GENERAL: The patient is awake, alert, and fully oriented, in no acute distress. EYES: Sclera anicteric, conjunctiva clear. ENT: Oropharynx clear without exudates, moist mucous membranes. LUNGS: Breath sounds equal, clear to auscultation bilaterally, no wheezes, no crackles, no accessory muscle use. HEART: Regular rate and rhythm, without murmur, rub or gallop. ABDOMEN: Soft, obese, nontender, nondistended, normoactive bowel sounds, no guarding, no rebound. EXTREMITIES: No edema. NEUROLOGICAL: Cranial nerves II through XII grossly intact. Normal speech. Motor strength 5/5 bilaterally. Sensory intact. No facial droop PSYCH: Normal mood, normal affect. Laboratory Results - last 24 hr 08/14/17 08:53 WBC 11.6 H RBC 5.58 Hgb 13.8 Hct 46.1 MCV 82.5 MCH 24.7 L MCHC 29.9 L RDW 18.1 H Plt Count 107 L D MPV 8.8 Active Medications Generic Name Dose Route Start Last Admin Trade Name Freq PRN Reason Stop Dose Admin Acetaminophen 650 mg 08/13/17 05:26 08/14/17 10:03 Tylenol - PO 650 mg Q6H PRN Administration FEVER OR PAIN Albuterol/Ipratropium 1 amp 08/05/17 16:56 08/11/17 18:15 Duoneb - NEB 1 amp Q4H PRN Administration Amlodipine Besylate 5 mg 08/06/17 10:00 08/14/17 09:59 Norvasc - PO 5 mg DAILY MINDI Administration Budesonide/Formoterol Fumarate 2 puff 08/05/17 22:00 08/14/17 10:01 Symbicort 160/4.5mcg - IH 2 puff BID MINDI Administration Furosemide 40 mg 08/13/17 14:00 08/14/17 13:35 Lasix - PO 40 mg BIDLASIX MINDI Administration Heparin Sodium (Porcine) 5,000 unit 08/05/17 22:00 08/14/17 13:35 Heparin - SQ 5,000 unit TID MINDI Administration Nicotine 7 mg 08/06/17 10:00 08/14/17 10:00 Nicoderm Patch - TD 7 mg DAILY MINDI Administration Prednisone 10 mg 08/16/17 10:00 Deltasone - PO 08/17/17 10:01 DAILY MINDI Prednisone 20 mg 08/14/17 10:00 08/14/17 09:59 Deltasone - PO 08/15/17 10:01 20 mg DAILY MINDI Administration Spironolactone 25 mg 08/06/17 10:00 08/14/17 10:00 Aldactone - PO 25 mg DAILY MINDI Administration Valsartan 160 mg 08/10/17 22:00 08/14/17 09:59 Diovan - PO 160 mg BID MINDI Administration ASSESSMENT/PLAN: Patient is a 52 year old male who presented with shortness of breath and was found to have hypoxic hypercapnic respiratory failure. Patient admitted for further monitoring and management. Acute Hypoxic Hypercapnic Respiratory Failure- Resolved -Patient now on 3L O2 NC and BIPAP at night Acute on Chronic COPD Exacerbation- Improving -Patient started today on Prednisone 20mg daily for 2 days and then continue to taper -Continue Symbicort 2 Puffs BID -Continue Duo-Neb Q4H PRN -Continue to monitor 02 Acute Right Systolic CHF with possible Diastolic CHF -Continue Lasix 40mg BID PO Obstructive Sleep Apnea with Cor Pulmonale -Continue 02 and BIPAP at night -Patient currently requires 2L @home when ambulating HTN-controlled -Continue with aldactone 25mg daily -Continue Valsartan 160mg BID -Continu with Amlodipine 5mg daily Nicotine Dependence -Continue nicoderm patch 7mg daily F/E/N -On no fluids -Electrolytes wnl -Sodium controlled diet Prophylaxis -Continu Heparin 5000 units SQ Q8H -No GI required Disposition -Full code -Discharge pending PT and safe requirement for 02 at home. Will likely be discharged within two days Visit type - Emergency Visit Emergency Visit: Yes ED Registration Date: 07/29/17 Care time: The patient presented to the Emergency Department on the above date and was hospitalized for further evaluation of their emergent condition. - New Patient This patient is new to me today: Yes Date on this admission: 08/14/17 - Critical Care Critical Care patient: No
[2017-08-15] MEDS: HEPARIN NA (PORCINE) 5,000 UNITS/ML 1ML VIAL SQ SCH ×3 (05:50→21:22)
[2017-08-15] MEDS: FUROSEMIDE 40 MG TABLET (FP) PO SCH ×2 (05:50→14:52)
[2017-08-15 08:47] LABS: BASOPHIL 0.3 % (0-2.0); MCH 24.9 pg (25.7-33.7); MCHC 30.3 g/dl (32.0-35.9); MEAN CELL VOLUME 82.2 fl (80-96); NEUTROPHILS 74.7 % (42.8-82.8); PLATELET COUNT 148 K/MM3 (134-434); RDW 17.7 % (11.9-15.9); WHITE BLOOD COUNT 11.1 K/mm3 (4.0-10.0)
[2017-08-15] MEDS: SPIRONOLACTONE 25 MG TABLET (FP) PO SCH (09:25)
[2017-08-15] MEDS: predniSONE 10 MG TABLET (UD) PO SCH (09:26)
[2017-08-15] MEDS: VALSARTAN 160 MG TABLET (UD) PO SCH ×2 (09:26→21:22)
[2017-08-15] MEDS: NICOTINE 7 MG/24 HOURS TOPICAL PATCH TD SCH (09:27)
[2017-08-15] MEDS: amLODIPine BESYLATE 5 MG TABLET (FP) PO SCH (09:27)
[2017-08-15] MEDS: BUDESONIDE/FORMETEROL FUMARATE 160/4.5 mcg INHALER IH SCH ×2 (09:27→21:22)
--- NOTE | 2017-08-15 11:49 | PN ---
Progress Note (short form) - Note Progress Note: Subjective: No SOB , no pain, no fever or chills. Objective: Vital Signs: Last Vital Signs Temp Pulse Resp BP Pulse Ox 98.3 F 85 18 118/71 92 L 08/15/17 10:00 08/15/17 10:00 08/15/17 10:00 08/15/17 10:00 08/15/17 09:32 Laboratory Results - last 24 hr 08/15/17 07:30 WBC 11.1 H RBC 5.70 H Hgb 14.2 Hct 46.9 MCV 82.2 MCH 24.9 L MCHC 30.3 L RDW 17.7 H Plt Count 148 D MPV 8.0 Neutrophils % 74.7 Lymphocytes % 15.7 D Monocytes % 8.3 Eosinophils % 1.0 Basophils % 0.3 Intake & Output 08/12/17 08/13/17 08/14/17 08/15/17 23:59 23:59 23:59 23:59 Intake Total 1600 1150 900 0 Output Total 1750 1100 650 Balance 1600 -600 -200 -650 Weight 367 lb 4 oz 377 lb 11.2 oz 367 lb 9.6 oz 372 lb 5 oz Physical Exam: AAOx3. NAD CV: RRR, no MRG Lungs: CTAB Ext: 1+ edema on LE. ASSESSMENT AND PLAN: 52 y/o man with h/o morbid obesity , Childhood asthma and nicotine dependence who presented with SOB x 3 days and was found to have acute hypoxic hypercapnic resp failure 1- Acute hypoxic hypercapnic resp failure. resolved . 2- Acute COPD exacerbation : improved. - cont Nebs and inhalers - day 2 of prednisone 20 mg. cont to taper - Pre -post ambulation pulse ox , indicated need of 2 L with ambulation . Now O2 Sats are 90 on 3 L . so he will need O2 at rest too - pt is agreeable to pay for his Oxygen 3- Acute R systolic sided heart failure, and possible L sided Diastolic heart failure . - COnt lasix 40 BID orally 4- RANJIT , and cor pulmonale . will need Oxygen and BIPAP as outpt . he agrees to pay for both 5-HTN: cont valsartan and Norvasc 6- Dispo : D/W Social work. POssibel dc tomorrow . O2 and BIPAP to be arranged Visit type - Emergency Visit Emergency Visit: Yes ED Registration Date: 07/29/17 Care time: The patient presented to the Emergency Department on the above date and was hospitalized for further evaluation of their emergent condition. - New Patient This patient is new to me today: No - Critical Care Critical Care patient: No
[2017-08-15] MEDS: ACETAMINOPHEN 325 MG TABLET (FP) PO PRN (14:54)
--- NOTE | 2017-08-15 17:32 | PN ---
Progress Note, Physician History of Present Illness: Dyspnea resolved. - Current Medication List Current Medications: Active Medications Acetaminophen (Tylenol -) 650 mg PO Q6H PRN PRN Reason: FEVER OR PAIN Last Admin: 08/15/17 14:54 Dose: 650 mg Albuterol/Ipratropium (Duoneb -) 1 amp NEB Q4H PRN Last Admin: 08/11/17 18:15 Dose: 1 amp Amlodipine Besylate (Norvasc -) 5 mg PO DAILY [facility] Last Admin: 08/15/17 09:27 Dose: 5 mg Budesonide/Formoterol Fumarate (Symbicort 160/4.5mcg -) 2 puff IH BID [facility] Last Admin: 08/15/17 09:27 Dose: 2 puff Furosemide (Lasix -) 40 mg PO BIDLASIX [facility] Last Admin: 08/15/17 14:52 Dose: 40 mg Heparin Sodium (Porcine) (Heparin -) 5,000 unit SQ TID [facility] Last Admin: 08/15/17 14:51 Dose: 5,000 unit Nicotine (Nicoderm Patch -) 7 mg TD DAILY [facility] Last Admin: 08/15/17 09:27 Dose: 7 mg Prednisone (Deltasone -) 10 mg PO DAILY [facility] Stop: 08/17/17 10:01 Spironolactone (Aldactone -) 25 mg PO DAILY [facility] Last Admin: 08/15/17 09:25 Dose: 25 mg Valsartan (Diovan -) 160 mg PO BID [facility] Last Admin: 08/15/17 09:26 Dose: 160 mg - Objective Vital Signs: Vital Signs Temperature 97 F L 08/15/17 17:00 Pulse Rate 90 08/15/17 17:00 Respiratory Rate 20 08/15/17 17:00 Blood Pressure 126/69 08/15/17 17:00 O2 Sat by Pulse Oximetry (%) 92 L 08/15/17 09:32 Constitutional: Yes: No Distress, Calm Neck: Yes: Supple Cardiovascular: Yes: Regular Rate and Rhythm Respiratory: Yes: Regular, Diminished Gastrointestinal: Yes: Normal Bowel Sounds, Soft Edema: Yes Edema: LLE: 1+, RLE: 1+ Labs: CBC, BMP 08/15/17 07:30 08/13/17 08:08 INR, PTT INR 1.17 (0.82-1.09) H 08/01/17 04:00 Problem List - Problems (1) Sleep apnea Code(s): G47.30 - SLEEP APNEA, UNSPECIFIED Qualifiers: Sleep apnea type: obstructive Qualified Code(s): G47.33 - Obstructive sleep apnea (adult) (pediatric) (2) Morbid obesity Code(s): E66.01 - MORBID (SEVERE) OBESITY DUE TO EXCESS CALORIES (3) COPD exacerbation Code(s): J44.1 - CHRONIC OBSTRUCTIVE PULMONARY DISEASE W (ACUTE) EXACERBATION (4) Asthma Code(s): J45.909 - UNSPECIFIED ASTHMA, UNCOMPLICATED Qualifiers: Asthma severity: unspecified severity (5) Acute on chronic respiratory failure with hypoxia and hypercapnia Code(s): J96.21 - ACUTE AND CHRONIC RESPIRATORY FAILURE WITH HYPOXIA; J96.22 - ACUTE AND CHRONIC RESPIRATORY FAILURE WITH HYPERCAPNIA (6) Pulmonary HTN Code(s): I27.20 - PULMONARY HYPERTENSION, UNSPECIFIED (7) Cor pulmonale Code(s): I27.81 - COR PULMONALE (CHRONIC) (8) Diastolic dysfunction Code(s): I51.9 - HEART DISEASE, UNSPECIFIED Assessment/Plan 1. Acute on hypoxemic/hypercapneic respiratory failure improved 2. Acute COPD exacerbation improved 3. Obesity/hypoventilation syndrome 4. Severe pulm HTN with cor pulmonale 5. Morbid obesity 6. OSAS suspect 7. Tobacco abuse PLAN: 1. Continue BD, oral steroid taper with GI protection, O2 as needed, BiPAP at night and PRN during day 2. Decrease Furosemide 40 qd and Aldactone 25 qd 3. DVT prophylaxis 4. Continue Amlodipine 5 qd and Diovan 160 bid 5. PT->SNF, PSG as outpatient
[2017-08-15] MEDS ORDERED: PT OWN MED DRAWER 7, Y5N ONE (21:08)
[2017-08-16] MEDS: HEPARIN NA (PORCINE) 5,000 UNITS/ML 1ML VIAL SQ SCH ×2 (06:25→15:27)
[2017-08-16 06:36] VITALS: PULSE 88
--- NOTE | 2017-08-16 06:43 | PN ---
Physical Exam: SUBJECTIVE: Patient seen and examined by me this AM - No major overnight events. Pt endorses improving breathing, SOB. Still w/ mild dry cough and trace BL LE edema. Endorse mild persistent pain in knees BL. - Denies any fever/chills, CP, PEREZ/dizziness, abdominal pain, N/V, dysuria, diarrhea/constipation, peripheral weakness/numbness - Endorses concerns w/ payment for home medications/oxygen tx. Counseled to quit smoking, especially given risk of severe burn on home o2. OBJECTIVE: Vital Signs Period Temp Pulse Resp BP Sys/Melgoza Pulse Ox Last 24 Hr 97 F-98.4 F 85-93 18-20 118-139/60-74 92-94 GENERAL: The patient is awake, alert, and fully oriented, in no acute distress. HEAD: Normal with no signs of trauma. EYES: PERRL, extraocular movements intact, sclera anicteric, conjunctiva clear. No ptosis. ENT: Ears normal, nares patent, oropharynx clear without exudates, moist mucous membranes. NECK: Trachea midline, supple, no lymphadenopathy or JVD LUNGS: Trace bibasilar crackles. No wheezing noted. HEART: Regular rate and rhythm, S1, S2, S3 auscultated without murmur, rub or gallop. ABDOMEN: Soft, nontender, globular abdomen, normoactive bowel sounds, no guarding, no rebound, no hepatosplenomegaly, no masses. EXTREMITIES: 2+ pulses, warm, well-perfused. 1+ BL LE edema NEUROLOGICAL: Cranial nerves II through XII grossly intact. Normal speech, gait not observed. PSYCH: Normal mood, normal affect. SKIN: Warm, dry, normal turgor, no rashes or lesions noted Laboratory Results - last 24 hr CBC, BMP 08/15/17 07:30 08/13/17 08:08 08/15/17 07:30 WBC 11.1 H RBC 5.70 H Hgb 14.2 Hct 46.9 MCV 82.2 MCH 24.9 L MCHC 30.3 L RDW 17.7 H Plt Count 148 D MPV 8.0 Neutrophils % 74.7 Lymphocytes % 15.7 D Monocytes % 8.3 Eosinophils % 1.0 Basophils % 0.3 Active Medications Generic Name Dose Route Start Last Admin Trade Name Freq PRN Reason Stop Dose Admin Acetaminophen 650 mg 08/13/17 05:26 08/15/17 14:54 Tylenol - PO 650 mg Q6H PRN Administration FEVER OR PAIN Albuterol/Ipratropium 1 amp 08/05/17 16:56 08/11/17 18:15 Duoneb - NEB 1 amp Q4H PRN Administration Amlodipine Besylate 5 mg 08/06/17 10:00 08/15/17 09:27 Norvasc - PO 5 mg DAILY MINDI Administration Budesonide/Formoterol Fumarate 2 puff 08/05/17 22:00 08/15/17 21:22 Symbicort 160/4.5mcg - IH 2 puff BID MINDI Administration Furosemide 40 mg 08/16/17 10:00 Lasix - PO DAILY MINDI Heparin Sodium (Porcine) 5,000 unit 08/05/17 22:00 08/16/17 06:25 Heparin - SQ 5,000 unit TID MINDI Administration Nicotine 7 mg 08/06/17 10:00 08/15/17 09:27 Nicoderm Patch - TD 7 mg DAILY MINDI Administration Prednisone 10 mg 08/16/17 10:00 Deltasone - PO 08/17/17 10:01 DAILY MINDI Spironolactone 25 mg 08/06/17 10:00 08/15/17 09:25 Aldactone - PO 25 mg DAILY MINDI Administration Valsartan 160 mg 08/10/17 22:00 08/15/17 21:22 Diovan - PO 160 mg BID MINDI Administration Microbiology 07/31/17 19:45 Blood - Central Line Blood Culture - Final NO GROWTH AFTER 5 DAYS INCUBATION 07/31/17 20:00 Blood - Central Line Blood Culture - Final NO GROWTH AFTER 5 DAYS INCUBATION 08/01/17 21:33 Sputum - Endotrachea Suction/Ventilator Gram Stain - Final 08/01/17 21:33 Sputum - Endotrachea Suction/Ventilator Sputum Culture - Final NORMAL RESPIRATORY JERRY 07/29/17 18:22 Blood - Peripheral Venous Blood Culture - Final NO GROWTH AFTER 5 DAYS INCUBATION 07/29/17 18:22 Blood - Peripheral Venous Blood Culture - Final NO GROWTH AFTER 5 DAYS INCUBATION 07/31/17 04:00 Sputum - Endotrachea Suction/Ventilator Gram Stain - Final 07/31/17 04:00 Sputum - Endotrachea Suction/Ventilator Sputum Culture - Final NORMAL RESPIRATORY JERRY 07/31/17 01:30 Urine - Urine Valdivia Urine Culture - Final NO GROWTH OBTAINED 07/31/17 01:30 Nasopharyngeal Swab Influenza Types A,B Antigen (ALVARADO) - Final 07/31/17 01:30 Nasopharyngeal Swab - Final Imaging: No recent imaging ASSESSMENT/PLAN: 52 yo man w/ pmh of urinary incontinence and mild asthma, who presented in acute hypoxic hypercapneic respiratory failure in setting of anaphylactoid status, possibly due to diet changes. 1. Acute hypoxic hypercapneic respiratory failure - has sinced resolved - Home O2 2L NC at rest/with exertion and BiPAP overnight 2. Acute on Chronic COPD Exacerbation - Continue duonebs - Continue symbicort 2 puffs BID - Continue prednisone taper as outpt - Monitor O2 status - Outpt f/u with director of video analytics, Dr. Stevenson, in one week 3. R-sided systolic CHF, Possible diastolic CHF - Continue lasix 40mg daily at home - f/u w/ outpt chorus master (Dr. Espino) in one week - repeat Echo as outpt 4. RANJIT w/ Cor Pulmonale - Bipap at night. Settings included in discharge packet - Outpt sleep study 5. HTN -Aldactone 25 mg daily -Valsartan 160 mg BID -Amlodipine 5 mg daily 6. Nicotine dependence - Nicoderm patch 7mg daily Dispo: Discharge on home O2 tx w/ outpt follow-up with chorus master, director of video analytics and PCP in one week. Plan discussed with attending, Dr. Petra Howell, PGY1 Problem List - Problems (1) Acute on chronic respiratory failure with hypoxia and hypercapnia Code(s): J96.21 - ACUTE AND CHRONIC RESPIRATORY FAILURE WITH HYPOXIA; J96.22 - ACUTE AND CHRONIC RESPIRATORY FAILURE WITH HYPERCAPNIA (2) COPD exacerbation Code(s): J44.1 - CHRONIC OBSTRUCTIVE PULMONARY DISEASE W (ACUTE) EXACERBATION (3) Cor pulmonale Code(s): I27.81 - COR PULMONALE (CHRONIC) (4) Obesity hypoventilation syndrome Code(s): E66.2 - MORBID (SEVERE) OBESITY WITH ALVEOLAR HYPOVENTILATION (5) Pulmonary HTN Code(s): I27.20 - PULMONARY HYPERTENSION, UNSPECIFIED (6) Morbid obesity Code(s): E66.01 - MORBID (SEVERE) OBESITY DUE TO EXCESS CALORIES (7) Sleep apnea Code(s): G47.30 - SLEEP APNEA, UNSPECIFIED Qualifiers: Sleep apnea type: obstructive Qualified Code(s): G47.33 - Obstructive sleep apnea (adult) (pediatric) Visit type - Emergency Visit Emergency Visit: No - New Patient This patient is new to me today: Yes Date on this admission: 08/16/17 - Critical Care Critical Care patient: No
[2017-08-16] MEDS: SPIRONOLACTONE 25 MG TABLET (FP) PO SCH (09:49)
[2017-08-16] MEDS: ACETAMINOPHEN 325 MG TABLET (FP) PO PRN (09:49)
[2017-08-16] MEDS: VALSARTAN 160 MG TABLET (UD) PO SCH (09:49)
[2017-08-16] MEDS: amLODIPine BESYLATE 5 MG TABLET (FP) PO SCH (09:49)
[2017-08-16] MEDS: NICOTINE 7 MG/24 HOURS TOPICAL PATCH TD SCH (09:49)
[2017-08-16] MEDS: ALBUTEROL SO4 2.5/IPRATROPIUM 0.5 INH SOL 3 ML VIAL.NEB. NEB PRN (09:50)
[2017-08-16] MEDS: BUDESONIDE/FORMETEROL FUMARATE 160/4.5 mcg INHALER IH SCH (09:51)
[2017-08-16] MEDS ORDERED: FUROSEMIDE 40 MG TABLET (FP) PO SCH (10:00)
[2017-08-16] MEDS ORDERED: predniSONE 10 MG TABLET (UD) PO SCH (10:00)
--- NOTE | 2017-08-16 11:15 | PN ---
Progress Note, Physician History of Present Illness: Dyspnea resolved. - Current Medication List Current Medications: Active Medications Acetaminophen (Tylenol -) 650 mg PO Q6H PRN PRN Reason: FEVER OR PAIN Last Admin: 08/16/17 09:49 Dose: 650 mg Albuterol/Ipratropium (Duoneb -) 1 amp NEB Q4H PRN Last Admin: 08/11/17 18:15 Dose: 1 amp Amlodipine Besylate (Norvasc -) 5 mg PO DAILY [facility] Last Admin: 08/16/17 09:49 Dose: 5 mg Budesonide/Formoterol Fumarate (Symbicort 160/4.5mcg -) 2 puff IH BID [facility] Last Admin: 08/16/17 09:51 Dose: 2 puff Furosemide (Lasix -) 40 mg PO DAILY [facility] Last Admin: 08/16/17 09:49 Dose: 40 mg Heparin Sodium (Porcine) (Heparin -) 5,000 unit SQ TID [facility] Last Admin: 08/16/17 06:25 Dose: 5,000 unit Nicotine (Nicoderm Patch -) 7 mg TD DAILY [facility] Last Admin: 08/16/17 09:49 Dose: 7 mg Prednisone (Deltasone -) 10 mg PO DAILY [facility] Stop: 08/17/17 10:01 Last Admin: 08/16/17 09:49 Dose: 10 mg Spironolactone (Aldactone -) 25 mg PO DAILY [facility] Last Admin: 08/16/17 09:49 Dose: 25 mg Valsartan (Diovan -) 160 mg PO BID [facility] Last Admin: 08/16/17 09:49 Dose: 160 mg - Objective Vital Signs: Vital Signs Temperature 98 F 08/16/17 06:00 Pulse Rate 88 08/16/17 06:00 Respiratory Rate 20 08/16/17 06:00 Blood Pressure 136/60 08/16/17 06:00 O2 Sat by Pulse Oximetry (%) 94 L 08/15/17 21:27 Constitutional: Yes: No Distress, Calm Neck: Yes: Supple Cardiovascular: Yes: Regular Rate and Rhythm Respiratory: Yes: Regular, Diminished, On Nasal O2 Gastrointestinal: Yes: Normal Bowel Sounds, Soft, Abdomen, Obese Edema: Yes Edema: LLE: 1+, RLE: 1+ Labs: CBC, BMP 08/15/17 07:30 08/13/17 08:08 INR, PTT INR 1.17 (0.82-1.09) H 08/01/17 04:00 Problem List - Problems (1) Sleep apnea Code(s): G47.30 - SLEEP APNEA, UNSPECIFIED Qualifiers: Sleep apnea type: obstructive Qualified Code(s): G47.33 - Obstructive sleep apnea (adult) (pediatric) (2) Morbid obesity Code(s): E66.01 - MORBID (SEVERE) OBESITY DUE TO EXCESS CALORIES (3) COPD exacerbation Code(s): J44.1 - CHRONIC OBSTRUCTIVE PULMONARY DISEASE W (ACUTE) EXACERBATION (4) Asthma Code(s): J45.909 - UNSPECIFIED ASTHMA, UNCOMPLICATED Qualifiers: Asthma severity: unspecified severity (5) Acute on chronic respiratory failure with hypoxia and hypercapnia Code(s): J96.21 - ACUTE AND CHRONIC RESPIRATORY FAILURE WITH HYPOXIA; J96.22 - ACUTE AND CHRONIC RESPIRATORY FAILURE WITH HYPERCAPNIA (6) Pulmonary HTN Code(s): I27.20 - PULMONARY HYPERTENSION, UNSPECIFIED (7) Cor pulmonale Code(s): I27.81 - COR PULMONALE (CHRONIC) (8) Diastolic dysfunction Code(s): I51.9 - HEART DISEASE, UNSPECIFIED (9) Obesity hypoventilation syndrome Code(s): E66.2 - MORBID (SEVERE) OBESITY WITH ALVEOLAR HYPOVENTILATION Assessment/Plan 1. Acute on hypoxemic/hypercapneic respiratory failure improved 2. Acute COPD exacerbation improved 3. Obesity/hypoventilation syndrome 4. Severe pulm HTN with cor pulmonale 5. Morbid obesity 6. OSAS suspect 7. Tobacco abuse PLAN: 1. Continue BD, oral steroid taper with GI protection, O2 as needed, BiPAP at night and PRN during day 2. Continue Furosemide 40 qd and Aldactone 25 qd 3. DVT prophylaxis 4. Continue Amlodipine 5 qd and Diovan 160 bid 5. D/c planning with f/u in office , PSG as outpatient
[2017-08-16 13:03] VITALS: BP 140/80; TEMP 98.2
--- NOTE | 2017-08-16 14:15 | PN ---
Teaching Attending Note Name of Resident: Jono Howell ATTENDING PHYSICIAN STATEMENT I saw and evaluated the patient. I reviewed the resident's note and discussed the case with the resident. I agree with the resident's findings and plan as documented. SUBJECTIVE: no fever or chills. has NO CP . NO SOB OBJECTIVE: AAOx3. NAD CV: RRR, no MRG Lungs: CTAB Ext: 1+ edema on LE. ASSESSMENT AND PLAN: 52 y/o man with h/o morbid obesity , Childhood asthma and nicotine dependence who presented with SOB x 3 days and was found to have acute hypoxic hypercapnic resp failure 1- Acute hypoxic hypercapnic resp failure. resolved . 2- Acute COPD exacerbation : improved. - cont Nebs and inhalers - switch to 10 mg or prednisone daily x 3 days - needs 2 l of O2 at rest and 2 with exertion 3- Acute R systolic sided heart failure, and possible L sided Diastolic heart failure . - Cont lasix 40 daily and aldactone 25 mg daily -cont valsartan 4- RANJIT , and cor pulmonale . will need Oxygen and BIPAP as outpt . 5- HTN: cont valsartan and Norvasc 6- Dispo : Dc pending arrangements for O2 and BIPAP . F/u iwth card , Pulm , and our resident clinic or free clinic at [facility]
--- NOTE | 2017-08-16 19:09 | DS ---
Physical Exam: SUBJECTIVE: Patient seen and examined by me this AM - No major overnight events. Pt endorses improving breathing, SOB. Still w/ mild dry cough and trace BL LE edema. Endorse mild persistent pain in knees BL. - Denies any fever/chills, CP, PEREZ/dizziness, abdominal pain, N/V, dysuria, diarrhea/constipation, peripheral weakness/numbness - Endorses concerns w/ payment for home medications/oxygen tx. Counseled to quit smoking, especially given risk of severe burn on home o2. OBJECTIVE: Vital Signs Period Temp Pulse Resp BP Sys/Melgoza Pulse Ox Last 24 Hr 98 F-98.2 F 88-93 20-21 136-140/60-80 92-95 PHYSICAL EXAM GENERAL: The patient is awake, alert, and fully oriented, in no acute distress. HEAD: Normal with no signs of trauma. EYES: PERRL, extraocular movements intact, sclera anicteric, conjunctiva clear. No ptosis. ENT: Ears normal, nares patent, oropharynx clear without exudates, moist mucous membranes. NECK: Trachea midline, supple, no lymphadenopathy or JVD LUNGS: Trace bibasilar crackles. No wheezing noted. HEART: Regular rate and rhythm, S1, S2, S3 auscultated without murmur, rub or gallop. ABDOMEN: Soft, nontender, globular abdomen, normoactive bowel sounds, no guarding, no rebound, no hepatosplenomegaly, no masses. EXTREMITIES: 2+ pulses, warm, well-perfused. 1+ BL LE edema NEUROLOGICAL: Cranial nerves II through XII grossly intact. Normal speech, gait not observed. PSYCH: Normal mood, normal affect. SKIN: Warm, dry, normal turgor, no rashes or lesions noted LABS CBC, BMP 08/15/17 07:30 08/13/17 08:08 CBCD WBC 11.1 K/mm3 (4.0-10.0) H 08/15/17 07:30 RBC 5.70 M/mm3 (4.00-5.60) H 08/15/17 07:30 Hgb 14.2 GM/dL (11.7-16.9) 08/15/17 07:30 Hct 46.9 % (35.4-49) 08/15/17 07:30 MCV 82.2 fl (80-96) 08/15/17 07:30 MCHC 30.3 g/dl (32.0-35.9) L 08/15/17 07:30 RDW 17.7 % (11.9-15.9) H 08/15/17 07:30 Plt Count 148 K/MM3 (134-434) D 08/15/17 07:30 MPV 8.0 fl (7.5-11.1) 08/15/17 07:30 CMP Sodium 142 mmol/L (136-145) 08/13/17 08:08 Potassium 3.8 mmol/L (3.5-5.1) 08/13/17 08:08 Chloride 102 mmol/L (98-107) 08/13/17 08:08 Carbon Dioxide 35 mmol/L (21-32) H 08/13/17 08:08 Anion Gap 5 (8-16) L 08/13/17 08:08 BUN 17 mg/dL (7-18) 08/13/17 08:08 Creatinine 0.6 mg/dL (0.7-1.3) L 08/13/17 08:08 Creat Clearance w eGFR > 60 (>60) 08/01/17 04:00 Calcium 8.1 mg/dL (8.5-10.1) L 08/13/17 08:08 Total Bilirubin 0.5 mg/dL (0.2-1.0) 08/01/17 04:00 AST 11 U/L (15-37) L D 08/01/17 04:00 ALT 26 U/L (12-78) D 08/01/17 04:00 Alkaline Phosphatase 66 U/L (45-117) D 08/01/17 04:00 Total Protein 5.7 g/dl (6.4-8.2) L 08/01/17 04:00 Albumin 2.8 g/dl (3.4-5.0) L 08/01/17 04:00 HOSPITAL COURSE: Date of Admission:07/29/17 Date of Discharge: 08/16/17 52 yo man with pmh of childhood asthma, urinary incontinence, chronic knee pain who initially presented in the setting of 4 days of worsening SOB and facial rash/swelling to the ED, found to be in hypoxic hypercarbic respiratory failure , with o2 sat 82% on RA. ED course notable for WBC of 13.6, BNP of 3600~ and an ABG 7.41/59/68. Echo on admission notable for severe pulmonary HTN and moderate TR. CT chest on 07/30 was unremarkable for an acute infectious process and f/u CTA on 07/31 was negative for pulmonary embolus. Pt was transferred to ICU and intubated due to worsening respiratory status on 07/31. Pt was treated with IV steroids, duonebs, CAP coverage and received lasix for CHF with subsequent improvement in respiratory status and was summarily extubated on 08/03. Pt was also started on norvasc/diovan for hypertension during this admission. Pt continued to improve clinically and was determined to likely require home O2 tx and Bipap at night by pulmonary team. Pt continued to improve from a respiratory and cardiac perspective on above-listed tx and was ready for discharge upon confirmation of home O2 and Bipap supply delivery today, 08/16. All cultures to-date were negative. Imaging: CXR 08/06 - Since the prior exam of 08/05/2017, the right jugular line has been removed. The sella widened mediastinum with congestive changes and some atelectasis and/or infiltrate at the left base. Follow- up recommended Chest CTA 07/31 - Bibasal consolidation/atelectasis is limiting evaluation of both lower lobe pulmonary artery subsegmental branches. There is an artifact versus a small thrombus within a distal right lower lobe subsegmental pulmonary artery branch best visualized on axial image 55 for which a follow-up CT angiogram of the chest is recommended for further evaluation. Otherwise, there is no evidence of a pulmonary embolus within the main pulmonary artery and its proximal branches, bilaterally. Cardiac chambers appear to be within normal limits in size. Chest CT 07/30 - Examination of the mediastinum demonstrates extensive mediastinal lipomatosis. There is no evidence of mediastinal masses, fluid collections or significant lymphadenopathy. The heart is slightly enlarged. Coronary artery calcification is present. The lung khan are free of pulmonary masses, areas of acute consolidation or pleural effusions. There are some increased interstitial markings diffusely that most likely are chronic in nature. CXR 07/29 - Imaging reveals a widened mediastinum with congestive and possibly infiltrative changes with excessive soft tissues. There are no prior studies for comparison. Micro: Microbiology 07/31/17 19:45 Blood - Central Line Blood Culture - Final NO GROWTH AFTER 5 DAYS INCUBATION 07/31/17 20:00 Blood - Central Line Blood Culture - Final NO GROWTH AFTER 5 DAYS INCUBATION 08/01/17 21:33 Sputum - Endotrachea Suction/Ventilator Gram Stain - Final 08/01/17 21:33 Sputum - Endotrachea Suction/Ventilator Sputum Culture - Final NORMAL RESPIRATORY JERRY 07/29/17 18:22 Blood - Peripheral Venous Blood Culture - Final NO GROWTH AFTER 5 DAYS INCUBATION 07/29/17 18:22 Blood - Peripheral Venous Blood Culture - Final NO GROWTH AFTER 5 DAYS INCUBATION 07/31/17 04:00 Sputum - Endotrachea Suction/Ventilator Gram Stain - Final 07/31/17 04:00 Sputum - Endotrachea Suction/Ventilator Sputum Culture - Final NORMAL RESPIRATORY JERRY 07/31/17 01:30 Urine - Urine Valdivia Urine Culture - Final NO GROWTH OBTAINED 07/31/17 01:30 Nasopharyngeal Swab Influenza Types A,B Antigen (ALVARADO) - Final 07/31/17 01:30 Nasopharyngeal Swab - Final Consults: Cardiology Pulmonology PT: 08/16 - Focus on stair climbing today. Ascended/descended standard riser stairs holding 2 handrails, 2 steps ea 5x, rest repeat. C/O left knee pain. Supplemental O2 2L Patient stable for discharge on home O2 and BiPap overnight with current medication regimen, given clinical improvement. Follow-up with tone cabinet assembler, business support manager and PCP in one week Discharge plan discussed with attending, Dr. Petra Howell, PGY1 Minutes to complete discharge: 40 Discharge Summary Reason For Visit: DYSPNEA/RESP FAIL W/HYPOXIA 1. Acute Hypoxic Hypercapneic Respiratory Failure 2. Acute on Chronic COPD Exacerbation 3. Acute R-sided Systolic CHF 4. RANJIT w/ Cor Pulmonale 5. HTN 6. Nicotine Dependence Condition: Improved - Instructions Diet, Activity, Other Instructions: During your stay at [facility], you were treated for acute on chronic hypoxic respiratory failure (secondary to COPD vs. CHF) Please continue the following medications at home: Duoneb 1 vial as needed every four hours for COPD Norvasc 5mg daily for hypertension Symbicort 2 puffs, twice a day for COPD Lasix 40mg daily for congestive heart failure Prednisone 10mg daily for three days Spironolactone 25mg daily for hypertension Diovan 160 mg twice per day for hypertension Nicoderm Patch 7mg daily for smoking cessation Follow-ups: Primary Care - Please follow up with Dr. Cali as an outpatient in one week at the resident clinic. Dr. Figueroa (Internal Medicine resident) is available Wednesday 1-4:30PM. Please call [phone] to schedule an appointment. If insurance coverage is an issue, you have the option to follow-up at our free clinic at [facility]. Please call [phone] for appointment scheduling. Cardiology - You were seen by Dr. Espino in the hospital during your admission. Please follow-up for repeat Echocardiogram for further evaluation of cardiac function with an outpatient tone cabinet assembler. You may follow up with Dr. Espino at his practice in one week. Call [phone] to schedule appointment. Pulmonology - You were seen by Dr. Ignacio and his group during your admission. Please follow-up with him as an outpatient in one week. Contact information provided in this packet under the referral section. Diet: Low sodium, low fat diet Activity: Can ambulate freely with 3 L O2 via NC at home. Please use BiPap overnight at 3L O2. Your recommended BiPap settings are ST mode/IPAP 14/EPAP 8/RR 16/FiO2 40% . IT IS A MAJOR HAZARD TO SMOKE WHILE ON HOME OXYGEN THERAPY DUE TO RISK OF SEVERE HENDERSON TO FACE AND BODY. PLEASE CONTINUE TO REFRAIN FROM SMOKING WHILE RECEIVING HOME OXYGEN THERAPY. Please return to hospital if you experience any worsening of trouble breathing, persistent chest pain, shortness of breath, fever/chills or any new symptoms. Referrals: Freddy Cali MD [Staff Physician] - 1 Week Tera Figueroa RES [Resident] - 1 Week Jamie Ignacio MD [Staff Physician] - 1 Week Richard Espino MD [Staff Physician] - 1 Week Disposition: HOME - Home Medications Comprehensive Discharge Medication List: Ambulatory Orders Albuterol 2.5/Ipratropium 0.5 [Duoneb -] 1 amp NEB Q4H PRN #30 amp 08/16/17 Amlodipine Besylate [Norvasc -] 5 mg PO DAILY #30 tablet 08/16/17 Budesonide/Formeterol Fumarate [SYMBICORT 160/4.5mcg -] 2 puff IH BID #1 inhaler 08/16/17 Furosemide [Lasix -] 40 mg PO DAILY #30 tablet 08/16/17 Nicotine Patch [Nicoderm Patch -] 7 mg TD DAILY #7 patch 08/16/17 Prednisone [Deltasone -] 10 mg PO DAILY #3 tablet 08/16/17 Spironolactone [Aldactone -] 25 mg PO DAILY #30 tablet 08/16/17 Valsartan [Diovan] 160 mg PO BID #60 tablet 08/16/17 Problem List - Problems (1) Acute on chronic respiratory failure with hypoxia and hypercapnia Code(s): J96.21 - ACUTE AND CHRONIC RESPIRATORY FAILURE WITH HYPOXIA; J96.22 - ACUTE AND CHRONIC RESPIRATORY FAILURE WITH HYPERCAPNIA (2) COPD exacerbation Code(s): J44.1 - CHRONIC OBSTRUCTIVE PULMONARY DISEASE W (ACUTE) EXACERBATION (3) Cor pulmonale Code(s): I27.81 - COR PULMONALE (CHRONIC) (4) Obesity hypoventilation syndrome Code(s): E66.2 - MORBID (SEVERE) OBESITY WITH ALVEOLAR HYPOVENTILATION (5) Pulmonary HTN Code(s): I27.20 - PULMONARY HYPERTENSION, UNSPECIFIED (6) Morbid obesity Code(s): E66.01 - MORBID (SEVERE) OBESITY DUE TO EXCESS CALORIES (7) Sleep apnea Code(s): G47.30 - SLEEP APNEA, UNSPECIFIED Qualifiers: Sleep apnea type: obstructive Qualified Code(s): G47.33 - Obstructive sleep apnea (adult) (pediatric) This patient is new to me today: Yes Date on this admission: 08/17/17 Emergency Visit: No Critical Care patient: No - Discharge Referral Referred to [facility] No
== END 2017-08-16 18:09 | disposition home or self-care (01) | DRG 130 ==
LOC: JER 17:50 → JERBED 22:01 → UNDOADMIN 22:55 → J5S 07-30 12:06 → JICU 07-30 17:36 → J4W 08-05 18:11 → J6S 08-09 14:25
PROVIDERS: ADMIT Internal Medicine; ATTEND Internal Medicine
PROC: 5A1955Z Respiratory Ventilation, Greater than 96 Consecutive Hours (ICD-10-PCS; principal; 2017-07-30)
PROC: 0BH17EZ Insertion of Endotracheal Airway into Trachea, Via Natural or Artificial Opening (ICD-10-PCS; 2017-07-30)
PROC: 05HM33Z Insertion of Infusion Device into Right Internal Jugular Vein, Percutaneous Approach (ICD-10-PCS; 2017-07-31)
DX: J96.21 Acute and chronic respiratory failure with hypoxia (principal); J96.22 Acute and chronic respiratory failure with hypercapnia; J44.1 Chronic obstructive pulmonary disease with (acute) exacerbation; I11.0 Hypertensive heart disease with heart failure; I50.21 Acute systolic (congestive) heart failure; F17.210 Nicotine dependence, cigarettes, uncomplicated; I27.81 Cor pulmonale (chronic); I27.20 Pulmonary hypertension, unspecified; E66.01 Morbid (severe) obesity due to excess calories; Z68.43 Body mass index [BMI] 50.0-59.9, adult; J98.11 Atelectasis; G47.33 Obstructive sleep apnea (adult) (pediatric); J18.9 Pneumonia, unspecified organism
CPT/HCPCS: 31500; 36415; 36600; 71010-TC; 71250-TC; 71275-TC; 80048; 80053; 80061; 81003; 81015; 82272; 82375; 82550; 82803; 83036; 83050; 83605; 83721; 83735; 83880; 84100; 84443; 84484; 85025; 85027; 85379; 85610; 85730; 86850; 86900; 86901; 87040; 87070; 87086; 87205; 87804; 93005; 93010; 93306-TC; 93970-TC; 94002; 94640; 94660; 94761; 97116-GP; 97161-GP; 99285-25; J1644

== ENCOUNTER 2018-04-29 14:32 | Inpatient (IN) | payer MEDICARE, OTHER ==
--- NOTE | 2018-04-29 15:00 | PDOC ---
Rapid Medical Evaluation Time Seen by Provider: 04/29/18 14:59 Medical Evaluation: Allergies Allergy/AdvReac Type Severity Reaction Status Date / Time pistachio nut Allergy Verified 08/01/17 03:13 04/29/18 14:59 The patient presents with a chief complaint of: edema I have performed a brief in-person evaluation of this patient. Pertinent physical exam findings: vss, hypoxic I have ordered the following: ekg, labs, bnp The patient will proceed to the ED for further evaluation. 04/29/18 15:09
[2018-04-29 15:40] LABS: BASO % 0.9 % (0-2.0); EOS % 1.2 % (0-4.5); HEMATOCRIT 43.7 % (35.4-49); HEMOGLOBIN 13.5 GM/dL (11.7-16.9); LYMPH % 10.6 % (8-40); MCH 26.3 pg (25.7-33.7); MCHC 30.9 g/dl (32.0-35.9); MEAN PLT VOLUME 7.8 fl (7.5-11.1); MONO % 9.1 % (3.8-10.2); NEUT % 78.2 % (42.8-82.8); PLATELET COUNT 216 K/MM3 (134-434); RBC 5.15 M/mm3 (4.00-5.60); RDW 19.1 % (11.9-15.9); WHITE BLOOD COUNT 9.5 K/mm3 (4.0-10.0)
[2018-04-29] MEDS ORDERED: MAGNESIUM SULF 50% (8.12 MEQ/2 ML-1 GM VIAL) IVPB ONE (15:44)
[2018-04-29] MEDS ORDERED: FUROSEMIDE 40 MG/4 ML INJECTABLE VIAL IVPUSH ONE (15:44)
[2018-04-29] MEDS ORDERED: ALBUTEROL SO4 2.5/IPRATROPIUM 0.5 INH SOL 3 ML VIAL.NEB. NEB ONE ×3 (15:44→19:59)
[2018-04-29] MEDS ORDERED: predniSONE 20 MG TABLET (UD) PO ONE (15:45)
[2018-04-29] MEDS ORDERED: methylPREDNISolone NA SUCC 125 MG/2 ML VIAL IVPB ONE (15:49)
[2018-04-29] MEDS ORDERED: FUROSEMIDE 40 MG/4 ML INJECTABLE VIAL ONE ×2 (15:53→19:59)
[2018-04-29] MEDS ORDERED: predniSONE 20 MG TABLET (UD) ONE (15:53)
--- NOTE | 2018-04-29 16:16 | PDOC ---
History of Present Illness - General Chief Complaint: Dysphagia Stated Complaint: SENT BY PCP: R/O DVT Time Seen by Provider: 04/29/18 14:59 History Source: Patient Exam Limitations: No Limitations - History of Present Illness Initial Comments: 04/29/18 16:13 52 y/o man with h/o morbid obesity , Childhood asthma, hypoxic hypercapnic resp failure, COPD exacerbations, Right Systolic CHF 2/2 cor pulmonale presents to the ED stating that he didn;t take any of his medications for a month due to lack insurance. Now that he has insurance he wants to be evaluated and treated for his chronic conditions which has worsened due to non-compliance : fluid retention, difficulty breathing. Went to his PCP this morning but arrived late and she had to [place] for the [place], telling to come to the ER to make sure the pain in his legs wasn't due to a "blood clot" 04/29/18 17:15 Past History - Past Medical History Allergies/Adverse Reactions: Allergies Allergy/AdvReac Type Severity Reaction Status Date / Time pistachio nut Allergy Verified 08/01/17 03:13 Home Medications: Ambulatory Orders NK [No Known Home Medication] 04/29/18 Anemia: No Asthma: Yes ( CHILD-NO MEDS STABLE) Cancer: No Cardiac Disorders: No CVA: No COPD: No CHF: No Dementia: No Diabetes: No GI Disorders: No Disorders: No HTN: No Hypercholesterolemia: No Liver Disease: No Seizures: No Thyroid Disease: No - Surgical History Abdominal Surgery: No Appendectomy: No Cardiac Surgery: No Cholecystectomy: No Lung Surgery: No Neurologic Surgery: No Orthopedic Surgery: Yes (l knee torn meniscus repair in [facility] 2013) - Suicide/Smoking/Psychosocial Hx Smoking History: Current every day smoker Have you smoked in the past 12 months: Yes Number of Cigarettes Smoked Daily: 10 Cigars Per Day: 0 Information on smoking cessation initiated: No 'Breaking Loose' booklet given: 07/30/17 Hx Alcohol Use: No Drug/Substance Use Hx: No Substance Use Type: None Hx Substance Use Treatment: No Review of Systems - Review of Systems Able to Perform ROS?: Yes Is the patient limited Indian proficient: No Constitutional: No: Symptoms Reported Respiratory: Yes: Shortness of Breath, SOB with Exertion Cardiac (ROS): Yes: Edema ABD/GI: No: Symptoms Reported : No: Symptoms Reported Musculoskeletal: Yes: Joint Pain Integumentary: No: Symptoms Reported All Other Systems: Reviewed and Negative *Physical Exam - Vital Signs Last Vital Signs Temp Pulse Resp BP Pulse Ox 99.6 F 79 20 119/76 90 L 04/29/18 15:00 04/29/18 15:00 04/29/18 15:00 04/29/18 15:00 04/29/18 15:54 - Physical Exam General Appearance: Yes: Moderate Distress, Obese Respiratory/Chest: positive: Respiratory Distress, Decreased Breath Sounds, Wheezing. negative: Chest Tender Cardiovascular: positive: Regular Rhythm, Regular Rate, S1, S2, Edema Gastrointestinal/Abdominal: positive: Protuberent. negative: Tender Extremity: positive: Pedal Edema Neurologic: positive: Fully Oriented, Alert, Normal Response ED Treatment Course - LABORATORY CBC & Chemistry Diagram: 04/29/18 15:30 04/29/18 15:30 - ADDITIONAL ORDERS Additional order review: 04/29/18 15:30 RBC 5.15 MCV 85.0 MCHC 30.9 L RDW 19.1 H MPV 7.8 Neutrophils % 78.2 Lymphocytes % 10.6 D Monocytes % 9.1 Eosinophils % 1.2 Basophils % 0.9 - Medications Given in the ED: ED Medications Discontinued Medications Generic Name Dose Route Start Last Admin Trade Name Williamq PRN Reason Stop Dose Admin Albuterol/Ipratropium 1 amp 04/29/18 15:44 04/29/18 16:01 Duoneb - NEB 04/29/18 15:45 1 amp ONCE ONE Administration Furosemide 40 mg 04/29/18 15:44 04/29/18 16:01 Lasix Injection - IVPUSH 04/29/18 15:45 40 mg ONCE ONE Administration Prednisone 60 mg 04/29/18 15:45 04/29/18 16:01 Deltasone - PO 04/29/18 15:46 60 mg ONCE ONE Administration Medical Decision Making - Medical Decision Making 04/29/18 16:27 COPD exacerbation workup. Nasal cannula saturating well at 99% 04/29/18 16:58 EKG: Normal sinus rhythm, T wave abnormality, consider anterior ischemia. 04/29/18 18:14 CXR: Since 08/06/2017, again noted is the widened mediastinum. There are less congestive changes. There is a questionable density at the medial right base. For more complete evaluation, CT may be of help. Will start Levaquin, BIPAP and admit. *DC/Admit/Observation/Transfer Diagnosis at time of Disposition: Acute respiratory failure with hypoxia and hypercarbia - Discharge Dispostion Decision to Admit order: Yes - Referrals - Patient Instructions - Post Discharge Activity
[2018-04-29 16:23] LABS: ALBUMIN 3.1 g/dl (3.4-5.0); ANION GAP 3 (8-16); BLOOD UREA NITROGEN 16 mg/dL (7-18); CALCIUM 8.5 mg/dL (8.5-10.1); CHLORIDE 103 mmol/L (98-107); CO2 40 mmol/L (21-32); GLUCOSE,RANDOM 83 mg/dL (74-106); MAGNESIUM 2.1 mg/dL (1.8-2.4); POTASSIUM 4.7 mmol/L (3.5-5.1); SGOT/AST 16 U/L (15-37); SGPT/ALT 29 U/L (12-78); SODIUM 146 mmol/L (136-145)
[2018-04-29 16:28] LABS: ALK PHOS 86 U/L (45-117); BILIRUBIN,TOTAL 0.4 mg/dL (0.2-1.0); CREATININE 0.7 mg/dL (0.7-1.3); N-TERMINAL BNP 2445.49 pg/ml (5-125); TOT PROT 6.6 g/dl (6.4-8.2)
[2018-04-29 16:35] LABS: INR 1.13 (0.83-1.09); PROTHROMBIN TIME (PATIENT) 12.8 SEC (9.7-13.0)
[2018-04-29 17:13] LABS: ARTERIAL BLOOD GAS pH 7.28 (7.35-7.45)
[2018-04-29 17:14] LABS: ALLENS TEST POSITIVE; ARTERIAL BLD GAS O2 SATURATION 80.3 % (90-98.9); ARTERIAL BLOOD GAS BASE EXCESS 9.3 meq/l (-2-2)
[2018-04-29 17:17] LABS: ARTERIAL BLOOD GAS PCO2 87.1 mmHg (35-45); ARTERIAL BLOOD GAS PO2 49.1 mmHg (80-100)
[2018-04-29 17:18] LABS: CARBOXYHEMOGLOBIN 9.4 gm% (0.5-2.0)
[2018-04-29 17:31] LABS: ANISOCYTOSIS 1+; MACROCYTOSIS 1+
[2018-04-29 17:32] LABS: PLATELET ESTIMATE ADEQUATE
--- NOTE | 2018-04-29 18:50 | PDOC ---
Attending Attestation - Resident Resident Name: Manpreet Guardado - ED Attending Attestation I have performed the following: I have examined & evaluated the patient, The case was reviewed & discussed with the resident, I agree w/resident's findings & plan, Exceptions are as noted
--- NOTE | 2018-04-29 19:06 | HP ---
CHIEF COMPLAINT: "I only came in to get refills on my meds." PCP: [facility] - Dr. Figueroa HISTORY OF PRESENT ILLNESS: 53 year-old male with a PMH significant for asthma/COPD, sleep apnea, morbid obesity, obesity hypoventilation syndrome, pulmonary hypertension, cor pulmonale , diastolic heart failure, and recurrent hypoxic and hypercapnic respiratory failure requiring intubation (). Patient has not taken any medication for over a month due to lack of insurance. Earlier today he went to the [facility] to get prescription refills. He was referred to the ED for further evaluation. Patient reports worsening shortness of breath and dyspnea on exertion. He is essentially bed bound and can only lie in bed in prone position, cannot lie on his back or side. He finds it difficult to walk the several feet to the bathroom. He denies leg pain, calf pain, lower extremity swelling. He denies chest pain, palpitations. Denies cough, fever, sweats, or chills. Denies nausea, vomiting, diarrhea. No recent antibiotic use. No recent travel. ER course was notable for: (1) ABG 7.26/95/76/41/93% on 50% FiO2 (2) BNP 2445 (3) CXR: congestive changes, questionable density medial right base Recent Travel: No PAST MEDICAL HISTORY: See above PAST SURGICAL HISTORY: Left knee surgery Social History: Smoking: current every day Alcohol: no Drugs: no Family History: Allergies pistachio nut Allergy (Verified 08/01/17 03:13) HOME MEDICATIONS: Home Medications Medication Instructions Recorded NK [No Known Home Medication] 04/29/18 REVIEW OF SYSTEMS CONSTITUTIONAL: Absent: fever, chills, diaphoresis, generalized weakness, malaise, loss of appetite, weight change HEENT: Absent: rhinorrhea, nasal congestion, throat pain, throat swelling, difficulty swallowing, mouth swelling, ear pain, eye pain, visual changes CARDIOVASCULAR: Absent: chest pain, syncope, palpitations, irregular heart rate, lightheadedness , peripheral edema RESPIRATORY: +SOB, MANCIA Absent: cough, orthopnea, wheezing, stridor, hemoptysis GASTROINTESTINAL: Absent: abdominal pain, abdominal distension, nausea, vomiting, diarrhea, constipation, melena, hematochezia GENITOURINARY: Absent: dysuria, frequency, urgency, hesitancy, hematuria, flank pain, genital pain MUSCULOSKELETAL: +chronic bilateral knee pain; chronic left elbow swelling Absent: myalgia, arthralgia, joint swelling, back pain, neck pain SKIN: Absent: rash, itching, pallor HEMATOLOGIC/IMMUNOLOGIC: Absent: easy bleeding, easy bruising, lymphadenopathy, frequent infections ENDOCRINE: Absent: unexplained weight gain, unexplained weight loss, heat intolerance, cold intolerance NEUROLOGIC: Absent: headache, focal weakness or paresthesias, dizziness, unsteady gait, seizure, mental status changes, bladder or bowel incontinence PSYCHIATRIC: Absent: anxiety, depression, suicidal or homicidal ideation, hallucinations. PHYSICAL EXAMINATION Vital Signs - 24 hr 04/29/18 04/29/18 04/29/18 15:00 15:54 17:30 Temperature 99.6 F Pulse Rate 79 Pulse Rate [ 99 H Apical] Respiratory 20 Rate Blood Pressure 119/76 Blood Pressure 129/83 [Left Arm] O2 Sat by Pulse 79 L 90 L 96 Oximetry (%) 04/29/18 18:37 Temperature Pulse Rate 100 H Pulse Rate [ Apical] Respiratory Rate Blood Pressure Blood Pressure [Left Arm] O2 Sat by Pulse 94 L Oximetry (%) GENERAL: Awake, alert, and fully oriented. Morbidly obese. On BiPAP HEAD: Normal with no signs of trauma. EYES: Pupils equal, round and reactive to light, extraocular movements intact, sclera anicteric, conjunctiva clear. No lid lag. EARS, NOSE, THROAT: Ears normal, nares patent, oropharynx clear without exudates. Moist mucous membranes. NECK: Normal range of motion, supple without lymphadenopathy, JVD, or masses. LUNGS: Breath sounds difficult to auscultate due to body habitus; mild anterior wheezing appreciated; able to speak in complete sentences with BiPAP mask on, no accessory muscle use HEART: Regular rate and rhythm, S1 and S2 ABDOMEN: Soft, nontender, obese; rash across upper abdomen UPPER EXTREMITIES: swelling over left olecranon, no erythema, not warm LOWER EXTREMITIES: 2+ pulses, warm, well-perfused. No calf tenderness. 2+ edema , venous stasis changes bilaterally NEUROLOGICAL: Cranial nerves II-XII intact. Normal speech. Laboratory Results - last 24 hr 04/29/18 04/29/18 04/29/18 15:30 15:30 15:30 WBC 9.5 RBC 5.15 Hgb 13.5 Hct 43.7 MCV 85.0 MCH 26.3 MCHC 30.9 L RDW 19.1 H Plt Count 216 D MPV 7.8 Absolute Neuts (auto) 7.4 Total Counted 100 Neutrophils % 78.2 Neutrophils % (Manual) 78.0 Band Neutrophils % 1.0 Lymphocytes % 10.6 D Lymphocytes % (Manual) 9.0 Monocytes % 9.1 Monocytes % (Manual) 8 Eosinophils % 1.2 Eosinophils % (Manual) 2.0 Basophils % 0.9 Nucleated RBC % 0 Differential Comment Many large platelets Hypochromia 1+ Platelet Estimate Adequate Platelet Comment Polychromasia 1+ Anisocytosis 1+ Macrocytosis 1+ PT with INR 12.80 INR 1.13 H Anticoagulation Therapy Puncture Site ABG pH ABG pCO2 at Pt Temp ABG pO2 at Pt Temp ABG HCO3 ABG O2 Sat (Measured) ABG O2 Content ABG Base Excess Neto Test Carboxyhemoglobin Methemoglobin O2 Delivery Device Oxygen Flow Rate Vent Mode Vent Rate Mechanical Rate Pressure Support Vent Sodium 146 H Potassium 4.7 D Chloride 103 Carbon Dioxide 40 H Anion Gap 3 L BUN 16 Creatinine 0.7 Creat Clearance w eGFR > 60 Random Glucose 83 D Calcium 8.5 Magnesium 2.1 Total Bilirubin 0.4 AST 16 D ALT 29 Alkaline Phosphatase 86 Creatine Kinase 69 Troponin I 0.02 D B-Natriuretic Peptide 2445.49 H Total Protein 6.6 Albumin 3.1 L 18 04/29/18 16:40 16:40 WBC RBC Hgb Hct MCV MCH MCHC RDW Plt Count MPV Absolute Neuts (auto) Total Counted Neutrophils % Neutrophils % (Manual) Band Neutrophils % Lymphocytes % Lymphocytes % (Manual) Monocytes % Monocytes % (Manual) Eosinophils % Eosinophils % (Manual) Basophils % Nucleated RBC % Differential Comment Hypochromia Platelet Estimate Platelet Comment Polychromasia Anisocytosis Macrocytosis PT with INR INR Anticoagulation Therapy No Result Required. Puncture Site Right radial ABG pH 7.28 L D ABG pCO2 at Pt Temp 87.1 H* D ABG pO2 at Pt Temp 49.1 L* ABG HCO3 39.6 H ABG O2 Sat (Measured) 80.3 L ABG O2 Content 14.0 L ABG Base Excess 9.3 H Neto Test Positive Carboxyhemoglobin 9.4 H Methemoglobin 1.6 H O2 Delivery Device Nasal Oxygen Flow Rate 4l Vent Mode No Result Required. Vent Rate No Result Required. Mechanical Rate No Result Required. Pressure Support Vent No Result Required. Sodium Potassium Chloride Carbon Dioxide Anion Gap BUN Creatinine Creat Clearance w eGFR Random Glucose Calcium Magnesium Total Bilirubin AST ALT Alkaline Phosphatase Creatine Kinase Troponin I B-Natriuretic Peptide Total Protein Albumin UNABLE TO VERIFY HOME MEDS, PHARMACY CLOSED ASSESSMENT/PLAN 53 year-old male with a PMH significant for asthma/COPD, sleep apnea, morbid obesity, obesity hypoventilation syndrome, pulmonary hypertension, cor pulmonale , diastolic heart failure, and recurrent hypoxic and hypercapnic respiratory failure requiring intubation (). Acute on chronic hypoxic and hypercapnic respiratory failure, multifactorial --morbid obesity, obesity hypoventilation syndrome, asthma, COPD, sleep apnea , heart failure --ABG 7.26/95/76/41/93% on 50% FiO2 --BiPAP --IV steroids --duonebs --Lasix IV 40mg BID; love; daily weight; strict I&Os --IV protonix Severe pulmonary hypertension with cor pulmonale Diastolic heart failure r/o Community acquired pneumonia --questionable density medial right base --CT chest when patient able to lie flat --cultures --empiric ceftriaxone, azithromycin Hypertension --BP elevated --appears to have been on amlodipine 5mg and diovan 160mg BID, will restart --monitor closely for developing signs of infection, hypotension, renal dysfunction DVT prophylaxis: subq lovenox Visit type - Emergency Visit Emergency Visit: Yes ED Registration Date: 04/29/18 Care time: The patient presented to the Emergency Department on the above date and was hospitalized for further evaluation of their emergent condition. - New Patient This patient is new to me today: No - Critical Care Critical Care patient: Yes Total Critical Care Time (in minutes): 90 Critical Care Statement: The care of this patient involved high complexity decision making to prevent further life threatening deterioration of the patient 's condition and/or to evaluate & treat vital organ system(s) failure or risk of failure. Hospitalist Screening - Colonoscopy Questionnaire Colonoscopy Questionnaire: Colonoscopy Questionnaire - Patient: 50 - 75 years old and never had a screening colonoscopy: Unknown History of colon or rectal polyps, or CA: No History of IBD, Crohn's disease or UC: No History of abdominal radiation therapy as a child: No - Relative: 1 with colon or rectal CA, or polyps at age 60 or younger: Yes Colon or rectal CA diagnosed at age 45 or younger: Yes Multiple relatives with colon or rectal CA: Yes - Outcome: Screening Result: Positive Screen
[2018-04-29] MEDS ORDERED: FUROSEMIDE 40 MG/4 ML INJECTABLE VIAL IVPUSH STA (19:28)
[2018-04-29] MEDS: ALBUTEROL SO4 2.5/IPRATROPIUM 0.5 INH SOL 3 ML VIAL.NEB. NEB SCH (20:06)
[2018-04-29 20:12] LABS: ARTERIAL BLOOD GAS pH 7.26 (7.35-7.45)
[2018-04-29 20:13] LABS: ALLENS TEST POSITIVE; ARTERIAL BLD GAS O2 SATURATION 93.5 % (90-98.9); ARTERIAL BLOOD GAS BASE EXCESS 10.1 meq/l (-2-2); ARTERIAL BLOOD GAS PO2 76.7 mmHg (80-100)
[2018-04-29 20:14] LABS: ARTERIAL BLOOD GAS PCO2 95.2 mmHg (35-45)
[2018-04-29 20:16] LABS: CARBOXYHEMOGLOBIN 8.2 gm% (0.5-2.0)
[2018-04-29 21:29] LABS: MAGNESIUM 2.2 mg/dL (1.8-2.4); PHOSPHOROUS 5.4 mg/dL (2.5-4.9)
--- NOTE | 2018-04-29 21:43 | PN ---
Progress Note (short form) - Note Progress Note: ICU Resident Called by primary team due to concern over patient's respiratory distress. Pt is known to me from prior admission in July 2017. Briefly 53yo M with h/o chronic obstructive lung disease, suspected RANJIT, and morbid obesity who presents to the ER today for c/o shortness of breath. Pt reports having a lapse in his healthcare due to financial reasons and not being able to take his medications or use any respiratory assist device. Currently he is on BiPap and feels that his breathing is slightly better. Pt is alert and oriented x3. In ER pt was placed onto BiPap with initial ABG showing an acute respiratory acidosis with hypercapnea to 87. Pt was placed on BiPap and repeat ABG is being performed to assess his settings. In addition CXR shows a limited view due to soft tissues, however notable effusions are seen with pulmonary vasculature prominence compared to discharge CXR from July 2017. PE: Gen: NAD, with biPap mask fitted tightly, awake, alert, oriented x3 Lungs: B/L diffuse rales distantly heard. No accessory muscle use Cardiac: RRR no murmurs Abd: Soft, obese, nt/nd, no suprapubic tenderness Ext: Pitting edema noted to knee A/P: Acute hypercapneic respiratory distress Morbid obesity ? RANJIT (not sure if documented with sleep study) CHF exacerbation Continue lasix per primary team Monitor I&O's and daily weights Most likely pt is chronic CO2 retainer due to obstructive disease and hypoventilation syndrome Based on clinical presentation pt is not obtunded and is w/o distress so will monitor and f/u ABG Adjusted BiLevel settings to 16/4/rate 16/FiO2 50% --Would titrate FiO2 content to SpO2 88-93 to avoid V/Q mismatch Would advise on another repeat with continued new BiLevel settings Discussed with primary team and if pt begins to deteriorate mentally or with respiratory status will re-evaluate for ICU transfer and possible intubation. Tera Figueroa, DO - IM PGY-2
[2018-04-29 22:26] LABS: ARTERIAL BLOOD GAS PO2 70.4 mmHg (80-100)
[2018-04-29 22:27] LABS: ALLENS TEST POSITIVE; ARTERIAL BLD GAS O2 SATURATION 89.6 % (90-98.9); ARTERIAL BLOOD GAS BASE EXCESS 9.8 meq/l (-2-2); ARTERIAL BLOOD GAS pH 7.19 (7.35-7.45)
[2018-04-29] MEDS: VALSARTAN 160 MG TABLET (UD) PO SCH (23:36)
[2018-04-29] MEDS: amLODIPine BESYLATE 5 MG TABLET (FP) PO SCH (23:36)
[2018-04-30 00:29] LABS: ALLENS TEST POSITIVE; ARTERIAL BLD GAS O2 SATURATION 86.1 % (90-98.9); ARTERIAL BLOOD GAS BASE EXCESS 11.7 meq/l (-2-2)
[2018-04-30 00:30] LABS: ARTERIAL BLOOD GAS PO2 60.6 mmHg (80-100); ARTERIAL BLOOD GAS pH 7.25 (7.35-7.45)
[2018-04-30 01:24] LABS: URINE APPEARANCE CLEAR; URINE BILIRUBIN NEGATIVE (<2.0 mg/dL); URINE COLOR STRAW; URINE GLUCOSE (UA) NEGATIVE (NEGATIVE); URINE KETONE NEGATIVE (NEGATIVE); URINE LEUK ESTERASE NEGATIVE (NEGATIVE); URINE NITRITE NEGATIVE (NEGATIVE); URINE PROTEIN NEGATIVE (NEGATIVE); URINE UROBILINOGEN NEGATIVE mg/dL (0.2-1.0)
[2018-04-30 01:33] LABS: URINE HYALINE CAST 1 /lpf; URINE MUCUS RARE
[2018-04-30] MEDS: methylPREDNISolone NA SUCC 40 MG/1 ML VIAL IVPUSH SCH ×4 (03:36→21:36)
[2018-04-30] MEDS: ALBUTEROL SO4 2.5/IPRATROPIUM 0.5 INH SOL 3 ML VIAL.NEB. NEB SCH ×6 (03:45→20:50)
[2018-04-30 04:08] LABS: ALLENS TEST POSITIVE; ARTERIAL BLD GAS O2 SATURATION 97.3 % (90-98.9); ARTERIAL BLOOD GAS BASE EXCESS 11.4 meq/l (-2-2); ARTERIAL BLOOD GAS PCO2 92.9 mmHg (35-45)
[2018-04-30 04:09] LABS: ARTERIAL BLOOD GAS pH 7.28 (7.35-7.45)
[2018-04-30] MEDS: FUROSEMIDE 40 MG/4 ML INJECTABLE VIAL IVPUSH SCH ×2 (05:39→13:37)
[2018-04-30 06:56] LABS: BASO % 0.2 % (0-2.0); HEMATOCRIT 43.6 % (35.4-49); HEMOGLOBIN 13.2 GM/dL (11.7-16.9); LYMPH % 5.3 % (8-40); MCH 26.2 pg (25.7-33.7); MCHC 30.4 g/dl (32.0-35.9); MEAN CELL VOLUME 86.2 fl (80-96); MONO % 3.7 % (3.8-10.2); NEUT % 90.8 % (42.8-82.8); PLATELET COUNT 196 K/MM3 (134-434); RBC 5.06 M/mm3 (4.00-5.60); RDW 19.3 % (11.9-15.9)
[2018-04-30 07:25] LABS: CHLORIDE 96 mmol/L (98-107); POTASSIUM 4.7 mmol/L (3.5-5.1); SODIUM 142 mmol/L (136-145)
[2018-04-30 07:32] LABS: ALK PHOS 83 U/L (45-117); ANION GAP 2 (8-16); BILIRUBIN,TOTAL 0.4 mg/dL (0.2-1.0); BLOOD UREA NITROGEN 15 mg/dL (7-18); CALCIUM 8.4 mg/dL (8.5-10.1); CO2 44 mmol/L (21-32); CREATININE 0.7 mg/dL (0.7-1.3); GLUCOSE,RANDOM 103 mg/dL (74-106); SGOT/AST 19 U/L (15-37); SGPT/ALT 28 U/L (12-78); TOT PROT 6.7 g/dl (6.4-8.2)
--- NOTE | 2018-04-30 09:07 | EKG ---
Test Reason : Blood Pressure : / mmHG Vent. Rate : 100 BPM Atrial Rate : 100 BPM P-R Int : 150 ms QRS Dur : 094 ms QT Int : 348 ms P-R-T Axes : 068 083 003 degrees QTc Int : 448 ms NORMAL SINUS RHYTHM T WAVE ABNORMALITY, CONSIDER ANTERIOR ISCHEMIA ABNORMAL ECG WHEN COMPARED WITH ECG OF 29-JUL-2017 18:09, CRITERIA FOR SEPTAL INFARCT ARE NO LONGER PRESENT ST NO LONGER DEPRESSED IN ANTERIOR LEADS Confirmed by DEXTER LANG MD ([id number]) on 04/30/2018 9:07:12 AM Referred By: Confirmed By:DEXTER LANG MD
[2018-04-30] MEDS ORDERED: PT OWN MED DRAWER 7, Y5N ONE (09:23)
[2018-04-30] MEDS ORDERED: cefTRIAXone SODIUM 1 GM VIAL ONE (09:24)
[2018-04-30] MEDS ORDERED: DEXTROSE 5%-WATER - 50 ML IVPB ONE (09:24)
[2018-04-30] MEDS: AZITHROMYCIN IVPB 500 MG in DEXTROSE 5%-WATER - 250 ML IVPB SCH ×2 (10:04→13:37)
[2018-04-30] MEDS: CEFTRIAXONE 1 GM in DEXTROSE 5%-WATER - 50 ML IVPB SCH (10:11)
--- NOTE | 2018-04-30 10:17 | EKG ---
Test Reason : Blood Pressure : / mmHG Vent. Rate : 079 BPM Atrial Rate : 079 BPM P-R Int : 162 ms QRS Dur : 092 ms QT Int : 374 ms P-R-T Axes : 045 054 009 degrees QTc Int : 428 ms NORMAL SINUS RHYTHM T WAVE ABNORMALITY, CONSIDER ANTERIOR ISCHEMIA ABNORMAL ECG WHEN COMPARED WITH ECG OF 29-APR-2018 15:27, NO SIGNIFICANT CHANGE WAS FOUND Confirmed by PRECIOUS LAST, DEXTER ([id number]) on 04/30/2018 10:17:27 AM Referred By: Confirmed By:DEXTER LANG MD
[2018-04-30] MEDS: PANTOPRAZOLE SODIUM 40 MG VIAL IVPUSH SCH (10:27)
[2018-04-30] MEDS: VALSARTAN 160 MG TABLET (UD) PO SCH ×2 (10:28→21:35)
[2018-04-30] MEDS: amLODIPine BESYLATE 5 MG TABLET (FP) PO SCH (10:28)
[2018-04-30] MEDS: ENOXAPARIN NA (PORCINE) 40 MG/0.4 ML DISP.SYRIN SQ SCH (10:28)
--- NOTE | 2018-04-30 11:12 | PN ---
Physical Exam: SUBJECTIVE: Patient seen and examined at bedside. Wearing BiPAP. Reports feeling better. Upset about his lost clothes and wallet which has been reported. OBJECTIVE: Vital Signs Period Temp Pulse Resp BP Sys/Melgoza Pulse Ox Last 24 Hr 97.8 F-99.6 F 79-103 20-24 119-146/76-100 79-100 GENERAL: The patient is awake, alert, and fully oriented, in no acute distress. LUNGS: Mechanical breath sounds, no wheezing, speaking in full sentences, no accessory muscle use HEART: Regular rate and rhythm, S1, S2 ABDOMEN: Soft, obese LOWER EXTREMITIES: 2+ pulses, warm, well-perfused, 2+ edema, venous stasis changes bilaterally NEUROLOGICAL: Cranial nerves II through XII grossly intact. Normal speech SKIN: Warm, dry; examined skin, no pressure ulcers Laboratory Results - last 24 hr 04/29/18 04/29/18 04/29/18 15:30 15:30 15:30 WBC 9.5 RBC 5.15 Hgb 13.5 Hct 43.7 MCV 85.0 MCH 26.3 MCHC 30.9 L RDW 19.1 H Plt Count 216 D MPV 7.8 Absolute Neuts (auto) 7.4 Total Counted 100 Neutrophils % 78.2 Neutrophils % (Manual) 78.0 Band Neutrophils % 1.0 Lymphocytes % 10.6 D Lymphocytes % (Manual) 9.0 Monocytes % 9.1 Monocytes % (Manual) 8 Eosinophils % 1.2 Eosinophils % (Manual) 2.0 Basophils % 0.9 Nucleated RBC % 0 Differential Comment Many large platelets Hypochromia 1+ Platelet Estimate Adequate Platelet Comment Polychromasia 1+ Anisocytosis 1+ Macrocytosis 1+ PT with INR 12.80 INR 1.13 H Anticoagulation Therapy Puncture Site ABG pH ABG pCO2 at Pt Temp ABG pO2 at Pt Temp ABG HCO3 ABG O2 Sat (Measured) ABG O2 Content ABG Base Excess Neto Test Carboxyhemoglobin Methemoglobin O2 Delivery Device Oxygen Flow Rate Vent Mode Vent Rate Mechanical Rate PEEP Pressure Support Vent Sodium 146 H Potassium 4.7 D Chloride 103 Carbon Dioxide 40 H Anion Gap 3 L BUN 16 Creatinine 0.7 Creat Clearance w eGFR > 60 Random Glucose 83 D Lactic Acid Calcium 8.5 Phosphorus Magnesium 2.1 Total Bilirubin 0.4 AST 16 D ALT 29 Alkaline Phosphatase 86 Creatine Kinase 69 Troponin I 0.02 D B-Natriuretic Peptide 2445.49 H Total Protein 6.6 Albumin 3.1 L Urine Color Urine Appearance Urine pH Ur Specific [place] Urine Protein Urine Glucose (UA) Urine Ketones Urine Blood Urine Nitrite Urine Bilirubin Urine Urobilinogen Ur Leukocyte Esterase Urine WBC (Auto) Urine RBC (Auto) Hyaline Casts Urine Mucus 04/29/18 04/29/18 04/29/18 16:40 16:40 19:13 WBC RBC Hgb Hct MCV MCH MCHC RDW Plt Count MPV Absolute Neuts (auto) Total Counted Neutrophils % Neutrophils % (Manual) Band Neutrophils % Lymphocytes % Lymphocytes % (Manual) Monocytes % Monocytes % (Manual) Eosinophils % Eosinophils % (Manual) Basophils % Nucleated RBC % Differential Comment Hypochromia Platelet Estimate Platelet Comment Polychromasia Anisocytosis Macrocytosis PT with INR INR Anticoagulation Therapy No Result Required. No Result Required. Puncture Site Right radial Left radial ABG pH 7.28 L D 7.26 L ABG pCO2 at Pt Temp 87.1 H* D 95.2 H* ABG pO2 at Pt Temp 49.1 L* 76.7 L D ABG HCO3 39.6 H 41.4 H* ABG O2 Sat (Measured) 80.3 L 93.5 ABG O2 Content 14.0 L 17.1 ABG Base Excess 9.3 H 10.1 H Neto Test Positive Positive Carboxyhemoglobin 9.4 H Methemoglobin 1.6 H O2 Delivery Device Nasal Bipap Oxygen Flow Rate 4l 50 Vent Mode No Result Required. No Result Required. Vent Rate No Result Required. 14 Mechanical Rate No Result Required. No Result Required. PEEP 0.0 Pressure Support Vent No Result Required. 12/6 Sodium Potassium Chloride Carbon Dioxide Anion Gap BUN Creatinine Creat Clearance w eGFR Random Glucose Lactic Acid Calcium Phosphorus Magnesium Total Bilirubin AST ALT Alkaline Phosphatase Creatine Kinase Troponin I B-Natriuretic Peptide Total Protein Albumin Urine Color Urine Appearance Urine pH Ur Specific [place] Urine Protein Urine Glucose (UA) Urine Ketones Urine Blood Urine Nitrite Urine Bilirubin Urine Urobilinogen Ur Leukocyte Esterase Urine WBC (Auto) Urine RBC (Auto) Hyaline Casts Urine Mucus 04/29/18 04/29/18 04/29/18 19:14 20:50 20:50 WBC RBC Hgb Hct MCV MCH MCHC RDW Plt Count MPV Absolute Neuts (auto) Total Counted Neutrophils % Neutrophils % (Manual) Band Neutrophils % Lymphocytes % Lymphocytes % (Manual) Monocytes % Monocytes % (Manual) Eosinophils % Eosinophils % (Manual) Basophils % Nucleated RBC % Differential Comment Hypochromia Platelet Estimate Platelet Comment Polychromasia Anisocytosis Macrocytosis PT with INR INR Anticoagulation Therapy Puncture Site ABG pH ABG pCO2 at Pt Temp ABG pO2 at Pt Temp ABG HCO3 ABG O2 Sat (Measured) ABG O2 Content ABG Base Excess Neto Test Carboxyhemoglobin 8.2 H Methemoglobin 1.5 O2 Delivery Device Oxygen Flow Rate Vent Mode Vent Rate Mechanical Rate PEEP Pressure Support Vent Sodium Potassium Chloride Carbon Dioxide Anion Gap BUN Creatinine Creat Clearance w eGFR Random Glucose Lactic Acid Calcium Phosphorus 5.4 H D Magnesium 2.2 Total Bilirubin AST ALT Alkaline Phosphatase Creatine Kinase 91 Troponin I 0.02 B-Natriuretic Peptide Total Protein Albumin Urine Color Urine Appearance Urine pH Ur Specific [place] Urine Protein Urine Glucose (UA) Urine Ketones Urine Blood Urine Nitrite Urine Bilirubin Urine Urobilinogen Ur Leukocyte Esterase Urine WBC (Auto) Urine RBC (Auto) Hyaline Casts Urine Mucus 04/29/18 04/29/18 04/30/18 20:50 22:15 00:10 WBC RBC Hgb Hct MCV MCH MCHC RDW Plt Count MPV Absolute Neuts (auto) Total Counted Neutrophils % Neutrophils % (Manual) Band Neutrophils % Lymphocytes % Lymphocytes % (Manual) Monocytes % Monocytes % (Manual) Eosinophils % Eosinophils % (Manual) Basophils % Nucleated RBC % Differential Comment Hypochromia Platelet Estimate Platelet Comment Polychromasia Anisocytosis Macrocytosis PT with INR INR Anticoagulation Therapy No Result Required. No Result Required. Puncture Site Left radial Left radial ABG pH 7.19 L* 7.25 L ABG pCO2 at Pt Temp 118.0 H* D 105.0 H* ABG pO2 at Pt Temp 70.4 L 60.6 L ABG HCO3 43.7 H* 44.1 H* ABG O2 Sat (Measured) 89.6 L 86.1 L ABG O2 Content 17.3 16.4 ABG Base Excess 9.8 H 11.7 H Neto Test Positive Positive Carboxyhemoglobin Methemoglobin O2 Delivery Device Bipap Bipap Oxygen Flow Rate 50% 40% Vent Mode S/t S/t Vent Rate 20 20 Mechanical Rate No Result Required. No Result Required. PEEP 0.0 0.0 Pressure Support Vent 18/ 22/6 Sodium Potassium Chloride Carbon Dioxide Anion Gap BUN Creatinine Creat Clearance w eGFR Random Glucose Lactic Acid 0.5 Calcium Phosphorus Magnesium Total Bilirubin AST ALT Alkaline Phosphatase Creatine Kinase Troponin I B-Natriuretic Peptide Total Protein Albumin Urine Color Urine Appearance Urine pH Ur Specific [place] Urine Protein Urine Glucose (UA) Urine Ketones Urine Blood Urine Nitrite Urine Bilirubin Urine Urobilinogen Ur Leukocyte Esterase Urine WBC (Auto) Urine RBC (Auto) Hyaline Casts Urine Mucus 04/30/18 04/30/18 04/30/18 00:30 02:00 04:00 WBC RBC Hgb Hct MCV MCH MCHC RDW Plt Count MPV Absolute Neuts (auto) Total Counted Neutrophils % Neutrophils % (Manual) Band Neutrophils % Lymphocytes % Lymphocytes % (Manual) Monocytes % Monocytes % (Manual) Eosinophils % Eosinophils % (Manual) Basophils % Nucleated RBC % Differential Comment Hypochromia Platelet Estimate Platelet Comment Polychromasia Anisocytosis Macrocytosis PT with INR INR Anticoagulation Therapy No Result Required. Puncture Site Left radial ABG pH 7.28 L ABG pCO2 at Pt Temp 92.9 H* ABG pO2 at Pt Temp 101.0 H D ABG HCO3 42.4 H* ABG O2 Sat (Measured) 97.3 ABG O2 Content 18.1 ABG Base Excess 11.4 H Neto Test Positive Carboxyhemoglobin Methemoglobin O2 Delivery Device Bipap Oxygen Flow Rate 50 Vent Mode No Result Required. Vent Rate 24 Mechanical Rate No Result Required. PEEP 0.0 Pressure Support Vent 22/6 Sodium Potassium Chloride Carbon Dioxide Anion Gap BUN Creatinine Creat Clearance w eGFR Random Glucose Lactic Acid Calcium Phosphorus Magnesium Total Bilirubin AST ALT Alkaline Phosphatase Creatine Kinase Troponin I 0.02 B-Natriuretic Peptide Total Protein Albumin Urine Color Straw Urine Appearance Clear Urine pH 5.0 Ur Specific [place] 1.006 Urine Protein Negative Urine Glucose (UA) Negative Urine Ketones Negative Urine Blood 1+ H Urine Nitrite Negative Urine Bilirubin Negative Urine Urobilinogen Negative Ur Leukocyte Esterase Negative Urine WBC (Auto) None Urine RBC (Auto) 2 Hyaline Casts 1 Urine Mucus Rare 04/30/18 04/30/18 04/30/18 05:30 05:30 08:30 WBC 11.0 H RBC 5.06 Hgb 13.2 Hct 43.6 MCV 86.2 MCH 26.2 MCHC 30.4 L RDW 19.3 H Plt Count 196 MPV 8.0 Absolute Neuts (auto) 10.0 Total Counted Neutrophils % 90.8 H Neutrophils % (Manual) Band Neutrophils % Lymphocytes % 5.3 L D Lymphocytes % (Manual) Monocytes % 3.7 L Monocytes % (Manual) Eosinophils % 0.0 D Eosinophils % (Manual) Basophils % 0.2 Nucleated RBC % 0 Differential Comment Hypochromia Platelet Estimate Platelet Comment Polychromasia Anisocytosis Macrocytosis PT with INR INR Anticoagulation Therapy Puncture Site ABG pH ABG pCO2 at Pt Temp ABG pO2 at Pt Temp ABG HCO3 ABG O2 Sat (Measured) ABG O2 Content ABG Base Excess Neto Test Carboxyhemoglobin Methemoglobin O2 Delivery Device Oxygen Flow Rate Vent Mode Vent Rate Mechanical Rate PEEP Pressure Support Vent Sodium 142 Potassium 4.7 Chloride 96 L Carbon Dioxide 44 H Anion Gap 2 L BUN 15 Creatinine 0.7 Creat Clearance w eGFR > 60 Random Glucose 103 D Lactic Acid Calcium 8.4 L Phosphorus Magnesium Total Bilirubin 0.4 AST 19 ALT 28 Alkaline Phosphatase 83 Creatine Kinase Troponin I < 0.02 B-Natriuretic Peptide Total Protein 6.7 Albumin 3.0 L Urine Color Urine Appearance Urine pH Ur Specific [place] Urine Protein Urine Glucose (UA) Urine Ketones Urine Blood Urine Nitrite Urine Bilirubin Urine Urobilinogen Ur Leukocyte Esterase Urine WBC (Auto) Urine RBC (Auto) Hyaline Casts Urine Mucus Active Medications Generic Name Dose Route Start Last Admin Trade Name Freq PRN Reason Stop Dose Admin Albuterol/Ipratropium 1 amp 04/29/18 20:00 04/30/18 08:10 Duoneb - NEB 1 amp Q4H MINDI Administration Amlodipine Besylate 5 mg 04/29/18 23:09 04/30/18 10:28 Norvasc - PO 5 mg DAILY MINDI Administration Enoxaparin Sodium 40 mg 04/30/18 10:00 04/30/18 10:28 Lovenox - SQ 40 mg DAILY MINDI Administration Furosemide 40 mg 04/30/18 06:00 04/30/18 05:39 Lasix Injection - IVPUSH 40 mg BID@0600,1400 MINDI Administration Ceftriaxone Sodium 1 gm/ 50 mls @ 100 mls/hr 04/30/18 10:00 04/30/18 10:11 Dextrose IVPB 100 mls/hr DAILY MINDI Administration Protocol Azithromycin 500 mg/ Dextrose 250 mls @ 250 mls/hr 04/30/18 10:00 IVPB DAILY MINDI Methylprednisolone Sodium Succinate 40 mg 04/30/18 03:00 04/30/18 09:26 Solu-Medrol - IVPUSH 40 mg Q6H-IV MINDI Administration Pantoprazole Sodium 40 mg 04/30/18 10:00 04/30/18 10:27 Protonix Iv IVPUSH 40 mg DAILY MINDI Administration Valsartan 160 mg 04/29/18 23:15 04/30/18 10:28 Diovan - PO 160 mg BID MINDI Administration ASSESSMENT/PLAN 53 year-old male with a PMH significant for asthma/COPD, sleep apnea, morbid obesity, obesity hypoventilation syndrome, pulmonary hypertension, cor pulmonale , diastolic heart failure, and recurrent hypoxic and hypercapnic respiratory failure requiring intubation (07/2017). Acute on chronic hypoxic and hypercapnic respiratory failure, multifactorial --morbid obesity, obesity hypoventilation syndrome, asthma, COPD, sleep apnea , heart failure --on BiPAP overnight, gas improved, ph 7.34/85/61/45/91% on 50% FiO2; discussed with Dr. Quintero, this is probably close to baseline; switch to venti-mask , keep SpO2 88-92% to prevent worsening V/Q mismatch --IV steroids --duonebs --Lasix IV 40mg BID; love; daily weight; strict I&Os; down 3L in 24 hours; find out if we have a scale that can accommodate --IV protonix Severe pulmonary hypertension with cor pulmonale Diastolic heart failure r/o Community acquired pneumonia --questionable density medial right base --CT chest when patient able to lie flat --cultures --continue ceftriaxone, azithromycin Hypertension --continue amlodipine, valsartan FEN Fluids: PO intake adequate Electrolytes: replete as indicated Nutrition: low fat, low sodium DVT prophylaxis: subq lovenox Dispo: continues to require inpatient care. Full code. Visit type - Emergency Visit Emergency Visit: Yes ED Registration Date: 04/29/18 Care time: The patient presented to the Emergency Department on the above date and was hospitalized for further evaluation of their emergent condition. - New Patient This patient is new to me today: No - Critical Care Critical Care patient: Yes Total Critical Care Time (in minutes): 35 Critical Care Statement: The care of this patient involved high complexity decision making to prevent further life threatening deterioration of the patient 's condition and/or to evaluate & treat vital organ system(s) failure or risk of failure.
--- NOTE | 2018-04-30 13:29 | PN ---
Progress Note (short form) - Note Progress Note: Chief Complaint: Events noted notes reviewed, dyspnea and increasing bilateral lower extremity edema, medication administration non-compliance History of Present Illness: Seen and examined on telemetry. Full consult dictated Echocardiography dated 07/30/2017 revealed severe right sided dilation with moderate TR and severe pulmonary HTN - Current Medication List Current Medications Albuterol/Ipratropium (Duoneb -) 1 amp NEB Q4H [facility] Last Admin: 04/30/18 11:27 Dose: 1 amp Amlodipine Besylate (Norvasc -) 5 mg PO DAILY [facility] Last Admin: 04/30/18 10:28 Dose: 5 mg Enoxaparin Sodium (Lovenox -) 40 mg SQ DAILY [facility] Last Admin: 04/30/18 10:28 Dose: 40 mg Furosemide (Lasix Injection -) 40 mg IVPUSH BID@0600,1400 [facility] Last Admin: 04/30/18 05:39 Dose: 40 mg Ceftriaxone Sodium 1 gm/ (Dextrose) 50 mls @ 100 mls/hr IVPB DAILY [facility]; Protocol Last Admin: 04/30/18 10:11 Dose: 100 mls/hr Azithromycin 500 mg/ Dextrose 250 mls @ 250 mls/hr IVPB DAILY [facility] Methylprednisolone Sodium Succinate (Solu-Medrol -) 40 mg IVPUSH Q6H-IV [facility] Last Admin: 04/30/18 09:26 Dose: 40 mg Pantoprazole Sodium (Protonix Iv) 40 mg IVPUSH DAILY [facility] Last Admin: 04/30/18 10:27 Dose: 40 mg Valsartan (Diovan -) 160 mg PO BID [facility] Last Admin: 04/30/18 10:28 Dose: 160 mg Review of Systems Constitutional: denies Chills or Fever Respiratory: denies Cough or Sputum Production Cardiovascular: As noted above Gastrointestinal: denies Nausea, Vomiting, Diarrhea, Constipation or Abdominal Pain Genitourinary: No Symptoms Reported Musculoskeletal: reports Bilateral Knee Discomfort - Objective Vital Signs: Last Vital Signs Temp Pulse Resp BP Pulse Ox 98.6 F 94 H 20 143/87 92 L 04/30/18 06:00 04/30/18 06:00 04/30/18 06:00 04/30/18 06:00 04/30/18 11:26 Intake & Output 04/27/18 04/28/18 04/29/18 04/30/18 23:59 23:59 23:59 23:59 Intake Total 130 130 Output Total 1200 675 Balance -1070 -545 Weight 367 lb Neck: Supple Negative JVD No Bruit Cardiovascular: S1 S2 Regular Rate and Rhythm Respiratory: Diminished Breath Sounds at the Bases Gastrointestinal: Soft Benign Normal Bowel Sounds Ext: Edema Labs: ABG Results ABG pH 7.28 (7.35-7.45) L 04/30/18 04:00 ABG pCO2 at Pt Temp 92.9 mmHg (35-45) H* 04/30/18 04:00 ABG pO2 at Pt Temp 101.0 mmHg (80-100) H D 04/30/18 04:00 ABG HCO3 42.4 meq/L (22-26) H* 04/30/18 04:00 ABG O2 Sat (Measured) 97.3 % (90-98.9) 04/30/18 04:00 ABG O2 Content 18.1 % vol (15-22) 04/30/18 04:00 ABG Base Excess 11.4 meq/l (-2-2) H 04/30/18 04:00 Troponin, BNP 04/29/18 04/29/18 04/30/18 15:30 20:50 02:00 Troponin I 0.02 D 0.02 0.02 B-Natriuretic Peptide 2445.49 H 04/30/18 08:30 Troponin I < 0.02 B-Natriuretic Peptide CBC, BMP 04/30/18 05:30 04/30/18 05:30 Hepatic Panel Total Bilirubin 0.4 mg/dL (0.2-1.0) 04/30/18 05:30 AST 19 U/L (15-37) 04/30/18 05:30 ALT 28 U/L (12-78) 04/30/18 05:30 Alkaline Phosphatase 83 U/L (45-117) 04/30/18 05:30 Albumin 3.0 g/dl (3.4-5.0) L 04/30/18 05:30 INR, PTT INR 1.13 (0.83-1.09) H 04/29/18 15:30 Assessment/Plan ASSESSMENT: 1. Acute hypoxemic/hypercapneic respiratory failure, related to 2. Acute exacerbation of chronic obstructive pulmonary disease, possible pneumonia 3. Morbid obesity/hypoventilation syndrome with 4. Severe pulmonary hypertension with cor pulmonale, clinical class II-III NYHA classification failure 5. Diastolic LV dysfunction with chronic class 0-I NYHA classification LV congestive heart failure 6. Tobacco abuse PLAN: 1. Continue IV Lasix and add Aldactone 2. Continue Diovan 3. Continue Norvasc 4. May consider the addition of B-Blockers with caution 5. Continue Steroids and Bronchodilators 6. Echocardiography for evaluation LV and RV and RVSP measurement 7. Patient was strongly counselled smoking cessation, dietary restriction including caloric restrictions and weight reduction Camden Henson M.D.
[2018-04-30 13:52] LABS: ARTERIAL BLD GAS O2 SATURATION 91.4 % (90-98.9); ARTERIAL BLOOD GAS BASE EXCESS 14.9 meq/l (-2-2); ARTERIAL BLOOD GAS PO2 61.2 mmHg (80-100); ARTERIAL BLOOD GAS pH 7.34 (7.35-7.45)
[2018-04-30 14:08] LABS: ALLENS TEST POSITIVE
[2018-04-30 14:11] LABS: ARTERIAL BLOOD GAS PCO2 85.1 mmHg (35-45)
--- NOTE | 2018-04-30 14:11 | CONS ---
DATE OF CONSULTATION: 04/30/2018 REQUESTING PHYSICIAN: Hospitalist. CHIEF COMPLAINT: Dyspnea, increasing bilateral lower extremity edema, cardiovascular evaluation. HISTORY OF PRESENT ILLNESS: A 63-year-old morbidly obese male known to our service from prior hospitalization with known history of advanced chronic obstructive pulmonary disease, obstructive sleep apnea with severe degree of pulmonary hypertension, diastolic left ventricular dysfunction with chronic Class 0 to 1 [place] [employer] Classification left ventricular failure, RV failure, Class II to III [place] [employer] Classification, continued alcohol abuse, but denied; hypertensive cardiovascular disease, diabetes mellitus, who recently presented with increasing dyspnea and in addition bilateral lower extremity edema, post discontinuation of therapy. Patient did not have access to related to loss of insurance coverage. As noted above, patient presented with progressive dyspnea, which has been noted with minimal physical exertion and in addition increasing bilateral lower extremity edema. Patient reported orthopnea, but denied any paroxysmal nocturnal dyspnea. Patient denied any chest discomfort. Patient denied any palpitations, dizziness, lightheadedness or syncope. PAST MEDICAL HISTORY: Chronic obstructive pulmonary disease, obstructive sleep apnea, pulmonary hypertension, diastolic left ventricular dysfunction with Class 0 to I [place] [employer] Classification left ventricular failure, RV dysfunction, degenerative joint disease, tobacco abuse. SOCIAL HISTORY: Resides at home, admits to tobacco abuse. FAMILY HISTORY: Positive coronary artery disease. ALLERGIES: No known medical allergies. MEDICATIONS: Medical therapy currently include DuoNeb nebulizer, Norvasc 5 mg once a day, Lovenox 40 mg subcutaneously once a day, Lasix 40 mg IV twice a day, ceftriaxone once a day, Zithromax 50 mg once a day, methylprednisolone 40 mg every 6 hours, Protonix 40 mg once a day, Diovan 160 mg twice a day. REVIEW OF SYSTEMS: Head and Neck: He denies headache, photophobia, blurring of vision. Respiratory: As noted above. Cardiovascular: As noted above. Gastrointestinal: He denies nausea, vomiting, diarrhea, abdominal discomfort. Genitourinary: No symptoms reported. Musculoskeletal: Degenerative joint disease with bilateral knee discomfort. PHYSICAL EXAMINATION: Vitals: Blood pressure 143/87 mmHg, pulse rate is 94 beats per minute. Head and Neck: Pupils equally reactive to light and accommodation. Extraocular muscles are intact. Anicteric sclera. Negative JVD, no bruit appreciated. Chest: Diminished breath sounds at the bases bilaterally. Cardiovascular: S1, S2 regular, distant. Abdomen: Soft, benign, protuberant, normoactive bowel sounds. Extremities: Bilateral edema. distal pulses. No calf tenderness. ABG revealed pH of 7.28, pCO2 92.9, pO2 101, saturation 97.3%. Troponin levels were noted. BNP 2445. CBC revealed white cell count 11.0, hemoglobin 13.2, platelet count 196. Basic metabolic profile revealed sodium 142, potassium 4.7, BUN of 15, creatinine 0.7, glucose 103. AST and ALT levels were noted. INR 1.13. ASSESSMENT: 1. Acute hypoxic hypercapnic respiratory failure related to acute exacerbation of chronic obstructive pulmonary disease, possible pneumonia. 2. Acute exacerbation of chronic obstructive pulmonary disease, possible pneumonia. 3. Morbid obesity with hypoventilation syndrome. 4. Severe pulmonary hypertension with cor pulmonale clinical Class II to III [place] [employer] Classification failure. 5. Diastolic left ventricular dysfunction with chronic Class 0 to I [place] [employer] Classification left ventricular congestive heart failure. 6. History of degenerative joint disease. 7. Tobacco abuse. RECOMMENDATIONS: 1. Continuation of IV Lasix in addition of Aldactone. 2. Continuation of Diovan. 3. Continuation of Norvasc. 4. May consider the addition of beta-blockers with caution. 5. Continuation of steroids and beta-blockers. 6. Echocardiography for evaluation of LV and RV function and RVS measurement. 7. Patient was strongly counseled smoking cessation, dietary restriction, including caloric restriction and weight reduction. Thank you for the kind referral. VICTORINA WARD M.D. [id number]
--- NOTE | 2018-04-30 15:06 | CON.PULM ---
Consult Consult Specialty:: PULMONARY Referred by:: ELVIA Badillo Reason for Consultation:: respiratory failure - History of Present Illness Chief Complaint: shortness of breath History of Present Illness: 53yo male with h/o COPD, chronic hypoxic and hypercapneic respiratory failure on home O2 and BiPAP, LV diastolic dysfunction, pulmonary HTN, RANJIT/OHS who was admitted with worsening shortness of breath. States that he ran out of his medications about a month ago and was unable to refill due to lack of insurance. No significant cough or wheezing. No chest pain or palpitations. No fevers, chills or sweats. Reports compliance with his BiPAP but continues to smoke cigarettes. ABG done showing acute on chronic respiratory acidosis, placed on BiPAP. - History Source History Provided By: Patient, Medical Record Limitations to Obtaining History: Clinical Condition - Past Medical History Cardio/Vascular: Yes: CHF, Pulmonary Hypertension Pulmonary: Yes: COPD, O2 Dependent - Alcohol/Substance Use Hx Alcohol Use: No - Smoking History Smoking history: Current every day smoker Have you smoked in the past 12 months: Yes Aproximately how many cigarettes per day: 10 Home Medications - Allergies Allergies/Adverse Reactions: Allergies Allergy/AdvReac Type Severity Reaction Status Date / Time pistachio nut Allergy Verified 08/01/17 03:13 - Home Medications Home Medications: Ambulatory Orders NK [No Known Home Medication] 04/29/18 Review of Systems - Review of Systems Constitutional: reports: Weakness. denies: Chills, Fever Eyes: denies: Recent Change in Vision HENT: denies: Nasal Congestion, Throat Pain Neck: denies: Stiffness, Tenderness Cardiovascular: reports: Edema, Shortness of Breath. denies: Chest Pain, Palpitations Respiratory: denies: Cough, Hemoptysis, Wheezing Gastrointestinal: denies: Abdominal Pain, Nausea, Vomiting Genitourinary: denies: Dysuria, Hematuria Neurological: denies: Dizziness, Headache Physical Exam Vital Sings: Vital Signs Temperature 97.6 F 04/30/18 10:00 Pulse Rate 92 H 04/30/18 10:00 Respiratory Rate 24 04/30/18 10:00 Blood Pressure 157/48 04/30/18 10:00 O2 Sat by Pulse Oximetry (%) 92 L 04/30/18 11:26 Constitutional: Yes: Anxious Eyes: Yes: Conjunctiva Clear, EOM Intact HENT: Yes: Atraumatic, Normocephalic Neck: Yes: Supple, Trachea Midline Cardiovascular: Yes: Regular Rate and Rhythm Respiratory: Yes: Diminished (distant breath sounds) ...Clubbing: No Gastrointestinal: Yes: Normal Bowel Sounds, Soft, Abdomen, Obese. No: Tenderness Edema: Yes Neurological: Yes: Alert, Oriented Labs: CBC, BMP 04/30/18 05:30 04/30/18 05:30 ABG Results ABG pH 7.34 (7.35-7.45) L 04/30/18 13:40 ABG pCO2 at Pt Temp 85.1 mmHg (35-45) H* 04/30/18 13:40 ABG pO2 at Pt Temp 61.2 mmHg (80-100) L D 04/30/18 13:40 ABG HCO3 44.9 meq/L (22-26) H* 04/30/18 13:40 ABG O2 Sat (Measured) 91.4 % (90-98.9) 04/30/18 13:40 ABG O2 Content 16.9 % vol (15-22) 04/30/18 13:40 ABG Base Excess 14.9 meq/l (-2-2) H 04/30/18 13:40 Imaging - Results Chest X-ray: Report Reviewed, Image Reviewed (congestive changes, widened mediastinum) Problem List - Problems (1) Acute on chronic respiratory failure with hypoxia and hypercapnia Code(s): J96.21 - ACUTE AND CHRONIC RESPIRATORY FAILURE WITH HYPOXIA; J96.22 - ACUTE AND CHRONIC RESPIRATORY FAILURE WITH HYPERCAPNIA (2) COPD exacerbation Code(s): J44.1 - CHRONIC OBSTRUCTIVE PULMONARY DISEASE W (ACUTE) EXACERBATION (3) Cor pulmonale Code(s): I27.81 - COR PULMONALE (CHRONIC) (4) Obesity hypoventilation syndrome Code(s): E66.2 - MORBID (SEVERE) OBESITY WITH ALVEOLAR HYPOVENTILATION (5) Pulmonary HTN Code(s): I27.20 - PULMONARY HYPERTENSION, UNSPECIFIED (6) Morbid obesity Code(s): E66.01 - MORBID (SEVERE) OBESITY DUE TO EXCESS CALORIES (7) Sleep apnea Code(s): G47.30 - SLEEP APNEA, UNSPECIFIED Qualifiers: Sleep apnea type: obstructive Qualified Code(s): G47.33 - Obstructive sleep apnea (adult) (pediatric) (8) Diastolic dysfunction Code(s): I51.9 - HEART DISEASE, UNSPECIFIED Assessment/Plan Acute on Chronic Hypoxic and Hypercapneic Respiratory Failure Acute COPD Exacerbation r/o Pneumonia LV diastolic Dysfunction Pulmonary HTN Morbid Obesity RANJIT/OHS Smoker - IV medrol - inhaled bronchodilators standing and PRN - O2 to keep SpO2 88-92% to prevent worsening V/Q mismatch - BiPAP as needed to assist in work of breathing - IV lasix - monitor urine output, creatinine - daily weights - agree with empiric antibiotics for now - CT chest when more stable - smoking cessation - encourage weight loss - DVT prophylaxis Thank you for this consult Flo Quintero MD
[2018-04-30] MEDS: NICOTINE 21 MG/24 HOURS TOPICAL PATCH TD SCH (23:08)
[2018-05-01] MEDS: ALBUTEROL SO4 2.5/IPRATROPIUM 0.5 INH SOL 3 ML VIAL.NEB. NEB SCH ×6 (00:15→20:50)
[2018-05-01] MEDS: methylPREDNISolone NA SUCC 40 MG/1 ML VIAL IVPUSH SCH ×4 (03:23→21:55)
[2018-05-01 06:21] LABS: ALLENS TEST POSITIVE; ARTERIAL BLD GAS O2 SATURATION 92.2 % (90-98.9); ARTERIAL BLOOD GAS BASE EXCESS 12.8 meq/l (-2-2); ARTERIAL BLOOD GAS PO2 72.7 mmHg (80-100)
[2018-05-01 06:22] LABS: ARTERIAL BLOOD GAS pH 7.23 (7.35-7.45)
[2018-05-01] MEDS: FUROSEMIDE 40 MG/4 ML INJECTABLE VIAL IVPUSH SCH ×2 (06:32→15:36)
[2018-05-01 08:15] LABS: HEMATOCRIT 45.8 % (35.4-49); HEMOGLOBIN 13.7 GM/dL (11.7-16.9); MCH 25.9 pg (25.7-33.7); MCHC 29.8 g/dl (32.0-35.9); MEAN CELL VOLUME 86.8 fl (80-96); MEAN PLT VOLUME 8.2 fl (7.5-11.1); PLATELET COUNT 223 K/MM3 (134-434); RBC 5.27 M/mm3 (4.00-5.60); RDW 19.4 % (11.9-15.9); WHITE BLOOD COUNT 13.5 K/mm3 (4.0-10.0)
[2018-05-01] MEDS ORDERED: cefTRIAXone SODIUM 1 GM VIAL ONE ×2 (10:14→11:09)
[2018-05-01] MEDS: ENOXAPARIN NA (PORCINE) 40 MG/0.4 ML DISP.SYRIN SQ SCH (10:17)
[2018-05-01] MEDS: amLODIPine BESYLATE 5 MG TABLET (FP) PO SCH (10:17)
[2018-05-01] MEDS: PANTOPRAZOLE SODIUM 40 MG VIAL IVPUSH SCH (10:17)
[2018-05-01] MEDS: VALSARTAN 160 MG TABLET (UD) PO SCH ×2 (10:17→21:55)
[2018-05-01] MEDS: NICOTINE 21 MG/24 HOURS TOPICAL PATCH TD SCH (10:18)
[2018-05-01] MEDS: AZITHROMYCIN IVPB 500 MG in DEXTROSE 5%-WATER - 250 ML IVPB SCH (10:18)
[2018-05-01] MEDS: CEFTRIAXONE 1 GM in DEXTROSE 5%-WATER - 50 ML IVPB SCH (11:11)
--- NOTE | 2018-05-01 11:42 | PN ---
Progress Note (short form) - Note Progress Note: Chief Complaint: Events noted, notes reviewed, dyspnea improved but not resolved , bilateral lower extremity edema resolving, remains on BiPAP History of Present Illness: Seen and examined on telemetry. Events noted, notes reviewed, dyspnea improved but not resolved, bilateral lower extremity edema resolving, remains on BiPAP Echocardiography dated 07/30/2017 revealed severe right sided dilation with moderate TR and severe pulmonary HTN - Current Medication List Current Medications Albuterol/Ipratropium (Duoneb -) 1 amp NEB Q4H [facility] Last Admin: 05/01/18 08:23 Dose: 1 amp Amlodipine Besylate (Norvasc -) 5 mg PO DAILY [facility] Last Admin: 05/01/18 10:17 Dose: 5 mg Enoxaparin Sodium (Lovenox -) 40 mg SQ DAILY [facility] Last Admin: 05/01/18 10:17 Dose: 40 mg Furosemide (Lasix Injection -) 40 mg IVPUSH BID@0600,1400 [facility] Last Admin: 05/01/18 06:32 Dose: 40 mg Ceftriaxone Sodium 1 gm/ (Dextrose) 50 mls @ 100 mls/hr IVPB DAILY [facility]; Protocol Last Admin: 05/01/18 11:11 Dose: 100 mls/hr Azithromycin 500 mg/ Dextrose 250 mls @ 250 mls/hr IVPB DAILY [facility] Last Admin: 05/01/18 10:18 Dose: 250 mls/hr Methylprednisolone Sodium Succinate (Solu-Medrol -) 40 mg IVPUSH Q6H-IV [facility] Last Admin: 05/01/18 10:00 Dose: 40 mg Nicotine (Nicoderm Patch -) 21 mg TD DAILY [facility] Last Admin: 05/01/18 10:18 Dose: 21 mg Pantoprazole Sodium (Protonix Iv) 40 mg IVPUSH DAILY [facility] Last Admin: 05/01/18 10:17 Dose: 40 mg Valsartan (Diovan -) 160 mg PO BID [facility] Last Admin: 05/01/18 10:17 Dose: 160 mg Review of Systems Constitutional: denies Chills or Fever Respiratory: denies Cough or Sputum Production Cardiovascular: As noted above Gastrointestinal: denies Nausea, Vomiting, Diarrhea, Constipation or Abdominal Pain Genitourinary: No Symptoms Reported Musculoskeletal: reports Bilateral Knee Discomfort - Objective Vital Signs: Last Vital Signs Temp Pulse Resp BP Pulse Ox 98.1 F 95 H 20 138/61 96 08/05/18 05:00 05/01/18 05:00 05/01/18 05:00 05/01/18 05:00 05/01/18 00:03 Intake & Output 04/28/18 04/29/18 04/30/18 05/01/18 23:59 23:59 23:59 23:59 Intake Total 130 660 390 Output Total 1200 6019 1600 Balance -1069 Weight 367 lb Neck: Supple Negative JVD No Bruit Cardiovascular: S1 S2 Regular Rate and Rhythm Respiratory: Diminished Breath Sounds at the Bases Gastrointestinal: Soft Benign Normal Bowel Sounds Ext: Edema Labs: ABG Results ABG pH 7.23 (7.35-7.45) L* 05/01/18 06:10 ABG pCO2 at Pt Temp 114.0 mmHg (35-45) H* D 05/01/18 06:10 ABG pO2 at Pt Temp 72.7 mmHg (80-100) L 05/01/18 06:10 ABG HCO3 45.8 meq/L (22-26) H* 05/01/18 06:10 ABG O2 Sat (Measured) 92.2 % (90-98.9) 05/01/18 06:10 ABG O2 Content 17.6 % vol (15-22) 05/01/18 06:10 ABG Base Excess 12.8 meq/l (-2-2) H 05/01/18 06:10 CBC, BMP 05/01/18 06:46 04/30/18 05:30 Hepatic Panel Total Bilirubin 0.4 mg/dL (0.2-1.0) 04/30/18 05:30 AST 19 U/L (15-37) 04/30/18 05:30 ALT 28 U/L (12-78) 04/30/18 05:30 Alkaline Phosphatase 83 U/L (45-117) 04/30/18 05:30 Albumin 3.0 g/dl (3.4-5.0) L 04/30/18 05:30 Assessment/Plan ASSESSMENT: 1. Acute hypoxemic/hypercapneic respiratory failure, related to 2. Acute exacerbation of chronic obstructive pulmonary disease, possible pneumonia 3. Morbid obesity/hypoventilation syndrome with 4. Severe pulmonary hypertension with cor pulmonale, clinical class II-III NYHA classification failure 5. Diastolic LV dysfunction with chronic class 0-I NYHA classification LV congestive heart failure 6. Tobacco abuse PLAN: 1. Continue IV Lasix and add Aldactone 2. Continue Diovan 3. Continue Norvasc 4. Add B-Blockers with caution and close monitoring of respiratory status 5. Continue Steroids and Bronchodilators 6. Echocardiography for evaluation LV and RV and RVSP measurement 7. Patient was strongly counselled smoking cessation, dietary restriction including caloric restrictions and weight reduction Camden Henson M.D.
[2018-05-01 12:23] LABS: PLATELET ESTIMATE ADEQUATE
[2018-05-01] MEDS: SPIRONOLACTONE 25 MG TABLET (FP) PO SCH (12:48)
--- NOTE | 2018-05-01 13:02 | PN ---
Progress Note (short form) - Note Progress Note: PULMONARY States breathing is better on BiPAP. Still some cough and wheezing. Vital Signs Period Temp Pulse Resp BP Sys/Melgoza Pulse Ox Last 24 Hr 97 F-99.3 F 86-100 20-24 114-138/60-63 90-96 Gen: less tachypneic on BiPAP Heart: RRR Lung: distant breath sounds Abd: soft, nontender Ext: + edema CBC, BMP 05/01/18 06:46 04/30/18 05:30 ABG Results ABG pH 7.23 (7.35-7.45) L* 05/01/18 06:10 ABG pCO2 at Pt Temp 114.0 mmHg (35-45) H* D 05/01/18 06:10 ABG pO2 at Pt Temp 72.7 mmHg (80-100) L 05/01/18 06:10 ABG HCO3 45.8 meq/L (22-26) H* 05/01/18 06:10 ABG O2 Sat (Measured) 92.2 % (90-98.9) 05/01/18 06:10 ABG O2 Content 17.6 % vol (15-22) 05/01/18 06:10 ABG Base Excess 12.8 meq/l (-2-2) H 05/01/18 06:10 Active Medications Albuterol/Ipratropium (Duoneb -) 1 amp NEB Q4H [facility] Last Admin: 05/01/18 12:14 Dose: 1 amp Amlodipine Besylate (Norvasc -) 5 mg PO DAILY [facility] Last Admin: 05/01/18 10:17 Dose: 5 mg Enoxaparin Sodium (Lovenox -) 40 mg SQ DAILY [facility] Last Admin: 05/01/18 10:17 Dose: 40 mg Furosemide (Lasix Injection -) 40 mg IVPUSH BID@0600,1400 [facility] Last Admin: 05/01/18 06:32 Dose: 40 mg Ceftriaxone Sodium 1 gm/ (Dextrose) 50 mls @ 100 mls/hr IVPB DAILY [facility]; Protocol Last Admin: 05/01/18 11:11 Dose: 100 mls/hr Azithromycin 500 mg/ Dextrose 250 mls @ 250 mls/hr IVPB DAILY [facility] Last Admin: 05/01/18 10:18 Dose: 250 mls/hr Methylprednisolone Sodium Succinate (Solu-Medrol -) 40 mg IVPUSH Q6H-IV [facility] Last Admin: 05/01/18 10:00 Dose: 40 mg Metoprolol Succinate (Toprol Xl -) 25 mg PO DAILY [facility] Nicotine (Nicoderm Patch -) 21 mg TD DAILY [facility] Last Admin: 05/01/18 10:18 Dose: 21 mg Pantoprazole Sodium (Protonix Iv) 40 mg IVPUSH DAILY [facility] Last Admin: 05/01/18 10:17 Dose: 40 mg Spironolactone (Aldactone -) 25 mg PO DAILY [facility] Last Admin: 05/01/18 12:48 Dose: 25 mg Valsartan (Diovan -) 160 mg PO BID [facility] Last Admin: 05/01/18 10:17 Dose: 160 mg A/P Acute on Chronic Hypoxic and Hypercapneic Respiratory Failure Acute COPD Exacerbation r/o Pneumonia LV diastolic Dysfunction Pulmonary HTN Morbid Obesity RANJIT/OHS Smoker - continue medrol - inhaled bronchodilators standing and PRN - O2 to keep SpO2 88-92% to prevent worsening V/Q mismatch - BiPAP as needed to assist in work of breathing - IV lasix - monitor urine output, creatinine - daily weights - agree with empiric antibiotics for now - CT chest when more stable - smoking cessation - encourage weight loss - DVT prophylaxis Problem List - Problems (1) Acute on chronic respiratory failure with hypoxia and hypercapnia Code(s): J96.21 - ACUTE AND CHRONIC RESPIRATORY FAILURE WITH HYPOXIA; J96.22 - ACUTE AND CHRONIC RESPIRATORY FAILURE WITH HYPERCAPNIA (2) COPD exacerbation Code(s): J44.1 - CHRONIC OBSTRUCTIVE PULMONARY DISEASE W (ACUTE) EXACERBATION (3) Cor pulmonale Code(s): I27.81 - COR PULMONALE (CHRONIC) (4) Obesity hypoventilation syndrome Code(s): E66.2 - MORBID (SEVERE) OBESITY WITH ALVEOLAR HYPOVENTILATION (5) Pulmonary HTN Code(s): I27.20 - PULMONARY HYPERTENSION, UNSPECIFIED (6) Morbid obesity Code(s): E66.01 - MORBID (SEVERE) OBESITY DUE TO EXCESS CALORIES (7) Sleep apnea Code(s): G47.30 - SLEEP APNEA, UNSPECIFIED Qualifiers: Sleep apnea type: obstructive Qualified Code(s): G47.33 - Obstructive sleep apnea (adult) (pediatric) (8) Diastolic dysfunction Code(s): I51.9 - HEART DISEASE, UNSPECIFIED
--- NOTE | 2018-05-01 14:03 | PN ---
Physical Exam: SUBJECTIVE: Patient seen and examined. Did not tolerate venti mask, back on BiPAP. OBJECTIVE: Vital Signs Period Temp Pulse Resp BP Sys/Melgoza Pulse Ox Last 24 Hr 97 F-99.3 F 86-100 20-24 114-138/60-63 90-96 GENERAL: The patient is awake, alert, and fully oriented, in no acute distress. LUNGS: Mechanical breath sounds, no wheezing, speaking in full sentences, no accessory muscle use HEART: Regular rate and rhythm, S1, S2 ABDOMEN: Soft, obese LOWER EXTREMITIES: 2+ pulses, warm, well-perfused, 2+ edema, venous stasis changes bilaterally NEUROLOGICAL: Cranial nerves II through XII grossly intact. Normal speech SKIN: Warm, dry Laboratory Results - last 24 hr 04/30/18 05/01/18 05/01/18 13:40 06:10 06:46 WBC 13.5 H RBC 5.27 Hgb 13.7 Hct 45.8 MCV 86.8 MCH 25.9 MCHC 29.8 L RDW 19.4 H Plt Count 223 MPV 8.2 Absolute Neuts (auto) 12.7 Total Counted 100 Neutrophils % No Result Required. Neutrophils % (Manual) 97.0 H Lymphocytes % No Result Required. Lymphocytes % (Manual) 2.0 L D Monocytes % (Manual) 1 L D Nucleated RBC % 0 Platelet Estimate Adequate Puncture Site Right radial Left radial ABG pH 7.34 L 7.23 L* ABG pCO2 at Pt Temp 85.1 H* 114.0 H* D ABG pO2 at Pt Temp 61.2 L D 72.7 L ABG HCO3 44.9 H* 45.8 H* ABG O2 Sat (Measured) 91.4 92.2 ABG O2 Content 16.9 17.6 ABG Base Excess 14.9 H 12.8 H Neto Test Positive Positive O2 Delivery Device Bipap / Bipap Oxygen Flow Rate 50% 50% Vent Mode Bipap / S/t Vent Rate 24 20 PEEP 0.0 Pressure Support Vent 18/03 Magnesium 05/01/18 06:46 WBC RBC Hgb Hct MCV MCH MCHC RDW Plt Count MPV Absolute Neuts (auto) Total Counted Neutrophils % Neutrophils % (Manual) Lymphocytes % Lymphocytes % (Manual) Monocytes % (Manual) Nucleated RBC % Platelet Estimate Puncture Site ABG pH ABG pCO2 at Pt Temp ABG pO2 at Pt Temp ABG HCO3 ABG O2 Sat (Measured) ABG O2 Content ABG Base Excess Neto Test O2 Delivery Device Oxygen Flow Rate Vent Mode Vent Rate PEEP Pressure Support Vent Magnesium 2.4 Active Medications Generic Name Dose Route Start Last Admin Trade Name Italo PRN Reason Stop Dose Admin Albuterol/Ipratropium 1 amp 04/29/18 20:00 05/01/18 12:14 Duoneb - NEB 1 amp Q4H [facility] Administration Amlodipine Besylate 5 mg 04/29/18 23:09 05/01/18 10:17 Norvasc - PO 5 mg DAILY [facility] Administration Enoxaparin Sodium 40 mg 04/30/18 10:00 05/01/18 10:17 Lovenox - SQ 40 mg DAILY [facility] Administration Furosemide 40 mg 04/30/18 06:00 05/01/18 06:32 Lasix Injection - IVPUSH 40 mg BID@0600,1400 [facility] Administration Ceftriaxone Sodium 1 gm/ 50 mls @ 100 mls/hr 04/30/18 10:00 05/01/18 11:11 Dextrose IVPB 100 mls/hr DAILY [facility] Administration Protocol Azithromycin 500 mg/ Dextrose 250 mls @ 250 mls/hr 04/30/18 10:00 05/01/18 10 :18 IVPB 250 mls/hr DAILY [facility] Administration Methylprednisolone Sodium Succinate 40 mg 04/30/18 03:00 05/01/18 10:00 Solu-Medrol - IVPUSH 40 mg Q6H-IV [facility] Administration Metoprolol Succinate 25 mg 05/02/18 10:00 Toprol Xl - PO DAILY [facility] Nicotine 21 mg 04/30/18 23:00 05/01/18 10:18 Nicoderm Patch - TD 21 mg DAILY [facility] Administration Pantoprazole Sodium 40 mg 04/30/18 10:00 05/01/18 10:17 Protonix Iv IVPUSH 40 mg DAILY [facility] Administration Spironolactone 25 mg 05/01/18 11:45 05/01/18 12:48 Aldactone - PO 25 mg DAILY [facility] Administration Valsartan 160 mg 04/29/18 23:15 05/01/18 10:17 Diovan - PO 160 mg BID [facility] Administration ASSESSMENT/PLAN 53 year-old male with a PMH significant for asthma/COPD, sleep apnea, morbid obesity, obesity hypoventilation syndrome, pulmonary hypertension, cor pulmonale , diastolic heart failure, and recurrent hypoxic and hypercapnic respiratory failure requiring intubation (07/2017). 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 Full code. Visit type - Emergency Visit Emergency Visit: Yes ED Registration Date: 04/29/18 Care time: The patient presented to the Emergency Department on the above date and was hospitalized for further evaluation of their emergent condition. - New Patient This patient is new to me today: No - Critical Care Critical Care patient: No
[2018-05-01] MEDS ORDERED: FUROSEMIDE 40 MG/4 ML INJECTABLE VIAL IVPUSH SCH (14:10)
[2018-05-02] MEDS: ALBUTEROL SO4 2.5/IPRATROPIUM 0.5 INH SOL 3 ML VIAL.NEB. NEB SCH ×7 (00:16→23:20)
[2018-05-02] MEDS: methylPREDNISolone NA SUCC 40 MG/1 ML VIAL IVPUSH SCH ×4 (03:15→21:35)
[2018-05-02 06:36] LABS: BASO % 0.1 % (0-2.0); HEMOGLOBIN 13.2 GM/dL (11.7-16.9); LYMPH % 3.6 % (8-40); MCH 26.2 pg (25.7-33.7); MCHC 30.7 g/dl (32.0-35.9); MEAN CELL VOLUME 85.3 fl (80-96); MONO % 2.2 % (3.8-10.2); NEUT % 94.1 % (42.8-82.8); PLATELET COUNT 186 K/MM3 (134-434); RBC 5.04 M/mm3 (4.00-5.60); RDW 19.5 % (11.9-15.9); WHITE BLOOD COUNT 10.9 K/mm3 (4.0-10.0)
[2018-05-02 07:06] LABS: ALBUMIN 3.2 g/dl (3.4-5.0); BLOOD UREA NITROGEN 21 mg/dL (7-18); CALCIUM 8.6 mg/dL (8.5-10.1); CHLORIDE 93 mmol/L (98-107); GLUCOSE,RANDOM 123 mg/dL (74-106); MAGNESIUM 2.3 mg/dL (1.8-2.4); POTASSIUM 4.7 mmol/L (3.5-5.1); SGPT/ALT 24 U/L (12-78); SODIUM 140 mmol/L (136-145)
[2018-05-02 07:08] LABS: ALK PHOS 72 U/L (45-117); BILIRUBIN,TOTAL 0.3 mg/dL (0.2-1.0); CREATININE 0.7 mg/dL (0.7-1.3); SGOT/AST 14 U/L (15-37); TOT PROT 6.8 g/dl (6.4-8.2)
[2018-05-02 07:20] LABS: ANION GAP 1 (8-16); CO2 46 mmol/L (21-32)
[2018-05-02] MEDS ORDERED: PT OWN MED DRAWER 7, Y5N ONE ×2 (08:56→21:13)
[2018-05-02] MEDS ORDERED: cefTRIAXone SODIUM 1 GM VIAL ONE (08:56)
[2018-05-02] MEDS ORDERED: DEXTROSE 5%-WATER - 50 ML IVPB ONE (08:56)
[2018-05-02] MEDS: PANTOPRAZOLE SODIUM 40 MG VIAL IVPUSH SCH (09:20)
[2018-05-02] MEDS: CEFTRIAXONE 1 GM in DEXTROSE 5%-WATER - 50 ML IVPB SCH (09:20)
[2018-05-02] MEDS: AZITHROMYCIN IVPB 500 MG in DEXTROSE 5%-WATER - 250 ML IVPB SCH (09:20)
[2018-05-02] MEDS: metoPROLOL SUCCINATE 25 MG TAB.SR.24H (FP) PO SCH (09:21)
[2018-05-02] MEDS: amLODIPine BESYLATE 5 MG TABLET (FP) PO SCH (09:21)
[2018-05-02] MEDS: ENOXAPARIN NA (PORCINE) 40 MG/0.4 ML DISP.SYRIN SQ SCH (09:21)
[2018-05-02] MEDS: NICOTINE 21 MG/24 HOURS TOPICAL PATCH TD SCH (09:21)
[2018-05-02] MEDS: VALSARTAN 160 MG TABLET (UD) PO SCH ×2 (09:21→21:35)
[2018-05-02] MEDS: SPIRONOLACTONE 25 MG TABLET (FP) PO SCH (09:21)
--- NOTE | 2018-05-02 10:26 | PN ---
Progress Note, Physician History of Present Illness: Dyspnea, cough and wheeze improving with bipap nightly. - Current Medication List Current Medications: Active Medications Albuterol/Ipratropium (Duoneb -) 1 amp NEB Q4H [facility] Last Admin: 05/02/18 07:49 Dose: 1 amp Amlodipine Besylate (Norvasc -) 5 mg PO DAILY [facility] Last Admin: 05/02/18 09:21 Dose: 5 mg Enoxaparin Sodium (Lovenox -) 40 mg SQ DAILY [facility] Last Admin: 05/02/18 09:21 Dose: 40 mg Furosemide (Lasix Injection -) 80 mg IVPUSH BID@0600,1400 [facility] Last Admin: 05/02/18 05:10 Dose: 80 mg Ceftriaxone Sodium 1 gm/ (Dextrose) 50 mls @ 100 mls/hr IVPB DAILY [facility]; Protocol Last Admin: 05/02/18 09:20 Dose: 100 mls/hr Azithromycin 500 mg/ Dextrose 250 mls @ 250 mls/hr IVPB DAILY [facility] Last Admin: 05/02/18 09:20 Dose: 250 mls/hr Methylprednisolone Sodium Succinate (Solu-Medrol -) 40 mg IVPUSH Q6H-IV [facility] Last Admin: 05/02/18 09:21 Dose: 40 mg Metoprolol Succinate (Toprol Xl -) 25 mg PO DAILY [facility] Last Admin: 05/02/18 09:21 Dose: 25 mg Nicotine (Nicoderm Patch -) 21 mg TD DAILY [facility] Last Admin: 05/02/18 09:21 Dose: 21 mg Pantoprazole Sodium (Protonix Iv) 40 mg IVPUSH DAILY [facility] Last Admin: 05/02/18 09:20 Dose: 40 mg Spironolactone (Aldactone -) 25 mg PO DAILY [facility] Last Admin: 05/02/18 09:21 Dose: 25 mg Valsartan (Diovan -) 160 mg PO BID [facility] Last Admin: 05/02/18 09:21 Dose: 160 mg - Objective Vital Signs: Vital Signs Temperature 98.7 F 05/02/18 09:39 Pulse Rate 86 05/02/18 09:39 Respiratory Rate 22 05/02/18 09:39 Blood Pressure 140/68 05/02/18 09:39 O2 Sat by Pulse Oximetry (%) 92 L 05/02/18 07:55 Constitutional: Yes: No Distress, Calm Neck: Yes: Supple Cardiovascular: Yes: Regular Rate and Rhythm Respiratory: Yes: Regular, Diminished, SOB Gastrointestinal: Yes: Normal Bowel Sounds, Soft, Abdomen, Obese Edema: Yes Edema: LLE: Trace, RLE: Trace Labs: CBC, BMP 05/02/18 05:30 05/02/18 05:30 INR, PTT INR 1.13 (0.83-1.09) H 04/29/18 15:30 - ....Imaging Chest X-ray: Report Reviewed (Improved congestion) Problem List - Problems (1) Acute on chronic respiratory failure with hypoxia and hypercapnia Code(s): J96.21 - ACUTE AND CHRONIC RESPIRATORY FAILURE WITH HYPOXIA; J96.22 - ACUTE AND CHRONIC RESPIRATORY FAILURE WITH HYPERCAPNIA (2) COPD exacerbation Code(s): J44.1 - CHRONIC OBSTRUCTIVE PULMONARY DISEASE W (ACUTE) EXACERBATION (3) Cor pulmonale Code(s): I27.81 - COR PULMONALE (CHRONIC) (4) Obesity hypoventilation syndrome Code(s): E66.2 - MORBID (SEVERE) OBESITY WITH ALVEOLAR HYPOVENTILATION (5) Pulmonary HTN Code(s): I27.20 - PULMONARY HYPERTENSION, UNSPECIFIED (6) Morbid obesity Code(s): E66.01 - MORBID (SEVERE) OBESITY DUE TO EXCESS CALORIES (7) Sleep apnea Code(s): G47.30 - SLEEP APNEA, UNSPECIFIED Qualifiers: Sleep apnea type: obstructive Qualified Code(s): G47.33 - Obstructive sleep apnea (adult) (pediatric) (8) Diastolic dysfunction Code(s): I51.9 - HEART DISEASE, UNSPECIFIED Assessment/Plan Echocardiography dated 07/30/2017 revealed severe right sided dilation with moderate TR and severe pulmonary HTN 1. Acute hypoxemic/hypercapneic respiratory failure, related to 2. Acute exacerbation of chronic obstructive pulmonary disease, possible pneumonia in context of medication noncompliance and loss of insurance coverage 3. Morbid obesity/hypoventilation syndrome with 4. Severe pulmonary hypertension with cor pulmonale, clinical class II-III NYHA classification failure 5. Diastolic LV dysfunction with chronic class 0-I NYHA classification LV congestive heart failure 6. Tobacco abuse PLAN: 1. Decrease IV Lasix and continue Aldactone 25 qd 2. Continue Diovan 160 bid 3. Continue Norvasc 5 qd 4. Continue Toprol XL 25 qd with caution and close monitoring of respiratory status 5. Continue IV steroids with GI protection, bronchodilators, empiric abx, bipap nightly and FIO2 to maintain saO2>90% 6. F/u echocardiography for evaluation LV and RV and RVSP measurement 7. Patient was strongly counselled smoking cessation, dietary restriction including caloric restrictions and weight reduction, emphasized importance of medication compliance and maintenance of insured status
[2018-05-02] MEDS ORDERED: FUROSEMIDE 40 MG/4 ML INJECTABLE VIAL IVPUSH SCH (10:36)
[2018-05-02 10:52] LABS: ANISOCYTOSIS 2+; MACROCYTOSIS 0; PLATELET ESTIMATE NORMAL
--- NOTE | 2018-05-02 12:02 | PN ---
Physical Exam: SUBJECTIVE: Patient seen and examined. Feeling a little better, on nasal canula. OBJECTIVE: Vital Signs Period Temp Pulse Resp BP Sys/Melgoza Pulse Ox Last 24 Hr 98.2 F-99.1 F 79-92 20-22 119-154/68-86 85-97 GENERAL: The patient is awake, alert, and fully oriented, in no acute distress. LUNGS: Mechanical breath sounds, no wheezing, speaking in full sentences, no accessory muscle use HEART: Regular rate and rhythm, S1, S2 ABDOMEN: Soft, obese LOWER EXTREMITIES: 2+ pulses, warm, well-perfused, 2+ edema, venous stasis changes bilaterally NEUROLOGICAL: Cranial nerves II through XII grossly intact. Normal speech SKIN: Warm, dry Laboratory Results - last 24 hr 05/01/18 05/02/18 05/02/18 06:46 05:30 05:30 WBC 10.9 H RBC 5.04 Hgb 13.2 Hct 43.0 MCV 85.3 MCH 26.2 MCHC 30.7 L RDW 19.5 H Plt Count 186 MPV 8.0 Absolute Neuts (auto) 10.2 Total Counted 100 Neutrophils % 94.1 H Neutrophils % (Manual) 97.0 H 92.6 H Band Neutrophils % 2.1 Lymphocytes % 3.6 L D Lymphocytes % (Manual) 2.0 L D 4.2 L D Monocytes % 2.2 L Monocytes % (Manual) 1 L D 0 L D Eosinophils % 0.0 Eosinophils % (Manual) 0.0 D Basophils % 0.1 Basophils % (Manual) 0.0 Myelocytes % (Man) 1 Promyelocytes % (Man) 0 Blast Cells % (Manual) 0 Nucleated RBC % 0 Metamyelocytes 0 Hypochromia 1+ Platelet Estimate Adequate Normal Polychromasia 1+ Poikilocytosis 0 Anisocytosis 2+ Microcytosis 1+ Macrocytosis 0 Sodium 140 Potassium 4.7 Chloride 93 L Carbon Dioxide 46 H Anion Gap 1 L BUN 21 H Creatinine 0.7 Creat Clearance w eGFR > 60 Random Glucose 123 H Calcium 8.6 Magnesium 2.3 Total Bilirubin 0.3 AST 14 L D ALT 24 Alkaline Phosphatase 72 D Total Protein 6.8 Albumin 3.2 L Active Medications Generic Name Dose Route Start Last Admin Trade Name Freq PRN Reason Stop Dose Admin Albuterol/Ipratropium 1 amp 04/29/18 20:00 05/02/18 07:49 Duoneb - NEB 1 amp Q4H MINDI Administration Amlodipine Besylate 5 mg 04/29/18 23:09 05/02/18 09:21 Norvasc - PO 5 mg DAILY MINDI Administration Enoxaparin Sodium 40 mg 04/30/18 10:00 05/02/18 09:21 Lovenox - SQ 40 mg DAILY MINDI Administration Furosemide 40 mg 05/02/18 10:36 Lasix Injection - IVPUSH BID@0600,1400 MINDI Ceftriaxone Sodium 1 gm/ 50 mls @ 100 mls/hr 04/30/18 10:00 05/02/18 09:20 Dextrose IVPB 100 mls/hr DAILY MINDI Administration Protocol Azithromycin 500 mg/ Dextrose 250 mls @ 250 mls/hr 04/30/18 10:00 05/02/18 09 :20 IVPB 250 mls/hr DAILY MINDI Administration Methylprednisolone Sodium Succinate 40 mg 04/30/18 03:00 05/02/18 09:21 Solu-Medrol - IVPUSH 40 mg Q6H-IV MINDI Administration Metoprolol Succinate 25 mg 05/02/18 10:00 05/02/18 09:21 Toprol Xl - PO 25 mg DAILY MINDI Administration Nicotine 21 mg 04/30/18 23:00 05/02/18 09:21 Nicoderm Patch - TD 21 mg DAILY MINDI Administration Pantoprazole Sodium 40 mg 04/30/18 10:00 05/02/18 09:20 Protonix Iv IVPUSH 40 mg DAILY MINDI Administration Spironolactone 25 mg 05/01/18 11:45 05/02/18 09:21 Aldactone - PO 25 mg DAILY MINDI Administration Valsartan 160 mg 04/29/18 23:15 05/02/18 09:21 Diovan - PO 160 mg BID MINDI Administration ASSESSMENT/PLAN: 53 year-old male with a PMH significant for asthma/COPD, sleep apnea, morbid obesity, obesity hypoventilation syndrome, pulmonary hypertension, cor pulmonale , diastolic heart failure, and recurrent hypoxic and hypercapnic respiratory failure requiring intubation (07/2017). Acute on chronic hypoxic and hypercapnic respiratory failure, multifactorial --morbid obesity, obesity hypoventilation syndrome, asthma, COPD, sleep apnea , heart failure --on NC; keep SpO2 88-92% to prevent worsening V/Q mismatch --continue IV steroids --duonebs --IV protonix Severe pulmonary hypertension with cor pulmonale Acute on chronic diastolic heart failure --at time of discharge from last admission, patient's dry weight was 168 kg, today 183.8kg on bedscale --increase Lasix IV 80mg BID; continue spironolactone --05/02 Echo: LV normal; mild cLVH; impartial relaxation; RV moderate to severely reduced r/o community acquired pneumonia --questionable density medial right base --patient unable to lie flat for CT --cultures negative to date --continue ceftriaxone (day #3), azithromycin (day #3) Hypertension --continue amlodipine, valsartan FEN Fluids: PO intake adequate Electrolytes: replete as indicated Nutrition: low fat, low sodium DVT prophylaxis: subq lovenox Dispo: continues to require inpatient care. Full code. Visit type - Emergency Visit Emergency Visit: Yes ED Registration Date: 04/29/18 Care time: The patient presented to the Emergency Department on the above date and was hospitalized for further evaluation of their emergent condition. - New Patient This patient is new to me today: No - Critical Care Critical Care patient: No
--- NOTE | 2018-05-02 12:18 | PN ---
Progress Note (short form) - Note Progress Note: Breathing is better today. Currently on 4 L NC O2. NIPPV overnight. Still with some cough and wheezing. Intake & Output 04/29/18 04/30/18 05/01/18 05/02/18 23:59 23:59 23:59 23:59 Intake Total 041 518 1390 480 Output Total 1200 2675 3300 3200 [facility] -1070 -2015 -1698 -2720 Weight 367 lb Last Vital Signs Temp Pulse Resp BP Pulse Ox 98.7 F 86 22 140/68 92 L 05/02/18 09:39 05/02/18 09:39 05/02/18 09:39 05/02/18 09:39 05/02/18 07:55 Active Medications Albuterol/Ipratropium (Duoneb -) 1 amp NEB Q4H [facility] Last Admin: 05/02/18 11:45 Dose: 1 amp Amlodipine Besylate (Norvasc -) 5 mg PO DAILY [facility] Last Admin: 05/02/18 09:21 Dose: 5 mg Enoxaparin Sodium (Lovenox -) 40 mg SQ DAILY [facility] Last Admin: 05/02/18 09:21 Dose: 40 mg Furosemide (Lasix Injection -) 40 mg IVPUSH BID@0600,1400 [facility] Ceftriaxone Sodium 1 gm/ (Dextrose) 50 mls @ 100 mls/hr IVPB DAILY [facility]; Protocol Last Admin: 05/02/18 09:20 Dose: 100 mls/hr Azithromycin 500 mg/ Dextrose 250 mls @ 250 mls/hr IVPB DAILY [facility] Last Admin: 05/02/18 09:20 Dose: 250 mls/hr Methylprednisolone Sodium Succinate (Solu-Medrol -) 40 mg IVPUSH Q6H-IV MINDI Last Admin: 05/02/18 09:21 Dose: 40 mg Metoprolol Succinate (Toprol Xl -) 25 mg PO DAILY [facility] Last Admin: 05/02/18 09:21 Dose: 25 mg Nicotine (Nicoderm Patch -) 21 mg TD DAILY [facility] Last Admin: 05/02/18 09:21 Dose: 21 mg Pantoprazole Sodium (Protonix Iv) 40 mg IVPUSH DAILY [facility] Last Admin: 05/02/18 09:20 Dose: 40 mg Spironolactone (Aldactone -) 25 mg PO DAILY [facility] Last Admin: 05/02/18 09:21 Dose: 25 mg Valsartan (Diovan -) 160 mg PO BID [facility]I Last Admin: 05/02/18 09:21 Dose: 160 mg Gen: Mildly tachypneic on NC O2, NAD Heart: RRR Lung: distant breath sounds, scattered rhonchi Abd: soft, nontender Ext: + edema Laboratory Results - last 24 hr 05/01/18 05/02/18 05/02/18 06:46 05:30 05:30 WBC 10.9 H RBC 5.04 Hgb 13.2 Hct 43.0 MCV 85.3 MCH 26.2 MCHC 30.7 L RDW 19.5 H Plt Count 186 MPV 8.0 Absolute Neuts (auto) 10.2 Total Counted 100 Neutrophils % 94.1 H Neutrophils % (Manual) 97.0 H 92.6 H Band Neutrophils % 2.1 Lymphocytes % 3.6 L D Lymphocytes % (Manual) 2.0 L D 4.2 L D Monocytes % 2.2 L Monocytes % (Manual) 1 L D 0 L D Eosinophils % 0.0 Eosinophils % (Manual) 0.0 D Basophils % 0.1 Basophils % (Manual) 0.0 Myelocytes % (Man) 1 Promyelocytes % (Man) 0 Blast Cells % (Manual) 0 Nucleated RBC % 0 Metamyelocytes 0 Hypochromia 1+ Platelet Estimate Adequate Normal Polychromasia 1+ Poikilocytosis 0 Anisocytosis 2+ Microcytosis 1+ Macrocytosis 0 Sodium 140 Potassium 4.7 Chloride 93 L Carbon Dioxide 46 H Anion Gap 1 L BUN 21 H Creatinine 0.7 Creat Clearance w eGFR > 60 Random Glucose 123 H Calcium 8.6 Magnesium 2.3 Total Bilirubin 0.3 AST 14 L D ALT 24 Alkaline Phosphatase 72 D Total Protein 6.8 Albumin 3.2 L A/P Acute on Chronic Hypoxic and Hypercapneic Respiratory Failure Acute COPD Exacerbation r/o Pneumonia LV diastolic Dysfunction Pulmonary HTN Morbid Obesity RANJIT/OHS Smoker - continue medrol - inhaled bronchodilators standing and PRN - O2 to keep SpO2 88-92% to prevent worsening V/Q mismatch - BiPAP as needed to assist in work of breathing - IV lasix - monitor urine output, creatinine - daily weights - agree with empiric antibiotics for now - CT chest when more stable - smoking cessation - encourage weight loss - DVT prophylaxis Problem List - Problems (1) Acute on chronic respiratory failure with hypoxia and hypercapnia Code(s): J96.21 - ACUTE AND CHRONIC RESPIRATORY FAILURE WITH HYPOXIA; J96.22 - ACUTE AND CHRONIC RESPIRATORY FAILURE WITH HYPERCAPNIA (2) COPD exacerbation Code(s): J44.1 - CHRONIC OBSTRUCTIVE PULMONARY DISEASE W (ACUTE) EXACERBATION (3) Cor pulmonale Code(s): I27.81 - COR PULMONALE (CHRONIC) (4) Obesity hypoventilation syndrome Code(s): E66.2 - MORBID (SEVERE) OBESITY WITH ALVEOLAR HYPOVENTILATION (5) Pulmonary HTN Code(s): I27.20 - PULMONARY HYPERTENSION, UNSPECIFIED (6) Morbid obesity Code(s): E66.01 - MORBID (SEVERE) OBESITY DUE TO EXCESS CALORIES (7) Sleep apnea Code(s): G47.30 - SLEEP APNEA, UNSPECIFIED Qualifiers: Sleep apnea type: obstructive Qualified Code(s): G47.33 - Obstructive sleep apnea (adult) (pediatric) (8) Diastolic dysfunction Code(s): I51.9 - HEART DISEASE, UNSPECIFIED A/P Acute on Chronic Hypoxic and Hypercapneic Respiratory Failure Acute COPD Exacerbation r/o Pneumonia LV diastolic Dysfunction Pulmonary HTN Morbid Obesity RANJIT/OHS Smoker - Medrol - inhaled bronchodilators standing and PRN - O2 to keep SpO2 88-92% to prevent worsening V/Q mismatch - NIPPV as needed to assist in work of breathing - IV lasix - monitor urine output, creatinine - daily weights - Empiric antibiotics for now - smoking cessation - encourage weight loss - DVT prophylaxis Dr Donaldson
--- NOTE | 2018-05-02 14:31 | ECHO ---
Name: GRACE FRANCIS Exam:Adult Echocardiogram Study Date: 05/02/2018 10:44 AM Age: 53 yrs Reason For Study: CHF Height: 70 in Weight: 367 lb BSA: 2.7 m2 MMode/2D Measurements & Calculations IVSd: 1.3 cm Ao root diam: 3.4 cm LVIDd: 5.7 cm LA dimension: 3.6 cm LVIDs: 3.3 cm LVPWd: 1.2 cm LVPWs: 2.0 cm EDV(Teich): 157.7 ml ESV(Teich): 43.5 ml LAV (MOD-bp): 40.0 ml Doppler Measurements & Calculations MV E max maximo: 117.8 cm/sec Ao V2 max: 181.0 cm/sec MV A max maximo: 126.5 cm/sec Ao max P.1 mmHg MV E/A: 0.93 MV dec time: 0.19 sec LV V1 max P.5 mmHg PA V2 max: 124.9 cm/sec LV V1 max: 127.8 cm/sec PA max P.2 mmHg Med Peak E' Maximo: 6.5 cm/sec Med E/e': 18.2 Lat Peak E' Maximo: 8.2 cm/sec Lat E/e': 14.3 Procedure Technically limited study. The patient was in normal sinus rhythm during the exam. Left Ventricle The left ventricle is normal in size. There is mild concentric left ventricular hypertrophy. Left mariah tricular systolic function is normal. Ejection Fraction = 60-65%. E/A reversal with TDI suggests impaired rela xation with elevated filling pressure (E' 6.5 and E/E' 18). No regional wall motion abnormalities noted. Right Ventricle The right ventricle is mildly dilated. The right ventricular systolic function is moderate to severel y reduced. Atria The left atrial size is normal. Right atrial size is normal. Mitral Valve There is mild mitral annular calcification. There is no mitral regurgitation noted. Tricuspid Valve The tricuspid valve is normal in structure and function. No tricuspid regurgitation. PASP was not niyah sured. Aortic Valve The aortic valve is normal in structure and function. No aortic regurgitation is present. Pulmonic Valve The pulmonic valve is not well visualized. Great Vessels The aortic root is normal size. Pericardium/Pleura There is no pericardial effusion. Interpretation Summary Technically limited study The left ventricle is normal in size. There is mild concentric left ventricular hypertrophy. Left ventricular systolic function is normal. No regional wall motion abnormalities noted. Ejection Fraction = 60-65%. E/A reversal with TDI suggests impaired relaxation with elevated filling pressure (E' 6.5 and E/E' 18 ) The right ventricle is mildly dilated. The right ventricular systolic function is moderate to severely reduced. The left atrial size is normal. Right atrial size is normal. There is mild mitral annular calcification. PASP was not measured There is no pericardial effusion. Velasquez Gaines MD 05/02/2018 02:30 PM
[2018-05-02] MEDS ORDERED: FUROSEMIDE 40 MG/4 ML INJECTABLE VIAL IVPUSH ONE (15:03)
[2018-05-03] MEDS: ACETAMINOPHEN 325 MG TABLET (FP) PO PRN ×2 (01:54→10:18)
[2018-05-03] MEDS: methylPREDNISolone NA SUCC 40 MG/1 ML VIAL IVPUSH SCH ×4 (03:00→22:10)
[2018-05-03] MEDS: ALBUTEROL SO4 2.5/IPRATROPIUM 0.5 INH SOL 3 ML VIAL.NEB. NEB SCH ×6 (03:02→23:53)
[2018-05-03 06:17] LABS: BASO % 0.1 % (0-2.0); HEMATOCRIT 45.3 % (35.4-49); HEMOGLOBIN 13.9 GM/dL (11.7-16.9); LYMPH % 4.1 % (8-40); MCH 26.2 pg (25.7-33.7); MCHC 30.7 g/dl (32.0-35.9); MEAN CELL VOLUME 85.2 fl (80-96); MEAN PLT VOLUME 7.7 fl (7.5-11.1); MONO % 2.2 % (3.8-10.2); NEUT % 93.6 % (42.8-82.8); PLATELET COUNT 175 K/MM3 (134-434); RBC 5.32 M/mm3 (4.00-5.60); RDW 18.9 % (11.9-15.9); WHITE BLOOD COUNT 10.2 K/mm3 (4.0-10.0)
[2018-05-03 06:51] LABS: CHLORIDE 89 mmol/L (98-107); POTASSIUM 4.2 mmol/L (3.5-5.1); SODIUM 138 mmol/L (136-145)
[2018-05-03] MEDS: FUROSEMIDE 40 MG/4 ML INJECTABLE VIAL IVPUSH SCH ×2 (06:57→15:08)
[2018-05-03 07:02] LABS: ALBUMIN 3.2 g/dl (3.4-5.0); ALK PHOS 71 U/L (45-117); BILIRUBIN,TOTAL 0.3 mg/dL (0.2-1.0); BLOOD UREA NITROGEN 22 mg/dL (7-18); CALCIUM 8.8 mg/dL (8.5-10.1); CREATININE 0.7 mg/dL (0.7-1.3); GLUCOSE,RANDOM 139 mg/dL (74-106); MAGNESIUM 2.3 mg/dL (1.8-2.4); SGOT/AST 15 U/L (15-37); SGPT/ALT 28 U/L (12-78); TOT PROT 6.9 g/dl (6.4-8.2)
[2018-05-03 07:41] LABS: ANION GAP -4 (8-16); CO2 53 mmol/L (21-32)
--- NOTE | 2018-05-03 08:56 | PN ---
Physical Exam: SUBJECTIVE: Patient seen and examined at bedside. On nasal canula. OBJECTIVE: Vital Signs Period Temp Pulse Resp BP Sys/Melgoza Pulse Ox Last 24 Hr 97.9 F-98.7 F 86-101 20-24 114-164/62-86 87-96 GENERAL: The patient is awake, alert, and fully oriented, in no acute distress. LUNGS: Mechanical breath sounds, no wheezing, speaking in full sentences, no accessory muscle use HEART: Regular rate and rhythm, S1, S2 ABDOMEN: Soft, obese LOWER EXTREMITIES: 2+ pulses, warm, well-perfused, 2+ edema, venous stasis changes bilaterally NEUROLOGICAL: Cranial nerves II through XII grossly intact. Normal speech SKIN: Warm, dry Laboratory Results - last 24 hr 05/02/18 05/03/18 05/03/18 05:30 05:30 05:30 WBC 10.2 H RBC 5.32 Hgb 13.9 Hct 45.3 MCV 85.2 MCH 26.2 MCHC 30.7 L RDW 18.9 H Plt Count 175 MPV 7.7 Absolute Neuts (auto) 9.5 Neutrophils % 93.6 H Neutrophils % (Manual) 92.6 H Band Neutrophils % 2.1 Lymphocytes % 4.1 L Lymphocytes % (Manual) 4.2 L D Monocytes % 2.2 L Monocytes % (Manual) 0 L D Eosinophils % 0.0 Eosinophils % (Manual) 0.0 D Basophils % 0.1 Basophils % (Manual) 0.0 Myelocytes % (Man) 1 Promyelocytes % (Man) 0 Blast Cells % (Manual) 0 Nucleated RBC % 0 0 Metamyelocytes 0 Hypochromia 1+ Platelet Estimate Normal Polychromasia 1+ Poikilocytosis 0 Anisocytosis 2+ Microcytosis 1+ Macrocytosis 0 Sodium 138 Potassium 4.2 Chloride 89 L Carbon Dioxide 53 H Anion Gap -4 L BUN 22 H Creatinine 0.7 Creat Clearance w eGFR > 60 Random Glucose 139 H Calcium 8.8 Magnesium 2.3 Total Bilirubin 0.3 AST 15 ALT 28 Alkaline Phosphatase 71 Total Protein 6.9 Albumin 3.2 L Active Medications Generic Name Dose Route Start Last Admin Trade Name Freq PRN Reason Stop Dose Admin Acetaminophen 650 mg 05/03/18 01:25 05/03/18 01:54 Tylenol - PO 650 mg Q6H PRN Administration FEVER Albuterol/Ipratropium 1 amp 04/29/18 20:00 05/03/18 03:02 Duoneb - NEB 1 amp Q4H MINDI Administration Amlodipine Besylate 5 mg 04/29/18 23:09 05/02/18 09:21 Norvasc - PO 5 mg DAILY MINDI Administration Enoxaparin Sodium 40 mg 04/30/18 10:00 05/02/18 09:21 Lovenox - SQ 40 mg DAILY MINDI Administration Furosemide 80 mg 05/02/18 15:03 05/03/18 06:57 Lasix Injection - IVPUSH 80 mg BID@0600,1400 MINDI Administration Ceftriaxone Sodium 1 gm/ 50 mls @ 100 mls/hr 04/30/18 10:00 05/02/18 09:20 Dextrose IVPB 100 mls/hr DAILY MINDI Administration Protocol Azithromycin 500 mg/ Dextrose 250 mls @ 250 mls/hr 04/30/18 10:00 05/02/18 09 :20 IVPB 250 mls/hr DAILY MINDI Administration Methylprednisolone Sodium Succinate 40 mg 04/30/18 03:00 05/03/18 03:00 Solu-Medrol - IVPUSH 40 mg Q6H-IV MINDI Administration Metoprolol Succinate 25 mg 05/02/18 10:00 05/02/18 09:21 Toprol Xl - PO 25 mg DAILY MINDI Administration Nicotine 21 mg 04/30/18 23:00 05/02/18 09:21 Nicoderm Patch - TD 21 mg DAILY MINDI Administration Pantoprazole Sodium 40 mg 04/30/18 10:00 05/02/18 09:20 Protonix Iv IVPUSH 40 mg DAILY MINDI Administration Spironolactone 25 mg 05/01/18 11:45 05/02/18 09:21 Aldactone - PO 25 mg DAILY MINDI Administration Valsartan 160 mg 04/29/18 23:15 05/02/18 21:35 Diovan - PO 160 mg BID MINDI Administration ASSESSMENT/PLAN: 53 year-old male with a PMH significant for asthma/COPD, sleep apnea, morbid obesity, obesity hypoventilation syndrome, pulmonary hypertension, cor pulmonale , diastolic heart failure, and recurrent hypoxic and hypercapnic respiratory failure requiring intubation (07/2017). Acute on chronic hypoxic and hypercapnic respiratory failure, multifactorial --morbid obesity, obesity hypoventilation syndrome, asthma, COPD, sleep apnea , heart failure --tolerlating nasal canula, keep SpO2 88-92% to prevent worsening V/Q mismatch --continue IV steroids --duonebs --IV protonix Severe pulmonary hypertension with cor pulmonale Diastolic heart failure --at time of discharge from last admission, patient's dry weight was 168kg --no accurate weight on this admission; will discuss with nursing supervisor powdered metal --negative 4.2L so far --increase Lasix IV 80mg BID; continue spironolactone --echo pending r/o Community acquired pneumonia --questionable density medial right base --afebrile, no leukocytosis --cultures negative to date --repeat cxr in am --continue ceftriaxone (day #4), azithromycin (day #4) Hypertension --continue amlodipine, valsartan FEN Fluids: PO intake adequate Electrolytes: replete as indicated Nutrition: low fat, low sodium DVT prophylaxis: subq lovenox Dispo: continues to require inpatient care. Full code. Visit type - Emergency Visit Emergency Visit: Yes ED Registration Date: 04/29/18 Care time: The patient presented to the Emergency Department on the above date and was hospitalized for further evaluation of their emergent condition. - New Patient This patient is new to me today: No - Critical Care Critical Care patient: No
--- NOTE | 2018-05-03 08:57 | PN ---
Progress Note (short form) - Note Progress Note: Chief Complaint: Events noted, notes reviewed, dyspnea improved but not resolved , bilateral lower extremity edema resolving, remains on BiPAP History of Present Illness: Seen and examined on telemetry. Events noted, notes reviewed, dyspnea improved but not resolved, bilateral lower extremity edema resolving, remains on BiPAP Echocardiography dated 07/30/2017 revealed severe right sided dilation with moderate TR and severe pulmonary HTN - Current Medication List Current Medications Albuterol/Ipratropium (Duoneb -) 1 amp NEB Q4H [facility] Last Admin: 05/01/18 08:23 Dose: 1 amp Amlodipine Besylate (Norvasc -) 5 mg PO DAILY [facility] Last Admin: 05/01/18 10:17 Dose: 5 mg Enoxaparin Sodium (Lovenox -) 40 mg SQ DAILY [facility] Last Admin: 05/01/18 10:17 Dose: 40 mg Furosemide (Lasix Injection -) 40 mg IVPUSH BID@0600,1400 [facility] Last Admin: 05/01/18 06:32 Dose: 40 mg Ceftriaxone Sodium 1 gm/ (Dextrose) 50 mls @ 100 mls/hr IVPB DAILY [facility]; Protocol Last Admin: 05/01/18 11:11 Dose: 100 mls/hr Azithromycin 500 mg/ Dextrose 250 mls @ 250 mls/hr IVPB DAILY [facility] Last Admin: 05/01/18 10:18 Dose: 250 mls/hr Methylprednisolone Sodium Succinate (Solu-Medrol -) 40 mg IVPUSH Q6H-IV [facility] Last Admin: 05/01/18 10:00 Dose: 40 mg Nicotine (Nicoderm Patch -) 21 mg TD DAILY [facility] Last Admin: 05/01/18 10:18 Dose: 21 mg Pantoprazole Sodium (Protonix Iv) 40 mg IVPUSH DAILY [facility] Last Admin: 05/01/18 10:17 Dose: 40 mg Valsartan (Diovan -) 160 mg PO BID [facility] Last Admin: 05/01/18 10:17 Dose: 160 mg Review of Systems Constitutional: denies Chills or Fever Respiratory: denies Cough or Sputum Production Cardiovascular: As noted above Gastrointestinal: denies Nausea, Vomiting, Diarrhea, Constipation or Abdominal Pain Genitourinary: No Symptoms Reported Musculoskeletal: reports Bilateral Knee Discomfort - Objective Vital Signs: Last Vital Signs Temp Pulse Resp BP Pulse Ox 98.1 F 95 H 20 138/61 96 08/05/18 05:00 05/01/18 05:00 05/01/18 05:00 05/01/18 05:00 05/01/18 00:03 Intake & Output 04/28/18 04/29/18 04/30/18 05/01/18 23:59 23:59 23:59 23:59 Intake Total 130 660 390 Output Total 1200 2398 1600 Balance -1069 Weight 367 lb Neck: Supple Negative JVD No Bruit Cardiovascular: S1 S2 Regular Rate and Rhythm Respiratory: Diminished Breath Sounds at the Bases Gastrointestinal: Soft Benign Normal Bowel Sounds Ext: Edema Labs: ABG Results ABG pH 7.23 (7.35-7.45) L* 05/01/18 06:10 ABG pCO2 at Pt Temp 114.0 mmHg (35-45) H* D 05/01/18 06:10 ABG pO2 at Pt Temp 72.7 mmHg (80-100) L 05/01/18 06:10 ABG HCO3 45.8 meq/L (22-26) H* 05/01/18 06:10 ABG O2 Sat (Measured) 92.2 % (90-98.9) 05/01/18 06:10 ABG O2 Content 17.6 % vol (15-22) 05/01/18 06:10 ABG Base Excess 12.8 meq/l (-2-2) H 05/01/18 06:10 CBC, BMP 05/01/18 06:46 04/30/18 05:30 Hepatic Panel Total Bilirubin 0.4 mg/dL (0.2-1.0) 04/30/18 05:30 AST 19 U/L (15-37) 04/30/18 05:30 ALT 28 U/L (12-78) 04/30/18 05:30 Alkaline Phosphatase 83 U/L (45-117) 04/30/18 05:30 Albumin 3.0 g/dl (3.4-5.0) L 04/30/18 05:30 Assessment/Plan ASSESSMENT: 1. Acute hypoxemic/hypercapneic respiratory failure, related to 2. Acute exacerbation of chronic obstructive pulmonary disease, possible pneumonia 3. Morbid obesity/hypoventilation syndrome with 4. Severe pulmonary hypertension with cor pulmonale, clinical class II-III NYHA classification failure 5. Diastolic LV dysfunction with chronic class 0-I NYHA classification LV congestive heart failure 6. Tobacco abuse PLAN: 1. Continue IV Lasix and add Aldactone 2. Continue Diovan 3. Continue Norvasc 4. Add B-Blockers with caution and close monitoring of respiratory status 5. Continue Steroids and Bronchodilators 6. Echocardiography for evaluation LV and RV and RVSP measurement 7. Patient was strongly counselled smoking cessation, dietary restriction including caloric restrictions and weight reduction Camden Henson M.D.
[2018-05-03] MEDS ORDERED: cefTRIAXone SODIUM 1 GM VIAL ONE (09:17)
[2018-05-03] MEDS ORDERED: DEXTROSE 5%-WATER - 50 ML IVPB ONE (09:18)
[2018-05-03] MEDS: VALSARTAN 160 MG TABLET (UD) PO SCH ×2 (09:30→22:10)
[2018-05-03] MEDS: ENOXAPARIN NA (PORCINE) 40 MG/0.4 ML DISP.SYRIN SQ SCH (09:30)
[2018-05-03] MEDS: NICOTINE 21 MG/24 HOURS TOPICAL PATCH TD SCH (09:30)
[2018-05-03] MEDS: PANTOPRAZOLE SODIUM 40 MG VIAL IVPUSH SCH (09:31)
[2018-05-03] MEDS: amLODIPine BESYLATE 5 MG TABLET (FP) PO SCH (09:31)
[2018-05-03] MEDS: CEFTRIAXONE 1 GM in DEXTROSE 5%-WATER - 50 ML IVPB SCH (09:31)
[2018-05-03] MEDS: SPIRONOLACTONE 25 MG TABLET (FP) PO SCH (09:31)
[2018-05-03] MEDS: metoPROLOL SUCCINATE 25 MG TAB.SR.24H (FP) PO SCH (09:32)
[2018-05-03] MEDS: AZITHROMYCIN IVPB 500 MG in DEXTROSE 5%-WATER - 250 ML IVPB SCH (10:18)
[2018-05-03 11:08] LABS: ARTERIAL BLOOD GAS PO2 54.2 mmHg (80-100); ARTERIAL BLOOD GAS pH 7.41 (7.35-7.45)
[2018-05-03 11:16] LABS: ALLENS TEST POSITIVE
[2018-05-03 11:18] LABS: ARTERIAL BLOOD GAS PCO2 78.2 mmHg (35-45)
[2018-05-03 12:09] LABS: ANISOCYTOSIS 2+; MACROCYTOSIS 1+; OVALOCYTE 1+; PLATELET ESTIMATE NORMAL
--- NOTE | 2018-05-03 14:17 | PN ---
Progress Note (short form) - Note Progress Note: Breathing is better today. Currently on 3 L NC O2. ABG noted. NIPPV overnight. Still with some cough and wheezing. Intake & Output 04/30/18 05/01/18 05/02/18 05/03/18 23:59 23:59 23:59 23:59 Intake Total 660 1602 480 15 Output Total 9467 5580 2314 1800 [facility] -2015 -1698 -6620 -1785 Weight 405 lb 4 oz 403 lb Last Vital Signs Temp Pulse Resp BP Pulse Ox 98.4 F 89 22 152/92 92 L 05/03/18 09:46 05/03/18 11:24 05/03/18 09:46 05/03/18 09:46 05/03/18 11:24 Active Medications Acetaminophen (Tylenol -) 650 mg PO Q6H PRN PRN Reason: FEVER Last Admin: 05/03/18 10:18 Dose: 650 mg Albuterol/Ipratropium (Duoneb -) 1 amp NEB Q4H [facility] Last Admin: 05/03/18 08:25 Dose: 1 amp Amlodipine Besylate (Norvasc -) 5 mg PO DAILY [facility] Last Admin: 05/03/18 09:31 Dose: 5 mg Enoxaparin Sodium (Lovenox -) 40 mg SQ DAILY [facility] Last Admin: 05/03/18 09:30 Dose: 40 mg Furosemide (Lasix Injection -) 80 mg IVPUSH BID@0600,1400 [facility] Last Admin: 05/03/18 06:57 Dose: 80 mg Ceftriaxone Sodium 1 gm/ (Dextrose) 50 mls @ 100 mls/hr IVPB DAILY [facility]; Protocol Last Admin: 05/03/18 09:31 Dose: 100 mls/hr Azithromycin 500 mg/ Dextrose 250 mls @ 250 mls/hr IVPB DAILY [facility] Last Admin: 05/03/18 10:18 Dose: 250 mls/hr Methylprednisolone Sodium Succinate (Solu-Medrol -) 40 mg IVPUSH Q6H-IV [facility] Last Admin: 05/03/18 09:30 Dose: 40 mg Metoprolol Succinate (Toprol Xl -) 25 mg PO DAILY [facility] Last Admin: 05/03/18 09:32 Dose: 25 mg Nicotine (Nicoderm Patch -) 21 mg TD DAILY [facility] Last Admin: 08/07/18 09:30 Dose: 21 mg Pantoprazole Sodium (Protonix Iv) 40 mg IVPUSH DAILY [facility] Last Admin: 05/03/18 09:31 Dose: 40 mg Spironolactone (Aldactone -) 25 mg PO DAILY [facility] Last Admin: 05/03/18 09:31 Dose: 25 mg Tramadol HCl (Ultram -) 50 mg PO Q8H PRN PRN Reason: PAIN LEVEL 6-10 Valsartan (Diovan -) 160 mg PO BID [facility] Last Admin: 05/03/18 09:30 Dose: 160 mg Gen: Mildly tachypneic on NC O2, NAD Heart: RRR Lung: distant breath sounds, scattered rhonchi Abd: soft, nontender Ext: + edema Laboratory Results - last 24 hr 05/03/18 05/03/18 05/03/18 05:30 05:30 11:00 WBC 10.2 H RBC 5.32 Hgb 13.9 Hct 45.3 MCV 85.2 MCH 26.2 MCHC 30.7 L RDW 18.9 H Plt Count 175 MPV 7.7 Absolute Neuts (auto) 9.5 Neutrophils % 93.6 H Neutrophils % (Manual) 90.9 H Band Neutrophils % 1.0 Lymphocytes % 4.1 L Lymphocytes % (Manual) 3.0 L D Monocytes % 2.2 L Monocytes % (Manual) 5 D Eosinophils % 0.0 Eosinophils % (Manual) 0.0 Basophils % 0.1 Basophils % (Manual) 0.0 Myelocytes % (Man) 0 D Promyelocytes % (Man) 0 Blast Cells % (Manual) 0 Nucleated RBC % 0 Metamyelocytes 0 Hypochromia 1+ Platelet Estimate Normal Polychromasia 1+ Poikilocytosis 0 Anisocytosis 2+ Microcytosis 1+ Macrocytosis 1+ Ovalocytes 1+ Puncture Site Right radial ABG pH 7.41 D ABG pCO2 at Pt Temp 78.2 H* D ABG pO2 at Pt Temp 54.2 L D ABG HCO3 48.6 H* ABG O2 Sat (Measured) 88.0 L ABG O2 Content 17.2 ABG Base Excess 19.0 H* Neto Test Positive O2 Delivery Device N/c Oxygen Flow Rate 3l Sodium 138 Potassium 4.2 Chloride 89 L Carbon Dioxide 53 H Anion Gap -4 L BUN 22 H Creatinine 0.7 Creat Clearance w eGFR > 60 Random Glucose 139 H Calcium 8.8 Magnesium 2.3 Total Bilirubin 0.3 AST 15 ALT 28 Alkaline Phosphatase 71 Total Protein 6.9 Albumin 3.2 L Problem List - Problems (1) Acute on chronic respiratory failure with hypoxia and hypercapnia Code(s): J96.21 - ACUTE AND CHRONIC RESPIRATORY FAILURE WITH HYPOXIA; J96.22 - ACUTE AND CHRONIC RESPIRATORY FAILURE WITH HYPERCAPNIA (2) COPD exacerbation Code(s): J44.1 - CHRONIC OBSTRUCTIVE PULMONARY DISEASE W (ACUTE) EXACERBATION (3) Cor pulmonale Code(s): I27.81 - COR PULMONALE (CHRONIC) (4) Obesity hypoventilation syndrome Code(s): E66.2 - MORBID (SEVERE) OBESITY WITH ALVEOLAR HYPOVENTILATION (5) Pulmonary HTN Code(s): I27.20 - PULMONARY HYPERTENSION, UNSPECIFIED (6) Morbid obesity Code(s): E66.01 - MORBID (SEVERE) OBESITY DUE TO EXCESS CALORIES (7) Sleep apnea Code(s): G47.30 - SLEEP APNEA, UNSPECIFIED Qualifiers: Sleep apnea type: obstructive Qualified Code(s): G47.33 - Obstructive sleep apnea (adult) (pediatric) (8) Diastolic dysfunction Code(s): I51.9 - HEART DISEASE, UNSPECIFIED A/P Acute on Chronic Hypoxic and Hypercapneic Respiratory Failure Acute COPD Exacerbation r/o Pneumonia LV diastolic Dysfunction Pulmonary HTN Morbid Obesity RANJIT/OHS Smoker - Medrol - inhaled bronchodilators standing and PRN - O2 @ 4 L NC to keep SpO2 88-92% to prevent worsening V/Q mismatch - NIPPV as needed to assist in work of breathing - IV lasix - monitor urine output, creatinine - daily weights - Empiric antibiotics for now - smoking cessation - encourage weight loss - DVT prophylaxis Dr Doanldson
[2018-05-04] MEDS: traMADol HCL 50 MG TABLET PO PRN ×3 (00:04→21:39)
[2018-05-04] MEDS: methylPREDNISolone NA SUCC 40 MG/1 ML VIAL IVPUSH SCH ×2 (02:43→11:35)
[2018-05-04] MEDS: ALBUTEROL SO4 2.5/IPRATROPIUM 0.5 INH SOL 3 ML VIAL.NEB. NEB SCH ×5 (03:40→20:55)
[2018-05-04] MEDS: FUROSEMIDE 40 MG/4 ML INJECTABLE VIAL IVPUSH SCH ×2 (06:24→16:00)
--- NOTE | 2018-05-04 07:56 | PN ---
Physical Exam: SUBJECTIVE: Patient seen and examined at bedside. OBJECTIVE: Vital Signs Period Temp Pulse Resp BP Sys/Melgoza Pulse Ox Last 24 Hr 97.4 F-98.5 F 86-112 21-22 134-160/84-99 90-94 GENERAL: The patient is awake, alert, and fully oriented, in no acute distress. LUNGS: Scattered rhonchi, distant breath sounds HEART: Regular rate and rhythm, S1, S2 ABDOMEN: Soft, obese LOWER EXTREMITIES: 2+ pulses, warm, well-perfused, 2+ edema, venous stasis changes bilaterally NEUROLOGICAL: Cranial nerves II through XII grossly intact. Normal speech SKIN: Warm, dry Laboratory Results - last 24 hr 05/03/18 05/03/18 05:30 11:00 Neutrophils % (Manual) 90.9 H Band Neutrophils % 1.0 Lymphocytes % (Manual) 3.0 L D Monocytes % (Manual) 5 D Eosinophils % (Manual) 0.0 Basophils % (Manual) 0.0 Myelocytes % (Man) 0 D Promyelocytes % (Man) 0 Blast Cells % (Manual) 0 Metamyelocytes 0 Hypochromia 1+ Platelet Estimate Normal Polychromasia 1+ Poikilocytosis 0 Anisocytosis 2+ Microcytosis 1+ Macrocytosis 1+ Ovalocytes 1+ Puncture Site Right radial ABG pH 7.41 D ABG pCO2 at Pt Temp 78.2 H* D ABG pO2 at Pt Temp 54.2 L D ABG HCO3 48.6 H* ABG O2 Sat (Measured) 88.0 L ABG O2 Content 17.2 ABG Base Excess 19.0 H* Neto Test Positive O2 Delivery Device N/c Oxygen Flow Rate 3l Active Medications Generic Name Dose Route Start Last Admin Trade Name Freq PRN Reason Stop Dose Admin Acetaminophen 650 mg 05/03/18 01:25 05/03/18 10:18 Tylenol - PO 650 mg Q6H PRN Administration FEVER Albuterol/Ipratropium 1 amp 04/29/18 20:00 05/04/18 03:40 Duoneb - NEB 1 amp Q4H [facility] Administration Amlodipine Besylate 5 mg 04/29/18 23:09 05/03/18 09:31 Norvasc - PO 5 mg DAILY [facility] Administration Enoxaparin Sodium 40 mg 04/30/18 10:00 08/07/18 09:30 Lovenox - SQ 40 mg DAILY [facility] Administration Furosemide 80 mg 05/02/18 15:03 05/04/18 06:24 Lasix Injection - IVPUSH 80 mg BID@0600,1400 [facility] Administration Ceftriaxone Sodium 1 gm/ 50 mls @ 100 mls/hr 04/30/18 10:00 05/03/18 09:31 Dextrose IVPB 100 mls/hr DAILY [facility] Administration Protocol Azithromycin 500 mg/ Dextrose 250 mls @ 250 mls/hr 04/30/18 10:00 05/03/18 10 :18 IVPB 250 mls/hr DAILY [facility] Administration Methylprednisolone Sodium Succinate 40 mg 04/30/18 03:00 05/04/18 02:43 Solu-Medrol - IVPUSH 40 mg Q6H-IV [facility] Administration Metoprolol Succinate 25 mg 05/02/18 10:00 05/03/18 09:32 Toprol Xl - PO 25 mg DAILY [facility] Administration Nicotine 21 mg 04/30/18 23:00 05/03/18 09:30 Nicoderm Patch - TD 21 mg DAILY [facility] Administration Pantoprazole Sodium 40 mg 05/04/18 10:00 Protonix - PO DAILY [facility] Spironolactone 25 mg 05/01/18 11:45 05/03/18 09:31 Aldactone - PO 25 mg DAILY [facility] Administration Tramadol HCl 50 mg 05/03/18 11:02 05/04/18 00:04 Ultram - PO 50 mg Q8H PRN Administration PAIN LEVEL 6-10 Valsartan 160 mg 04/29/18 23:15 05/03/18 22:10 Diovan - PO 160 mg BID [facility] Administration ASSESSMENT/PLAN 53 year-old male with a PMH significant for asthma/COPD, sleep apnea, morbid obesity, obesity hypoventilation syndrome, pulmonary hypertension, cor pulmonale , diastolic heart failure, and recurrent hypoxic and hypercapnic respiratory failure requiring intubation (07/2017). Acute on chronic hypoxic and hypercapnic respiratory failure, multifactorial --morbid obesity, obesity hypoventilation syndrome, asthma, COPD, sleep apnea , heart failure --tolerating nasal canula, keep SpO2 88-92% --switched to PO steroids, 120mg today, 120mg tomorrow, slow taper on discharge --duonebs --protonix --BiPAP at night and PRN Severe pulmonary hypertension with cor pulmonale Diastolic heart failure --8/6 Echo: LV normal, mild cLVH, impaired relaxation; RV moderately to severely reduced --decrease Lasix IV 40mg daily; discharge on Lasix PO 40mg BID and potassium supplements --continue spironolactone Community acquired pneumonia --questionable density medial right base, not seen on repeat cxr --afebrile, no leukocytosis --cultures negative to date --ceftriaxone x 5 days complete, azithromycin x 5 days complete Hypertension --continue amlodipine, valsartan FEN Fluids: PO intake adequate Electrolytes: replete as indicated Nutrition: low fat, low sodium DVT prophylaxis: subq lovenox Dispo: plan is to go to subacute pulmonary rehab; discussed with Melina case preparer and liner; likely discharge tomorrow. Full code. Visit type - Emergency Visit Emergency Visit: Yes ED Registration Date: 04/29/18 Care time: The patient presented to the Emergency Department on the above date and was hospitalized for further evaluation of their emergent condition. - New Patient This patient is new to me today: No - Critical Care Critical Care patient: No
[2018-05-04 09:19] LABS: BLOOD UREA NITROGEN 25 mg/dL (7-18); CHLORIDE 84 mmol/L (98-107); CREATININE 0.8 mg/dL (0.7-1.3); GLUCOSE,RANDOM 170 mg/dL (74-106); MAGNESIUM 2.4 mg/dL (1.8-2.4); POTASSIUM 4.3 mmol/L (3.5-5.1); SODIUM 135 mmol/L (136-145)
--- NOTE | 2018-05-04 10:22 | PN ---
Progress Note, Physician History of Present Illness: Dyspnea, cough and wheeze improving with bipap nightly. Currently on 3 L NC O2. ABG noted - Current Medication List Current Medications: Active Medications Acetaminophen (Tylenol -) 650 mg PO Q6H PRN PRN Reason: FEVER Last Admin: 05/03/18 10:18 Dose: 650 mg Albuterol/Ipratropium (Duoneb -) 1 amp NEB Q4H [facility] Last Admin: 05/04/18 08:41 Dose: 1 amp Amlodipine Besylate (Norvasc -) 5 mg PO DAILY [facility] Last Admin: 05/03/18 09:31 Dose: 5 mg Enoxaparin Sodium (Lovenox -) 40 mg SQ DAILY [facility] Last Admin: 05/03/18 09:30 Dose: 40 mg Furosemide (Lasix Injection -) 80 mg IVPUSH BID@0600,1400 [facility] Last Admin: 05/04/18 06:24 Dose: 80 mg Ceftriaxone Sodium 1 gm/ (Dextrose) 50 mls @ 100 mls/hr IVPB DAILY [facility]; Protocol Last Admin: 05/03/18 09:31 Dose: 100 mls/hr Azithromycin 500 mg/ Dextrose 250 mls @ 250 mls/hr IVPB DAILY [facility] Last Admin: 05/03/18 10:18 Dose: 250 mls/hr Methylprednisolone Sodium Succinate (Solu-Medrol -) 40 mg IVPUSH Q6H-IV [facility] Last Admin: 05/04/18 02:43 Dose: 40 mg Metoprolol Succinate (Toprol Xl -) 25 mg PO DAILY [facility] Last Admin: 05/03/18 09:32 Dose: 25 mg Nicotine (Nicoderm Patch -) 21 mg TD DAILY [facility] Last Admin: 05/03/18 09:30 Dose: 21 mg Pantoprazole Sodium (Protonix -) 40 mg PO DAILY [facility] Spironolactone (Aldactone -) 25 mg PO DAILY [facility] Last Admin: 05/03/18 09:31 Dose: 25 mg Tramadol HCl (Ultram -) 50 mg PO Q8H PRN PRN Reason: PAIN LEVEL 6-10 Last Admin: 05/04/18 00:04 Dose: 50 mg Valsartan (Diovan -) 160 mg PO BID [facility] Last Admin: 05/03/18 22:10 Dose: 160 mg - Objective Vital Signs: Vital Signs Temperature 97.4 F L 05/04/18 06:20 Pulse Rate 86 05/04/18 06:20 Respiratory Rate 21 05/04/18 06:20 Blood Pressure 160/99 05/04/18 06:20 O2 Sat by Pulse Oximetry (%) 94 L 05/04/18 00:13 Constitutional: Yes: No Distress, Calm Neck: Yes: Supple Cardiovascular: Yes: Regular Rate and Rhythm Respiratory: Yes: Regular, Diminished, On BiPap, On Nasal O2 Gastrointestinal: Yes: Normal Bowel Sounds, Soft, Abdomen, Obese Genitourinary: Yes: Valdivia Present Edema: No Labs: CBC, BMP 05/03/18 05:30 05/04/18 08:40 INR, PTT INR 1.13 (0.83-1.09) H 04/29/18 15:30 Problem List - Problems (1) Acute on chronic respiratory failure with hypoxia and hypercapnia Code(s): J96.21 - ACUTE AND CHRONIC RESPIRATORY FAILURE WITH HYPOXIA; J96.22 - ACUTE AND CHRONIC RESPIRATORY FAILURE WITH HYPERCAPNIA (2) COPD exacerbation Code(s): J44.1 - CHRONIC OBSTRUCTIVE PULMONARY DISEASE W (ACUTE) EXACERBATION (3) Cor pulmonale Code(s): I27.81 - COR PULMONALE (CHRONIC) (4) Obesity hypoventilation syndrome Code(s): E66.2 - MORBID (SEVERE) OBESITY WITH ALVEOLAR HYPOVENTILATION (5) Pulmonary HTN Code(s): I27.20 - PULMONARY HYPERTENSION, UNSPECIFIED (6) Morbid obesity Code(s): E66.01 - MORBID (SEVERE) OBESITY DUE TO EXCESS CALORIES (7) Sleep apnea Code(s): G47.30 - SLEEP APNEA, UNSPECIFIED Qualifiers: Sleep apnea type: obstructive Qualified Code(s): G47.33 - Obstructive sleep apnea (adult) (pediatric) (8) Diastolic dysfunction Code(s): I51.9 - HEART DISEASE, UNSPECIFIED Assessment/Plan Echocardiography 07/30/2017 revealed severe right sided dilation with moderate TR and severe pulmonary HTN Echocardiography 05/02/2018 Normal LV size and fxn, mild cLVH, mildly dilated RV with mod-severe decrease RV fxn, impaired relaxation 1. Acute on chronic hypoxemic/hypercapneic respiratory failure, related to 2. Acute exacerbation of chronic obstructive pulmonary disease, possible pneumonia in context of medication noncompliance and loss of insurance coverage 3. Morbid obesity/OSAS/obesity hypoventilation syndrome with 4. Severe pulmonary hypertension with cor pulmonale, clinical class II-III NYHA classification failure 5. Diastolic LV dysfunction with chronic class 0-I NYHA classification LV congestive heart failure 6. Tobacco abuse PLAN: 1. Decrease IV Lasix (increasing azotemia and hyponatremia) and continue Aldactone 25 qd 2. Continue Diovan 160 bid 3. Continue Norvasc 5 qd 4. Continue Toprol XL 25 qd with caution and close monitoring of respiratory status 5. Continue IV steroids with GI protection, bronchodilators, empiric abx, bipap nightly and FIO2 to maintain saO2>90% 6. DVT prophylaxis 7. Patient was strongly counselled smoking cessation, dietary restriction including caloric restrictions and weight reduction, emphasized importance of medication compliance and maintenance of insured status
[2018-05-04 10:54] LABS: ANION GAP 7 (8-16); CO2 44 mmol/L (21-32)
[2018-05-04] MEDS ORDERED: cefTRIAXone SODIUM 1 GM VIAL ONE (10:59)
[2018-05-04] MEDS ORDERED: PT OWN MED DRAWER 7, Y5N ONE (10:59)
[2018-05-04] MEDS ORDERED: DEXTROSE 5%-WATER - 50 ML IVPB ONE (11:00)
[2018-05-04] MEDS: NICOTINE 21 MG/24 HOURS TOPICAL PATCH TD SCH (11:35)
[2018-05-04] MEDS: ENOXAPARIN NA (PORCINE) 40 MG/0.4 ML DISP.SYRIN SQ SCH (11:35)
[2018-05-04] MEDS: SPIRONOLACTONE 25 MG TABLET (FP) PO SCH (11:35)
[2018-05-04] MEDS: VALSARTAN 160 MG TABLET (UD) PO SCH ×2 (11:35→21:16)
[2018-05-04] MEDS: amLODIPine BESYLATE 5 MG TABLET (FP) PO SCH (11:36)
[2018-05-04] MEDS: metoPROLOL SUCCINATE 25 MG TAB.SR.24H (FP) PO SCH (11:36)
[2018-05-04] MEDS: PANTOPRAZOLE 40 MG TABLET (FP) PO SCH (11:36)
[2018-05-04] MEDS: ACETAMINOPHEN 325 MG TABLET (FP) PO PRN (11:36)
[2018-05-04] MEDS: AZITHROMYCIN IVPB 500 MG in DEXTROSE 5%-WATER - 250 ML IVPB SCH (11:37)
[2018-05-04] MEDS: CEFTRIAXONE 1 GM in DEXTROSE 5%-WATER - 50 ML IVPB SCH (11:37)
--- NOTE | 2018-05-04 14:07 | PN ---
Progress Note (short form) - Note Progress Note: Breathing continues to improve. Currently on 4 L NC O2. NIPPV overnight. Cough and wheezing improving as well. Intake & Output 05/01/18 05/02/18 05/03/18 05/04/18 23:59 23:59 23:59 23:59 Intake Total 1602 480 515 660 Output Total 3300 7100 6250 900 Balance -1698 -6620 -5735 -240 Weight 405 lb 4 oz 403 lb 403 lb 6 oz Last Vital Signs Temp Pulse Resp BP Pulse Ox 97.4 F L 83 22 148/98 92 L 05/04/18 06:20 05/04/18 11:44 05/04/18 10:00 05/04/18 10:00 05/04/18 11:44 Active Medications Acetaminophen (Tylenol -) 650 mg PO Q6H PRN PRN Reason: FEVER Last Admin: 05/04/18 11:36 Dose: 650 mg Albuterol/Ipratropium (Duoneb -) 1 amp NEB Q4H [facility] Last Admin: 05/04/18 11:46 Dose: 1 amp Amlodipine Besylate (Norvasc -) 5 mg PO DAILY [facility] Last Admin: 05/04/18 11:36 Dose: 5 mg Enoxaparin Sodium (Lovenox -) 40 mg SQ DAILY [facility] Last Admin: 05/04/18 11:35 Dose: 40 mg Furosemide (Lasix Injection -) 40 mg IVPUSH BID@0600,1400 [facility] Ceftriaxone Sodium 1 gm/ (Dextrose) 50 mls @ 100 mls/hr IVPB DAILY [facility]; Protocol Last Admin: 05/04/18 11:37 Dose: 100 mls/hr Azithromycin 500 mg/ Dextrose 250 mls @ 250 mls/hr IVPB DAILY [facility] Last Admin: 05/04/18 11:37 Dose: 250 mls/hr Metoprolol Succinate (Toprol Xl -) 25 mg PO DAILY [facility] Last Admin: 05/04/18 11:36 Dose: 25 mg Nicotine (Nicoderm Patch -) 21 mg TD DAILY [facility] Last Admin: 05/04/18 11:35 Dose: 21 mg Pantoprazole Sodium (Protonix -) 40 mg PO DAILY [facility] Last Admin: 05/04/18 11:36 Dose: 40 mg Prednisone (Deltasone -) 40 mg PO ONCE ONE Stop: 05/04/18 18:01 Prednisone (Deltasone -) 40 mg PO 0600,1200,1800 [facility] Spironolactone (Aldactone -) 25 mg PO DAILY [facility] Last Admin: 05/04/18 11:35 Dose: 25 mg Tramadol HCl (Ultram -) 50 mg PO Q8H PRN PRN Reason: PAIN LEVEL 6-10 Last Admin: 05/04/18 11:36 Dose: 50 mg Valsartan (Diovan -) 160 mg PO BID [facility] Last Admin: 05/04/18 11:35 Dose: 160 mg Gen: Mildly tachypneic on NC O2, NAD Heart: RRR Lung: distant breath sounds, scattered rhonchi Abd: soft, nontender Ext: + edema Laboratory Results - last 24 hr 05/04/18 08:40 Sodium 135 L Potassium 4.3 Chloride 84 L Carbon Dioxide 44 H Anion Gap 7 L BUN 25 H Creatinine 0.8 Creat Clearance w eGFR > 60 Random Glucose 170 H D Calcium 9.0 Magnesium 2.4 Problem List - Problems (1) Acute on chronic respiratory failure with hypoxia and hypercapnia Code(s): J96.21 - ACUTE AND CHRONIC RESPIRATORY FAILURE WITH HYPOXIA; J96.22 - ACUTE AND CHRONIC RESPIRATORY FAILURE WITH HYPERCAPNIA (2) COPD exacerbation Code(s): J44.1 - CHRONIC OBSTRUCTIVE PULMONARY DISEASE W (ACUTE) EXACERBATION (3) Cor pulmonale Code(s): I27.81 - COR PULMONALE (CHRONIC) (4) Obesity hypoventilation syndrome Code(s): E66.2 - MORBID (SEVERE) OBESITY WITH ALVEOLAR HYPOVENTILATION (5) Pulmonary HTN Code(s): I27.20 - PULMONARY HYPERTENSION, UNSPECIFIED (6) Morbid obesity Code(s): E66.01 - MORBID (SEVERE) OBESITY DUE TO EXCESS CALORIES (7) Sleep apnea Code(s): G47.30 - SLEEP APNEA, UNSPECIFIED Qualifiers: Sleep apnea type: obstructive Qualified Code(s): G47.33 - Obstructive sleep apnea (adult) (pediatric) (8) Diastolic dysfunction Code(s): I51.9 - HEART DISEASE, UNSPECIFIED A/P Acute on Chronic Hypoxic and Hypercapneic Respiratory Failure Acute COPD Exacerbation r/o Pneumonia LV diastolic Dysfunction Pulmonary HTN Morbid Obesity RANJIT/OHS Smoker - Agree with Prednisone - inhaled bronchodilators standing and PRN - O2 @ 4 L NC to keep SpO2 88-92% to prevent worsening V/Q mismatch - NIPPV as needed to assist in work of breathing - Lasix - monitor urine output, creatinine - daily weights - smoking cessation - encourage weight loss - DVT prophylaxis - Patient would greatly benefit from STR with Pulmonary Rehab. Very high risk for readmission due to multiple co-morbidities - No Pulmonary contraindication for D/C planning Dr Donaldson
[2018-05-04] MEDS ORDERED: predniSONE 20 MG TABLET (UD) PO ONE (18:00)
[2018-05-04] MEDS: LIDOCAINE 5% TOPICAL PATCH TP SCH (21:17)
[2018-05-04] MEDS: LIDOCAINE PATCH REMOVAL MC SCH (21:42)
[2018-05-05] MEDS: ALBUTEROL SO4 2.5/IPRATROPIUM 0.5 INH SOL 3 ML VIAL.NEB. NEB SCH ×6 (00:05→20:30)
[2018-05-05] MEDS ORDERED: predniSONE 20 MG TABLET (UD) PO SCH (06:00)
[2018-05-05] MEDS: FUROSEMIDE 40 MG/4 ML INJECTABLE VIAL IVPUSH SCH (06:59)
[2018-05-05] MEDS: traMADol HCL 50 MG TABLET PO PRN (06:59)
[2018-05-05 07:28] LABS: BASO % 0.1 % (0-2.0); HEMATOCRIT 46.4 % (35.4-49); HEMOGLOBIN 14.5 GM/dL (11.7-16.9); LYMPH % 3.8 % (8-40); MCH 26.2 pg (25.7-33.7); MCHC 31.2 g/dl (32.0-35.9); MEAN CELL VOLUME 83.8 fl (80-96); MEAN PLT VOLUME 8.3 fl (7.5-11.1); MONO % 5.5 % (3.8-10.2); NEUT % 90.6 % (42.8-82.8); PLATELET COUNT 161 K/MM3 (134-434); RBC 5.54 M/mm3 (4.00-5.60); WHITE BLOOD COUNT 11.1 K/mm3 (4.0-10.0)
[2018-05-05 08:34] LABS: ALBUMIN 3.1 g/dl (3.4-5.0); BLOOD UREA NITROGEN 28 mg/dL (7-18); CHLORIDE 89 mmol/L (98-107); CREATININE 0.7 mg/dL (0.7-1.3); GLUCOSE,RANDOM 122 mg/dL (74-106); MAGNESIUM 2.4 mg/dL (1.8-2.4); POTASSIUM 4.3 mmol/L (3.5-5.1); SGOT/AST 22 U/L (15-37); SGPT/ALT 44 U/L (12-78); SODIUM 140 mmol/L (136-145)
[2018-05-05 08:36] LABS: ALK PHOS 69 U/L (45-117); BILIRUBIN,TOTAL 0.5 mg/dL (0.2-1.0); TOT PROT 6.5 g/dl (6.4-8.2)
[2018-05-05] MEDS ORDERED: DEXTROSE 5%-WATER - 50 ML IVPB ONE (09:35)
[2018-05-05] MEDS ORDERED: cefTRIAXone SODIUM 1 GM VIAL ONE (09:35)
[2018-05-05] MEDS ORDERED: PT OWN MED DRAWER 7, Y5N ONE (09:35)
[2018-05-05] MEDS: ENOXAPARIN NA (PORCINE) 40 MG/0.4 ML DISP.SYRIN SQ SCH (09:48)
[2018-05-05] MEDS: NICOTINE 21 MG/24 HOURS TOPICAL PATCH TD SCH (09:48)
[2018-05-05] MEDS: metoPROLOL SUCCINATE 25 MG TAB.SR.24H (FP) PO SCH (09:48)
[2018-05-05] MEDS: amLODIPine BESYLATE 5 MG TABLET (FP) PO SCH (09:48)
[2018-05-05] MEDS: LIDOCAINE 5% TOPICAL PATCH TP SCH ×2 (09:48→14:10)
[2018-05-05] MEDS: SPIRONOLACTONE 25 MG TABLET (FP) PO SCH (09:48)
[2018-05-05] MEDS: PANTOPRAZOLE 40 MG TABLET (FP) PO SCH (09:48)
[2018-05-05] MEDS: VALSARTAN 160 MG TABLET (UD) PO SCH ×2 (09:48→22:27)
[2018-05-05] MEDS: CEFTRIAXONE 1 GM in DEXTROSE 5%-WATER - 50 ML IVPB SCH (09:49)
--- NOTE | 2018-05-05 10:45 | PN ---
Progress Note, Physician History of Present Illness: Dyspnea, cough and wheeze improving with bipap nightly. Currently on 3 L NC O2. ABG noted - Current Medication List Current Medications: Active Medications Acetaminophen (Tylenol -) 650 mg PO Q6H PRN PRN Reason: FEVER Last Admin: 05/04/18 11:36 Dose: 650 mg Albuterol/Ipratropium (Duoneb -) 1 amp NEB Q4H [facility] Last Admin: 05/05/18 07:40 Dose: 1 amp Amlodipine Besylate (Norvasc -) 5 mg PO DAILY [facility] Last Admin: 05/05/18 09:48 Dose: 5 mg Enoxaparin Sodium (Lovenox -) 40 mg SQ DAILY [facility] Last Admin: 05/05/18 09:48 Dose: 40 mg Furosemide (Lasix Injection -) 40 mg IVPUSH BID@0600,1400 [facility] Last Admin: 05/05/18 06:59 Dose: 40 mg Ceftriaxone Sodium 1 gm/ (Dextrose) 50 mls @ 100 mls/hr IVPB DAILY [facility]; Protocol Last Admin: 05/05/18 09:49 Dose: 100 mls/hr Azithromycin 500 mg/ Dextrose 250 mls @ 250 mls/hr IVPB DAILY [facility] Last Admin: 05/04/18 11:37 Dose: 250 mls/hr Lidocaine (Lidoderm Patch -) 1 patch TP DAILY [facility] Last Admin: 05/05/18 09:48 Dose: 1 patch Metoprolol Succinate (Toprol Xl -) 25 mg PO DAILY [facility] Last Admin: 05/05/18 09:48 Dose: 25 mg Miscellaneous (Lidoderm Patch Removal) 1 each MC DAILY@2200 [facility] Last Admin: 05/04/18 21:42 Dose: Not Given Nicotine (Nicoderm Patch -) 21 mg TD DAILY [facility] Last Admin: 05/05/18 09:48 Dose: 21 mg Pantoprazole Sodium (Protonix -) 40 mg PO DAILY [facility] Last Admin: 05/05/18 09:48 Dose: 40 mg Prednisone (Deltasone -) 40 mg PO 0600,1200,1800 [facility] Last Admin: 05/05/18 06:59 Dose: 40 mg Spironolactone (Aldactone -) 25 mg PO DAILY [facility] Last Admin: 05/05/18 09:48 Dose: 25 mg Tramadol HCl (Ultram -) 50 mg PO Q8H PRN PRN Reason: PAIN LEVEL 6-10 Last Admin: 05/05/18 06:59 Dose: 50 mg Valsartan (Diovan -) 160 mg PO BID [facility] Last Admin: 05/05/18 09:48 Dose: 160 mg - Objective Vital Signs: Vital Signs Temperature 97.9 F 05/05/18 02:00 Pulse Rate 80 05/05/18 05:45 Respiratory Rate 20 05/05/18 05:45 Blood Pressure 158/94 05/05/18 05:45 O2 Sat by Pulse Oximetry (%) 90 L 05/04/18 21:00 Constitutional: Yes: No Distress, Calm Neck: Yes: Supple Cardiovascular: Yes: Regular Rate and Rhythm Respiratory: Yes: Regular, Diminished, On Nasal O2 Gastrointestinal: Yes: Normal Bowel Sounds, Soft, Abdomen, Obese Edema: No Labs: CBC, BMP 05/05/18 06:30 05/05/18 06:30 INR, PTT INR 1.13 (0.83-1.09) H 04/29/18 15:30 - ....Imaging EKG: Report Reviewed (Tele: NSR) Problem List - Problems (1) Acute on chronic respiratory failure with hypoxia and hypercapnia Code(s): J96.21 - ACUTE AND CHRONIC RESPIRATORY FAILURE WITH HYPOXIA; J96.22 - ACUTE AND CHRONIC RESPIRATORY FAILURE WITH HYPERCAPNIA (2) COPD exacerbation Code(s): J44.1 - CHRONIC OBSTRUCTIVE PULMONARY DISEASE W (ACUTE) EXACERBATION (3) Cor pulmonale Code(s): I27.81 - COR PULMONALE (CHRONIC) (4) Obesity hypoventilation syndrome Code(s): E66.2 - MORBID (SEVERE) OBESITY WITH ALVEOLAR HYPOVENTILATION (5) Pulmonary HTN Code(s): I27.20 - PULMONARY HYPERTENSION, UNSPECIFIED (6) Morbid obesity Code(s): E66.01 - MORBID (SEVERE) OBESITY DUE TO EXCESS CALORIES (7) Sleep apnea Code(s): G47.30 - SLEEP APNEA, UNSPECIFIED Qualifiers: Sleep apnea type: obstructive Qualified Code(s): G47.33 - Obstructive sleep apnea (adult) (pediatric) (8) Diastolic dysfunction Code(s): I51.9 - HEART DISEASE, UNSPECIFIED Assessment/Plan Echocardiography 07/30/2017 revealed severe right sided dilation with moderate TR and severe pulmonary HTN Echocardiography 05/02/2018 Normal LV size and fxn, mild cLVH, mildly dilated RV with mod-severe decrease RV fxn, impaired relaxation 1. Acute on chronic hypoxemic/hypercapneic respiratory failure, related to 2. Acute exacerbation of chronic obstructive pulmonary disease, possible pneumonia in context of medication noncompliance and loss of insurance coverage 3. Morbid obesity/OSAS/obesity hypoventilation syndrome with 4. Severe pulmonary hypertension with cor pulmonale, clinical class II-III NYHA classification failure 5. Diastolic LV dysfunction with chronic class 0-I NYHA classification LV congestive heart failure 6. Tobacco abuse PLAN: 1. Start oral Lasix 40 bid (increasing azotemia) and continue Aldactone 25 qd 2. Continue Diovan 160 bid 3. Continue Norvasc 5 qd 4. Continue Toprol XL 25 qd with caution and close monitoring of respiratory status 5. Continue oral steroid taper with GI protection, bronchodilators, empiric abx , bipap nightly and FIO2 to maintain saO2>90% 6. DVT prophylaxis 7. Patient was strongly counselled smoking cessation, dietary restriction including caloric restrictions and weight reduction, emphasized importance of medication compliance and maintenance of insured status 8. Patient would greatly benefit from STR with Pulmonary Rehab. Very high risk for readmission due to multiple co-morbidities
--- NOTE | 2018-05-05 11:42 | PN ---
Physical Exam: SUBJECTIVE: Patient seen and examined. Verbalizing feeling depressed. States his family is not there for him, feels alone and wants to speak for someone. Denies suicide ideation. States depression for multiple reasons: recent divorce, worsening illness, non involvement of his children in his life, obesity Breathing improving. OBJECTIVE: lexapro initiated for depression, will consult psyche Prednisone 40mg daily and taper off as tolerated, no need for high dose steriods Discharge planning, awaiting authorization Vital Signs Period Temp Pulse Resp BP Sys/Melgoza Pulse Ox Last 24 Hr 97.7 F-98.9 F 78-89 18-20 123-158/63-96 90-92 GENERAL: The patient is awake, alert, and fully oriented, in no acute distress. HEAD: Normal with no signs of trauma. EYES: PERRL, extraocular movements intact, sclera anicteric, conjunctiva clear. No ptosis. ENT: Ears normal, nares patent, oropharynx clear without exudates, moist mucous membranes. NECK: Trachea mdline, full range of motion, supple. LUNGS: diminished breath sounds bilaterally, no wheezing, tolerating 3 liters of nasal cannula. HEART: Regular rate and rhythm ABDOMEN: Soft, nontender, nondistended, normoactive bowel sounds, no guarding, no rebound, no hepatosplenomegaly, no masses. EXTREMITIES: 2+ pulses, warm, well-perfused, no edema. NEUROLOGICAL: Normal speech, gait not observed. PSYCH: Normal mood, normal affect. Laboratory Results - last 24 hr 05/05/18 05/05/18 06:30 06:30 WBC 11.1 H RBC 5.54 Hgb 14.5 Hct 46.4 MCV 83.8 MCH 26.2 MCHC 31.2 L RDW 19.0 H Plt Count 161 MPV 8.3 Absolute Neuts (auto) 10.0 Neutrophils % 90.6 H Lymphocytes % 3.8 L Monocytes % 5.5 D Eosinophils % 0.0 Basophils % 0.1 Nucleated RBC % 0 Sodium 140 Potassium 4.3 Chloride 89 L BUN 28 H Creatinine 0.7 Creat Clearance w eGFR > 60 Random Glucose 122 H D Calcium 9.0 Magnesium 2.4 Total Bilirubin 0.5 AST 22 D ALT 44 D Alkaline Phosphatase 69 Total Protein 6.5 Albumin 3.1 L Active Medications Generic Name Dose Route Start Last Admin Trade Name Freq PRN Reason Stop Dose Admin Acetaminophen 650 mg 05/03/18 01:25 05/04/18 11:36 Tylenol - PO 650 mg Q6H PRN Administration FEVER Albuterol/Ipratropium 1 amp 04/29/18 20:00 05/05/18 07:40 Duoneb - NEB 1 amp Q4H MINDI Administration Amlodipine Besylate 5 mg 04/29/18 23:09 05/05/18 09:48 Norvasc - PO 5 mg DAILY MINDI Administration Enoxaparin Sodium 40 mg 04/30/18 10:00 05/05/18 09:48 Lovenox - SQ 40 mg DAILY MINDI Administration Furosemide 40 mg 05/05/18 14:00 Lasix - PO BID@0600,1400 MINDI Ceftriaxone Sodium 1 gm/ 50 mls @ 100 mls/hr 04/30/18 10:00 05/05/18 09:49 Dextrose IVPB 100 mls/hr DAILY MINDI Administration Protocol Azithromycin 500 mg/ Dextrose 250 mls @ 250 mls/hr 04/30/18 10:00 05/04/18 11 :37 IVPB 250 mls/hr DAILY MINDI Administration Lidocaine 1 patch 05/04/18 22:00 05/05/18 09:48 Lidoderm Patch - TP 1 patch DAILY MINDI Administration Metoprolol Succinate 25 mg 05/02/18 10:00 05/05/18 09:48 Toprol Xl - PO 25 mg DAILY MINDI Administration Miscellaneous 1 each 05/04/18 22:00 05/04/18 21:42 Lidoderm Patch Removal MC Not Given DAILY@2200 MINDI Nicotine 21 mg 04/30/18 23:00 05/05/18 09:48 Nicoderm Patch - TD 21 mg DAILY MINDI Administration Pantoprazole Sodium 40 mg 05/04/18 10:00 05/05/18 09:48 Protonix - PO 40 mg DAILY MINDI Administration Spironolactone 25 mg 05/01/18 11:45 05/05/18 09:48 Aldactone - PO 25 mg DAILY MINDI Administration Tramadol HCl 50 mg 05/03/18 11:02 05/05/18 06:59 Ultram - PO 50 mg Q8H PRN Administration PAIN LEVEL 6-10 Valsartan 160 mg 04/29/18 23:15 05/05/18 09:48 Diovan - PO 160 mg BID MINDI Administration ASSESSMENT/PLAN: Patient is a 53 year old male with a significant past medical history of asthma , COPD, sleep apnea, morbid obesity, obesity hypoventilation syndrome, pulmonary hypertension, cor pulmonale, diastolic heart failure, and recurrent hypoxic and hypercapnic respiratory failure requiring intubation. Patient reports non compliance with home meds secondary to the inablity to get prescription refilled. He presented to the ED on 04/29/2018 for acute respiratory failure with recurrently hypoxia. In ER patient was placed on bipap with initial ABG showing an acute respiratory acidosis with hypercapnea and chest xray showed pulmonary vasculature prominence. Pulmonary Asthma/COPD/Acute respiratory failure with hypoxia: inhaled bronchodilators standing. Decrease Prednisone to 40mg daily and taper off slowly q 5 days as tolerated. Continue 4 liters of nasal cannula to maintain oxygen sats between 88 -92%. on bipap. Sleep apnea: On bipap Obesity hypoventilation syndrome: encouraged weight loss, pt reports recent increase of weight loss 2/2 depression and immobility Psyche consulted. PT eval. Patient pending bed at pulmonary rehab. Pulmonary hypertension: monitor oxygen levels on 4 liters of NC, on Lasix PO BID Cardiology Diastolic heart failure/Hypertension: On Diovan BID, Norvasc 5 daily, Toprol 25mg daily. Monitor input and outputa and daily weights Psyche Depression: Depressed for some time, states depression getting worse. Denies suicide ideation. Started on lexapro, psyche consulted. fen PO intake adequate monitor electrolytes monitor prophy: Lovenox Protonix while on steriods full code Visit type - Emergency Visit Emergency Visit: Yes ED Registration Date: 04/29/18 Care time: The patient presented to the Emergency Department on the above date and was hospitalized for further evaluation of their emergent condition. - New Patient This patient is new to me today: Yes Date on this admission: 05/05/18 - Critical Care Critical Care patient: No - Discharge Referral Referred to [facility] Med [facility].C.: No
[2018-05-05] MEDS: AZITHROMYCIN IVPB 500 MG in DEXTROSE 5%-WATER - 250 ML IVPB SCH (12:01)
--- NOTE | 2018-05-05 12:14 | PN ---
Progress Note (short form) - Note Progress Note: Breathing continues to improve. Remains on 4 L NC O2. NIPPV overnight. Cough and wheezing improving as well. Feels very depressed and weeping about his overall medical condition. Has been feeling these symptoms for quite some time now. 2 Intake & Output 05/01/18 05/02/18 05/03/18 05/04/18 23:59 23:59 23:59 23:59 Intake Total 1602 480 515 660 Output Total 3300 7100 6250 900 Balance -1698 -6620 -5735 -240 Weight 405 lb 4 oz 403 lb 403 lb 6 oz Last Vital Signs Temp Pulse Resp BP Pulse Ox 97.4 F L 83 22 148/98 92 L 05/04/18 06:20 05/04/18 11:44 05/04/18 10:00 05/04/18 10:00 05/04/18 11:44 Active Medications Acetaminophen (Tylenol -) 650 mg PO Q6H PRN PRN Reason: FEVER Last Admin: 05/04/18 11:36 Dose: 650 mg Albuterol/Ipratropium (Duoneb -) 1 amp NEB Q4H [facility] Last Admin: 05/04/18 11:46 Dose: 1 amp Amlodipine Besylate (Norvasc -) 5 mg PO DAILY [facility] Last Admin: 05/04/18 11:36 Dose: 5 mg Enoxaparin Sodium (Lovenox -) 40 mg SQ DAILY [facility] Last Admin: 05/04/18 11:35 Dose: 40 mg Furosemide (Lasix Injection -) 40 mg IVPUSH BID@0600,1400 [facility] Ceftriaxone Sodium 1 gm/ (Dextrose) 50 mls @ 100 mls/hr IVPB DAILY [facility]; Protocol Last Admin: 05/04/18 11:37 Dose: 100 mls/hr Azithromycin 500 mg/ Dextrose 250 mls @ 250 mls/hr IVPB DAILY [facility] Last Admin: 05/04/18 11:37 Dose: 250 mls/hr Metoprolol Succinate (Toprol Xl -) 25 mg PO DAILY [facility] Last Admin: 05/04/18 11:36 Dose: 25 mg Nicotine (Nicoderm Patch -) 21 mg TD DAILY [facility] Last Admin: 05/04/18 11:35 Dose: 21 mg Pantoprazole Sodium (Protonix -) 40 mg PO DAILY [facility] Last Admin: 05/04/18 11:36 Dose: 40 mg Prednisone (Deltasone -) 40 mg PO ONCE ONE Stop: 05/04/18 18:01 Prednisone (Deltasone -) 40 mg PO 0600,1200,1800 [facility] Spironolactone (Aldactone -) 25 mg PO DAILY [facility] Last Admin: 05/04/18 11:35 Dose: 25 mg Tramadol HCl (Ultram -) 50 mg PO Q8H PRN PRN Reason: PAIN LEVEL 6-10 Last Admin: 05/04/18 11:36 Dose: 50 mg Valsartan (Diovan -) 160 mg PO BID [facility] Last Admin: 05/04/18 11:35 Dose: 160 mg Gen: Depressed, Mildly tachypneic on NC O2, NAD Heart: RRR Lung: distant breath sounds, scattered rhonchi Abd: soft, nontender Ext: + edema Laboratory Results - last 24 hr 05/05/18 05/05/18 06:30 06:30 WBC 11.1 H RBC 5.54 Hgb 14.5 Hct 46.4 MCV 83.8 MCH 26.2 MCHC 31.2 L RDW 19.0 H Plt Count 161 MPV 8.3 Absolute Neuts (auto) 10.0 Neutrophils % 90.6 H Lymphocytes % 3.8 L Monocytes % 5.5 D Eosinophils % 0.0 Basophils % 0.1 Nucleated RBC % 0 Sodium 140 Potassium 4.3 Chloride 89 L BUN 28 H Creatinine 0.7 Creat Clearance w eGFR > 60 Random Glucose 122 H D Calcium 9.0 Magnesium 2.4 Total Bilirubin 0.5 AST 22 D ALT 44 D Alkaline Phosphatase 69 Total Protein 6.5 Albumin 3.1 L Problem List - Problems (1) Acute on chronic respiratory failure with hypoxia and hypercapnia Code(s): J96.21 - ACUTE AND CHRONIC RESPIRATORY FAILURE WITH HYPOXIA; J96.22 - ACUTE AND CHRONIC RESPIRATORY FAILURE WITH HYPERCAPNIA (2) COPD exacerbation Code(s): J44.1 - CHRONIC OBSTRUCTIVE PULMONARY DISEASE W (ACUTE) EXACERBATION (3) Cor pulmonale Code(s): I27.81 - COR PULMONALE (CHRONIC) (4) Obesity hypoventilation syndrome Code(s): E66.2 - MORBID (SEVERE) OBESITY WITH ALVEOLAR HYPOVENTILATION (5) Pulmonary HTN Code(s): I27.20 - PULMONARY HYPERTENSION, UNSPECIFIED (6) Morbid obesity Code(s): E66.01 - MORBID (SEVERE) OBESITY DUE TO EXCESS CALORIES (7) Sleep apnea Code(s): G47.30 - SLEEP APNEA, UNSPECIFIED Qualifiers: Sleep apnea type: obstructive Qualified Code(s): G47.33 - Obstructive sleep apnea (adult) (pediatric) (8) Diastolic dysfunction Code(s): I51.9 - HEART DISEASE, UNSPECIFIED A/P Acute on Chronic Hypoxic and Hypercapneic Respiratory Failure Acute COPD Exacerbation r/o Pneumonia LV diastolic Dysfunction Pulmonary HTN Morbid Obesity RANJIT/OHS Smoker - Prednisone 40mg OD x 5 days then taper by 10mg every 3 days to off - Start Lexapro daily - inhaled bronchodilators standing and PRN - O2 @ 4 L NC to keep SpO2 88-92% to prevent worsening V/Q mismatch - NIPPV as needed to assist in work of breathing - Lasix - monitor urine output, creatinine - daily weights - smoking cessation - encourage weight loss - DVT prophylaxis - Patient would greatly benefit from STR with Pulmonary Rehab. Very high risk for readmission due to multiple co-morbidities - No Pulmonary contraindication for D/C planning Dr Donaldson
[2018-05-05] MEDS: ESCITALOPRAM OXALATE 10 MG TABLET (FP) PO SCH (12:27)
[2018-05-05 12:57] LABS: ANION GAP 3 (8-16); CO2 48 mmol/L (21-32)
[2018-05-05] MEDS: FUROSEMIDE 40 MG TABLET (FP) PO SCH (14:11)
[2018-05-05] MEDS: ACETAMINOPHEN 325 MG TABLET (FP) PO PRN (14:31)
[2018-05-05] MEDS ORDERED: LIDOCAINE PATCH REMOVAL MC SCH (22:00)
[2018-05-05] MEDS: LIDOCAINE PATCH REMOVAL MC SCH (22:27)
[2018-05-06] MEDS: ALBUTEROL SO4 2.5/IPRATROPIUM 0.5 INH SOL 3 ML VIAL.NEB. NEB SCH ×5 (00:05→15:58)
[2018-05-06 00:39] VITALS: BMI 57.8
[2018-05-06] MEDS: FUROSEMIDE 40 MG TABLET (FP) PO SCH ×2 (07:04→15:01)
[2018-05-06] MEDS: traMADol HCL 50 MG TABLET PO PRN ×2 (07:04→10:15)
--- NOTE | 2018-05-06 08:51 | PN ---
Progress Note, Physician History of Present Illness: Dyspnea, cough and wheeze improving with bipap nightly. Currently on 4 L NC O2. ABG noted - Current Medication List Current Medications: Active Medications Acetaminophen (Tylenol -) 650 mg PO Q6H PRN PRN Reason: FEVER Last Admin: 05/05/18 14:31 Dose: 650 mg Albuterol/Ipratropium (Duoneb -) 1 amp NEB Q4H [facility] Last Admin: 05/06/18 07:50 Dose: 1 amp Amlodipine Besylate (Norvasc -) 5 mg PO DAILY [facility] Last Admin: 05/05/18 09:48 Dose: 5 mg Enoxaparin Sodium (Lovenox -) 40 mg SQ DAILY [facility] Last Admin: 05/05/18 09:48 Dose: 40 mg Escitalopram Oxalate (Lexapro -) 10 mg PO DAILY [facility] Last Admin: 05/05/18 12:27 Dose: 10 mg Furosemide (Lasix -) 40 mg PO BID@0600,1400 [facility] Last Admin: 05/06/18 07:04 Dose: 40 mg Ceftriaxone Sodium 1 gm/ (Dextrose) 50 mls @ 100 mls/hr IVPB DAILY [facility]; Protocol Last Admin: 05/05/18 09:49 Dose: 100 mls/hr Lidocaine (Lidoderm Patch -) 1 patch TP DAILY [facility] Last Admin: 05/05/18 09:48 Dose: 1 patch Lidocaine (Lidoderm Patch -) 1 patch TP DAILY [facility] Last Admin: 05/05/18 14:10 Dose: 1 patch Metoprolol Succinate (Toprol Xl -) 25 mg PO DAILY [facility] Last Admin: 05/05/18 09:48 Dose: 25 mg Miscellaneous (Lidoderm Patch Removal) 1 each MC DAILY@2200 [facility] Last Admin: 05/05/18 22:27 Dose: 1 each Miscellaneous (Lidoderm Patch Removal) 1 each MC DAILY@2200 [facility] Last Admin: 05/05/18 22:27 Dose: 1 each Nicotine (Nicoderm Patch -) 21 mg TD DAILY [facility] Last Admin: 05/05/18 09:48 Dose: 21 mg Pantoprazole Sodium (Protonix -) 40 mg PO DAILY [facility] Last Admin: 05/05/18 09:48 Dose: 40 mg Prednisone (Deltasone -) 40 mg PO DAILY [facility] Spironolactone (Aldactone -) 25 mg PO DAILY [facility] Last Admin: 05/05/18 09:48 Dose: 25 mg Tramadol HCl (Ultram -) 50 mg PO Q8H PRN PRN Reason: PAIN LEVEL 6-10 Last Admin: 05/06/18 07:04 Dose: 50 mg Valsartan (Diovan -) 160 mg PO BID [facility] Last Admin: 05/05/18 22:27 Dose: 160 mg - Objective Vital Signs: Vital Signs Temperature 97.9 F 05/06/18 02:00 Pulse Rate 79 05/06/18 06:00 Respiratory Rate 20 05/06/18 06:00 Blood Pressure 130/71 05/06/18 06:00 O2 Sat by Pulse Oximetry (%) 91 L 05/06/18 07:49 Constitutional: Yes: No Distress, Calm Neck: Yes: Supple Cardiovascular: Yes: Regular Rate and Rhythm Respiratory: Yes: Regular, Diminished, On Nasal O2 Gastrointestinal: Yes: Normal Bowel Sounds, Soft, Abdomen, Obese Edema: No Labs: CBC, BMP 05/05/18 06:30 05/05/18 06:30 INR, PTT INR 1.13 (0.83-1.09) H 04/29/18 15:30 Problem List - Problems (1) Acute on chronic respiratory failure with hypoxia and hypercapnia Code(s): J96.21 - ACUTE AND CHRONIC RESPIRATORY FAILURE WITH HYPOXIA; J96.22 - ACUTE AND CHRONIC RESPIRATORY FAILURE WITH HYPERCAPNIA (2) COPD exacerbation Code(s): J44.1 - CHRONIC OBSTRUCTIVE PULMONARY DISEASE W (ACUTE) EXACERBATION (3) Cor pulmonale Code(s): I27.81 - COR PULMONALE (CHRONIC) (4) Obesity hypoventilation syndrome Code(s): E66.2 - MORBID (SEVERE) OBESITY WITH ALVEOLAR HYPOVENTILATION (5) Pulmonary HTN Code(s): I27.20 - PULMONARY HYPERTENSION, UNSPECIFIED (6) Morbid obesity Code(s): E66.01 - MORBID (SEVERE) OBESITY DUE TO EXCESS CALORIES (7) Sleep apnea Code(s): G47.30 - SLEEP APNEA, UNSPECIFIED Qualifiers: Sleep apnea type: obstructive Qualified Code(s): G47.33 - Obstructive sleep apnea (adult) (pediatric) (8) Diastolic dysfunction Code(s): I51.9 - HEART DISEASE, UNSPECIFIED Assessment/Plan Echocardiography 07/30/2017 revealed severe right sided dilation with moderate TR and severe pulmonary HTN Echocardiography 05/02/2018 Normal LV size and fxn, mild cLVH, mildly dilated RV with mod-severe decrease RV fxn, impaired relaxation 1. Acute on chronic hypoxemic/hypercapneic respiratory failure, related to 2. Acute exacerbation of chronic obstructive pulmonary disease, possible pneumonia in context of medication noncompliance and loss of insurance coverage 3. Morbid obesity/OSAS/obesity hypoventilation syndrome with 4. Severe pulmonary hypertension with cor pulmonale, clinical class II-III NYHA classification failure 5. Diastolic LV dysfunction with chronic class 0-I NYHA classification LV congestive heart failure 6. Tobacco abuse PLAN: 1. Continue oral Lasix 40 bid and continue Aldactone 25 qd 2. Continue Diovan 160 bid 3. Continue Norvasc 5 qd 4. Continue Toprol XL 25 qd with caution and close monitoring of respiratory status 5. Continue oral steroid taper with GI protection, bronchodilators, empiric abx , bipap nightly and FIO2 to maintain saO2>90% 6. DVT prophylaxis 7. Patient was strongly counselled smoking cessation, dietary restriction including caloric restrictions and weight reduction, emphasized importance of medication compliance and maintenance of insured status 8. Patient would greatly benefit from STR with Pulmonary Rehab. Very high risk for readmission due to multiple co-morbidities
--- NOTE | 2018-05-06 09:28 | DS ---
Physical Exam: SUBJECTIVE: Patient seen and examined at the bedside. OBJECTIVE: Vital Signs Period Temp Pulse Resp BP Sys/Melgoza Pulse Ox Last 24 Hr 97.9 F-98.3 F 72-86 18-20 115-140/60-96 91 PHYSICAL EXAM GENERAL: The patient is awake, alert, and fully oriented, in no acute distress. HEAD: Normal with no signs of trauma. EYES: PERRL, extraocular movements intact, sclera anicteric, conjunctiva clear. No ptosis. ENT: Ears normal, nares patent, oropharynx clear without exudates, moist mucous membranes. NECK: Trachea mdline, full range of motion, supple. LUNGS: diminished breath sounds bilaterally, no wheezing, tolerating 3 liters of nasal cannula. HEART: Regular rate and rhythm ABDOMEN: Soft, nontender, nondistended, normoactive bowel sounds, no guarding, no rebound, no hepatosplenomegaly, no masses. EXTREMITIES: 2+ pulses, warm, well-perfused, no edema. NEUROLOGICAL: Normal speech, gait not observed. PSYCH: Normal mood, normal affect. LABS Laboratory Results - last 24 hr 05/05/18 06:30 Carbon Dioxide 48 H Anion Gap 3 L HOSPITAL COURSE: Date of Admission:04/29/18 Date of Discharge: 05/06/18 Patient is a 53 year old male with a significant past medical history of asthma , COPD, sleep apnea, morbid obesity, obesity hypoventilation syndrome, pulmonary hypertension, cor pulmonale, diastolic heart failure, and recurrent hypoxic and hypercapnic respiratory failure requiring intubation. Patient reports non compliance with home meds secondary to the inability to get prescription refilled. He presented to the ED on 04/29/2018 for acute respiratory failure with recurrently hypoxia. In ER patient was placed on bipap with initial ABG showing an acute respiratory acidosis with hypercapnea and chest xray showed pulmonary vasculature prominence. Pulmonary Asthma/COPD/Acute respiratory failure with hypoxia, improved inhaled bronchodilators standing. Decrease Prednisone to 40mg daily and taper off slowly q 5 days as tolerated. Continue 4 liters of nasal cannula to maintain oxygen sats between 88-92%. on bipap. Sleep apnea, chronic: On bipap Obesity hypoventilation syndrome, chronic encouraged weight loss, pt reports recent increase of weight loss 2/2 depression and immobility Psyche consulted. PT eval. Patient pending bed at pulmonary rehab. Pulmonary hypertension, chronic monitor oxygen levels on 4 liters of NC, on Lasix PO BID Cardiology Diastolic heart failure/Hypertension. chronic On Diovan BID, Norvasc 5 daily, Toprol 25mg daily. Monitor input and output and daily weights Psyche Depression, chronic Depressed for some time, states depression getting worse. Denies suicide ideation. Started on lexapro. Seen by gurinder during hospitalization. full code Minutes to complete discharge: 60 Discharge Summary Reason For Visit: ACUTE RESPIRATORY FAILURE W HYPOXIA Current Active Problems Acute respiratory failure with hypoxia and hypercarbia (Acute) Condition: Improved - Instructions Diet, Activity, Other Instructions: Mr Abraham Adams were admitted to [facility] on 04/29/2018 for respiratory failure. You were placed on a bipap breathing machine and now you are on 4 liters of nasal cannula. We will be discharging you to pulmonary rehabilitation today. *Asthma/COPD/Acute respiratory failure with hypoxia: Continue the inhaled bronchodilators standing. Continue Prednisone 40mg daily and taper off slowly every 3 days as tolerated (prednisone 40mg daily x 5 days then taper by 10mg every 3 days to off). Continue Protonix while on the steriods of GI protection (this is day 2 of prednisone 40mg ) Continue 4 liters of nasal cannula to maintain oxygen sats between 88-92%. Please continue the bipap at night for your sleep apnea to maintain your oxygen levels between 88-92%. Please continue the Lasix 40mg twice per day and have your weights recorded daily. *Obesity hypoventilation syndrome: We encouraged weight loss, which will consist of a low salt, low carb high protein diet along with exercise. Once your symptoms improve, we recommend that you follow up with a editor at large. Being overweight can cause your symptoms to worsen and your breathing to be compromised. *Diastolic heart failure/Hypertension: Continue on Diovan BID, Norvasc 5 daily, Toprol 25mg daily. Monitor your blood pressure and follow up with your lime mixer tender outpatient. I have referred you to a lime mixer tender that saw you here. Please follow up within 1 week after discharge. *Depression: We started you on Lexapro (on 05/05/2018) for your depression. *Mobility: We encourage you to participate in physical therapy as tolerated. Lovenox 40mg daily should continue daily until you are able to move around better and are no longer bed bound. Please call me with any questions that you may have. [place] [employer] [phone] Aissatou Napier @ [facility] Disposition: HALF-WAY FACILITY - Home Medications Comprehensive Discharge Medication List: Ambulatory Orders Albuterol 2.5/Ipratropium 0.5 [Duoneb -] 1 amp NEB Q4H amp 05/06/18 Amlodipine Besylate [Norvasc -] 5 mg PO DAILY tablet 05/06/18 Enoxaparin [Lovenox -] 40 mg SQ DAILY disp.syrin 05/06/18 Escitalopram Oxalate [Lexapro -] 10 mg PO DAILY tablet 05/06/18 Furosemide [Lasix -] 40 mg PO BID@0600,1400 tablet 05/06/18 Lidocaine 5% Patch [Lidoderm -] 1 patch TP DAILY patch 05/06/18 Lidocaine 5% Patch [Lidoderm -] 1 patch TP DAILY patch 05/06/18 Metoprolol Succinate [Toprol XL -] 25 mg PO DAILY tab.sr.24h 05/06/18 Nicotine Patch [Nicoderm Patch -] 21 mg TD DAILY patch 05/06/18 Pantoprazole Sodium [Protonix -] 40 mg PO DAILY tablet.ec 05/06/18 Spironolactone [Aldactone -] 25 mg PO DAILY tablet 05/06/18 Valsartan [Diovan] 160 mg PO BID tablet 05/06/18 predniSONE [Deltasone -] 40 mg PO DAILY tablet 05/06/18 traMADol HCL [Ultram -] 50 mg PO Q8H PRN #30 tablet MDD 3 05/06/18 This patient is new to me today: Yes Date on this admission: 05/06/18 Emergency Visit: Yes ED Registration Date: 04/29/18 Care time: The patient presented to the Emergency Department on the above date and was hospitalized for further evaluation of their emergent condition. Critical Care patient: No - Discharge Referral Referred to [facility] No
[2018-05-06] MEDS ORDERED: predniSONE 20 MG TABLET (UD) PO SCH (10:00)
[2018-05-06] MEDS: ACETAMINOPHEN 325 MG TABLET (FP) PO PRN (10:16)
[2018-05-06] MEDS: ESCITALOPRAM OXALATE 10 MG TABLET (FP) PO SCH (10:59)
[2018-05-06] MEDS: metoPROLOL SUCCINATE 25 MG TAB.SR.24H (FP) PO SCH (10:59)
[2018-05-06] MEDS: amLODIPine BESYLATE 5 MG TABLET (FP) PO SCH (10:59)
[2018-05-06] MEDS: SPIRONOLACTONE 25 MG TABLET (FP) PO SCH (10:59)
[2018-05-06] MEDS: ENOXAPARIN NA (PORCINE) 40 MG/0.4 ML DISP.SYRIN SQ SCH (10:59)
[2018-05-06] MEDS: LIDOCAINE 5% TOPICAL PATCH TP SCH ×2 (11:00→11:01)
[2018-05-06] MEDS: NICOTINE 21 MG/24 HOURS TOPICAL PATCH TD SCH (11:00)
[2018-05-06] MEDS: PANTOPRAZOLE 40 MG TABLET (FP) PO SCH (11:00)
[2018-05-06] MEDS: VALSARTAN 160 MG TABLET (UD) PO SCH (11:00)
[2018-05-06] MEDS: CEFTRIAXONE 1 GM in DEXTROSE 5%-WATER - 50 ML IVPB SCH (11:00)
--- NOTE | 2018-05-06 14:10 | CON.PSY ---
Psychiatry Consult Chief Complaint: 53 year old male with multiple chronic medical conditions seen for psych consult for anxietry and depression. Patient was placed on Lexapro. He is being discharged to go to [facility]. Symptoms: reports: Depressed Mood, Anxiety - Previous Psychiatric Treatment Outpatient: None Inpatient: None - Previous Substance Abuse Treatment Outpatient: None Inpatient: None - Current Medications Current Medications: Active Medications Acetaminophen (Tylenol -) 650 mg PO Q6H PRN PRN Reason: FEVER Last Admin: 05/06/18 10:16 Dose: 650 mg Albuterol/Ipratropium (Duoneb -) 1 amp NEB Q4H [facility] Last Admin: 05/06/18 11:06 Dose: 1 amp Amlodipine Besylate (Norvasc -) 5 mg PO DAILY [facility] Last Admin: 05/06/18 10:59 Dose: 5 mg Enoxaparin Sodium (Lovenox -) 40 mg SQ DAILY [facility] Last Admin: 05/06/18 10:59 Dose: 40 mg Escitalopram Oxalate (Lexapro -) 10 mg PO DAILY [facility] Last Admin: 05/06/18 10:59 Dose: 10 mg Furosemide (Lasix -) 40 mg PO BID@0600,1400 [facility] Last Admin: 05/06/18 07:04 Dose: 40 mg Ceftriaxone Sodium 1 gm/ (Dextrose) 50 mls @ 100 mls/hr IVPB DAILY [facility]; Protocol Last Admin: 05/06/18 11:00 Dose: 100 mls/hr Lidocaine (Lidoderm Patch -) 1 patch TP DAILY [facility] Last Admin: 05/06/18 11:00 Dose: 1 patch Lidocaine (Lidoderm Patch -) 1 patch TP DAILY [facility] Last Admin: 05/06/18 11:01 Dose: Not Given Metoprolol Succinate (Toprol Xl -) 25 mg PO DAILY [facility] Last Admin: 05/06/18 10:59 Dose: 25 mg Miscellaneous (Lidoderm Patch Removal) 1 each MC DAILY@2200 [facility] Last Admin: 05/05/18 22:27 Dose: 1 each Miscellaneous (Lidoderm Patch Removal) 1 each MC DAILY@2200 [facility] Last Admin: 05/05/18 22:27 Dose: 1 each Nicotine (Nicoderm Patch -) 21 mg TD DAILY [facility] Last Admin: 05/06/18 11:00 Dose: 21 mg Pantoprazole Sodium (Protonix -) 40 mg PO DAILY [facility] Last Admin: 08/10/18 11:00 Dose: 40 mg Prednisone (Deltasone -) 40 mg PO DAILY [facility] Last Admin: 05/06/18 11:00 Dose: 40 mg Spironolactone (Aldactone -) 25 mg PO DAILY [facility] Last Admin: 05/06/18 10:59 Dose: 25 mg Tramadol HCl (Ultram -) 50 mg PO Q8H PRN PRN Reason: PAIN LEVEL 6-10 Last Admin: 05/06/18 10:15 Dose: 50 mg Valsartan (Diovan -) 160 mg PO BID [facility] Last Admin: 05/06/18 11:00 Dose: 160 mg - Allergies Allergies: Allergies Allergy/AdvReac Type Severity Reaction Status Date / Time pistachio nut Allergy Verified 08/01/17 03:13 - Current Living Status Usual Living Arrangement: Alone - Current Mental Status Evaluation Appearance: Disheveled Attitude: Cooperative - Affect Affect: Constrictive Appropriateness: Appropriate to Content - Mood Mood: Anxious - Speech/Language Expressive: Coherent - Psychomotor Activity Psychomotor Activity: Slowed - Thought Process Thought Process: Intact - Thought Content Hallucinations: Absent Delusions: Absent - Self Perception Self Perception: No Impairment - Cognition Attention: Alert Orientation: Time Memory, Immediate Recall: Intact Memory, Short Term: 3/3 Memory, Remote with Promptin/3 - Concentration Serial Sevens Intact: Yes Simple Calculations Intact: Yes - Abstraction Proverb Interpretation: Intact Judgement: Intact - Insight Insight: Intact - Impulse Control Impulse Control: Good Control - Suicidal Ideation Suicidal Ideation: No - Homicidal Ideation Homicidal Ideation: No Assessment/Plan 1) Continue with Lexapro 10mg po od.
--- NOTE | 2018-05-06 14:51 | PN ---
Progress Note (short form) - Note Progress Note: Breathing continues to improve. Remains on 4 L NC O2. NIPPV overnight. Cough and wheezing improving as well. Intake & Output 05/03/18 05/04/18 05/05/18 05/06/18 23:59 23:59 23:59 23:59 Intake Total 515 1570 300 240 Output Total 6250 900 350 Balance -5735 670 -50 240 Weight 403 lb 403 lb 6 oz 403 lb 393 lb Last Vital Signs Temp Pulse Resp BP Pulse Ox 97.9 F 82 18 165/95 93 L 05/06/18 02:00 05/06/18 10:00 05/06/18 10:00 05/06/18 10:00 05/06/18 09:00 Active Medications Acetaminophen (Tylenol -) 650 mg PO Q6H PRN PRN Reason: FEVER Last Admin: 05/06/18 10:16 Dose: 650 mg Albuterol/Ipratropium (Duoneb -) 1 amp NEB Q4H [facility] Last Admin: 05/06/18 11:06 Dose: 1 amp Amlodipine Besylate (Norvasc -) 5 mg PO DAILY [facility] Last Admin: 05/06/18 10:59 Dose: 5 mg Enoxaparin Sodium (Lovenox -) 40 mg SQ DAILY [facility] Last Admin: 05/06/18 10:59 Dose: 40 mg Escitalopram Oxalate (Lexapro -) 10 mg PO DAILY [facility] Last Admin: 05/06/18 10:59 Dose: 10 mg Furosemide (Lasix -) 40 mg PO BID@0600,1400 [facility] Last Admin: 05/06/18 07:04 Dose: 40 mg Ceftriaxone Sodium 1 gm/ (Dextrose) 50 mls @ 100 mls/hr IVPB DAILY [facility]; Protocol Last Admin: 05/06/18 11:00 Dose: 100 mls/hr Lidocaine (Lidoderm Patch -) 1 patch TP DAILY [facility] Last Admin: 05/06/18 11:00 Dose: 1 patch Lidocaine (Lidoderm Patch -) 1 patch TP DAILY [facility] Last Admin: 05/06/18 11:01 Dose: Not Given Metoprolol Succinate (Toprol Xl -) 25 mg PO DAILY [facility] Last Admin: 05/06/18 10:59 Dose: 25 mg Miscellaneous (Lidoderm Patch Removal) 1 each MC DAILY@2200 [facility] Last Admin: 05/05/18 22:27 Dose: 1 each Miscellaneous (Lidoderm Patch Removal) 1 each MC DAILY@2200 [facility] Last Admin: 05/05/18 22:27 Dose: 1 each Nicotine (Nicoderm Patch -) 21 mg TD DAILY [facility] Last Admin: 05/06/18 11:00 Dose: 21 mg Pantoprazole Sodium (Protonix -) 40 mg PO DAILY [facility] Last Admin: 05/06/18 11:00 Dose: 40 mg Prednisone (Deltasone -) 40 mg PO DAILY [facility] Last Admin: 05/06/18 11:00 Dose: 40 mg Spironolactone (Aldactone -) 25 mg PO DAILY [facility] Last Admin: 05/06/18 10:59 Dose: 25 mg Tramadol HCl (Ultram -) 50 mg PO Q8H PRN PRN Reason: PAIN LEVEL 6-10 Last Admin: 05/06/18 10:15 Dose: 50 mg Valsartan (Diovan -) 160 mg PO BID [facility] Last Admin: 05/06/18 11:00 Dose: 160 mg Gen: NAD Heart: RRR Lung: distant breath sounds, scattered rhonchi Abd: soft, nontender Ext: + edema Problem List - Problems (1) Acute on chronic respiratory failure with hypoxia and hypercapnia Code(s): J96.21 - ACUTE AND CHRONIC RESPIRATORY FAILURE WITH HYPOXIA; J96.22 - ACUTE AND CHRONIC RESPIRATORY FAILURE WITH HYPERCAPNIA (2) COPD exacerbation Code(s): J44.1 - CHRONIC OBSTRUCTIVE PULMONARY DISEASE W (ACUTE) EXACERBATION (3) Cor pulmonale Code(s): I27.81 - COR PULMONALE (CHRONIC) (4) Obesity hypoventilation syndrome Code(s): E66.2 - MORBID (SEVERE) OBESITY WITH ALVEOLAR HYPOVENTILATION (5) Pulmonary HTN Code(s): I27.20 - PULMONARY HYPERTENSION, UNSPECIFIED (6) Morbid obesity Code(s): E66.01 - MORBID (SEVERE) OBESITY DUE TO EXCESS CALORIES (7) Sleep apnea Code(s): G47.30 - SLEEP APNEA, UNSPECIFIED Qualifiers: Sleep apnea type: obstructive Qualified Code(s): G47.33 - Obstructive sleep apnea (adult) (pediatric) (8) Diastolic dysfunction Code(s): I51.9 - HEART DISEASE, UNSPECIFIED A/P Acute on Chronic Hypoxic and Hypercapneic Respiratory Failure Acute COPD Exacerbation r/o Pneumonia LV diastolic Dysfunction Pulmonary HTN Morbid Obesity RANJIT/OHS Smoker - Prednisone 40mg OD x 5 days then taper by 10mg every 3 days to off - Lexapro daily - inhaled bronchodilators standing and PRN - O2 @ 4 L NC to keep SpO2 88-92% to prevent worsening V/Q mismatch - NIPPV QHS and PRN - Lasix - smoking cessation - encourage weight loss - DVT prophylaxis - Patient would greatly benefit from STR with Pulmonary Rehab. Very high risk for readmission due to multiple co-morbidities Dr Donaldson
[2018-05-06 15:13] VITALS: BP 123/61; PULSE 84; TEMP 98.1
== END 2018-05-06 16:31 | DRG 189 ==
LOC: JER 14:32 → JERBED 19:43 → J4W 21:43
PROVIDERS: ADMIT Internal Medicine; ATTEND Nurse Practitioner Family
PROC: 5A09557 Assistance with Respiratory Ventilation, Greater than 96 Consecutive Hours, Continuous Positive Airway Pressure (ICD-10-PCS; principal; 2018-04-29)
DX: J96.21 Acute and chronic respiratory failure with hypoxia (principal); J18.9 Pneumonia, unspecified organism; I50.33 Acute on chronic diastolic (congestive) heart failure; J44.1 Chronic obstructive pulmonary disease with (acute) exacerbation; Z68.43 Body mass index [BMI] 50.0-59.9, adult; E66.2 Morbid (severe) obesity with alveolar hypoventilation; J96.22 Acute and chronic respiratory failure with hypercapnia; F17.210 Nicotine dependence, cigarettes, uncomplicated; I27.29 Other secondary pulmonary hypertension; I11.0 Hypertensive heart disease with heart failure; F41.8 Other specified anxiety disorders; Z91.14 Patient's other noncompliance with medication regimen; Z99.81 Dependence on supplemental oxygen
CPT/HCPCS: 36415; 36600; 71045-TC-FY; 80048; 80053; 81003; 81015; 82375; 82550; 82803; 83050; 83605; 83735; 83880; 84100; 84484; 85025; 85027; 85610; 87040; 87086; 93005; 93010; 93306-TC; 94640; 94660; 97162-GP; 99285-25; J7620

== ENCOUNTER 2019-04-04 17:15 | Inpatient (IN) | payer MEDICARE, OTHER ==
[2019-04-04] MEDS ORDERED: ALBUTEROL SO4 2.5/IPRATROPIUM 0.5 INH SOL 3 ML VIAL.NEB. NEB ONE ×2 (18:35→19:02)
[2019-04-04 19:24] LABS: ARTERIAL BLOOD GAS BASE EXCESS 11.9 meq/l (-2-2); ARTERIAL BLOOD GAS PO2 67.8 mmHg (80-105); ARTERIAL BLOOD GAS pH 7.28 (7.35-7.45); CARBOXYHEMOGLOBIN 2.6 % (0-2)
--- NOTE | 2019-04-04 19:27 | PDOC ---
History of Present Illness - General Chief Complaint: Shortness of Breath Stated Complaint: SHORTNESS OF BREATH Time Seen by Provider: 04/04/19 18:12 History Source: Patient, Family (son) - History of Present Illness Initial Comments: 04/04/19 19:24 53yo M with PMH of COPD, OHS, CHF, DVT? (Lovenox), Obesity BIBA for sob. Pt states that he has bouts of hyperventilation for the past 3-4 days. He has scheduled gastric bypass surgery and is afraid that he won't be a candidate. Per son, pt has been more drowsy and confused than usual. Pt denies cough, chest pain, fevers, chills, swelling, headaches, abdominal pain, n/v/d. He did not receive any treatments or therapy prior to arrival. Pt states he uses 3L NC when he feels short of breath. PMD: Bonnie PMH: see hpi PSH: none Meds: see med rec Allergies: Nkda 04/04/19 22:00 Son Johnson Past History - Past Medical History Allergies/Adverse Reactions: Allergies Allergy/AdvReac Type Severity Reaction Status Date / Time pistachio nut Allergy Verified 04/04/19 19:37 Home Medications: Ambulatory Orders Acetaminophen 500 mg PO Q6H PRN 04/04/19 Albuterol 2.5/Ipratropium 0.5 [Duoneb -] 1 amp NEB PRN PRN 04/04/19 Calcium Carbonate [Tums] 200 mg PO BID PRN 04/04/19 Enoxaparin [Lovenox -] 40 mg SQ DAILY 04/04/19 Ergocalciferol [Vitamin D2] 50,000 unit PO WEEKLY 04/04/19 Escitalopram Oxalate [Lexapro -] 20 mg PO DAILY 04/04/19 Gabapentin [Neurontin] 100 mg PO TID 04/04/19 Liraglutide [Victoza -] 0.6 mg SQ DAILY 04/04/19 Mag Hydrox/Al Hydrox/Simeth [Mylanta Oral Suspension -] 15 ml PO TID PRN Magnesium Hydroxide [Milk of Magnesia] 30 ml PO DAILY PRN 04/04/19 Meclizine HCl 25 mg PO Q8H PRN 04/04/19 Metoprolol Succinate 25 mg PO DAILY 04/04/19 Ranitidine [Zantac -] 150 mg PO BID 04/04/19 Spironolactone [Aldactone] 25 mg PO DAILY 04/04/19 Telmisartan [Micardis] 80 mg PO DAILY 04/04/19 Anemia: No Asthma: Yes ( CHILD-NO MEDS STABLE) Cancer: No Cardiac Disorders: Yes (CHF) CVA: No COPD: Yes CHF: Yes DVT: Yes Dementia: No Diabetes: No GI Disorders: Yes (GERD) Disorders: No HTN: Yes Hypercholesterolemia: No Liver Disease: No Psychiatric Problems: Yes (Major depressive disorder) Seizures: No Thyroid Disease: No - Surgical History Abdominal Surgery: No Appendectomy: No Cardiac Surgery: No Cholecystectomy: No Lung Surgery: No Neurologic Surgery: No Orthopedic Surgery: No (l knee torn meniscus repair in [facility] 2013 ) - Suicide/Smoking/Psychosocial Hx Smoking History: Never smoked Have you smoked in the past 12 months: No Number of Cigarettes Smoked Daily: 10 Cigars Per Day: 0 'Breaking Loose' booklet given: 04/30/18 Hx Alcohol Use: No Drug/Substance Use Hx: No Substance Use Type: None Hx Substance Use Treatment: No Review of Systems - Review of Systems Constitutional: No: Symptoms Reported HEENTM: No: Symptoms Reported Respiratory: Yes: Shortness of Breath. No: Cough, Wheezing Cardiac (ROS): No: Symptoms Reported ABD/GI: No: Symptoms Reported : No: Symptoms Reported Musculoskeletal: No: Symptoms Reported Integumentary: No: Symptoms Reported Neurological: No: Symptoms reported *Physical Exam - Vital Signs Last Vital Signs Temp Pulse Resp BP Pulse Ox 98.6 F 88 22 H 92/51 L 93 L 04/04/19 17:30 04/04/19 17:30 04/04/19 17:30 04/04/19 17:30 04/04/19 17:30 - Physical Exam General Appearance: Yes: Appropriately Dressed, Obese, Other (falling asleep at times throughout exam). No: Apparent Distress HEENT: positive: EOMI, EBENEZER, Normal ENT Inspection. negative: Pale Conjunctivae , Rhinorrhea Neck: positive: Trachea midline, Supple. negative: Lymphadenopathy (R), Lymphadenopathy (L) Respiratory/Chest: positive: Decreased Breath Sounds (at bases), Rales. negative: Accessory Muscle Use Cardiovascular: positive: Regular Rhythm, Regular Rate, S1, S2. negative: Edema , JVD, Murmur Vascular Pulses: Dorsalis-Pedis (R): 2+, Doralis-Pedis (L): 2+ Gastrointestinal/Abdominal: positive: Normal Bowel Sounds, Soft. negative: Tender Musculoskeletal: negative: CVA Tenderness Extremity: positive: Normal Capillary Refill. 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 O2 Delivery Device No Result Required. Oxygen Flow Rate No Result Required. Vent Mode No Result Required. Vent Rate No Result Required. Mechanical Rate No Result Required. Pressure Support Vent No Result Required. - RADIOLOGY Radiology Studies Ordered: Category Date Time Status CHEST X-RAY PORTABLE* [RAD] Stat Radiology 04/04/19 18:19 Taken - Medications Given in the ED: ED Medications Discontinued Medications Generic Name Dose Route Start Last Admin Trade Name Freq PRN Reason Stop Dose Admin Albuterol/Ipratropium 1 amp 04/04/19 18:35 04/04/19 19:15 Duoneb - NEB 04/04/19 18:36 1 amp ONCE ONE Administration Medical Decision Making - Medical Decision Making 04/04/19 21:21 53yo M with PMH of COPD, OHS, CHF, DVT? (Lovenox), Obesity BIBA for sob. Pt states that he has bouts of hyperventilation for the past 3-4 days. He has scheduled gastric bypass surgery and is afraid that he won't be a candidate. Per son, pt has been more drowsy and confused than usual. Pt denies cough, chest pain, fevers, chills, swelling, headaches, abdominal pain, n/v/d. He did not receive any treatments or therapy prior to arrival. Vitals: bp on arrival lited as 90s/50s however repeat 152/126, saturating low 90s/high 80s on 3L NC, afebrile, normocardic PE: diffuse rales, decreased breath sounds at bases. pt occasionally falling asleep. tachypeniec when talking Ddx includes but not limited to hypercapnic respiratory failure, copd exacerbation, chf exacerbation, pna, effusions, pe, acs given history, low suspicion for pe (pt is on Lovenox), more likely to be copd exacerbation with respiratory failure. -abg, cbc, cmp, troponin -ekg, cxr -duonebs -abg: pCO2 92, low O2. Labs show low anion gap and elevated HCO3. pH 3.28. likely respiratory acidosis. -BiPAP cxr: poor film, possible infiltrate v. congestion in RLL. -EKG: nsr added blood cultures, lactate, bnp -solumedrol, ceftriaxone, azithromycin. -rpt ABG -trop negative, wbc 11.2 bnp 700 -last echo 1y ago shows ef60-65%, reduced RV contraction will admit for hypercapnic respiratory failure, copd exacerbation. 04/04/19 21:31 rpt abg pCO2 100, pH 7.26, increased O2. Pt is still retaining. Will increase settings to 16/6 with rate of 20. Pt would benefit from icu admission. pt is more difficult to arouse, low threshold for intubation at this time. ICU resident evaluated pt, will change vent settings to 20/6 and reassess. Pt accepted to ICU. *DC/Admit/Observation/Transfer Diagnosis at time of Disposition: Acute respiratory failure with hypoxia and hypercarbia, COPD exacerbation - Discharge Dispostion Condition at time of disposition: Stable - Referrals Referrals: Jamie Nicole [Primary Care Provider] - - Patient Instructions - Post Discharge Activity
[2019-04-04 19:36] LABS: ALLENS TEST POSITIVE
[2019-04-04 19:52] LABS: BASO % 0.7 % (0-2.0); EOS % 0.9 % (0-4.5); HEMATOCRIT 42.5 % (35.4-49); HEMOGLOBIN 13.2 GM/dL (11.7-16.9); LYMPH % 10.4 % (8-40); MCH 28.2 pg (25.7-33.7); MCHC 31.2 g/dl (32.0-35.9); MEAN CELL VOLUME 90.4 fl (80-96); MEAN PLT VOLUME 6.9 fl (7.5-11.1); MONO % 5.5 % (3.8-10.2); NEUT % 82.5 % (42.8-82.8); PLATELET COUNT 273 K/MM3 (134-434); RDW 17.1 % (11.9-15.9); WHITE BLOOD COUNT 11.4 K/mm3 (4.0-10.0)
[2019-04-04 20:40] LABS: INR 1.08 (0.83-1.09); PROTHROMBIN TIME (PATIENT) 12.8 SEC (9.7-13.0)
[2019-04-04 20:42] LABS: ALBUMIN 3.2 g/dl (3.4-5.0); ALK PHOS 84 U/L (45-117); ANION GAP 2 MMOL/L (8-16); BILIRUBIN,TOTAL 0.4 mg/dL (0.2-1); BLOOD UREA NITROGEN 20.8 mg/dL (7-18); CALCIUM 8.5 mg/dL (8.5-10.1); CHLORIDE 95 mmol/L (98-107); CO2 43 mmol/L (21-32); CREATININE 0.8 mg/dL (0.55-1.3); GLUCOSE,RANDOM 104 mg/dL (74-106); MAGNESIUM 2.5 mg/dL (1.8-2.4); POTASSIUM 5.3 mmol/L (3.5-5.1); SGOT/AST 18 U/L (15-37); SGPT/ALT 17 U/L (13-61); SODIUM 140 mmol/L (136-145); TOT PROT 6.5 g/dl (6.4-8.2)
[2019-04-04 20:43] LABS: ACTIVATED PTT 36.9 SECONDS (25.2-36.5)
[2019-04-04] MEDS ORDERED: methylPREDNISolone NA SUCC 125 MG/2 ML VIAL IVPUSH ONE (20:51)
[2019-04-04] MEDS ORDERED: CEFTRIAXONE 1 GM in DEXTROSE 5%-WATER - 100 ML IVPB ONE (20:52)
[2019-04-04] MEDS ORDERED: AZITHROMYCIN IVPB 500 MG in DEXTROSE 5%-WATER - 250 ML IVPB ONE (20:53)
[2019-04-04] MEDS ORDERED: AZITHROMYCIN IVPB 500 MG/250 ML BAG IVPB ONE (20:59)
[2019-04-04] MEDS ORDERED: CEFTRIAXONE 1 GM/50 ML BAG ONE (20:59)
[2019-04-04] MEDS ORDERED: methylPREDNISolone NA SUCC 125 MG/2 ML VIAL ONE (21:00)
[2019-04-04 21:22] LABS: ARTERIAL BLD GAS O2 SATURATION 92.5 % (95-98); ARTERIAL BLOOD GAS BASE EXCESS 11.8 meq/l (-2-2); ARTERIAL BLOOD GAS PO2 73.5 mmHg (80-105); ARTERIAL BLOOD GAS pH 7.26 (7.35-7.45); CARBOXYHEMOGLOBIN 2.5 % (0-2)
--- NOTE | 2019-04-04 21:22 | PDOC ---
Documentation entered by Jovanna Curry SCRIBE, acting as scribe for Leslie Casper DO. Leslie Casper DO: This documentation has been prepared by the Patricio gurrola Brenda, SCRIBE, under my direction and personally reviewed by me in its entirety. I confirm that the documentation accurately reflects all work , treatment, procedures, and medical decision making performed by me. Attending Attestation - Resident Resident Name: Tanja Simon - ED Attending Attestation I have performed the following: I have examined & evaluated the patient, The case was reviewed & discussed with the resident, I agree w/resident's findings & plan, Exceptions are as noted - HPI HPI: 04/04/19 20:43 The patient is a 53 year old male, with a significant PMH of morbid obesity, HTN , CHF and COPD who presents to the emergency department [facility] from [facility] with increased SOB. Patient has been on short-term rehabilitation at [facility] for gastric bypass. Patient reports experiencing bouts of hyperventilation. The patient denies chest pain, headache and dizziness. Denies fever, chills, nausea, vomiting, diarrhea and constipation. Son, by the bedside, Austin, would like to be contacted/informed of any updates ) Allergies: NKA Past surgical history: Torn meniscus surgery Social history: Hx of alcohol use. PCP: Dr. Nicole - Physicial Exam PE: 04/04/19 19:30 Agree with resident's exam. - Critical Care Time Total Critical Care Time: 90 Critical Care Statement: The care of this patient involved high complexity decision making to prevent further life threatening deterioration of the patient 's condition and/or to evaluate & treat vital organ system(s) failure or risk of failure. - Medical Decision Making 04/04/19 21:16 53-year-old male currently in extended-stay rehabilitation with shortness of breath Chest x-ray suggests bilateral increased interstitial markings, pneumonia versus CHF Arterial blood gas suggests acute respiratory failure Plan for BiPAP, antibiotics Patient has also received nebulizer treatments as well as Solu-Medrol 125 mg with some improvement Repeat arterial blood gas pending
--- NOTE | 2019-04-04 21:22 | PN ---
Teaching Attending Note Name of Resident: Aimee Orourke ATTENDING PHYSICIAN STATEMENT I saw and evaluated the patient. I reviewed the resident's note and discussed the case with the resident. I agree with the resident's findings and plan as documented. SUBJECTIVE: Patient is a 53 year old man with PMH of COPD, Obesity hypoventilation syndrome , Morbid obesity, HTN and COPD who presents from [facility] with SOB. Patient states that he has bouts of hyperventilation for the past 3-4 days. He has scheduled gastric bypass surgery and is afraid that he won't be a candidate. Per son, patient has been more drowsy and confused than usual. He denies cough, chest pain, fevers, chills, swelling, headaches, abdominal pain, nausea, vomiting or diarrhea. Says he has not been using his CPAP for logistic reasons and has had sick contacts. He did not receive any treatments or therapy prior to arrival. ABG in the ER showed respiratory acidosis with acute respiratory failure and patient was placed on BiPAP. Getting antibiotics, received nebulizer treatments as well as Solu-Medrol 125 mg with some improvement. OBJECTIVE: Somnolent but readily arousable Vital Signs Period Temp Pulse Resp BP Sys/Melgoza Pulse Ox Last 24 Hr 98.6 F 88 22 92/51 93-96 HEENT: No Jaundice, eye redness or discharge, PERRLA, EOMI. Normocephalic, atraumatic. External ears are normal and hearing is grossly intact. No nasal discharge. Neck: Supple, nontender. No palpable adenopathy or thyromegaly. No JVD Chest: Good effort. Prolonged expiration. Clear to percussion. Heart: Regular. No S3, rub or murmur Abdomen: Not distended, soft, nontender and no HSM. No rebound or guarding. Normal bowel sounds. Ext: Peripheral pulses intact. No leg edema. Skin: Warm and dry. No petechiae, rash or ecchymosis. Neuro: Somnolent but readily arousable. Oriented x3. CN 2-12 grossly intact. Sensation grossly intact in all four extremities and DTR are symmetric. Psych: Appropriate mood and affect. Good insight. Current Medications Generic Name Dose Route Start Last Admin Trade Name Freq PRN Reason Stop Dose Admin Azithromycin 500 mg/ Dextrose 250 mls @ 250 mls/hr 04/04/19 20:53 IVPB 04/04/19 21:52 ONCE ONE Ceftriaxone Sodium 1 gm/ 100 mls @ 200 mls/hr 04/04/19 20:52 04/04/19 21:12 Dextrose IVPB 04/04/19 21:21 200 mls/hr ONCE ONE Administration Protocol Home Medications Medication Instructions Recorded Albuterol 2.5/Ipratropium 0.5 1 amp NEB Q4H amp 05/06/18 [Duoneb -] Amlodipine Besylate [Norvasc -] 5 mg PO DAILY tablet 05/06/18 Enoxaparin [Lovenox -] 40 mg SQ DAILY disp.syrin 05/06/18 Escitalopram Oxalate [Lexapro -] 10 mg PO DAILY tablet 05/06/18 Furosemide [Lasix -] 40 mg PO BID@0600,1400 tablet 05/06/18 Lidocaine 5% Patch [Lidoderm -] 1 patch TP DAILY patch 05/06/18 Lidocaine 5% Patch [Lidoderm -] 1 patch TP DAILY patch 05/06/18 Metoprolol Succinate [Toprol XL -] 25 mg PO DAILY tab.sr.24h 05/06/18 Nicotine Patch [Nicoderm Patch -] 21 mg TD DAILY patch 05/06/18 Pantoprazole Sodium [Protonix -] 40 mg PO DAILY tablet.ec 05/06/18 Spironolactone [Aldactone -] 25 mg PO DAILY tablet 05/06/18 Valsartan [Diovan] 160 mg PO BID tablet 05/06/18 predniSONE [Deltasone -] 40 mg PO DAILY tablet 05/06/18 traMADol HCL [Ultram -] 50 mg PO Q8H PRN #30 tablet MDD 3 05/06/18 Abnormal Lab Results 04/04/19 04/04/19 04/04/19 19:05 19:17 19:17 WBC 11.4 H MCHC 31.2 L RDW 17.1 H MPV 6.9 L D Absolute Neuts (auto) 9.4 H PTT (Actin FS) ABG pH 7.28 L ABG pCO2 at Pt Temp 94.0 H* ABG pO2 at Pt Temp 67.8 L ABG HCO3 42.7 H ABG O2 Sat (Measured) 91.0 L ABG Base Excess 11.9 H Carboxyhemoglobin 2.6 H Potassium 5.3 H Chloride 95 L Carbon Dioxide 43 H Anion Gap 2 L BUN 20.8 H Magnesium 2.5 H B-Natriuretic Peptide Albumin 3.2 L 04/04/19 04/04/19 19:55 19:55 WBC MCHC RDW MPV Absolute Neuts (auto) PTT (Actin FS) 36.9 H ABG pH ABG pCO2 at Pt Temp ABG pO2 at Pt Temp ABG HCO3 ABG O2 Sat (Measured) ABG Base Excess Carboxyhemoglobin Potassium Chloride Carbon Dioxide Anion Gap BUN Magnesium B-Natriuretic Peptide 713.0 H Albumin ASSESSMENT AND PLAN: 1. Hypercapnic and Hypoxic respiratory failure/COPD exacerbation - Likely precipitated by several factors including lack of CPAP use, exposure to infection and possibly suboptimal LV function. Doing better with initial treatment in the ER. CXR shows cardiomegaly and increased pulmonary congestion. WIll continue BiPAP, solumedrol 40 mg q 6 hours, Duoneb, Rocephin and Azithromycin. EKG pending. Mild hperkalemia likely side effect of Aldactone and Diovan. Will repeat BMP after adequate fluid intake that should enhance K+ excretion. ECHO to assess LV function. 2. DM For now, we will hold the home diabetes drugs and implement sliding scale insulin regimen. Provide comprehensive diabetes care with patient teaching and counseling about the importance of adherence to prescribed diabetes regimen, euglycemia, eye care and foot care. 3. Morbid Obesity Counseled on the risks associated with obesity. Will provide patient all the necessary assistance, counseling and positive reinforcement to facilitate weight loss. Consult change management consultant. 4. Hypertension - Restart suitable outpatient antihypertensive drugs when clinically appropriate. Revise regimen to ensure good BP control. Nonpharmacologic measures to control hypertension like weight loss, salt restriction and exercise discussed. 5. DVT prophylaxis - Lovenox 40 mg SQ q 12 6. Advance directives - Full code
[2019-04-04 21:25] LABS: ARTERIAL BLOOD GAS PCO2 100 mmHg (35-45)
[2019-04-04 23:24] LABS: ARTERIAL BLD GAS O2 SATURATION 90.6 % (95-98); ARTERIAL BLOOD GAS BASE EXCESS 10.7 meq/l (-2-2); ARTERIAL BLOOD GAS PO2 64.8 mmHg (80-105); CARBOXYHEMOGLOBIN 2.6 % (0-2)
--- NOTE | 2019-04-05 01:09 | CONSULT ---
Consultation: CONSULT SERVICE: ICU Resident HISTORY OF PRESENT ILLNESS: 53yo M w/ significant history of OHS, COPD with chronic retention, who presents today due to somnolence noted by son. At time of exam pt is currently alert and oriented x3 with normal mentation and not lethargic. Pt reports he was recently in [facility] where he was sick with notable URI. Pt reports nonproductive cough without any fevers during this time. Pt has been compliant with his medication and his prior financial problems have since been resolved. Pt also reports that he will be going for bariatric surgery, but has been lately hyperventilating every so often due to anxiety from the procedure. Pt was placed on NIPPV of initial settings 10/5/RR 14 despite his morbid obesity and was noted to have worsening ABG upon repeat. Pt was given Medrol 125mg IVP, Rocephin, and Zithromax as well. Pt denies any fever/chills, nausea, vomiting, chest pain, palpitations, abdominal pain, diarrhea/constipation, dysuria, polyuria, weakness, numbness/tingling. REVIEW OF SYSTEMS: As per HPI PHYSICAL EXAMINATION Vital Signs - 24 hr 04/04/19 04/04/19 04/04/19 17:30 18:00 19:55 Temperature 98.6 F Pulse Rate 88 Pulse Rate [ Apical] Respiratory 22 H Rate Blood Pressure 92/51 L Blood Pressure [Left Arm] O2 Sat by Pulse 93 L 94 L 96 Oximetry (%) 04/04/19 04/04/19 04/05/19 21:15 22:20 00:10 Temperature Pulse Rate 80 Pulse Rate [ 86 80 Apical] Respiratory 18 24 H Rate Blood Pressure Blood Pressure 105/77 102/64 [Left Arm] O2 Sat by Pulse 95 93 L 90 L Oximetry (%) GENERAL: Mild distress, awake, alert, and fully oriented HEENT: Nc/AT, EOMI, NIDHI, sclera anicteric, [id number] mucosa NECK: No JVD LUNGS: Distant breath sounds bilaterally. Mild expiratory wheezes, and no crackles. NIPPV 12/5/40%/RR18 at time of exam HEART: Tachycardic with regular rhythm, normal S1 and S2 without murmur ABDOMEN: Soft, obese, NT/ND, hypoactive bowel sounds, no guarding, no hepatojugular reflux MUSCULOSKELETAL: No CVA tenderness. EXTREMITIES: 2+ DP pulses, warm, well-perfused. No calf tenderness. PSYCHIATRIC: Cooperative. Good eye contact. Appropriate mood and affect. SKIN: Warm, dry, no rashes, chronic venous stasis changes in lower extremities. Laboratory Results 04/04/19 04/04/19 04/04/19 19:05 19:17 19:17 WBC 11.4 H RBC 4.70 Hgb 13.2 Hct 42.5 MCV 90.4 MCH 28.2 MCHC 31.2 L RDW 17.1 H Plt Count 273 D MPV 6.9 L D Absolute Neuts (auto) 9.4 H Neutrophils % 82.5 Lymphocytes % 10.4 D Monocytes % 5.5 Eosinophils % 0.9 D Basophils % 0.7 D Nucleated RBC % 0 PT with INR INR PTT (Actin FS) Anticoagulation Therapy No Result Required. Puncture Site Right radial ABG pH 7.28 L ABG pCO2 at Pt Temp 94.0 H* ABG pO2 at Pt Temp 67.8 L ABG HCO3 42.7 H ABG O2 Sat (Measured) 91.0 L ABG O2 Content 16.9 ABG Base Excess 11.9 H Neto Test Positive Carboxyhemoglobin 2.6 H Methemoglobin 0.5 O2 Delivery Device N/c Oxygen Flow Rate 4 lpm Vent Mode No Result Required. Vent Rate No Result Required. Mechanical Rate No Result Required. Pressure Support Vent No Result Required. Sodium 140 Potassium 5.3 H Chloride 95 L Carbon Dioxide 43 H Anion Gap 2 L BUN 20.8 H Creatinine 0.8 Est GFR (CKD-EPI)AfAm 117.38 Est GFR (CKD-EPI)NonAf 101.27 Random Glucose 104 Lactic Acid Calcium 8.5 Magnesium 2.5 H Total Bilirubin 0.4 AST 18 ALT 17 Alkaline Phosphatase 84 Troponin I < 0.02 B-Natriuretic Peptide Total Protein 6.5 Albumin 3.2 L 04/04/19 04/04/19 04/04/19 19:55 19:55 19:55 WBC RBC Hgb Hct MCV MCH MCHC RDW Plt Count MPV Absolute Neuts (auto) Neutrophils % Lymphocytes % Monocytes % Eosinophils % Basophils % Nucleated RBC % PT with INR 12.80 INR 1.08 PTT (Actin FS) 36.9 H Anticoagulation Therapy Puncture Site ABG pH ABG pCO2 at Pt Temp ABG pO2 at Pt Temp ABG HCO3 ABG O2 Sat (Measured) ABG O2 Content ABG Base Excess Neto Test Carboxyhemoglobin Methemoglobin O2 Delivery Device Oxygen Flow Rate Vent Mode Vent Rate Mechanical Rate Pressure Support Vent Sodium Potassium Chloride Carbon Dioxide Anion Gap BUN Creatinine Est GFR (CKD-EPI)AfAm Est GFR (CKD-EPI)NonAf Random Glucose Lactic Acid 0.6 Calcium Magnesium Total Bilirubin AST ALT Alkaline Phosphatase Troponin I B-Natriuretic Peptide 713.0 H Total Protein Albumin 04/04/19 04/04/19 21:09 23:00 WBC RBC Hgb Hct MCV MCH MCHC RDW Plt Count MPV Absolute Neuts (auto) Neutrophils % Lymphocytes % Monocytes % Eosinophils % Basophils % Nucleated RBC % PT with INR INR PTT (Actin FS) Anticoagulation Therapy No Result Required. No Result Required. Puncture Site No Result Required. Left radial ABG pH 7.26 L 7.30 L ABG pCO2 at Pt Temp 100 H* 84.0 H* ABG pO2 at Pt Temp 73.5 L 64.8 L ABG HCO3 43.2 H 40.5 H ABG O2 Sat (Measured) 92.5 L 90.6 L ABG O2 Content 17.0 16.9 ABG Base Excess 11.8 H 10.7 H Neto Test No Result Required. No Result Required. Carboxyhemoglobin 2.5 H 2.6 H Methemoglobin 0.5 0.6 O2 Delivery Device No Result Required. Bipap Oxygen Flow Rate No Result Required. 35% Vent Mode No Result Required. S/t Vent Rate No Result Required. 22 Mechanical Rate No Result Required. No Result Required. Pressure Support Vent No Result Required. 18/10 Sodium Potassium Chloride Carbon Dioxide Anion Gap BUN Creatinine Est GFR (CKD-EPI)AfAm Est GFR (CKD-EPI)NonAf Random Glucose Lactic Acid Calcium Magnesium Total Bilirubin AST ALT Alkaline Phosphatase Troponin I B-Natriuretic Peptide Total Protein Albumin Active Medications Generic Name Dose Route Start Last Admin Trade Name Freq PRN Reason Stop Dose Admin Enoxaparin Sodium 40 mg 04/05/19 10:00 Lovenox - SQ DAILY MINDI Insulin Aspart 1 vial 04/05/19 07:00 Novolog Vial Sliding Scale - SQ ACHS MINDI Protocol ASSESSMENT/PLAN: Acute hypercapneic hypoxic respiratory distress Obesity hyperventilation syndrome Suspected RANJIT R/o CAPna HTN T2DM Anxiety/Depression --Changed pt's NIPPV settings to 22/10/FiO2 35%/RR22 --Pt's repeat ABG shows 7.30/85/135 (normalizing trend) with normal mentation since being on these settings for 1hr --NIPPV to continue at this time with current settings --Pt remains hemodynamically stable with appropriate mentation --Unless ABG begins to escalate in hypercarbia or pt begins to have notable lethargy would avoid intubation due to his obesity hypoventilation syndrome which would cause prolonged period of intubation and susceptibility to VAE's --Monitor BP given higher levels of intrathoracic pressures --Aspiration precautions --Cannot r/o RLL infiltrate as pt's hand is notable to be obscuring his R diaphragmatic window --Pt received CAPna antibiotic treatment however given lack of fevers and nonimpressive WBC would observe off ABX for now --Highly suspicious for URI causing COPD exacerbation --Continue Medrol 40mg IVP BID --Albuterol PRN q4h for wheezing/shortness of breath --Duoneb QID MINDI --Continue rest of pt's home medications with exception to Victoza, Aldactone, FEN: Fluids: Would avoid at this time due to low respiratory reserve if overloaded and no signs of sepsis currently Electrolyte abnormalities: Mild hyperkalemia; monitor for now and hold K+ sparing diuretics Nutrition: NPO while on NIPPV PPX: DVT - Lovenox 40 daily SQ GI - Zantac 150mg considering steroid treatment for duration of hospitalization Dispo: Can transfer to telemetry monitoring in AM pending ABG/mental status/ respiratory status continue to be normalizing Tera Figueroa, DO - IM PGY-3 Visit type - Emergency Visit Emergency Visit: Yes ED Registration Date: 04/04/19 Care time: The patient presented to the Emergency Department on the above date and was hospitalized for further evaluation of their emergent condition. - New Patient This patient is new to me today: Yes Date on this admission: 04/05/19 - Critical Care Critical Care patient: Yes Total Critical Care Time (in minutes): 35 Critical Care Statement: The care of this patient involved high complexity decision making to prevent further life threatening deterioration of the patient 's condition and/or to evaluate & treat vital organ system(s) failure or risk of failure.
[2019-04-05] MEDS ORDERED: ALBUTEROL SO4 0.083% IH SOL 2.5 MG/3 ML VIAL.NEB. NEB PRN (01:21)
[2019-04-05 01:53] VITALS: BMI 58.1
[2019-04-05] MEDS ORDERED: PNEUMOC 13-VAL CONJ-DIP CRM/PF 0.5 ML DISP.SYRIN IM ONE (01:58)
--- NOTE | 2019-04-05 03:21 | HP ---
CHIEF COMPLAINT: increased SOB PCP: Bonnie HISTORY OF PRESENT ILLNESS: Mr. Rosario is a 53yo male with COPD, OHS, morbid obesity, and HTN who presents with increased SOB x 3 days. He reports a sick contact at the facility in which he lives. He is not very mobile; therefore, he is unable to quantify well any changes in dyspnea on exertion. He reports an increase in coughing but is non- productive. Pt is on 3L O2 at home. He has not been using his home CPAP for an unspecified amount of time. He also has had some increase in LE edema. He denies wheezing and CP. He has had no chills, fever, PEREZ, dizziness, nausea, or vomiting. He reports recent urinary incontinence, but he is unsure how long it has been. Patient is having gastric bypass in the fall and is concerned his illness may prevent him from having the procedure. ER course was notable for: (1) methylprednisolone (2) duo-nebs (3) BiPAP placement (4) abx administration PAST MEDICAL HISTORY: 1. COPD 2. OHS 3. morbid obesity 4. HTN PAST SURGICAL HISTORY: none Social History: Smoking: none Alcohol: none Drugs: none Pt is disabled and lives at nursing facility Family History: not attempted Allergies NKDA pistachio nut Allergy (Verified 04/04/19 19:37) HOME MEDICATIONS: Home Medications Medication Instructions Recorded Acetaminophen 500 mg PO Q6H PRN 04/04/19 Albuterol 2.5/Ipratropium 0.5 1 amp NEB PRN PRN 04/04/19 [Duoneb -] Calcium Carbonate [Tums] 200 mg PO BID PRN 04/04/19 Enoxaparin [Lovenox -] 40 mg SQ DAILY 04/04/19 Ergocalciferol [Vitamin D2] 50,000 unit PO WEEKLY 04/04/19 Escitalopram Oxalate [Lexapro -] 20 mg PO DAILY 04/04/19 Gabapentin [Neurontin] 100 mg PO TID 04/04/19 Liraglutide [Victoza -] 0.6 mg SQ DAILY 04/04/19 Mag Hydrox/Al Hydrox/Simeth 15 ml PO TID PRN 04/04/19 [Mylanta Oral Suspension -] Magnesium Hydroxide [Milk of 30 ml PO DAILY PRN 04/04/19 Magnesia] Meclizine HCl 25 mg PO Q8H PRN 04/04/19 Metoprolol Succinate 25 mg PO DAILY 04/04/19 Ranitidine [Zantac -] 150 mg PO BID 04/04/19 Spironolactone [Aldactone] 25 mg PO DAILY 04/04/19 Telmisartan [Micardis] 80 mg PO DAILY 04/04/19 REVIEW OF SYSTEMS CONSTITUTIONAL: Present: generalized weakness Absent: fever, chills, diaphoresis, malaise, loss of appetite, weight change HEENT: Absent: throat swelling, difficulty swallowing, mouth swelling, ear pain, eye pain, visual changes CARDIOVASCULAR: Present: peripheral edema Absent: chest pain, syncope, palpitations, irregular heart rate, lightheadedness RESPIRATORY: Present: cough, SOB Absent: dyspnea with exertion, orthopnea, wheezing, stridor, hemoptysis GASTROINTESTINAL: Absent: abdominal pain, abdominal distension, nausea, vomiting, diarrhea, constipation GENITOURINARY: Present: urinary incontinence Absent: dysuria, frequency, urgency MUSCULOSKELETAL: Absent: myalgia, arthralgia, joint swelling, back pain, neck pain SKIN: Absent: rash, itching, pallor HEMATOLOGIC/IMMUNOLOGIC: Absent: easy bleeding, easy bruising, lymphadenopathy, frequent infections ENDOCRINE: Absent: unexplained weight gain, unexplained weight loss, heat intolerance, cold intolerance NEUROLOGIC: Present: mental status changes Absent: headache, focal weakness or paresthesias, dizziness, unsteady gait, seizure, bowel incontinence PSYCHIATRIC: Absent: anxiety, depression, suicidal or homicidal ideation, hallucinations. PHYSICAL EXAMINATION Vital Signs - 24 hr 04/04/19 04/04/19 04/04/19 17:30 18:00 19:55 Temperature 98.6 F Pulse Rate 88 Pulse Rate [ Apical] Respiratory 22 H Rate Blood Pressure 92/51 L Blood Pressure [Left Arm] O2 Sat by Pulse 93 L 94 L 96 Oximetry (%) 04/04/19 04/04/19 04/04/19 20:54 21:15 22:20 Temperature 97.6 F Pulse Rate 84 Pulse Rate [ 86 Apical] Respiratory 22 H 18 Rate Blood Pressure 131/92 Blood Pressure 105/77 [Left Arm] O2 Sat by Pulse 95 93 L Oximetry (%) 04/05/19 04/05/19 04/05/19 00:10 01:06 01:43 Temperature 97.6 F Pulse Rate 80 84 Pulse Rate [ 80 Apical] Respiratory 24 H 22 H Rate Blood Pressure 131/92 Blood Pressure 102/64 [Left Arm] O2 Sat by Pulse 90 L 92 L Oximetry (%) GENERAL: Difficult to stay awake, oriented x3, on BiPAP breathing without distress, morbidly obese HEAD: Normal with no signs of trauma. EYES: Pupils equal, round and reactive to light, extraocular movements intact, sclera anicteric, conjunctiva clear. No lid lag. EARS, NOSE, THROAT: Ears normal, nares patent, Moist mucous membranes. NECK: Normal range of motion, supple without lymphadenopathy, JVD, or masses. Erythema in skinfold. LUNGS: Breath sounds equal, clear to auscultation bilaterally. No wheezes, and no crackles. No accessory muscle use. HEART: Regular rate and rhythm, normal S1 and S2 without murmur, rub or gallop. ABDOMEN: Soft, nontender, not distended, normoactive bowel sounds, no guarding, no rebound, no masses. No hepatomegaly or splenomegaly. MUSCULOSKELETAL: Normal range of motion at all joints. No bony deformities or tenderness. UPPER EXTREMITIES: 2+ pulses, warm, well-perfused. No cyanosis. Minimal clubbing. Edematous hands, non-pitting. LOWER EXTREMITIES: 2+ pulses, warm, well-perfused. LE bilaterally edematous, non -pitting. Skin color changes on left lower leg NEUROLOGICAL: Cranial nerves II-XII intact. Normal speech. Unable to assess gait. PSYCHIATRIC: Cooperative. Good eye contact. Appropriate mood and affect. SKIN: Warm, dry, normal turgor, no rashes or lesions noted, normal capillary refill. Laboratory Results - last 24 hr 04/04/19 04/04/19 04/04/19 19:05 19:17 19:17 WBC 11.4 H RBC 4.70 Hgb 13.2 Hct 42.5 MCV 90.4 MCH 28.2 MCHC 31.2 L RDW 17.1 H Plt Count 273 D MPV 6.9 L D Absolute Neuts (auto) 9.4 H Neutrophils % 82.5 Lymphocytes % 10.4 D Monocytes % 5.5 Eosinophils % 0.9 D Basophils % 0.7 D Nucleated RBC % 0 PT with INR INR PTT (Actin FS) Anticoagulation Therapy No Result Required. Puncture Site Right radial ABG pH 7.28 L ABG pCO2 at Pt Temp 94.0 H* ABG pO2 at Pt Temp 67.8 L ABG HCO3 42.7 H ABG O2 Sat (Measured) 91.0 L ABG O2 Content 16.9 ABG Base Excess 11.9 H Neto Test Positive Carboxyhemoglobin 2.6 H Methemoglobin 0.5 O2 Delivery Device N/c Oxygen Flow Rate 4 lpm Vent Mode No Result Required. Vent Rate No Result Required. Mechanical Rate No Result Required. Pressure Support Vent No Result Required. Sodium 140 Potassium 5.3 H Chloride 95 L Carbon Dioxide 43 H Anion Gap 2 L BUN 20.8 H Creatinine 0.8 Est GFR (CKD-EPI)AfAm 117.38 Est GFR (CKD-EPI)NonAf 101.27 POC Glucometer Random Glucose 104 Lactic Acid Calcium 8.5 Magnesium 2.5 H Total Bilirubin 0.4 AST 18 ALT 17 Alkaline Phosphatase 84 Troponin I < 0.02 B-Natriuretic Peptide Total Protein 6.5 Albumin 3.2 L 04/04/19 04/04/19 04/04/19 19:55 19:55 19:55 WBC RBC Hgb Hct MCV MCH MCHC RDW Plt Count MPV Absolute Neuts (auto) Neutrophils % Lymphocytes % Monocytes % Eosinophils % Basophils % Nucleated RBC % PT with INR 12.80 INR 1.08 PTT (Actin FS) 36.9 H Anticoagulation Therapy Puncture Site ABG pH ABG pCO2 at Pt Temp ABG pO2 at Pt Temp ABG HCO3 ABG O2 Sat (Measured) ABG O2 Content ABG Base Excess Neto Test Carboxyhemoglobin Methemoglobin O2 Delivery Device Oxygen Flow Rate Vent Mode Vent Rate Mechanical Rate Pressure Support Vent Sodium Potassium Chloride Carbon Dioxide Anion Gap BUN Creatinine Est GFR (CKD-EPI)AfAm Est GFR (CKD-EPI)NonAf POC Glucometer Random Glucose Lactic Acid 0.6 Calcium Magnesium Total Bilirubin AST ALT Alkaline Phosphatase Troponin I B-Natriuretic Peptide 713.0 H Total Protein Albumin 04/04/19 04/04/19 04/05/19 21:09 23:00 02:13 WBC RBC Hgb Hct MCV MCH MCHC RDW Plt Count MPV Absolute Neuts (auto) Neutrophils % Lymphocytes % Monocytes % Eosinophils % Basophils % Nucleated RBC % PT with INR INR PTT (Actin FS) Anticoagulation Therapy No Result Required. No Result Required. Puncture Site No Result Required. Left radial ABG pH 7.26 L 7.30 L ABG pCO2 at Pt Temp 100 H* 84.0 H* ABG pO2 at Pt Temp 73.5 L 64.8 L ABG HCO3 43.2 H 40.5 H ABG O2 Sat (Measured) 92.5 L 90.6 L ABG O2 Content 17.0 16.9 ABG Base Excess 11.8 H 10.7 H Neto Test No Result Required. No Result Required. Carboxyhemoglobin 2.5 H 2.6 H Methemoglobin 0.5 0.6 O2 Delivery Device No Result Required. Bipap Oxygen Flow Rate No Result Required. 35% Vent Mode No Result Required. S/t Vent Rate No Result Required. 22 Mechanical Rate No Result Required. No Result Required. Pressure Support Vent No Result Required. 1810 Sodium Potassium Chloride Carbon Dioxide Anion Gap BUN Creatinine Est GFR (CKD-EPI)AfAm Est GFR (CKD-EPI)NonAf POC Glucometer 130 Random Glucose Lactic Acid Calcium Magnesium Total Bilirubin AST ALT Alkaline Phosphatase Troponin I B-Natriuretic Peptide Total Protein Albumin ASSESSMENT/PLAN: The patient is a 53yo male with COPD and morbid obesity who has had increase in SOB over the last 3 days. He reports having a sick contact where he lives. 1. Acute on chronic respiratory acidosis Before exam patient's ABG was pH 7.26, pCO2 100. He was obtunded and placed on BiPAP. He was arousable on exam and repeat ABG showed improvement pH 7.3, pCO2 84. Patient is likely in chronic acidosis because of COPD and OHS. -Continue BiPAP and monitor ABG -Echo r/o heart failure 2. COPD On exam, no wheezing was appreciated, although it is possible he has breathing changes that his body habitus makes difficult to hear. He also reports increased SOB and cough. Duo-neb, methylprednisolone, one time azithromycin 500mg, and one time ceftriaxone 1g given in ED. -Standing albuterol/atrovent duo-nebs PRN SOB/cough -Methylprednisolone 40mg Q6 hours -Azithromycin 250mg Q daily x 4 days -Ceftriaxone 1g Q daily x 5 days 3. r/o infection Patient is afebrile and normotensive, but he has congestion on CXR, and possible new-onset urinary incontinence. These are possible sources for infection. Also has WBC 11.4. -blood culture -U/A -urine culture -abx as stated above, will adjust if needed per culture results 4. hyperkalemia 5.3 -monitor with CMP -tx with Calcium carbonate if worsening 5. DM BG 104 -d/c home med, start SSI DVT prophylaxis home dose lovenox 30mg Q daily FEN NS closely monitor electrolytes, adjust as needed NPO Visit type - Emergency Visit Emergency Visit: Yes ED Registration Date: 04/04/19 Care time: The patient presented to the Emergency Department on the above date and was hospitalized for further evaluation of their emergent condition. - New Patient This patient is new to me today: Yes Date on this admission: 04/05/19 - Critical Care Critical Care patient: No ATTENDING PHYSICIAN STATEMENT I saw and evaluated the patient. I reviewed the resident's note and discussed the case with the resident. I agree with the resident's findings and plan as documented. SUBJECTIVE: OBJECTIVE: ASSESSMENT AND PLAN:
[2019-04-05] MEDS ORDERED: HALOPERIDOL LACTATE 5 MG/ML IM ONE (03:40)
[2019-04-05 04:12] LABS: ARTERIAL BLD GAS O2 SATURATION 87.5 % (95-98); ARTERIAL BLOOD GAS BASE EXCESS 11.2 meq/l (-2-2)
[2019-04-05 04:13] LABS: ALLENS TEST POSITIVE
[2019-04-05 04:14] LABS: ARTERIAL BLOOD GAS PCO2 80.2 mmHg (35-45); ARTERIAL BLOOD GAS PO2 58.9 mmHg (80-105); ARTERIAL BLOOD GAS pH 7.32 (7.35-7.45)
[2019-04-05] MEDS: INSULIN SLIDING SCALE (NOVOLOG) 1 VIAL SQ SCH ×2 (06:05→12:11)
[2019-04-05] MEDS: GABAPENTIN 100 MG CAPSULE (FP) PO SCH ×4 (06:13→21:32)
[2019-04-05 06:47] LABS: BASO % 0.1 % (0-2.0); HEMOGLOBIN 13.5 GM/dL (11.7-16.9); LYMPH % 3.9 % (8-40); MCH 27.8 pg (25.7-33.7); MCHC 30.6 g/dl (32.0-35.9); MEAN CELL VOLUME 90.9 fl (80-96); MEAN PLT VOLUME 7.3 fl (7.5-11.1); MONO % 0.4 % (3.8-10.2); NEUT % 95.6 % (42.8-82.8); PLATELET COUNT 246 K/MM3 (134-434); RBC 4.84 M/mm3 (4.00-5.60); RDW 16.9 % (11.9-15.9); WHITE BLOOD COUNT 11.3 K/mm3 (4.0-10.0)
[2019-04-05] MEDS ORDERED: INSULIN SLIDING SCALE (NOVOLOG) 1 VIAL SQ SCH (07:00)
[2019-04-05 07:38] LABS: ALBUMIN 3.2 g/dl (3.4-5.0); BILIRUBIN,TOTAL 0.4 mg/dL (0.2-1); BLOOD UREA NITROGEN 25.3 mg/dL (7-18); CALCIUM 8.7 mg/dL (8.5-10.1); CREATININE 0.8 mg/dL (0.55-1.3); MAGNESIUM 2.5 mg/dL (1.8-2.4); PHOSPHOROUS 4.4 mg/dL (2.5-4.9); POTASSIUM 5.6 mmol/L (3.5-5.1); TOT PROT 6.8 g/dl (6.4-8.2)
[2019-04-05] MEDS: ALBUTEROL SO4 2.5/IPRATROPIUM 0.5 INH SOL 3 ML VIAL.NEB. NEB SCH ×4 (08:30→21:27)
--- NOTE | 2019-04-05 08:33 | EKG ---
Test Reason : Blood Pressure : / mmHG Vent. Rate : 091 BPM Atrial Rate : 091 BPM P-R Int : 156 ms QRS Dur : 086 ms QT Int : 356 ms P-R-T Axes : 062 071 041 degrees QTc Int : 437 ms NORMAL SINUS RHYTHM NORMAL ECG WHEN COMPARED WITH ECG OF 30-APR-2018 09:08, NONSPECIFIC T WAVE ABNORMALITY HAS REPLACED INVERTED T WAVES IN INFERIOR LEADS Confirmed by PRECIOUS LAST, DEXTER ([id number]) on 04/05/2019 8:32:51 AM Referred By: Confirmed By:DEXTER LANG MD
[2019-04-05] MEDS ORDERED: DEXTROSE 5%-WATER - 50 ML IVPB ONE (09:06)
[2019-04-05] MEDS ORDERED: PT OWN MED DRAWER 7, Y5N ONE ×2 (09:06→21:31)
[2019-04-05] MEDS ORDERED: cefTRIAXone SODIUM 1 GM VIAL ONE (09:06)
[2019-04-05] MEDS: ENOXAPARIN NA (PORCINE) 40 MG/0.4 ML DISP.SYRIN SQ SCH (09:12)
[2019-04-05] MEDS: ESCITALOPRAM OXALATE 20 MG TABLET (FP) PO SCH ×2 (09:12→14:00)
[2019-04-05] MEDS: CEFTRIAXONE 1 GM in DEXTROSE 5%-WATER - 50 ML IVPB SCH (09:13)
[2019-04-05] MEDS: metoPROLOL SUCCINATE 25 MG TAB.SR.24H (FP) PO SCH ×2 (09:13→14:00)
[2019-04-05] MEDS: RANITIDINE HCL 150 MG TABLET (FP) PO SCH ×3 (09:13→21:32)
[2019-04-05] MEDS: AZITHROMYCIN IVPB 250 MG in DEXTROSE 5%-WATER - 250 ML IVPB SCH (09:14)
[2019-04-05] MEDS ORDERED: methylPREDNISolone NA SUCC 40 MG/1 ML VIAL IVPUSH SCH (10:00)
[2019-04-05] MEDS ORDERED: PNEUMOCOCCAL 23 VACCINE 0.5 ML VIAL IM ONE (10:00)
[2019-04-05] MEDS ORDERED: VALSARTAN 160 MG TABLET (UD) PO SCH (10:00)
[2019-04-05 10:57] LABS: ANISOCYTOSIS 2+; MACROCYTOSIS 1+; PLATELET ESTIMATE NORMAL; TARGET CELLS 1+; TEAR DROP CELLS 1+
--- NOTE | 2019-04-05 11:05 | PN ---
Progress Note (short form) - Note Progress Note: on BIPAP sedated received Haldol IM early AM He opens his eyes when called Vital Signs - 24 hr 04/04/19 04/04/19 04/04/19 17:30 18:00 19:55 Temperature 98.6 F Pulse Rate 88 Pulse Rate [ Apical] Respiratory 22 H Rate Blood Pressure 92/51 L Blood Pressure [Left Arm] O2 Sat by Pulse 93 L 94 L 96 Oximetry (%) 04/04/19 04/04/19 04/04/19 20:54 21:15 21:50 Temperature Pulse Rate Pulse Rate [ 86 Apical] Respiratory 22 H 18 Rate Blood Pressure Blood Pressure 105/77 [Left Arm] O2 Sat by Pulse 95 91 L Oximetry (%) 04/04/19 04/05/19 04/05/19 22:20 00:10 01:06 Temperature Pulse Rate 80 Pulse Rate [ 80 Apical] Respiratory 24 H Rate Blood Pressure Blood Pressure 102/64 [Left Arm] O2 Sat by Pulse 93 L 90 L 92 L Oximetry (%) 04/05/19 04/05/19 04/05/19 01:43 02:00 04:00 Temperature 97.6 F 97.6 F Pulse Rate 84 84 95 H Pulse Rate [ Apical] Respiratory 22 H 22 H 16 Rate Blood Pressure 131/92 131/92 121/92 Blood Pressure [Left Arm] O2 Sat by Pulse Oximetry (%) 04/05/19 04/05/19 06:00 09:00 Temperature 97.8 F Pulse Rate 88 Pulse Rate [ Apical] Respiratory 17 Rate Blood Pressure 121/78 Blood Pressure [Left Arm] O2 Sat by Pulse 92 L Oximetry (%) Current Medications Generic Name Dose Route Start Last Admin Trade Name Freq PRN Reason Stop Dose Admin Albuterol Sulfate 1 amp 04/05/19 01:21 04/05/19 01:56 Ventolin 0.083% Nebulizer Soln - NEB 1 amp Q4H PRN Administration SHORT OF BREATH/WHEEZING Albuterol/Ipratropium 1 amp 04/05/19 08:00 04/05/19 08:30 Duoneb - NEB 1 amp RQID [facility] Administration Enoxaparin Sodium 40 mg 04/05/19 10:00 04/05/19 09:12 Lovenox - SQ 40 mg DAILY [facility] Administration Escitalopram Oxalate 20 mg 04/05/19 10:00 04/05/19 09:12 Lexapro - PO Not Given DAILY [facility] Gabapentin 100 mg 04/05/19 06:00 04/05/19 06:37 Neurontin - PO Not Given TID [facility] Azithromycin 250 mg/ Dextrose 250 mls @ 250 mls/hr 04/05/19 10:00 04/05/19 09 :14 IVPB 04/08/19 10:59 250 mls/hr DAILY [facility] Administration Ceftriaxone Sodium 1 gm/ 50 mls @ 100 mls/hr 04/05/19 10:00 04/05/19 09:13 Dextrose IVPB 100 mls/hr DAILY [facility] Administration Protocol Insulin Aspart 1 vial 04/05/19 07:00 04/05/19 06:05 Novolog Vial Sliding Scale - SQ Not Given ACHS [facility] Protocol Methylprednisolone Sodium Succinate 40 mg 04/05/19 10:00 04/05/19 09:13 Solu-Medrol - IVPUSH 40 mg BID [facility] Administration Metoprolol Succinate 25 mg 04/05/19 10:00 04/05/19 09:13 Toprol Xl - PO Not Given DAILY [facility] Ranitidine HCl 150 mg 04/05/19 10:00 04/05/19 09:13 Zantac - PO Not Given BID [facility] Laboratory Results - last 24 hr 04/04/19 04/04/19 04/04/19 19:05 19:17 19:17 WBC 11.4 H RBC 4.70 Hgb 13.2 Hct 42.5 MCV 90.4 MCH 28.2 MCHC 31.2 L RDW 17.1 H Plt Count 273 D MPV 6.9 L D Absolute Neuts (auto) 9.4 H Neutrophils % 82.5 Lymphocytes % 10.4 D Monocytes % 5.5 Eosinophils % 0.9 D Basophils % 0.7 D Nucleated RBC % 0 PT with INR INR PTT (Actin FS) Anticoagulation Therapy No Result Required. Puncture Site Right radial ABG pH 7.28 L ABG pCO2 at Pt Temp 94.0 H* ABG pO2 at Pt Temp 67.8 L ABG HCO3 42.7 H ABG O2 Sat (Measured) 91.0 L ABG O2 Content 16.9 ABG Base Excess 11.9 H Neto Test Positive Carboxyhemoglobin 2.6 H Methemoglobin 0.5 O2 Delivery Device N/c Oxygen Flow Rate 4 lpm Vent Mode No Result Required. Vent Rate No Result Required. Mechanical Rate No Result Required. Pressure Support Vent No Result Required. Sodium 140 Potassium 5.3 H Chloride 95 L Carbon Dioxide 43 H Anion Gap 2 L BUN 20.8 H Creatinine 0.8 Est GFR (CKD-EPI)AfAm 117.38 Est GFR (CKD-EPI)NonAf 101.27 POC Glucometer Random Glucose 104 Hemoglobin A1c % Lactic Acid Calcium 8.5 Phosphorus Magnesium 2.5 H Total Bilirubin 0.4 AST 18 ALT 17 Alkaline Phosphatase 84 Troponin I < 0.02 B-Natriuretic Peptide Total Protein 6.5 Albumin 3.2 L 04/04/19 04/04/19 04/04/19 19:55 19:55 19:55 WBC RBC Hgb Hct MCV MCH MCHC RDW Plt Count MPV Absolute Neuts (auto) Neutrophils % Lymphocytes % Monocytes % Eosinophils % Basophils % Nucleated RBC % PT with INR 12.80 INR 1.08 PTT (Actin FS) 36.9 H Anticoagulation Therapy Puncture Site ABG pH ABG pCO2 at Pt Temp ABG pO2 at Pt Temp ABG HCO3 ABG O2 Sat (Measured) ABG O2 Content ABG Base Excess Neto Test Carboxyhemoglobin Methemoglobin O2 Delivery Device Oxygen Flow Rate Vent Mode Vent Rate Mechanical Rate Pressure Support Vent Sodium Potassium Chloride Carbon Dioxide Anion Gap BUN Creatinine Est GFR (CKD-EPI)AfAm Est GFR (CKD-EPI)NonAf POC Glucometer Random Glucose Hemoglobin A1c % Lactic Acid 0.6 Calcium Phosphorus Magnesium Total Bilirubin AST ALT Alkaline Phosphatase Troponin I B-Natriuretic Peptide 713.0 H Total Protein Albumin 04/04/19 04/04/19 04/05/19 21:09 23:00 02:13 WBC RBC Hgb Hct MCV MCH MCHC RDW Plt Count MPV Absolute Neuts (auto) Neutrophils % Lymphocytes % Monocytes % Eosinophils % Basophils % Nucleated RBC % PT with INR INR PTT (Actin FS) Anticoagulation Therapy No Result Required. No Result Required. Puncture Site No Result Required. Left radial ABG pH 7.26 L 7.30 L ABG pCO2 at Pt Temp 100 H* 84.0 H* ABG pO2 at Pt Temp 73.5 L 64.8 L ABG HCO3 43.2 H 40.5 H ABG O2 Sat (Measured) 92.5 L 90.6 L ABG O2 Content 17.0 16.9 ABG Base Excess 11.8 H 10.7 H Neto Test No Result Required. No Result Required. Carboxyhemoglobin 2.5 H 2.6 H Methemoglobin 0.5 0.6 O2 Delivery Device No Result Required. Bipap Oxygen Flow Rate No Result Required. 35% Vent Mode No Result Required. S/t Vent Rate No Result Required. 22 Mechanical Rate No Result Required. No Result Required. Pressure Support Vent No Result Required. 18/10 Sodium Potassium Chloride Carbon Dioxide Anion Gap BUN Creatinine Est GFR (CKD-EPI)AfAm Est GFR (CKD-EPI)NonAf POC Glucometer 130 Random Glucose Hemoglobin A1c % Lactic Acid Calcium Phosphorus Magnesium Total Bilirubin AST ALT Alkaline Phosphatase Troponin I B-Natriuretic Peptide Total Protein Albumin 04/05/19 04/05/19 04/05/19 04:00 05:58 05:58 WBC 11.3 H RBC 4.84 Hgb 13.5 Hct 44.0 MCV 90.9 MCH 27.8 MCHC 30.6 L RDW 16.9 H Plt Count 246 MPV 7.3 L Absolute Neuts (auto) 10.8 H Neutrophils % 95.6 H Lymphocytes % 3.9 L D Monocytes % 0.4 L D Eosinophils % 0.0 D Basophils % 0.1 Nucleated RBC % 0 PT with INR INR PTT (Actin FS) Anticoagulation Therapy Puncture Site Right radial ABG pH 7.32 L ABG pCO2 at Pt Temp 80.2 H* ABG pO2 at Pt Temp 58.9 L ABG HCO3 40.6 H ABG O2 Sat (Measured) 87.5 L ABG O2 Content 16.5 ABG Base Excess 11.2 H Neto Test Positive Carboxyhemoglobin Methemoglobin O2 Delivery Device Bipap Oxygen Flow Rate 40% Vent Mode S/t Vent Rate 22 Mechanical Rate Pressure Support Vent 20/10 Sodium 140 Potassium 5.6 H Chloride 96 L Carbon Dioxide 41 H Anion Gap 3 L BUN 25.3 H Creatinine 0.8 Est GFR (CKD-EPI)AfAm 117.38 Est GFR (CKD-EPI)NonAf 101.27 POC Glucometer Random Glucose 126 H Hemoglobin A1c % Lactic Acid Calcium 8.7 Phosphorus 4.4 Magnesium 2.5 H Total Bilirubin 0.4 AST 6 L ALT 15 Alkaline Phosphatase 90 Troponin I B-Natriuretic Peptide Total Protein 6.8 Albumin 3.2 L 04/05/19 04/05/19 05:58 06:03 WBC RBC Hgb Hct MCV MCH MCHC RDW Plt Count MPV Absolute Neuts (auto) Neutrophils % Lymphocytes % Monocytes % Eosinophils % Basophils % Nucleated RBC % PT with INR INR PTT (Actin FS) Anticoagulation Therapy Puncture Site ABG pH ABG pCO2 at Pt Temp ABG pO2 at Pt Temp ABG HCO3 ABG O2 Sat (Measured) ABG O2 Content ABG Base Excess Neto Test Carboxyhemoglobin Methemoglobin O2 Delivery Device Oxygen Flow Rate Vent Mode Vent Rate Mechanical Rate Pressure Support Vent Sodium Potassium Chloride Carbon Dioxide Anion Gap BUN Creatinine Est GFR (CKD-EPI)AfAm Est GFR (CKD-EPI)NonAf POC Glucometer 144 Random Glucose Hemoglobin A1c % 5.6 Lactic Acid Calcium Phosphorus Magnesium Total Bilirubin AST ALT Alkaline Phosphatase Troponin I B-Natriuretic Peptide Total Protein Albumin S1 S2 RRR Lungs decreased Abd- soft, obese, NT trace edema PLAN On BIPAP ABG noted empiric antibiotics Spoke with Critical care team avoid sedatives Problem List - Problems (1) Acute respiratory failure with hypoxia and hypercarbia Code(s): J96.01 - ACUTE RESPIRATORY FAILURE WITH HYPOXIA; J96.02 - ACUTE RESPIRATORY FAILURE WITH HYPERCAPNIA (2) COPD exacerbation Code(s): J44.1 - CHRONIC OBSTRUCTIVE PULMONARY DISEASE W (ACUTE) EXACERBATION (3) Acute on chronic respiratory failure with hypoxia and hypercapnia Code(s): J96.21 - ACUTE AND CHRONIC RESPIRATORY FAILURE WITH HYPOXIA; J96.22 - ACUTE AND CHRONIC RESPIRATORY FAILURE WITH HYPERCAPNIA (4) Pulmonary HTN Code(s): I27.20 - PULMONARY HYPERTENSION, UNSPECIFIED (5) Morbid obesity Code(s): E66.01 - MORBID (SEVERE) OBESITY DUE TO EXCESS CALORIES (6) Sleep apnea Code(s): G47.30 - SLEEP APNEA, UNSPECIFIED Qualifiers: Sleep apnea type: obstructive Qualified Code(s): G47.33 - Obstructive sleep apnea (adult) (pediatric)
--- NOTE | 2019-04-05 11:38 | PN ---
Teaching Attending Note Name of Resident: Tera Grimm ATTENDING PHYSICIAN STATEMENT I saw and evaluated the patient. I reviewed the resident's note and discussed the case with the resident. I agree with the resident's findings and plan as documented. SUBJECTIVE: Pt seen and examined in the ICU. Lethargic but arousable on BiPAP. Received haldol overnight. OBJECTIVE: Vital Signs Period Temp Pulse Resp BP Sys/Melgoza Pulse Ox Last 24 Hr 97.6 F-98.6 F 80-95 16-24 92-131/51-92 90-96 Intake & Output 04/02/19 04/03/19 04/04/19 04/05/19 23:59 23:59 23:59 23:59 Intake Total 50 Balance 50 Weight 183.705 kg 183.705 kg Gen: lethargic but arousable Heart: RRR Lung: scattered rhonchi, wheezes Abd: soft, nontender Ext: no edema CBC, BMP 04/05/19 05:58 04/05/19 05:58 Active Medications Albuterol Sulfate (Ventolin 0.083% Nebulizer Soln -) 1 amp NEB Q4H PRN PRN Reason: SHORT OF BREATH/WHEEZING Last Admin: 04/05/19 01:56 Dose: 1 amp Albuterol/Ipratropium (Duoneb -) 1 amp NEB RQID [facility] Last Admin: 04/05/19 08:30 Dose: 1 amp Enoxaparin Sodium (Lovenox -) 40 mg SQ DAILY [facility] Last Admin: 04/05/19 09:12 Dose: 40 mg Escitalopram Oxalate (Lexapro -) 20 mg PO DAILY [facility] Last Admin: 04/05/19 09:12 Dose: Not Given Gabapentin (Neurontin -) 100 mg PO TID [facility] Last Admin: 04/05/19 06:37 Dose: Not Given Azithromycin 250 mg/ Dextrose 250 mls @ 250 mls/hr IVPB DAILY [facility] Stop: 04/08/19 10:59 Last Admin: 04/05/19 09:14 Dose: 250 mls/hr Ceftriaxone Sodium 1 gm/ (Dextrose) 50 mls @ 100 mls/hr IVPB DAILY [facility]; Protocol Last Admin: 04/05/19 09:13 Dose: 100 mls/hr Insulin Aspart (Novolog Vial Sliding Scale -) 1 vial SQ ACHS [facility]; Protocol Last Admin: 04/05/19 06:05 Dose: Not Given Methylprednisolone Sodium Succinate (Solu-Medrol -) 60 mg IVPUSH Q8H-IV [facility] Metoprolol Succinate (Toprol Xl -) 25 mg PO DAILY [facility] Last Admin: 04/05/19 09:13 Dose: Not Given Ranitidine HCl (Zantac -) 150 mg PO BID [facility] Last Admin: 04/05/19 09:13 Dose: Not Given ASSESSMENT AND PLAN: Acute on Chronic Hypoxic and Hypercapneic Respiratory Failure Acute COPD Exacerbation RANJIT/OHS r/o Pneumonia HTN DM - continue medrol - inhaled bronchodilators standing and PRN - O2 to keep SpO2 88-92% - BiPAP to assist in work of breathing, hypercapnea - monitor ABG - continue empiric antibiotics - f/u cultures - minimize sedation - NPO while on BiPAP - DVT/GI prophylaxis - continue ICU monitoring critical care time spent in reviewing chart, evaluating patient and formulating plan 35 min
--- NOTE | 2019-04-05 11:40 | PN ---
Physical Exam: SUBJECTIVE: Overnight, patient was admitted to ICU for hypercapneic respiratory failure and was agitated so received Haldol. Patient seen and examined at the bedside. Patient was sleeping and arousable but tired and feel asleep after brief questioning likely due to respiratory failure and haldol. Denied shortness of breath or chest pain. OBJECTIVE: Vital Signs Period Temp Pulse Resp BP Sys/Melgoza Pulse Ox Last 24 Hr 97.6 F-98.6 F 80-95 16-24 92-131/51-92 90-96 GENERAL: The patient is arousable to voice and light touch but falls asleep. No apparent distress HEAD: Normal with no signs of trauma. EYES: PERRL, extraocular movements intact, sclera anicteric, conjunctiva clear. NECK: Trachea midline, full range of motion, supple. LUNGS: Bilateral wheezes heard, decreased lungs sounds at the bases. HEART: Regular rate and rhythm, S1, S2 without murmur, rub or gallop. ABDOMEN: Obese abdomen, soft, nontender. No guarding, rigidity. EXTREMITIES: 1+ pulses, warm, well-perfused, no edema. NEUROLOGICAL: Not assessed. SKIN: Warm, dry, normal turgor, no rashes or lesions noted Laboratory Results - last 24 hr 04/04/19 04/04/19 04/04/19 19:05 19:17 19:17 WBC 11.4 H RBC 4.70 Hgb 13.2 Hct 42.5 MCV 90.4 MCH 28.2 MCHC 31.2 L RDW 17.1 H Plt Count 273 D MPV 6.9 L D Absolute Neuts (auto) 9.4 H Neutrophils % 82.5 Lymphocytes % 10.4 D Monocytes % 5.5 Eosinophils % 0.9 D Basophils % 0.7 D Nucleated RBC % 0 PT with INR INR PTT (Actin FS) Anticoagulation Therapy No Result Required. Puncture Site Right radial ABG pH 7.28 L ABG pCO2 at Pt Temp 94.0 H* ABG pO2 at Pt Temp 67.8 L ABG HCO3 42.7 H ABG O2 Sat (Measured) 91.0 L ABG O2 Content 16.9 ABG Base Excess 11.9 H Neto Test Positive Carboxyhemoglobin 2.6 H Methemoglobin 0.5 O2 Delivery Device N/c Oxygen Flow Rate 4 lpm Vent Mode No Result Required. Vent Rate No Result Required. Mechanical Rate No Result Required. Pressure Support Vent No Result Required. Sodium 140 Potassium 5.3 H Chloride 95 L Carbon Dioxide 43 H Anion Gap 2 L BUN 20.8 H Creatinine 0.8 Est GFR (CKD-EPI)AfAm 117.38 Est GFR (CKD-EPI)NonAf 101.27 POC Glucometer Random Glucose 104 Hemoglobin A1c % Lactic Acid Calcium 8.5 Phosphorus Magnesium 2.5 H Total Bilirubin 0.4 AST 18 ALT 17 Alkaline Phosphatase 84 Troponin I < 0.02 B-Natriuretic Peptide Total Protein 6.5 Albumin 3.2 L 04/04/19 04/04/19 04/04/19 19:55 19:55 19:55 WBC RBC Hgb Hct MCV MCH MCHC RDW Plt Count MPV Absolute Neuts (auto) Neutrophils % Lymphocytes % Monocytes % Eosinophils % Basophils % Nucleated RBC % PT with INR 12.80 INR 1.08 PTT (Actin FS) 36.9 H Anticoagulation Therapy Puncture Site ABG pH ABG pCO2 at Pt Temp ABG pO2 at Pt Temp ABG HCO3 ABG O2 Sat (Measured) ABG O2 Content ABG Base Excess Neto Test Carboxyhemoglobin Methemoglobin O2 Delivery Device Oxygen Flow Rate Vent Mode Vent Rate Mechanical Rate Pressure Support Vent Sodium Potassium Chloride Carbon Dioxide Anion Gap BUN Creatinine Est GFR (CKD-EPI)AfAm Est GFR (CKD-EPI)NonAf POC Glucometer Random Glucose Hemoglobin A1c % Lactic Acid 0.6 Calcium Phosphorus Magnesium Total Bilirubin AST ALT Alkaline Phosphatase Troponin I B-Natriuretic Peptide 713.0 H Total Protein Albumin 04/04/19 04/04/19 04/05/19 21:09 23:00 02:13 WBC RBC Hgb Hct MCV MCH MCHC RDW Plt Count MPV Absolute Neuts (auto) Neutrophils % Lymphocytes % Monocytes % Eosinophils % Basophils % Nucleated RBC % PT with INR INR PTT (Actin FS) Anticoagulation Therapy No Result Required. No Result Required. Puncture Site No Result Required. Left radial ABG pH 7.26 L 7.30 L ABG pCO2 at Pt Temp 100 H* 84.0 H* ABG pO2 at Pt Temp 73.5 L 64.8 L ABG HCO3 43.2 H 40.5 H ABG O2 Sat (Measured) 92.5 L 90.6 L ABG O2 Content 17.0 16.9 ABG Base Excess 11.8 H 10.7 H Neto Test No Result Required. No Result Required. Carboxyhemoglobin 2.5 H 2.6 H Methemoglobin 0.5 0.6 O2 Delivery Device No Result Required. Bipap Oxygen Flow Rate No Result Required. 35% Vent Mode No Result Required. S/t Vent Rate No Result Required. 22 Mechanical Rate No Result Required. No Result Required. Pressure Support Vent No Result Required. 18/10 Sodium Potassium Chloride Carbon Dioxide Anion Gap BUN Creatinine Est GFR (CKD-EPI)AfAm Est GFR (CKD-EPI)NonAf POC Glucometer 130 Random Glucose Hemoglobin A1c % Lactic Acid Calcium Phosphorus Magnesium Total Bilirubin AST ALT Alkaline Phosphatase Troponin I B-Natriuretic Peptide Total Protein Albumin 04/05/19 04/05/19 04/05/19 04:00 05:58 05:58 WBC 11.3 H RBC 4.84 Hgb 13.5 Hct 44.0 MCV 90.9 MCH 27.8 MCHC 30.6 L RDW 16.9 H Plt Count 246 MPV 7.3 L Absolute Neuts (auto) 10.8 H Neutrophils % 95.6 H Lymphocytes % 3.9 L D Monocytes % 0.4 L D Eosinophils % 0.0 D Basophils % 0.1 Nucleated RBC % 0 PT with INR INR PTT (Actin FS) Anticoagulation Therapy Puncture Site Right radial ABG pH 7.32 L ABG pCO2 at Pt Temp 80.2 H* ABG pO2 at Pt Temp 58.9 L ABG HCO3 40.6 H ABG O2 Sat (Measured) 87.5 L ABG O2 Content 16.5 ABG Base Excess 11.2 H Neto Test Positive Carboxyhemoglobin Methemoglobin O2 Delivery Device Bipap Oxygen Flow Rate 40% Vent Mode S/t Vent Rate 22 Mechanical Rate Pressure Support Vent 20/10 Sodium 140 Potassium 5.6 H Chloride 96 L Carbon Dioxide 41 H Anion Gap 3 L BUN 25.3 H Creatinine 0.8 Est GFR (CKD-EPI)AfAm 117.38 Est GFR (CKD-EPI)NonAf 101.27 POC Glucometer Random Glucose 126 H Hemoglobin A1c % Lactic Acid Calcium 8.7 Phosphorus 4.4 Magnesium 2.5 H Total Bilirubin 0.4 AST 6 L ALT 15 Alkaline Phosphatase 90 Troponin I B-Natriuretic Peptide Total Protein 6.8 Albumin 3.2 L 04/05/19 04/05/19 05:58 06:03 WBC RBC Hgb Hct MCV MCH MCHC RDW Plt Count MPV Absolute Neuts (auto) Neutrophils % Lymphocytes % Monocytes % Eosinophils % Basophils % Nucleated RBC % PT with INR INR PTT (Actin FS) Anticoagulation Therapy Puncture Site ABG pH ABG pCO2 at Pt Temp ABG pO2 at Pt Temp ABG HCO3 ABG O2 Sat (Measured) ABG O2 Content ABG Base Excess Neto Test Carboxyhemoglobin Methemoglobin O2 Delivery Device Oxygen Flow Rate Vent Mode Vent Rate Mechanical Rate Pressure Support Vent Sodium Potassium Chloride Carbon Dioxide Anion Gap BUN Creatinine Est GFR (CKD-EPI)AfAm Est GFR (CKD-EPI)NonAf POC Glucometer 144 Random Glucose Hemoglobin A1c % 5.6 Lactic Acid Calcium Phosphorus Magnesium Total Bilirubin AST ALT Alkaline Phosphatase Troponin I B-Natriuretic Peptide Total Protein Albumin Active Medications Generic Name Dose Route Start Last Admin Trade Name Freq PRN Reason Stop Dose Admin Albuterol Sulfate 1 amp 04/05/19 01:21 04/05/19 01:56 Ventolin 0.083% Nebulizer Soln - NEB 1 amp Q4H PRN Administration SHORT OF BREATH/WHEEZING Albuterol/Ipratropium 1 amp 04/05/19 08:00 04/05/19 08:30 Duoneb - NEB 1 amp RQID [facility] Administration Enoxaparin Sodium 40 mg 04/05/19 10:00 04/05/19 09:12 Lovenox - SQ 40 mg DAILY [facility] Administration Escitalopram Oxalate 20 mg 04/05/19 10:00 04/05/19 09:12 Lexapro - PO Not Given DAILY [facility] Gabapentin 100 mg 04/05/19 06:00 04/05/19 06:37 Neurontin - PO Not Given TID [facility] Azithromycin 250 mg/ Dextrose 250 mls @ 250 mls/hr 04/05/19 10:00 04/05/19 09 :14 IVPB 04/08/19 10:59 250 mls/hr DAILY [facility] Administration Ceftriaxone Sodium 1 gm/ 50 mls @ 100 mls/hr 04/05/19 10:00 04/05/19 09:13 Dextrose IVPB 100 mls/hr DAILY [facility] Administration Protocol Insulin Aspart 1 vial 04/05/19 07:00 04/05/19 06:05 Novolog Vial Sliding Scale - SQ Not Given ACHS [facility] Protocol Methylprednisolone Sodium Succinate 60 mg 04/05/19 18:00 Solu-Medrol - IVPUSH Q8H-IV [facility] Metoprolol Succinate 25 mg 04/05/19 10:00 04/05/19 09:13 Toprol Xl - PO Not Given DAILY [facility] Ranitidine HCl 150 mg 04/05/19 10:00 04/05/19 09:13 Zantac - PO Not Given BID [facility] ASSESSMENT/PLAN: Satya Rosario is a 53 year old male with a PMHx of COPD, OHS, RANJIT, obesity, HTN who was admitted to the ICU after developing acute on chronic hypercapneic respiratory failure in the setting of his chronic diseases, non compliance with CPAP, and 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 Acute on chronic hypercapneic respiratory failure Obesity hypoventilation syndrome Morbid obesity Obstructive sleep apnea Hypertension COPD NEUROLOGIC - somnolent likely due to his respiratory failure and haldol - haldol given once due to agitation and pulling at BiPAP - continue to monitor neurologic status, if decompensating may need to intubate from continued decompensating respiratory status - continue home gabapentin CARDIOLOGY - holding valsartan due to elevated potassium - continue home metoprolol 25mg daily - continue to monitor hemodynamics RESPIRATORY - on BiPAP, settings IPAP 20 EPAP 12 rate 22 O2 50 - ABG improving, pH 7.28-->7.30-->7.32, retaining CO2 latest 80.2 - acute on chronic respiratory failure with metabolic alkalosis - increase Solumedrol to 60mg q8h IV - continue Duonebs q4h prn - ABG in AM - continue antiobiotics for presumed PNA RENAL - stable GASTROINTESTINAL - continue home ranitidine 150mg bid GENITOURINARY - stable INFECTIOUS DISEASE - continue on ceftriaxone and azithromycin for presumed CAP - Legionella and strep pneumo urinary antigens ordered ENDOCRINE - stable HEMATOLOGY - stable MUSCULOSKELETAL - no acute issues PSYCHIATRY - continue home Lexapro F/E/N - no fluids - hyperkalemia, valsartan held, cardiac status with no acute issues, continue to monitor, can start Kayexelate if continue to rise - NPO while on BiPAP LINES - R forearm placed 04/05 - R hand placed 04/05 PROPHYLAXIS - Lovenox 40mg subq daily CODE - full code DISPO - continue to monitor in ICU CASE DISCUSSED WITH DR. LOPEZ AND PRIMARY TEAM RADHA CAZARES DO - PGY-1 INTERNAL MEDICINE Problem List - Problems (1) Acute on chronic respiratory failure with hypoxia and hypercapnia Code(s): J96.21 - ACUTE AND CHRONIC RESPIRATORY FAILURE WITH HYPOXIA; J96.22 - ACUTE AND CHRONIC RESPIRATORY FAILURE WITH HYPERCAPNIA (2) Obesity hypoventilation syndrome Code(s): E66.2 - MORBID (SEVERE) OBESITY WITH ALVEOLAR HYPOVENTILATION (3) Morbid obesity Code(s): E66.01 - MORBID (SEVERE) OBESITY DUE TO EXCESS CALORIES (4) Sleep apnea Code(s): G47.30 - SLEEP APNEA, UNSPECIFIED Qualifiers: Sleep apnea type: obstructive Qualified Code(s): G47.33 - Obstructive sleep apnea (adult) (pediatric) Visit type - Emergency Visit Emergency Visit: No - New Patient This patient is new to me today: Yes Date on this admission: 04/05/19 - Critical Care Critical Care patient: Yes Total Critical Care Time (in minutes): 35 Critical Care Statement: The care of this patient involved high complexity decision making to prevent further life threatening deterioration of the patient 's condition and/or to evaluate & treat vital organ system(s) failure or risk of failure. ATTENDING PHYSICIAN STATEMENT I saw and evaluated the patient. I reviewed the resident's note and discussed the case with the resident. I agree with the resident's findings and plan as documented. SUBJECTIVE: OBJECTIVE: ASSESSMENT AND PLAN:
--- NOTE | 2019-04-05 15:34 | ECHO ---
Name: GRACE FRANCIS Exam:Adult Echocardiogram Study Date: 04/05/2019 08:01 AM Age: 53 yrs Reason For Study: SOB Height: 70 in Weight: 400 lb BSA: 2.8 m2 MMode/2D Measurements & Calculations IVSd: 1.3 cm Ao root diam: 3.2 cm LVIDd: 5.3 cm LA dimension: 2.6 cm LVIDs: 3.1 cm LVPWd: 1.1 cm EDV(Teich): 134.4 ml LVOT diam: 2.0 cm ESV(Teich): 36.6 ml Doppler Measurements & Calculations MV E max gissel: 77.1 cm/sec Ao V2 max: 124.9 cm/sec MV A max gissel: 77.6 cm/sec Ao max P.2 mmHg MV E/A: 0.99 MV dec time: 0.16 sec GERRY(V,D): 2.8 cm2 LV V1 max P.7 mmHg PA V2 max: 84.2 cm/sec LV V1 max: 108.7 cm/sec PA max P.8 mmHg PI Vmax: 61.1 cm/sec Procedure The study was technically difficult with many images being suboptimal in quality. Left Ventricle The left ventricular size, thickness and function are normal. The left ventricle is not well visualiz ed. The left ventricular ejection fraction is normal. Left Ventricular Filling pattern is normal for age. Reg ional wall motion abnormalities cannot be excluded due to limited visualization. Right Ventricle The right ventricle is not well visualized. Atria Normal left and right atrial size and function. Mitral Valve There is mild mitral valve thickening. There is no mitral valve stenosis. There is mild mitral regurg itation. Tricuspid Valve There is mild tricuspid valve thickening. There is no tricuspid stenosis. There was insufficient TR d etected to calculate RV systolic pressure. Aortic Valve The aortic valve is not well visualized. No hemodynamically significant valvular aortic stenosis. No aortic regurgitation is present. Pulmonic Valve The pulmonic valve is not well visualized. Great Vessels The aortic root is normal size. Pericardium/Pleura There is no pericardial effusion. Interpretation Summary The left ventricular size, thickness and function are normal The left ventricle is not well visualized. Regional wall motion abnormalities cannot be excluded due to limited visualization. The right ventricle is not well visualized. The left ventricular ejection fraction is normal. Left Ventricular Filling pattern is normal for age. There was insufficient TR detected to calculate RV systolic pressure. The study was technically difficult with many images being suboptimal in quality. MD Niall Garrido 04/05/2019 03:33 PM
[2019-04-05] MEDS: methylPREDNISolone NA SUCC 40 MG/1 ML VIAL IVPUSH SCH (18:44)
[2019-04-05 21:24] LABS: URINE APPEARANCE CLEAR; URINE BILIRUBIN NEGATIVE (NEGATIVE); URINE COLOR YELLOW; URINE GLUCOSE (UA) NEGATIVE (NEGATIVE); URINE KETONE NEGATIVE (NEGATIVE); URINE LEUK ESTERASE NEGATIVE (NEGATIVE); URINE NITRITE NEGATIVE (NEGATIVE); URINE PROTEIN NEGATIVE (NEGATIVE)
[2019-04-06] MEDS: methylPREDNISolone NA SUCC 40 MG/1 ML VIAL IVPUSH SCH ×3 (02:20→18:02)
[2019-04-06] MEDS: GABAPENTIN 100 MG CAPSULE (FP) PO SCH ×3 (06:19→21:16)
[2019-04-06 06:20] LABS: HEMATOCRIT 43.6 % (35.4-49); HEMOGLOBIN 13.3 GM/dL (11.7-16.9); MCH 27.9 pg (25.7-33.7); MCHC 30.6 g/dl (32.0-35.9); MEAN CELL VOLUME 91.2 fl (80-96); MEAN PLT VOLUME 7.4 fl (7.5-11.1); PLATELET COUNT 282 K/MM3 (134-434); RBC 4.78 M/mm3 (4.00-5.60); RDW 17.2 % (11.9-15.9); WHITE BLOOD COUNT 11.9 K/mm3 (4.0-10.0)
[2019-04-06 06:43] LABS: ALBUMIN 3.3 g/dl (3.4-5.0); BILIRUBIN,TOTAL 0.3 mg/dL (0.2-1); BLOOD UREA NITROGEN 39.2 mg/dL (7-18); CALCIUM 8.9 mg/dL (8.5-10.1); MAGNESIUM 2.8 mg/dL (1.8-2.4); PHOSPHOROUS 5.1 mg/dL (2.5-4.9); POTASSIUM 5.2 mmol/L (3.5-5.1); TOT PROT 6.8 g/dl (6.4-8.2)
[2019-04-06] MEDS: ALBUTEROL SO4 2.5/IPRATROPIUM 0.5 INH SOL 3 ML VIAL.NEB. NEB SCH ×4 (08:00→20:45)
[2019-04-06] MEDS ORDERED: cefTRIAXone SODIUM 1 GM VIAL ONE (08:42)
[2019-04-06] MEDS ORDERED: DEXTROSE 5%-WATER - 50 ML IVPB ONE (08:42)
[2019-04-06] MEDS: CEFTRIAXONE 1 GM in DEXTROSE 5%-WATER - 50 ML IVPB SCH (09:32)
[2019-04-06] MEDS: ENOXAPARIN NA (PORCINE) 40 MG/0.4 ML DISP.SYRIN SQ SCH (09:33)
[2019-04-06] MEDS: metoPROLOL SUCCINATE 25 MG TAB.SR.24H (FP) PO SCH (09:37)
[2019-04-06] MEDS: ESCITALOPRAM OXALATE 20 MG TABLET (FP) PO SCH (09:37)
[2019-04-06] MEDS: RANITIDINE HCL 150 MG TABLET (FP) PO SCH ×2 (09:37→21:16)
--- NOTE | 2019-04-06 11:02 | PN ---
Progress Note (short form) - Note Progress Note: off BIPAP now, was on it at night awake and alert no complaints 04/05/19 04/05/19 04/05/19 12:00 12:30 12:32 Temperature Pulse Rate 83 Respiratory 23 H Rate Blood Pressure 132/74 O2 Sat by Pulse 96 92 L 93 L Oximetry (%) 04/05/19 04/05/19 04/05/19 14:00 16:00 18:33 Temperature 97.8 F 97.6 F Pulse Rate 84 82 94 H Respiratory 23 H 24 H 18 Rate Blood Pressure 114/78 135/76 138/78 O2 Sat by Pulse 96 Oximetry (%) 04/05/19 04/05/19 04/05/19 19:36 20:00 21:52 Temperature 97.6 F Pulse Rate 100 H 91 H Respiratory 18 17 16 Rate Blood Pressure 131/78 145/63 O2 Sat by Pulse 96 Oximetry (%) 04/06/19 04/06/19 04/06/19 00:00 01:09 01:10 Temperature Pulse Rate 79 77 Respiratory 15 Rate Blood Pressure 113/71 O2 Sat by Pulse 94 L 94 L Oximetry (%) 04/06/19 04/06/19 04/06/19 02:00 04:00 06:00 Temperature 97.2 F L 97.6 F Pulse Rate 73 68 71 Respiratory 14 18 20 Rate Blood Pressure 116/72 98/67 110/72 O2 Sat by Pulse Oximetry (%) 04/06/19 04/06/19 04/06/19 08:00 08:22 09:00 Temperature 98.7 F Pulse Rate 78 Respiratory 16 Rate Blood Pressure 115/74 O2 Sat by Pulse 95 95 Oximetry (%) 04/06/19 10:00 Temperature Pulse Rate 90 Respiratory 16 Rate Blood Pressure 97/67 O2 Sat by Pulse Oximetry (%) Current Medications Generic Name Dose Route Start Last Admin Trade Name Freq PRN Reason Stop Dose Admin Albuterol Sulfate 1 amp 04/05/19 01:21 04/05/19 01:56 Ventolin 0.083% Nebulizer Soln - NEB 1 amp Q4H PRN Administration SHORT OF BREATH/WHEEZING Albuterol/Ipratropium 1 amp 04/05/19 08:00 04/06/19 08:00 Duoneb - NEB 1 amp RQID MINDI Administration Enoxaparin Sodium 40 mg 04/05/19 10:00 04/06/19 09:33 Lovenox - SQ 40 mg DAILY MINDI Administration Escitalopram Oxalate 20 mg 04/05/19 10:00 04/06/19 09:37 Lexapro - PO 20 mg DAILY MINDI Administration Gabapentin 100 mg 04/05/19 06:00 04/06/19 06:19 Neurontin - PO 100 mg TID MINDI Administration Azithromycin 250 mg/ Dextrose 250 mls @ 250 mls/hr 04/05/19 10:00 04/05/19 09 :14 IVPB 04/08/19 10:59 250 mls/hr DAILY MINDI Administration Ceftriaxone Sodium 1 gm/ 50 mls @ 100 mls/hr 04/05/19 10:00 04/06/19 09:32 Dextrose IVPB 100 mls/hr DAILY MINDI Administration Protocol Methylprednisolone Sodium Succinate 60 mg 04/05/19 18:00 04/06/19 09:01 Solu-Medrol - IVPUSH 60 mg Q8H-IV MINDI Administration Metoprolol Succinate 25 mg 04/05/19 10:00 04/06/19 09:37 Toprol Xl - PO 25 mg DAILY MINDI Administration Ranitidine HCl 150 mg 04/05/19 10:00 04/06/19 09:37 Zantac - PO 150 mg BID MINDI Administration Laboratory Results - last 24 hr 04/05/19 04/05/19 04/05/19 05:58 12:09 17:00 WBC RBC Hgb Hct MCV MCH MCHC RDW Plt Count MPV Neutrophils % (Manual) 93.0 H Band Neutrophils % 0.0 Lymphocytes % (Manual) 4.6 L D Monocytes % (Manual) 1 L Eosinophils % (Manual) 0.0 Basophils % (Manual) 0.0 Myelocytes % (Man) 0 Promyelocytes % (Man) 0 Blast Cells % (Manual) 0 Metamyelocytes 0 Hypochromia 0 Platelet Estimate Normal Platelet Comment Present Polychromasia 1+ Poikilocytosis 1+ Basophilic Stippling 1+ Anisocytosis 2+ Microcytosis 1+ Macrocytosis 1+ Spherocytes 1+ Target Cells 1+ Tear Drop Cells 1+ Stomatocytes 1+ Sodium Potassium Chloride Carbon Dioxide Anion Gap BUN Creatinine Est GFR (CKD-EPI)AfAm Est GFR (CKD-EPI)NonAf POC Glucometer 142 126 Random Glucose Calcium Phosphorus Magnesium Total Bilirubin AST ALT Alkaline Phosphatase Total Protein Albumin Urine Color Urine Appearance Urine pH Ur Specific [place] Urine Protein Urine Glucose (UA) Urine Ketones Urine Blood Urine Nitrite Urine Bilirubin Urine Urobilinogen Ur Leukocyte Esterase 04/05/19 04/05/19 04/06/19 20:00 21:28 05:15 WBC 11.9 H RBC 4.78 Hgb 13.3 Hct 43.6 MCV 91.2 MCH 27.9 MCHC 30.6 L RDW 17.2 H Plt Count 282 MPV 7.4 L Neutrophils % (Manual) Band Neutrophils % Lymphocytes % (Manual) Monocytes % (Manual) Eosinophils % (Manual) Basophils % (Manual) Myelocytes % (Man) Promyelocytes % (Man) Blast Cells % (Manual) Metamyelocytes Hypochromia Platelet Estimate Platelet Comment Polychromasia Poikilocytosis Basophilic Stippling Anisocytosis Microcytosis Macrocytosis Spherocytes Target Cells Tear Drop Cells Stomatocytes Sodium Potassium Chloride Carbon Dioxide Anion Gap BUN Creatinine Est GFR (CKD-EPI)AfAm Est GFR (CKD-EPI)NonAf POC Glucometer 149 Random Glucose Calcium Phosphorus Magnesium Total Bilirubin AST ALT Alkaline Phosphatase Total Protein Albumin Urine Color Yellow Urine Appearance Clear Urine pH 5.0 Ur Specific [place] 1.024 Urine Protein Negative Urine Glucose (UA) Negative Urine Ketones Negative Urine Blood Negative Urine Nitrite Negative Urine Bilirubin Negative Urine Urobilinogen 1.0 Ur Leukocyte Esterase Negative 04/06/19 05:15 WBC RBC Hgb Hct MCV MCH MCHC RDW Plt Count MPV Neutrophils % (Manual) Band Neutrophils % Lymphocytes % (Manual) Monocytes % (Manual) Eosinophils % (Manual) Basophils % (Manual) Myelocytes % (Man) Promyelocytes % (Man) Blast Cells % (Manual) Metamyelocytes Hypochromia Platelet Estimate Platelet Comment Polychromasia Poikilocytosis Basophilic Stippling Anisocytosis Microcytosis Macrocytosis Spherocytes Target Cells Tear Drop Cells Stomatocytes Sodium 138 Potassium 5.2 H Chloride 94 L Carbon Dioxide 43 H Anion Gap 1 L BUN 39.2 H Creatinine 1.0 Est GFR (CKD-EPI)AfAm 98.46 Est GFR (CKD-EPI)NonAf 84.95 POC Glucometer Random Glucose 127 H Calcium 8.9 Phosphorus 5.1 H Magnesium 2.8 H Total Bilirubin 0.3 AST 4 L ALT 12 L Alkaline Phosphatase 82 Total Protein 6.8 Albumin 3.3 L Urine Color Urine Appearance Urine pH Ur Specific [place] Urine Protein Urine Glucose (UA) Urine Ketones Urine Blood Urine Nitrite Urine Bilirubin Urine Urobilinogen Ur Leukocyte Esterase S1 S2 RRR Lungs decreased, no ronchi Abd- soft, obese, NT no edema PLAN On BIPAP ABG noted empiric antibiotics continue with meds ok for transfer to floors avoid sedatives Problem List - Problems (1) Acute respiratory failure with hypoxia and hypercarbia Code(s): J96.01 - ACUTE RESPIRATORY FAILURE WITH HYPOXIA; J96.02 - ACUTE RESPIRATORY FAILURE WITH HYPERCAPNIA (2) COPD exacerbation Code(s): J44.1 - CHRONIC OBSTRUCTIVE PULMONARY DISEASE W (ACUTE) EXACERBATION (3) Acute on chronic respiratory failure with hypoxia and hypercapnia Code(s): J96.21 - ACUTE AND CHRONIC RESPIRATORY FAILURE WITH HYPOXIA; J96.22 - ACUTE AND CHRONIC RESPIRATORY FAILURE WITH HYPERCAPNIA (4) Pulmonary HTN Code(s): I27.20 - PULMONARY HYPERTENSION, UNSPECIFIED (5) Morbid obesity Code(s): E66.01 - MORBID (SEVERE) OBESITY DUE TO EXCESS CALORIES (6) Sleep apnea Code(s): G47.30 - SLEEP APNEA, UNSPECIFIED Qualifiers: Sleep apnea type: obstructive Qualified Code(s): G47.33 - Obstructive sleep apnea (adult) (pediatric)
[2019-04-06] MEDS: AZITHROMYCIN IVPB 250 MG in DEXTROSE 5%-WATER - 250 ML IVPB SCH (11:13)
--- NOTE | 2019-04-06 11:30 | PN ---
Teaching Attending Note Name of Resident: Tera Grimm ATTENDING PHYSICIAN STATEMENT I saw and evaluated the patient. I reviewed the resident's note and discussed the case with the resident. I agree with the resident's findings and plan as documented. SUBJECTIVE: Pt seen and examined in the ICU. Mental status much improved. States breathing improving. No significant cough or wheezing. OBJECTIVE: Vital Signs Period Temp Pulse Resp BP Sys/[place] Pulse Ox Last 24 Hr 97.2 F-98.7 F 68-100 14-24 97-145/63-78 92-96 Intake & Output 04/03/19 04/04/19 04/05/19 04/06/19 23:59 23:59 23:59 23:59 Intake Total 960 200 Output Total 600 Balance 360 200 Weight 183.705 kg 183.705 kg 184.669 kg Gen: more alert, awake Heart: RRR Lung: distant breath sounds Abd: soft, obese, nontender Ext: no edema CBC, BMP 04/06/19 05:15 04/06/19 05:15 Active Medications Albuterol Sulfate (Ventolin 0.083% Nebulizer Soln -) 1 amp NEB Q4H PRN PRN Reason: SHORT OF BREATH/WHEEZING Last Admin: 04/05/19 01:56 Dose: 1 amp Albuterol/Ipratropium (Duoneb -) 1 amp NEB RQID MINDI Last Admin: 04/06/19 08:00 Dose: 1 amp Enoxaparin Sodium (Lovenox -) 40 mg SQ DAILY MINDI Last Admin: 04/06/19 09:33 Dose: 40 mg Escitalopram Oxalate (Lexapro -) 20 mg PO DAILY MINDI Last Admin: 04/06/19 09:37 Dose: 20 mg Gabapentin (Neurontin -) 100 mg PO TID MINDI Last Admin: 04/06/19 06:19 Dose: 100 mg Azithromycin 250 mg/ Dextrose 250 mls @ 250 mls/hr IVPB DAILY MINDI Stop: 04/08/19 10:59 Last Admin: 04/06/19 11:13 Dose: 250 mls/hr Ceftriaxone Sodium 1 gm/ (Dextrose) 50 mls @ 100 mls/hr IVPB DAILY MINDI; Protocol Last Admin: 04/06/19 09:32 Dose: 100 mls/hr Methylprednisolone Sodium Succinate (Solu-Medrol -) 60 mg IVPUSH Q8H-IV MINDI Last Admin: 04/06/19 09:01 Dose: 60 mg Metoprolol Succinate (Toprol Xl -) 25 mg PO DAILY [facility] Last Admin: 04/06/19 09:37 Dose: 25 mg Ranitidine HCl (Zantac -) 150 mg PO BID [facility] Last Admin: 04/06/19 09:37 Dose: 150 mg ASSESSMENT AND PLAN: Acute on Chronic Hypoxic and Hypercapneic Respiratory Failure Acute COPD Exacerbation RANJIT/OHS r/o Pneumonia HTN DM - continue medrol, will start taper in AM if continues to improve - inhaled bronchodilators standing and PRN - O2 to keep SpO2 88-92% - BiPAP to assist in work of breathing, hypercapnea - continue empiric antibiotics - f/u cultures - minimize sedation - PO as tolerated - DVT/GI prophylaxis - can monitor on telemetry for pulse oximetry monitoring critical care time spent in reviewing chart, evaluating patient and formulating plan 35 min
--- NOTE | 2019-04-06 11:43 | PN ---
Physical Exam: SUBJECTIVE: Overnight, patient had no acute events. Patient seen and examined at the bedside. Had no complaints, stated used BiPAP overnight with good compliance. Denied chest pain, shortness of breath, n/v/c/d, abd pain, weakness , numbness, tingling. Patient stable for transfer to telemetry. Patient was counseled on continuing to use CPAP nightly in order to optimize his respiratory status prior to his surgery in the fall. OBJECTIVE: Vital Signs Period Temp Pulse Resp BP Sys/[place] Pulse Ox Last 24 Hr 97.2 F-98.7 F 68-100 14-24 97-145/63-78 92-96 GENERAL: The patient is awake, alert, and fully oriented, in no acute distress. HEAD: Normal with no signs of trauma. EYES: PERRL, extraocular movements intact, sclera anicteric, conjunctiva clear. No ptosis. NECK: Trachea midline, full range of motion, supple. LUNGS: Breath sounds equal, diminished at the bases, no wheezes, crackles appreciated. HEART: Regular rate and rhythm, S1, S2 without murmur, rub or gallop. ABDOMEN: Soft, nontender, nondistended, normoactive bowel sounds, no guarding, no rebound, no hepatosplenomegaly, no masses. EXTREMITIES: 1+ pulses, warm, well-perfused, trace edema. NEUROLOGICAL: Cranial nerves II through XII grossly intact. Normal speech, gait not observed. PSYCH: Normal mood, normal affect. SKIN: Warm, dry, normal turgor, no rashes or lesions noted Laboratory Results - last 24 hr 04/05/19 04/05/19 04/05/19 05:58 12:09 17:00 WBC RBC Hgb Hct MCV MCH MCHC RDW Plt Count MPV Neutrophils % (Manual) 93.0 H Band Neutrophils % 0.0 Lymphocytes % (Manual) 4.6 L D Monocytes % (Manual) 1 L Eosinophils % (Manual) 0.0 Basophils % (Manual) 0.0 Myelocytes % (Man) 0 Promyelocytes % (Man) 0 Blast Cells % (Manual) 0 Metamyelocytes 0 Hypochromia 0 Platelet Estimate Normal Platelet Comment Present Polychromasia 1+ Poikilocytosis 1+ Basophilic Stippling 1+ Anisocytosis 2+ Microcytosis 1+ Macrocytosis 1+ Spherocytes 1+ Target Cells 1+ Tear Drop Cells 1+ Stomatocytes 1+ Sodium Potassium Chloride Carbon Dioxide Anion Gap BUN Creatinine Est GFR (CKD-EPI)AfAm Est GFR (CKD-EPI)NonAf POC Glucometer 142 126 Random Glucose Calcium Phosphorus Magnesium Total Bilirubin AST ALT Alkaline Phosphatase Total Protein Albumin Urine Color Urine Appearance Urine pH Ur Specific [place] Urine Protein Urine Glucose (UA) Urine Ketones Urine Blood Urine Nitrite Urine Bilirubin Urine Urobilinogen Ur Leukocyte Esterase 04/05/19 04/05/19 04/06/19 20:00 21:28 05:15 WBC 11.9 H RBC 4.78 Hgb 13.3 Hct 43.6 MCV 91.2 MCH 27.9 MCHC 30.6 L RDW 17.2 H Plt Count 282 MPV 7.4 L Neutrophils % (Manual) Band Neutrophils % Lymphocytes % (Manual) Monocytes % (Manual) Eosinophils % (Manual) Basophils % (Manual) Myelocytes % (Man) Promyelocytes % (Man) Blast Cells % (Manual) Metamyelocytes Hypochromia Platelet Estimate Platelet Comment Polychromasia Poikilocytosis Basophilic Stippling Anisocytosis Microcytosis Macrocytosis Spherocytes Target Cells Tear Drop Cells Stomatocytes Sodium Potassium Chloride Carbon Dioxide Anion Gap BUN Creatinine Est GFR (CKD-EPI)AfAm Est GFR (CKD-EPI)NonAf POC Glucometer 149 Random Glucose Calcium Phosphorus Magnesium Total Bilirubin AST ALT Alkaline Phosphatase Total Protein Albumin Urine Color Yellow Urine Appearance Clear Urine pH 5.0 Ur Specific [place] 1.024 Urine Protein Negative Urine Glucose (UA) Negative Urine Ketones Negative Urine Blood Negative Urine Nitrite Negative Urine Bilirubin Negative Urine Urobilinogen 1.0 Ur Leukocyte Esterase Negative 04/06/19 05:15 WBC RBC Hgb Hct MCV MCH MCHC RDW Plt Count MPV Neutrophils % (Manual) Band Neutrophils % Lymphocytes % (Manual) Monocytes % (Manual) Eosinophils % (Manual) Basophils % (Manual) Myelocytes % (Man) Promyelocytes % (Man) Blast Cells % (Manual) Metamyelocytes Hypochromia Platelet Estimate Platelet Comment Polychromasia Poikilocytosis Basophilic Stippling Anisocytosis Microcytosis Macrocytosis Spherocytes Target Cells Tear Drop Cells Stomatocytes Sodium 138 Potassium 5.2 H Chloride 94 L Carbon Dioxide 43 H Anion Gap 1 L BUN 39.2 H Creatinine 1.0 Est GFR (CKD-EPI)AfAm 98.46 Est GFR (CKD-EPI)NonAf 84.95 POC Glucometer Random Glucose 127 H Calcium 8.9 Phosphorus 5.1 H Magnesium 2.8 H Total Bilirubin 0.3 AST 4 L ALT 12 L Alkaline Phosphatase 82 Total Protein 6.8 Albumin 3.3 L Urine Color Urine Appearance Urine pH Ur Specific [place] Urine Protein Urine Glucose (UA) Urine Ketones Urine Blood Urine Nitrite Urine Bilirubin Urine Urobilinogen Ur Leukocyte Esterase Active Medications Generic Name Dose Route Start Last Admin Trade Name Freq PRN Reason Stop Dose Admin Albuterol Sulfate 1 amp 04/05/19 01:21 04/05/19 01:56 Ventolin 0.083% Nebulizer Soln - NEB 1 amp Q4H PRN Administration SHORT OF BREATH/WHEEZING Albuterol/Ipratropium 1 amp 04/05/19 08:00 04/06/19 08:00 Duoneb - NEB 1 amp RQID MINDI Administration Enoxaparin Sodium 40 mg 04/05/19 10:00 04/06/19 09:33 Lovenox - SQ 40 mg DAILY MINDI Administration Escitalopram Oxalate 20 mg 04/05/19 10:00 04/06/19 09:37 Lexapro - PO 20 mg DAILY MINDI Administration Gabapentin 100 mg 04/05/19 06:00 04/06/19 06:19 Neurontin - PO 100 mg TID MINDI Administration Azithromycin 250 mg/ Dextrose 250 mls @ 250 mls/hr 04/05/19 10:00 04/06/19 11 :13 IVPB 04/08/19 10:59 250 mls/hr DAILY MINDI Administration Ceftriaxone Sodium 1 gm/ 50 mls @ 100 mls/hr 04/05/19 10:00 04/06/19 09:32 Dextrose IVPB 100 mls/hr DAILY MINDI Administration Protocol Methylprednisolone Sodium Succinate 60 mg 04/05/19 18:00 04/06/19 09:01 Solu-Medrol - IVPUSH 60 mg Q8H-IV MINDI Administration Metoprolol Succinate 25 mg 04/05/19 10:00 04/06/19 09:37 Toprol Xl - PO 25 mg DAILY MINDI Administration Ranitidine HCl 150 mg 04/05/19 10:00 04/06/19 09:37 Zantac - PO 150 mg BID MINDI Administration ASSESSMENT/PLAN: Satya Rosario is a 53 year old male with a PMHx of COPD, OHS, RANJIT, obesity, HTN who was admitted to the ICU after developing acute on chronic hypercapneic respiratory failure in the setting of his chronic diseases, non compliance with CPAP, and 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 Acute on chronic hypercapneic respiratory failure Obesity hypoventilation syndrome Morbid obesity Obstructive sleep apnea Hypertension COPD NEUROLOGIC - awake and alert - continue home gabapentin CARDIOLOGY - holding valsartan due to elevated potassium - continue home metoprolol 25mg daily - continue to monitor hemodynamics, BP within normal limits RESPIRATORY - on NC 4L - ABG improving, pH 7.28-->7.30-->7.32, retaining CO2 latest 80.2 - acute on chronic respiratory failure with metabolic alkalosis improving - Solumedrol to 60mg q8h IV - consider taper as patient status improves - continue Duonebs q4h prn - continue antibiotics for presumed PNA and COPD exacerbation - repeat CXR shows no pulmonary vascular congestion, no airspace opacities - continue BiPAP at night for RANJIT RENAL - stable GASTROINTESTINAL - continue home ranitidine 150mg bid GENITOURINARY - stable INFECTIOUS DISEASE - continue on ceftriaxone and azithromycin day 2 for presumed CAP - Legionella and strep pneumo urinary antigens negative - blood cultures negative after 24 hours, urine cultures pending ENDOCRINE - stable HEMATOLOGY - stable MUSCULOSKELETAL - physical therapy consult ordered PSYCHIATRY - continue home Lexapro F/E/N - no fluids - hyperkalemia improved from previous day, valsartan held, cardiac status with no acute issues, continue to monitor, can start Kayexelate if continue to rise - NPO while on BiPAP LINES - R forearm placed 10 - R hand placed 7/10 PROPHYLAXIS - Lovenox 40mg subq daily CODE - full code DISPO - stable for transfer to telemetry CASE DISCUSSED WITH DR. LOPEZ AND PRIMARY TEAM RADHA CAZARES DO - PGY-1 INTERNAL MEDICINE Problem List - Problems (1) Acute on chronic respiratory failure with hypoxia and hypercapnia Code(s): J96.21 - ACUTE AND CHRONIC RESPIRATORY FAILURE WITH HYPOXIA; J96.22 - ACUTE AND CHRONIC RESPIRATORY FAILURE WITH HYPERCAPNIA (2) Obesity hypoventilation syndrome Code(s): E66.2 - MORBID (SEVERE) OBESITY WITH ALVEOLAR HYPOVENTILATION (3) Morbid obesity Code(s): E66.01 - MORBID (SEVERE) OBESITY DUE TO EXCESS CALORIES (4) Sleep apnea Code(s): G47.30 - SLEEP APNEA, UNSPECIFIED Qualifiers: Sleep apnea type: obstructive Qualified Code(s): G47.33 - Obstructive sleep apnea (adult) (pediatric) Visit type - Emergency Visit Emergency Visit: No - New Patient This patient is new to me today: No - Critical Care Critical Care patient: No
[2019-04-06] MEDS ORDERED: ALBUTEROL SO4 0.083% IH SOL 2.5 MG/3 ML VIAL.NEB. NEB PRN (20:42)
[2019-04-07] MEDS: methylPREDNISolone NA SUCC 40 MG/1 ML VIAL IVPUSH SCH ×3 (01:43→17:11)
[2019-04-07] MEDS: GABAPENTIN 100 MG CAPSULE (FP) PO SCH ×3 (05:16→21:02)
[2019-04-07] MEDS: ALBUTEROL SO4 2.5/IPRATROPIUM 0.5 INH SOL 3 ML VIAL.NEB. NEB SCH ×4 (08:03→21:05)
[2019-04-07] MEDS ORDERED: cefTRIAXone SODIUM 1 GM VIAL ONE (08:58)
[2019-04-07] MEDS ORDERED: ESCITALOPRAM OXALATE 10 MG TABLET (FP) ONE (08:58)
[2019-04-07] MEDS ORDERED: DEXTROSE 5%-WATER - 50 ML IVPB ONE (08:59)
[2019-04-07] MEDS: metoPROLOL SUCCINATE 25 MG TAB.SR.24H (FP) PO SCH (09:12)
[2019-04-07] MEDS: ESCITALOPRAM OXALATE 20 MG TABLET (FP) PO SCH (09:13)
[2019-04-07] MEDS: RANITIDINE HCL 150 MG TABLET (FP) PO SCH ×2 (09:13→21:02)
[2019-04-07] MEDS: ENOXAPARIN NA (PORCINE) 40 MG/0.4 ML DISP.SYRIN SQ SCH (09:14)
[2019-04-07] MEDS: CEFTRIAXONE 1 GM in DEXTROSE 5%-WATER - 50 ML IVPB SCH (09:25)
[2019-04-07] MEDS: AZITHROMYCIN IVPB 250 MG in DEXTROSE 5%-WATER - 250 ML IVPB SCH (09:59)
--- NOTE | 2019-04-07 11:18 | PN ---
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 Pneumonia HTN DM - medrol will start taper - inhaled bronchodilators standing and PRN - O2 to keep SpO2 88-92% - BiPAP to assist in work of breathing, hypercapnea - continue empiric antibiotics - f/u cultures - minimize sedation - PO as tolerated - DVT/GI prophylaxis Jona BRAVO MD
--- NOTE | 2019-04-07 14:24 | PN ---
Progress Note (short form) - Note Progress Note: pt seen/ examined chart reviewed awake/ comfortable feels much better Vital Signs Temp 97.6 F 04/07/19 10:00 Pulse 74 04/07/19 10:00 Resp 18 04/07/19 10:00 BP 135/78 04/07/19 10:00 Pulse Ox 93 L 04/07/19 09:00 Intake & Output 04/06/19 04/07/19 04/07/19 23:59 11:59 23:59 Intake Total 300 Balance 300 Weight 407 lb 14.4 oz Intake: Oral 300 Other: Voiding Method Diaper Diaper # Unmeasured Voids Void 1 2 Bowel Movement No Weight Measurement Method Built in [facility] Active Medications Albuterol Sulfate (Ventolin 0.083% Nebulizer Soln -) 1 amp NEB Q4H PRN PRN Reason: SHORT OF BREATH/WHEEZING Albuterol/Ipratropium (Duoneb -) 1 amp NEB RQID [facility] Last Admin: 04/07/19 11:37 Dose: 1 amp Enoxaparin Sodium (Lovenox -) 40 mg SQ DAILY [facility] Last Admin: 04/07/19 09:14 Dose: 40 mg Escitalopram Oxalate (Lexapro -) 20 mg PO DAILY [facility] Last Admin: 04/07/19 09:13 Dose: 20 mg Gabapentin (Neurontin -) 100 mg PO TID [facility] Last Admin: 04/07/19 13:19 Dose: 100 mg Azithromycin 250 mg/ Dextrose 250 mls @ 250 mls/hr IVPB DAILY [facility] Stop: 04/08/19 10:59 Last Admin: 04/07/19 09:59 Dose: 250 mls/hr Ceftriaxone Sodium 1 gm/ (Dextrose) 50 mls @ 100 mls/hr IVPB DAILY [facility]; Protocol Last Admin: 04/07/19 09:25 Dose: 100 mls/hr Methylprednisolone Sodium Succinate (Solu-Medrol -) 40 mg IVPUSH Q8H-IV MINDI Metoprolol Succinate (Toprol Xl -) 25 mg PO DAILY [facility] Last Admin: 04/07/19 09:12 Dose: 25 mg Ranitidine HCl (Zantac -) 150 mg PO BID [facility] Last Admin: 04/07/19 09:13 Dose: 150 mg CBC, BMP 04/06/19 05:15 04/06/19 05:15 Microbiology 04/05/19 20:00 Urine Culture - Final Urine - Urine Clean Catch NO GROWTH OBTAINED 04/04/19 20:05 Blood Culture - Preliminary Blood - Peripheral Venous NO GROWTH OBTAINED AFTER 48 HOURS, INCUBATION TO CONTINUE FOR 3 DAYS. 04/04/19 19:55 Blood Culture - Preliminary Blood - Peripheral Venous NO GROWTH OBTAINED AFTER 48 HOURS, INCUBATION TO CONTINUE FOR 3 DAYS. 04/05/19 20:00 Legionella Antigen - Final Urine For Antigen Detection Streptococcus pneumoniae Antigen (M - Final ABG Results ABG pH 7.32 (7.35-7.45) L 04/05/19 04:00 ABG pCO2 at Pt Temp 80.2 mmHg (35-45) H* 04/05/19 04:00 ABG pO2 at Pt Temp 58.9 mmHg (80-105) L 04/05/19 04:00 ABG HCO3 40.6 mmol/L (22-27) H 04/05/19 04:00 ABG O2 Sat (Measured) 87.5 % (95-98) L 04/05/19 04:00 ABG O2 Content 16.5 % vol (15-22) 04/05/19 04:00 ABG Base Excess 11.2 meq/l (-2-2) H 04/05/19 04:00 Physical Exam awake/ comfortable. Morbidly obese S1 S2 RRR Lungs decreased but bilateral Abd- soft, obese, NT no edema. neuro- alert/ awake PLAN On BIPAP better empiric antibiotics continue with meds ok for transfer to floors avoid sedatives oob - chair pulmonary following Problem List - Problems (1) Acute respiratory failure with hypoxia and hypercarbia Code(s): J96.01 - ACUTE RESPIRATORY FAILURE WITH HYPOXIA; J96.02 - ACUTE RESPIRATORY FAILURE WITH HYPERCAPNIA (2) COPD exacerbation Code(s): J44.1 - CHRONIC OBSTRUCTIVE PULMONARY DISEASE W (ACUTE) EXACERBATION (3) Acute on chronic respiratory failure with hypoxia and hypercapnia Code(s): J96.21 - ACUTE AND CHRONIC RESPIRATORY FAILURE WITH HYPOXIA; J96.22 - ACUTE AND CHRONIC RESPIRATORY FAILURE WITH HYPERCAPNIA (4) Pulmonary HTN Code(s): I27.20 - PULMONARY HYPERTENSION, UNSPECIFIED (5) Morbid obesity Code(s): E66.01 - MORBID (SEVERE) OBESITY DUE TO EXCESS CALORIES (6) Sleep apnea Code(s): G47.30 - SLEEP APNEA, UNSPECIFIED Qualifiers: Sleep apnea type: obstructive Qualified Code(s): G47.33 - Obstructive sleep apnea (adult) (pediatric)
[2019-04-08] MEDS: methylPREDNISolone NA SUCC 40 MG/1 ML VIAL IVPUSH SCH ×4 (01:22→17:42)
[2019-04-08] MEDS: GABAPENTIN 100 MG CAPSULE (FP) PO SCH ×3 (05:02→22:08)
[2019-04-08 06:33] LABS: BASO % 0.1 % (0-2.0); HEMATOCRIT 41.8 % (35.4-49); HEMOGLOBIN 13.1 GM/dL (11.7-16.9); LYMPH % 3.9 % (8-40); MCH 28.2 pg (25.7-33.7); MCHC 31.4 g/dl (32.0-35.9); MEAN PLT VOLUME 7.5 fl (7.5-11.1); MONO % 1.8 % (3.8-10.2); NEUT % 94.2 % (42.8-82.8); PLATELET COUNT 230 K/MM3 (134-434); RBC 4.65 M/mm3 (4.00-5.60); RDW 16.8 % (11.9-15.9); WHITE BLOOD COUNT 9.7 K/mm3 (4.0-10.0)
[2019-04-08 07:36] LABS: ALBUMIN 3.1 g/dl (3.4-5.0); BILIRUBIN,TOTAL 0.2 mg/dL (0.2-1); BLOOD UREA NITROGEN 28.6 mg/dL (7-18); CALCIUM 8.3 mg/dL (8.5-10.1); CREATININE 0.8 mg/dL (0.55-1.3); POTASSIUM 5.3 mmol/L (3.5-5.1)
[2019-04-08] MEDS ORDERED: cefTRIAXone SODIUM 1 GM VIAL ONE (08:17)
[2019-04-08] MEDS ORDERED: DEXTROSE 5%-WATER - 50 ML IVPB ONE (08:17)
[2019-04-08] MEDS ORDERED: PT OWN MED DRAWER 7, Y5N ONE (08:17)
[2019-04-08] MEDS ORDERED: ESCITALOPRAM OXALATE 10 MG TABLET (FP) ONE (08:17)
[2019-04-08] MEDS: ALBUTEROL SO4 2.5/IPRATROPIUM 0.5 INH SOL 3 ML VIAL.NEB. NEB SCH ×4 (08:18→19:36)
[2019-04-08] MEDS: ESCITALOPRAM OXALATE 20 MG TABLET (FP) PO SCH (09:14)
[2019-04-08] MEDS: metoPROLOL SUCCINATE 25 MG TAB.SR.24H (FP) PO SCH (09:14)
[2019-04-08] MEDS: RANITIDINE HCL 150 MG TABLET (FP) PO SCH ×2 (09:14→22:08)
[2019-04-08] MEDS: ENOXAPARIN NA (PORCINE) 40 MG/0.4 ML DISP.SYRIN SQ SCH (09:15)
[2019-04-08] MEDS: CEFTRIAXONE 1 GM in DEXTROSE 5%-WATER - 50 ML IVPB SCH (09:16)
--- NOTE | 2019-04-08 09:29 | PN ---
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 Obesity Gen: appears stable/conversant/not confused Heart: RRR Lung: distant breath sounds Abd: soft, obese, nontender Ext: no edema labs/meds/notes/images reviewed ASSESSMENT AND PLAN: Acute on Chronic Hypoxic and Hypercapneic Respiratory Failure Acute COPD Exacerbation RANJIT/OHS ? Pneumonia HTN DM - medrol will start taper - inhaled bronchodilators standing and PRN - O2 to keep SpO2 88-92% - BiPAP to assist in work of breathing, hypercapnea - continue empiric antibiotics - f/u cultures - minimize sedation - PO as tolerated - DVT/GI prophylaxis Jona BRAVO MD
[2019-04-08] MEDS: AZITHROMYCIN IVPB 250 MG in DEXTROSE 5%-WATER - 250 ML IVPB SCH (11:57)
[2019-04-08 13:21] LABS: ANISOCYTOSIS 0; MACROCYTOSIS 0; PLATELET ESTIMATE NORMAL
--- NOTE | 2019-04-08 16:26 | PN ---
Progress Note (short form) - Note Progress Note: at baseline off BIPAP now, was on it at night awake and alert no complaints Vital Signs - 24 hr 04/07/19 04/07/19 04/07/19 18:00 20:00 21:05 Temperature 98.2 F 98.7 F Pulse Rate 81 94 H Respiratory 18 20 Rate Blood Pressure 139/83 132/75 O2 Sat by Pulse 92 L 94 L Oximetry (%) 04/08/19 04/08/19 04/08/19 00:00 00:06 02:00 Temperature 98.1 F Pulse Rate 75 Respiratory 20 Rate Blood Pressure 105/57 L O2 Sat by Pulse 92 L 96 Oximetry (%) 04/08/19 04/08/19 04/08/19 03:15 06:00 10:00 Temperature 97.6 F 98.0 F Pulse Rate 74 88 Respiratory 20 20 Rate Blood Pressure 114/65 113/67 O2 Sat by Pulse 94 L 92 L Oximetry (%) 04/08/19 13:05 Temperature 98.7 F Pulse Rate 86 Respiratory 18 Rate Blood Pressure 143/84 O2 Sat by Pulse Oximetry (%) Current Medications Generic Name Dose Route Start Last Admin Trade Name Freq PRN Reason Stop Dose Admin Albuterol Sulfate 1 amp 04/06/19 20:42 Ventolin 0.083% Nebulizer Soln - NEB Q4H PRN SHORT OF BREATH/WHEEZING Albuterol/Ipratropium 1 amp 04/07/19 08:00 04/08/19 15:28 Duoneb - NEB 1 amp RQID MINDI Administration Enoxaparin Sodium 40 mg 04/07/19 10:00 04/08/19 09:15 Lovenox - SQ 40 mg DAILY [facility]I Administration Escitalopram Oxalate 20 mg 04/07/19 10:00 04/08/19 09:14 Lexapro - PO 20 mg DAILY [facility] Administration Gabapentin 100 mg 04/06/19 22:00 04/08/19 14:40 Neurontin - PO 100 mg TID MINDI Administration Ceftriaxone Sodium 1 gm/ 50 mls @ 100 mls/hr 04/07/19 10:00 04/08/19 09:16 Dextrose IVPB 100 mls/hr DAILY [facility]I Administration Protocol Methylprednisolone Sodium Succinate 20 mg 04/08/19 10:00 04/08/19 11:57 Solu-Medrol - IVPUSH 20 mg Q8H-IV MINDI Administration Metoprolol Succinate 25 mg 04/07/19 10:00 04/08/19 09:14 Toprol Xl - PO 25 mg DAILY [facility] Administration Ranitidine HCl 150 mg 04/06/19 22:00 04/08/19 09:14 Zantac - PO 150 mg BID MINDI Administration Laboratory Results - last 24 hr 04/08/19 04/08/19 05:30 05:30 WBC 9.7 RBC 4.65 Hgb 13.1 Hct 41.8 MCV 90.0 MCH 28.2 MCHC 31.4 L RDW 16.8 H Plt Count 230 MPV 7.5 Absolute Neuts (auto) 9.1 H Neutrophils % 94.2 H Neutrophils % (Manual) 92.0 H Band Neutrophils % 0.0 Lymphocytes % 3.9 L Lymphocytes % (Manual) 4.0 L Monocytes % 1.8 L D Monocytes % (Manual) 4 D Eosinophils % 0.0 Eosinophils % (Manual) 0.0 Basophils % 0.1 Basophils % (Manual) 0.0 Myelocytes % (Man) 0 Promyelocytes % (Man) 0 Blast Cells % (Manual) 0 Nucleated RBC % 0 Metamyelocytes 0 Hypochromia 0 Platelet Estimate Normal Polychromasia 0 Poikilocytosis 0 Basophilic Stippling 1+ Anisocytosis 0 Microcytosis 0 Macrocytosis 0 Sodium 139 Potassium 5.3 H Chloride 97 L Carbon Dioxide 40 H Anion Gap 1 L BUN 28.6 H Creatinine 0.8 Est GFR (CKD-EPI)AfAm 117.38 Est GFR (CKD-EPI)NonAf 101.27 Random Glucose 135 H Calcium 8.3 L Total Bilirubin 0.2 AST 4 L ALT 14 Alkaline Phosphatase 64 Total Protein 6.0 L Albumin 3.1 L S1 S2 RRR Lungs decreased, no ronchi Abd- soft, obese, NT no edema PLAN On BIPAP empiric antibiotics continue with meds taper solumedrol OOB daily nebs Problem List - Problems (1) Acute respiratory failure with hypoxia and hypercarbia Code(s): J96.01 - ACUTE RESPIRATORY FAILURE WITH HYPOXIA; J96.02 - ACUTE RESPIRATORY FAILURE WITH HYPERCAPNIA (2) COPD exacerbation Code(s): J44.1 - CHRONIC OBSTRUCTIVE PULMONARY DISEASE W (ACUTE) EXACERBATION (3) Acute on chronic respiratory failure with hypoxia and hypercapnia Code(s): J96.21 - ACUTE AND CHRONIC RESPIRATORY FAILURE WITH HYPOXIA; J96.22 - ACUTE AND CHRONIC RESPIRATORY FAILURE WITH HYPERCAPNIA (4) Pulmonary HTN Code(s): I27.20 - PULMONARY HYPERTENSION, UNSPECIFIED (5) Morbid obesity Code(s): E66.01 - MORBID (SEVERE) OBESITY DUE TO EXCESS CALORIES (6) Sleep apnea Code(s): G47.30 - SLEEP APNEA, UNSPECIFIED Qualifiers: Sleep apnea type: obstructive Qualified Code(s): G47.33 - Obstructive sleep apnea (adult) (pediatric)
[2019-04-09] MEDS: methylPREDNISolone NA SUCC 40 MG/1 ML VIAL IVPUSH SCH (01:55)
[2019-04-09] MEDS: GABAPENTIN 100 MG CAPSULE (FP) PO SCH ×3 (06:02→22:14)
[2019-04-09] MEDS: ALBUTEROL SO4 2.5/IPRATROPIUM 0.5 INH SOL 3 ML VIAL.NEB. NEB SCH ×4 (07:57→20:28)
--- NOTE | 2019-04-09 09:03 | PN ---
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 Obesity Gen: appears stable/conversant/not confused Heart: RRR Lung: distant breath sounds Abd: soft, obese, nontender Ext: no edema labs/meds/notes/images reviewed ASSESSMENT AND PLAN: Acute on Chronic Hypoxic and Hypercapneic Respiratory Failure Acute COPD Exacerbation RANJIT/OHS ? Pneumonia HTN DM - medrol changed to prednisone - inhaled bronchodilators standing and PRN - O2 to keep SpO2 88-92% - BiPAP to assist in work of breathing, hypercapnea - continue empiric antibiotics mas per primary team - minimize sedation - PO as tolerated - DVT/GI prophylaxis Jona BRAVO MD
--- NOTE | 2019-04-09 09:08 | PN ---
Progress Note (short form) - Note Progress Note: at baseline awake and alert no complaints Vital Signs - 24 hr 04/08/19 04/08/19 04/09/19 18:00 21:00 02:00 Temperature 98.6 F 98.1 F 98.0 F Pulse Rate 83 78 77 Respiratory 19 20 20 Rate Blood Pressure 131/80 129/79 130/80 O2 Sat by Pulse 95 Oximetry (%) 04/09/19 04/09/19 04/09/19 02:24 06:00 06:09 Temperature 97.7 F Pulse Rate 84 Respiratory 20 Rate Blood Pressure 132/78 O2 Sat by Pulse 95 94 L Oximetry (%) Current Medications Generic Name Dose Route Start Last Admin Trade Name Freq PRN Reason Stop Dose Admin Al Hydroxide/Mg Hydroxide 30 ml 04/09/19 14:36 Mylanta Oral Suspension - PO Q6H PRN INDIGESTION Albuterol Sulfate 1 amp 04/06/19 20:42 Ventolin 0.083% Nebulizer Soln - NEB Q4H PRN SHORT OF BREATH/WHEEZING Albuterol/Ipratropium 1 amp 04/07/19 08:00 04/09/19 11:29 Duoneb - NEB 1 amp RQID MINDI Administration Enoxaparin Sodium 40 mg 04/07/19 10:00 04/09/19 10:52 Lovenox - SQ 40 mg DAILY MINDI Administration Escitalopram Oxalate 20 mg 04/07/19 10:00 04/09/19 10:52 Lexapro - PO 20 mg DAILY MINDI Administration Gabapentin 100 mg 04/06/19 22:00 04/09/19 06:02 Neurontin - PO 100 mg TID MINDI Administration Ceftriaxone Sodium 1 gm/ 50 mls @ 100 mls/hr 04/07/19 10:00 04/09/19 10:51 Dextrose IVPB 100 mls/hr DAILY [facility]I Administration Protocol Metoprolol Succinate 25 mg 04/07/19 10:00 04/09/19 10:52 Toprol Xl - PO 25 mg DAILY M[facility]I Administration Prednisone 20 mg 04/09/19 10:00 04/09/19 10:52 Deltasone - PO 20 mg DAILY [facility] Administration Ranitidine HCl 150 mg 04/06/19 22:00 04/09/19 10:52 Zantac - PO 150 mg BID MINDI Administration S1 S2 RRR Lungs decreased, no ronchi Abd- soft, obese, NT no edema PLAN On BIPAP empiric antibiotics continue with meds taper solumedrol-->now on po prednisone OOB daily nebs dc planning - will need BIPAP [place] Problem List - Problems (1) Acute respiratory failure with hypoxia and hypercarbia Code(s): J96.01 - ACUTE RESPIRATORY FAILURE WITH HYPOXIA; J96.02 - ACUTE RESPIRATORY FAILURE WITH HYPERCAPNIA (2) COPD exacerbation Code(s): J44.1 - CHRONIC OBSTRUCTIVE PULMONARY DISEASE W (ACUTE) EXACERBATION (3) Acute on chronic respiratory failure with hypoxia and hypercapnia Code(s): J96.21 - ACUTE AND CHRONIC RESPIRATORY FAILURE WITH HYPOXIA; J96.22 - ACUTE AND CHRONIC RESPIRATORY FAILURE WITH HYPERCAPNIA (4) Pulmonary HTN Code(s): I27.20 - PULMONARY HYPERTENSION, UNSPECIFIED (5) Morbid obesity Code(s): E66.01 - MORBID (SEVERE) OBESITY DUE TO EXCESS CALORIES (6) Sleep apnea Code(s): G47.30 - SLEEP APNEA, UNSPECIFIED Qualifiers: Sleep apnea type: obstructive Qualified Code(s): G47.33 - Obstructive sleep apnea (adult) (pediatric)
[2019-04-09] MEDS ORDERED: cefTRIAXone SODIUM 1 GM VIAL ONE (10:39)
[2019-04-09] MEDS ORDERED: DEXTROSE 5%-WATER - 50 ML IVPB ONE (10:39)
[2019-04-09] MEDS ORDERED: ESCITALOPRAM OXALATE 10 MG TABLET (FP) ONE (10:39)
[2019-04-09] MEDS: CEFTRIAXONE 1 GM in DEXTROSE 5%-WATER - 50 ML IVPB SCH (10:51)
[2019-04-09] MEDS: predniSONE 20 MG TABLET (UD) PO SCH (10:52)
[2019-04-09] MEDS: ENOXAPARIN NA (PORCINE) 40 MG/0.4 ML DISP.SYRIN SQ SCH (10:52)
[2019-04-09] MEDS: ESCITALOPRAM OXALATE 20 MG TABLET (FP) PO SCH (10:52)
[2019-04-09] MEDS: RANITIDINE HCL 150 MG TABLET (FP) PO SCH ×2 (10:52→22:14)
[2019-04-09] MEDS: metoPROLOL SUCCINATE 25 MG TAB.SR.24H (FP) PO SCH (10:52)
[2019-04-09] MEDS ORDERED: MAG HYDROX/AL HYDROX/SIMETH 30 ML UNIT-DOSE CUP PO PRN (14:36)
[2019-04-10] MEDS: GABAPENTIN 100 MG CAPSULE (FP) PO SCH ×2 (05:32→13:27)
[2019-04-10] MEDS: ALBUTEROL SO4 2.5/IPRATROPIUM 0.5 INH SOL 3 ML VIAL.NEB. NEB SCH ×3 (07:30→16:52)
[2019-04-10] MEDS ORDERED: ESCITALOPRAM OXALATE 10 MG TABLET (FP) ONE (09:09)
[2019-04-10] MEDS ORDERED: DEXTROSE 5%-WATER - 50 ML IVPB ONE (09:10)
[2019-04-10] MEDS ORDERED: cefTRIAXone SODIUM 1 GM VIAL ONE (09:10)
[2019-04-10] MEDS: CEFTRIAXONE 1 GM in DEXTROSE 5%-WATER - 50 ML IVPB SCH (09:21)
[2019-04-10] MEDS: ESCITALOPRAM OXALATE 20 MG TABLET (FP) PO SCH (09:24)
[2019-04-10] MEDS: predniSONE 20 MG TABLET (UD) PO SCH (09:24)
[2019-04-10] MEDS: RANITIDINE HCL 150 MG TABLET (FP) PO SCH (09:24)
[2019-04-10] MEDS: metoPROLOL SUCCINATE 25 MG TAB.SR.24H (FP) PO SCH (09:24)
[2019-04-10] MEDS: ENOXAPARIN NA (PORCINE) 40 MG/0.4 ML DISP.SYRIN SQ SCH (09:26)
--- NOTE | 2019-04-10 11:46 | PN ---
Progress Note, Physician History of Present Illness: pulmonary alert,comfortable,nasal o2,-tachypnea - Current Medication List Current Medications: Active Medications Al Hydroxide/Mg Hydroxide (Mylanta Oral Suspension -) 30 ml PO Q6H PRN PRN Reason: INDIGESTION Last Admin: 04/09/19 14:56 Dose: 30 ml Albuterol Sulfate (Ventolin 0.083% Nebulizer Soln -) 1 amp NEB Q4H PRN PRN Reason: SHORT OF BREATH/WHEEZING Albuterol/Ipratropium (Duoneb -) 1 amp NEB RQID [facility] Last Admin: 04/10/19 07:30 Dose: 1 amp Enoxaparin Sodium (Lovenox -) 40 mg SQ DAILY [facility] Last Admin: 04/10/19 09:26 Dose: 40 mg Escitalopram Oxalate (Lexapro -) 20 mg PO DAILY [facility] Last Admin: 04/10/19 09:24 Dose: 20 mg Gabapentin (Neurontin -) 100 mg PO TID [facility] Last Admin: 04/10/19 05:32 Dose: 100 mg Ceftriaxone Sodium 1 gm/ (Dextrose) 50 mls @ 100 mls/hr IVPB DAILY [facility]; Protocol Last Admin: 04/10/19 09:21 Dose: 100 mls/hr Metoprolol Succinate (Toprol Xl -) 25 mg PO DAILY [facility] Last Admin: 04/10/19 09:24 Dose: 25 mg Prednisone (Deltasone -) 20 mg PO DAILY [facility] Last Admin: 04/10/19 09:24 Dose: 20 mg Ranitidine HCl (Zantac -) 150 mg PO BID [facility] Last Admin: 04/10/19 09:24 Dose: 150 mg - Objective Vital Signs: Vital Signs Temperature 99 F 04/10/19 09:29 Pulse Rate 82 04/10/19 09:29 Respiratory Rate 22 H 04/10/19 09:29 Blood Pressure 105/56 L 04/10/19 09:29 O2 Sat by Pulse Oximetry (%) 91 L 04/10/19 09:41 Constitutional: Yes: Well Nourished, Obese Eyes: Yes: WNL HENT: Yes: WNL Neck: Yes: WNL Cardiovascular: Yes: Regular Rate and Rhythm, S1, S2 Respiratory: Yes: Diminished Gastrointestinal: Yes: Normal Bowel Sounds, Abdomen, Obese Extremities: Yes: WNL Edema: Yes Labs: CBC, BMP Problem List - Problems (1) COPD exacerbation Code(s): J44.1 - CHRONIC OBSTRUCTIVE PULMONARY DISEASE W (ACUTE) EXACERBATION (2) Acute on chronic respiratory failure with hypoxia and hypercapnia Code(s): J96.21 - ACUTE AND CHRONIC RESPIRATORY FAILURE WITH HYPOXIA; J96.22 - ACUTE AND CHRONIC RESPIRATORY FAILURE WITH HYPERCAPNIA (3) Cor pulmonale Code(s): I27.81 - COR PULMONALE (CHRONIC) (4) Obesity hypoventilation syndrome Code(s): E66.2 - MORBID (SEVERE) OBESITY WITH ALVEOLAR HYPOVENTILATION (5) Pulmonary HTN Code(s): I27.20 - PULMONARY HYPERTENSION, UNSPECIFIED (6) Morbid obesity Code(s): E66.01 - MORBID (SEVERE) OBESITY DUE TO EXCESS CALORIES (7) Sleep apnea Code(s): G47.30 - SLEEP APNEA, UNSPECIFIED Qualifiers: Sleep apnea type: obstructive Qualified Code(s): G47.33 - Obstructive sleep apnea (adult) (pediatric) Assessment/Plan ASSESSMENT AND PLAN: Acute on Chronic Hypoxic and Hypercapneic Respiratory Failure improving Acute COPD Exacerbation improving RANJIT/OHS r/o Pneumonia HTN DM - prednisone - inhaled bronchodilators standing and PRN - O2 to keep SpO2 88-92% - BiPAP to assist in work of breathing, hypercapnea - DVT/GI prophylaxis - abx DR BUCHANAN
--- NOTE | 2019-04-10 13:01 | DS ---
Physical Examination Vital Signs: Vital Signs Temperature 99 F 04/10/19 09:29 Pulse Rate 82 04/10/19 09:29 Respiratory Rate 22 H 04/10/19 09:29 Blood Pressure 105/56 L 04/10/19 09:29 O2 Sat by Pulse Oximetry (%) 91 L 04/10/19 09:41 Findings/Remarks: pt seen/ examined chart reviewed feels well much better Constitutional: Yes: Obese Eyes: Yes: Conjunctiva Clear Neck: Yes: Supple Cardiovascular: Yes: Regular Rate and Rhythm Respiratory: Yes: Diminished Gastrointestinal: Yes: Abdomen, Obese Edema: No Neurological: Yes: Alert Labs: CBC, BMP 04/08/19 05:30 04/08/19 05:30 Discharge Summary Reason For Visit: ACUTE RESPIRATUORY FAILURE WITH HYPOXIA AND Current Active Problems Acute respiratory failure with hypoxia and hypercarbia (Acute) COPD exacerbation (Acute) Hospital Course: Admitted for acute respiratory failure-- retaining co2 Treated with abx. much better with BIpap echo- Normal Lv function Pulmonary also followed stable for d/c Bipap At night time and Prn meds reconcilled Discussed with nursing staff also d/c back to long-term today Condition: Stable - Instructions Disposition: [facility] - Home Medications Comprehensive Discharge Medication List: Ambulatory Orders Acetaminophen 500 mg PO Q6H PRN 04/04/19 Albuterol 2.5/Ipratropium 0.5 [Duoneb -] 1 amp NEB PRN PRN 04/04/19 Calcium Carbonate [Tums] 200 mg PO BID PRN 04/04/19 Enoxaparin [Lovenox -] 40 mg SQ DAILY 04/04/19 Ergocalciferol [Vitamin D2] 50,000 unit PO WEEKLY 04/04/19 Escitalopram Oxalate [Lexapro -] 20 mg PO DAILY 04/04/19 Gabapentin [Neurontin] 100 mg PO TID 04/04/19 Liraglutide [Victoza -] 0.6 mg SQ DAILY 04/04/19 Mag Hydrox/Al Hydrox/Simeth [Mylanta Oral Suspension -] 15 ml PO TID PRN Magnesium Hydroxide [Milk of Magnesia] 30 ml PO DAILY PRN 04/04/19 Metoprolol Succinate 25 mg PO DAILY 04/04/19 Ranitidine [Zantac -] 150 mg PO BID 04/04/19 Spironolactone [Aldactone] 25 mg PO DAILY 04/04/19 Telmisartan [Micardis] 80 mg PO DAILY 04/04/19 Mag Hydrox/Al Hydrox/Simeth [Mylanta Oral Suspension -] 30 ml PO Q6H PRN cup predniSONE [Deltasone -] 20 mg PO DAILY #30 tablet 04/10/19
[2019-04-10 14:07] VITALS: BP 116/55; PULSE 120; TEMP 99.3
== END 2019-04-10 18:24 | DRG 190 ==
LOC: JER 17:15 → JERBED 20:54 → JICU 04-05 01:31 → J4S 04-06 20:18
PROVIDERS: ADMIT Internal Medicine; ATTEND Internal Medicine
PROC: 5A09557 Assistance with Respiratory Ventilation, Greater than 96 Consecutive Hours, Continuous Positive Airway Pressure (ICD-10-PCS; principal; 2019-04-04)
DX: J44.1 Chronic obstructive pulmonary disease with (acute) exacerbation (principal); J96.01 Acute respiratory failure with hypoxia; J96.02 Acute respiratory failure with hypercapnia; Z68.43 Body mass index [BMI] 50.0-59.9, adult; E87.2 Acidosis; E87.3 Alkalosis; E66.01 Morbid (severe) obesity due to excess calories; I10 Essential (primary) hypertension; E87.5 Hyperkalemia; E11.9 Type 2 diabetes mellitus without complications; G47.33 Obstructive sleep apnea (adult) (pediatric); I27.20 Pulmonary hypertension, unspecified
CPT/HCPCS: 36415; 36600; 71045-TC-FY; 80053; 81003; 82375; 82803; 82962; 83036; 83050; 83605; 83735; 83880; 84100; 84484; 85025; 85027; 85610; 85730; 87040; 87086; 87899; 90732; 93005; 93010; 93306-TC; 94640; 94660; 97116-GP; 97162-GP; 99285-25; G0009

== ENCOUNTER 2019-05-13 10:39 | Inpatient (IN) | payer MEDICARE, OTHER ==
--- NOTE | 2019-05-13 11:23 | PDOC ---
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 lung sound distant based on his body habitus GENERAL: The patient is somnolent, but arousable by voice, confused, morbidly obese HEAD: Normocephalic, atraumatic. EYES: extraocular movements intact, sclera anicteric, conjunctiva clear. NECK: Normal range of motion, supple LUNGS: dsitant breath sounds, HEART: Regular rate and rhythm, normal S1 and S2 without murmur, rub or gallop. ABDOMEN: Soft, nontender, No guarding, no rebound. No CVA tenderness NEUROLOGICAL: lmimted neuro exam due to compliance PSYCH: Normal mood, normal affect. SKIN: Warm, Dry, normal turgor, pt noted febrile suspect pna w acute respiratory failure and ams may be due to hypercapnea sepsis orderset obtained pt started on bipap will give pt solumedrol, duo nebs will continue to monitor - Physicial Exam PE: 05/15/19 01:52 see above - Critical Care Time Total Critical Care Time: 110 Critical Care Statement: The care of this patient involved high complexity decision making to prevent further life threatening deterioration of the patient 's condition and/or to evaluate & treat vital organ system(s) failure or risk of failure. - Medical Decision Making 05/13/19 11:45 pt extremely somnolent - suspect hypercapneic respiratory failure - pt is on bipap, tritrating his rate. pt currently arousable to painful stimulus only and not able to tell his name. if clinically worsening, consider intubation 05/13/19 12:32 pt clinically seems to be improving - currently arousable to verbal stimulus - on bipap 20/8, rate of 24, 35% o2 saturating at 87%. will continue to monitor cxr noted for infiltrates will start broad spectrum abx coverage 05/13/19 14:41 pts PH is worsening will intubate the patient 05/13/19 15:14 pt was intubated using direct laryngostcopy by resident Alayna pt was preoxgenated pt inducted with 20mg etomidate, 100mg succ initial attempt using DL, danii visualized, but was unable pass tube on 2nd attempt., bougie was used and successfully inbuated with 7.5 ETT no hypoxsia throughout placed at 24cm breath sounds bilaterally no sounds in the gastric region will admit to the ICU 05/13/19 18:14 post intubation film reveals ett above bob and ngt past diaphragm Heart Score/ECG Review - ECG Impressions Comment:: 05/13/19 16:08 Twelve-lead EKG was performed and reviewed by me. There is normal sinus rhythm with a normal rate. rate of [address] changes suggestive of acute ischemia normal axis Procedures - Consent Consent obtained: Unable to obtain - Intubation Time of Intubation: 15:10 Intubation Method: orotracheal Blade used: Mac Tube Size (Fr): 7.5 Medications: Etomidate, Succinylcholine Tube position @ lip (cm): 22 Tube position confirmed by: Direct visualization Breath Sounds after Intubation: equal Intubation Complications: no complications Post Intubation Xray: Yes
[2019-05-13] MEDS ORDERED: ALBUTEROL SO4 2.5/IPRATROPIUM 0.5 INH SOL 3 ML VIAL.NEB. NEB ONE ×2 (11:24→11:29)
[2019-05-13] MEDS ORDERED: methylPREDNISolone NA SUCC 125 MG/2 ML VIAL IVPUSH ONE (11:30)
[2019-05-13] MEDS ORDERED: PIPERACILLIN/TAZOB 4.5 GM 4.5 GM in DEXTROSE 5%-WATER 100 ML IVPB ONE (11:36)
[2019-05-13] MEDS ORDERED: VANCOMYCIN HCL 1,500 MG in DEXTROSE 5%-WATER - 500 ML IVPB ONE (11:37)
[2019-05-13 11:47] LABS: BASO % 0.9 % (0-2.0); EOS % 0.3 % (0-4.5); HEMATOCRIT 39.6 % (35.4-49); HEMOGLOBIN 12.2 GM/dL (11.7-16.9); LYMPH % 8.6 % (8-40); MCH 27.8 pg (25.7-33.7); MCHC 30.7 g/dl (32.0-35.9); MEAN CELL VOLUME 90.3 fl (80-96); MEAN PLT VOLUME 6.8 fl (7.5-11.1); MONO % 4.1 % (3.8-10.2); NEUT % 86.1 % (42.8-82.8); PLATELET COUNT 286 K/MM3 (134-434); RBC 4.39 M/mm3 (4.00-5.60); RDW 19.4 % (11.9-15.9); WHITE BLOOD COUNT 11.9 K/mm3 (4.0-10.0)
[2019-05-13] MEDS ORDERED: methylPREDNISolone NA SUCC 125 MG/2 ML VIAL ONE (11:54)
--- NOTE | 2019-05-13 12:13 | PDOC ---
History of Present Illness <Sedrick Catalan - Last Filed: 05/13/19 15:49> - General History Source: Custodial Records Exam Limitations: Clinical Condition - History of Present Illness Initial Comments: Mr. Rosario is a 54 y/o man with hx HFpEF, COPD, HTN, HLD, hypoxic hypercapneic respiratory failure presenting from [facility] with fever, confusion, and hypoxia. History limited by somnolence and AMS - he is able to report his location, name, the year but unable to speak more than 1-2 word sentences. Per EMS he was found to be hypoxic this morning by [facility] staff, and EMS was called when the hypoxia did not improve with NRB. --- [facility] contacted - at baseline he is fully alert and oriented. Hx notable for prior respiratory failure requiring ICU admission. <Kris Devine - Last Filed: 05/25/19 11:02> - General Chief Complaint: Shortness of Breath Stated Complaint: DIFFICULTY BREATHING Time Seen by Provider: 05/13/19 11:10 Past History <Sedrick Catalan - Last Filed: 05/13/19 15:49> - Past Medical History Anemia: No Asthma: Yes ( CHILD-NO MEDS STABLE) Cancer: No Cardiac Disorders: Yes (CHF) CVA: No COPD: Yes CHF: Yes DVT: Yes Dementia: No Diabetes: No GI Disorders: Yes (GERD) Disorders: No HTN: Yes Hypercholesterolemia: No Liver Disease: No Psychiatric Problems: Yes (Major depressive disorder) Seizures: No Thyroid Disease: No - Surgical History Abdominal Surgery: No Appendectomy: No Cardiac Surgery: No Cholecystectomy: No Lung Surgery: No Neurologic Surgery: No Orthopedic Surgery: No (l knee torn meniscus repair in [facility] 2013 ) - Suicide/Smoking/Psychosocial Hx Smoking History: Former smoker Have you smoked in the past 12 months: No Number of Cigarettes Smoked Daily: 10 If you are a former smoker, when did you quit?: 2018 Cigars Per Day: 0 Information on smoking cessation initiated: No 'Breaking Loose' booklet given: 04/30/18 Hx Alcohol Use: No Drug/Substance Use Hx: No Substance Use Type: None Hx Substance Use Treatment: No <Kris Devine - Last Filed: 05/25/19 11:02> - Past Medical History Allergies/Adverse Reactions: Allergies Allergy/AdvReac Type Severity Reaction Status Date / Time pistachio nut Allergy Verified 05/18/19 11:38 Home Medications: Ambulatory Orders Acetaminophen 500 mg PO Q6H PRN 04/04/19 Albuterol 2.5/Ipratropium 0.5 [Duoneb -] 1 amp NEB PRN PRN 04/04/19 Calcium Carbonate [Tums] 200 mg PO BID PRN 04/04/19 Enoxaparin [Lovenox -] 40 mg SQ DAILY 04/04/19 Ergocalciferol [Vitamin D2] 50,000 unit PO WEEKLY 04/04/19 Escitalopram Oxalate [Lexapro -] 10 mg PO DAILY 04/04/19 Gabapentin [Neurontin] 100 mg PO TID 04/04/19 Liraglutide [Victoza -] 0.6 mg SQ DAILY 04/04/19 Mag Hydrox/Al Hydrox/Simeth [Mylanta Oral Suspension -] 15 ml PO TID PRN Magnesium Hydroxide [Milk of Magnesia] 30 ml PO DAILY PRN 04/04/19 Metoprolol Succinate 25 mg PO DAILY 04/04/19 Ranitidine [Zantac -] 150 mg PO BID 04/04/19 Spironolactone [Aldactone] 25 mg PO DAILY 04/04/19 Telmisartan [Micardis] 80 mg PO DAILY 04/04/19 Vit C/Dietary Supplement No.18 500 mg PO DAILY 05/13/19 Zinc Oxide 20% Topical Oint 1 applic TD DAILY 05/13/19 Atorvastatin Ca [Lipitor] 20 mg PO HS tablet 05/22/19 Chlorhexidine Gluconate [Hibiclens For Decolonization -] 1 applic TP HS bottle 05/22/19 Clotrimazole [Lotrimin -] 1 applic TP BID tube 05/22/19 Polyethylene Glycol 3350 [Miralax 119 gm Btl -] 17 gm PO DAILY bottle 05/22/19 Sodium Chloride Nasal [place] [[place] Nasal [place] -] 2 spray NS BID PRN spray 05/22/19 Review of Systems - Review of Systems Able to Perform ROS?: No (AMS) <Kris Devine - Last Filed: 05/25/19 11:02> *Physical Exam - Vital Signs Last Vital Signs Temp Pulse Resp BP Pulse Ox 99 F 81 19 99/66 93 L 05/13/19 12:18 05/13/19 14:38 05/13/19 15:00 05/13/19 14:38 05/13/19 14:38 <AlaynaSedrick - Last Filed: 05/13/19 15:49> - Vital Signs Last Vital Signs Temp Pulse Resp BP Pulse Ox 88 21 H 109/74 91 L 05/13/19 12:02 05/13/19 12:00 05/13/19 12:00 05/13/19 12:02 - Physical Exam Comments: PE: GENERAL: Awake, alert, and oriented to person/place/time, somnolence, obese HEAD: No signs of trauma, normocephalic, atraumatic EYES: PERRLA, EOMI, sclera anicteric, conjunctiva clear ENT: Auricles normal inspection, hearing grossly normal, nares patent, oropharynx clear without exudates. Moist mucosa NECK: Normal ROM, supple, no lymphadenopathy, JVD, or masses LUNGS: Mild distress, speaks short 1-2 word sentences, lungs clear to ausculation bilaterally (distant sounds given body habitus) HEART: Regular rate and rhythm, normal S1 and S2, no murmurs, rubs or gallops, peripheral pulses normal and equal bilaterally. ABDOMEN: Soft, nontender, normoactive bowel sounds. No guarding, no rebound. No masses EXTREMITIES : Normal inspection, Normal range of motion, no edema. No clubbing or cyanosis. SKIN: Pale. Warm, Dry, normal turgor, no rashes or lesions noted <Kris Devine - Last Filed: 05/25/19 11:02> Procedures - Intubation Time of Intubation: 15:50 Intubation Method: orotracheal Blade used: Mac Tube Size (Fr): 7.5 Medications: Etomidate, Succinylcholine Tube position @ lip (cm): 22 Tube position confirmed by: Direct visualization, CO2 detector, Chest x-ray, Breath sounds Breath Sounds after Intubation: equal Intubation Complications: no complications Post Intubation Xray: Yes <AlaynaSedrick - Last Filed: 05/13/19 15:49> ED Treatment Course - LABORATORY CBC & Chemistry Diagram: 05/13/19 11:25 05/13/19 11:25 - ADDITIONAL ORDERS Additional order review: Laboratory Results 05/13/19 05/13/1919 14:01 13:05 12:59 PT with INR INR PTT (Actin FS) Anticoagulation Therapy No Result Required. No Result Required. Puncture Site Left radial Left radial ABG pH 7.14 L* 7.19 L* ABG pCO2 at Pt Temp > 100 H* > 100 H* ABG pO2 at Pt Temp 57.1 L 70 L ABG HCO3 No Result Required. 0 L ABG O2 Sat (Measured) 80.0 L 89.5 L ABG O2 Content 14.7 L 15.6 ABG Base Excess No Result Required. 0 Neto Test Positive Positive Carboxyhemoglobin Methemoglobin O2 Delivery Device No Result Required. No Result Required. Oxygen Flow Rate Yes No Result Required. Vent Mode No Result Required. No Result Required. Vent Rate No Result Required. No Result Required. Mechanical Rate No Result Required. No Result Required. Pressure Support Vent No Result Required. No Result Required. Sodium Potassium Chloride Carbon Dioxide Anion Gap BUN Creatinine Est GFR (CKD-EPI)AfAm Est GFR (CKD-EPI)NonAf Random Glucose Lactic Acid Calcium Total Bilirubin AST ALT Alkaline Phosphatase Troponin I Total Protein Albumin Urine Color Yellow Urine Appearance Cloudy Urine pH 5.0 Ur Specific Rice 1.020 Urine Protein Trace Urine Glucose (UA) Negative Urine Ketones Negative Urine Blood Negative Urine Nitrite Negative Urine Bilirubin Negative Urine Urobilinogen 1.0 Ur Leukocyte Esterase 1+ H Urine WBC (Auto) 13 Urine RBC (Auto) 0 Urine Casts (Auto) 83 U Epithel Cells (Auto) 16.9 Urine Bacteria (Auto) 2654.7 05/13/19 05/13/19 05/13/19 12:37 11:28 11:25 PT with INR Cancelled INR Cancelled PTT (Actin FS) Anticoagulation Therapy Puncture Site ABG pH ABG pCO2 at Pt Temp ABG pO2 at Pt Temp ABG HCO3 ABG O2 Sat (Measured) ABG O2 Content ABG Base Excess Neto Test Carboxyhemoglobin 2.6 H Methemoglobin 0.5 O2 Delivery Device Oxygen Flow Rate Vent Mode Vent Rate Mechanical Rate Pressure Support Vent Sodium Potassium Chloride Carbon Dioxide Anion Gap BUN Creatinine Est GFR (CKD-EPI)AfAm Est GFR (CKD-EPI)NonAf Random Glucose Lactic Acid 0.6 Calcium Total Bilirubin AST ALT Alkaline Phosphatase Troponin I Total Protein Albumin Urine Color Urine Appearance Urine pH Ur Specific Rice Urine Protein Urine Glucose (UA) Urine Ketones Urine Blood Urine Nitrite Urine Bilirubin Urine Urobilinogen Ur Leukocyte Esterase Urine WBC (Auto) Urine RBC (Auto) Urine Casts (Auto) U Epithel Cells (Auto) Urine Bacteria (Auto) 05/13/19 05/13/19 05/13/19 11:25 11:25 11:20 PT with INR 13.20 H INR 1.12 H PTT (Actin FS) 39.5 H Anticoagulation Therapy No Result Required. Puncture Site No Result Required. ABG pH 7.21 L ABG pCO2 at Pt Temp > 100 H* ABG pO2 at Pt Temp 50.6 L ABG HCO3 0 L ABG O2 Sat (Measured) 75.4 L ABG O2 Content 15.6 ABG Base Excess 0 Neto Test No Result Required. Carboxyhemoglobin Methemoglobin O2 Delivery Device No Result Required. Oxygen Flow Rate No Result Required. Vent Mode No Result Required. Vent Rate No Result Required. Mechanical Rate No Result Required. Pressure Support Vent No Result Required. Sodium 139 Potassium 5.2 H Chloride 95 L Carbon Dioxide 41 H Anion Gap 2 L BUN 39.2 H Creatinine 1.1 Est GFR (CKD-EPI)AfAm 87.13 Est GFR (CKD-EPI)NonAf 75.17 Random Glucose 109 H Lactic Acid Calcium 8.8 Total Bilirubin 0.3 AST 6 L ALT 14 Alkaline Phosphatase 84 Troponin I < 0.02 Total Protein 6.3 L Albumin 2.7 L Urine Color Urine Appearance Urine pH Ur Specific Rice Urine Protein Urine Glucose (UA) Urine Ketones Urine Blood Urine Nitrite Urine Bilirubin Urine Urobilinogen Ur Leukocyte Esterase Urine WBC (Auto) Urine RBC (Auto) Urine Casts (Auto) U Epithel Cells (Auto) Urine Bacteria (Auto) 05/13/19 11:25 RBC 4.39 MCV 90.3 MCHC 30.7 L RDW 19.4 H MPV 6.8 L Neutrophils % 86.1 H Lymphocytes % 8.6 D Monocytes % 4.1 D Eosinophils % 0.3 D Basophils % 0.9 D - RADIOLOGY Radiology Studies Ordered: Category Date Time Status CHEST X-RAY PORTABLE* [RAD] Stat Radiology 05/13/19 11:02 Completed - Medications Given in the ED: ED Medications Discontinued Medications Generic Name Dose Route Start Last Admin Trade Name Freq PRN Reason Stop Dose Admin Albuterol/Ipratropium 3 amp 05/13/19 11:29 05/13/19 11:32 Duoneb - NEB 05/13/19 11:30 3 amp ONCE ONE Administration Etomidate 20 mg 05/13/19 15:16 05/13/19 15:20 Amidate - IVPUSH 05/13/19 15:17 20 mg ONCE ONE Administration Fentanyl 100 mcg 05/13/19 15:30 05/13/19 15:39 Sublimaze Injection - IVPUSH 05/13/19 15:31 100 mcg ONCE ONE Administration Piperacillin Sod/Tazobactam 100 mls @ 200 mls/hr 05/13/19 11:36 05/13/19 12: 20 Sod 4.5 gm/ Dextrose IVPB 05/13/19 12:05 200 mls/hr ONCE ONE Administration Protocol Vancomycin HCl 1,500 mg/ 500 mls @ 250 mls/hr 05/13/19 11:37 05/13/19 12:13 Dextrose IVPB 05/13/19 13:36 250 mls/hr ONCE ONE Administration Propofol 1,000,000 mcg in 100 mls @ 5.715 mls/hr 05/13/19 15:15 05/13/19 15: 37 Diprivan - IVPB 15 mcg/kg/min TITR MINDI 17.146 mls/hr Titration Protocol 5 MCG/KG/MIN Methylprednisolone Sodium Succinate 125 mg 05/13/19 11:30 05/13/19 11:57 Solu-Medrol - IVPUSH 05/13/19 11:31 125 mg ONCE ONE Administration Propofol 40,000 mcg 05/13/19 15:14 05/13/19 15:25 Diprivan - IVPUSH 05/13/19 15:15 40,000 mcg ONCE ONE Administration Succinylcholine Chloride 170 mg 05/13/19 15:16 05/13/19 15:20 Quelicin - IVPUSH 05/13/19 15:17 170 mg ONCE ONE Administration <Sedrick Catalan - Last Filed: 05/13/19 15:49> - LABORATORY CBC & Chemistry Diagram: 05/19/19 05:30 05/20/19 05:25 - Medications Given in the ED: ED Medications Discontinued Medications Generic Name Dose Route Start Last Admin Trade Name Freq PRN Reason Stop Dose Admin Albuterol/Ipratropium 3 amp 05/13/19 11:29 05/13/19 11:32 Duoneb - NEB 05/13/19 11:30 3 amp ONCE ONE Administration Methylprednisolone Sodium Succinate 125 mg 05/13/19 11:30 05/13/19 11:57 Solu-Medrol - IVPUSH 05/13/19 11:31 125 mg ONCE ONE Administration <Kris Devine - Last Filed: 05/25/19 11:02> Medical Decision Making - Medical Decision Making 54 y/o M with hx COPD, CHF, morbid obesity, prior hypoxic hypercapnic respiratory failure p/w fever, AMS, hypoxia, most consistent with hypoxic respiratory failure secondary to COPD exacerbation vs sepsis. Plan: Sepsis order set Duonebs, solumedrol CBC CMP Lactate Blood cultures Type/Screen PT/INR, PTT CXR EKG Bipap (initial settings - 20 IPAP, 8 EPAP) Reassessment for possible intubation if no improvement of hypoxia, mental status Dispo: Admit, likely ICU --- On reassessment, patient no longer responsive to verbal stimuli. Responsive to painful stimuli. O2% improving with bipap --- CXR notable for infiltrates, abx initiated --- Given declining O2%, worsening AMS, plan for intubation. --- Patient intubated by Dr. Catalan - 100 succ, 20 etomidate. ET Tube placed via bougie, confirmed by physical exam and CXR. Fentanyl bolus, drip ordered for sedation. Discussed case with Mr. Rosario's sons who arrived shortly after the intubation. Plan for ICU admission. <Kris Devine - Last Filed: 05/25/19 11:02> *DC/Admit/Observation/Transfer <Sedrick Catalan - Last Filed: 05/13/19 15:49> - Discharge Dispostion Decision to Admit order: Yes <Kris Devine - Last Filed: 05/25/19 11:02> Diagnosis at time of Disposition: Acute respiratory failure with hypoxia and hypercarbia - Discharge Dispostion Condition at time of disposition: Guarded
[2019-05-13 12:14] LABS: ALBUMIN 2.7 g/dl (3.4-5.0); ALK PHOS 84 U/L (45-117); ANION GAP 2 MMOL/L (8-16); BILIRUBIN,TOTAL 0.3 mg/dL (0.2-1); BLOOD UREA NITROGEN 39.2 mg/dL (7-18); CALCIUM 8.8 mg/dL (8.5-10.1); CHLORIDE 95 mmol/L (98-107); CO2 41 mmol/L (21-32); CREATININE 1.1 mg/dL (0.55-1.3); GLUCOSE,RANDOM 109 mg/dL (74-106); POTASSIUM 5.2 mmol/L (3.5-5.1); SGOT/AST 6 U/L (15-37); SGPT/ALT 14 U/L (13-61); SODIUM 139 mmol/L (136-145); TOT PROT 6.3 g/dl (6.4-8.2)
[2019-05-13] MEDS ORDERED: PIPERACILLIN/TAZOB 4.5 GM 4.5 GM/100 ML BAG IVPB ONE (12:22)
[2019-05-13 12:30] LABS: ACTIVATED PTT 39.5 SECONDS (25.2-36.5)
[2019-05-13 12:33] LABS: ARTERIAL BLD GAS O2 SATURATION 75.4 % (95-98); ARTERIAL BLOOD GAS pH 7.21 (7.35-7.45)
[2019-05-13 12:38] LABS: ARTERIAL BLOOD GAS PO2 50.6 mmHg (80-105)
[2019-05-13 12:40] LABS: ARTERIAL BLOOD GAS BASE EXCESS 0 meq/l (-2-2)
[2019-05-13 12:43] LABS: ARTERIAL BLOOD GAS PCO2 > 100 mmHg (35-45)
[2019-05-13 12:54] LABS: CARBOXYHEMOGLOBIN 2.6 % (0-2)
[2019-05-13 13:03] LABS: ARTERIAL BLOOD GAS PO2 70 mmHg (80-105)
[2019-05-13 13:04] LABS: ALLENS TEST POSITIVE; ARTERIAL BLD GAS O2 SATURATION 89.5 % (95-98); ARTERIAL BLOOD GAS BASE EXCESS 0 meq/l (-2-2)
[2019-05-13 13:05] LABS: ARTERIAL BLOOD GAS PCO2 > 100 mmHg (35-45); ARTERIAL BLOOD GAS pH 7.19 (7.35-7.45)
[2019-05-13 13:41] LABS: EPI CELLS 16.9 /HPF (0-5/HPF); HYALINE CASTS 83 /lpf (0-8); URINE APPEARANCE CLOUDY; URINE BACTERIA 2654.7 /hpf (NEGATIVE); URINE BILIRUBIN NEGATIVE (NEGATIVE); URINE COLOR YELLOW; URINE GLUCOSE (UA) NEGATIVE (NEGATIVE); URINE KETONE NEGATIVE (NEGATIVE); URINE LEUK ESTERASE 1+ (NEGATIVE); URINE NITRITE NEGATIVE (NEGATIVE); URINE PROTEIN TRACE (NEGATIVE); URINE RBC 0 /hpf (0-4); URINE WBC 13 /hpf (0-5)
[2019-05-13 14:09] LABS: INR 1.12 (0.83-1.09); PROTHROMBIN TIME (PATIENT) 13.2 SEC (9.7-13.0)
[2019-05-13 14:32] LABS: ARTERIAL BLOOD GAS PO2 57.1 mmHg (80-105)
[2019-05-13 14:33] LABS: ALLENS TEST POSITIVE
[2019-05-13 14:34] LABS: ARTERIAL BLOOD GAS pH 7.14 (7.35-7.45)
[2019-05-13 14:40] LABS: ARTERIAL BLOOD GAS PCO2 > 100 mmHg (35-45)
[2019-05-13] MEDS ORDERED: RAPID SEQUENCE INTUBATION KIT NR ONE (14:49)
[2019-05-13] MEDS ORDERED: KETAMINE HCL 500 MG/10 ML VIAL ONE (14:56)
[2019-05-13] MEDS ORDERED: diazePAM 2.5 MG PEDIATRIC RECTAL APP GEL RC ONE (15:06)
[2019-05-13] MEDS ORDERED: PROPOFOL 1,000,000 MCG/100 ML VIAL ONE (15:14)
[2019-05-13] MEDS ORDERED: PROPOFOL 200 MG/20 ML VIAL IVPUSH ONE (15:14)
[2019-05-13] MEDS ORDERED: PROPOFOL 1,000,000 MCG/100 ML VIAL IVPB SCH (15:15)
[2019-05-13] MEDS ORDERED: ETOMIDATE 20 MG/10 ML AMPUL IVPUSH ONE (15:16)
[2019-05-13] MEDS ORDERED: SUCCINYLCHOLINE CHLORIDE 200 MG/10 ML VIAL IVPUSH ONE (15:16)
[2019-05-13] MEDS ORDERED: MIDAZOLAM IN 0.9 % SOD.CHLORID 1 MG/1 ML PLAST..BAG ONE (15:27)
--- NOTE | 2019-05-13 15:33 | HP ---
Admitting History and Physical - Primary Care Physician PCP: Tanvi Puga - Admission Chief Complaint: respiratory failure History of Present Illness: Satya Rosario is a 54 year old with a past medical history of COPD, OHS, RANJIT, HTN, CHF (last echo in March showing normal EF), GERD, MDD who presented from [facility] where he was noted to be in his usual state of health until last night. All history obtained from [facility] as patient intubated and unable to provide history. Patient was noted to not be using his CPAP on a nightly basis due complaints of it being uncomfortable, he also was refusing O2 NC during the day. Last night, the patient was noted to be more lethargic than usual but was able to be roused for dinner and medications. This morning, the patient was more lethargic, unable to answer questions, and not oriented. He was febrile to 101.5, BP 147/73, tachycardic to 120s, RR of 25, and was satting 77-80% on 2L O2. He was given an albuterol treatment and continued to have low O2 saturation. longterm staff stated that he only had recent complaints of shortness of breath for which he was receiving treatments. Denied recent sick contacts, denied cough, chest pain, fever, chills, abdominal pain, nausea, vomiting, headaches, dizziness, lightheadedness. Recently completed antibiotic course on 05/04 for UTI, was refusing f/u urine analysis. In the ED, the patient was placed on BiPAP, given 3 amps of Duoneb, 125mg of Solumedrol, Zosyn and Vancomycin. Original ABG showed pH 7.21, CO2 >100, O2 50.6 without biPAP. Subsequent ABGs showed worsening of acidosis down to 7.14 with continued hypercapneia and hypoxia. He was becoming more lethargic and at one point not withdrawing to painful stimuli. Decision was made to intubate as the patient was not alert and oriented enough to comply with the Bilevel and he was intubated and sedated with propofol. History Source: Medical Record Limitations to Obtaining History: Clinical Condition - Past Medical History Cardiovascular: Yes: CHF, Pulmonary Hypertension Pulmonary: Yes: COPD, O2 Dependent - Smoking History Smoking history: Former smoker Have you smoked in the past 12 months: No Aproximately how many cigarettes per day: 10 If you are a former smoker, when did you quit?: 2018 - Alcohol/Substance Use Hx Alcohol Use: No - Social History Occupation: on disability, [employer] patient Home Medications - Allergies Allergies/Adverse Reactions: Allergies Allergy/AdvReac Type Severity Reaction Status Date / Time pistachio nut Allergy Verified 05/13/19 10:44 - Home Medications Home Medications: Ambulatory Orders Acetaminophen 500 mg PO Q6H PRN 04/04/19 Albuterol 2.5/Ipratropium 0.5 [Duoneb -] 1 amp NEB PRN PRN 04/04/19 Calcium Carbonate [Tums] 200 mg PO BID PRN 04/04/19 Enoxaparin [Lovenox -] 40 mg SQ DAILY 04/04/19 Ergocalciferol [Vitamin D2] 50,000 unit PO WEEKLY 04/04/19 Escitalopram Oxalate [Lexapro -] 10 mg PO DAILY 04/04/19 Gabapentin [Neurontin] 100 mg PO TID 04/04/19 Liraglutide [Victoza -] 0.6 mg SQ DAILY 04/04/19 Mag Hydrox/Al Hydrox/Simeth [Mylanta Oral Suspension -] 15 ml PO TID PRN Magnesium Hydroxide [Milk of Magnesia] 30 ml PO DAILY PRN 04/04/19 Metoprolol Succinate 25 mg PO DAILY 04/04/19 Ranitidine [Zantac -] 150 mg PO BID 04/04/19 Spironolactone [Aldactone] 25 mg PO DAILY 04/04/19 Telmisartan [Micardis] 80 mg PO DAILY 04/04/19 Mag Hydrox/Al Hydrox/Simeth [Mylanta Oral Suspension -] 30 ml PO Q6H PRN cup Vit C/Dietary Supplement No.18 500 mg PO DAILY 05/13/19 Zinc Oxide 20% Topical Oint 1 applic TD DAILY 05/13/19 Family Disease History - Family Disease History Family History: Unable to Obtain Review of Systems Unable to obtain ROS, reason: pt somolent Physical Examination Vital Signs: Vital Signs Temperature 99 F 05/13/19 12:18 Pulse Rate 81 05/13/19 14:38 Respiratory Rate 19 05/13/19 15:00 Blood Pressure 99/66 05/13/19 14:38 O2 Sat by Pulse Oximetry (%) 93 L 05/13/19 14:38 Constitutional: Yes: Severe Distress, Other (morbidly obese) Eyes: Yes: WNL, Conjunctiva Clear, EOM Intact HENT: Yes: WNL, Atraumatic, Normocephalic Neck: Yes: Other (excoraited skin noted under neck folds) Cardiovascular: Yes: WNL, Tachycardia Respiratory: Yes: WNL, Regular Gastrointestinal: Yes: Abdomen, Obese Breast(s): Yes: WNL Musculoskeletal: Yes: Other (not able to assess) Extremities: Yes: Erythema, Other (to LE) Edema: Yes Edema: LUE: 2+, RUE: 2+, LLE: 2+, RLE: 2+ Peripheral Pulses: Left Radial: 1+, Right Radial: 1+, Left Doralis Pedis: 1+, Right Dorsalis Pedis: 1+, Left Femoral: 1+, Right Femoral: 1+ Integumentary: Yes: Erythema Neurological: Yes: Other (resposive to deep stimuli) ...Motor Strength: LUE, LLE, RUE, RLE (not able to assess, some spontaneous monvement) Psychiatric: Yes: Other (somolent) Labs: CBC, BMP 05/13/19 11:25 05/13/19 11:25 Imaging - Results Chest X-ray: Report Reviewed, Image Reviewed (Increased PVC & left upper lobe infiltarte with BL acelectasis) EKG: Report Reviewed Problem List - Problems (1) Acute on chronic respiratory failure with hypoxia and hypercapnia Code(s): J96.21 - ACUTE AND CHRONIC RESPIRATORY FAILURE WITH HYPOXIA; J96.22 - ACUTE AND CHRONIC RESPIRATORY FAILURE WITH HYPERCAPNIA (2) COPD exacerbation Code(s): J44.1 - CHRONIC OBSTRUCTIVE PULMONARY DISEASE W (ACUTE) EXACERBATION (3) Obesity hypoventilation syndrome Code(s): E66.2 - MORBID (SEVERE) OBESITY WITH ALVEOLAR HYPOVENTILATION (4) Morbid obesity Code(s): E66.01 - MORBID (SEVERE) OBESITY DUE TO EXCESS CALORIES (5) RANJIT (obstructive sleep apnea) Code(s): G47.33 - OBSTRUCTIVE SLEEP APNEA (ADULT) (PEDIATRIC) (6) COPD (chronic obstructive pulmonary disease) Code(s): J44.9 - CHRONIC OBSTRUCTIVE PULMONARY DISEASE, UNSPECIFIED (7) HTN (hypertension) Code(s): I10 - ESSENTIAL (PRIMARY) HYPERTENSION (8) GERD (gastroesophageal reflux disease) Code(s): K21.9 - GASTRO-ESOPHAGEAL REFLUX DISEASE WITHOUT ESOPHAGITIS (9) longterm resident Code(s): Z59.3 - PROBLEMS RELATED TO LIVING IN RESIDENTIAL INSTITUTION Assessment/Plan ASSESSMENT/PLAN: Satya Rosario is a 54 year old with a past medical history of COPD, OHS, RANJIT, HTN, CHF (last echo in March showing normal EF), GERD, MDD who is admitted to the ICU for acute on chronic hypercapneic hypoxic respiratory failure secondary to long-standing COPD, OHS, RANJIT, and non-compliance with home oxygen therapy and nightly CPAP. Acute on chronic hypercapneic hypoxic respiratory failure COPD OHS RANJIT HTN GERD NEUROLOGIC somolent-in prep to be intubated CARDIOLOGY - last echo 04/14 showing normal EF, normal left ventricle function and size - hold beta phuong in acute COPD exacerbation - troponins negative - BNP ordered - restart spironolactone tomorrow if pressures stable, hold if worsening of hyperkalemia - on terlipressin, non-formulary, holding BP meds in setting of lower pressures , can restart if BPs increase RESPIRATORY - on Bipap- will be intubated - PFTs performed in March showing patient with severe airway obstructive disease , severe restrictive disease, and severe diffusion deficit - ABGs showing continued acute on chronic hypercapneic hypoxic process - repeat ABG showing pH 7.36, CO2 72.8, O2 62.4, improving - continue to monitor serial ABGs to assess for improvement and optimization of vent settings - given duonebs and solumedrol in ED - continue Solumedrol 60mg IV bid, titrate as necessary - CXR showing widened mediastinum, essentially unchanged since previous admission - questionable PNA process RENAL - FAITH, today 1.1, baseline 0.8 - avoid overhydration due to hx of CHF - hyperkalemia 5.2 noted, on spironolactone, given 3 amps of Duonebs, repeat BMP GASTROINTESTINAL - Protonix 40mg bid prophylaxis while intubated - hold home ranitidine while on protonix INFECTIOUS DISEASE - febrile 101.5 at fpc - WBC 11.9 - hx of PNA, concern for HAP - given vancomycin and Zosyn in ED - continue Zosyn 4.5gm q6h - blood cxs pending - urine cxs pending - Legionella and strep urine antigens - sputum cxs - continue to monitor for signs of infection, WBC, fevers - ID consulted HEMATOLOGY - no acute issues PSYCHIATRIC - continue home Lexapro 10mg to avoid discontinuation syndrome F/E/N - no standing fluids - continue to monitor electrolytes and replete as necessary - NPO while intubated PROPHYLAXIS - on Lovenox 40mg subq bid - protonix 40mg IV bid while intubated CODE - full code DISPO - continue to monitor in ICU Appreciate ICU level of care Visit type - Emergency Visit Emergency Visit: Yes ED Registration Date: 05/13/19 Care time: The patient presented to the Emergency Department on the above date and was hospitalized for further evaluation of their emergent condition. - New Patient This patient is new to me today: Yes Date on this admission: 05/13/19 - Critical Care Critical Care patient: Yes Total Critical Care Time (in minutes): 45 Critical Care Statement: The care of this patient involved high complexity decision making to prevent further life threatening deterioration of the patient 's condition and/or to evaluate & treat vital organ system(s) failure or risk of failure.
--- NOTE | 2019-05-13 15:41 | CONSULT ---
Consultation: REQUESTING PROVIDER: Dr. Martinez CONSULT REQUEST: We have been asked to medically evaluate this patient for acute hypercapneic hypoxic respiratory failure. HISTORY OF PRESENT ILLNESS: Satya Rosario is a 54 year old with a past medical history of COPD, OHS, RANJIT, HTN, CHF (last echo in March showing normal EF), GERD, MDD who presented from [facility] where he was noted to be in his usual state of health until last night. All history obtained from [facility] as patient intubated and unable to provide history. Patient was noted to not be using his CPAP on a nightly basis due complaints of it being uncomfortable, he also was refusing O2 NC during the day. Last night, the patient was noted to be more lethargic than usual but was able to be roused for dinner and medications. This morning, the patient was more lethargic, unable to answer questions, and not oriented. He was febrile to 101.5, BP 147/73, tachycardic to 120s, RR of 25, and was satting 77-80% on 2L O2. He was given an albuterol treatment and continued to have low O2 saturation. assisted staff stated that he only had recent complaints of shortness of breath for which he was receiving treatments. Denied recent sick contacts, denied cough, chest pain, fever, chills, abdominal pain, nausea, vomiting, headaches, dizziness, lightheadedness. Recently completed antibiotic course on 05/04 for UTI, was refusing f/u urine analysis. In the ED, the patient was placed on BiPAP, given 3 amps of Duoneb, 125mg of Solumedrol, Zosyn and Vancomycin. Original ABG showed pH 7.21, CO2 >100, O2 50.6 without biPAP. Subsequent ABGs showed worsening of acidosis down to 7.14 with continued hypercapneia and hypoxia. He was becoming more lethargic and at one point not withdrawing to painful stimuli. Decision was made to intubate as the patient was not alert and oriented enough to comply with the Bilevel and he was intubated and sedated with propofol. Allergies: pistachios Social History: former smoker Family History: unable to obtain due to intubated status REVIEW OF SYSTEMS: Unable to obtain due to patient's intubated status. PHYSICAL EXAMINATION Vital Signs - 24 hr 05/13/19 05/13/19 05/13/19 11:06 12:00 12:02 Temperature Pulse Rate 118 H 88 Pulse Rate [ 88 Apical] Respiratory 25 H 21 H Rate Blood Pressure 98/50 L Blood Pressure 109/74 [Right Arm] O2 Sat by Pulse 95 88 L 91 L Oximetry (%) 05/13/19 05/13/19 05/13/19 12:18 12:40 12:47 Temperature 99 F Pulse Rate Pulse Rate [ Apical] Respiratory Rate Blood Pressure Blood Pressure [Right Arm] O2 Sat by Pulse 90 L 94 L Oximetry (%) 05/13/19 05/13/19 14:38 15:00 Temperature Pulse Rate Pulse Rate [ 81 Apical] Respiratory 23 H 19 Rate Blood Pressure Blood Pressure 99/66 [Right Arm] O2 Sat by Pulse 93 L Oximetry (%) GENERAL: Intubated and sedated HEAD: Normal with no signs of trauma. EYES: Pupils equal, round and reactive to light, sclera anicteric, conjunctiva clear. NECK: Normal range of motion, no JVD. Dermatitis like rash under chin. LUNGS: Breath sounds equal, decreased bilaterally, mechanical breath sounds. No noted wheezes and no crackles. No accessory muscle use. HEART: Heart sounds distant, Regular rate and rhythm, normal S1 and S2 without murmur, rub. ABDOMEN: Obese, Soft, nontender, not distended, normoactive bowel sounds. UPPER EXTREMITIES: 2+ pulses, warm, well-perfused. No cyanosis. No clubbing. Cap refill <2 seconds. No peripheral edema. LOWER EXTREMITIES: 2+ pulses, warm, well-perfused. No peripheral edema. NEUROLOGICAL: Pupils reactive, occasional purposeful movement. Withdraws and grimace to pain. Laboratory Results - last 24 hr 05/13/19 05/13/19 05/13/19 11:20 11:25 11:25 WBC 11.9 H RBC 4.39 Hgb 12.2 Hct 39.6 MCV 90.3 MCH 27.8 MCHC 30.7 L RDW 19.4 H Plt Count 286 D MPV 6.8 L Absolute Neuts (auto) 10.2 H Neutrophils % 86.1 H Lymphocytes % 8.6 D Monocytes % 4.1 D Eosinophils % 0.3 D Basophils % 0.9 D Nucleated RBC % 1 H PT with INR 13.20 H INR 1.12 H PTT (Actin FS) 39.5 H Anticoagulation Therapy No Result Required. Puncture Site No Result Required. ABG pH 7.21 L ABG pCO2 at Pt Temp > 100 H* ABG pO2 at Pt Temp 50.6 L ABG HCO3 0 L ABG O2 Sat (Measured) 75.4 L ABG O2 Content 15.6 ABG Base Excess 0 Neto Test No Result Required. Carboxyhemoglobin Methemoglobin O2 Delivery Device No Result Required. Oxygen Flow Rate No Result Required. Vent Mode No Result Required. Vent Rate No Result Required. Mechanical Rate No Result Required. Pressure Support Vent No Result Required. Sodium Potassium Chloride Carbon Dioxide Anion Gap BUN Creatinine Est GFR (CKD-EPI)AfAm Est GFR (CKD-EPI)NonAf Random Glucose Lactic Acid Calcium Total Bilirubin AST ALT Alkaline Phosphatase Troponin I Total Protein Albumin Urine Color Urine Appearance Urine pH Ur Specific [place] Urine Protein Urine Glucose (UA) Urine Ketones Urine Blood Urine Nitrite Urine Bilirubin Urine Urobilinogen Ur Leukocyte Esterase Urine WBC (Auto) Urine RBC (Auto) Urine Casts (Auto) U Epithel Cells (Auto) Urine Bacteria (Auto) 05/13/19 05/13/19 05/13/19 11:25 11:25 11:28 WBC RBC Hgb Hct MCV MCH MCHC RDW Plt Count MPV Absolute Neuts (auto) Neutrophils % Lymphocytes % Monocytes % Eosinophils % Basophils % Nucleated RBC % PT with INR Cancelled INR Cancelled PTT (Actin FS) Anticoagulation Therapy Puncture Site ABG pH ABG pCO2 at Pt Temp ABG pO2 at Pt Temp ABG HCO3 ABG O2 Sat (Measured) ABG O2 Content ABG Base Excess Neto Test Carboxyhemoglobin Methemoglobin O2 Delivery Device Oxygen Flow Rate Vent Mode Vent Rate Mechanical Rate Pressure Support Vent Sodium 139 Potassium 5.2 H Chloride 95 L Carbon Dioxide 41 H Anion Gap 2 L BUN 39.2 H Creatinine 1.1 Est GFR (CKD-EPI)AfAm 87.13 Est GFR (CKD-EPI)NonAf 75.17 Random Glucose 109 H Lactic Acid 0.6 Calcium 8.8 Total Bilirubin 0.3 AST 6 L ALT 14 Alkaline Phosphatase 84 Troponin I < 0.02 Total Protein 6.3 L Albumin 2.7 L Urine Color Urine Appearance Urine pH Ur Specific [place] Urine Protein Urine Glucose (UA) Urine Ketones Urine Blood Urine Nitrite Urine Bilirubin Urine Urobilinogen Ur Leukocyte Esterase Urine WBC (Auto) Urine RBC (Auto) Urine Casts (Auto) U Epithel Cells (Auto) Urine Bacteria (Auto) 05/13/19 05/13/19 05/13/19 12:37 12:59 13:05 WBC RBC Hgb Hct MCV MCH MCHC RDW Plt Count MPV Absolute Neuts (auto) Neutrophils % Lymphocytes % Monocytes % Eosinophils % Basophils % Nucleated RBC % PT with INR INR PTT (Actin FS) Anticoagulation Therapy No Result Required. Puncture Site Left radial ABG pH 7.19 L* ABG pCO2 at Pt Temp > 100 H* ABG pO2 at Pt Temp 70 L ABG HCO3 0 L ABG O2 Sat (Measured) 89.5 L ABG O2 Content 15.6 ABG Base Excess 0 Neto Test Positive Carboxyhemoglobin 2.6 H Methemoglobin 0.5 O2 Delivery Device No Result Required. Oxygen Flow Rate No Result Required. Vent Mode No Result Required. Vent Rate No Result Required. Mechanical Rate No Result Required. Pressure Support Vent No Result Required. Sodium Potassium Chloride Carbon Dioxide Anion Gap BUN Creatinine Est GFR (CKD-EPI)AfAm Est GFR (CKD-EPI)NonAf Random Glucose Lactic Acid Calcium Total Bilirubin AST ALT Alkaline Phosphatase Troponin I Total Protein Albumin Urine Color Yellow Urine Appearance Cloudy Urine pH 5.0 Ur Specific [place] 1.020 Urine Protein Trace Urine Glucose (UA) Negative Urine Ketones Negative Urine Blood Negative Urine Nitrite Negative Urine Bilirubin Negative Urine Urobilinogen 1.0 Ur Leukocyte Esterase 1+ H Urine WBC (Auto) 13 Urine RBC (Auto) 0 Urine Casts (Auto) 83 U Epithel Cells (Auto) 16.9 Urine Bacteria (Auto) 2654.7 05/13/19 14:01 WBC RBC Hgb Hct MCV MCH MCHC RDW Plt Count MPV Absolute Neuts (auto) Neutrophils % Lymphocytes % Monocytes % Eosinophils % Basophils % Nucleated RBC % PT with INR INR PTT (Actin FS) Anticoagulation Therapy No Result Required. Puncture Site Left radial ABG pH 7.14 L* ABG pCO2 at Pt Temp > 100 H* ABG pO2 at Pt Temp 57.1 L ABG HCO3 No Result Required. ABG O2 Sat (Measured) 80.0 L ABG O2 Content 14.7 L ABG Base Excess No Result Required. Neto Test Positive Carboxyhemoglobin Methemoglobin O2 Delivery Device No Result Required. Oxygen Flow Rate Yes Vent Mode No Result Required. Vent Rate No Result Required. Mechanical Rate No Result Required. Pressure Support Vent No Result Required. Sodium Potassium Chloride Carbon Dioxide Anion Gap BUN Creatinine Est GFR (CKD-EPI)AfAm Est GFR (CKD-EPI)NonAf Random Glucose Lactic Acid Calcium Total Bilirubin AST ALT Alkaline Phosphatase Troponin I Total Protein Albumin Urine Color Urine Appearance Urine pH Ur Specific [place] Urine Protein Urine Glucose (UA) Urine Ketones Urine Blood Urine Nitrite Urine Bilirubin Urine Urobilinogen Ur Leukocyte Esterase Urine WBC (Auto) Urine RBC (Auto) Urine Casts (Auto) U Epithel Cells (Auto) Urine Bacteria (Auto) Active Medications Generic Name Dose Route Start Last Admin Trade Name Freq PRN Reason Stop Dose Admin Chlorhexidine Gluconate 1 applic 05/13/19 22:00 Hibiclens For Decolonization - TP HS MINDI Enoxaparin Sodium 40 mg 05/13/19 22:00 Lovenox - SQ BID MINDI Propofol 1,000,000 mcg in 100 mls @ 5.715 mls/hr 05/13/19 15:15 05/13/19 15: 37 Diprivan - IVPB 15 mcg/kg/min TITR MINDI 17.146 mls/hr Titration Protocol 5 MCG/KG/MIN Mupirocin 1 applic 05/13/19 22:00 Bactroban Ointment (For Decolonization) - NS 05/18/19 21:59 BID [facility] ASSESSMENT/PLAN: Satya Rosario is a 54 year old with a past medical history of COPD, OHS, RANJIT, HTN, CHF (last echo in March showing normal EF), GERD, MDD who is admitted to the ICU for acute on chronic hypercapneic hypoxic respiratory failure secondary to long-standing COPD, OHS, RANJIT, and non-compliance with home oxygen therapy and nightly CPAP. Acute on chronic hypercapneic hypoxic respiratory failure COPD OHS RANJIT HTN GERD NEUROLOGIC - intubated and sedated - continue propofol and wean when ready to extubate - hold home gabapentin CARDIOLOGY - last echo 04/14 showing normal EF, normal left ventricle function and size - hold beta phuong in acute COPD exacerbation - troponins negative - BNP ordered - hold spironolactone in setting of hyperkalemia - on terlipressin, non-formulary, holding BP meds in setting of lower pressures , can restart if BPs increase RESPIRATORY - intubated - vent settings optimized for reduction of hypercapneia and adequate oxygenation - PFTs performed in March showing patient with severe airway obstructive disease , severe restrictive disease, and severe diffusion deficit - ABGs showing continued acute on chronic hypercapneic hypoxic process - repeat ABG showing pH 7.36, CO2 69.3, O2 77, improving - morning ABG - given duonebs and solumedrol in ED - continue Solumedrol 60mg IV bid, titrate as necessary - CXR showing widened mediastinum, essentially unchanged since previous admission - questionable PNA process RENAL - FAITH, today 1.1, baseline 0.8 - avoid overhydration due to hx of CHF - hyperkalemia 5.2 noted, on spironolactone, given 3 amps of Duonebs - repeat BMP noted hyperkalemia 6.4, given calcium gluconate, insulin 10 units, D50 - repeat BMP showing improvement of hyperkalemia at 5.9, given another insulin 10 units and D50 - AM labs to assess for electrolyte status GASTROINTESTINAL - Protonix 40mg bid prophylaxis while intubated - hold home ranitidine while on protonix INFECTIOUS DISEASE - febrile 101.5 at [facility] - WBC 11.9 - hx of PNA, concern for HAP - given vancomycin and Zosyn in ED - continue Zosyn 4.5gm q6h - blood cxs pending - urine cxs pending - Legionella and strep urine antigens - sputum cxs - continue to monitor for signs of infection, WBC, fevers - ID consulted HEMATOLOGY - no acute issues PSYCHIATRIC - continue home Lexapro 10mg to avoid discontinuation syndrome F/E/N - no standing fluids - continue to monitor electrolytes and replete as necessary - NPO while intubated LINES - L AC inserted 05/13 - R AC inserted 05/13 PROPHYLAXIS - on Lovenox 40mg subq bid - protonix 40mg IV bid while intubated CODE - full code DISPO - continue to monitor in ICU Thank you for this consultative opportunity. RADHA CAZARES DO - PGY-1 INTERNAL MEDICINE Visit type - Emergency Visit Emergency Visit: Yes ED Registration Date: 05/13/19 Care time: The patient presented to the Emergency Department on the above date and was hospitalized for further evaluation of their emergent condition. - New Patient This patient is new to me today: Yes Date on this admission: 05/14/19 - Critical Care Critical Care patient: Yes Total Critical Care Time (in minutes): 35 Critical Care Statement: The care of this patient involved high complexity decision making to prevent further life threatening deterioration of the patient 's condition and/or to evaluate & treat vital organ system(s) failure or risk of failure.
[2019-05-13] MEDS: PROPOFOL 1,000,000 MCG/100 ML VIAL IVPB SCH (16:00)
[2019-05-13] MEDS ORDERED: FENTANYL INJECTION 500 MCG in DEXTROSE 5%-WATER - 90 ML IVPB SCH (16:30)
[2019-05-13] MEDS ORDERED: fentaNYL CITRATE 250 MCG/5 ML VIAL ONE (16:41)
[2019-05-13 17:30] LABS: ARTERIAL BLD GAS O2 SATURATION 91.1 % (95-98); ARTERIAL BLOOD GAS PO2 62.4 mmHg (80-105); ARTERIAL BLOOD GAS pH 7.36 (7.35-7.45)
[2019-05-13 17:32] LABS: ALLENS TEST POSITIVE
[2019-05-13 17:35] LABS: ARTERIAL BLOOD GAS BASE EXCESS 11.4 meq/l (-2-2); ARTERIAL BLOOD GAS PCO2 72.8 mmHg (35-45)
[2019-05-13] MEDS ORDERED: PIPERACILLIN/TAZOBACTAM 4.5 GM VIAL IVPB ONE ×2 (18:48→20:36)
[2019-05-13] MEDS ORDERED: DEXTROSE 5%-WATER 100 ML IVPB ONE ×2 (18:48→20:36)
[2019-05-13] MEDS: PIPERACILLIN/TAZOB 4.5 GM 4.5 GM in DEXTROSE 5%-WATER 100 ML IVPB SCH ×2 (18:55→21:08)
[2019-05-13 19:29] LABS: ARTERIAL BLD GAS O2 SATURATION 92.9 % (95-98); ARTERIAL BLOOD GAS BASE EXCESS 10.5 meq/l (-2-2); ARTERIAL BLOOD GAS PCO2 60.4 mmHg (35-45); ARTERIAL BLOOD GAS PO2 64.2 mmHg (80-105); ARTERIAL BLOOD GAS pH 7.41 (7.35-7.45)
[2019-05-13 19:33] LABS: ALLENS TEST POSITIVE
[2019-05-13] MEDS: PANTOPRAZOLE SODIUM 40 MG VIAL IVPUSH SCH (21:07)
[2019-05-13] MEDS: MUPIROCIN 2% TOPICAL OINTMENT FOR DECOLONIZATION NS SCH (21:07)
[2019-05-13] MEDS: CHLORHEXIDINE GLUCONATE 4% CLEANSER FOR DECOLONIZATION TP SCH (21:07)
[2019-05-13] MEDS: ENOXAPARIN NA (PORCINE) 30 MG/0.3 ML DISP.SYRIN SQ SCH (21:08)
[2019-05-13] MEDS: methylPREDNISolone NA SUCC 40 MG/1 ML VIAL IVPUSH SCH (21:08)
[2019-05-13 21:11] LABS: BASO % 0.2 % (0-2.0); HEMATOCRIT 38.9 % (35.4-49); HEMOGLOBIN 12.3 GM/dL (11.7-16.9); LYMPH % 5.3 % (8-40); MCH 28.1 pg (25.7-33.7); MCHC 31.5 g/dl (32.0-35.9); MEAN CELL VOLUME 89.3 fl (80-96); MEAN PLT VOLUME 7.2 fl (7.5-11.1); MONO % 0.7 % (3.8-10.2); NEUT % 93.8 % (42.8-82.8); PLATELET COUNT 304 K/MM3 (134-434); RBC 4.35 M/mm3 (4.00-5.60); RDW 19.6 % (11.9-15.9); WHITE BLOOD COUNT 10.9 K/mm3 (4.0-10.0)
[2019-05-13 21:36] LABS: ALBUMIN 2.7 g/dl (3.4-5.0); BILIRUBIN,TOTAL 0.4 mg/dL (0.2-1); BLOOD UREA NITROGEN 43.9 mg/dL (7-18); CALCIUM 8.7 mg/dL (8.5-10.1); CREATININE 1.2 mg/dL (0.55-1.3); TOT PROT 6.3 g/dl (6.4-8.2)
[2019-05-13 21:40] LABS: POTASSIUM 6.4 mmol/L (3.5-5.1)
[2019-05-13] MEDS ORDERED: CALCIUM GLUCONATE 10% - 1,000 MG/10 ML VIAL IVPUSH ONE (22:02)
[2019-05-13] MEDS ORDERED: INSULIN REGULAR HUMAN 100 UNITS/ML *VIAL IVPUSH ONE (22:02)
[2019-05-13] MEDS ORDERED: DEXTROSE 50%-WATER - 25 GM/50 ML VIAL IVPUSH ONE (22:02)
[2019-05-13] MEDS ORDERED: DEXTROSE 50%-WATER 25 GM/50 ML DISP.SYRIN ONE (22:10)
[2019-05-13 22:31] LABS: ANISOCYTOSIS 1+; MACROCYTOSIS 1+; OVALOCYTE 1+; PLATELET ESTIMATE NORMAL
[2019-05-13] MEDS: CLOTRIMAZOLE 1% CREAM 15 GM TUBE TP SCH (22:54)
[2019-05-14 00:11] LABS: ARTERIAL BLD GAS O2 SATURATION 95.2 % (95-98); ARTERIAL BLOOD GAS PCO2 69.3 mmHg (35-45); ARTERIAL BLOOD GAS PO2 77.7 mmHg (80-105); ARTERIAL BLOOD GAS pH 7.36 (7.35-7.45)
[2019-05-14 00:21] LABS: ALLENS TEST POSITIVE
[2019-05-14 00:56] LABS: BLOOD UREA NITROGEN 45.1 mg/dL (7-18); CALCIUM 8.9 mg/dL (8.5-10.1); CREATININE 1.4 mg/dL (0.55-1.3); POTASSIUM 5.9 mmol/L (3.5-5.1)
[2019-05-14] MEDS ORDERED: SODIUM CHLORIDE 250 ML IV STA (00:58)
[2019-05-14] MEDS ORDERED: INSULIN REGULAR HUMAN 100 UNITS/ML *VIAL IVPUSH ONE ×2 (00:59→07:43)
[2019-05-14] MEDS ORDERED: DEXTROSE 50%-WATER - 25 GM/50 ML VIAL IVPUSH ONE ×2 (00:59→07:43)
[2019-05-14] MEDS ORDERED: DEXTROSE 50%-WATER 25 GM/50 ML DISP.SYRIN ONE (01:05)
[2019-05-14] MEDS ORDERED: DEXTROSE 5%-WATER 100 ML IVPB ONE ×2 (01:20→08:11)
[2019-05-14] MEDS ORDERED: PIPERACILLIN/TAZOBACTAM 4.5 GM VIAL IVPB ONE ×3 (01:20→16:20)
[2019-05-14] MEDS: PIPERACILLIN/TAZOB 4.5 GM 4.5 GM in DEXTROSE 5%-WATER 100 ML IVPB SCH ×4 (02:02→19:38)
[2019-05-14 06:54] LABS: HEMATOCRIT 41.4 % (35.4-49); HEMOGLOBIN 12.9 GM/dL (11.7-16.9); MCH 27.9 pg (25.7-33.7); MCHC 31.1 g/dl (32.0-35.9); MEAN CELL VOLUME 89.7 fl (80-96); MEAN PLT VOLUME 6.9 fl (7.5-11.1); PLATELET COUNT 299 K/MM3 (134-434); RBC 4.61 M/mm3 (4.00-5.60); RDW 19.2 % (11.9-15.9); WHITE BLOOD COUNT 10.1 K/mm3 (4.0-10.0)
[2019-05-14 06:55] LABS: ARTERIAL BLD GAS O2 SATURATION 97.2 % (95-98); ARTERIAL BLOOD GAS BASE EXCESS 9.3 meq/l (-2-2); ARTERIAL BLOOD GAS PCO2 76.9 mmHg (35-45); ARTERIAL BLOOD GAS PO2 99.7 mmHg (80-105); ARTERIAL BLOOD GAS pH 7.32 (7.35-7.45)
[2019-05-14 06:56] LABS: ALLENS TEST POSITIVE
[2019-05-14 07:06] LABS: INR 1.08 (0.83-1.09); PROTHROMBIN TIME (PATIENT) 12.7 SEC (9.7-13.0)
[2019-05-14 07:16] LABS: BLOOD UREA NITROGEN 47.6 mg/dL (7-18); CALCIUM 9.1 mg/dL (8.5-10.1); CREATININE 1.3 mg/dL (0.55-1.3); MAGNESIUM 2.7 mg/dL (1.8-2.4); PHOSPHOROUS 3.7 mg/dL (2.5-4.9)
--- NOTE | 2019-05-14 07:37 | PN ---
Progress Note (short form) - Note Progress Note: Events noted sedated , intubated, on vent support no pressor support Vital Signs - 24 hr 05/13/19 05/13/19 05/13/19 19:56 19:57 19:59 Temperature Pulse Rate 80 80 Respiratory 18 18 18 Rate Blood Pressure 112/86 112/86 O2 Sat by Pulse 94 L Oximetry (%) 05/13/19 05/13/19 05/13/19 20:00 23:10 23:47 Temperature 98.1 F Pulse Rate 78 76 Respiratory 15 16 16 Rate Blood Pressure 101/63 O2 Sat by Pulse 94 L 96 Oximetry (%) 05/14/19 05/14/19 05/14/19 00:20 02:00 02:33 Temperature 98.3 F Pulse Rate 80 78 Respiratory 14 14 14 Rate Blood Pressure 104/69 97/64 O2 Sat by Pulse Oximetry (%) 05/14/19 05/14/19 05/14/19 04:00 06:00 08:00 Temperature 98.5 F Pulse Rate 72 82 85 Respiratory 16 19 18 Rate Blood Pressure 102/67 128/90 126/81 O2 Sat by Pulse Oximetry (%) 05/14/19 05/14/19 05/14/19 08:37 09:00 10:00 Temperature 98.5 F Pulse Rate 87 Respiratory 18 18 16 Rate Blood Pressure 95/64 O2 Sat by Pulse 93 L Oximetry (%) Current Medications Generic Name Dose Route Start Last Admin Trade Name Freq PRN Reason Stop Dose Admin Albuterol/Ipratropium 1 amp 05/14/19 12:00 05/14/19 15:50 Duoneb - NEB 1 amp RQID MINDI Administration Chlorhexidine Gluconate 1 applic 05/13/19 22:00 05/13/19 21:07 Hibiclens For Decolonization - TP 1 applic HS MINDI Administration Clotrimazole 1 applic 05/13/19 22:00 05/14/19 10:44 Lotrimin 1% Cream - TP 1 applic BID MINDI Administration Enoxaparin Sodium 40 mg 05/13/19 22:00 05/14/19 10:45 Lovenox - SQ 40 mg BID MINDI Administration Escitalopram Oxalate 10 mg 05/14/19 10:00 05/14/19 10:49 Lexapro - NGT 10 mg DAILY MINDI Administration Propofol 1,000,000 mcg in 100 mls @ 5.715 mls/hr 05/13/19 16:00 05/14/19 15: 10 Diprivan - IVPB 25 mcg/kg/min TITR MINDI 28.576 mls/hr Administration Protocol 5 MCG/KG/MIN Piperacillin Sod/Tazobactam 100 mls @ 200 mls/hr 05/14/19 16:00 05/14/19 16: 24 Sod 4.5 gm/ Dextrose IVPB 200 mls/hr Q8H-IV MINDI Administration Protocol Fentanyl 500 mcg/ Dextrose 100 mls @ 20 mls/hr 05/14/19 16:15 05/14/19 15:10 IVPB 100 mcg/hr TITR MINDI 20 mls/hr Administration 100 MCG/HR Methylprednisolone Sodium Succinate 60 mg 05/13/19 22:00 05/14/19 10:46 Solu-Medrol - IVPUSH 60 mg BID MINDI Administration Mupirocin 1 applic 05/13/19 22:00 05/14/19 10:49 Bactroban Ointment (For Decolonization) - NS 05/18/19 21:59 1 applic BID MINDI Administration Pantoprazole Sodium 40 mg 05/13/19 22:00 05/14/19 10:46 Protonix Iv IVPUSH 40 mg BID MINDI Administration Laboratory Results - last 24 hr 05/13/19 05/13/19 05/13/19 19:00 20:35 20:35 WBC 10.9 H RBC 4.35 Hgb 12.3 Hct 38.9 MCV 89.3 MCH 28.1 MCHC 31.5 L RDW 19.6 H Plt Count 304 MPV 7.2 L Absolute Neuts (auto) 10.2 H Total Counted 100 Neutrophils % 93.8 H Neutrophils % (Manual) 92.9 H Band Neutrophils % 0.0 Lymphocytes % 5.3 L D Lymphocytes % (Manual) 5.1 L D Monocytes % 0.7 L D Monocytes % (Manual) 0 L D Eosinophils % 0.0 D Eosinophils % (Manual) 0.0 Basophils % 0.2 Basophils % (Manual) 0.0 Myelocytes % (Man) 2 D Promyelocytes % (Man) 0 Blast Cells % (Manual) 0 Nucleated RBC % 1 H Metamyelocytes 0 Hypochromia 0 Platelet Estimate Normal Polychromasia 2+ Poikilocytosis 1+ Anisocytosis 1+ Microcytosis 2+ Macrocytosis 1+ Ovalocytes 1+ PT with INR INR Anticoagulation Therapy No Result Required. Puncture Site Right radial ABG pH 7.41 ABG pCO2 at Pt Temp 60.4 H ABG pO2 at Pt Temp 64.2 L ABG HCO3 37.2 H ABG O2 Sat (Measured) 92.9 L ABG O2 Content 16.4 ABG Base Excess 10.5 H Neto Test Positive O2 Delivery Device Vent Oxygen Flow Rate 100% Vent Mode No Result Required. Vent Rate 18 Mechanical Rate No Result Required. PEEP 8.0 Pressure Support Vent 500 Sodium 136 Potassium 6.4 H* Chloride 94 L Carbon Dioxide 39 H Anion Gap 4 L BUN 43.9 H Creatinine 1.2 Est GFR (CKD-EPI)AfAm 78.43 Est GFR (CKD-EPI)NonAf 67.67 Random Glucose 134 H Serum Osmolality Calcium 8.7 Phosphorus Magnesium Total Bilirubin 0.4 AST 6 L ALT 13 Alkaline Phosphatase 80 B-Natriuretic Peptide Total Protein 6.3 L Albumin 2.7 L Triglycerides Cholesterol Total LDL Cholesterol HDL Cholesterol TSH 05/13/19 05/14/19 05/14/19 23:59 00:00 05:56 WBC RBC Hgb Hct MCV MCH MCHC RDW Plt Count MPV Absolute Neuts (auto) Total Counted Neutrophils % Neutrophils % (Manual) Band Neutrophils % Lymphocytes % Lymphocytes % (Manual) Monocytes % Monocytes % (Manual) Eosinophils % Eosinophils % (Manual) Basophils % Basophils % (Manual) Myelocytes % (Man) Promyelocytes % (Man) Blast Cells % (Manual) Nucleated RBC % Metamyelocytes Hypochromia Platelet Estimate Polychromasia Poikilocytosis Anisocytosis Microcytosis Macrocytosis Ovalocytes PT with INR 12.70 INR 1.08 Anticoagulation Therapy No Result Required. Puncture Site Right radial ABG pH 7.36 ABG pCO2 at Pt Temp 69.3 H ABG pO2 at Pt Temp 77.7 L ABG HCO3 37.8 H ABG O2 Sat (Measured) 95.2 ABG O2 Content 16.8 ABG Base Excess 10.0 H Neto Test Positive O2 Delivery Device No Result Required. Oxygen Flow Rate No Result Required. Vent Mode No Result Required. Vent Rate No Result Required. Mechanical Rate No Result Required. PEEP 10.0 Pressure Support Vent No Result Required. Sodium 137 Potassium 5.9 H Chloride 92 L Carbon Dioxide 39 H Anion Gap 6 L BUN 45.1 H Creatinine 1.4 H Est GFR (CKD-EPI)AfAm 65.09 Est GFR (CKD-EPI)NonAf 56.16 Random Glucose 163 H Serum Osmolality Calcium 8.9 Phosphorus Magnesium Total Bilirubin AST ALT Alkaline Phosphatase B-Natriuretic Peptide Total Protein Albumin Triglycerides Cholesterol Total LDL Cholesterol HDL Cholesterol TSH 05/14/19 05/14/19 05/14/19 05:56 05:56 06:30 WBC 10.1 H RBC 4.61 Hgb 12.9 Hct 41.4 MCV 89.7 MCH 27.9 MCHC 31.1 L RDW 19.2 H Plt Count 299 MPV 6.9 L Absolute Neuts (auto) Total Counted Neutrophils % Neutrophils % (Manual) Band Neutrophils % Lymphocytes % Lymphocytes % (Manual) Monocytes % Monocytes % (Manual) Eosinophils % Eosinophils % (Manual) Basophils % Basophils % (Manual) Myelocytes % (Man) Promyelocytes % (Man) Blast Cells % (Manual) Nucleated RBC % Metamyelocytes Hypochromia Platelet Estimate Polychromasia Poikilocytosis Anisocytosis Microcytosis Macrocytosis Ovalocytes PT with INR INR Anticoagulation Therapy No Result Required. Puncture Site Right radial ABG pH 7.32 L ABG pCO2 at Pt Temp 76.9 H* ABG pO2 at Pt Temp 99.7 ABG HCO3 38.2 H ABG O2 Sat (Measured) 97.2 ABG O2 Content 17.7 ABG Base Excess 9.3 H Neto Test Positive O2 Delivery Device Vent Oxygen Flow Rate Yes Vent Mode No Result Required. Vent Rate 14 Mechanical Rate No Result Required. PEEP 10.0 Pressure Support Vent No Result Required. Sodium 136 Potassium 6.0 H Chloride 93 L Carbon Dioxide 38 H Anion Gap 6 L BUN 47.6 H Creatinine 1.3 Est GFR (CKD-EPI)AfAm 71.19 Est GFR (CKD-EPI)NonAf 61.43 Random Glucose 111 H Serum Osmolality Calcium 9.1 Phosphorus 3.7 Magnesium 2.7 H Total Bilirubin AST ALT Alkaline Phosphatase B-Natriuretic Peptide 382.0 H Total Protein Albumin Triglycerides 168 H Cholesterol 227 H Total LDL Cholesterol 156 H HDL Cholesterol 47 TSH 1.30 D 05/14/19 05/14/19 16:00 16:00 WBC RBC Hgb Hct MCV MCH MCHC RDW Plt Count MPV Absolute Neuts (auto) Total Counted Neutrophils % Neutrophils % (Manual) Band Neutrophils % Lymphocytes % Lymphocytes % (Manual) Monocytes % Monocytes % (Manual) Eosinophils % Eosinophils % (Manual) Basophils % Basophils % (Manual) Myelocytes % (Man) Promyelocytes % (Man) Blast Cells % (Manual) Nucleated RBC % Metamyelocytes Hypochromia Platelet Estimate Polychromasia Poikilocytosis Anisocytosis Microcytosis Macrocytosis Ovalocytes PT with INR INR Anticoagulation Therapy Puncture Site ABG pH ABG pCO2 at Pt Temp ABG pO2 at Pt Temp ABG HCO3 ABG O2 Sat (Measured) ABG O2 Content ABG Base Excess Neto Test O2 Delivery Device Oxygen Flow Rate Vent Mode Vent Rate Mechanical Rate PEEP Pressure Support Vent Sodium 137 Potassium 5.6 H Chloride 94 L Carbon Dioxide 37 H Anion Gap 6 L BUN 47.8 H Creatinine 1.3 Est GFR (CKD-EPI)AfAm 71.19 Est GFR (CKD-EPI)NonAf 61.43 Random Glucose 130 H Serum Osmolality 304 Calcium 9.1 Phosphorus Magnesium Total Bilirubin AST ALT Alkaline Phosphatase B-Natriuretic Peptide Total Protein Albumin Triglycerides Cholesterol Total LDL Cholesterol HDL Cholesterol TSH S1 S2 RRR Lungs decreased breath sounds morbid obesity Abd- soft , ND edema+ PLAN Acute hypercapniec respiratory failure COPD exacerbation morbid obesity Sleep apnea diastolic CHF Pneumonia? -- on vent support -- wean as per ICU team -- ICU monitoring -- monitor potassium -- on meds -- on iv antibiotics -- ID, Cardiology eval Problem List - Problems (1) COPD (chronic obstructive pulmonary disease) Code(s): J44.9 - CHRONIC OBSTRUCTIVE PULMONARY DISEASE, UNSPECIFIED (2) COPD exacerbation Code(s): J44.1 - CHRONIC OBSTRUCTIVE PULMONARY DISEASE W (ACUTE) EXACERBATION (3) GERD (gastroesophageal reflux disease) Code(s): K21.9 - GASTRO-ESOPHAGEAL REFLUX DISEASE WITHOUT ESOPHAGITIS (4) HTN (hypertension) Code(s): I10 - ESSENTIAL (PRIMARY) HYPERTENSION (5) Hyperkalemia Code(s): E87.5 - HYPERKALEMIA (6) RANJIT (obstructive sleep apnea) Code(s): G47.33 - OBSTRUCTIVE SLEEP APNEA (ADULT) (PEDIATRIC) (7) Pneumonia Code(s): J18.9 - PNEUMONIA, UNSPECIFIED ORGANISM
[2019-05-14] MEDS ORDERED: SODIUM POLYSTYRENE SULFONATE 15 GM/60 ML BOTTLE GT ONE (07:42)
[2019-05-14] MEDS ORDERED: DEXTROSE 50%-WATER - 25 GM/50 ML VIAL ONE (08:16)
--- NOTE | 2019-05-14 08:27 | PN ---
Progress Note (short form) - Note Progress Note: ID consult dictated imp/reccd 54 yo man with morbid obesity, copd, osas- admitted from [facility]- he was recently on 7 days augmentin for UTI he has been refusing cpap at [facility] as well as oxygen he was sent to Ed with Lethargy and fever to 101.5 he was found to be in hypercapneic resp failure, failed cpap in Ed and was intubated now sedated and intubated recent admission 04/04 to 04/10 - treated with rocephin/zithromax no skin breakdown, love in place orally intubated acute on chronic hypercapneic resp failure cannot r/o pneumonia COPD OSAS morbid obesity hyperkalemia agree with vancomycin and zosyn blood cultures sputum culture urinary antigens Problem List - Problems (1) Acute on chronic respiratory failure with hypoxia and hypercapnia Code(s): J96.21 - ACUTE AND CHRONIC RESPIRATORY FAILURE WITH HYPOXIA; J96.22 - ACUTE AND CHRONIC RESPIRATORY FAILURE WITH HYPERCAPNIA (2) Pneumonia Code(s): J18.9 - PNEUMONIA, UNSPECIFIED ORGANISM (3) COPD (chronic obstructive pulmonary disease) Code(s): J44.9 - CHRONIC OBSTRUCTIVE PULMONARY DISEASE, UNSPECIFIED (4) RANJIT (obstructive sleep apnea) Code(s): G47.33 - OBSTRUCTIVE SLEEP APNEA (ADULT) (PEDIATRIC) (5) Morbid obesity Code(s): E66.01 - MORBID (SEVERE) OBESITY DUE TO EXCESS CALORIES (6) Hyperkalemia Code(s): E87.5 - HYPERKALEMIA
[2019-05-14] MEDS ORDERED: fentaNYL CITRATE 250 MCG/5 ML VIAL ONE ×3 (08:48→19:29)
[2019-05-14] MEDS: FENTANYL INJECTION 500 MCG in DEXTROSE 5%-WATER - 90 ML IVPB SCH ×3 (08:50→21:00)
--- NOTE | 2019-05-14 09:51 | PN ---
Teaching Attending Note Name of Resident: Tera Plummer ATTENDING PHYSICIAN STATEMENT I saw and evaluated the patient. I reviewed the resident's note and discussed the case with the resident. I agree with the resident's findings and plan as documented. SUBJECTIVE: Patient seen and examined in the ICU. Intubated and sedated. AC Mode of vent, 60% FiO2 and PEEP 10cm. Saturation 92%. No pressors. Ppeak: 26. Severe Obstruction noted on flow loops. CXR: pending Intake & Output 05/11/19 05/12/19 05/13/19 05/14/19 23:59 23:59 23:59 23:59 Intake Total 990 Output Total 300 Balance 690 Weight 410 lb 0.957 oz 410 lb 8 oz Last Vital Signs Temp Pulse Resp BP Pulse Ox 98.5 F 85 18 126/81 96 05/14/19 06:00 05/14/19 08:00 05/14/19 08:37 05/14/19 08:00 05/13/19 23:10 Active Medications Chlorhexidine Gluconate (Hibiclens For Decolonization -) 1 applic TP HS [facility] Last Admin: 05/13/19 21:07 Dose: 1 applic Clotrimazole (Lotrimin 1% Cream -) 1 applic TP BID [facility] Last Admin: 05/13/19 22:54 Dose: 1 applic Enoxaparin Sodium (Lovenox -) 40 mg SQ BID [facility] Last Admin: 05/13/19 21:08 Dose: 40 mg Escitalopram Oxalate (Lexapro -) 10 mg NGT DAILY [facility] Propofol (Diprivan -) 1,000,000 mcg in 100 mls @ 5.715 mls/hr IVPB TITR [facility]; Protocol Last Admin: 05/13/19 16:00 Dose: 15 mcg/kg/min, 17.146 mls/hr Fentanyl 500 mcg/ Dextrose 100 mls @ 0 mls/hr IVPB TITR [facility] Stop: 05/14/19 16:29 Piperacillin Sod/Tazobactam (Sod 4.5 gm/ Dextrose) 100 mls @ 200 mls/hr IVPB Q8H-IV [facility]; Protocol Methylprednisolone Sodium Succinate (Solu-Medrol -) 60 mg IVPUSH BID [facility] Last Admin: 05/13/19 21:08 Dose: 60 mg Mupirocin (Bactroban Ointment (For Decolonization) -) 1 applic NS BID [facility] Stop: 05/18/19 21:59 Last Admin: 05/13/19 21:07 Dose: 1 applic Pantoprazole Sodium (Protonix Iv) 40 mg IVPUSH BID [facility] Last Admin: 05/13/19 21:07 Dose: 40 mg GENERAL: Intubated and sedated HEAD: Normal with no signs of trauma. EYES: Pupils equal, round and reactive to light, sclera anicteric, conjunctiva clear. NECK: Normal range of motion, no JVD. Dermatitis like rash under chin. LUNGS: Vented, mild bilateral expiratory wheeze, scattered rhonchi HEART: Heart sounds distant, Regular rate and rhythm, normal S1 and S2 without murmur, rub. ABDOMEN: Obese, Soft, nontender, not distended, normoactive bowel sounds. UPPER EXTREMITIES: 2+ pulses, warm, well-perfused. No cyanosis. No clubbing. Cap refill <2 seconds. No peripheral edema. LOWER EXTREMITIES: 2+ pulses, warm, well-perfused. No peripheral edema. NEUROLOGICAL: Pupils reactive, occasional purposeful movement. Withdraws and grimace to pain. Laboratory Results - last 24 hr 05/13/19 05/13/19 05/13/19 11:20 11:25 11:25 WBC 11.9 H RBC 4.39 Hgb 12.2 Hct 39.6 MCV 90.3 MCH 27.8 MCHC 30.7 L RDW 19.4 H Plt Count 286 D MPV 6.8 L Absolute Neuts (auto) 10.2 H Total Counted Neutrophils % 86.1 H Neutrophils % (Manual) Band Neutrophils % Lymphocytes % 8.6 D Lymphocytes % (Manual) Monocytes % 4.1 D Monocytes % (Manual) Eosinophils % 0.3 D Eosinophils % (Manual) Basophils % 0.9 D Basophils % (Manual) Myelocytes % (Man) Promyelocytes % (Man) Blast Cells % (Manual) Nucleated RBC % 1 H Metamyelocytes Hypochromia Platelet Estimate Polychromasia Poikilocytosis Anisocytosis Microcytosis Macrocytosis Ovalocytes PT with INR 13.20 H INR 1.12 H PTT (Actin FS) 39.5 H Anticoagulation Therapy No Result Required. Puncture Site No Result Required. ABG pH 7.21 L ABG pCO2 at Pt Temp > 100 H* ABG pO2 at Pt Temp 50.6 L ABG HCO3 0 L ABG O2 Sat (Measured) 75.4 L ABG O2 Content 15.6 ABG Base Excess 0 Neto Test No Result Required. Carboxyhemoglobin Methemoglobin O2 Delivery Device No Result Required. Oxygen Flow Rate No Result Required. Vent Mode No Result Required. Vent Rate No Result Required. Mechanical Rate No Result Required. PEEP Pressure Support Vent No Result Required. Sodium Potassium Chloride Carbon Dioxide Anion Gap BUN Creatinine Est GFR (CKD-EPI)AfAm Est GFR (CKD-EPI)NonAf Random Glucose Lactic Acid Calcium Phosphorus Magnesium Total Bilirubin AST ALT Alkaline Phosphatase Troponin I B-Natriuretic Peptide Total Protein Albumin Urine Color Urine Appearance Urine pH Ur Specific Rudy Urine Protein Urine Glucose (UA) Urine Ketones Urine Blood Urine Nitrite Urine Bilirubin Urine Urobilinogen Ur Leukocyte Esterase Urine WBC (Auto) Urine RBC (Auto) Urine Casts (Auto) U Pathogenic Cast Auto U Epithel Cells (Auto) U Sm Round Cell (Auto) Urine Bacteria (Auto) 05/13/19 05/13/19 05/13/19 11:25 11:25 11:28 WBC RBC Hgb Hct MCV MCH MCHC RDW Plt Count MPV Absolute Neuts (auto) Total Counted Neutrophils % Neutrophils % (Manual) Band Neutrophils % Lymphocytes % Lymphocytes % (Manual) Monocytes % Monocytes % (Manual) Eosinophils % Eosinophils % (Manual) Basophils % Basophils % (Manual) Myelocytes % (Man) Promyelocytes % (Man) Blast Cells % (Manual) Nucleated RBC % Metamyelocytes Hypochromia Platelet Estimate Polychromasia Poikilocytosis Anisocytosis Microcytosis Macrocytosis Ovalocytes PT with INR Cancelled INR Cancelled PTT (Actin FS) Anticoagulation Therapy Puncture Site ABG pH ABG pCO2 at Pt Temp ABG pO2 at Pt Temp ABG HCO3 ABG O2 Sat (Measured) ABG O2 Content ABG Base Excess Neto Test Carboxyhemoglobin Methemoglobin O2 Delivery Device Oxygen Flow Rate Vent Mode Vent Rate Mechanical Rate PEEP Pressure Support Vent Sodium 139 Potassium 5.2 H Chloride 95 L Carbon Dioxide 41 H Anion Gap 2 L BUN 39.2 H Creatinine 1.1 Est GFR (CKD-EPI)AfAm 87.13 Est GFR (CKD-EPI)NonAf 75.17 Random Glucose 109 H Lactic Acid 0.6 Calcium 8.8 Phosphorus Magnesium Total Bilirubin 0.3 AST 6 L ALT 14 Alkaline Phosphatase 84 Troponin I < 0.02 B-Natriuretic Peptide Total Protein 6.3 L Albumin 2.7 L Urine Color Urine Appearance Urine pH Ur Specific Rudy Urine Protein Urine Glucose (UA) Urine Ketones Urine Blood Urine Nitrite Urine Bilirubin Urine Urobilinogen Ur Leukocyte Esterase Urine WBC (Auto) Urine RBC (Auto) Urine Casts (Auto) U Pathogenic Cast Auto U Epithel Cells (Auto) U Sm Round Cell (Auto) Urine Bacteria (Auto) 05/13/19 05/13/19 05/13/19 12:37 12:59 13:05 WBC RBC Hgb Hct MCV MCH MCHC RDW Plt Count MPV Absolute Neuts (auto) Total Counted Neutrophils % Neutrophils % (Manual) Band Neutrophils % Lymphocytes % Lymphocytes % (Manual) Monocytes % Monocytes % (Manual) Eosinophils % Eosinophils % (Manual) Basophils % Basophils % (Manual) Myelocytes % (Man) Promyelocytes % (Man) Blast Cells % (Manual) Nucleated RBC % Metamyelocytes Hypochromia Platelet Estimate Polychromasia Poikilocytosis Anisocytosis Microcytosis Macrocytosis Ovalocytes PT with INR INR PTT (Actin FS) Anticoagulation Therapy No Result Required. Puncture Site Left radial ABG pH 7.19 L* ABG pCO2 at Pt Temp > 100 H* ABG pO2 at Pt Temp 70 L ABG HCO3 0 L ABG O2 Sat (Measured) 89.5 L ABG O2 Content 15.6 ABG Base Excess 0 Neto Test Positive Carboxyhemoglobin 2.6 H Methemoglobin 0.5 O2 Delivery Device No Result Required. Oxygen Flow Rate No Result Required. Vent Mode No Result Required. Vent Rate No Result Required. Mechanical Rate No Result Required. PEEP Pressure Support Vent No Result Required. Sodium Potassium Chloride Carbon Dioxide Anion Gap BUN Creatinine Est GFR (CKD-EPI)AfAm Est GFR (CKD-EPI)NonAf Random Glucose Lactic Acid Calcium Phosphorus Magnesium Total Bilirubin AST ALT Alkaline Phosphatase Troponin I B-Natriuretic Peptide Total Protein Albumin Urine Color Yellow Urine Appearance Cloudy Urine pH 5.0 Ur Specific Rudy 1.020 Urine Protein Trace Urine Glucose (UA) Negative Urine Ketones Negative Urine Blood Negative Urine Nitrite Negative Urine Bilirubin Negative Urine Urobilinogen 1.0 Ur Leukocyte Esterase 1+ H Urine WBC (Auto) 13 Urine RBC (Auto) 0 Urine Casts (Auto) 83 U Pathogenic Cast Auto None seen U Epithel Cells (Auto) 16.9 U Sm Round Cell (Auto) None seen Urine Bacteria (Auto) 2654.7 05/13/19 05/13/19 05/13/19 14:01 16:00 17:10 WBC RBC Hgb Hct MCV MCH MCHC RDW Plt Count MPV Absolute Neuts (auto) Total Counted Neutrophils % Neutrophils % (Manual) Band Neutrophils % Lymphocytes % Lymphocytes % (Manual) Monocytes % Monocytes % (Manual) Eosinophils % Eosinophils % (Manual) Basophils % Basophils % (Manual) Myelocytes % (Man) Promyelocytes % (Man) Blast Cells % (Manual) Nucleated RBC % Metamyelocytes Hypochromia Platelet Estimate Polychromasia Poikilocytosis Anisocytosis Microcytosis Macrocytosis Ovalocytes PT with INR INR PTT (Actin FS) Anticoagulation Therapy No Result Required. No Result Required. Puncture Site Left radial Left radial ABG pH 7.14 L* 7.36 ABG pCO2 at Pt Temp > 100 H* 72.8 H* ABG pO2 at Pt Temp 57.1 L 62.4 L ABG HCO3 No Result Required. 39.8 H ABG O2 Sat (Measured) 80.0 L 91.1 L ABG O2 Content 14.7 L 16.7 ABG Base Excess No Result Required. 11.4 H Neto Test Positive Positive Carboxyhemoglobin Methemoglobin O2 Delivery Device No Result Required. No Result Required. Oxygen Flow Rate Yes Yes Vent Mode No Result Required. No Result Required. Vent Rate No Result Required. No Result Required. Mechanical Rate No Result Required. No Result Required. PEEP Pressure Support Vent No Result Required. No Result Required. Sodium Potassium Chloride Carbon Dioxide Anion Gap BUN Creatinine Est GFR (CKD-EPI)AfAm Est GFR (CKD-EPI)NonAf Random Glucose Lactic Acid 1.2 Calcium Phosphorus Magnesium Total Bilirubin AST ALT Alkaline Phosphatase Troponin I B-Natriuretic Peptide Total Protein Albumin Urine Color Urine Appearance Urine pH Ur Specific Rudy Urine Protein Urine Glucose (UA) Urine Ketones Urine Blood Urine Nitrite Urine Bilirubin Urine Urobilinogen Ur Leukocyte Esterase Urine WBC (Auto) Urine RBC (Auto) Urine Casts (Auto) U Pathogenic Cast Auto U Epithel Cells (Auto) U Sm Round Cell (Auto) Urine Bacteria (Auto) 05/13/19 05/13/19 05/13/19 19:00 20:35 20:35 WBC 10.9 H RBC 4.35 Hgb 12.3 Hct 38.9 MCV 89.3 MCH 28.1 MCHC 31.5 L RDW 19.6 H Plt Count 304 MPV 7.2 L Absolute Neuts (auto) 10.2 H Total Counted 100 Neutrophils % 93.8 H Neutrophils % (Manual) 92.9 H Band Neutrophils % 0.0 Lymphocytes % 5.3 L D Lymphocytes % (Manual) 5.1 L D Monocytes % 0.7 L D Monocytes % (Manual) 0 L D Eosinophils % 0.0 D Eosinophils % (Manual) 0.0 Basophils % 0.2 Basophils % (Manual) 0.0 Myelocytes % (Man) 2 D Promyelocytes % (Man) 0 Blast Cells % (Manual) 0 Nucleated RBC % 1 H Metamyelocytes 0 Hypochromia 0 Platelet Estimate Normal Polychromasia 2+ Poikilocytosis 1+ Anisocytosis 1+ Microcytosis 2+ Macrocytosis 1+ Ovalocytes 1+ PT with INR INR PTT (Actin FS) Anticoagulation Therapy No Result Required. Puncture Site Right radial ABG pH 7.41 ABG pCO2 at Pt Temp 60.4 H ABG pO2 at Pt Temp 64.2 L ABG HCO3 37.2 H ABG O2 Sat (Measured) 92.9 L ABG O2 Content 16.4 ABG Base Excess 10.5 H Neto Test Positive Carboxyhemoglobin Methemoglobin O2 Delivery Device Vent Oxygen Flow Rate 100% Vent Mode No Result Required. Vent Rate 18 Mechanical Rate No Result Required. PEEP 8.0 Pressure Support Vent 500 Sodium 136 Potassium 6.4 H* Chloride 94 L Carbon Dioxide 39 H Anion Gap 4 L BUN 43.9 H Creatinine 1.2 Est GFR (CKD-EPI)AfAm 78.43 Est GFR (CKD-EPI)NonAf 67.67 Random Glucose 134 H Lactic Acid Calcium 8.7 Phosphorus Magnesium Total Bilirubin 0.4 AST 6 L ALT 13 Alkaline Phosphatase 80 Troponin I B-Natriuretic Peptide Total Protein 6.3 L Albumin 2.7 L Urine Color Urine Appearance Urine pH Ur Specific Rudy Urine Protein Urine Glucose (UA) Urine Ketones Urine Blood Urine Nitrite Urine Bilirubin Urine Urobilinogen Ur Leukocyte Esterase Urine WBC (Auto) Urine RBC (Auto) Urine Casts (Auto) U Pathogenic Cast Auto U Epithel Cells (Auto) U Sm Round Cell (Auto) Urine Bacteria (Auto) 05/13/19 05/14/19 05/14/19 23:59 00:00 05:56 WBC RBC Hgb Hct MCV MCH MCHC RDW Plt Count MPV Absolute Neuts (auto) Total Counted Neutrophils % Neutrophils % (Manual) Band Neutrophils % Lymphocytes % Lymphocytes % (Manual) Monocytes % Monocytes % (Manual) Eosinophils % Eosinophils % (Manual) Basophils % Basophils % (Manual) Myelocytes % (Man) Promyelocytes % (Man) Blast Cells % (Manual) Nucleated RBC % Metamyelocytes Hypochromia Platelet Estimate Polychromasia Poikilocytosis Anisocytosis Microcytosis Macrocytosis Ovalocytes PT with INR 12.70 INR 1.08 PTT (Actin FS) Anticoagulation Therapy No Result Required. Puncture Site Right radial ABG pH 7.36 ABG pCO2 at Pt Temp 69.3 H ABG pO2 at Pt Temp 77.7 L ABG HCO3 37.8 H ABG O2 Sat (Measured) 95.2 ABG O2 Content 16.8 ABG Base Excess 10.0 H Neto Test Positive Carboxyhemoglobin Methemoglobin O2 Delivery Device No Result Required. Oxygen Flow Rate No Result Required. Vent Mode No Result Required. Vent Rate No Result Required. Mechanical Rate No Result Required. PEEP 10.0 Pressure Support Vent No Result Required. Sodium 137 Potassium 5.9 H Chloride 92 L Carbon Dioxide 39 H Anion Gap 6 L BUN 45.1 H Creatinine 1.4 H Est GFR (CKD-EPI)AfAm 65.09 Est GFR (CKD-EPI)NonAf 56.16 Random Glucose 163 H Lactic Acid Calcium 8.9 Phosphorus Magnesium Total Bilirubin AST ALT Alkaline Phosphatase Troponin I B-Natriuretic Peptide Total Protein Albumin Urine Color Urine Appearance Urine pH Ur Specific Rudy Urine Protein Urine Glucose (UA) Urine Ketones Urine Blood Urine Nitrite Urine Bilirubin Urine Urobilinogen Ur Leukocyte Esterase Urine WBC (Auto) Urine RBC (Auto) Urine Casts (Auto) U Pathogenic Cast Auto U Epithel Cells (Auto) U Sm Round Cell (Auto) Urine Bacteria (Auto) 19 05/14/19 05/14/19 05:56 05:56 06:30 WBC 10.1 H RBC 4.61 Hgb 12.9 Hct 41.4 MCV 89.7 MCH 27.9 MCHC 31.1 L RDW 19.2 H Plt Count 299 MPV 6.9 L Absolute Neuts (auto) Total Counted Neutrophils % Neutrophils % (Manual) Band Neutrophils % Lymphocytes % Lymphocytes % (Manual) Monocytes % Monocytes % (Manual) Eosinophils % Eosinophils % (Manual) Basophils % Basophils % (Manual) Myelocytes % (Man) Promyelocytes % (Man) Blast Cells % (Manual) Nucleated RBC % Metamyelocytes Hypochromia Platelet Estimate Polychromasia Poikilocytosis Anisocytosis Microcytosis Macrocytosis Ovalocytes PT with INR INR PTT (Actin FS) Anticoagulation Therapy No Result Required. Puncture Site Right radial ABG pH 7.32 L ABG pCO2 at Pt Temp 76.9 H* ABG pO2 at Pt Temp 99.7 ABG HCO3 38.2 H ABG O2 Sat (Measured) 97.2 ABG O2 Content 17.7 ABG Base Excess 9.3 H Neto Test Positive Carboxyhemoglobin Methemoglobin O2 Delivery Device Vent Oxygen Flow Rate Yes Vent Mode No Result Required. Vent Rate 14 Mechanical Rate No Result Required. PEEP 10.0 Pressure Support Vent No Result Required. Sodium 136 Potassium 6.0 H Chloride 93 L Carbon Dioxide 38 H Anion Gap 6 L BUN 47.6 H Creatinine 1.3 Est GFR (CKD-EPI)AfAm 71.19 Est GFR (CKD-EPI)NonAf 61.43 Random Glucose 111 H Lactic Acid Calcium 9.1 Phosphorus 3.7 Magnesium 2.7 H Total Bilirubin AST ALT Alkaline Phosphatase Troponin I B-Natriuretic Peptide 382.0 H Total Protein Albumin Urine Color Urine Appearance Urine pH Ur Specific Rudy Urine Protein Urine Glucose (UA) Urine Ketones Urine Blood Urine Nitrite Urine Bilirubin Urine Urobilinogen Ur Leukocyte Esterase Urine WBC (Auto) Urine RBC (Auto) Urine Casts (Auto) U Pathogenic Cast Auto U Epithel Cells (Auto) U Sm Round Cell (Auto) Urine Bacteria (Auto) ASSESSMENT/PLAN: Acute on chronic hypercapneic hypoxic respiratory failure COPD OHS OSAS HTN CHF GERD MDD R/O PNA Wean FiO2 as tolerated: saturation: 88% to 92% Medrol ABX coverage per ID BD TX standing Strict I & O Follow cultures VTE prophylaxis GI prophylaxis Follow CE Follow Potassium Requires ICU monitoring Dr Donaldson Critical care time spent in reviewing chart, evaluating patient and formulating plan - 36 minutes.
[2019-05-14] MEDS ORDERED: SPIRONOLACTONE 25 MG TABLET (FP) NGT SCH (10:00)
[2019-05-14] MEDS: CLOTRIMAZOLE 1% CREAM 15 GM TUBE TP SCH ×2 (10:44→23:07)
[2019-05-14] MEDS: ENOXAPARIN NA (PORCINE) 30 MG/0.3 ML DISP.SYRIN SQ SCH ×2 (10:45→23:08)
[2019-05-14] MEDS: PANTOPRAZOLE SODIUM 40 MG VIAL IVPUSH SCH ×2 (10:46→23:10)
[2019-05-14] MEDS: methylPREDNISolone NA SUCC 40 MG/1 ML VIAL IVPUSH SCH ×2 (10:46→23:10)
[2019-05-14] MEDS: ESCITALOPRAM OXALATE 10 MG TABLET (FP) NGT SCH (10:49)
[2019-05-14] MEDS: MUPIROCIN 2% TOPICAL OINTMENT FOR DECOLONIZATION NS SCH ×2 (10:49→23:06)
[2019-05-14] MEDS ORDERED: PROPOFOL 1,000,000 MCG/100 ML VIAL ONE ×2 (11:24→17:30)
--- NOTE | 2019-05-14 11:27 | PN ---
Physical Exam: SUBJECTIVE: Patient seen and examined at bedside. He is intubated and sedated. No significant events noted per nurse. He was on 100% FiO2, I instructed nurse to decrease to 50%. OBJECTIVE: Vital Signs Period Temp Pulse Resp BP Sys/Melgoza Pulse Ox Last 24 Hr 98.1 F-99 F 72-88 14-23 86-128/63-90 88-100 GENERAL: A&Ox0, intubated and sedated EYES: PERRLA, EOMI ENT: Moist mucus membranes NECK: Mild JVD noted LUNGS: Mechanical breath sounds HEART: RRR, no murmurs ABDOMEN: Morbidly obese, soft, nontender, BS present MUSCULOSKELETAL: No CVA Tenderness EXTREMITIES: 2+ pulses, large extremities, 1+ edema noted NEUROLOGICAL: Unable to assess due to mental status Laboratory Results - last 24 hr 05/13/19 05/13/19 05/13/19 11:20 11:25 11:25 WBC 11.9 H RBC 4.39 Hgb 12.2 Hct 39.6 MCV 90.3 MCH 27.8 MCHC 30.7 L RDW 19.4 H Plt Count 286 D MPV 6.8 L Absolute Neuts (auto) 10.2 H Total Counted Neutrophils % 86.1 H Neutrophils % (Manual) Band Neutrophils % Lymphocytes % 8.6 D Lymphocytes % (Manual) Monocytes % 4.1 D Monocytes % (Manual) Eosinophils % 0.3 D Eosinophils % (Manual) Basophils % 0.9 D Basophils % (Manual) Myelocytes % (Man) Promyelocytes % (Man) Blast Cells % (Manual) Nucleated RBC % 1 H Metamyelocytes Hypochromia Platelet Estimate Polychromasia Poikilocytosis Anisocytosis Microcytosis Macrocytosis Ovalocytes PT with INR 13.20 H INR 1.12 H PTT (Actin FS) 39.5 H Anticoagulation Therapy No Result Required. Puncture Site No Result Required. ABG pH 7.21 L ABG pCO2 at Pt Temp > 100 H* ABG pO2 at Pt Temp 50.6 L ABG HCO3 0 L ABG O2 Sat (Measured) 75.4 L ABG O2 Content 15.6 ABG Base Excess 0 Neto Test No Result Required. Carboxyhemoglobin Methemoglobin O2 Delivery Device No Result Required. Oxygen Flow Rate No Result Required. Vent Mode No Result Required. Vent Rate No Result Required. Mechanical Rate No Result Required. PEEP Pressure Support Vent No Result Required. Sodium Potassium Chloride Carbon Dioxide Anion Gap BUN Creatinine Est GFR (CKD-EPI)AfAm Est GFR (CKD-EPI)NonAf Random Glucose Lactic Acid Calcium Phosphorus Magnesium Total Bilirubin AST ALT Alkaline Phosphatase Troponin I B-Natriuretic Peptide Total Protein Albumin Urine Color Urine Appearance Urine pH Ur Specific [place] Urine Protein Urine Glucose (UA) Urine Ketones Urine Blood Urine Nitrite Urine Bilirubin Urine Urobilinogen Ur Leukocyte Esterase Urine WBC (Auto) Urine RBC (Auto) Urine Casts (Auto) U Pathogenic Cast Auto U Epithel Cells (Auto) U Sm Round Cell (Auto) Urine Bacteria (Auto) 05/13/19 05/13/19 05/13/19 11:25 11:25 11:28 WBC RBC Hgb Hct MCV MCH MCHC RDW Plt Count MPV Absolute Neuts (auto) Total Counted Neutrophils % Neutrophils % (Manual) Band Neutrophils % Lymphocytes % Lymphocytes % (Manual) Monocytes % Monocytes % (Manual) Eosinophils % Eosinophils % (Manual) Basophils % Basophils % (Manual) Myelocytes % (Man) Promyelocytes % (Man) Blast Cells % (Manual) Nucleated RBC % Metamyelocytes Hypochromia Platelet Estimate Polychromasia Poikilocytosis Anisocytosis Microcytosis Macrocytosis Ovalocytes PT with INR Cancelled INR Cancelled PTT (Actin FS) Anticoagulation Therapy Puncture Site ABG pH ABG pCO2 at Pt Temp ABG pO2 at Pt Temp ABG HCO3 ABG O2 Sat (Measured) ABG O2 Content ABG Base Excess Neto Test Carboxyhemoglobin Methemoglobin O2 Delivery Device Oxygen Flow Rate Vent Mode Vent Rate Mechanical Rate PEEP Pressure Support Vent Sodium 139 Potassium 5.2 H Chloride 95 L Carbon Dioxide 41 H Anion Gap 2 L BUN 39.2 H Creatinine 1.1 Est GFR (CKD-EPI)AfAm 87.13 Est GFR (CKD-EPI)NonAf 75.17 Random Glucose 109 H Lactic Acid 0.6 Calcium 8.8 Phosphorus Magnesium Total Bilirubin 0.3 AST 6 L ALT 14 Alkaline Phosphatase 84 Troponin I < 0.02 B-Natriuretic Peptide Total Protein 6.3 L Albumin 2.7 L Urine Color Urine Appearance Urine pH Ur Specific [place] Urine Protein Urine Glucose (UA) Urine Ketones Urine Blood Urine Nitrite Urine Bilirubin Urine Urobilinogen Ur Leukocyte Esterase Urine WBC (Auto) Urine RBC (Auto) Urine Casts (Auto) U Pathogenic Cast Auto U Epithel Cells (Auto) U Sm Round Cell (Auto) Urine Bacteria (Auto) 05/13/19 05/13/19 05/13/19 12:37 12:59 13:05 WBC RBC Hgb Hct MCV MCH MCHC RDW Plt Count MPV Absolute Neuts (auto) Total Counted Neutrophils % Neutrophils % (Manual) Band Neutrophils % Lymphocytes % Lymphocytes % (Manual) Monocytes % Monocytes % (Manual) Eosinophils % Eosinophils % (Manual) Basophils % Basophils % (Manual) Myelocytes % (Man) Promyelocytes % (Man) Blast Cells % (Manual) Nucleated RBC % Metamyelocytes Hypochromia Platelet Estimate Polychromasia Poikilocytosis Anisocytosis Microcytosis Macrocytosis Ovalocytes PT with INR INR PTT (Actin FS) Anticoagulation Therapy No Result Required. Puncture Site Left radial ABG pH 7.19 L* ABG pCO2 at Pt Temp > 100 H* ABG pO2 at Pt Temp 70 L ABG HCO3 0 L ABG O2 Sat (Measured) 89.5 L ABG O2 Content 15.6 ABG Base Excess 0 Neto Test Positive Carboxyhemoglobin 2.6 H Methemoglobin 0.5 O2 Delivery Device No Result Required. Oxygen Flow Rate No Result Required. Vent Mode No Result Required. Vent Rate No Result Required. Mechanical Rate No Result Required. PEEP Pressure Support Vent No Result Required. Sodium Potassium Chloride Carbon Dioxide Anion Gap BUN Creatinine Est GFR (CKD-EPI)AfAm Est GFR (CKD-EPI)NonAf Random Glucose Lactic Acid Calcium Phosphorus Magnesium Total Bilirubin AST ALT Alkaline Phosphatase Troponin I B-Natriuretic Peptide Total Protein Albumin Urine Color Yellow Urine Appearance Cloudy Urine pH 5.0 Ur Specific [place] 1.020 Urine Protein Trace Urine Glucose (UA) Negative Urine Ketones Negative Urine Blood Negative Urine Nitrite Negative Urine Bilirubin Negative Urine Urobilinogen 1.0 Ur Leukocyte Esterase 1+ H Urine WBC (Auto) 13 Urine RBC (Auto) 0 Urine Casts (Auto) 83 U Pathogenic Cast Auto None seen U Epithel Cells (Auto) 16.9 U Sm Round Cell (Auto) None seen Urine Bacteria (Auto) 2654.7 05/13/19 05/13/19 05/13/19 14:01 16:00 17:10 WBC RBC Hgb Hct MCV MCH MCHC RDW Plt Count MPV Absolute Neuts (auto) Total Counted Neutrophils % Neutrophils % (Manual) Band Neutrophils % Lymphocytes % Lymphocytes % (Manual) Monocytes % Monocytes % (Manual) Eosinophils % Eosinophils % (Manual) Basophils % Basophils % (Manual) Myelocytes % (Man) Promyelocytes % (Man) Blast Cells % (Manual) Nucleated RBC % Metamyelocytes Hypochromia Platelet Estimate Polychromasia Poikilocytosis Anisocytosis Microcytosis Macrocytosis Ovalocytes PT with INR INR PTT (Actin FS) Anticoagulation Therapy No Result Required. No Result Required. Puncture Site Left radial Left radial ABG pH 7.14 L* 7.36 ABG pCO2 at Pt Temp > 100 H* 72.8 H* ABG pO2 at Pt Temp 57.1 L 62.4 L ABG HCO3 No Result Required. 39.8 H ABG O2 Sat (Measured) 80.0 L 91.1 L ABG O2 Content 14.7 L 16.7 ABG Base Excess No Result Required. 11.4 H Neto Test Positive Positive Carboxyhemoglobin Methemoglobin O2 Delivery Device No Result Required. No Result Required. Oxygen Flow Rate Yes Yes Vent Mode No Result Required. No Result Required. Vent Rate No Result Required. No Result Required. Mechanical Rate No Result Required. No Result Required. PEEP Pressure Support Vent No Result Required. No Result Required. Sodium Potassium Chloride Carbon Dioxide Anion Gap BUN Creatinine Est GFR (CKD-EPI)AfAm Est GFR (CKD-EPI)NonAf Random Glucose Lactic Acid 1.2 Calcium Phosphorus Magnesium Total Bilirubin AST ALT Alkaline Phosphatase Troponin I B-Natriuretic Peptide Total Protein Albumin Urine Color Urine Appearance Urine pH Ur Specific [place] Urine Protein Urine Glucose (UA) Urine Ketones Urine Blood Urine Nitrite Urine Bilirubin Urine Urobilinogen Ur Leukocyte Esterase Urine WBC (Auto) Urine RBC (Auto) Urine Casts (Auto) U Pathogenic Cast Auto U Epithel Cells (Auto) U Sm Round Cell (Auto) Urine Bacteria (Auto) 05/13/19 05/13/19 05/13/19 19:00 20:35 20:35 WBC 10.9 H RBC 4.35 Hgb 12.3 Hct 38.9 MCV 89.3 MCH 28.1 MCHC 31.5 L RDW 19.6 H Plt Count 304 MPV 7.2 L Absolute Neuts (auto) 10.2 H Total Counted 100 Neutrophils % 93.8 H Neutrophils % (Manual) 92.9 H Band Neutrophils % 0.0 Lymphocytes % 5.3 L D Lymphocytes % (Manual) 5.1 L D Monocytes % 0.7 L D Monocytes % (Manual) 0 L D Eosinophils % 0.0 D Eosinophils % (Manual) 0.0 Basophils % 0.2 Basophils % (Manual) 0.0 Myelocytes % (Man) 2 D Promyelocytes % (Man) 0 Blast Cells % (Manual) 0 Nucleated RBC % 1 H Metamyelocytes 0 Hypochromia 0 Platelet Estimate Normal Polychromasia 2+ Poikilocytosis 1+ Anisocytosis 1+ Microcytosis 2+ Macrocytosis 1+ Ovalocytes 1+ PT with INR INR PTT (Actin FS) Anticoagulation Therapy No Result Required. Puncture Site Right radial ABG pH 7.41 ABG pCO2 at Pt Temp 60.4 H ABG pO2 at Pt Temp 64.2 L ABG HCO3 37.2 H ABG O2 Sat (Measured) 92.9 L ABG O2 Content 16.4 ABG Base Excess 10.5 H Neto Test Positive Carboxyhemoglobin Methemoglobin O2 Delivery Device Vent Oxygen Flow Rate 100% Vent Mode No Result Required. Vent Rate 18 Mechanical Rate No Result Required. PEEP 8.0 Pressure Support Vent 500 Sodium 136 Potassium 6.4 H* Chloride 94 L Carbon Dioxide 39 H Anion Gap 4 L BUN 43.9 H Creatinine 1.2 Est GFR (CKD-EPI)AfAm 78.43 Est GFR (CKD-EPI)NonAf 67.67 Random Glucose 134 H Lactic Acid Calcium 8.7 Phosphorus Magnesium Total Bilirubin 0.4 AST 6 L ALT 13 Alkaline Phosphatase 80 Troponin I B-Natriuretic Peptide Total Protein 6.3 L Albumin 2.7 L Urine Color Urine Appearance Urine pH Ur Specific [place] Urine Protein Urine Glucose (UA) Urine Ketones Urine Blood Urine Nitrite Urine Bilirubin Urine Urobilinogen Ur Leukocyte Esterase Urine WBC (Auto) Urine RBC (Auto) Urine Casts (Auto) U Pathogenic Cast Auto U Epithel Cells (Auto) U Sm Round Cell (Auto) Urine Bacteria (Auto) 05/13/19 05/14/19 05/14/19 23:59 00:00 05:56 WBC RBC Hgb Hct MCV MCH MCHC RDW Plt Count MPV Absolute Neuts (auto) Total Counted Neutrophils % Neutrophils % (Manual) Band Neutrophils % Lymphocytes % Lymphocytes % (Manual) Monocytes % Monocytes % (Manual) Eosinophils % Eosinophils % (Manual) Basophils % Basophils % (Manual) Myelocytes % (Man) Promyelocytes % (Man) Blast Cells % (Manual) Nucleated RBC % Metamyelocytes Hypochromia Platelet Estimate Polychromasia Poikilocytosis Anisocytosis Microcytosis Macrocytosis Ovalocytes PT with INR 12.70 INR 1.08 PTT (Actin FS) Anticoagulation Therapy No Result Required. Puncture Site Right radial ABG pH 7.36 ABG pCO2 at Pt Temp 69.3 H ABG pO2 at Pt Temp 77.7 L ABG HCO3 37.8 H ABG O2 Sat (Measured) 95.2 ABG O2 Content 16.8 ABG Base Excess 10.0 H Neto Test Positive Carboxyhemoglobin Methemoglobin O2 Delivery Device No Result Required. Oxygen Flow Rate No Result Required. Vent Mode No Result Required. Vent Rate No Result Required. Mechanical Rate No Result Required. PEEP 10.0 Pressure Support Vent No Result Required. Sodium 137 Potassium 5.9 H Chloride 92 L Carbon Dioxide 39 H Anion Gap 6 L BUN 45.1 H Creatinine 1.4 H Est GFR (CKD-EPI)AfAm 65.09 Est GFR (CKD-EPI)NonAf 56.16 Random Glucose 163 H Lactic Acid Calcium 8.9 Phosphorus Magnesium Total Bilirubin AST ALT Alkaline Phosphatase Troponin I B-Natriuretic Peptide Total Protein Albumin Urine Color Urine Appearance Urine pH Ur Specific [place] Urine Protein Urine Glucose (UA) Urine Ketones Urine Blood Urine Nitrite Urine Bilirubin Urine Urobilinogen Ur Leukocyte Esterase Urine WBC (Auto) Urine RBC (Auto) Urine Casts (Auto) U Pathogenic Cast Auto U Epithel Cells (Auto) U Sm Round Cell (Auto) Urine Bacteria (Auto) 05/14/19 05/14/19 05/14/19 05:56 05:56 06:30 WBC 10.1 H RBC 4.61 Hgb 12.9 Hct 41.4 MCV 89.7 MCH 27.9 MCHC 31.1 L RDW 19.2 H Plt Count 299 MPV 6.9 L Absolute Neuts (auto) Total Counted Neutrophils % Neutrophils % (Manual) Band Neutrophils % Lymphocytes % Lymphocytes % (Manual) Monocytes % Monocytes % (Manual) Eosinophils % Eosinophils % (Manual) Basophils % Basophils % (Manual) Myelocytes % (Man) Promyelocytes % (Man) Blast Cells % (Manual) Nucleated RBC % Metamyelocytes Hypochromia Platelet Estimate Polychromasia Poikilocytosis Anisocytosis Microcytosis Macrocytosis Ovalocytes PT with INR INR PTT (Actin FS) Anticoagulation Therapy No Result Required. Puncture Site Right radial ABG pH 7.32 L ABG pCO2 at Pt Temp 76.9 H* ABG pO2 at Pt Temp 99.7 ABG HCO3 38.2 H ABG O2 Sat (Measured) 97.2 ABG O2 Content 17.7 ABG Base Excess 9.3 H Neto Test Positive Carboxyhemoglobin Methemoglobin O2 Delivery Device Vent Oxygen Flow Rate Yes Vent Mode No Result Required. Vent Rate 14 Mechanical Rate No Result Required. PEEP 10.0 Pressure Support Vent No Result Required. Sodium 136 Potassium 6.0 H Chloride 93 L Carbon Dioxide 38 H Anion Gap 6 L BUN 47.6 H Creatinine 1.3 Est GFR (CKD-EPI)AfAm 71.19 Est GFR (CKD-EPI)NonAf 61.43 Random Glucose 111 H Lactic Acid Calcium 9.1 Phosphorus 3.7 Magnesium 2.7 H Total Bilirubin AST ALT Alkaline Phosphatase Troponin I B-Natriuretic Peptide 382.0 H Total Protein Albumin Urine Color Urine Appearance Urine pH Ur Specific [place] Urine Protein Urine Glucose (UA) Urine Ketones Urine Blood Urine Nitrite Urine Bilirubin Urine Urobilinogen Ur Leukocyte Esterase Urine WBC (Auto) Urine RBC (Auto) Urine Casts (Auto) U Pathogenic Cast Auto U Epithel Cells (Auto) U Sm Round Cell (Auto) Urine Bacteria (Auto) Active Medications Generic Name Dose Route Start Last Admin Trade Name Williamq PRN Reason Stop Dose Admin Albuterol/Ipratropium 1 amp 05/14/19 12:00 Duoneb - NEB RQID MINID Chlorhexidine Gluconate 1 applic 05/13/19 22:00 05/13/19 21:07 Hibiclens For Decolonization - TP 1 applic HS MINDI Administration Clotrimazole 1 applic 05/13/19 22:00 05/14/19 10:44 Lotrimin 1% Cream - TP 1 applic BID MINDI Administration Enoxaparin Sodium 40 mg 05/13/19 22:00 05/14/19 10:45 Lovenox - SQ 40 mg BID MINDI Administration Escitalopram Oxalate 10 mg 05/14/19 10:00 05/14/19 10:49 Lexapro - NGT 10 mg DAILY MINDI Administration Propofol 1,000,000 mcg in 100 mls @ 5.715 mls/hr 05/13/19 16:00 05/13/19 16: 00 Diprivan - IVPB 15 mcg/kg/min TITR MINDI 17.146 mls/hr Administration Protocol 5 MCG/KG/MIN Fentanyl 500 mcg/ Dextrose 100 mls @ 0 mls/hr 05/13/19 16:30 IVPB 05/14/19 16:29 TITR MINDI Titrate Piperacillin Sod/Tazobactam 100 mls @ 200 mls/hr 05/14/19 16:00 Sod 4.5 gm/ Dextrose IVPB Q8H-IV MINDI Protocol Methylprednisolone Sodium Succinate 60 mg 05/13/19 22:00 05/14/19 10:46 Solu-Medrol - IVPUSH 60 mg BID MINDI Administration Mupirocin 1 applic 05/13/19 22:00 05/14/19 10:49 Bactroban Ointment (For Decolonization) - NS 05/18/19 21:59 1 applic BID MINDI Administration Pantoprazole Sodium 40 mg 05/13/19 22:00 05/14/19 10:46 Protonix Iv IVPUSH 40 mg BID MINDI Administration ASSESSMENT/PLAN: 54 year old with a past medical history of COPD, OHS, RANJIT, HTN, CHF (last echo in March showing normal EF), GERD, MDD who presented [facility] for respiratory failure #Acute on chronic hypercapneic hypoxic respiratory failure #COPD #OHS #RANJIT #HTN #GERD NEUROLOGIC - intubated and sedated - continue propofol and wean when ready to extubate - hold home gabapentin CARDIOLOGY -last echo 04/14 showing normal EF, normal left ventricle function and size -hold spironolactone in setting of hyperkalemia RESPIRATORY - intubated with vent settings TV 400, RR 18, PEEP 10, FIO2 50% -repeat ABG at noon as prior ABG was worsening -continue Solumedrol 60mg IV bid -treat for pneumonia RENAL -Hyperkalemia at 6 today -given insulin/D50 and kayexalate through GT -renal consulted for persistent hyperkalemia -spironolactone held GASTROINTESTINAL -Protonix 40mg bid prophylaxis while intubated -hold home ranitidine while on protonix INFECTIOUS DISEASE - febrile 101.5 in [facility] -concern for pneumonia -CXR shows severely enlarged heart -cultures pending -on vanc/zosyn -ID consultation HEMATOLOGY - no acute issues PSYCHIATRIC - continue home Lexapro 10mg to avoid discontinuation syndrome F/E/N - no standing fluids - continue to monitor electrolytes and replete as necessary - NPO while intubated LINES - L AC inserted 05/13 - R AC inserted 05/13 PROPHYLAXIS - on Lovenox 40mg subq bid - protonix 40mg IV bid while intubated CODE - full code DISPO - continue to monitor in ICU Visit type - Emergency Visit Emergency Visit: No - New Patient This patient is new to me today: Yes Date on this admission: 05/14/19 - Critical Care Critical Care patient: Yes Total Critical Care Time (in minutes): 36 Critical Care Statement: The care of this patient involved high complexity decision making to prevent further life threatening deterioration of the patient 's condition and/or to evaluate & treat vital organ system(s) failure or risk of failure. ATTENDING PHYSICIAN STATEMENT I saw and evaluated the patient. I reviewed the resident's note and discussed the case with the resident. I agree with the resident's findings and plan as documented. SUBJECTIVE: OBJECTIVE: ASSESSMENT AND PLAN:
[2019-05-14] MEDS: PROPOFOL 1,000,000 MCG/100 ML VIAL IVPB SCH ×3 (11:30→20:30)
--- NOTE | 2019-05-14 11:36 | EKG ---
Test Reason : Blood Pressure : / mmHG Vent. Rate : 091 BPM Atrial Rate : 091 BPM P-R Int : 152 ms QRS Dur : 094 ms QT Int : 354 ms P-R-T Axes : 068 067 029 degrees QTc Int : 435 ms NORMAL SINUS RHYTHM NORMAL ECG WHEN COMPARED WITH ECG OF 04-APR-2019 17:43, NO SIGNIFICANT CHANGE WAS FOUND Confirmed by DARLIN FORD MD ([id number]) on 05/14/2019 11:35:48 AM Referred By: Confirmed By:DARLIN FORD MD
[2019-05-14] MEDS: ALBUTEROL SO4 2.5/IPRATROPIUM 0.5 INH SOL 3 ML VIAL.NEB. NEB SCH ×3 (11:40→21:07)
--- NOTE | 2019-05-14 13:25 | CONS ---
DATE OF CONSULTATION: DATE OF DICTATION: 05/14/2019 REQUESTED BY: May Echavarria MD This is a 54-year-old man with a history of COPD, hypertension, he has had DVT in the past, he has morbid obesity with obstructive sleep apnea. He was recently hospitalized April [address] [facility] for acute respiratory failure. He was not intubated during that admission. He was treated with Rocephin and Zithromax. He was discharged back to the shelter. He recently, on May 04, completed a course of Augmentin for a UTI. Apparently he has not been using his CPAP on a nightly basis due to complaints of it being uncomfortable. He has also been receiving oxygen nasal cannula during the day. He was noted to become more lethargic at the shelter and was found to have fever of 101.5. He was brought to the emergency room. In the ER, he was placed on BiPAP, he was given 3 rounds of DuoNeb steroids and antibiotics. He was found to be in hypercapnic respiratory failure but did not improve with the BiPAP so he was intubated in the ER. He is now resting on the vent in the ICU. Per the admission H&P, there were no recent sick contacts, cough, chest pain, fever or chills prior to arrival in the ER. There was no nausea, vomiting, or abdominal pain as well. He is allergic to PISTACHIOS. SOCIAL HISTORY: He is a former smoker. Family history is not obtainable. His past medical history is notable for CHF, pulmonary hypertension, COPD, obstructive sleep apnea, CHF, GERD, and he has a history of prior DVT, which is per the shelter records. His medications at the shelter include Neurontin, zinc oxide ointment, Lexapro, vitamin C, ranitidine, telmisartan, Victoza, vitamin D, enoxaparin, metoprolol, Aldactone, cranberry extract, nebulizer treatment. Review of systems is as per HPI, obtained through the ER and shelter records as the patient cannot give any history. He was treated with vancomycin and Zosyn in the ER. PHYSICAL EXAMINATION: General: He is sedated. He is orally intubated. HEENT: Normocephalic. Eyes are anicteric. Neck: Supple. Lungs: Diminished breath sounds at the bases. Heart: He has distant heart sounds. Abdomen: Soft. Extremities: Without edema. Vital Signs: He weighs 186 kg. Temperature is 98.5. Pulse 82. Blood pressure 128/90. His FiO2 on the vent is 60%. His labs are notable for a white count of 10.1, hemoglobin 12.9, platelets 299. Most recent gas, his pH is 7.32, with a pCO2 of 76 and a pO2 of 99. His electrolytes are notable for a BUN of 6 and creatinine 47.6, with an elevated potassium of 6. Urinalysis has 1+ leukocytes with 13 white cells. Cultures are pending. Chest x-ray notable for progressive bibasilar pleural changes and endotracheal tube in place. In summary, this is a morbidly obese 54-year-old man with: 1. Acute on chronic hypercapnic respiratory failure, cannot rule out pneumonia in this setting, so it would be hospital acquired as he was recently in the hospital, COPD, obstructive sleep apnea in the setting of morbid obesity. Would agree with vancomycin and Zosyn. Would follow up blood cultures. Would obtain sputum cultures and urinary antigens. 2. COPD with obstructive sleep apnea, noncompliant with medications. 3. Morbid obesity. 4. Hyperkalemia, management per the ICU team. Further recommendations to follow. Over 35 minutes was spent in the care of this critically ill ICU patient. BRIA SAEED M.D. [id number]
--- NOTE | 2019-05-14 13:30 | CON.CARD ---
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 lung sounds distant based on his body habitus. GENERAL: The patient was somnolent, but arousable by voice, confused in ER, morbidly obese; subsequently intubated and sedated. HEAD: Normocephalic, atraumatic. - History Source History Provided By: Medical Record Limitations to Obtaining History: Unresponsive (now intubated and sedated ( initially confused but answering questions in ER)) - Past Medical History Cardio/Vascular: Yes: CHF (diastolic), Pulmonary Hypertension Pulmonary: Yes: COPD, O2 Dependent - Alcohol/Substance Use Hx Alcohol Use: No - Smoking History Smoking history: Former smoker Have you smoked in the past 12 months: No Aproximately how many cigarettes per day: 10 If you are a former smoker, when did you quit?: 2018 - Social History Usual Living Arrangement: Alone Occupation: on disability, PR patient Home Medications - Allergies Allergies/Adverse Reactions: Allergies Allergy/AdvReac Type Severity Reaction Status Date / Time pistachio nut Allergy Verified 05/13/19 10:44 - Home Medications Home Medications: Ambulatory Orders Acetaminophen 500 mg PO Q6H PRN 04/04/19 Albuterol 2.5/Ipratropium 0.5 [Duoneb -] 1 amp NEB PRN PRN 04/04/19 Calcium Carbonate [Tums] 200 mg PO BID PRN 04/04/19 Enoxaparin [Lovenox -] 40 mg SQ DAILY 04/04/19 Ergocalciferol [Vitamin D2] 50,000 unit PO WEEKLY 04/04/19 Escitalopram Oxalate [Lexapro -] 10 mg PO DAILY 04/04/19 Gabapentin [Neurontin] 100 mg PO TID 04/04/19 Liraglutide [Victoza -] 0.6 mg SQ DAILY 04/04/19 Mag Hydrox/Al Hydrox/Simeth [Mylanta Oral Suspension -] 15 ml PO TID PRN Magnesium Hydroxide [Milk of Magnesia] 30 ml PO DAILY PRN 04/04/19 Metoprolol Succinate 25 mg PO DAILY 04/04/19 Ranitidine [Zantac -] 150 mg PO BID 04/04/19 Spironolactone [Aldactone] 25 mg PO DAILY 04/04/19 Telmisartan [Micardis] 80 mg PO DAILY 04/04/19 Mag Hydrox/Al Hydrox/Simeth [Mylanta Oral Suspension -] 30 ml PO Q6H PRN cup Vit C/Dietary Supplement No.18 500 mg PO DAILY 05/13/19 Zinc Oxide 20% Topical Oint 1 applic TD DAILY 05/13/19 Review of Systems Unable to obtain ROS, reason: intubated; sedated - Risk Factors Known Risk Factors: Yes: Age, Gender, Physical Inactivity, Other (sleep apnea; morbid obesity; COPD) Vital Signs: Vital Signs Temperature 98.5 F 05/14/19 10:00 Pulse Rate 71 05/14/19 12:00 Respiratory Rate 18 05/14/19 12:00 Blood Pressure 101/69 05/14/19 12:00 O2 Sat by Pulse Oximetry (%) 96 05/13/19 23:10 Constitutional: Yes: Obese Eyes: Yes: Conjunctiva Clear HENT: Yes: Other Neck: Yes: Decreased ROM (intubated) Respiratory: Yes: Diminished, Mechanically Ventilated Gastrointestinal: Yes: Abdomen, Obese Renal/: No: Anuria JVD: No Carotid Bruit: No PMI: Non-Displaced Heart Sounds: Yes: S1, S2 Musculoskeletal: Yes: Joint Swelling Extremities: Yes: Other (sedated, intubated) Edema: No Peripheral Pulses WNL: Yes Integumentary: Yes: WNL Neurological: Yes: Other Psychiatric: Yes: Other - Other Data Labs, Other Data: CBC, BMP 05/14/19 05:56 05/14/19 05:56 INR, PTT INR 1.08 (0.83-1.09) 05/14/19 05:56 Troponin, BNP 05/14/19 05:56 B-Natriuretic Peptide 382.0 H Troponin, BNP 05/14/19 05:56 B-Natriuretic Peptide 382.0 H Abnormal Lab Results 05/14/19 05/14/19 05/14/19 05:56 05:56 06:30 WBC 10.1 H MCHC 31.1 L RDW 19.2 H MPV 6.9 L ABG pH 7.32 L ABG pCO2 at Pt Temp 76.9 H* ABG HCO3 38.2 H ABG Base Excess 9.3 H Potassium 6.0 H Chloride 93 L Carbon Dioxide 38 H Anion Gap 6 L BUN 47.6 H Random Glucose 111 H Magnesium 2.7 H B-Natriuretic Peptide 382.0 H Triglycerides 168 H Cholesterol 227 H Total LDL Cholesterol 156 H 05/14/19 16:00 WBC MCHC RDW MPV ABG pH ABG pCO2 at Pt Temp ABG HCO3 ABG Base Excess Potassium 5.6 H Chloride 94 L Carbon Dioxide 37 H Anion Gap 6 L BUN 47.8 H Random Glucose 130 H Magnesium B-Natriuretic Peptide Triglycerides Cholesterol Total LDL Cholesterol Ejection Fraction %: LVEF > or = 40 % (on 04/14 ECHO) Imaging - Results Chest X-ray: Image Reviewed EKG: Image Reviewed (normal study) Other: Image Reviewed (telemetry: NSR) Problem List - Problems (1) COPD exacerbation Code(s): J44.1 - CHRONIC OBSTRUCTIVE PULMONARY DISEASE W (ACUTE) EXACERBATION (2) HTN (hypertension) Code(s): I10 - ESSENTIAL (PRIMARY) HYPERTENSION (3) Acute on chronic respiratory failure with hypoxia and hypercapnia Assessment/Plan: Profound respiratory distress-->intubation; acidotic. 1st TNI < 0.02; f/u serially. EKG: Normal study. ECHO 03/2019: normal LVEF (however, limited study that could not assess regional wall motion, RV, or valves). F/u BUN/Cr, electrolytes, Is and Os, daily weight. Bronchodilators, O2, antibiotics per marketing operations consultant. Code(s): J96.21 - ACUTE AND CHRONIC RESPIRATORY FAILURE WITH HYPOXIA; J96.22 - ACUTE AND CHRONIC RESPIRATORY FAILURE WITH HYPERCAPNIA (4) Pulmonary HTN Code(s): I27.20 - PULMONARY HYPERTENSION, UNSPECIFIED (5) Morbid obesity Code(s): E66.01 - MORBID (SEVERE) OBESITY DUE TO EXCESS CALORIES (6) Sleep apnea Code(s): G47.30 - SLEEP APNEA, UNSPECIFIED Qualifiers: Sleep apnea type: obstructive Qualified Code(s): G47.33 - Obstructive sleep apnea (adult) (pediatric) (7) Diastolic dysfunction Code(s): I51.9 - HEART DISEASE, UNSPECIFIED (8) Hyperlipidemia Assessment/Plan: f/u lipid profile, and treat accordingly. Code(s): E78.5 - HYPERLIPIDEMIA, UNSPECIFIED (9) Hyperkalemia Assessment/Plan: Treat, and avoid medications that may exacerbate elevated K;f/u etiology. Code(s): E87.5 - HYPERKALEMIA Assessment/Plan CCU time spent: 75 minutes
[2019-05-14] MEDS ORDERED: PIPERACILLIN/TAZOB 4.5 GM 4.5 GM in DEXTROSE 5%-WATER 100 ML IVPB SCH (15:00)
[2019-05-14] MEDS ORDERED: DEXTROSE 5%-WATER 200 ML IVPB ONE (16:20)
[2019-05-14 16:40] LABS: BLOOD UREA NITROGEN 47.8 mg/dL (7-18); CALCIUM 9.1 mg/dL (8.5-10.1); CREATININE 1.3 mg/dL (0.55-1.3); POTASSIUM 5.6 mmol/L (3.5-5.1)
[2019-05-14] MEDS: CHLORHEXIDINE GLUCONATE 4% CLEANSER FOR DECOLONIZATION TP SCH (23:06)
[2019-05-15] MEDS ORDERED: DEXTROSE 5%-WATER 100 ML IVPB ONE ×4 (00:01→21:11)
[2019-05-15] MEDS ORDERED: SODIUM CHLORIDE 1,000 ML IV SCH (00:15)
[2019-05-15] MEDS ORDERED: fentaNYL CITRATE 250 MCG/5 ML VIAL ONE ×4 (00:23→19:49)
[2019-05-15] MEDS: PROPOFOL 1,000,000 MCG/100 ML VIAL IVPB SCH ×6 (02:13→22:07)
[2019-05-15] MEDS: PIPERACILLIN/TAZOB 4.5 GM 4.5 GM in DEXTROSE 5%-WATER 100 ML IVPB SCH ×3 (02:13→18:00)
[2019-05-15] MEDS: FENTANYL INJECTION 500 MCG in DEXTROSE 5%-WATER - 90 ML IVPB SCH ×4 (02:14→20:03)
[2019-05-15 06:37] LABS: HEMATOCRIT 38.6 % (35.4-49); HEMOGLOBIN 12.2 GM/dL (11.7-16.9); MCH 28.2 pg (25.7-33.7); MCHC 31.6 g/dl (32.0-35.9); MEAN PLT VOLUME 6.9 fl (7.5-11.1); PLATELET COUNT 286 K/MM3 (134-434); RBC 4.33 M/mm3 (4.00-5.60); RDW 19.1 % (11.9-15.9); WHITE BLOOD COUNT 10.6 K/mm3 (4.0-10.0)
--- NOTE | 2019-05-15 06:41 | PN ---
Progress Note (short form) - Note Progress Note: Chief Complaint: Events noted, notes reviewed, remains intubated and sedated, sinus rhythm noted in no distress History of Present Illness: Seen and examined in the ICU. Events noted, notes reviewed, remains intubated and sedated, sinus rhythm noted in no distress - Current Medication List Current Medications Albuterol/Ipratropium (Duoneb -) 1 amp NEB RQID [facility] Last Admin: 05/14/19 21:07 Dose: 1 amp Chlorhexidine Gluconate (Hibiclens For Decolonization -) 1 applic TP HS COUNTS INCLUDE 234 BEDS AT THE [facility] Last Admin: 05/14/19 23:06 Dose: 1 applic Clotrimazole (Lotrimin 1% Cream -) 1 applic TP BID COUNTS INCLUDE 234 BEDS AT THE [facility] Last Admin: 05/14/19 23:07 Dose: 1 applic Enoxaparin Sodium (Lovenox -) 40 mg SQ BID COUNTS INCLUDE 234 BEDS AT THE [facility] Last Admin: 05/14/19 23:08 Dose: 40 mg Escitalopram Oxalate (Lexapro -) 10 mg NGT DAILY COUNTS INCLUDE 234 BEDS AT THE [facility] Last Admin: 05/14/19 10:49 Dose: 10 mg Propofol (Diprivan -) 1,000,000 mcg in 100 mls @ 5.715 mls/hr IVPB TITR COUNTS INCLUDE 234 BEDS AT THE [facility]; Protocol Last Admin: 05/15/19 04:00 Dose: 25 mcg/kg/min, 28.576 mls/hr Piperacillin Sod/Tazobactam (Sod 4.5 gm/ Dextrose) 100 mls @ 200 mls/hr IVPB Q8H-IV [facility]; Protocol Last Admin: 05/15/19 02:13 Dose: 200 mls/hr Fentanyl 500 mcg/ Dextrose 100 mls @ 20 mls/hr IVPB TITR COUNTS INCLUDE 234 BEDS AT THE [facility] Last Admin: 05/15/19 02:14 Dose: 100 mcg/hr, 20 mls/hr Sodium Chloride (Normal Saline -) 1,000 mls @ 83 mls/hr IV ASDIR [facility] Stop: 05/15/19 12:18 Last Admin: 05/15/19 02:15 Dose: 83 mls/hr Methylprednisolone Sodium Succinate (Solu-Medrol -) 60 mg IVPUSH BID COUNTS INCLUDE 234 BEDS AT THE [facility] Last Admin: 05/14/19 23:10 Dose: 60 mg Mupirocin (Bactroban Ointment (For Decolonization) -) 1 applic NS BID COUNTS INCLUDE 234 BEDS AT THE [facility] Stop: 05/18/19 21:59 Last Admin: 05/14/19 23:06 Dose: 1 applic Pantoprazole Sodium (Protonix Iv) 40 mg IVPUSH BID [facility] Last Admin: 05/14/19 23:10 Dose: 40 mg Review of Systems Unable to obtain - Objective Vital Signs: Last Vital Signs Temp Pulse Resp BP Pulse Ox 98.7 F 63 22 H 104/73 96 05/14/19 18:00 05/14/19 22:00 05/15/19 06:35 05/15/19 02:00 05/14/19 10:35 Intake & Output 05/12/19 05/13/19 05/14/19 05/15/19 23:59 23:59 23:59 23:59 Intake Total 2218 770 Output Total 600 400 Balance 1618 370 Weight 410 lb 0.957 oz 410 lb 0.957 oz 399 lb 7.642 oz Neck: Supple Negative JVD No Bruit Cardiovascular: S1 S2 Regular Rate and Rhythm Respiratory: Diminished Breath Sounds at the Bases Bilateral Scattered Rhonchi Gastrointestinal: Soft Benign Normal Bowel Sounds Ext: Edema Labs: CBC, BMP 05/15/19 05:40 05/15/19 05:40 ABG Results ABG pH 7.32 (7.35-7.45) L 05/14/19 06:30 ABG pCO2 at Pt Temp 76.9 mmHg (35-45) H* 05/14/19 06:30 ABG pO2 at Pt Temp 99.7 mmHg (80-105) 05/14/19 06:30 ABG HCO3 38.2 mmol/L (22-27) H 05/14/19 06:30 ABG O2 Sat (Measured) 97.2 % (95-98) 05/14/19 06:30 ABG O2 Content 17.7 % vol (15-22) 05/14/19 06:30 ABG Base Excess 9.3 meq/l (-2-2) H 05/14/19 06:30 Troponin, BNP 05/14/19 05:56 B-Natriuretic Peptide 382.0 H Hepatic Panel Total Bilirubin 0.4 mg/dL (0.2-1) 05/13/19 20:35 AST 6 U/L (15-37) L 05/13/19 20:35 ALT 13 U/L (13-61) 05/13/19 20:35 Alkaline Phosphatase 80 U/L (45-117) 05/13/19 20:35 Albumin 2.7 g/dl (3.4-5.0) L 05/13/19 20:35 Assessment/Plan ASSESSMENT: 1. Acute hypoxemic/hypercapneic respiratory failure, related to 2. Acute exacerbation of chronic obstructive pulmonary disease, possible pneumonia 3. Morbid obesity/hypoventilation syndrome with 4. Severe pulmonary hypertension with cor pulmonale, clinical class II-III NYHA classification RV failure 5. Diastolic LV dysfunction with chronic class 0-I NYHA classification LV congestive heart failure, clinically compensated 6. Chronic kidney disease with Hyperkalemia, acute exacerbation 7. Hyponatremia 8. Tobacco abuse PLAN: 1. Avoid Aldactone in view of the above noted Hyperkalemia- correction of electrolyte abnormalities 2. Avoid ACEI or ARBS pending resolution of acute renal insufficiency- resume once renal function at baseline hemodynamics permitting 3. Resume Norvasc hemodynamics permitting 4. Continue Steroids and Bronchodilators as per the primary team 5. Ventilator management as per the ICU team Camden Henson M.D.
[2019-05-15 06:43] LABS: INR 1.13 (0.83-1.09); PROTHROMBIN TIME (PATIENT) 13.3 SEC (9.7-13.0)
[2019-05-15 06:46] LABS: BLOOD UREA NITROGEN 49.9 mg/dL (7-18); CALCIUM 8.8 mg/dL (8.5-10.1); CREATININE 1.5 mg/dL (0.55-1.3); MAGNESIUM 2.7 mg/dL (1.8-2.4); PHOSPHOROUS 5.8 mg/dL (2.5-4.9); POTASSIUM 5.8 mmol/L (3.5-5.1)
[2019-05-15 06:49] LABS: ALLENS TEST POSITIVE
[2019-05-15 06:55] LABS: ARTERIAL BLD GAS O2 SATURATION 92.9 % (95-98); ARTERIAL BLOOD GAS BASE EXCESS 8.9 meq/l (-2-2); ARTERIAL BLOOD GAS PO2 74.8 mmHg (80-105); ARTERIAL BLOOD GAS pH 7.33 (7.35-7.45)
[2019-05-15 07:06] LABS: ARTERIAL BLOOD GAS PCO2 73.2 mmHg (35-45)
[2019-05-15] MEDS: ALBUTEROL SO4 2.5/IPRATROPIUM 0.5 INH SOL 3 ML VIAL.NEB. NEB SCH ×4 (07:30→20:50)
[2019-05-15] MEDS ORDERED: PT OWN MED DRAWER 7, Y5N ONE ×3 (09:11→21:10)
[2019-05-15] MEDS ORDERED: PIPERACILLIN/TAZOBACTAM 4.5 GM VIAL IVPB ONE ×4 (09:12→21:11)
[2019-05-15] MEDS: PANTOPRAZOLE SODIUM 40 MG VIAL IVPUSH SCH ×2 (09:14→21:52)
[2019-05-15] MEDS: methylPREDNISolone NA SUCC 40 MG/1 ML VIAL IVPUSH SCH (09:20)
[2019-05-15] MEDS: ESCITALOPRAM OXALATE 10 MG TABLET (FP) NGT SCH (09:24)
[2019-05-15] MEDS: CLOTRIMAZOLE 1% CREAM 15 GM TUBE TP SCH ×2 (09:25→21:51)
--- NOTE | 2019-05-15 09:31 | PN ---
Progress Note (short form) - Note Progress Note: remains intubated and sedated PE limited by obesity Vital Signs Period Temp Pulse Resp BP Sys/Melgoza Pulse Ox Last 24 Hr 97.4 F-98.7 F 54-87 16-22 88-111/55-76 95-96 orally intubated cor-rrr lungs decreased bs at bases abd soft, ext trace edema +love CBC, BMP 05/15/19 05:40 05/15/19 05:40 Microbiology 05/13/19 13:05 Urine - Urine - Catheterized Urine Culture - Final Escherichia Coli Esbl Remote Broadcast Engineer 05/13/19 11:40 Blood - Peripheral Venous Blood Culture - Preliminary Pending Organism 05/13/19 11:25 Blood - Peripheral Venous Blood Culture - Preliminary NO GROWTH OBTAINED AFTER 24 HOURS, INCUBATION TO CONTINUE FOR 4 DAYS. Current Medications Albuterol/Ipratropium (Duoneb -) 1 amp NEB RQID [facility] Last Admin: 05/15/19 07:30 Dose: 1 amp Chlorhexidine Gluconate (Hibiclens For Decolonization -) 1 applic TP HS [facility] Last Admin: 05/14/19 23:06 Dose: 1 applic Clotrimazole (Lotrimin 1% Cream -) 1 applic TP BID [facility] Last Admin: 05/15/19 09:25 Dose: 1 applic Escitalopram Oxalate (Lexapro -) 10 mg NGT DAILY [facility] Last Admin: 05/15/19 09:24 Dose: 10 mg Heparin Sodium (Porcine) (Heparin -) 5,000 unit SQ TID [facility] Propofol (Diprivan -) 1,000,000 mcg in 100 mls @ 5.715 mls/hr IVPB TITR [facility]; Protocol Last Admin: 05/15/19 07:00 Dose: 30 mcg/kg/min, 34.292 mls/hr Piperacillin Sod/Tazobactam (Sod 4.5 gm/ Dextrose) 100 mls @ 200 mls/hr IVPB Q8H-IV [facility]; Protocol Last Admin: 05/15/19 09:24 Dose: 200 mls/hr Fentanyl 500 mcg/ Dextrose 100 mls @ 20 mls/hr IVPB TITR [facility] Last Admin: 05/15/19 08:55 Dose: 100 mcg/hr, 20 mls/hr Sodium Chloride (Normal Saline -) 1,000 mls @ 83 mls/hr IV ASDIR [facility] Stop: 08/19/19 12:18 Last Admin: 05/15/19 02:15 Dose: 83 mls/hr Vancomycin HCl 1,500 mg/ (Dextrose) 500 mls @ 250 mls/hr IVPB ONCE ONE; Protocol Stop: 05/15/19 11:59 Methylprednisolone Sodium Succinate (Solu-Medrol -) 60 mg IVPUSH BID [facility] Last Admin: 05/15/19 09:20 Dose: 60 mg Mupirocin (Bactroban Ointment (For Decolonization) -) 1 applic NS BID [facility] Stop: 05/18/19 21:59 Last Admin: 05/14/19 23:06 Dose: 1 applic Pantoprazole Sodium (Protonix Iv) 40 mg IVPUSH BID [facility] Last Admin: 05/15/19 09:14 Dose: 40 mg a/p acute on chronic hypercapneic resp failure cannot r/o pneumonia COPD OSAS morbid obesity hyperkalemia increased creatinine-f/u with renal positive blood culture- redose vancomycin- d/w ICU staff urinary antigens, sputum culture do not think he has UTI- contact isolation ecoli esbl will need to adjust zosyn dosing if renal function worsens d/w ICU staff d/w ICU nurse over 30 minutes spent in the care of this ICU patient Problem List - Problems (1) Acute on chronic respiratory failure with hypoxia and hypercapnia Code(s): J96.21 - ACUTE AND CHRONIC RESPIRATORY FAILURE WITH HYPOXIA; J96.22 - ACUTE AND CHRONIC RESPIRATORY FAILURE WITH HYPERCAPNIA (2) Pneumonia Code(s): J18.9 - PNEUMONIA, UNSPECIFIED ORGANISM (3) COPD (chronic obstructive pulmonary disease) Code(s): J44.9 - CHRONIC OBSTRUCTIVE PULMONARY DISEASE, UNSPECIFIED (4) RANJIT (obstructive sleep apnea) Code(s): G47.33 - OBSTRUCTIVE SLEEP APNEA (ADULT) (PEDIATRIC) (5) Morbid obesity Code(s): E66.01 - MORBID (SEVERE) OBESITY DUE TO EXCESS CALORIES (6) Hyperkalemia Code(s): E87.5 - HYPERKALEMIA
[2019-05-15] MEDS ORDERED: VANCOMYCIN HCL 1,500 MG in DEXTROSE 5%-WATER - 500 ML IVPB ONE (10:00)
--- NOTE | 2019-05-15 10:27 | PN ---
Progress Note (short form) - Note Progress Note: pt seen/ examined chart reviewed intubated / sedated all f/u noted discussed with RN also Vital Signs Temp 98.0 F 05/15/19 10:00 Pulse 50 L 05/15/19 10:00 Resp 18 05/15/19 10:00 BP 107/71 05/15/19 10:00 Pulse Ox 95 05/15/19 08:25 Intake & Output 05/14/19 05/14/19 05/15/19 11:59 23:59 11:59 Intake Total 990 1228 770 Output Total 300 300 400 Balance 690 928 370 Weight 410 lb 8 oz 410 lb 0.957 oz 399 lb 7.642 oz Intake: IV 790 728 670 DIPRIVAN - 1,000,000 mcg 300 In 100 ml @ 5 MCG/KG/MIN 5.715 mls/hr IVPB TITR [facility] Rx#:[id number] DIPRIVAN - 1,000,000 mcg 408 210 In 100 ml @ 5 MCG/KG/MIN 5.715 mls/hr IVPB TITR [facility] Rx#:[id number] Normal Saline - 250 ml @ 250 250 mls/hr IV [facility] Rx#:[id number] Sublimaze Injection - 500 80 320 Mcg In D5w - 90 ml @ 100 MCG/HR 20 mls/hr IVPB TITR [facility] Rx#:[id number] Sublimaze Injection - 500 240 240 140 Mcg In D5w - 90 ml @ Titrate IVPB TITR [facility] Rx# :[id number] IVPB 200 500 100 Output: Urine 300 300 400 Love 300 300 400 Other: Voiding Method Indwelling Catheter Indwelling Catheter Indwelling Catheter Height 5 ft 10 in Body Mass Index (BMI) 58.8 Weight Measurement Method Built in [facility] Active Medications Albuterol/Ipratropium (Duoneb -) 1 amp NEB RQID [facility] Last Admin: 05/15/19 07:30 Dose: 1 amp Chlorhexidine Gluconate (Hibiclens For Decolonization -) 1 applic TP HS [facility] Last Admin: 05/14/19 23:06 Dose: 1 applic Clotrimazole (Lotrimin 1% Cream -) 1 applic TP BID [facility] Last Admin: 05/15/19 09:25 Dose: 1 applic Escitalopram Oxalate (Lexapro -) 10 mg NGT DAILY [facility] Last Admin: 05/15/19 09:24 Dose: 10 mg Heparin Sodium (Porcine) (Heparin -) 5,000 unit SQ TID [facility] Propofol (Diprivan -) 1,000,000 mcg in 100 mls @ 5.715 mls/hr IVPB TITR [facility]; Protocol Last Admin: 05/15/19 07:00 Dose: 30 mcg/kg/min, 34.292 mls/hr Piperacillin Sod/Tazobactam (Sod 4.5 gm/ Dextrose) 100 mls @ 200 mls/hr IVPB Q8H-IV [facility]; Protocol Last Admin: 05/15/19 09:24 Dose: 200 mls/hr Fentanyl 500 mcg/ Dextrose 100 mls @ 20 mls/hr IVPB TITR [facility] Last Admin: 05/15/19 08:55 Dose: 100 mcg/hr, 20 mls/hr Sodium Chloride (Normal Saline -) 1,000 mls @ 83 mls/hr IV ASDIR [facility] Stop: 05/15/19 12:18 Last Admin: 05/15/19 02:15 Dose: 83 mls/hr Vancomycin HCl 1,500 mg/ (Dextrose) 500 mls @ 250 mls/hr IVPB ONCE ONE; Protocol Stop: 05/15/19 11:59 Methylprednisolone Sodium Succinate (Solu-Medrol -) 60 mg IVPUSH BID [facility] Last Admin: 05/15/19 09:20 Dose: 60 mg Mupirocin (Bactroban Ointment (For Decolonization) -) 1 applic NS BID [facility] Stop: 05/18/19 21:59 Last Admin: 05/14/19 23:06 Dose: 1 applic Pantoprazole Sodium (Protonix Iv) 40 mg IVPUSH BID [facility] Last Admin: 05/15/19 09:14 Dose: 40 mg CBC, BMP 05/15/19 05:40 05/15/19 05:40 ABG Results ABG pH 7.33 (7.35-7.45) L 05/15/19 06:42 ABG pCO2 at Pt Temp 73.2 mmHg (35-45) H* 05/15/19 06:42 ABG pO2 at Pt Temp 74.8 mmHg (80-105) L 05/15/19 06:42 ABG HCO3 37.2 mmol/L (22-27) H 05/15/19 06:42 ABG O2 Sat (Measured) 92.9 % (95-98) L 05/15/19 06:42 ABG O2 Content 16.4 % vol (15-22) 05/15/19 06:42 ABG Base Excess 8.9 meq/l (-2-2) H 05/15/19 06:42 Microbiology 05/13/19 11:40 Blood Culture - Preliminary Blood - Peripheral Venous Staphylococcus Coagulase Neg 05/13/19 13:05 Urine Culture - Final Urine - Urine - Catheterized Escherichia Coli Esbl Insulator Helper 05/13/19 11:25 Blood Culture - Preliminary Blood - Peripheral Venous NO GROWTH OBTAINED AFTER 24 HOURS, INCUBATION TO CONTINUE FOR 4 DAYS. Physical Exam Intubated/ sedated/ morbidly obese S1 S2 RRR Lungs -- Bilateral breath sounds morbid obesity Abd- soft , obese edema+ love _ PLAN Acute hypercapniec respiratory failure COPD exacerbation morbid obesity Sleep apnea diastolic CHF Pneumonia? -- on vent support -- wean as per ICU team -- ICU monitoring -- monitor potassium/ renal function renal also consulted -- on meds -- on iv antibiotics --condition gaurded - discussed with rn also cc time approx 35 min - will follow Problem List - Problems (1) COPD (chronic obstructive pulmonary disease) Code(s): J44.9 - CHRONIC OBSTRUCTIVE PULMONARY DISEASE, UNSPECIFIED (2) COPD exacerbation Code(s): J44.1 - CHRONIC OBSTRUCTIVE PULMONARY DISEASE W (ACUTE) EXACERBATION (3) GERD (gastroesophageal reflux disease) Code(s): K21.9 - GASTRO-ESOPHAGEAL REFLUX DISEASE WITHOUT ESOPHAGITIS (4) HTN (hypertension) Code(s): I10 - ESSENTIAL (PRIMARY) HYPERTENSION (5) Hyperkalemia Code(s): E87.5 - HYPERKALEMIA (6) RANJIT (obstructive sleep apnea) Code(s): G47.33 - OBSTRUCTIVE SLEEP APNEA (ADULT) (PEDIATRIC) (7) Pneumonia Code(s): J18.9 - PNEUMONIA, UNSPECIFIED ORGANISM
--- NOTE | 2019-05-15 11:49 | PN ---
Teaching Attending Note Name of Resident: Tera Grimm ATTENDING PHYSICIAN STATEMENT I saw and evaluated the patient. I reviewed the resident's note and discussed the case with the resident. I agree with the resident's findings and plan as documented. SUBJECTIVE: Pt seen and examined in the ICU. Remains intubated, sedated. Did not tolerate CPAP/PS trials off sedation. OBJECTIVE: Vital Signs Period Temp Pulse Resp BP Sys/Melgoza Pulse Ox Last 24 Hr 97.4 F-98.7 F 50-75 18-22 88-111/55-76 93-96 Intake & Output 05/12/19 05/13/19 05/14/19 05/15/19 23:59 23:59 23:59 23:59 Intake Total 2218 770 Output Total 600 400 Balance 1618 370 Weight 186 kg 186 kg 181.2 kg Gen: intubated, sedated Heart: RRR Lung: distant breath sounds Abd: soft, nontender, obese Ext: no edema CBC, BMP 05/15/19 05:40 05/15/19 05:40 Active Medications Albuterol/Ipratropium (Duoneb -) 1 amp NEB RQID [facility] Last Admin: 05/15/19 11:26 Dose: 1 amp Chlorhexidine Gluconate (Hibiclens For Decolonization -) 1 applic TP HS [facility] Last Admin: 05/14/19 23:06 Dose: 1 applic Clotrimazole (Lotrimin 1% Cream -) 1 applic TP BID [facility] Last Admin: 05/15/19 09:25 Dose: 1 applic Escitalopram Oxalate (Lexapro -) 10 mg NGT DAILY [facility] Last Admin: 05/15/19 09:24 Dose: 10 mg Heparin Sodium (Porcine) (Heparin -) 5,000 unit SQ TID [facility] Propofol (Diprivan -) 1,000,000 mcg in 100 mls @ 5.715 mls/hr IVPB TITR [facility]; Protocol Last Admin: 05/15/19 07:00 Dose: 30 mcg/kg/min, 34.292 mls/hr Piperacillin Sod/Tazobactam (Sod 4.5 gm/ Dextrose) 100 mls @ 200 mls/hr IVPB Q8H-IV [facility]; Protocol Last Admin: 05/15/19 09:24 Dose: 200 mls/hr Fentanyl 500 mcg/ Dextrose 100 mls @ 20 mls/hr IVPB TITR [facility] Last Admin: 05/15/19 08:55 Dose: 100 mcg/hr, 20 mls/hr Sodium Chloride (Normal Saline -) 1,000 mls @ 83 mls/hr IV ASDIR [facility] Stop: 05/15/19 12:18 Last Admin: 05/15/19 02:15 Dose: 83 mls/hr Vancomycin HCl 1,500 mg/ (Dextrose) 500 mls @ 250 mls/hr IVPB ONCE ONE; Protocol Stop: 05/15/19 11:59 Methylprednisolone Sodium Succinate (Solu-Medrol -) 40 mg IVPUSH DAILY [facility] Mupirocin (Bactroban Ointment (For Decolonization) -) 1 applic NS BID [facility] Stop: 05/18/19 21:59 Last Admin: 05/14/19 23:06 Dose: 1 applic Pantoprazole Sodium (Protonix Iv) 40 mg IVPUSH BID [facility] Last Admin: 05/15/19 09:14 Dose: 40 mg ASSESSMENT AND PLAN: Acute on Chronic Hypoxic and Hypercapneic Respiratory Failure r/o Acute COPD Exacerbation Severe Restrictive Lung Disease UTI Morbid Obesity Pulmonary HTN LV Diastolic Dysfunction RANJIT/OHS Acute on Chronic Renal Failure - continue antibiotics - taper medrol - inhaled bronchodilators - taper Fio2 to keep Spo2 >85% - keep PEEP 10 - monitor urine output, creatinine - monitor lytes - daily sedation vacations to asses mental status - spontaneous breathing trials as tolerated when mental status improved - DVT/GI prophylaxis - continue ICU monitoring critical care time spent in reviewing chart, evaluating patient and formulating plan 35 min
[2019-05-15] MEDS ORDERED: DEXTROSE 50%-WATER - 25 GM/50 ML VIAL IVPUSH ONE ×2 (14:05→14:45)
[2019-05-15] MEDS ORDERED: INSULIN REGULAR HUMAN 100 UNITS/ML *VIAL IVPUSH ONE (14:05)
--- NOTE | 2019-05-15 14:12 | PN ---
Physical Exam: SUBJECTIVE: Patient seen and examined at the bedside. Patient remains intubated and sedated. Today, sedation was removed and patient was attempted to be weaned on CPAP mode but was not able to tolerate it and started having respiratory distress and was put back on AC mode of ventilation. OBJECTIVE: Vital Signs Period Temp Pulse Resp BP Sys/Melgoza Pulse Ox Last 24 Hr 97.4 F-98.7 F 50-75 18-22 88-111/55-76 93-96 GENERAL: A&Ox0, intubated and sedated EYES: PERRLA, EOMI ENT: Moist mucus membranes NECK: Mild JVD noted LUNGS: Mechanical breath sounds HEART: RRR, no murmurs or rubs ABDOMEN: Morbidly obese, soft, nontender, BS present EXTREMITIES: 2+ pulses, large extremities, 1+ edema noted NEUROLOGICAL: Unable to assess due to mental status Laboratory Results - last 24 hr 05/14/19 05/14/19 05/14/19 05:56 16:00 16:00 WBC RBC Hgb Hct MCV MCH MCHC RDW Plt Count MPV PT with INR INR Anticoagulation Therapy Puncture Site ABG pH ABG pCO2 at Pt Temp ABG pO2 at Pt Temp ABG HCO3 ABG O2 Sat (Measured) ABG O2 Content ABG Base Excess Neto Test O2 Delivery Device Oxygen Flow Rate Vent Mode Vent Rate Mechanical Rate PEEP Pressure Support Vent Sodium 137 Potassium 5.6 H Chloride 94 L Carbon Dioxide 37 H Anion Gap 6 L BUN 47.8 H Creatinine 1.3 Est GFR (CKD-EPI)AfAm 71.19 Est GFR (CKD-EPI)NonAf 61.43 POC Glucometer Random Glucose 130 H Serum Osmolality 304 Calcium 9.1 Phosphorus Magnesium Triglycerides 168 H Cholesterol 227 H Total LDL Cholesterol 156 H HDL Cholesterol 47 TSH 1.30 D Urine Osmolality Ur Random Potassium Random Vancomycin 05/14/19 05/14/19 05/15/19 23:15 23:15 05:40 WBC RBC Hgb Hct MCV MCH MCHC RDW Plt Count MPV PT with INR 13.30 H INR 1.13 H Anticoagulation Therapy Puncture Site ABG pH ABG pCO2 at Pt Temp ABG pO2 at Pt Temp ABG HCO3 ABG O2 Sat (Measured) ABG O2 Content ABG Base Excess Neto Test O2 Delivery Device Oxygen Flow Rate Vent Mode Vent Rate Mechanical Rate PEEP Pressure Support Vent Sodium Potassium Chloride Carbon Dioxide Anion Gap BUN Creatinine Est GFR (CKD-EPI)AfAm Est GFR (CKD-EPI)NonAf POC Glucometer Random Glucose Serum Osmolality Calcium Phosphorus Magnesium Triglycerides Cholesterol Total LDL Cholesterol HDL Cholesterol TSH Urine Osmolality 478 Ur Random Potassium 44.0 Random Vancomycin 05/15/19 05/15/19 05/15/19 05:40 05:40 06:42 WBC 10.6 H RBC 4.33 Hgb 12.2 Hct 38.6 MCV 89.0 MCH 28.2 MCHC 31.6 L RDW 19.1 H Plt Count 286 MPV 6.9 L PT with INR INR Anticoagulation Therapy No Result Required. Puncture Site Right radial ABG pH 7.33 L ABG pCO2 at Pt Temp 73.2 H* ABG pO2 at Pt Temp 74.8 L ABG HCO3 37.2 H ABG O2 Sat (Measured) 92.9 L ABG O2 Content 16.4 ABG Base Excess 8.9 H Neto Test Positive O2 Delivery Device Vent Oxygen Flow Rate 60% Vent Mode A/c Vent Rate 18 Mechanical Rate Yes PEEP 10.0 Pressure Support Vent 450 Sodium 134 L Potassium 5.8 H Chloride 92 L Carbon Dioxide 38 H Anion Gap 4 L BUN 49.9 H Creatinine 1.5 H Est GFR (CKD-EPI)AfAm 59.88 Est GFR (CKD-EPI)NonAf 51.67 POC Glucometer Random Glucose 137 H Serum Osmolality Calcium 8.8 Phosphorus 5.8 H Magnesium 2.7 H Triglycerides Cholesterol Total LDL Cholesterol HDL Cholesterol TSH Urine Osmolality Ur Random Potassium Random Vancomycin 05/15/19 05/15/19 05/15/19 07:20 12:03 12:50 WBC RBC Hgb Hct MCV MCH MCHC RDW Plt Count MPV PT with INR INR Anticoagulation Therapy Puncture Site ABG pH ABG pCO2 at Pt Temp ABG pO2 at Pt Temp ABG HCO3 ABG O2 Sat (Measured) ABG O2 Content ABG Base Excess Neto Test O2 Delivery Device Oxygen Flow Rate Vent Mode Vent Rate Mechanical Rate PEEP Pressure Support Vent Sodium Cancelled Potassium Cancelled Chloride Cancelled Carbon Dioxide Cancelled Anion Gap Cancelled BUN Cancelled Creatinine Cancelled Est GFR (CKD-EPI)AfAm Cancelled Est GFR (CKD-EPI)NonAf Cancelled POC Glucometer 129 Random Glucose Cancelled Serum Osmolality Calcium Cancelled Phosphorus Magnesium Triglycerides Cholesterol Total LDL Cholesterol HDL Cholesterol TSH Urine Osmolality Ur Random Potassium Random Vancomycin 5.2 L Active Medications Generic Name Dose Route Start Last Admin Trade Name Italo PRN Reason Stop Dose Admin Albuterol/Ipratropium 1 amp 05/14/19 12:00 05/15/19 11:26 Duoneb - NEB 1 amp RQID MINDI Administration Chlorhexidine Gluconate 1 applic 05/13/19 22:00 05/14/19 23:06 Hibiclens For Decolonization - TP 1 applic HS MINDI Administration Clotrimazole 1 applic 05/13/19 22:00 05/15/19 09:25 Lotrimin 1% Cream - TP 1 applic BID MINDI Administration Dextrose 25 gm 05/15/19 14:05 D50w (Vial) - IVPUSH 05/15/19 14:06 NOW ONE Escitalopram Oxalate 10 mg 05/14/19 10:00 05/15/19 09:24 Lexapro - NGT 10 mg DAILY MINDI Administration Heparin Sodium (Porcine) 5,000 unit 05/15/19 14:00 Heparin - SQ TID MINDI Propofol 1,000,000 mcg in 100 mls @ 5.715 mls/hr 05/13/19 16:00 05/15/19 07: 00 Diprivan - IVPB 30 mcg/kg/min TITR MINDI 34.292 mls/hr Administration Protocol 5 MCG/KG/MIN Piperacillin Sod/Tazobactam 100 mls @ 200 mls/hr 05/14/19 16:00 05/15/19 09: 24 Sod 4.5 gm/ Dextrose IVPB 200 mls/hr Q8H-IV MINDI Administration Protocol Fentanyl 500 mcg/ Dextrose 100 mls @ 20 mls/hr 05/14/19 16:15 05/15/19 08:55 IVPB 100 mcg/hr TITR MINDI 20 mls/hr Administration 100 MCG/HR Insulin Human Regular 10 units 05/15/19 14:05 Novolin R Vial *For Ivpush Or Iv Drip Only* IVPUSH 05/15/19 14:06 ONCE ONE Methylprednisolone Sodium Succinate 40 mg 05/16/19 10:00 Solu-Medrol - IVPUSH DAILY MINDI Mupirocin 1 applic 05/13/19 22:00 05/14/19 23:06 Bactroban Ointment (For Decolonization) - NS 05/18/19 21:59 1 applic BID MINDI Administration Pantoprazole Sodium 40 mg 05/13/19 22:00 05/15/19 09:14 Protonix Iv IVPUSH 40 mg BID MINDI Administration Sodium Zirconium Cyclosilicate 10 gm 05/16/19 10:00 Lokelma PO DAILY MINDI ASSESSMENT/PLAN: Satya Rosario is a 54 year old with a past medical history of COPD, OHS, RANJIT, HTN, CHF (last echo in March showing normal EF), GERD, MDD who is admitted to the ICU for acute on chronic hypercapneic hypoxic respiratory failure secondary to long-standing COPD, OHS, RANJIT, and non-compliance with home oxygen therapy and nightly CPAP. Acute on chronic hypercapneic hypoxic respiratory failure COPD OHS RANJIT HTN GERD NEUROLOGIC - intubated and sedated - continue propofol and fentanyl and wean when ready to extubate - hold home gabapentin CARDIOLOGY - last echo 04/14 showing normal EF, normal left ventricle function and size - hold beta phuong in acute COPD exacerbation - troponins negative - hold spironolactone in setting of hyperkalemia - on terlipressin, non-formulary, holding BP meds in setting of lower pressures , can restart if BPs increase RESPIRATORY - intubated - vent settings optimized for reduction of hypercapneia and adequate oxygenation - PFTs performed in March showing patient with severe airway obstructive disease , severe restrictive disease, and severe diffusion deficit - ABGs showing continued acute on chronic hypercapneic hypoxic process - today ABG showing pH 7.33, CO2 73.2, O2 74.8, improving - given duonebs and solumedrol in ED - change Solumedrol 40mg IV daily, titrate as necessary - CXR showing widened mediastinum, essentially unchanged since previous admission - questionable PNA process RENAL - FAITH, today 1.5, baseline 0.8 - avoid overhydration due to hx of CHF - hyperkalemia 5.8 today, treated with insulin and D50, started on Lokelma - TTKG 4.82, lower than expected for hyperkalemia, spironolactone not given for several days, possibility of hypoaldosteronism - AM labs to assess for electrolyte status GASTROINTESTINAL - Protonix 40mg bid prophylaxis while intubated - hold home ranitidine while on protonix INFECTIOUS DISEASE - continue Zosyn 4.5gm q6h - random vancomycin level 5.2 - redose vanco at 1500mg daily - blood cxs gram positive cocci in clusters, possible contamination - urine cxs Ecoli - Legionella and strep urine antigens - sputum cxs - continue to monitor for signs of infection, WBC, fevers - Dr. Nielson consulted, recs appreciated HEMATOLOGY - no acute issues PSYCHIATRIC - continue home Lexapro 10mg to avoid discontinuation syndrome F/E/N - no standing fluids - continue to monitor electrolytes and replete as necessary, hyperkalemia noted and treated - Tube Feed Promote LINES - R wrist inserted 05/15 PROPHYLAXIS - on Lovenox 40mg subq bid - protonix 40mg IV bid while intubated CODE - full code DISPO - continue to monitor in ICU CASE DISCUSSED WITH DR JOHN CAZARES DO - PGY-1 INTERNAL MEDICINE Visit type - Emergency Visit Emergency Visit: No - New Patient This patient is new to me today: No - Critical Care Critical Care patient: Yes Total Critical Care Time (in minutes): 36 Critical Care Statement: The care of this patient involved high complexity decision making to prevent further life threatening deterioration of the patient 's condition and/or to evaluate & treat vital organ system(s) failure or risk of failure.
[2019-05-15] MEDS: HEPARIN NA (PORCINE) 5,000 UNITS/ML 1ML VIAL SQ SCH ×2 (14:39→21:51)
[2019-05-15] MEDS ORDERED: DEXTROSE 50%-WATER 25 GM/50 ML DISP.SYRIN ONE (14:51)
--- NOTE | 2019-05-15 15:30 | CONSULT ---
Consult Consult Specialty:: Nephrology Reason for Consultation:: FAITH - History of Present Illness Chief Complaint: altered mental status History of Present Illness: Pt is a 54 year old male with pmhx of obesity, copd, RANJIT, htn, chf, gerd who presented to the ER for lethargy. He was found to be febrile and was tachycardic. He was also found to be hyperkalemic. Pt is intubated and unable to give history. Chart was reviewed. Potassium is being treated medically and is improving. He was on antibiotics for UTI however not clear which one. He has a love and is making urine. Love was not working properly however after manipulation it is working. Care discussed with ICU team. - History Source History Provided By: Medical Record - Past Medical History Cardio/Vascular: Yes: CHF (diastolic), Pulmonary Hypertension Pulmonary: Yes: COPD, O2 Dependent - Alcohol/Substance Use Hx Alcohol Use: No - Smoking History Smoking history: Former smoker Have you smoked in the past 12 months: No Aproximately how many cigarettes per day: 10 If you are a former smoker, when did you quit?: 2018 - Social History Usual Living Arrangement: Alone Occupation: on disability, [facility] patient Home Medications - Allergies Allergies/Adverse Reactions: Allergies Allergy/AdvReac Type Severity Reaction Status Date / Time pistachio nut Allergy Verified 05/13/19 10:44 - Home Medications Home Medications: Ambulatory Orders Acetaminophen 500 mg PO Q6H PRN 04/04/19 Albuterol 2.5/Ipratropium 0.5 [Duoneb -] 1 amp NEB PRN PRN 04/04/19 Calcium Carbonate [Tums] 200 mg PO BID PRN 04/04/19 Enoxaparin [Lovenox -] 40 mg SQ DAILY 04/04/19 Ergocalciferol [Vitamin D2] 50,000 unit PO WEEKLY 04/04/19 Escitalopram Oxalate [Lexapro -] 10 mg PO DAILY 04/04/19 Gabapentin [Neurontin] 100 mg PO TID 04/04/19 Liraglutide [Victoza -] 0.6 mg SQ DAILY 04/04/19 Mag Hydrox/Al Hydrox/Simeth [Mylanta Oral Suspension -] 15 ml PO TID PRN Magnesium Hydroxide [Milk of Magnesia] 30 ml PO DAILY PRN 04/04/19 Metoprolol Succinate 25 mg PO DAILY 04/04/19 Ranitidine [Zantac -] 150 mg PO BID 04/04/19 Spironolactone [Aldactone] 25 mg PO DAILY 04/04/19 Telmisartan [Micardis] 80 mg PO DAILY 04/04/19 Mag Hydrox/Al Hydrox/Simeth [Mylanta Oral Suspension -] 30 ml PO Q6H PRN cup Vit C/Dietary Supplement No.18 500 mg PO DAILY 05/13/19 Zinc Oxide 20% Topical Oint 1 applic TD DAILY 05/13/19 Family Disease History - Family Disease History Family History: Unable to Obtain Review of Systems Unable to obtain ROS, reason: pt intubated Physical Exam Vital Signs: Vital Signs Temperature 98.3 F 05/15/19 14:00 Pulse Rate 52 L 05/15/19 14:00 Respiratory Rate 18 05/15/19 14:40 Blood Pressure 115/86 05/15/19 14:00 O2 Sat by Pulse Oximetry (%) 93 L 05/15/19 14:00 Constitutional: Yes: Calm Eyes: Yes: Conjunctiva Clear HENT: Yes: Atraumatic Cardiovascular: Yes: S1, S2 Respiratory: Yes: Intubated, Mechanically Ventilated Gastrointestinal: Yes: Soft, Abdomen, Obese Renal/: Yes: Love Present Musculoskeletal: Yes: Muscle Weakness Edema: Yes Edema: LUE: 1+, RUE: 1+, LLE: 1+, RLE: 1+ Neurological: Yes: Lethargy Labs: CBC, BMP 05/15/19 05:40 05/15/19 12:50 Laboratory Tests 04/05/19 04/06/19 04/08/19 05:58 05:15 05:30 ABG pH ABG pCO2 at Pt Temp ABG HCO3 Sodium Potassium Chloride Creatinine 0.8 1.0 0.8 Urine Protein Urine Blood 05/13/19 05/13/19 05/13/19 11:25 13:05 20:35 ABG pH ABG pCO2 at Pt Temp ABG HCO3 Sodium Potassium Chloride Creatinine 1.1 1.2 Urine Protein Trace Urine Blood Negative 05/14/19 05/14/19 05/15/19 00:00 16:00 05:40 ABG pH ABG pCO2 at Pt Temp ABG HCO3 Sodium 134 L Potassium 5.6 H 5.8 H Chloride Creatinine 1.4 H 1.5 H Urine Protein Urine Blood 05/15/19 05/15/19 06:42 15:20 ABG pH 7.33 L ABG pCO2 at Pt Temp 73.2 H* ABG HCO3 37.2 H Sodium 135 L Potassium 5.4 H Chloride 93 L Creatinine 1.4 H Urine Protein Urine Blood Imaging - Results Chest X-ray: Report Reviewed Problem List - Problems (1) FAITH (acute kidney injury) Code(s): N17.9 - ACUTE KIDNEY FAILURE, UNSPECIFIED (2) COPD (chronic obstructive pulmonary disease) Code(s): J44.9 - CHRONIC OBSTRUCTIVE PULMONARY DISEASE, UNSPECIFIED (3) HTN (hypertension) Code(s): I10 - ESSENTIAL (PRIMARY) HYPERTENSION (4) Hyperkalemia Code(s): E87.5 - HYPERKALEMIA (5) Acute respiratory failure with hypoxia and hypercarbia Code(s): J96.01 - ACUTE RESPIRATORY FAILURE WITH HYPOXIA; J96.02 - ACUTE RESPIRATORY FAILURE WITH HYPERCAPNIA (6) COPD exacerbation Code(s): J44.1 - CHRONIC OBSTRUCTIVE PULMONARY DISEASE W (ACUTE) EXACERBATION (7) Obesity hypoventilation syndrome Code(s): E66.2 - MORBID (SEVERE) OBESITY WITH ALVEOLAR HYPOVENTILATION (8) Morbid obesity Code(s): E66.01 - MORBID (SEVERE) OBESITY DUE TO EXCESS CALORIES Assessment/Plan Current Medications Generic Name Dose Route Start Last Admin Trade Name Freq PRN Reason Stop Dose Admin Albuterol/Ipratropium 1 amp 05/14/19 12:00 05/15/19 15:29 Duoneb - NEB 1 amp RQID MINDI Administration Chlorhexidine Gluconate 1 applic 05/13/19 22:00 05/14/19 23:06 Hibiclens For Decolonization - TP 1 applic HS MINDI Administration Clotrimazole 1 applic 05/13/19 22:00 05/15/19 09:25 Lotrimin 1% Cream - TP 1 applic BID MINDI Administration Escitalopram Oxalate 10 mg 05/14/19 10:00 05/15/19 09:24 Lexapro - NGT 10 mg DAILY MINDI Administration Heparin Sodium (Porcine) 5,000 unit 05/15/19 14:00 05/15/19 14:39 Heparin - SQ 5,000 unit TID MINDI Administration Propofol 1,000,000 mcg in 100 mls @ 5.715 mls/hr 05/13/19 16:00 05/15/19 07: 00 Diprivan - IVPB 30 mcg/kg/min TITR MINDI 34.292 mls/hr Administration Protocol 5 MCG/KG/MIN Piperacillin Sod/Tazobactam 100 mls @ 200 mls/hr 05/14/19 16:00 05/15/19 09: 24 Sod 4.5 gm/ Dextrose IVPB 200 mls/hr Q8H-IV MINDI Administration Protocol Fentanyl 500 mcg/ Dextrose 100 mls @ 20 mls/hr 05/14/19 16:15 05/15/19 08:55 IVPB 100 mcg/hr TITR MINDI 20 mls/hr Administration 100 MCG/HR Methylprednisolone Sodium Succinate 40 mg 05/16/19 10:00 Solu-Medrol - IVPUSH DAILY MINDI Mupirocin 1 applic 05/13/19 22:00 05/14/19 23:06 Bactroban Ointment (For Decolonization) - NS 05/18/19 21:59 1 applic BID MINDI Administration Pantoprazole Sodium 40 mg 05/13/19 22:00 05/15/19 09:14 Protonix Iv IVPUSH 40 mg BID MINDI Administration Sodium Zirconium Cyclosilicate 10 gm 05/16/19 10:00 Lokelma PO DAILY MINDI Impression 1. FAITH 2. hyperkalemia 3. obesity 4. respiratory failure 5. uti 6. pulm htn 7. 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
[2019-05-15 16:13] LABS: BLOOD UREA NITROGEN 47.6 mg/dL (7-18); CALCIUM 8.6 mg/dL (8.5-10.1); CREATININE 1.4 mg/dL (0.55-1.3); POTASSIUM 5.4 mmol/L (3.5-5.1)
[2019-05-15] MEDS: MUPIROCIN 2% TOPICAL OINTMENT FOR DECOLONIZATION NS SCH ×2 (16:51→21:51)
[2019-05-15 18:23] LABS: EPI CELLS 4.3 /HPF (0-5/HPF); HYALINE CASTS 13 /lpf (0-8); PH,URINE 5.5 (5.0-8.0); URINE APPEARANCE TURBID; URINE BACTERIA 4.4 /hpf (NEGATIVE); URINE BILIRUBIN NEGATIVE (NEGATIVE); URINE COLOR YELLOW; URINE GLUCOSE (UA) NEGATIVE (NEGATIVE); URINE KETONE NEGATIVE (NEGATIVE); URINE LEUK ESTERASE 2+ (NEGATIVE); URINE NITRITE NEGATIVE (NEGATIVE); URINE PROTEIN NEGATIVE (NEGATIVE); URINE RBC 5 /hpf (0-4); URINE UROBILINOGEN 0.2 mg/dL (0.2-1.0); URINE WBC 20 /hpf (0-5)
[2019-05-15 19:13] LABS: URINE CRYSTALS URIC ACID /hpf
[2019-05-15] MEDS: SODIUM CHLORIDE 1,000 ML IV SCH (20:52)
[2019-05-15] MEDS: CHLORHEXIDINE GLUCONATE 4% CLEANSER FOR DECOLONIZATION TP SCH (21:51)
[2019-05-16] MEDS: PIPERACILLIN/TAZOB 4.5 GM 4.5 GM in DEXTROSE 5%-WATER 100 ML IVPB SCH ×3 (01:05→10:10)
[2019-05-16] MEDS: PROPOFOL 1,000,000 MCG/100 ML VIAL IVPB SCH ×3 (01:09→17:49)
[2019-05-16] MEDS ORDERED: fentaNYL CITRATE 250 MCG/5 ML VIAL ONE ×2 (01:11→05:34)
[2019-05-16] MEDS: FENTANYL INJECTION 500 MCG in DEXTROSE 5%-WATER - 90 ML IVPB SCH ×2 (01:30→17:50)
[2019-05-16] MEDS: HEPARIN NA (PORCINE) 5,000 UNITS/ML 1ML VIAL SQ SCH ×3 (05:36→21:14)
[2019-05-16 06:42] LABS: ARTERIAL BLD GAS O2 SATURATION 48.3 % (95-98); ARTERIAL BLOOD GAS BASE EXCESS 7.8 meq/l (-2-2); ARTERIAL BLOOD GAS pH 7.34 (7.35-7.45)
[2019-05-16 06:54] LABS: ALLENS TEST POSITIVE
--- NOTE | 2019-05-16 07:08 | PN ---
Progress Note (short form) - Note Progress Note: Chief Complaint: Events noted, notes reviewed, remains intubated and sedated although awake and alert, sinus rhythm noted, in no distress History of Present Illness: Seen and examined in the ICU. Events noted, notes reviewed, remains intubated and sedated although awake and alert, sinus rhythm noted, in no distress - Current Medication List Current Medications Albuterol/Ipratropium (Duoneb -) 1 amp NEB RQID [facility] Last Admin: 05/15/19 20:50 Dose: 1 amp Chlorhexidine Gluconate (Hibiclens For Decolonization -) 1 applic TP HS [facility] Last Admin: 05/15/19 21:51 Dose: 1 applic Clotrimazole (Lotrimin 1% Cream -) 1 applic TP BID [facility] Last Admin: 05/15/19 21:51 Dose: 1 applic Escitalopram Oxalate (Lexapro -) 10 mg NGT DAILY [facility] Last Admin: 05/15/19 09:24 Dose: 10 mg Heparin Sodium (Porcine) (Heparin -) 5,000 unit SQ TID [facility] Last Admin: 05/16/19 05:36 Dose: 5,000 unit Propofol (Diprivan -) 1,000,000 mcg in 100 mls @ 5.715 mls/hr IVPB TITR [facility]; Protocol Last Admin: 05/16/19 05:00 Dose: 27 mcg/kg/min, 30.862 mls/hr Piperacillin Sod/Tazobactam (Sod 4.5 gm/ Dextrose) 100 mls @ 200 mls/hr IVPB Q8H-IV MINDI; Protocol Last Admin: 05/16/19 01:08 Dose: 200 mls/hr Fentanyl 500 mcg/ Dextrose 100 mls @ 20 mls/hr IVPB TITR [facility] Last Admin: 05/16/19 01:30 Dose: 100 mcg/hr, 20 mls/hr Sodium Chloride (Normal Saline -) 1,000 mls @ 83 mls/hr IV ASDIR [facility] Last Admin: 05/15/19 20:52 Dose: 83 mls/hr Methylprednisolone Sodium Succinate (Solu-Medrol -) 40 mg IVPUSH DAILY [facility] Mupirocin (Bactroban Ointment (For Decolonization) -) 1 applic NS BID [facility] Stop: 05/18/19 21:59 Last Admin: 05/15/19 21:51 Dose: 1 applic Pantoprazole Sodium (Protonix Iv) 40 mg IVPUSH BID MINDI Last Admin: 05/15/19 21:52 Dose: 40 mg Sodium Zirconium Cyclosilicate (Lokelma) 10 gm PO DAILY [facility] Review of Systems Unable to obtain - Objective Vital Signs: Last Vital Signs Temp Pulse Resp BP Pulse Ox 98 F 70 29 H 111/78 96 05/16/19 06:00 05/16/19 06:00 05/16/19 06:47 05/16/19 06:00 05/15/19 22:00 Intake & Output 05/13/19 05/14/19 05/15/19 05/16/19 23:59 23:59 23:59 23:59 Intake Total 2218 770 2150 Output Total 600 1700 400 Balance 1618 -930 1750 Weight 410 lb 0.957 oz 410 lb 0.957 oz 399 lb 7.642 oz 402 lb 6 oz Neck: Supple Negative JVD No Bruit Cardiovascular: S1 S2 Regular Rate and Rhythm Respiratory: Diminished Breath Sounds at the Bases Bilateral Scattered Rhonchi Gastrointestinal: Soft Benign Normal Bowel Sounds Ext: Edema Labs: CBC, BMP 05/15/19 05:40 05/15/19 15:20 No blood test from this AM ABG Results ABG pH 7.34 (7.35-7.45) L 05/16/19 06:00 ABG pCO2 at Pt Temp 68.0 mmHg (35-45) H 05/16/19 06:00 ABG pO2 at Pt Temp 74.8 mmHg (80-105) L 05/15/19 06:42 ABG HCO3 35.3 mmol/L (22-27) H 05/16/19 06:00 ABG O2 Sat (Measured) 48.3 % (95-98) L 05/16/19 06:00 ABG O2 Content 16.4 % vol (15-22) 05/15/19 06:42 ABG Base Excess 7.8 meq/l (-2-2) H 05/16/19 06:00 Assessment/Plan ASSESSMENT: 1. Acute hypoxemic/hypercapneic respiratory failure, related to 2. Acute exacerbation of chronic obstructive pulmonary disease, possible pneumonia 3. Morbid obesity/hypoventilation syndrome with 4. Severe pulmonary hypertension with cor pulmonale, clinical class II-III NYHA classification RV failure 5. Diastolic LV dysfunction with chronic class 0-I NYHA classification LV congestive heart failure, clinically compensated 6. Chronic kidney disease with Hyperkalemia, acute exacerbation- no repeat blood test 7. Hyponatremia- no repeat blood test 8. Tobacco abuse PLAN: 1. As outlined in yesterday's note avoid Aldactone in view of the above noted Hyperkalemia- correction of electrolyte abnormalities- pending repeat blood test 2. Avoid ACEI or ARBS pending resolution of acute renal insufficiency- resume once renal function at baseline hemodynamics permitting 3. Resume Norvasc hemodynamics permitting 4. Continue Steroids and Bronchodilators as per the primary team 5. Ventilator management as per the ICU team 6. Obtain blood test this AM Camden Henson M.D.
[2019-05-16] MEDS: ALBUTEROL SO4 2.5/IPRATROPIUM 0.5 INH SOL 3 ML VIAL.NEB. NEB SCH ×4 (07:30→20:30)
[2019-05-16 07:32] LABS: ARTERIAL BLOOD GAS PO2 < 49 mmHg (80-105)
[2019-05-16] MEDS ORDERED: DEXTROSE 5%-WATER 100 ML IVPB ONE (09:08)
[2019-05-16] MEDS ORDERED: PIPERACILLIN/TAZOBACTAM 4.5 GM VIAL IVPB ONE (09:08)
[2019-05-16 09:22] LABS: HEMOGLOBIN 11.3 GM/dL (11.7-16.9); MCH 27.8 pg (25.7-33.7); MCHC 31.6 g/dl (32.0-35.9); MEAN CELL VOLUME 88.1 fl (80-96); MEAN PLT VOLUME 6.7 fl (7.5-11.1); PLATELET COUNT 259 K/MM3 (134-434); RBC 4.08 M/mm3 (4.00-5.60); RDW 18.7 % (11.9-15.9); WHITE BLOOD COUNT 8.2 K/mm3 (4.0-10.0)
[2019-05-16 09:39] LABS: INR 1.03 (0.83-1.09); PROTHROMBIN TIME (PATIENT) 12.1 SEC (9.7-13.0)
[2019-05-16 09:55] LABS: BLOOD UREA NITROGEN 53.2 mg/dL (7-18); CALCIUM 8.1 mg/dL (8.5-10.1); CREATININE 1.5 mg/dL (0.55-1.3); MAGNESIUM 2.6 mg/dL (1.8-2.4); PHOSPHOROUS 5.2 mg/dL (2.5-4.9); POTASSIUM 4.5 mmol/L (3.5-5.1)
[2019-05-16] MEDS ORDERED: SODIUM ZIRCONIUM CYCLOSILICATE (LOKELMA) 5 GM PACKET PO SCH ×2 (10:00→11:52)
[2019-05-16] MEDS: PANTOPRAZOLE SODIUM 40 MG VIAL IVPUSH SCH (10:10)
[2019-05-16] MEDS: MUPIROCIN 2% TOPICAL OINTMENT FOR DECOLONIZATION NS SCH ×2 (10:10→21:14)
[2019-05-16] MEDS: CLOTRIMAZOLE 1% CREAM 15 GM TUBE TP SCH ×2 (10:10→21:14)
[2019-05-16] MEDS: ESCITALOPRAM OXALATE 10 MG TABLET (FP) NGT SCH (10:11)
[2019-05-16] MEDS: methylPREDNISolone NA SUCC 40 MG/1 ML VIAL IVPUSH SCH (10:11)
--- NOTE | 2019-05-16 10:21 | PN ---
Progress Note (short form) - Note Progress Note: Events noted extubated a few minutes ago--- awake and alert not confused no distress on ventimask Vital Signs - 24 hr 05/15/19 05/15/19 05/15/19 14:00 14:40 16:00 Temperature 98.3 F Pulse Rate 52 L 56 L Respiratory 18 18 18 Rate Blood Pressure 115/86 113/74 O2 Sat by Pulse 93 L Oximetry (%) 05/15/19 05/15/19 05/15/19 17:19 17:39 18:00 Temperature 97.9 F Pulse Rate 50 L Respiratory 18 18 Rate Blood Pressure 92/60 O2 Sat by Pulse 95 Oximetry (%) 05/15/19 05/15/19 05/15/19 19:05 20:00 22:00 Temperature 98 F Pulse Rate 49 L 54 L Respiratory 18 16 18 Rate Blood Pressure 87/56 L 115/74 O2 Sat by Pulse 96 Oximetry (%) 05/16/19 05/16/19 05/16/19 00:00 01:00 01:05 Temperature Pulse Rate 45 L 50 L Respiratory 20 18 18 Rate Blood Pressure 91/65 91/60 O2 Sat by Pulse Oximetry (%) 05/16/19 05/16/19 05/16/19 02:00 03:00 04:00 Temperature 97.8 F Pulse Rate 48 L 48 L 47 L Respiratory 18 18 18 Rate Blood Pressure 85/56 L 86/58 L 87/59 L O2 Sat by Pulse Oximetry (%) 05/16/19 05/16/19 05/16/19 04:11 05:00 06:00 Temperature 98 F Pulse Rate 52 L 70 Respiratory 18 18 18 Rate Blood Pressure 89/56 L 111/78 O2 Sat by Pulse Oximetry (%) 05/16/19 05/16/19 05/16/19 06:47 08:00 08:30 Temperature 98.4 F Pulse Rate 66 62 Respiratory 29 H 18 18 Rate Blood Pressure 109/66 O2 Sat by Pulse 94 L Oximetry (%) 05/16/19 10:05 Temperature Pulse Rate 77 Respiratory Rate Blood Pressure O2 Sat by Pulse 95 Oximetry (%) Current Medications Generic Name Dose Route Start Last Admin Trade Name Freq PRN Reason Stop Dose Admin Albuterol/Ipratropium 1 amp 05/14/19 12:00 05/16/19 12:18 Duoneb - NEB 1 amp RQID MINDI Administration Chlorhexidine Gluconate 1 applic 05/13/19 22:00 05/15/19 21:51 Hibiclens For Decolonization - TP 1 applic HS MINDI Administration Clotrimazole 1 applic 05/13/19 22:00 05/16/19 10:10 Lotrimin 1% Cream - TP 1 applic BID MINDI Administration Escitalopram Oxalate 10 mg 05/14/19 10:00 05/16/19 10:11 Lexapro - NGT 10 mg DAILY MINDI Administration Heparin Sodium (Porcine) 5,000 unit 05/15/19 14:00 05/16/19 05:36 Heparin - SQ 5,000 unit TID MINDI Administration Propofol 1,000,000 mcg in 100 mls @ 5.715 mls/hr 05/13/19 16:00 05/16/19 05: 00 Diprivan - IVPB 27 mcg/kg/min TITR MINDI 30.862 mls/hr Administration Protocol 5 MCG/KG/MIN Piperacillin Sod/Tazobactam 100 mls @ 200 mls/hr 05/14/19 16:00 05/16/19 10: 10 Sod 4.5 gm/ Dextrose IVPB 200 mls/hr Q8H-IV MINDI Administration Protocol Fentanyl 500 mcg/ Dextrose 100 mls @ 20 mls/hr 05/14/19 16:15 05/16/19 01:30 IVPB 100 mcg/hr TITR MINDI 20 mls/hr Administration 100 MCG/HR Methylprednisolone Sodium Succinate 40 mg 05/16/19 10:00 05/16/19 10:11 Solu-Medrol - IVPUSH 40 mg DAILY MINDI Administration Mupirocin 1 applic 05/13/19 22:00 05/16/19 10:10 Bactroban Ointment (For Decolonization) - NS 05/18/19 21:59 1 applic BID MINDI Administration Sodium Zirconium Cyclosilicate 10 gm 05/16/19 11:52 Lokelma PO DAILY [facility] Laboratory Results - last 24 hr 05/15/19 05/15/19 05/15/19 12:50 15:20 18:00 WBC RBC Hgb Hct MCV MCH MCHC RDW Plt Count MPV PT with INR INR Puncture Site ABG pH ABG pCO2 at Pt Temp ABG pO2 at Pt Temp ABG HCO3 ABG O2 Sat (Measured) ABG O2 Content ABG Base Excess Neto Test O2 Delivery Device Oxygen Flow Rate Vent Rate PEEP Pressure Support Vent Sodium Cancelled 135 L Potassium Cancelled 5.4 H Chloride Cancelled 93 L Carbon Dioxide Cancelled 35 H Anion Gap Cancelled 7 L BUN Cancelled 47.6 H Creatinine Cancelled 1.4 H Est GFR (CKD-EPI)AfAm Cancelled 65.09 Est GFR (CKD-EPI)NonAf Cancelled 56.16 Random Glucose Cancelled 196 H Serum Osmolality Calcium Cancelled 8.6 Phosphorus Magnesium Urine Color Urine Appearance Urine pH Ur Specific [place] Urine Protein Urine Glucose (UA) Urine Ketones Urine Blood Urine Nitrite Urine Bilirubin Urine Urobilinogen Ur Leukocyte Esterase Urine WBC (Auto) Urine RBC (Auto) Urine Casts (Auto) U Pathogenic Cast Auto U Epithel Cells (Auto) U Sm Round Cell (Auto) Urine Crystals (Auto) Urine Bacteria (Auto) Urine Osmolality Ur Random Creatinine 69.6 Ur Random Sodium Ur Random Potassium Ur Random Chloride Random Vancomycin 05/15/19 05/15/19 05/15/19 18:00 18:00 18:00 WBC RBC Hgb Hct MCV MCH MCHC RDW Plt Count MPV PT with INR INR Puncture Site ABG pH ABG pCO2 at Pt Temp ABG pO2 at Pt Temp ABG HCO3 ABG O2 Sat (Measured) ABG O2 Content ABG Base Excess Neto Test O2 Delivery Device Oxygen Flow Rate Vent Rate PEEP Pressure Support Vent Sodium Potassium Chloride Carbon Dioxide Anion Gap BUN Creatinine Est GFR (CKD-EPI)AfAm Est GFR (CKD-EPI)NonAf Random Glucose Serum Osmolality Calcium Phosphorus Magnesium Urine Color Yellow Urine Appearance Turbid Urine pH 5.5 Ur Specific [place] 1.016 Urine Protein Negative Urine Glucose (UA) Negative Urine Ketones Negative Urine Blood Negative Urine Nitrite Negative Urine Bilirubin Negative Urine Urobilinogen 0.2 Ur Leukocyte Esterase 2+ H Urine WBC (Auto) 20 Urine RBC (Auto) 5 Urine Casts (Auto) 13 U Pathogenic Cast Auto None seen U Epithel Cells (Auto) 4.3 U Sm Round Cell (Auto) None seen Urine Crystals (Auto) Uric acid Urine Bacteria (Auto) 4.4 Urine Osmolality 443 Ur Random Creatinine Ur Random Sodium 19 L Ur Random Potassium 42.0 Ur Random Chloride < 11 L Random Vancomycin 05/16/19 05/16/19 05/16/19 06:00 09:06 09:06 WBC RBC Hgb Hct MCV MCH MCHC RDW Plt Count MPV PT with INR 12.10 INR 1.03 Puncture Site Right brachial ABG pH 7.34 L ABG pCO2 at Pt Temp 68.0 H ABG pO2 at Pt Temp < 49 L ABG HCO3 35.3 H ABG O2 Sat (Measured) 48.3 L ABG O2 Content No Result Required. ABG Base Excess 7.8 H Neto Test Positive O2 Delivery Device Vent Oxygen Flow Rate 50% Vent Rate 18 PEEP 10.0 Pressure Support Vent 450 Sodium Potassium Chloride Carbon Dioxide Anion Gap BUN Creatinine Est GFR (CKD-EPI)AfAm Est GFR (CKD-EPI)NonAf Random Glucose Serum Osmolality Calcium Phosphorus Magnesium Urine Color Urine Appearance Urine pH Ur Specific [place] Urine Protein Urine Glucose (UA) Urine Ketones Urine Blood Urine Nitrite Urine Bilirubin Urine Urobilinogen Ur Leukocyte Esterase Urine WBC (Auto) Urine RBC (Auto) Urine Casts (Auto) U Pathogenic Cast Auto U Epithel Cells (Auto) U Sm Round Cell (Auto) Urine Crystals (Auto) Urine Bacteria (Auto) Urine Osmolality Ur Random Creatinine Ur Random Sodium Ur Random Potassium Ur Random Chloride Random Vancomycin 16.8 L 05/16/19 05/16/19 05/16/19 09:06 09:06 09:06 WBC 8.2 RBC 4.08 Hgb 11.3 L Hct 36.0 MCV 88.1 MCH 27.8 MCHC 31.6 L RDW 18.7 H Plt Count 259 MPV 6.7 L PT with INR INR Puncture Site ABG pH ABG pCO2 at Pt Temp ABG pO2 at Pt Temp ABG HCO3 ABG O2 Sat (Measured) ABG O2 Content ABG Base Excess Neto Test O2 Delivery Device Oxygen Flow Rate Vent Rate PEEP Pressure Support Vent Sodium 135 L Potassium 4.5 Chloride 92 L Carbon Dioxide 37 H Anion Gap 6 L BUN 53.2 H Creatinine 1.5 H Est GFR (CKD-EPI)AfAm 59.88 Est GFR (CKD-EPI)NonAf 51.67 Random Glucose 89 Serum Osmolality 297 Calcium 8.1 L Phosphorus 5.2 H Magnesium 2.6 H Urine Color Urine Appearance Urine pH Ur Specific [place] Urine Protein Urine Glucose (UA) Urine Ketones Urine Blood Urine Nitrite Urine Bilirubin Urine Urobilinogen Ur Leukocyte Esterase Urine WBC (Auto) Urine RBC (Auto) Urine Casts (Auto) U Pathogenic Cast Auto U Epithel Cells (Auto) U Sm Round Cell (Auto) Urine Crystals (Auto) Urine Bacteria (Auto) Urine Osmolality Ur Random Creatinine Ur Random Sodium Ur Random Potassium Ur Random Chloride Random Vancomycin S1 S2 RRR Lungs decreased breath sounds morbid obesity Abd- soft , ND edema+ PLAN Acute hypercapniec respiratory failure COPD exacerbation morbid obesity Sleep apnea diastolic CHF Pneumonia? -- extubated -- ICU monitoring -- monitor potassium -- renal eval noted -- off Aldactone -- on meds -- on iv antibiotics Problem List - Problems (1) COPD (chronic obstructive pulmonary disease) Code(s): J44.9 - CHRONIC OBSTRUCTIVE PULMONARY DISEASE, UNSPECIFIED (2) COPD exacerbation Code(s): J44.1 - CHRONIC OBSTRUCTIVE PULMONARY DISEASE W (ACUTE) EXACERBATION (3) GERD (gastroesophageal reflux disease) Code(s): K21.9 - GASTRO-ESOPHAGEAL REFLUX DISEASE WITHOUT ESOPHAGITIS (4) HTN (hypertension) Code(s): I10 - ESSENTIAL (PRIMARY) HYPERTENSION (5) Hyperkalemia Code(s): E87.5 - HYPERKALEMIA (6) RANJIT (obstructive sleep apnea) Code(s): G47.33 - OBSTRUCTIVE SLEEP APNEA (ADULT) (PEDIATRIC) (7) Pneumonia Code(s): J18.9 - PNEUMONIA, UNSPECIFIED ORGANISM
[2019-05-16] MEDS: SODIUM CHLORIDE 1,000 ML IV SCH (12:32)
--- NOTE | 2019-05-16 13:23 | PN ---
Physical Exam: SUBJECTIVE: Patient seen and examined at the bedside. This morning, he was awake and alert. He was placed on CPAP mode and was able to tolerate it well and was extubated during rounds to Venti-mask. He will require Bilevel at night due to his RANJIT. Stated that he continued to have some sob with a productive cough. Denied cp, abd pain, n/v, fever, chills, weakness, numbness, tingling. OBJECTIVE: Vital Signs Period Temp Pulse Resp BP Sys/Melgoza Pulse Ox Last 24 Hr 97.8 F-98.4 F 45-82 16-29 85-117/56-86 93-96 GENERAL: alert and oriented, off sedation EYES: PERRLA, EOMI, sclera anicteric ENT: Moist mucus membranes NECK: No JVD noted LUNGS: Decreased breath sounds heard bilaterally due to large body habitus, no wheezes, no accessory muscle use HEART: RRR, no murmurs or rubs ABDOMEN: Morbidly obese, soft, nontender, BS present EXTREMITIES: 2+ pulses, large extremities, trace edema noted NEUROLOGICAL: CN II-XII intact, muscle strength intact bilaterally upper and lower extremities, no sensory deficits. Laboratory Results - last 24 hr 05/15/19 05/15/19 05/15/19 12:50 15:20 18:00 WBC RBC Hgb Hct MCV MCH MCHC RDW Plt Count MPV PT with INR INR Puncture Site ABG pH ABG pCO2 at Pt Temp ABG pO2 at Pt Temp ABG HCO3 ABG O2 Sat (Measured) ABG O2 Content ABG Base Excess Neto Test O2 Delivery Device Oxygen Flow Rate Vent Rate PEEP Pressure Support Vent Sodium Cancelled 135 L Potassium Cancelled 5.4 H Chloride Cancelled 93 L Carbon Dioxide Cancelled 35 H Anion Gap Cancelled 7 L BUN Cancelled 47.6 H Creatinine Cancelled 1.4 H Est GFR (CKD-EPI)AfAm Cancelled 65.09 Est GFR (CKD-EPI)NonAf Cancelled 56.16 Random Glucose Cancelled 196 H Serum Osmolality Calcium Cancelled 8.6 Phosphorus Magnesium Urine Color Urine Appearance Urine pH Ur Specific [place] Urine Protein Urine Glucose (UA) Urine Ketones Urine Blood Urine Nitrite Urine Bilirubin Urine Urobilinogen Ur Leukocyte Esterase Urine WBC (Auto) Urine RBC (Auto) Urine Casts (Auto) U Pathogenic Cast Auto U Epithel Cells (Auto) U Sm Round Cell (Auto) Urine Crystals (Auto) Urine Bacteria (Auto) Urine Osmolality Ur Random Creatinine 69.6 Ur Random Sodium Ur Random Potassium Ur Random Chloride Random Vancomycin 05/15/19 05/15/19 05/15/19 18:00 18:00 18:00 WBC RBC Hgb Hct MCV MCH MCHC RDW Plt Count MPV PT with INR INR Puncture Site ABG pH ABG pCO2 at Pt Temp ABG pO2 at Pt Temp ABG HCO3 ABG O2 Sat (Measured) ABG O2 Content ABG Base Excess Neto Test O2 Delivery Device Oxygen Flow Rate Vent Rate PEEP Pressure Support Vent Sodium Potassium Chloride Carbon Dioxide Anion Gap BUN Creatinine Est GFR (CKD-EPI)AfAm Est GFR (CKD-EPI)NonAf Random Glucose Serum Osmolality Calcium Phosphorus Magnesium Urine Color Yellow Urine Appearance Turbid Urine pH 5.5 Ur Specific [place] 1.016 Urine Protein Negative Urine Glucose (UA) Negative Urine Ketones Negative Urine Blood Negative Urine Nitrite Negative Urine Bilirubin Negative Urine Urobilinogen 0.2 Ur Leukocyte Esterase 2+ H Urine WBC (Auto) 20 Urine RBC (Auto) 5 Urine Casts (Auto) 13 U Pathogenic Cast Auto None seen U Epithel Cells (Auto) 4.3 U Sm Round Cell (Auto) None seen Urine Crystals (Auto) Uric acid Urine Bacteria (Auto) 4.4 Urine Osmolality 443 Ur Random Creatinine Ur Random Sodium 19 L Ur Random Potassium 42.0 Ur Random Chloride < 11 L Random Vancomycin 05/16/19 05/16/19 05/16/19 06:00 09:06 09:06 WBC RBC Hgb Hct MCV MCH MCHC RDW Plt Count MPV PT with INR 12.10 INR 1.03 Puncture Site Right brachial ABG pH 7.34 L ABG pCO2 at Pt Temp 68.0 H ABG pO2 at Pt Temp < 49 L ABG HCO3 35.3 H ABG O2 Sat (Measured) 48.3 L ABG O2 Content No Result Required. ABG Base Excess 7.8 H Neto Test Positive O2 Delivery Device Vent Oxygen Flow Rate 50% Vent Rate 18 PEEP 10.0 Pressure Support Vent 450 Sodium Potassium Chloride Carbon Dioxide Anion Gap BUN Creatinine Est GFR (CKD-EPI)AfAm Est GFR (CKD-EPI)NonAf Random Glucose Serum Osmolality Calcium Phosphorus Magnesium Urine Color Urine Appearance Urine pH Ur Specific [place] Urine Protein Urine Glucose (UA) Urine Ketones Urine Blood Urine Nitrite Urine Bilirubin Urine Urobilinogen Ur Leukocyte Esterase Urine WBC (Auto) Urine RBC (Auto) Urine Casts (Auto) U Pathogenic Cast Auto U Epithel Cells (Auto) U Sm Round Cell (Auto) Urine Crystals (Auto) Urine Bacteria (Auto) Urine Osmolality Ur Random Creatinine Ur Random Sodium Ur Random Potassium Ur Random Chloride Random Vancomycin 16.8 L 05/16/19 05/16/19 05/16/19 09:06 09:06 09:06 WBC 8.2 RBC 4.08 Hgb 11.3 L Hct 36.0 MCV 88.1 MCH 27.8 MCHC 31.6 L RDW 18.7 H Plt Count 259 MPV 6.7 L PT with INR INR Puncture Site ABG pH ABG pCO2 at Pt Temp ABG pO2 at Pt Temp ABG HCO3 ABG O2 Sat (Measured) ABG O2 Content ABG Base Excess Neto Test O2 Delivery Device Oxygen Flow Rate Vent Rate PEEP Pressure Support Vent Sodium 135 L Potassium 4.5 Chloride 92 L Carbon Dioxide 37 H Anion Gap 6 L BUN 53.2 H Creatinine 1.5 H Est GFR (CKD-EPI)AfAm 59.88 Est GFR (CKD-EPI)NonAf 51.67 Random Glucose 89 Serum Osmolality 297 Calcium 8.1 L Phosphorus 5.2 H Magnesium 2.6 H Urine Color Urine Appearance Urine pH Ur Specific [place] Urine Protein Urine Glucose (UA) Urine Ketones Urine Blood Urine Nitrite Urine Bilirubin Urine Urobilinogen Ur Leukocyte Esterase Urine WBC (Auto) Urine RBC (Auto) Urine Casts (Auto) U Pathogenic Cast Auto U Epithel Cells (Auto) U Sm Round Cell (Auto) Urine Crystals (Auto) Urine Bacteria (Auto) Urine Osmolality Ur Random Creatinine Ur Random Sodium Ur Random Potassium Ur Random Chloride Random Vancomycin Active Medications Generic Name Dose Route Start Last Admin Trade Name Freq PRN Reason Stop Dose Admin Albuterol/Ipratropium 1 amp 05/14/19 12:00 05/16/19 12:18 Duoneb - NEB 1 amp RQID MINDI Administration Chlorhexidine Gluconate 1 applic 05/13/19 22:00 05/15/19 21:51 Hibiclens For Decolonization - TP 1 applic HS MINDI Administration Clotrimazole 1 applic 05/13/19 22:00 05/16/19 10:10 Lotrimin 1% Cream - TP 1 applic BID MINDI Administration Escitalopram Oxalate 10 mg 05/14/19 10:00 05/16/19 10:11 Lexapro - NGT 10 mg DAILY MINDI Administration Heparin Sodium (Porcine) 5,000 unit 05/15/19 14:00 05/16/19 05:36 Heparin - SQ 5,000 unit TID MINDI Administration Propofol 1,000,000 mcg in 100 mls @ 5.715 mls/hr 05/13/19 16:00 05/16/19 05: 00 Diprivan - IVPB 27 mcg/kg/min TITR MINDI 30.862 mls/hr Administration Protocol 5 MCG/KG/MIN Piperacillin Sod/Tazobactam 100 mls @ 200 mls/hr 05/14/19 16:00 05/16/19 10: 10 Sod 4.5 gm/ Dextrose IVPB 200 mls/hr Q8H-IV MINDI Administration Protocol Fentanyl 500 mcg/ Dextrose 100 mls @ 20 mls/hr 05/14/19 16:15 05/16/19 01:30 IVPB 100 mcg/hr TITR MINDI 20 mls/hr Administration 100 MCG/HR Methylprednisolone Sodium Succinate 40 mg 05/16/19 10:00 05/16/19 10:11 Solu-Medrol - IVPUSH 40 mg DAILY MINDI Administration Mupirocin 1 applic 05/13/19 22:00 05/16/19 10:10 Bactroban Ointment (For Decolonization) - NS 05/18/19 21:59 1 applic BID MINDI Administration Sodium Zirconium Cyclosilicate 10 gm 05/16/19 11:52 Lokelma PO DAILY MINDI ASSESSMENT/PLAN: Satya Rosario is a 54 year old with a past medical history of COPD, OHS, RANJIT, HTN, CHF (last echo in March showing normal EF), GERD, MDD who is admitted to the ICU for acute on chronic hypercapneic hypoxic respiratory failure secondary to long-standing COPD, OHS, RANJIT, and non-compliance with home oxygen therapy and nightly CPAP. Acute on chronic hypercapneic hypoxic respiratory failure COPD OHS RANJIT HTN GERD NEUROLOGIC - off sedation - alert and oriented - hold home gabapentin CARDIOLOGY - last echo 04/14 showing normal EF, normal left ventricle function and size - hold beta phuong in acute COPD exacerbation - troponins negative - hold spironolactone in setting of hyperkalemia - on terlipressin, non-formulary, holding BP meds in setting of lower pressures , can restart if BPs increase RESPIRATORY - extubated today to Venti-mask - BiPAP on at night for RANJIT - PFTs performed in March showing patient with severe restrictive disease and severe diffusion deficit - ABGs showing continued acute on chronic hypercapneic hypoxic process - today ABG showing pH 7.34, CO2 68, O2 49, improving - continue Solumedrol 40mg IV daily, titrate as necessary - CXR showing widened mediastinum - questionable PNA process RENAL - FAITH, today 1.5, baseline 0.8 - avoid overhydration due to hx of CHF - potassium 4,5 today, improved, continue to monitor - stop Lokelma - TTKG 4.82, lower than expected for hyperkalemia, spironolactone not given for several days, possibility of hypoaldosteronism - renin levels pending - monitor urine output GASTROINTESTINAL - d/c Protonix - restart home ranitidine INFECTIOUS DISEASE - switch Zosyn to ertapenem - blood cxs gram positive cocci in clusters, likely contamination, stop vancomycin - urine cxs Ecoli - Legionella and strep urine antigens - sputum cxs - continue to monitor for signs of infection, WBC, fevers - Dr. Nielson consulted, recs appreciated HEMATOLOGY - no acute issues PSYCHIATRIC - continue home Lexapro 10mg to avoid discontinuation syndrome F/E/N - no standing fluids - continue to monitor electrolytes and replete as necessary - full liquid diet, advance as tolerated LINES - R wrist inserted 05/15 PROPHYLAXIS - on Lovenox 40mg subq bid CODE - full code DISPO - continue to monitor in ICU CASE DISCUSSED WITH DR JOHN CAZARES DO - PGY-1 INTERNAL MEDICINE Visit type - Emergency Visit Emergency Visit: No - New Patient This patient is new to me today: No - Critical Care Critical Care patient: Yes Total Critical Care Time (in minutes): 39 Critical Care Statement: The care of this patient involved high complexity decision making to prevent further life threatening deterioration of the patient 's condition and/or to evaluate & treat vital organ system(s) failure or risk of failure.
--- NOTE | 2019-05-16 13:50 | PN ---
Progress Note (short form) - Note Progress Note: extubated feels great eating lunch Vital Signs Period Temp Pulse Resp BP Sys/Melgoza Pulse Ox Last 24 Hr 97.8 F-98.4 F 45-82 16-29 85-117/56-86 93-96 cor-rrr lungs decreased bs at bases abd soft,nt ext no edema love with cloudy urine CBC, BMP 05/16/19 09:06 05/16/19 09:06 Microbiology 05/15/19 09:45 Sputum - Endotrachea Suction/Ventilator Gram Stain - Final 05/15/19 09:45 Sputum - Endotrachea Suction/Ventilator Sputum Culture - Preliminary NORMAL RESPIRATORY JERRY 05/13/19 11:25 Blood - Peripheral Venous Blood Culture - Preliminary NO GROWTH OBTAINED AFTER 72 HOURS, INCUBATION TO CONTINUE FOR 2 DAYS. 05/15/19 09:45 Urine For Antigen Detection Legionella Antigen - Final 05/15/19 09:45 Urine For Antigen Detection Streptococcus pneumoniae Antigen (M - Final 05/13/19 11:40 Blood - Peripheral Venous Blood Culture - Preliminary Staphylococcus Coagulase Neg 05/13/19 13:05 Urine - Urine - Catheterized Urine Culture - Final Escherichia Coli Esbl [employer]ist a/p acute on chronic hypercapneic resp failure cannot r/o pneumonia COPD OSAS morbid obesity hyperkalemia increased creatinine-f/u with renal switch to ertapenem clinically improving blood culture isolate contaminant- no need for further vancomycin Problem List - Problems (1) Acute on chronic respiratory failure with hypoxia and hypercapnia Code(s): J96.21 - ACUTE AND CHRONIC RESPIRATORY FAILURE WITH HYPOXIA; J96.22 - ACUTE AND CHRONIC RESPIRATORY FAILURE WITH HYPERCAPNIA (2) Pneumonia Code(s): J18.9 - PNEUMONIA, UNSPECIFIED ORGANISM (3) COPD (chronic obstructive pulmonary disease) Code(s): J44.9 - CHRONIC OBSTRUCTIVE PULMONARY DISEASE, UNSPECIFIED (4) RANJIT (obstructive sleep apnea) Code(s): G47.33 - OBSTRUCTIVE SLEEP APNEA (ADULT) (PEDIATRIC) (5) Morbid obesity Code(s): E66.01 - MORBID (SEVERE) OBESITY DUE TO EXCESS CALORIES (6) Hyperkalemia Code(s): E87.5 - HYPERKALEMIA
--- NOTE | 2019-05-16 13:59 | PN ---
Progress Note, Physician History of Present Illness: Pt seen and examine at bedside. He is now extubated. He denies history of CKD. - Current Medication List Current Medications: Active Medications Albuterol/Ipratropium (Duoneb -) 1 amp NEB RQID [facility] Last Admin: 05/16/19 12:18 Dose: 1 amp Chlorhexidine Gluconate (Hibiclens For Decolonization -) 1 applic TP HS [facility] Last Admin: 05/15/19 21:51 Dose: 1 applic Clotrimazole (Lotrimin 1% Cream -) 1 applic TP BID [facility] Last Admin: 05/16/19 10:10 Dose: 1 applic Escitalopram Oxalate (Lexapro -) 10 mg NGT DAILY [facility] Last Admin: 05/16/19 10:11 Dose: 10 mg Heparin Sodium (Porcine) (Heparin -) 5,000 unit SQ TID [facility] Last Admin: 05/16/19 05:36 Dose: 5,000 unit Propofol (Diprivan -) 1,000,000 mcg in 100 mls @ 5.715 mls/hr IVPB TITR [facility]; Protocol Last Admin: 05/16/19 05:00 Dose: 27 mcg/kg/min, 30.862 mls/hr Fentanyl 500 mcg/ Dextrose 100 mls @ 20 mls/hr IVPB TITR [facility] Last Admin: 05/16/19 01:30 Dose: 100 mcg/hr, 20 mls/hr Ertapenem 1 gm/ Sodium (Chloride) 50 mls @ 100 mls/hr IVPB DAILY [facility] Methylprednisolone Sodium Succinate (Solu-Medrol -) 40 mg IVPUSH DAILY [facility] Last Admin: 05/16/19 10:11 Dose: 40 mg Mupirocin (Bactroban Ointment (For Decolonization) -) 1 applic NS BID [facility] Stop: 05/18/19 21:59 Last Admin: 05/16/19 10:10 Dose: 1 applic Ranitidine HCl (Zantac -) 150 mg PO BID [facility] Sodium Zirconium Cyclosilicate (Lokelma) 10 gm PO DAILY [facility] - Objective Vital Signs: Vital Signs Temperature 98.4 F 05/16/19 08:00 Pulse Rate 82 05/16/19 12:00 Respiratory Rate 25 H 05/16/19 12:00 Blood Pressure 117/70 05/16/19 12:00 O2 Sat by Pulse Oximetry (%) 95 08/20/19 10:05 Constitutional: Yes: Calm Eyes: Yes: Conjunctiva Clear HENT: Yes: Atraumatic Neck: Yes: Supple Cardiovascular: Yes: S1, S2 Gastrointestinal: Yes: Soft, Abdomen, Obese Genitourinary: Yes: WNL Musculoskeletal: Yes: WNL Edema: Yes Edema: LLE: 1+, RLE: 1+ Neurological: Yes: Oriented Psychiatric: Yes: Oriented Labs: CBC, BMP 05/16/19 09:06 05/16/19 09:06 INR, PTT INR 1.03 (0.83-1.09) 05/16/19 09:06 Problem List - Problems (1) FAITH (acute kidney injury) Code(s): N17.9 - ACUTE KIDNEY FAILURE, UNSPECIFIED (2) COPD (chronic obstructive pulmonary disease) Code(s): J44.9 - CHRONIC OBSTRUCTIVE PULMONARY DISEASE, UNSPECIFIED (3) HTN (hypertension) Code(s): I10 - ESSENTIAL (PRIMARY) HYPERTENSION (4) Hyperkalemia Code(s): E87.5 - HYPERKALEMIA (5) Acute respiratory failure with hypoxia and hypercarbia Code(s): J96.01 - ACUTE RESPIRATORY FAILURE WITH HYPOXIA; J96.02 - ACUTE RESPIRATORY FAILURE WITH HYPERCAPNIA (6) COPD exacerbation Code(s): J44.1 - CHRONIC OBSTRUCTIVE PULMONARY DISEASE W (ACUTE) EXACERBATION (7) Obesity hypoventilation syndrome Code(s): E66.2 - MORBID (SEVERE) OBESITY WITH ALVEOLAR HYPOVENTILATION (8) Morbid obesity Code(s): E66.01 - MORBID (SEVERE) OBESITY DUE TO EXCESS CALORIES Assessment/Plan Current Medications Generic Name Dose Route Start Last Admin Trade Name Freq PRN Reason Stop Dose Admin Albuterol/Ipratropium 1 amp 05/14/19 12:00 05/16/19 12:18 Duoneb - NEB 1 amp RQID [facility] Administration Chlorhexidine Gluconate 1 applic 05/13/19 22:00 05/15/19 21:51 Hibiclens For Decolonization - TP 1 applic HS [facility] Administration Clotrimazole 1 applic 05/13/19 22:00 05/16/19 10:10 Lotrimin 1% Cream - TP 1 applic BID [facility] Administration Escitalopram Oxalate 10 mg 05/14/19 10:00 05/16/19 10:11 Lexapro - NGT 10 mg DAILY [facility] Administration Heparin Sodium (Porcine) 5,000 unit 05/15/19 14:00 05/16/19 05:36 Heparin - SQ 5,000 unit TID [facility] Administration Propofol 1,000,000 mcg in 100 mls @ 5.715 mls/hr 05/13/19 16:00 05/16/19 05: 00 Diprivan - IVPB 27 mcg/kg/min TITR [facility] 30.862 mls/hr Administration Protocol 5 MCG/KG/MIN Fentanyl 500 mcg/ Dextrose 100 mls @ 20 mls/hr 05/14/19 16:15 05/16/19 01:30 IVPB 100 mcg/hr TITR [facility] 20 mls/hr Administration 100 MCG/HR Ertapenem 1 gm/ Sodium 50 mls @ 100 mls/hr 05/16/19 14:00 Chloride IVPB DAILY [facility] Methylprednisolone Sodium Succinate 40 mg 05/16/19 10:00 05/16/19 10:11 Solu-Medrol - IVPUSH 40 mg DAILY [facility] Administration Mupirocin 1 applic 05/13/19 22:00 05/16/19 10:10 Bactroban Ointment (For Decolonization) - NS 05/18/19 21:59 1 applic BID [facility] Administration Ranitidine HCl 150 mg 05/16/19 22:00 Zantac - PO BID [facility] Sodium Zirconium Cyclosilicate 10 gm 05/16/19 11:52 Lokelma PO DAILY [facility] Impression 1. FAITH 2. hyperkalemia 3. obesity 4. respiratory failure 5. uti 6. pulm htn 7. chf Plan - potassium is improved - stop lokelma - monitor renal function - follow up renal ultrasound - follow urine lytes - volume status is improving
--- NOTE | 2019-05-16 14:18 | PN ---
Teaching Attending Note Name of Resident: Tera Grimm ATTENDING PHYSICIAN STATEMENT I saw and evaluated the patient. I reviewed the resident's note and discussed the case with the resident. I agree with the resident's findings and plan as documented. SUBJECTIVE: Pt seen and examined in the ICU. Placed on CPAP/PS trials and subsequently extubated during rounds. OBJECTIVE: Vital Signs Period Temp Pulse Resp BP Sys/Melgoza Pulse Ox Last 24 Hr 97.8 F-98.4 F 45-82 16-29 85-117/56-78 94-96 Intake & Output 05/13/19 05/14/19 05/15/19 05/16/19 23:59 23:59 23:59 23:59 Intake Total 2218 770 2150 Output Total 600 1700 400 Balance 1618 -930 1750 Weight 186 kg 186 kg 181.2 kg 182.514 kg Gen: extubated Heart: RRR Lung: distant breath sounds Abd: soft, nontender, obese Ext: no edema CBC, BMP 05/16/19 09:06 05/16/19 09:06 Active Medications Albuterol/Ipratropium (Duoneb -) 1 amp NEB RQID [facility] Last Admin: 05/16/19 12:18 Dose: 1 amp Chlorhexidine Gluconate (Hibiclens For Decolonization -) 1 applic TP HS [facility] Last Admin: 05/15/19 21:51 Dose: 1 applic Clotrimazole (Lotrimin 1% Cream -) 1 applic TP BID [facility] Last Admin: 05/16/19 10:10 Dose: 1 applic Escitalopram Oxalate (Lexapro -) 10 mg NGT DAILY [facility] Last Admin: 05/16/19 10:11 Dose: 10 mg Heparin Sodium (Porcine) (Heparin -) 5,000 unit SQ TID [facility] Last Admin: 05/16/19 05:36 Dose: 5,000 unit Propofol (Diprivan -) 1,000,000 mcg in 100 mls @ 5.715 mls/hr IVPB TITR [facility]; Protocol Last Admin: 05/16/19 05:00 Dose: 27 mcg/kg/min, 30.862 mls/hr Fentanyl 500 mcg/ Dextrose 100 mls @ 20 mls/hr IVPB TITR [facility] Last Admin: 05/16/19 01:30 Dose: 100 mcg/hr, 20 mls/hr Ertapenem 1 gm/ Sodium (Chloride) 50 mls @ 100 mls/hr IVPB DAILY [facility] Methylprednisolone Sodium Succinate (Solu-Medrol -) 40 mg IVPUSH DAILY [facility] Last Admin: 05/16/19 10:11 Dose: 40 mg Mupirocin (Bactroban Ointment (For Decolonization) -) 1 applic NS BID [facility] Stop: 05/18/19 21:59 Last Admin: 05/16/19 10:10 Dose: 1 applic Ranitidine HCl (Zantac -) 150 mg PO BID [facility] Sodium Zirconium Cyclosilicate (Lokelma) 10 gm PO DAILY [facility] ASSESSMENT AND PLAN: Acute on Chronic Hypoxic and Hypercapneic Respiratory Failure r/o Acute COPD Exacerbation Severe Restrictive Lung Disease UTI Morbid Obesity Pulmonary HTN LV Diastolic Dysfunction RANJIT/OHS Acute on Chronic Renal Failure - pt extubated - continue antibiotics - taper medrol - inhaled bronchodilators - taper Fio2 to keep Spo2 >85% - monitor urine output, creatinine - monitor lytes - DVT/GI prophylaxis - continue ICU monitoring critical care time spent in reviewing chart, evaluating patient and formulating plan 35 min
[2019-05-16] MEDS: ERTAPENEM SODIUM 1 GM in SODIUM CHLORIDE 50 ML IVPB SCH (15:00)
[2019-05-16] MEDS: RANITIDINE HCL 150 MG TABLET (FP) PO SCH (21:14)
[2019-05-16] MEDS: CHLORHEXIDINE GLUCONATE 4% CLEANSER FOR DECOLONIZATION TP SCH (21:15)
[2019-05-17] MEDS: HEPARIN NA (PORCINE) 5,000 UNITS/ML 1ML VIAL SQ SCH ×3 (05:40→21:27)
[2019-05-17 08:09] LABS: HEMATOCRIT 38.4 % (35.4-49); MCH 28.1 pg (25.7-33.7); MCHC 31.4 g/dl (32.0-35.9); MEAN CELL VOLUME 89.5 fl (80-96); MEAN PLT VOLUME 7.2 fl (7.5-11.1); PLATELET COUNT 256 K/MM3 (134-434); RBC 4.28 M/mm3 (4.00-5.60); RDW 18.8 % (11.9-15.9); WHITE BLOOD COUNT 6.9 K/mm3 (4.0-10.0)
[2019-05-17 08:39] LABS: BLOOD UREA NITROGEN 32.5 mg/dL (7-18); CALCIUM 8.5 mg/dL (8.5-10.1); CREATININE 0.9 mg/dL (0.55-1.3); MAGNESIUM 2.9 mg/dL (1.8-2.4); POTASSIUM 4.6 mmol/L (3.5-5.1)
[2019-05-17] MEDS: ALBUTEROL SO4 2.5/IPRATROPIUM 0.5 INH SOL 3 ML VIAL.NEB. NEB SCH ×4 (08:45→20:30)
[2019-05-17] MEDS ORDERED: PT OWN MED DRAWER 7, Y5N ONE (09:24)
[2019-05-17] MEDS: ERTAPENEM SODIUM 1 GM in SODIUM CHLORIDE 50 ML IVPB SCH (09:48)
[2019-05-17] MEDS: ESCITALOPRAM OXALATE 10 MG TABLET (FP) PO SCH (09:48)
[2019-05-17] MEDS: methylPREDNISolone NA SUCC 40 MG/1 ML VIAL IVPUSH SCH (09:48)
[2019-05-17] MEDS: RANITIDINE HCL 150 MG TABLET (FP) PO SCH ×2 (09:48→21:27)
[2019-05-17] MEDS: CLOTRIMAZOLE 1% CREAM 15 GM TUBE TP SCH ×2 (09:50→21:27)
[2019-05-17] MEDS: MUPIROCIN 2% TOPICAL OINTMENT FOR DECOLONIZATION NS SCH ×2 (09:50→21:28)
--- NOTE | 2019-05-17 10:01 | PN ---
Progress Note (short form) - Note Progress Note: Events noted extubated not confused no distress ate well love removed today Vital Signs - 24 hr 05/16/19 05/16/19 05/16/19 12:00 14:00 16:00 Temperature 98.6 F 98.4 F Pulse Rate 82 88 94 H Respiratory 25 H 20 20 Rate Blood Pressure 117/70 143/94 113/74 O2 Sat by Pulse Oximetry (%) 05/16/19 05/16/19 05/16/19 18:00 20:00 20:46 Temperature 98.2 F Pulse Rate 93 H 89 Respiratory 203 H Rate Blood Pressure 135/76 115/99 O2 Sat by Pulse 95 Oximetry (%) 05/16/19 05/16/19 05/17/19 22:00 22:26 00:00 Temperature 98 F Pulse Rate 82 84 Respiratory 20 20 Rate Blood Pressure 119/73 126/83 O2 Sat by Pulse 96 Oximetry (%) 05/17/19 05/17/19 05/17/19 01:25 02:00 04:00 Temperature 97.8 F Pulse Rate 75 75 Respiratory 20 19 Rate Blood Pressure 104/65 117/63 O2 Sat by Pulse 95 Oximetry (%) 05/17/19 05/17/19 05/17/19 05:29 06:00 08:00 Temperature 97.8 F 98.2 F Pulse Rate 81 76 Respiratory 18 32 H Rate Blood Pressure 110/79 120/75 O2 Sat by Pulse 94 L Oximetry (%) 05/17/19 09:00 Temperature Pulse Rate Respiratory Rate Blood Pressure O2 Sat by Pulse 98 Oximetry (%) Current Medications Generic Name Dose Route Start Last Admin Trade Name Freq PRN Reason Stop Dose Admin Albuterol/Ipratropium 1 amp 05/14/19 12:00 05/16/19 20:30 Duoneb - NEB 1 amp RQID [facility] Administration Chlorhexidine Gluconate 1 applic 05/13/19 22:00 05/16/19 21:15 Hibiclens For Decolonization - TP 1 applic HS [facility] Administration Clotrimazole 1 applic 05/13/19 22:00 05/17/19 09:50 Lotrimin 1% Cream - TP 1 applic BID [facility] Administration Escitalopram Oxalate 10 mg 05/17/19 08:19 05/17/19 09:48 Lexapro - PO 10 mg DAILY [facility] Administration Heparin Sodium (Porcine) 5,000 unit 05/15/19 14:00 05/17/19 05:40 Heparin - SQ 5,000 unit TID [facility] Administration Ertapenem 1 gm/ Sodium 50 mls @ 100 mls/hr 05/16/19 14:00 05/17/19 09:48 Chloride IVPB 100 mls/hr DAILY [facility] Administration Methylprednisolone Sodium Succinate 40 mg 05/16/19 10:00 05/17/19 09:48 Solu-Medrol - IVPUSH 40 mg DAILY [facility] Administration Mupirocin 1 applic 05/13/19 22:00 05/17/19 09:50 Bactroban Ointment (For Decolonization) - NS 05/18/19 21:59 1 applic BID [facility] Administration Ranitidine HCl 150 mg 05/16/19 22:00 05/17/19 09:48 Zantac - PO 150 mg BID [facility] Administration Laboratory Results - last 24 hr 05/17/19 05/17/19 06:50 06:50 WBC 6.9 RBC 4.28 Hgb 12.0 Hct 38.4 MCV 89.5 MCH 28.1 MCHC 31.4 L RDW 18.8 H Plt Count 256 MPV 7.2 L Sodium 141 Potassium 4.6 Chloride 98 Carbon Dioxide 37 H Anion Gap 6 L BUN 32.5 H Creatinine 0.9 Est GFR (CKD-EPI)AfAm 111.05 Est GFR (CKD-EPI)NonAf 95.81 Random Glucose 80 Calcium 8.5 Phosphorus 3.0 Magnesium 2.9 H S1 S2 RRR Lungs decreased breath sounds morbid obesity Abd- soft , ND edema+ PLAN Acute hypercapniec respiratory failure COPD exacerbation morbid obesity Sleep apnea diastolic CHF Pneumonia? -- extubated -- ok to transfer to the floor -- off Aldactone -- on meds -- on iv antibiotics -- PT eval Problem List - Problems (1) COPD (chronic obstructive pulmonary disease) Code(s): J44.9 - CHRONIC OBSTRUCTIVE PULMONARY DISEASE, UNSPECIFIED (2) COPD exacerbation Code(s): J44.1 - CHRONIC OBSTRUCTIVE PULMONARY DISEASE W (ACUTE) EXACERBATION (3) GERD (gastroesophageal reflux disease) Code(s): K21.9 - GASTRO-ESOPHAGEAL REFLUX DISEASE WITHOUT ESOPHAGITIS (4) HTN (hypertension) Code(s): I10 - ESSENTIAL (PRIMARY) HYPERTENSION (5) Hyperkalemia Code(s): E87.5 - HYPERKALEMIA (6) RANJIT (obstructive sleep apnea) Code(s): G47.33 - OBSTRUCTIVE SLEEP APNEA (ADULT) (PEDIATRIC) (7) Pneumonia Code(s): J18.9 - PNEUMONIA, UNSPECIFIED ORGANISM
--- NOTE | 2019-05-17 10:05 | PN ---
Progress Note (short form) - Note Progress Note: extubated feels great minimally ambulatory- due to knee pain exam limited by obesity Vital Signs Period Temp Pulse Resp BP Sys/Melgoza Pulse Ox Last 24 Hr 97.8 F-98.6 F 75-94 18-203 97-143/62-99 94-96 cor-rrr lungs decreased bs at bases abd nontender ext no edema CBC, BMP 05/17/19 06:50 05/17/19 06:50 Microbiology 05/13/19 11:40 Blood - Peripheral Venous Blood Culture - Final Staph Hominis Sub Sp Hominis 05/15/19 09:45 Sputum - Endotrachea Suction/Ventilator Gram Stain - Final 05/15/19 09:45 Sputum - Endotrachea Suction/Ventilator Sputum Culture - Preliminary NORMAL RESPIRATORY JERRY 05/13/19 11:25 Blood - Peripheral Venous Blood Culture - Preliminary NO GROWTH OBTAINED AFTER 72 HOURS, INCUBATION TO CONTINUE FOR 2 DAYS. 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 resp failure COPD OSAS morbid obesity hyperkalemia i clinically improving day #4 antibiotics continue ertapenem blood culture isolate contaminant- no need for further vancomycin Problem List - Problems (1) Acute on chronic respiratory failure with hypoxia and hypercapnia Code(s): J96.21 - ACUTE AND CHRONIC RESPIRATORY FAILURE WITH HYPOXIA; J96.22 - ACUTE AND CHRONIC RESPIRATORY FAILURE WITH HYPERCAPNIA (2) Pneumonia Code(s): J18.9 - PNEUMONIA, UNSPECIFIED ORGANISM (3) COPD (chronic obstructive pulmonary disease) Code(s): J44.9 - CHRONIC OBSTRUCTIVE PULMONARY DISEASE, UNSPECIFIED (4) RANJIT (obstructive sleep apnea) Code(s): G47.33 - OBSTRUCTIVE SLEEP APNEA (ADULT) (PEDIATRIC) (5) Morbid obesity Code(s): E66.01 - MORBID (SEVERE) OBESITY DUE TO EXCESS CALORIES (6) Hyperkalemia Code(s): E87.5 - HYPERKALEMIA
--- NOTE | 2019-05-17 11:24 | PN ---
Physical Exam: SUBJECTIVE: BiPap used overnight today. Pt remains extubated with improved work of breathing. No complaints today. OBJECTIVE: Vital Signs Period Temp Pulse Resp BP Sys/Melgoza Pulse Ox Last 24 Hr 97.8 F-98.6 F 75-94 18-203 104-143/63-99 94-98 GENERAL: NAD, awake, alert, and fully oriented, in no acute distress. HEENT: NC/AT, NIDHI, sclera anicteric, LUNGS: Aeration down to bases today with distant lung sounds bilaterally, no wheezes, transitioned to NC 4L this morning HEART: Regular rate and rhythm, S1, S2 without murmur, rub or gallop. ABDOMEN: Soft,NT/ND, normoactive bowel sounds, no guarding EXTREMITIES: 2+ DP pulses, warm, well-perfused, no edema. PSYCH: Normal mood, normal affect. SKIN: Warm, dry, no rashes or lesions noted Laboratory Results 05/17/19 05/17/19 06:50 06:50 WBC 6.9 RBC 4.28 Hgb 12.0 Hct 38.4 MCV 89.5 MCH 28.1 MCHC 31.4 L RDW 18.8 H Plt Count 256 MPV 7.2 L Sodium 141 Potassium 4.6 Chloride 98 Carbon Dioxide 37 H Anion Gap 6 L BUN 32.5 H Creatinine 0.9 Est GFR (CKD-EPI)AfAm 111.05 Est GFR (CKD-EPI)NonAf 95.81 Random Glucose 80 Calcium 8.5 Phosphorus 3.0 Magnesium 2.9 H Active Medications Generic Name Dose Route Start Last Admin Trade Name Freq PRN Reason Stop Dose Admin Albuterol/Ipratropium 1 amp 05/14/19 12:00 05/16/19 20:30 Duoneb - NEB 1 amp RQID [facility] Administration Chlorhexidine Gluconate 1 applic 05/13/19 22:00 05/16/19 21:15 Hibiclens For Decolonization - TP 1 applic HS [facility] Administration Clotrimazole 1 applic 05/13/19 22:00 05/17/19 09:50 Lotrimin 1% Cream - TP 1 applic BID [facility] Administration Escitalopram Oxalate 10 mg 05/17/19 08:19 05/17/19 09:48 Lexapro - PO 10 mg DAILY [facility] Administration Heparin Sodium (Porcine) 5,000 unit 05/15/19 14:00 05/17/19 05:40 Heparin - SQ 5,000 unit TID [facility] Administration Ertapenem 1 gm/ Sodium 50 mls @ 100 mls/hr 05/16/19 14:00 05/17/19 09:48 Chloride IVPB 100 mls/hr DAILY [facility] Administration Mupirocin 1 applic 05/13/19 22:00 05/17/19 09:50 Bactroban Ointment (For Decolonization) - NS 05/18/19 21:59 1 applic BID [facility] Administration Prednisone 40 mg 05/18/19 10:00 Deltasone - PO DAILY [facility] Ranitidine HCl 150 mg 05/16/19 22:00 05/17/19 09:48 Zantac - PO 150 mg BID [facility] Administration ASSESSMENT/PLAN: Acute on chronic hypercapneic hypoxic respiratory failure Acute COPD Exacerbation Restrictive lung disease UTI Pulmonary HTN RANJIT Obesity hypoventilation syndrome Acute renal failure --Continue Ertapenem day 2 1gm --Downgrade to Prednisone 40mg qdaily today --Continue to monitor O2 (goal 88-91%) --BiPAP to be used at night --Can use NC in daytime --Duoneb QID and albuterol PRN FEN: Fluids: None Electrolyte abnormalities: None Nutrition: Advance as tolerated with stable resp status PPX: DVT - Heparin TID due to Cr elevation GI - Zantac BID Dispo: Transfer to telemetry for pulse ox. monitoring Case discussed with Dr. Leon Figueroa, DO - IM PGY-3 Visit type - Emergency Visit Emergency Visit: Yes ED Registration Date: 05/13/19 Care time: The patient presented to the Emergency Department on the above date and was hospitalized for further evaluation of their emergent condition. - New Patient This patient is new to me today: No - Critical Care Critical Care patient: Yes Total Critical Care Time (in minutes): 35 Critical Care Statement: The care of this patient involved high complexity decision making to prevent further life threatening deterioration of the patient 's condition and/or to evaluate & treat vital organ system(s) failure or risk of failure.
--- NOTE | 2019-05-17 12:19 | PN ---
Teaching Attending Note Name of Resident: Tera Figueroa ATTENDING PHYSICIAN STATEMENT I saw and evaluated the patient. I reviewed the resident's note and discussed the case with the resident. I agree with the resident's findings and plan as documented. SUBJECTIVE: Pt seen and examined in the ICU. Remains extubated. BiPAP overnight. Transitioned to nasal cannula during rounds. OBJECTIVE: Vital Signs Period Temp Pulse Resp BP Sys/Melgoza Pulse Ox Last 24 Hr 97.8 F-98.6 F 75-94 18-203 101-143/63-99 94-98 Intake & Output 05/14/19 05/15/19 05/16/19 05/17/19 23:59 23:59 23:59 23:59 Intake Total 2218 770 2460 340 Output Total 600 1700 2200 1600 Balance 1618 -930 260 -1260 Weight 186 kg 181.2 kg 182.514 kg 180.076 kg Gen: less tachypneic Heart: RRR Lung: distant breath sounds Abd: soft, nontender, obese Ext: no edema CBC, BMP 05/17/19 06:50 05/17/19 06:50 Active Medications Albuterol/Ipratropium (Duoneb -) 1 amp NEB RQID [facility] Last Admin: 05/16/19 20:30 Dose: 1 amp Chlorhexidine Gluconate (Hibiclens For Decolonization -) 1 applic TP HS [facility] Last Admin: 05/16/19 21:15 Dose: 1 applic Clotrimazole (Lotrimin 1% Cream -) 1 applic TP BID [facility] Last Admin: 05/17/19 09:50 Dose: 1 applic Escitalopram Oxalate (Lexapro -) 10 mg PO DAILY [facility] Last Admin: 05/17/19 09:48 Dose: 10 mg Heparin Sodium (Porcine) (Heparin -) 5,000 unit SQ TID [facility] Last Admin: 05/17/19 05:40 Dose: 5,000 unit Ertapenem 1 gm/ Sodium (Chloride) 50 mls @ 100 mls/hr IVPB DAILY [facility] Last Admin: 05/17/19 09:48 Dose: 100 mls/hr Mupirocin (Bactroban Ointment (For Decolonization) -) 1 applic NS BID [facility] Stop: 05/18/19 21:59 Last Admin: 05/17/19 09:50 Dose: 1 applic Prednisone (Deltasone -) 40 mg PO DAILY [facility] Ranitidine HCl (Zantac -) 150 mg PO BID [facility] Last Admin: 05/17/19 09:48 Dose: 150 mg ASSESSMENT AND PLAN: Acute on Chronic Hypoxic and Hypercapneic Respiratory Failure r/o Acute COPD Exacerbation Severe Restrictive Lung Disease UTI Morbid Obesity Pulmonary HTN LV Diastolic Dysfunction RANJIT/OHS Acute on Chronic Renal Failure - continue antibiotics - can change steroids to PO prednisone - inhaled bronchodilators - taper Fio2 to keep Spo2 >85% - monitor urine output, creatinine - monitor lytes - DVT/GI prophylaxis - can monitor on telemetry for pulse oximetry monitoring critical care time spent in reviewing chart, evaluating patient and formulating plan 35 min
--- NOTE | 2019-05-17 13:01 | PN ---
Progress Note, Physician History of Present Illness: Pt seen and examined at bedside. He is awake and alert. He denies shortness of breath. - Current Medication List Current Medications: Active Medications Albuterol/Ipratropium (Duoneb -) 1 amp NEB RQID [facility] Last Admin: 05/17/19 12:10 Dose: 1 amp Chlorhexidine Gluconate (Hibiclens For Decolonization -) 1 applic TP HS [facility] Last Admin: 05/16/19 21:15 Dose: 1 applic Clotrimazole (Lotrimin 1% Cream -) 1 applic TP BID [facility] Last Admin: 05/17/19 09:50 Dose: 1 applic Escitalopram Oxalate (Lexapro -) 10 mg PO DAILY [facility] Last Admin: 05/17/19 09:48 Dose: 10 mg Heparin Sodium (Porcine) (Heparin -) 5,000 unit SQ TID [facility] Last Admin: 05/17/19 05:40 Dose: 5,000 unit Ertapenem 1 gm/ Sodium (Chloride) 50 mls @ 100 mls/hr IVPB DAILY [facility] Last Admin: 05/17/19 09:48 Dose: 100 mls/hr Mupirocin (Bactroban Ointment (For Decolonization) -) 1 applic NS BID [facility] Stop: 05/18/19 21:59 Last Admin: 05/17/19 09:50 Dose: 1 applic Prednisone (Deltasone -) 40 mg PO DAILY [facility] Ranitidine HCl (Zantac -) 150 mg PO BID [facility] Last Admin: 05/17/19 09:48 Dose: 150 mg - Objective Vital Signs: Vital Signs Temperature 98.2 F 05/17/19 08:00 Pulse Rate 85 05/17/19 12:00 Respiratory Rate 19 05/17/19 12:00 Blood Pressure 103/76 05/17/19 12:00 O2 Sat by Pulse Oximetry (%) 98 05/17/19 09:00 Constitutional: Yes: Calm Eyes: Yes: Conjunctiva Clear HENT: Yes: Atraumatic Neck: Yes: Supple Cardiovascular: Yes: S1, S2 Respiratory: Yes: CTA Bilaterally, On Nasal O2 Gastrointestinal: Yes: Soft, Abdomen, Obese Genitourinary: Yes: WNL Musculoskeletal: Yes: WNL Edema: Yes Edema: LLE: 1+, RLE: 1+ Neurological: Yes: Oriented Psychiatric: Yes: Oriented Labs: CBC, BMP 08/21/19 06:50 05/17/19 06:50 INR, PTT INR 1.03 (0.83-1.09) 05/16/19 09:06 Problem List - Problems (1) FAITH (acute kidney injury) Code(s): N17.9 - ACUTE KIDNEY FAILURE, UNSPECIFIED (2) COPD (chronic obstructive pulmonary disease) Code(s): J44.9 - CHRONIC OBSTRUCTIVE PULMONARY DISEASE, UNSPECIFIED (3) HTN (hypertension) Code(s): I10 - ESSENTIAL (PRIMARY) HYPERTENSION (4) Hyperkalemia Code(s): E87.5 - HYPERKALEMIA (5) Acute respiratory failure with hypoxia and hypercarbia Code(s): J96.01 - ACUTE RESPIRATORY FAILURE WITH HYPOXIA; J96.02 - ACUTE RESPIRATORY FAILURE WITH HYPERCAPNIA (6) COPD exacerbation Code(s): J44.1 - CHRONIC OBSTRUCTIVE PULMONARY DISEASE W (ACUTE) EXACERBATION (7) Obesity hypoventilation syndrome Code(s): E66.2 - MORBID (SEVERE) OBESITY WITH ALVEOLAR HYPOVENTILATION (8) Morbid obesity Code(s): E66.01 - MORBID (SEVERE) OBESITY DUE TO EXCESS CALORIES Assessment/Plan Current Medications Generic Name Dose Route Start Last Admin Trade Name Freq PRN Reason Stop Dose Admin Albuterol/Ipratropium 1 amp 05/14/19 12:00 05/17/19 12:10 Duoneb - NEB 1 amp RQID [facility] Administration Chlorhexidine Gluconate 1 applic 05/13/19 22:00 05/16/19 21:15 Hibiclens For Decolonization - TP 1 applic HS [facility] Administration Clotrimazole 1 applic 05/13/19 22:00 05/17/19 09:50 Lotrimin 1% Cream - TP 1 applic BID [facility] Administration Escitalopram Oxalate 10 mg 05/17/19 08:19 05/17/19 09:48 Lexapro - PO 10 mg DAILY [facility] Administration Heparin Sodium (Porcine) 5,000 unit 05/15/19 14:00 05/17/19 05:40 Heparin - SQ 5,000 unit TID [facility] Administration Ertapenem 1 gm/ Sodium 50 mls @ 100 mls/hr 05/16/19 14:00 05/17/19 09:48 Chloride IVPB 100 mls/hr DAILY [facility] Administration Mupirocin 1 applic 08/17/19 22:00 05/17/19 09:50 Bactroban Ointment (For Decolonization) - NS 05/18/19 21:59 1 applic BID [facility] Administration Prednisone 40 mg 05/18/19 10:00 Deltasone - PO DAILY [facility] Ranitidine HCl 150 mg 05/16/19 22:00 05/17/19 09:48 Zantac - PO 150 mg BID [facility] Administration Impression 1. FAITH 2. hyperkalemia 3. obesity 4. respiratory failure 5. uti 6. pulm htn 7. chf Plan - renal function is improved - potassium is stable - monitor lytes - volume status is stable - renal ultrasound noted
--- NOTE | 2019-05-17 15:05 | PN ---
Progress Note, Physician History of Present Illness: Dyspnea improved, transitioned from bipap to NC. - Current Medication List Current Medications: Active Medications Albuterol/Ipratropium (Duoneb -) 1 amp NEB RQID [facility] Last Admin: 05/17/19 12:10 Dose: 1 amp Chlorhexidine Gluconate (Hibiclens For Decolonization -) 1 applic TP HS [facility] Last Admin: 05/16/19 21:15 Dose: 1 applic Clotrimazole (Lotrimin 1% Cream -) 1 applic TP BID [facility] Last Admin: 05/17/19 09:50 Dose: 1 applic Escitalopram Oxalate (Lexapro -) 10 mg PO DAILY [facility] Last Admin: 05/17/19 09:48 Dose: 10 mg Heparin Sodium (Porcine) (Heparin -) 5,000 unit SQ TID [facility] Last Admin: 05/17/19 14:33 Dose: 5,000 unit Ertapenem 1 gm/ Sodium (Chloride) 50 mls @ 100 mls/hr IVPB DAILY [facility] Last Admin: 05/17/19 09:48 Dose: 100 mls/hr Mupirocin (Bactroban Ointment (For Decolonization) -) 1 applic NS BID [facility] Stop: 05/18/19 21:59 Last Admin: 05/17/19 09:50 Dose: 1 applic Prednisone (Deltasone -) 40 mg PO DAILY [facility] Ranitidine HCl (Zantac -) 150 mg PO BID [facility] Last Admin: 05/17/19 09:48 Dose: 150 mg - Objective Vital Signs: Vital Signs Temperature 98.6 F 05/17/19 14:00 Pulse Rate 95 H 05/17/19 14:00 Respiratory Rate 23 H 05/17/19 14:00 Blood Pressure 102/60 05/17/19 14:00 O2 Sat by Pulse Oximetry (%) 98 05/17/19 09:00 Constitutional: Yes: No Distress, Calm Neck: Yes: Supple Cardiovascular: Yes: Regular Rate and Rhythm Respiratory: Yes: Regular, Diminished, On Nasal O2 Gastrointestinal: Yes: Normal Bowel Sounds, Soft, Abdomen, Obese Edema: No Labs: CBC, BMP 05/17/19 06:50 05/17/19 06:50 INR, PTT INR 1.03 (0.83-1.09) 05/16/19 09:06 - ....Imaging EKG: Report Reviewed (Tele: NSR) Problem List - Problems (1) FAITH (acute kidney injury) Code(s): N17.9 - ACUTE KIDNEY FAILURE, UNSPECIFIED (2) COPD exacerbation Code(s): J44.1 - CHRONIC OBSTRUCTIVE PULMONARY DISEASE W (ACUTE) EXACERBATION (3) HTN (hypertension) Code(s): I10 - ESSENTIAL (PRIMARY) HYPERTENSION Qualifiers: Hypertension type: essential hypertension Qualified Code(s): I10 - Essential (primary) hypertension (4) Hyperlipidemia Code(s): E78.5 - HYPERLIPIDEMIA, UNSPECIFIED Qualifiers: Hyperlipidemia type: pure hypercholesterolemia Qualified Code(s): E78.00 - Pure hypercholesterolemia, unspecified; E78.0 - Pure hypercholesterolemia (5) RANJIT (obstructive sleep apnea) Code(s): G47.33 - OBSTRUCTIVE SLEEP APNEA (ADULT) (PEDIATRIC) (6) Pneumonia Code(s): J18.9 - PNEUMONIA, UNSPECIFIED ORGANISM (7) Acute on chronic respiratory failure with hypoxia and hypercapnia Code(s): J96.21 - ACUTE AND CHRONIC RESPIRATORY FAILURE WITH HYPOXIA; J96.22 - ACUTE AND CHRONIC RESPIRATORY FAILURE WITH HYPERCAPNIA (8) Cor pulmonale Code(s): I27.81 - COR PULMONALE (CHRONIC) (9) Obesity hypoventilation syndrome Code(s): E66.2 - MORBID (SEVERE) OBESITY WITH ALVEOLAR HYPOVENTILATION (10) Pulmonary HTN Code(s): I27.20 - PULMONARY HYPERTENSION, UNSPECIFIED (11) Morbid obesity Code(s): E66.01 - MORBID (SEVERE) OBESITY DUE TO EXCESS CALORIES (12) Sleep apnea Code(s): G47.30 - SLEEP APNEA, UNSPECIFIED Qualifiers: Sleep apnea type: obstructive Qualified Code(s): G47.33 - Obstructive sleep apnea (adult) (pediatric) (13) Diastolic dysfunction Code(s): I51.9 - HEART DISEASE, UNSPECIFIED Assessment/Plan 1. Acute on chronic hypoxemic/hypercapneic respiratory failure, related to 2. Acute exacerbation of chronic obstructive pulmonary disease, possible pneumonia 3. Morbid obesity/hypoventilation syndrome and Severe Restrictive Lung Disease with 4. Severe pulmonary hypertension with cor pulmonale, clinical class II-III NYHA classification RV failure 5. Diastolic LV dysfunction with chronic class 0-I NYHA classification LV congestive heart failure, clinically compensated 6. Acute on chronic kidney disease with Hyperkalemia - resolved 7. Hyponatremia resolved 8. Tobacco abuse 9. UTI 10. Hyperlipidemia 11. Type 2 DM PLAN: 1. Resume ARB once renal fxn and K at baseline, d/c concomitant Aldactone 25 qd given h/o hyperkalemia 2. Resume Toprol XL 25 qd hemodynamics permitting, start Lipitor 20 qd 3. Taper oral steroids with GI protection, O2 and Bronchodilators as needed, complete abx course as per the primary team 4. DVT prophylaxis
[2019-05-17] MEDS: ATORVASTATIN CA 20 MG TABLET (FP) PO SCH (21:27)
[2019-05-17] MEDS: CHLORHEXIDINE GLUCONATE 4% CLEANSER FOR DECOLONIZATION TP SCH (21:28)
[2019-05-18 06:33] LABS: BASO % 0.2 % (0-2.0); EOS % 0.8 % (0-4.5); HEMATOCRIT 38.3 % (35.4-49); HEMOGLOBIN 11.8 GM/dL (11.7-16.9); LYMPH % 17.7 % (8-40); MCH 27.7 pg (25.7-33.7); MCHC 30.7 g/dl (32.0-35.9); MEAN CELL VOLUME 90.3 fl (80-96); MONO % 11.6 % (3.8-10.2); NEUT % 69.7 % (42.8-82.8); PLATELET COUNT 225 K/MM3 (134-434); RBC 4.24 M/mm3 (4.00-5.60); RDW 18.5 % (11.9-15.9); WHITE BLOOD COUNT 7.9 K/mm3 (4.0-10.0)
[2019-05-18] MEDS: HEPARIN NA (PORCINE) 5,000 UNITS/ML 1ML VIAL SQ SCH ×3 (06:59→21:12)
[2019-05-18 07:35] LABS: ALBUMIN 2.7 g/dl (3.4-5.0); BILIRUBIN,TOTAL 0.3 mg/dL (0.2-1); BLOOD UREA NITROGEN 26.2 mg/dL (7-18); CALCIUM 8.5 mg/dL (8.5-10.1); CREATININE 0.7 mg/dL (0.55-1.3); POTASSIUM 4.6 mmol/L (3.5-5.1); TOT PROT 5.6 g/dl (6.4-8.2)
[2019-05-18] MEDS: ALBUTEROL SO4 2.5/IPRATROPIUM 0.5 INH SOL 3 ML VIAL.NEB. NEB SCH ×4 (08:25→20:46)
[2019-05-18] MEDS: ERTAPENEM SODIUM 1 GM in SODIUM CHLORIDE 50 ML IVPB SCH (10:40)
[2019-05-18] MEDS: predniSONE 20 MG TABLET (UD) PO SCH (10:44)
[2019-05-18] MEDS: RANITIDINE HCL 150 MG TABLET (FP) PO SCH ×2 (10:44→21:13)
[2019-05-18] MEDS: metoPROLOL SUCCINATE 25 MG TAB.SR.24H (FP) PO SCH (10:44)
[2019-05-18] MEDS ORDERED: PT OWN MED DRAWER 7, Y5N ONE (10:44)
[2019-05-18] MEDS: ESCITALOPRAM OXALATE 10 MG TABLET (FP) PO SCH (10:45)
[2019-05-18] MEDS: CLOTRIMAZOLE 1% CREAM 15 GM TUBE TP SCH ×2 (10:45→21:13)
[2019-05-18] MEDS: MUPIROCIN 2% TOPICAL OINTMENT FOR DECOLONIZATION NS SCH (10:47)
--- NOTE | 2019-05-18 11:16 | PN ---
Progress Note (short form) - Note Progress Note: not confused no distress ate well urinating well no bm Vital Signs - 24 hr 05/17/19 05/17/19 05/17/19 12:00 14:00 16:00 Temperature 98.6 F 98.4 F Pulse Rate 85 95 H 86 Respiratory 19 23 H 18 Rate Blood Pressure 103/76 102/60 110/66 O2 Sat by Pulse Oximetry (%) 05/17/19 05/17/19 05/17/19 18:00 20:00 20:30 Temperature Pulse Rate 99 H 85 Respiratory 18 18 Rate Blood Pressure 114/96 118/79 O2 Sat by Pulse 94 L 95 Oximetry (%) 05/17/19 05/17/19 05/17/19 21:00 22:00 23:31 Temperature 98.1 F Pulse Rate 84 Respiratory 19 18 Rate Blood Pressure 96/80 O2 Sat by Pulse 94 L 93 L 95 Oximetry (%) 05/18/19 05/18/19 05/18/19 00:00 00:30 02:00 Temperature 98.7 F Pulse Rate 72 73 Respiratory 19 19 Rate Blood Pressure 94/51 L 111/70 O2 Sat by Pulse 89 L 98 Oximetry (%) 05/18/19 05/18/19 05/18/19 02:30 06:00 06:49 Temperature 98.2 F Pulse Rate 85 Respiratory 14 Rate Blood Pressure 117/75 O2 Sat by Pulse 94 L 91 L Oximetry (%) 05/18/19 08:00 Temperature Pulse Rate 76 Respiratory 19 Rate Blood Pressure 116/70 O2 Sat by Pulse 94 L Oximetry (%) Current Medications Generic Name Dose Route Start Last Admin Trade Name Williamq PRN Reason Stop Dose Admin Albuterol/Ipratropium 1 amp 05/14/19 12:00 05/18/19 08:25 Duoneb - NEB 1 amp RQID MINDI Administration Atorvastatin Calcium 20 mg 05/17/19 22:00 05/17/19 21:27 Lipitor - PO 20 mg HS MINDI Administration Chlorhexidine Gluconate 1 applic 05/13/19 22:00 05/17/19 21:28 Hibiclens For Decolonization - TP 1 applic HS MINDI Administration Clotrimazole 1 applic 05/13/19 22:00 05/18/19 10:45 Lotrimin 1% Cream - TP 1 applic BID MINDI Administration Escitalopram Oxalate 10 mg 05/17/19 08:19 05/18/19 10:45 Lexapro - PO 10 mg DAILY MINDI Administration Heparin Sodium (Porcine) 5,000 unit 05/15/19 14:00 05/18/19 06:59 Heparin - SQ 5,000 unit TID MINDI Administration Ertapenem 1 gm/ Sodium 50 mls @ 100 mls/hr 05/16/19 14:00 05/18/19 10:40 Chloride IVPB 100 mls/hr DAILY MINDI Administration Metoprolol Succinate 25 mg 05/18/19 10:00 05/18/19 10:44 Toprol Xl - PO 25 mg DAILY MINDI Administration Mupirocin 1 applic 05/13/19 22:00 05/18/19 10:47 Bactroban Ointment (For Decolonization) - NS 05/18/19 21:59 1 applic BID MINDI Administration Prednisone 40 mg 05/18/19 10:00 05/18/19 10:44 Deltasone - PO 40 mg DAILY MINDI Administration Ranitidine HCl 150 mg 05/16/19 22:00 05/18/19 10:44 Zantac - PO 150 mg BID MINDI Administration Laboratory Results - last 24 hr 05/18/19 05/18/19 05:40 05:40 WBC 7.9 RBC 4.24 Hgb 11.8 Hct 38.3 MCV 90.3 MCH 27.7 MCHC 30.7 L RDW 18.5 H Plt Count 225 MPV 7.0 L Absolute Neuts (auto) 5.5 Neutrophils % 69.7 D Lymphocytes % 17.7 D Monocytes % 11.6 H D Eosinophils % 0.8 D Basophils % 0.2 Nucleated RBC % 0 Sodium 143 Potassium 4.6 Chloride 102 Carbon Dioxide 39 H Anion Gap 3 L BUN 26.2 H Creatinine 0.7 Est GFR (CKD-EPI)AfAm 123.13 Est GFR (CKD-EPI)NonAf 106.24 Random Glucose 85 Calcium 8.5 Total Bilirubin 0.3 AST 21 ALT 28 Alkaline Phosphatase 53 Total Protein 5.6 L Albumin 2.7 L S1 S2 RRR Lungs decreased breath sounds morbid obesity Abd- soft , ND edema decreased PLAN Acute hypercapniec respiratory failure COPD exacerbation morbid obesity Sleep apnea diastolic CHF Pneumonia? -- on BIPAP at night -- ok to transfer to the floor -- off Aldactone -- on meds -- on iv antibiotics -- PT eval -- no elevated potassium Problem List - Problems (1) COPD (chronic obstructive pulmonary disease) Code(s): J44.9 - CHRONIC OBSTRUCTIVE PULMONARY DISEASE, UNSPECIFIED (2) COPD exacerbation Code(s): J44.1 - CHRONIC OBSTRUCTIVE PULMONARY DISEASE W (ACUTE) EXACERBATION (3) GERD (gastroesophageal reflux disease) Code(s): K21.9 - GASTRO-ESOPHAGEAL REFLUX DISEASE WITHOUT ESOPHAGITIS (4) HTN (hypertension) Code(s): I10 - ESSENTIAL (PRIMARY) HYPERTENSION Qualifiers: Hypertension type: essential hypertension Qualified Code(s): I10 - Essential (primary) hypertension (5) Hyperkalemia Code(s): E87.5 - HYPERKALEMIA (6) RANJIT (obstructive sleep apnea) Code(s): G47.33 - OBSTRUCTIVE SLEEP APNEA (ADULT) (PEDIATRIC) (7) Pneumonia Code(s): J18.9 - PNEUMONIA, UNSPECIFIED ORGANISM
--- NOTE | 2019-05-18 11:27 | PN ---
Teaching Attending Note Name of Resident: Tera Grimm ATTENDING PHYSICIAN STATEMENT I saw and evaluated the patient. I reviewed the resident's note and discussed the case with the resident. I agree with the resident's findings and plan as documented. SUBJECTIVE: Pt seen and examined in the ICU. Doing well. Used BiPAP overnight, saturating well on nasal cannula. OBJECTIVE: Vital Signs Period Temp Pulse Resp BP Sys/Melgoza Pulse Ox Last 24 Hr 98.1 F-98.7 F 72-99 14-23 94-118/51-96 89-99 Intake & Output 05/15/19 05/16/19 05/17/19 05/18/19 23:59 23:59 23:59 23:59 Intake Total 770 2460 1660 Output Total 1700 2200 1900 Balance -930 260 -240 Weight 181.2 kg 182.514 kg 180.076 kg 180.167 kg Gen: NAD at rest Heart: RRR Lung: decreased breath sounds at the bases Abd: soft, nontender, obese Ext: no edema CBC, BMP 05/18/19 05:40 05/18/19 05:40 Active Medications Albuterol/Ipratropium (Duoneb -) 1 amp NEB RQID [facility] Last Admin: 05/18/19 08:25 Dose: 1 amp Atorvastatin Calcium (Lipitor -) 20 mg PO HS [facility] Last Admin: 05/17/19 21:27 Dose: 20 mg Chlorhexidine Gluconate (Hibiclens For Decolonization -) 1 applic TP HS [facility] Last Admin: 05/17/19 21:28 Dose: 1 applic Clotrimazole (Lotrimin 1% Cream -) 1 applic TP BID [facility] Last Admin: 05/18/19 10:45 Dose: 1 applic Escitalopram Oxalate (Lexapro -) 10 mg PO DAILY [facility] Last Admin: 05/18/19 10:45 Dose: 10 mg Heparin Sodium (Porcine) (Heparin -) 5,000 unit SQ TID [facility] Last Admin: 05/18/19 06:59 Dose: 5,000 unit Ertapenem 1 gm/ Sodium (Chloride) 50 mls @ 100 mls/hr IVPB DAILY [facility] Last Admin: 05/18/19 10:40 Dose: 100 mls/hr Metoprolol Succinate (Toprol Xl -) 25 mg PO DAILY [facility] Last Admin: 08/22/19 10:44 Dose: 25 mg Mupirocin (Bactroban Ointment (For Decolonization) -) 1 applic NS BID [facility] Stop: 05/18/19 21:59 Last Admin: 05/18/19 10:47 Dose: 1 applic Prednisone (Deltasone -) 40 mg PO DAILY [facility] Last Admin: 05/18/19 10:44 Dose: 40 mg Ranitidine HCl (Zantac -) 150 mg PO BID [facility] Last Admin: 05/18/19 10:44 Dose: 150 mg ASSESSMENT AND PLAN: Acute on Chronic Hypoxic and Hypercapneic Respiratory Failure r/o Acute COPD Exacerbation Severe Restrictive Lung Disease UTI Morbid Obesity Pulmonary HTN LV Diastolic Dysfunction RANJIT/OHS Acute on Chronic Renal Failure - continue antibiotics per ID - prednisone taper - inhaled bronchodilators - taper Fio2 to keep Spo2 >85% - monitor urine output, creatinine - monitor lytes - DVT/GI prophylaxis - can monitor on floor critical care time spent in reviewing chart, evaluating patient and formulating plan 35 min
--- NOTE | 2019-05-18 12:48 | PN ---
Progress Note, Physician History of Present Illness: Pt seen and examined at bedside. He is awake and alert. He says that he feels much better. - Current Medication List Current Medications: Active Medications Albuterol/Ipratropium (Duoneb -) 1 amp NEB RQID [facility] Last Admin: 05/18/19 08:25 Dose: 1 amp Atorvastatin Calcium (Lipitor -) 20 mg PO HS [facility] Last Admin: 05/17/19 21:27 Dose: 20 mg Chlorhexidine Gluconate (Hibiclens For Decolonization -) 1 applic TP HS [facility] Last Admin: 05/17/19 21:28 Dose: 1 applic Clotrimazole (Lotrimin 1% Cream -) 1 applic TP BID [facility] Last Admin: 05/18/19 10:45 Dose: 1 applic Escitalopram Oxalate (Lexapro -) 10 mg PO DAILY [facility] Last Admin: 05/18/19 10:45 Dose: 10 mg Heparin Sodium (Porcine) (Heparin -) 5,000 unit SQ TID [facility] Last Admin: 05/18/19 06:59 Dose: 5,000 unit Ertapenem 1 gm/ Sodium (Chloride) 50 mls @ 100 mls/hr IVPB DAILY [facility] Last Admin: 05/18/19 10:40 Dose: 100 mls/hr Metoprolol Succinate (Toprol Xl -) 25 mg PO DAILY [facility] Last Admin: 05/18/19 10:44 Dose: 25 mg Mupirocin (Bactroban Ointment (For Decolonization) -) 1 applic NS BID [facility] Stop: 05/18/19 21:59 Last Admin: 05/18/19 10:47 Dose: 1 applic Polyethylene Glycol (Miralax (For Daily Use) -) 17 gm PO DAILY [facility] Prednisone (Deltasone -) 40 mg PO DAILY [facility] Last Admin: 05/18/19 10:44 Dose: 40 mg Ranitidine HCl (Zantac -) 150 mg PO BID [facility] Last Admin: 05/18/19 10:44 Dose: 150 mg - Objective Vital Signs: Vital Signs Temperature 98.0 F 05/18/19 10:00 Pulse Rate 74 05/18/19 10:00 Respiratory Rate 21 H 05/18/19 10:00 Blood Pressure 102/64 05/18/19 10:00 O2 Sat by Pulse Oximetry (%) 93 L 05/18/19 12:04 Constitutional: Yes: Calm Eyes: Yes: Conjunctiva Clear HENT: Yes: Atraumatic Neck: Yes: Supple Cardiovascular: Yes: S1, S2 Respiratory: Yes: On Nasal O2 Gastrointestinal: Yes: Soft, Abdomen, Obese Genitourinary: Yes: WNL Musculoskeletal: Yes: WNL Edema: Yes Edema: LLE: Trace, RLE: Trace Neurological: Yes: Oriented Psychiatric: Yes: Oriented Labs: CBC, BMP 05/18/19 05:40 05/18/19 05:40 INR, PTT INR 1.03 (0.83-1.09) 05/16/19 09:06 Problem List - Problems (1) FAITH (acute kidney injury) Code(s): N17.9 - ACUTE KIDNEY FAILURE, UNSPECIFIED (2) COPD (chronic obstructive pulmonary disease) Code(s): J44.9 - CHRONIC OBSTRUCTIVE PULMONARY DISEASE, UNSPECIFIED (3) HTN (hypertension) Code(s): I10 - ESSENTIAL (PRIMARY) HYPERTENSION Qualifiers: Hypertension type: essential hypertension Qualified Code(s): I10 - Essential (primary) hypertension (4) Hyperkalemia Code(s): E87.5 - HYPERKALEMIA (5) Acute respiratory failure with hypoxia and hypercarbia Code(s): J96.01 - ACUTE RESPIRATORY FAILURE WITH HYPOXIA; J96.02 - ACUTE RESPIRATORY FAILURE WITH HYPERCAPNIA (6) COPD exacerbation Code(s): J44.1 - CHRONIC OBSTRUCTIVE PULMONARY DISEASE W (ACUTE) EXACERBATION (7) Obesity hypoventilation syndrome Code(s): E66.2 - MORBID (SEVERE) OBESITY WITH ALVEOLAR HYPOVENTILATION (8) Morbid obesity Code(s): E66.01 - MORBID (SEVERE) OBESITY DUE TO EXCESS CALORIES Assessment/Plan Current Medications Generic Name Dose Route Start Last Admin Trade Name Freq PRN Reason Stop Dose Admin Albuterol/Ipratropium 1 amp 05/14/19 12:00 05/18/19 08:25 Duoneb - NEB 1 amp RQID MINDI Administration Atorvastatin Calcium 20 mg 05/17/19 22:00 05/17/19 21:27 Lipitor - PO 20 mg HS MINDI Administration Chlorhexidine Gluconate 1 applic 05/13/19 22:00 05/17/19 21:28 Hibiclens For Decolonization - TP 1 applic HS MINDI Administration Clotrimazole 1 applic 05/13/19 22:00 05/18/19 10:45 Lotrimin 1% Cream - TP 1 applic BID MINDI Administration Escitalopram Oxalate 10 mg 05/17/19 08:19 05/18/19 10:45 Lexapro - PO 10 mg DAILY MINDI Administration Heparin Sodium (Porcine) 5,000 unit 05/15/19 14:00 05/18/19 06:59 Heparin - SQ 5,000 unit TID MINDI Administration Ertapenem 1 gm/ Sodium 50 mls @ 100 mls/hr 05/16/19 14:00 05/18/19 10:40 Chloride IVPB 100 mls/hr DAILY MINDI Administration Metoprolol Succinate 25 mg 05/18/19 10:00 05/18/19 10:44 Toprol Xl - PO 25 mg DAILY MINDI Administration Mupirocin 1 applic 05/13/19 22:00 05/18/19 10:47 Bactroban Ointment (For Decolonization) - NS 05/18/19 21:59 1 applic BID MINDI Administration Polyethylene Glycol 17 gm 05/18/19 11:45 Miralax (For Daily Use) - PO DAILY [facility] Prednisone 40 mg 05/18/19 10:00 05/18/19 10:44 Deltasone - PO 40 mg DAILY MINDI Administration Ranitidine HCl 150 mg 05/16/19 22:00 05/18/19 10:44 Zantac - PO 150 mg BID MINDI Administration Impression 1. FAITH 2. hyperkalemia 3. obesity 4. respiratory failure 5. uti 6. pulm htn 7. chf Plan - renal function stable - volume status is improved - cont bipap - pt can follow as outpt - potassium is improved
--- NOTE | 2019-05-18 13:05 | PN ---
Progress Note, Physician History of Present Illness: Dyspnea and cough improved, remains on NC. - Current Medication List Current Medications: Active Medications Albuterol/Ipratropium (Duoneb -) 1 amp NEB RQID [facility] Last Admin: 05/18/19 08:25 Dose: 1 amp Atorvastatin Calcium (Lipitor -) 20 mg PO HS [facility] Last Admin: 05/17/19 21:27 Dose: 20 mg Chlorhexidine Gluconate (Hibiclens For Decolonization -) 1 applic TP HS [facility] Last Admin: 05/17/19 21:28 Dose: 1 applic Clotrimazole (Lotrimin 1% Cream -) 1 applic TP BID [facility] Last Admin: 05/18/19 10:45 Dose: 1 applic Escitalopram Oxalate (Lexapro -) 10 mg PO DAILY [facility] Last Admin: 05/18/19 10:45 Dose: 10 mg Heparin Sodium (Porcine) (Heparin -) 5,000 unit SQ TID [facility] Last Admin: 05/18/19 06:59 Dose: 5,000 unit Ertapenem 1 gm/ Sodium (Chloride) 50 mls @ 100 mls/hr IVPB DAILY [facility] Last Admin: 05/18/19 10:40 Dose: 100 mls/hr Metoprolol Succinate (Toprol Xl -) 25 mg PO DAILY [facility] Last Admin: 05/18/19 10:44 Dose: 25 mg Mupirocin (Bactroban Ointment (For Decolonization) -) 1 applic NS BID [facility] Stop: 05/18/19 21:59 Last Admin: 05/18/19 10:47 Dose: 1 applic Polyethylene Glycol (Miralax (For Daily Use) -) 17 gm PO DAILY [facility] Prednisone (Deltasone -) 40 mg PO DAILY [facility] Last Admin: 05/18/19 10:44 Dose: 40 mg Ranitidine HCl (Zantac -) 150 mg PO BID [facility] Last Admin: 05/18/19 10:44 Dose: 150 mg - Objective Vital Signs: Vital Signs Temperature 98.0 F 05/18/19 10:00 Pulse Rate 74 05/18/19 10:00 Respiratory Rate 21 H 05/18/19 10:00 Blood Pressure 102/64 05/18/19 10:00 O2 Sat by Pulse Oximetry (%) 93 L 05/18/19 12:04 Constitutional: Yes: No Distress, Calm Neck: Yes: Supple Cardiovascular: Yes: Regular Rate and Rhythm Respiratory: Yes: Regular, Diminished, On Nasal O2 Gastrointestinal: Yes: Normal Bowel Sounds, Soft, Abdomen, Obese Edema: No Labs: CBC, BMP 05/18/19 05:40 05/18/19 05:40 INR, PTT INR 1.03 (0.83-1.09) 05/16/19 09:06 - ....Imaging EKG: Report Reviewed (Tele: NSR) Problem List - Problems (1) FAITH (acute kidney injury) Code(s): N17.9 - ACUTE KIDNEY FAILURE, UNSPECIFIED (2) COPD exacerbation Code(s): J44.1 - CHRONIC OBSTRUCTIVE PULMONARY DISEASE W (ACUTE) EXACERBATION (3) HTN (hypertension) Code(s): I10 - ESSENTIAL (PRIMARY) HYPERTENSION Qualifiers: Hypertension type: essential hypertension Qualified Code(s): I10 - Essential (primary) hypertension (4) Hyperlipidemia Code(s): E78.5 - HYPERLIPIDEMIA, UNSPECIFIED Qualifiers: Hyperlipidemia type: pure hypercholesterolemia Qualified Code(s): E78.00 - Pure hypercholesterolemia, unspecified; E78.0 - Pure hypercholesterolemia (5) RANJIT (obstructive sleep apnea) Code(s): G47.33 - OBSTRUCTIVE SLEEP APNEA (ADULT) (PEDIATRIC) (6) Pneumonia Code(s): J18.9 - PNEUMONIA, UNSPECIFIED ORGANISM (7) Acute on chronic respiratory failure with hypoxia and hypercapnia Code(s): J96.21 - ACUTE AND CHRONIC RESPIRATORY FAILURE WITH HYPOXIA; J96.22 - ACUTE AND CHRONIC RESPIRATORY FAILURE WITH HYPERCAPNIA (8) Cor pulmonale Code(s): I27.81 - COR PULMONALE (CHRONIC) (9) Obesity hypoventilation syndrome Code(s): E66.2 - MORBID (SEVERE) OBESITY WITH ALVEOLAR HYPOVENTILATION (10) Pulmonary HTN Code(s): I27.20 - PULMONARY HYPERTENSION, UNSPECIFIED (11) Morbid obesity Code(s): E66.01 - MORBID (SEVERE) OBESITY DUE TO EXCESS CALORIES (12) Sleep apnea Code(s): G47.30 - SLEEP APNEA, UNSPECIFIED Qualifiers: Sleep apnea type: obstructive Qualified Code(s): G47.33 - Obstructive sleep apnea (adult) (pediatric) (13) Diastolic dysfunction Code(s): I51.9 - HEART DISEASE, UNSPECIFIED Assessment/Plan 1. Acute on chronic hypoxemic/hypercapneic respiratory failure, related to 2. Acute exacerbation of chronic obstructive pulmonary disease, possible pneumonia 3. Morbid obesity/hypoventilation syndrome and Severe Restrictive Lung Disease with 4. Severe pulmonary hypertension with cor pulmonale, clinical class II-III NYHA classification RV failure 5. Diastolic LV dysfunction with chronic class 0-I NYHA classification LV congestive heart failure, clinically compensated 6. Acute on chronic kidney disease with Hyperkalemia - resolved 7. Hyponatremia resolved 8. Tobacco abuse 9. UTI 10. Hyperlipidemia 11. Type 2 DM PLAN: 1. Resume Diovan 40 qd as renal fxn and K at baseline with uptitration as tolerated, d/c concomitant Aldactone 25 qd given h/o hyperkalemia 2. Continue Toprol XL 25 qd hemodynamics permitting and Lipitor 20 qd 3. Taper oral steroids with GI protection, O2 and Bronchodilators as needed, complete abx course as per the primary team 4. DVT prophylaxis
--- NOTE | 2019-05-18 13:24 | PN ---
Physical Exam: SUBJECTIVE: Patient seen and examined at the bedside. Was stable on BiPap overnight. Denied any acute complaints of fever, chills, cp, sob, abd pain, n/v/ c/d, dizziness, lightheadedness, headache. OBJECTIVE: Vital Signs Period Temp Pulse Resp BP Sys/Melgoza Pulse Ox Last 24 Hr 98.0 F-98.7 F 72-99 14-23 94-118/51-96 89-99 GENERAL: alert and oriented EYES: PERRLA, EOMI, sclera anicteric ENT: Moist mucus membranes NECK: No JVD noted LUNGS: Decreased breath sounds heard bilaterally due to large body habitus, no wheezes, no accessory muscle use HEART: RRR, no murmurs or rubs ABDOMEN: Morbidly obese, soft, nontender, BS present EXTREMITIES: 2+ pulses, large extremities, trace edema noted NEUROLOGICAL: CN II-XII intact, muscle strength intact bilaterally upper and lower extremities, no sensory deficits. Laboratory Results - last 24 hr 05/18/19 05/18/19 05:40 05:40 WBC 7.9 RBC 4.24 Hgb 11.8 Hct 38.3 MCV 90.3 MCH 27.7 MCHC 30.7 L RDW 18.5 H Plt Count 225 MPV 7.0 L Absolute Neuts (auto) 5.5 Neutrophils % 69.7 D Lymphocytes % 17.7 D Monocytes % 11.6 H D Eosinophils % 0.8 D Basophils % 0.2 Nucleated RBC % 0 Sodium 143 Potassium 4.6 Chloride 102 Carbon Dioxide 39 H Anion Gap 3 L BUN 26.2 H Creatinine 0.7 Est GFR (CKD-EPI)AfAm 123.13 Est GFR (CKD-EPI)NonAf 106.24 Random Glucose 85 Calcium 8.5 Total Bilirubin 0.3 AST 21 ALT 28 Alkaline Phosphatase 53 Total Protein 5.6 L Albumin 2.7 L Active Medications Generic Name Dose Route Start Last Admin Trade Name Freq PRN Reason Stop Dose Admin Albuterol/Ipratropium 1 amp 05/14/19 12:00 05/18/19 08:25 Duoneb - NEB 1 amp RQID MINDI Administration Atorvastatin Calcium 20 mg 05/17/19 22:00 05/17/19 21:27 Lipitor - PO 20 mg HS MINDI Administration Chlorhexidine Gluconate 1 applic 05/13/19 22:00 05/17/19 21:28 Hibiclens For Decolonization - TP 1 applic HS MINDI Administration Clotrimazole 1 applic 05/13/19 22:00 05/18/19 10:45 Lotrimin 1% Cream - TP 1 applic BID MINDI Administration Escitalopram Oxalate 10 mg 05/17/19 08:19 05/18/19 10:45 Lexapro - PO 10 mg DAILY MINDI Administration Heparin Sodium (Porcine) 5,000 unit 05/15/19 14:00 05/18/19 06:59 Heparin - SQ 5,000 unit TID MINDI Administration Ertapenem 1 gm/ Sodium 50 mls @ 100 mls/hr 05/16/19 14:00 05/18/19 10:40 Chloride IVPB 100 mls/hr DAILY MINDI Administration Metoprolol Succinate 25 mg 05/18/19 10:00 05/18/19 10:44 Toprol Xl - PO 25 mg DAILY MINDI Administration Mupirocin 1 applic 05/13/19 22:00 05/18/19 10:47 Bactroban Ointment (For Decolonization) - NS 05/18/19 21:59 1 applic BID MINDI Administration Polyethylene Glycol 17 gm 05/18/19 11:45 Miralax (For Daily Use) - PO DAILY MINDI Prednisone 40 mg 05/18/19 10:00 05/18/19 10:44 Deltasone - PO 40 mg DAILY MINDI Administration Ranitidine HCl 150 mg 05/16/19 22:00 05/18/19 10:44 Zantac - PO 150 mg BID MINDI Administration Valsartan 40 mg 05/19/19 10:00 Diovan - PO DAILY MINDI ASSESSMENT/PLAN: Satya Rosario is a 54 year old with a past medical history of COPD, OHS, RANJIT, HTN, CHF (last echo in March showing normal EF), GERD, MDD who is admitted to the ICU for acute on chronic hypercapneic hypoxic respiratory failure secondary to long-standing COPD, OHS, RANJIT, and non-compliance with home oxygen therapy and nightly CPAP. Acute on chronic hypercapneic hypoxic respiratory failure COPD OHS RANJIT HTN GERD NEUROLOGIC - alert and oriented - gabapentin 100mg tid CARDIOLOGY - last echo 04/14 showing normal EF, normal left ventricle function and size - hold beta phuong in acute COPD exacerbation - troponins negative - hold spironolactone with history of hyperkalemia - restart valsartan 40mg daily - metoprolol 25mg daily - Lipitor 20mg daily RESPIRATORY - on NC, satting well - BiPAP on at night for RANJIT - PFTs performed in March showing patient with severe restrictive disease and severe diffusion deficit - prednisone 40mg daily - CXR showing widened mediastinum - questionable PNA process RENAL - FAITH, today 0.7, baseline 0.8, resolved - avoid overhydration due to hx of CHF - potassium 4.6 today, improved, continue to monitor - TTKG 4.82, lower than expected for hyperkalemia, spironolactone not given for several days, possibility of hypoaldosteronism - renin levels pending - monitor urine output GASTROINTESTINAL - home ranitidine INFECTIOUS DISEASE - continue ertapenem - blood cxs gram positive cocci in clusters, likely contamination, stop vancomycin - urine cxs Ecoli - Legionella and strep urine antigens negative - sputum cxs negative - continue to monitor for signs of infection, WBC, fevers - Dr. Nielson consulted, recs appreciated HEMATOLOGY - no acute issues PSYCHIATRIC - continue home Lexapro 10mg F/E/N - no standing fluids - continue to monitor electrolytes and replete as necessary - full liquid diet, advance as tolerated LINES - R wrist inserted 05/15 PROPHYLAXIS - on Lovenox 40mg subq bid CODE - full code DISPO - stable for transfer to Med-surg floor CASE DISCUSSED WITH DR JOHN CAZARES DO - PGY-1 INTERNAL MEDICINE Visit type - Emergency Visit Emergency Visit: No - New Patient This patient is new to me today: No - Critical Care Critical Care patient: No
[2019-05-18] MEDS: POLYETHYLENE GLYCOL 3350 119 GM BTL PO SCH (14:24)
[2019-05-18] MEDS: ATORVASTATIN CA 20 MG TABLET (FP) PO SCH (21:13)
[2019-05-18] MEDS: CHLORHEXIDINE GLUCONATE 4% CLEANSER FOR DECOLONIZATION TP SCH (21:13)
[2019-05-19] MEDS: HEPARIN NA (PORCINE) 5,000 UNITS/ML 1ML VIAL SQ SCH ×3 (06:15→21:19)
[2019-05-19 06:32] LABS: HEMATOCRIT 39.6 % (35.4-49); HEMOGLOBIN 12.3 GM/dL (11.7-16.9); MCH 27.5 pg (25.7-33.7); MCHC 31.1 g/dl (32.0-35.9); MEAN CELL VOLUME 88.4 fl (80-96); MEAN PLT VOLUME 7.1 fl (7.5-11.1); PLATELET COUNT 242 K/MM3 (134-434); RBC 4.48 M/mm3 (4.00-5.60); RDW 18.6 % (11.9-15.9)
[2019-05-19] MEDS: ALBUTEROL SO4 2.5/IPRATROPIUM 0.5 INH SOL 3 ML VIAL.NEB. NEB SCH ×4 (07:45→20:39)
[2019-05-19 07:47] LABS: BLOOD UREA NITROGEN 18.8 mg/dL (7-18); CALCIUM 8.3 mg/dL (8.5-10.1); CREATININE 0.7 mg/dL (0.55-1.3); MAGNESIUM 2.4 mg/dL (1.8-2.4); PHOSPHOROUS 2.5 mg/dL (2.5-4.9); POTASSIUM 4.8 mmol/L (3.5-5.1)
--- NOTE | 2019-05-19 09:23 | PN ---
Progress Note, Physician History of Present Illness: Dyspnea and cough improved, remains on NC. - Current Medication List Current Medications: Active Medications Albuterol/Ipratropium (Duoneb -) 1 amp NEB RQID [facility] Last Admin: 05/19/19 07:45 Dose: 1 amp Atorvastatin Calcium (Lipitor -) 20 mg PO HS [facility] Last Admin: 05/18/19 21:13 Dose: 20 mg Chlorhexidine Gluconate (Hibiclens For Decolonization -) 1 applic TP HS [facility] Last Admin: 05/18/19 21:13 Dose: 1 applic Clotrimazole (Lotrimin 1% Cream -) 1 applic TP BID [facility] Last Admin: 05/18/19 21:13 Dose: 1 applic Escitalopram Oxalate (Lexapro -) 10 mg PO DAILY [facility] Last Admin: 05/18/19 10:45 Dose: 10 mg Heparin Sodium (Porcine) (Heparin -) 5,000 unit SQ TID [facility] Last Admin: 05/19/19 06:15 Dose: 5,000 unit Ertapenem 1 gm/ Sodium (Chloride) 50 mls @ 100 mls/hr IVPB DAILY [facility] Last Admin: 05/18/19 10:40 Dose: 100 mls/hr Metoprolol Succinate (Toprol Xl -) 25 mg PO DAILY [facility] Last Admin: 05/18/19 10:44 Dose: 25 mg Polyethylene Glycol (Miralax (For Daily Use) -) 17 gm PO DAILY [facility] Last Admin: 05/18/19 14:24 Dose: 17 grams Prednisone (Deltasone -) 40 mg PO DAILY [facility] Last Admin: 05/18/19 10:44 Dose: 40 mg Ranitidine HCl (Zantac -) 150 mg PO BID [facility] Last Admin: 05/18/19 21:13 Dose: 150 mg Valsartan (Diovan -) 40 mg PO DAILY [facility] - Objective Vital Signs: Vital Signs Temperature 98.0 F 05/18/19 10:00 Pulse Rate 72 05/19/19 06:00 Respiratory Rate 15 05/19/19 06:00 Blood Pressure 110/76 05/19/19 06:00 O2 Sat by Pulse Oximetry (%) 95 05/19/19 08:44 Constitutional: Yes: No Distress, Calm Neck: Yes: Supple Cardiovascular: Yes: Regular Rate and Rhythm Respiratory: Yes: Regular, Diminished, On Nasal O2 Gastrointestinal: Yes: Normal Bowel Sounds, Soft, Abdomen, Obese Edema: No Labs: CBC, BMP 05/19/19 05:30 05/19/19 05:30 INR, PTT INR 1.03 (0.83-1.09) 05/16/19 09:06 - ....Imaging EKG: Report Reviewed (Tele: NSR) Problem List - Problems (1) COPD exacerbation Code(s): J44.1 - CHRONIC OBSTRUCTIVE PULMONARY DISEASE W (ACUTE) EXACERBATION (2) HTN (hypertension) Code(s): I10 - ESSENTIAL (PRIMARY) HYPERTENSION Qualifiers: Hypertension type: essential hypertension Qualified Code(s): I10 - Essential (primary) hypertension (3) Hyperlipidemia Code(s): E78.5 - HYPERLIPIDEMIA, UNSPECIFIED Qualifiers: Hyperlipidemia type: pure hypercholesterolemia Qualified Code(s): E78.00 - Pure hypercholesterolemia, unspecified; E78.0 - Pure hypercholesterolemia (4) RANJIT (obstructive sleep apnea) Code(s): G47.33 - OBSTRUCTIVE SLEEP APNEA (ADULT) (PEDIATRIC) (5) Pneumonia Code(s): J18.9 - PNEUMONIA, UNSPECIFIED ORGANISM (6) Acute on chronic respiratory failure with hypoxia and hypercapnia Code(s): J96.21 - ACUTE AND CHRONIC RESPIRATORY FAILURE WITH HYPOXIA; J96.22 - ACUTE AND CHRONIC RESPIRATORY FAILURE WITH HYPERCAPNIA (7) Cor pulmonale Code(s): I27.81 - COR PULMONALE (CHRONIC) (8) Obesity hypoventilation syndrome Code(s): E66.2 - MORBID (SEVERE) OBESITY WITH ALVEOLAR HYPOVENTILATION (9) Pulmonary HTN Code(s): I27.20 - PULMONARY HYPERTENSION, UNSPECIFIED (10) Morbid obesity Code(s): E66.01 - MORBID (SEVERE) OBESITY DUE TO EXCESS CALORIES (11) Sleep apnea Code(s): G47.30 - SLEEP APNEA, UNSPECIFIED Qualifiers: Sleep apnea type: obstructive Qualified Code(s): G47.33 - Obstructive sleep apnea (adult) (pediatric) (12) Diastolic dysfunction Code(s): I51.9 - HEART DISEASE, UNSPECIFIED Assessment/Plan 1. Acute on chronic hypoxemic/hypercapneic respiratory failure, related to 2. Acute exacerbation of chronic obstructive pulmonary disease, possible pneumonia 3. Morbid obesity/hypoventilation syndrome and Severe Restrictive Lung Disease with 4. Severe pulmonary hypertension with cor pulmonale, clinical class II-III NYHA classification RV failure 5. Diastolic LV dysfunction with chronic class 0-I NYHA classification LV congestive heart failure, clinically compensated 6. Acute on chronic kidney disease with Hyperkalemia - resolved 7. Hyponatremia resolved 8. Tobacco abuse 9. UTI 10. Hyperlipidemia 11. Type 2 DM PLAN: 1. Continue Diovan 40 qd as renal fxn and K at baseline with uptitration as tolerated, d/c concomitant Aldactone 25 qd given h/o hyperkalemia 2. Continue Toprol XL 25 qd hemodynamics permitting and Lipitor 20 qd 3. Taper oral steroids with GI protection, O2 and Bronchodilators as needed, complete abx course as per the primary team 4. DVT prophylaxis
[2019-05-19] MEDS: ESCITALOPRAM OXALATE 10 MG TABLET (FP) PO SCH (09:47)
[2019-05-19] MEDS: RANITIDINE HCL 150 MG TABLET (FP) PO SCH ×2 (09:47→21:20)
[2019-05-19] MEDS: metoPROLOL SUCCINATE 25 MG TAB.SR.24H (FP) PO SCH (09:48)
[2019-05-19] MEDS: predniSONE 20 MG TABLET (UD) PO SCH (09:48)
--- NOTE | 2019-05-19 09:53 | PN ---
Progress Note (short form) - Note Progress Note: pt seen/ examined chart reviewed awake/ comfortable morbidly obese on n/c denies pain Vital Signs Temp 98.0 F 05/18/19 10:00 Pulse 72 05/19/19 06:00 Resp 15 05/19/19 06:00 BP 110/76 05/19/19 06:00 Pulse Ox 95 05/19/19 08:44 Intake & Output 05/18/19 05/18/19 05/19/19 11:59 23:59 11:59 Intake Total 1450 100 Output Total 1275 Balance 175 100 Weight 397 lb 3.2 oz Intake: IVPB 50 Oral 1400 100 Output: Urine 1275 Void 1275 Other: Voiding Method Urinal Urinal Urinal # Unmeasured Voids Void 3 1 Bowel Movement No Yes: huge soft orange brown No # Bowel Movements 1 Body Mass Index (BMI) 56.9 Weight Measurement [facility] Active Medications Albuterol/Ipratropium (Duoneb -) 1 amp NEB RQID [facility] Last Admin: 05/19/19 07:45 Dose: 1 amp Atorvastatin Calcium (Lipitor -) 20 mg PO HS [facility] Last Admin: 05/18/19 21:13 Dose: 20 mg Chlorhexidine Gluconate (Hibiclens For Decolonization -) 1 applic TP HS [facility] Last Admin: 05/18/19 21:13 Dose: 1 applic Clotrimazole (Lotrimin 1% Cream -) 1 applic TP BID [facility] Last Admin: 05/18/19 21:13 Dose: 1 applic Escitalopram Oxalate (Lexapro -) 10 mg PO DAILY [facility] Last Admin: 05/19/19 09:47 Dose: 10 mg Heparin Sodium (Porcine) (Heparin -) 5,000 unit SQ TID [facility] Last Admin: 05/19/19 06:15 Dose: 5,000 unit Ertapenem 1 gm/ Sodium (Chloride) 50 mls @ 100 mls/hr IVPB DAILY [facility] Last Admin: 05/18/19 10:40 Dose: 100 mls/hr Metoprolol Succinate (Toprol Xl -) 25 mg PO DAILY [facility] Last Admin: 05/19/19 09:48 Dose: 25 mg Polyethylene Glycol (Miralax (For Daily Use) -) 17 gm PO DAILY [facility] Last Admin: 05/18/19 14:24 Dose: 17 grams Prednisone (Deltasone -) 40 mg PO DAILY [facility] Last Admin: 05/19/19 09:48 Dose: 40 mg Ranitidine HCl (Zantac -) 150 mg PO BID [facility] Last Admin: 05/19/19 09:47 Dose: 150 mg Valsartan (Diovan -) 40 mg PO DAILY [facility] CBC, BMP 05/19/19 05:30 05/19/19 05:30 Microbiology 05/13/19 11:25 Blood Culture - Final Blood - Peripheral Venous NO GROWTH AFTER 5 DAYS INCUBATION Physical Exam. Morbidly Obese S1 S2 RRR Lungs decreased breath sounds Abd- soft , edema decreased neuro- alert/ awake PLAN Acute hypercapniec respiratory failure COPD exacerbation morbid obesity Sleep apnea diastolic CHF Pneumonia? -- on BIPAP at night -- ok to transfer to the floor -- off Aldactone -- physical therapy -- on iv antibiotics -- PT eval -- will follow -Discussed with icu resident also
--- NOTE | 2019-05-19 10:45 | PN ---
Progress Note (short form) - Note Progress Note: no complaints Vital Signs Period Temp Pulse Resp BP Sys/Melgoza Pulse Ox Last 24 Hr 98.1 F 72-83 14-18 106-122/68-89 93-97 cor-rrr lungs decreased bs at bases abd soft,nt ext trace edema CBC, BMP 05/19/19 05:30 05/19/19 05:30 Microbiology 05/13/19 11:25 Blood - Peripheral Venous Blood Culture - Final NO GROWTH AFTER 5 DAYS INCUBATION 05/15/19 09:45 Sputum - Endotrachea Suction/Ventilator Gram Stain - Final 05/15/19 09:45 Sputum - Endotrachea Suction/Ventilator Sputum Culture - Final NORMAL RESPIRATORY JERRY 05/13/19 11:40 Blood - Peripheral Venous Blood Culture - Final Staph Hominis Sub Sp Hominis 05/15/19 09:45 Urine For Antigen Detection Legionella Antigen - Final 05/15/19 09:45 Urine For Antigen Detection Streptococcus pneumoniae Antigen (M - Final 05/13/19 13:05 Urine - Urine - Catheterized Urine Culture - Final Escherichia Coli Esbl [employer] Representative a/p acute on chronic hypercapneic resp failure cannot r/o pneumonia COPD OSAS morbid obesity UTI- ecoli esbl i clinically improving day #6/7 antibiotics continue ertapenem -last dose in am blood culture isolate contaminant- no need for further vancomycin please call back if needed Problem List - Problems (1) Acute on chronic respiratory failure with hypoxia and hypercapnia Code(s): J96.21 - ACUTE AND CHRONIC RESPIRATORY FAILURE WITH HYPOXIA; J96.22 - ACUTE AND CHRONIC RESPIRATORY FAILURE WITH HYPERCAPNIA (2) Pneumonia Code(s): J18.9 - PNEUMONIA, UNSPECIFIED ORGANISM (3) COPD (chronic obstructive pulmonary disease) Code(s): J44.9 - CHRONIC OBSTRUCTIVE PULMONARY DISEASE, UNSPECIFIED (4) RANJIT (obstructive sleep apnea) Code(s): G47.33 - OBSTRUCTIVE SLEEP APNEA (ADULT) (PEDIATRIC) (5) Morbid obesity Code(s): E66.01 - MORBID (SEVERE) OBESITY DUE TO EXCESS CALORIES (6) Hyperkalemia Code(s): E87.5 - HYPERKALEMIA
[2019-05-19] MEDS: VALSARTAN 40 MG TABLET (FP) PO SCH (11:03)
[2019-05-19] MEDS: CLOTRIMAZOLE 1% CREAM 15 GM TUBE TP SCH ×2 (11:10→21:21)
[2019-05-19] MEDS: POLYETHYLENE GLYCOL 3350 119 GM BTL PO SCH (11:10)
--- NOTE | 2019-05-19 11:28 | PN ---
Teaching Attending Note Name of Resident: Tera Grimm ATTENDING PHYSICIAN STATEMENT I saw and evaluated the patient. I reviewed the resident's note and discussed the case with the resident. I agree with the resident's findings and plan as documented. SUBJECTIVE: Pt seen and examined in the ICU. No overnight events, used BiPAP. Denies shortness of breath or chest pain. No fevers or chills. OBJECTIVE: Vital Signs Period Temp Pulse Resp BP Sys/Melgoza Pulse Ox Last 24 Hr 98.1 F 72-83 14-18 106-122/68-89 93-97 Intake & Output 05/16/19 05/17/19 05/18/19 05/19/19 23:59 23:59 23:59 23:59 Intake Total 2460 1660 1450 100 Output Total 2200 1900 1275 Balance 260 -240 175 100 Weight 182.514 kg 180.076 kg 180.167 kg Gen: NAD at rest Heart: RRR Lung: decreased breath sounds at the bases Abd: soft, nontender, obese Ext: no edema CBC, BMP 05/19/19 05:30 05/19/19 05:30 Active Medications Albuterol/Ipratropium (Duoneb -) 1 amp NEB RQID [facility] Last Admin: 05/19/19 07:45 Dose: 1 amp Atorvastatin Calcium (Lipitor -) 20 mg PO HS [facility] Last Admin: 05/18/19 21:13 Dose: 20 mg Chlorhexidine Gluconate (Hibiclens For Decolonization -) 1 applic TP HS [facility] Last Admin: 05/18/19 21:13 Dose: 1 applic Clotrimazole (Lotrimin 1% Cream -) 1 applic TP BID [facility] Last Admin: 05/19/19 11:10 Dose: 1 applic Escitalopram Oxalate (Lexapro -) 10 mg PO DAILY [facility] Last Admin: 05/19/19 09:47 Dose: 10 mg Heparin Sodium (Porcine) (Heparin -) 5,000 unit SQ TID [facility] Last Admin: 05/19/19 06:15 Dose: 5,000 unit Ertapenem 1 gm/ Sodium (Chloride) 50 mls @ 100 mls/hr IVPB DAILY [facility] Last Admin: 05/18/19 10:40 Dose: 100 mls/hr Metoprolol Succinate (Toprol Xl -) 25 mg PO DAILY [facility] Last Admin: 05/19/19 09:48 Dose: 25 mg Polyethylene Glycol (Miralax (For Daily Use) -) 17 gm PO DAILY [facility] Last Admin: 05/19/19 11:10 Dose: Not Given Ranitidine HCl (Zantac -) 150 mg PO BID [facility] Last Admin: 05/19/19 09:47 Dose: 150 mg Valsartan (Diovan -) 40 mg PO DAILY [facility] Last Admin: 05/19/19 11:03 Dose: 40 mg ASSESSMENT AND PLAN: Acute on Chronic Hypoxic and Hypercapneic Respiratory Failure improving r/o Acute COPD Exacerbation Severe Restrictive Lung Disease UTI Morbid Obesity Pulmonary HTN LV Diastolic Dysfunction RANJIT/OHS Acute on Chronic Renal Failure - complete antibiotics per ID - can d/c prednisone - inhaled bronchodilators - taper Fio2 to keep Spo2 >85% - monitor urine output, creatinine - monitor lytes - DVT/GI prophylaxis - can monitor on floor - d/c planning
[2019-05-19] MEDS: ERTAPENEM SODIUM 1 GM in SODIUM CHLORIDE 50 ML IVPB SCH (12:12)
--- NOTE | 2019-05-19 14:26 | PN ---
Physical Exam: SUBJECTIVE: Patient seen and examined at the bedside. Patient tolerated BiPAP overnight and denies any problems with his breathing. Denied cp, sob, abd pain, n/v/c/d, headaches, dizziness, lightheadedness, fever, chills. OBJECTIVE: Vital Signs Period Temp Pulse Resp BP Sys/Melgoza Pulse Ox Last 24 Hr 98.1 F 71-80 14-20 103-122/66-89 93-97 GENERAL: alert and oriented EYES: PERRLA, EOMI, sclera anicteric ENT: Moist mucus membranes NECK: No JVD noted LUNGS: Decreased breath sounds heard bilaterally due to large body habitus, no wheezes, no accessory muscle use HEART: RRR, no murmurs or rubs ABDOMEN: Morbidly obese, soft, nontender, BS present EXTREMITIES: 2+ pulses, large extremities, trace edema noted NEUROLOGICAL: CN II-XII intact, muscle strength intact bilaterally upper and lower extremities, no sensory deficits. Laboratory Results - last 24 hr 05/19/19 05/19/19 05:30 05:30 WBC 9.0 RBC 4.48 Hgb 12.3 Hct 39.6 MCV 88.4 MCH 27.5 MCHC 31.1 L RDW 18.6 H Plt Count 242 MPV 7.1 L Sodium 141 Potassium 4.8 Chloride 102 Carbon Dioxide 36 H Anion Gap 3 L BUN 18.8 H Creatinine 0.7 Est GFR (CKD-EPI)AfAm 123.13 Est GFR (CKD-EPI)NonAf 106.24 Random Glucose 83 Calcium 8.3 L Phosphorus 2.5 Magnesium 2.4 Active Medications Generic Name Dose Route Start Last Admin Trade Name Italo PRN Reason Stop Dose Admin Albuterol/Ipratropium 1 amp 05/14/19 12:00 05/19/19 11:54 Duoneb - NEB 1 amp RQID MINDI Administration Atorvastatin Calcium 20 mg 05/17/19 22:00 05/18/19 21:13 Lipitor - PO 20 mg HS MINDI Administration Chlorhexidine Gluconate 1 applic 05/13/19 22:00 05/18/19 21:13 Hibiclens For Decolonization - TP 1 applic HS MINDI Administration Clotrimazole 1 applic 05/13/19 22:00 05/19/19 11:10 Lotrimin 1% Cream - TP 1 applic BID MINDI Administration Escitalopram Oxalate 10 mg 05/17/19 08:19 05/19/19 09:47 Lexapro - PO 10 mg DAILY [facility]I Administration Heparin Sodium (Porcine) 5,000 unit 05/15/19 14:00 05/19/19 13:51 Heparin - SQ 5,000 unit TID MINDI Administration Ertapenem 1 gm/ Sodium 50 mls @ 100 mls/hr 05/16/19 14:00 05/19/19 12:12 Chloride IVPB 100 mls/hr DAILY [facility]I Administration Metoprolol Succinate 25 mg 05/18/19 10:00 05/19/19 09:48 Toprol Xl - PO 25 mg DAILY [facility]I Administration Polyethylene Glycol 17 gm 05/18/19 11:45 05/19/19 11:10 Miralax (For Daily Use) - PO Not Given DAILY MINDI Ranitidine HCl 150 mg 05/16/19 22:00 05/19/19 09:47 Zantac - PO 150 mg BID [facility]INDI Administration Valsartan 40 mg 05/19/19 10:00 05/19/19 11:03 Diovan - PO 40 mg DAILY [facility]I Administration ASSESSMENT/PLAN: Satya Rosario is a 54 year old with a past medical history of COPD, OHS, RANIJT, HTN, CHF (last echo in March showing normal EF), GERD, MDD who is admitted to the ICU for acute on chronic hypercapneic hypoxic respiratory failure secondary to long-standing COPD, OHS, RANJIT, and non-compliance with home oxygen therapy and nightly CPAP. Acute on chronic hypercapneic hypoxic respiratory failure COPD OHS RANJIT HTN GERD NEUROLOGIC - alert and oriented - hold home gabapentin CARDIOLOGY - last echo 04/14 showing normal EF, normal left ventricle function and size - hold beta phuong in acute COPD exacerbation - troponins negative - hold spironolactone with history of hyperkalemia - valsartan 40mg daily - metoprolol 25mg daily - Lipitor 20mg daily RESPIRATORY - on NC, satting well - BiPAP on at night for RANJIT - PFTs performed in March showing patient with severe restrictive disease and severe diffusion deficit - steroids stopped - CXR showing widened mediastinum - questionable PNA process - strongly advised patient to continue using his CPAP at night RENAL - FAITH, today 0.7, baseline 0.8, resolved - avoid overhydration due to hx of CHF - potassium 4.8 today, improved, continue to monitor - TTKG 4.82, lower than expected for hyperkalemia, spironolactone not given for several days, possibility of hypoaldosteronism - renin levels pending - monitor urine output GASTROINTESTINAL - home ranitidine INFECTIOUS DISEASE - continue ertapenem, day 6, 1 more day of antibiotics, stop after last dose on 05/21 - blood cxs gram positive cocci in clusters, likely contamination, stop vancomycin - urine cxs Ecoli - Legionella and strep urine antigens negative - sputum cxs negative - continue to monitor for signs of infection, WBC, fevers - Dr. Nielson consulted, recs appreciated HEMATOLOGY - no acute issues PSYCHIATRIC - continue home Lexapro 10mg F/E/N - no standing fluids - continue to monitor electrolytes and replete as necessary - full liquid diet, advance as tolerated LINES - R wrist inserted 05/18 PROPHYLAXIS - on Lovenox 40mg subq bid CODE - full code DISPO - stable for transfer to Med-surg floor CASE DISCUSSED WITH DR JOHN CAZARES DO - PGY-1 INTERNAL MEDICINE Visit type - Emergency Visit Emergency Visit: No - New Patient This patient is new to me today: No - Critical Care Critical Care patient: No
[2019-05-19] MEDS ORDERED: SODIUM CHLORIDE NASAL SPRAY 44 ML BOTTLE NS PRN (16:53)
[2019-05-19] MEDS ORDERED: FLUTICASONE PROP 0.05% 16 GM NASAL SPRAY NS ONE (17:12)
[2019-05-19] MEDS: ATORVASTATIN CA 20 MG TABLET (FP) PO SCH (21:20)
[2019-05-19] MEDS: CHLORHEXIDINE GLUCONATE 4% CLEANSER FOR DECOLONIZATION TP SCH ×2 (21:21→21:29)
[2019-05-20] MEDS: HEPARIN NA (PORCINE) 5,000 UNITS/ML 1ML VIAL SQ SCH ×3 (05:49→21:12)
[2019-05-20 07:13] LABS: CALCIUM 8.6 mg/dL (8.5-10.1); CREATININE 0.7 mg/dL (0.55-1.3); MAGNESIUM 2.1 mg/dL (1.8-2.4); PHOSPHOROUS 2.9 mg/dL (2.5-4.9); POTASSIUM 4.6 mmol/L (3.5-5.1)
[2019-05-20] MEDS: ALBUTEROL SO4 2.5/IPRATROPIUM 0.5 INH SOL 3 ML VIAL.NEB. NEB SCH ×4 (08:00→21:11)
--- NOTE | 2019-05-20 08:07 | PN ---
Progress Note (short form) - Note Progress Note: Chief Complaint: Events noted, notes reviewed, extubated, denies any chest pain reports dyspnea but improved, reports cough, sinus rhythm noted, in no distress History of Present Illness: Seen and examined in the ICU. Events noted, notes reviewed, extubated, denies any chest pain reports dyspnea but improved, reports cough, sinus rhythm noted, in no distress - Current Medication List Current Medications Albuterol/Ipratropium (Duoneb -) 1 amp NEB RQID [facility] Last Admin: 05/19/19 20:39 Dose: 1 amp Atorvastatin Calcium (Lipitor -) 20 mg PO HS [facility] Last Admin: 05/19/19 21:20 Dose: 20 mg Chlorhexidine Gluconate (Hibiclens For Decolonization -) 1 applic TP HS [facility] Last Admin: 05/19/19 21:29 Dose: 1 applic Clotrimazole (Lotrimin 1% Cream -) 1 applic TP BID [facility] Last Admin: 05/19/19 21:21 Dose: 1 applic Escitalopram Oxalate (Lexapro -) 10 mg PO DAILY [facility] Last Admin: 05/19/19 09:47 Dose: 10 mg Fluticasone Propionate (Flonase -) 1 spray NS DAILY [facility] Heparin Sodium (Porcine) (Heparin -) 5,000 unit SQ TID [facility] Last Admin: 05/20/19 05:49 Dose: 5,000 unit Ertapenem 1 gm/ Sodium (Chloride) 50 mls @ 100 mls/hr IVPB DAILY [facility] Last Admin: 05/19/19 12:12 Dose: 100 mls/hr Metoprolol Succinate (Toprol Xl -) 25 mg PO DAILY [facility] Last Admin: 05/19/19 09:48 Dose: 25 mg Polyethylene Glycol (Miralax (For Daily Use) -) 17 gm PO DAILY [facility] Last Admin: 05/19/19 11:10 Dose: Not Given Ranitidine HCl (Zantac -) 150 mg PO BID [facility] Last Admin: 05/19/19 21:20 Dose: 150 mg Sodium Chloride ([place] Nasal [place] -) 2 spray NS BID PRN PRN Reason: NASAL CONGESTION Valsartan (Diovan -) 40 mg PO DAILY [facility] Last Admin: 05/19/19 11:03 Dose: 40 mg Review of Systems Constitutional: denies: Chills or Fever Cardiovascular: as noted above Respiratory: reports: Cough Gastrointestinal: denies: Nausea, Vomiting, Diarrhea, Constipation or Abdominal Pain Genitourinary: denies: Dysuria Musculoskeletal: denies: Joint Pain Neurological: denies: Dizziness or Headache - Objective Vital Signs: Last Vital Signs Temp Pulse Resp BP Pulse Ox 98.6 F 86 18 101/83 94 L 05/20/19 06:00 05/20/19 06:00 05/20/19 06:00 05/20/19 06:00 05/19/19 21:00 Intake & Output 05/17/19 05/18/19 05/19/19 05/20/19 23:59 23:59 23:59 23:59 Intake Total 1660 1450 1150 Output Total 1900 1275 1050 400 Balance -240 175 100 -400 Weight 397 lb 397 lb 3.2 oz 398 lb 7 oz 401 lb 8 oz Neck: Supple Negative JVD No Bruit Cardiovascular: S1 S2 Regular Rate and Rhythm Respiratory: Diminished Breath Sounds at the Bases Bilateral Scattered Rhonchi Gastrointestinal: Soft Benign Normal Bowel Sounds Ext: Edema Labs: CBC, BMP 05/19/19 05:30 05/20/19 05:25 Hepatic Panel Total Bilirubin 0.3 mg/dL (0.2-1) 05/18/19 05:40 AST 21 U/L (15-37) 05/18/19 05:40 ALT 28 U/L (13-61) 05/18/19 05:40 Alkaline Phosphatase 53 U/L (45-117) 05/18/19 05:40 Albumin 2.7 g/dl (3.4-5.0) L 05/18/19 05:40 Assessment/Plan ASSESSMENT: 1. Acute hypoxemic/hypercapneic respiratory failure post extubation, related to 2. Acute exacerbation of chronic obstructive pulmonary disease, possible pneumonia 3. Morbid obesity/hypoventilation syndrome with 4. Severe pulmonary hypertension with cor pulmonale, clinical class II-III NYHA classification RV failure 5. Diastolic LV dysfunction with chronic class 0-I NYHA classification LV congestive heart failure, clinically compensated 6. Chronic kidney disease with Hyperkalemia, acute exacerbation- resolved 7. Hyponatremia- resolved 8. Tobacco abuse PLAN: 1. As outlined in prior notes avoid Aldactone in view of recurrent Hyperkalemia 2. Continue Diovan with caution hemodynamics permitting and close monitoring of renal function 3. Continue Toprol XL hemodynamics permitting 4. Continue Bronchodilators as per the primary team 5. Antibiotics as per the primary team 6. May transfer out of ICU Camden Henson M.D.
[2019-05-20] MEDS: ERTAPENEM SODIUM 1 GM in SODIUM CHLORIDE 50 ML IVPB SCH (09:16)
[2019-05-20] MEDS: VALSARTAN 40 MG TABLET (FP) PO SCH (09:17)
[2019-05-20] MEDS: metoPROLOL SUCCINATE 25 MG TAB.SR.24H (FP) PO SCH (09:17)
[2019-05-20] MEDS: RANITIDINE HCL 150 MG TABLET (FP) PO SCH ×2 (09:18→21:13)
[2019-05-20] MEDS: ESCITALOPRAM OXALATE 10 MG TABLET (FP) PO SCH (09:18)
[2019-05-20] MEDS: POLYETHYLENE GLYCOL 3350 119 GM BTL PO SCH (09:21)
[2019-05-20] MEDS: CLOTRIMAZOLE 1% CREAM 15 GM TUBE TP SCH ×2 (09:22→21:13)
[2019-05-20] MEDS: FLUTICASONE PROP 0.05% 16 GM NASAL SPRAY NS SCH (09:54)
--- NOTE | 2019-05-20 10:59 | PN ---
Progress Note (short form) - Note Progress Note: PULMONARY/CRITICAL CARE PROGRESS NOTE: SUBJECTIVE: Pt seen and examined in the ICU. No events, used BiPAP. Awaiting floor bed. OBJECTIVE: Current Medications Albuterol/Ipratropium (Duoneb -) 1 amp NEB RQID [facility] Last Admin: 05/20/19 08:00 Dose: 1 amp Atorvastatin Calcium (Lipitor -) 20 mg PO HS [facility] Last Admin: 05/19/19 21:20 Dose: 20 mg Chlorhexidine Gluconate (Hibiclens For Decolonization -) 1 applic TP HS [facility] Last Admin: 05/19/19 21:29 Dose: 1 applic Clotrimazole (Lotrimin 1% Cream -) 1 applic TP BID [facility] Last Admin: 05/20/19 09:22 Dose: 1 applic Escitalopram Oxalate (Lexapro -) 10 mg PO DAILY [facility] Last Admin: 05/20/19 09:18 Dose: 10 mg Fluticasone Propionate (Flonase -) 1 spray NS DAILY [facility] Last Admin: 05/20/19 09:54 Dose: 1 spray Heparin Sodium (Porcine) (Heparin -) 5,000 unit SQ TID [facility] Last Admin: 05/20/19 05:49 Dose: 5,000 unit Ertapenem 1 gm/ Sodium (Chloride) 50 mls @ 100 mls/hr IVPB DAILY [facility] Last Admin: 05/20/19 09:16 Dose: 100 mls/hr Metoprolol Succinate (Toprol Xl -) 25 mg PO DAILY [facility] Last Admin: 05/20/19 09:17 Dose: 25 mg Polyethylene Glycol (Miralax (For Daily Use) -) 17 gm PO DAILY [facility] Last Admin: 05/20/19 09:21 Dose: Not Given Ranitidine HCl (Zantac -) 150 mg PO BID [facility] Last Admin: 05/20/19 09:18 Dose: 150 mg Sodium Chloride ([place] Nasal [place] -) 2 spray NS BID PRN PRN Reason: NASAL CONGESTION Last Admin: 05/20/19 09:54 Dose: 2 sprays Valsartan (Diovan -) 40 mg PO DAILY [facility] Last Admin: 05/20/19 09:17 Dose: 40 mg Vital Signs Temp 98.6 F 05/20/19 06:00 Pulse 86 05/20/19 06:00 Resp 18 05/20/19 06:00 BP 101/83 08/24/19 06:00 Pulse Ox 95 05/20/19 08:44 Intake & Output 05/19/19 05/20/19 05/20/19 18:59 06:59 18:59 Intake Total 650 500 Output Total 350 1100 Balance 300 -600 Weight 180.728 kg 182.117 kg Intake: IVPB 50 Oral 600 500 Output: Urine 350 1100 Void 350 1100 Other: Voiding Method Urinal Urinal Urinal # Unmeasured Voids Void 2 Bowel Movement No Weight Measurement Method Built in Bedscale Built in Bedscale Gen: NAD at rest Heart: RRR Lung: decreased breath sounds at the bases Abd: soft, nontender, obese Ext: no edema CBC, BMP 05/19/19 05:30 05/20/19 05:25 ASSESSMENT AND PLAN: Acute on Chronic Hypoxic and Hypercapneic Respiratory Failure improving r/o Acute COPD Exacerbation Severe Restrictive Lung Disease UTI Morbid Obesity Pulmonary HTN LV Diastolic Dysfunction RANJIT/OHS Acute on Chronic Renal Failure - complete antibiotics per ID - inhaled bronchodilators - taper Fio2 to keep Spo2 >85% - needs nocturnal BiPAP - monitor urine output, creatinine - monitor lytes - DVT/GI prophylaxis - can monitor on floor - d/c planning - there was a problem at [facility] where he was not set up with BiPAP while he was there. He needs BiPAP qHS. His baseline Oxygen requirement is 4L continuously. Tera Morales Pulm/Critical Care [employer]
--- NOTE | 2019-05-20 13:10 | PN ---
Progress Note (short form) - Note Progress Note: pt seen/ examined awake/ comfortable morbidly obese on n/c uses bipap denies pain. Vital Signs Temp 98.5 F 05/20/19 10:00 Pulse 85 05/20/19 10:00 Resp 18 05/20/19 10:00 BP 116/64 05/20/19 10:00 Pulse Ox 94 L 05/20/19 12:31 Intake & Output 05/19/19 05/20/19 05/20/19 23:59 11:59 23:59 Intake Total 1050 Output Total 1050 400 Balance 0 -400 Weight 398 lb 7 oz 401 lb 8 oz Intake: IVPB 50 Oral 1000 Output: Urine 1050 400 Void 1050 400 Other: Voiding Method Urinal Urinal # Unmeasured Voids Void 2 Bowel Movement No Weight Measurement Method Built in Bedscale Built in Bedscale Active Medications Albuterol/Ipratropium (Duoneb -) 1 amp NEB RQID [facility] Last Admin: 05/19/19 07:45 Dose: 1 amp Atorvastatin Calcium (Lipitor -) 20 mg PO HS [facility] Last Admin: 05/18/19 21:13 Dose: 20 mg Chlorhexidine Gluconate (Hibiclens For Decolonization -) 1 applic TP HS [facility] Last Admin: 05/18/19 21:13 Dose: 1 applic Clotrimazole (Lotrimin 1% Cream -) 1 applic TP BID [facility] Last Admin: 05/18/19 21:13 Dose: 1 applic Escitalopram Oxalate (Lexapro -) 10 mg PO DAILY [facility] Last Admin: 05/19/19 09:47 Dose: 10 mg Heparin Sodium (Porcine) (Heparin -) 5,000 unit SQ TID [facility] Last Admin: 05/19/19 06:15 Dose: 5,000 unit Ertapenem 1 gm/ Sodium (Chloride) 50 mls @ 100 mls/hr IVPB DAILY [facility] Last Admin: 05/18/19 10:40 Dose: 100 mls/hr Metoprolol Succinate (Toprol Xl -) 25 mg PO DAILY [facility] Last Admin: 05/19/19 09:48 Dose: 25 mg Polyethylene Glycol (Miralax (For Daily Use) -) 17 gm PO DAILY [facility] Last Admin: 05/18/19 14:24 Dose: 17 grams Prednisone (Deltasone -) 40 mg PO DAILY [facility] Last Admin: 05/19/19 09:48 Dose: 40 mg Ranitidine HCl (Zantac -) 150 mg PO BID [facility] Last Admin: 05/19/19 09:47 Dose: 150 mg Valsartan (Diovan -) 40 mg PO DAILY [facility] CBC, BMP 05/19/19 05:30 05/20/19 05:25 Microbiology 05/13/19 11:25 Blood Culture - Final Blood - Peripheral Venous NO GROWTH AFTER 5 DAYS INCUBATION Physical Exam. Morbidly Obese S1 S2 RRR Lungs decreased breath sounds Abd- soft , edema decreased neuro- alert/ awake PLAN Acute hypercapniec respiratory failure COPD exacerbation morbid obesity Sleep apnea diastolic CHF Pneumonia? -- on BIPAP at night -- ok to transfer to the floor -- off Aldactone -- physical therapy -- on iv antibiotics -- PT eval -- will follow -Discussed with RN also
[2019-05-20] MEDS: CHLORHEXIDINE GLUCONATE 4% CLEANSER FOR DECOLONIZATION TP SCH (21:12)
[2019-05-20] MEDS: ATORVASTATIN CA 20 MG TABLET (FP) PO SCH (21:13)
--- NOTE | 2019-05-21 06:16 | PN ---
Progress Note (short form) - Note Progress Note: PULMONARY/CRITICAL CARE PROGRESS NOTE: SUBJECTIVE: Pt seen and examined in the ICU. Completed abx On baseline Oxygen and BiPAP Awaiting floor bed. OBJECTIVE: Current Medications Albuterol/Ipratropium (Duoneb -) 1 amp NEB RQID [facility] Last Admin: 05/20/19 21:11 Dose: 1 amp Atorvastatin Calcium (Lipitor -) 20 mg PO HS [facility] Last Admin: 05/20/19 21:13 Dose: 20 mg Chlorhexidine Gluconate (Hibiclens For Decolonization -) 1 applic TP HS [facility] Last Admin: 05/20/19 21:12 Dose: 1 applic Clotrimazole (Lotrimin 1% Cream -) 1 applic TP BID [facility] Last Admin: 05/20/19 21:13 Dose: 1 applic Escitalopram Oxalate (Lexapro -) 10 mg PO DAILY [facility] Last Admin: 05/20/19 09:18 Dose: 10 mg Fluticasone Propionate (Flonase -) 1 spray NS DAILY [facility] Last Admin: 05/20/19 09:54 Dose: 1 spray Heparin Sodium (Porcine) (Heparin -) 5,000 unit SQ TID [facility] Last Admin: 05/20/19 21:12 Dose: 5,000 unit Ertapenem 1 gm/ Sodium (Chloride) 50 mls @ 100 mls/hr IVPB DAILY [facility] Last Admin: 05/20/19 09:16 Dose: 100 mls/hr Metoprolol Succinate (Toprol Xl -) 25 mg PO DAILY [facility] Last Admin: 05/20/19 09:17 Dose: 25 mg Polyethylene Glycol (Miralax (For Daily Use) -) 17 gm PO DAILY [facility] Last Admin: 05/20/19 09:21 Dose: Not Given Ranitidine HCl (Zantac -) 150 mg PO BID [facility] Last Admin: 05/20/19 21:13 Dose: 150 mg Sodium Chloride ([place] Nasal [place] -) 2 spray NS BID PRN PRN Reason: NASAL CONGESTION Last Admin: 05/20/19 09:54 Dose: 2 sprays Valsartan (Diovan -) 40 mg PO DAILY [facility] Last Admin: 05/20/19 09:17 Dose: 40 mg Vital Signs Temp 98.0 F 05/20/19 18:00 Pulse 81 05/20/19 18:00 Resp 20 05/20/19 18:00 BP 126/70 05/20/19 18:00 Pulse Ox 96 05/21/19 03:37 Intake & Output 05/20/19 05/20/19 05/21/19 06:59 18:59 06:59 Intake Total 500 650 Output Total 1100 200 Balance -600 450 Weight 182.117 kg Intake: IVPB 50 Oral 500 600 Output: Urine 1100 200 Void 1100 200 Other: Voiding Method Urinal Urinal # Unmeasured Voids Void 3 Bowel Movement No Weight Measurement Method [facility] Gen: NAD at rest Heart: RRR Lung: diminished Abd: soft, nontender, obese Ext: no edema CBC, BMP 05/19/19 05:30 05/20/19 05:25 ASSESSMENT AND PLAN: Acute on Chronic Hypoxic and Hypercapneic Respiratory Failure improving r/o Acute COPD Exacerbation Severe Restrictive Lung Disease UTI Morbid Obesity Pulmonary HTN LV Diastolic Dysfunction RANJIT/OHS Acute on Chronic Renal Failure - inhaled bronchodilators - taper Fio2 to keep Spo2 >85% - nocturnal BiPAP - monitor urine output, creatinine - monitor lytes - DVT/GI prophylaxis - can monitor on floor or d/c back to sub-acute - d/c planning - there was a problem at [facility] where he was not set up with BiPAP while he was there. He needs BiPAP qHS. His baseline Oxygen requirement is 4L continuously. Tera Morales Pulm/Critical Care [employer]
[2019-05-21] MEDS: HEPARIN NA (PORCINE) 5,000 UNITS/ML 1ML VIAL SQ SCH ×3 (07:06→22:29)
--- NOTE | 2019-05-21 08:03 | PN ---
Progress Note (short form) - Note Progress Note: Chief Complaint: Events noted, notes reviewed, remains on CPAP, denies any chest pain reports dyspnea but improved, sinus rhythm noted, in no distress History of Present Illness: Seen and examined in the ICU. Events noted, notes reviewed, remains on CPAP, denies any chest pain reports dyspnea but improved, sinus rhythm noted, in no distress - Current Medication List Current Medications Albuterol/Ipratropium (Duoneb -) 1 amp NEB RQID [facility] Last Admin: 05/20/19 21:11 Dose: 1 amp Atorvastatin Calcium (Lipitor -) 20 mg PO HS [facility] Last Admin: 05/20/19 21:13 Dose: 20 mg Chlorhexidine Gluconate (Hibiclens For Decolonization -) 1 applic TP HS [facility] Last Admin: 05/20/19 21:12 Dose: 1 applic Clotrimazole (Lotrimin 1% Cream -) 1 applic TP BID [facility] Last Admin: 05/20/19 21:13 Dose: 1 applic Escitalopram Oxalate (Lexapro -) 10 mg PO DAILY [facility] Last Admin: 05/20/19 09:18 Dose: 10 mg Fluticasone Propionate (Flonase -) 1 spray NS DAILY [facility] Last Admin: 05/20/19 09:54 Dose: 1 spray Heparin Sodium (Porcine) (Heparin -) 5,000 unit SQ TID [facility] Last Admin: 05/21/19 07:06 Dose: 5,000 unit Ertapenem 1 gm/ Sodium (Chloride) 50 mls @ 100 mls/hr IVPB DAILY [facility] Last Admin: 05/20/19 09:16 Dose: 100 mls/hr Metoprolol Succinate (Toprol Xl -) 25 mg PO DAILY [facility] Last Admin: 05/20/19 09:17 Dose: 25 mg Polyethylene Glycol (Miralax (For Daily Use) -) 17 gm PO DAILY [facility] Last Admin: 05/20/19 09:21 Dose: Not Given Ranitidine HCl (Zantac -) 150 mg PO BID [facility] Last Admin: 05/20/19 21:13 Dose: 150 mg Sodium Chloride ([place] Nasal [place] -) 2 spray NS BID PRN PRN Reason: NASAL CONGESTION Last Admin: 05/20/19 09:54 Dose: 2 sprays Valsartan (Diovan -) 40 mg PO DAILY [facility] Last Admin: 05/20/19 09:17 Dose: 40 mg Review of Systems Constitutional: denies: Chills or Fever Cardiovascular: as noted above Respiratory: reports: Cough Gastrointestinal: denies: Nausea, Vomiting, Diarrhea, Constipation or Abdominal Pain Genitourinary: denies: Dysuria Musculoskeletal: denies: Joint Pain Neurological: denies: Dizziness or Headache - Objective Vital Signs: Last Vital Signs Temp Pulse Resp BP Pulse Ox 98.0 F 81 20 126/70 95 05/20/19 18:00 05/20/19 18:00 05/20/19 18:00 05/20/19 18:00 05/21/19 06:30 Intake & Output 05/18/19 05/19/19 05/20/19 05/21/19 23:59 23:59 23:59 23:59 Intake Total 1450 1150 650 Output Total 1275 1050 600 Balance 175 100 50 Weight 397 lb 3.2 oz 398 lb 7 oz 401 lb 8 oz Neck: Supple Negative JVD No Bruit Cardiovascular: S1 S2 Regular Rate and Rhythm Respiratory: Diminished Breath Sounds at the Bases Bilateral Scattered Rhonchi Gastrointestinal: Soft Benign Normal Bowel Sounds Ext: Edema Labs: CBC, BMP 05/19/19 05:30 05/20/19 05:25 Assessment/Plan ASSESSMENT: 1. Acute hypoxemic/hypercapneic respiratory failure post extubation, related to 2. Acute exacerbation of chronic obstructive pulmonary disease, possible pneumonia 3. Morbid obesity/hypoventilation syndrome with 4. Severe pulmonary hypertension with cor pulmonale, clinical class II-III NYHA classification RV failure 5. Diastolic LV dysfunction with chronic class 0-I NYHA classification LV congestive heart failure, clinically compensated 6. Chronic kidney disease with Hyperkalemia, acute exacerbation- resolved 7. Hyponatremia- resolved 8. Tobacco abuse PLAN: 1. As outlined in prior notes avoid Aldactone in view of recurrent Hyperkalemia 2. Continue Diovan with caution hemodynamics permitting and close monitoring of renal function 3. Continue Toprol XL hemodynamics permitting 4. Continue Bronchodilators as per the primary team 5. Antibiotics as per the primary team 6. May transfer out of ICU Camden Henson M.D.
[2019-05-21] MEDS: ALBUTEROL SO4 2.5/IPRATROPIUM 0.5 INH SOL 3 ML VIAL.NEB. NEB SCH ×4 (08:30→20:17)
[2019-05-21] MEDS: ERTAPENEM SODIUM 1 GM in SODIUM CHLORIDE 50 ML IVPB SCH (11:07)
[2019-05-21] MEDS: metoPROLOL SUCCINATE 25 MG TAB.SR.24H (FP) PO SCH (11:09)
[2019-05-21] MEDS: RANITIDINE HCL 150 MG TABLET (FP) PO SCH ×2 (11:09→22:29)
[2019-05-21] MEDS: VALSARTAN 40 MG TABLET (FP) PO SCH (11:09)
[2019-05-21] MEDS: ESCITALOPRAM OXALATE 10 MG TABLET (FP) PO SCH (11:09)
[2019-05-21] MEDS: FLUTICASONE PROP 0.05% 16 GM NASAL SPRAY NS SCH (11:11)
[2019-05-21] MEDS: CLOTRIMAZOLE 1% CREAM 15 GM TUBE TP SCH ×2 (11:11→22:30)
--- NOTE | 2019-05-21 11:50 | PN ---
Progress Note (short form) - Note Progress Note: pt seen/ examined awake/ comfortable morbidly obese on n/c uses bipap denies pain. overall feels better afebrile Vital Signs Temp 97.9 F 05/21/19 06:00 Pulse 76 05/21/19 08:00 Resp 18 05/21/19 09:00 BP 113/69 05/21/19 08:00 Pulse Ox 94 L 05/21/19 09:00 Intake & Output 05/20/19 05/20/19 05/21/19 11:59 23:59 11:59 Intake Total 650 Output Total 400 500 500 Balance -400 150 -500 Weight 401 lb 8 oz 402 lb 8 oz Intake: IVPB 50 Oral 600 Output: Urine 400 500 500 Void 400 500 500 Other: Voiding Method Urinal Urinal Urinal # Unmeasured Voids Void 1 1 Bowel Movement No No Weight Measurement Method Built in Bedscale Built in Bedscale Active Medications Albuterol/Ipratropium (Duoneb -) 1 amp NEB RQID [facility] Last Admin: 05/19/19 07:45 Dose: 1 amp Atorvastatin Calcium (Lipitor -) 20 mg PO HS [facility] Last Admin: 05/18/19 21:13 Dose: 20 mg Chlorhexidine Gluconate (Hibiclens For Decolonization -) 1 applic TP HS [facility] Last Admin: 05/18/19 21:13 Dose: 1 applic Clotrimazole (Lotrimin 1% Cream -) 1 applic TP BID [facility] Last Admin: 05/18/19 21:13 Dose: 1 applic Escitalopram Oxalate (Lexapro -) 10 mg PO DAILY [facility] Last Admin: 05/19/19 09:47 Dose: 10 mg Heparin Sodium (Porcine) (Heparin -) 5,000 unit SQ TID [facility] Last Admin: 05/19/19 06:15 Dose: 5,000 unit Ertapenem 1 gm/ Sodium (Chloride) 50 mls @ 100 mls/hr IVPB DAILY [facility] Last Admin: 05/18/19 10:40 Dose: 100 mls/hr Metoprolol Succinate (Toprol Xl -) 25 mg PO DAILY [facility] Last Admin: 05/19/19 09:48 Dose: 25 mg Polyethylene Glycol (Miralax (For Daily Use) -) 17 gm PO DAILY [facility] Last Admin: 05/18/19 14:24 Dose: 17 grams Prednisone (Deltasone -) 40 mg PO DAILY [facility] Last Admin: 05/19/19 09:48 Dose: 40 mg Ranitidine HCl (Zantac -) 150 mg PO BID [facility] Last Admin: 05/19/19 09:47 Dose: 150 mg Valsartan (Diovan -) 40 mg PO DAILY [facility] CBC, BMP 05/19/19 05:30 05/20/19 05:25 Physical Exam. Morbidly Obese S1 S2 RRR Lungs decreased breath sounds Abd- soft , edema decreased neuro- alert/ awake PLAN Acute hypercapniec respiratory failure COPD exacerbation morbid obesity Sleep apnea diastolic CHF Pneumonia? -- on BIPAP at night -- ok to transfer to the floor---awaiting a bed -- off Aldactone -- physical therapy -- on iv antibiotics -- PT eval -- will follow -discharge planning -If stable and despite discharge tomorrow
[2019-05-21] MEDS: POLYETHYLENE GLYCOL 3350 119 GM BTL PO SCH (13:21)
[2019-05-21] MEDS: ATORVASTATIN CA 20 MG TABLET (FP) PO SCH (22:29)
[2019-05-21] MEDS: CHLORHEXIDINE GLUCONATE 4% CLEANSER FOR DECOLONIZATION TP SCH (22:29)
[2019-05-22] MEDS: HEPARIN NA (PORCINE) 5,000 UNITS/ML 1ML VIAL SQ SCH (05:34)
[2019-05-22 06:18] VITALS: PULSE 91
[2019-05-22] MEDS: ALBUTEROL SO4 2.5/IPRATROPIUM 0.5 INH SOL 3 ML VIAL.NEB. NEB SCH ×2 (07:30→11:30)
--- NOTE | 2019-05-22 09:46 | DS ---
Physical Examination Vital Signs: Vital Signs Temperature 97.1 F L 05/22/19 05:38 Pulse Rate 91 H 05/21/19 23:00 Respiratory Rate 20 05/22/19 09:00 Blood Pressure 103/68 05/22/19 08:00 O2 Sat by Pulse Oximetry (%) 91 L 05/22/19 09:00 Findings/Remarks: awake/comfortable no new issues Constitutional: Yes: No Distress, Calm Eyes: Yes: Conjunctiva Clear Neck: Yes: Supple Cardiovascular: Yes: Regular Rate and Rhythm Respiratory: Yes: Diminished Gastrointestinal: Yes: Soft, Abdomen, Obese Edema: LLE: Trace, RLE: Trace Neurological: Yes: Alert Labs: CBC, BMP 05/19/19 05:30 05/20/19 05:25 Discharge Summary Reason For Visit: ACUTE RESP FAILURE W/HYPOXIA & HYPERCAPNIA Current Active Problems FAITH (acute kidney injury) (Acute) COPD (chronic obstructive pulmonary disease) (Acute) COPD exacerbation (Acute) GERD (gastroesophageal reflux disease) (Acute) HTN (hypertension) (Acute) Hyperkalemia (Acute) Hyperlipidemia (Acute) intermediate resident (Acute) RANJIT (obstructive sleep apnea) (Acute) Pneumonia (Acute) Hospital Course: Much better Admitted for Acute on Chronic Hypoxic and Hypercapneic Respiratory Failure COPD Exacerbation Severe Restrictive Lung Disease UTI Morbid Obesity Pulmonary HTN LV Diastolic Dysfunction Acute on Chronic Renal Failure-- Resolved Stable d/c back to intermediate Bipap as directed meds reconcilled off abx discussed with nursing staff also as well as i/d pt also in agreement Condition: Improved - Instructions Disposition: [facility] - Home Medications Comprehensive Discharge Medication List: Ambulatory Orders Acetaminophen 500 mg PO Q6H PRN 04/04/19 Albuterol 2.5/Ipratropium 0.5 [Duoneb -] 1 amp NEB PRN PRN 04/04/19 Calcium Carbonate [Tums] 200 mg PO BID PRN 04/04/19 Enoxaparin [Lovenox -] 40 mg SQ DAILY 04/04/19 Ergocalciferol [Vitamin D2] 50,000 unit PO WEEKLY 04/04/19 Escitalopram Oxalate [Lexapro -] 10 mg PO DAILY 04/04/19 Gabapentin [Neurontin] 100 mg PO TID 04/04/19 Liraglutide [Victoza -] 0.6 mg SQ DAILY 04/04/19 Mag Hydrox/Al Hydrox/Simeth [Mylanta Oral Suspension -] 15 ml PO TID PRN Magnesium Hydroxide [Milk of Magnesia] 30 ml PO DAILY PRN 04/04/19 Metoprolol Succinate 25 mg PO DAILY 04/04/19 Ranitidine [Zantac -] 150 mg PO BID 04/04/19 Spironolactone [Aldactone] 25 mg PO DAILY 04/04/19 Telmisartan [Micardis] 80 mg PO DAILY 04/04/19 Vit C/Dietary Supplement No.18 500 mg PO DAILY 05/13/19 Zinc Oxide 20% Topical Oint 1 applic TD DAILY 05/13/19 Atorvastatin Ca [Lipitor] 20 mg PO HS tablet 05/22/19 Chlorhexidine Gluconate [Hibiclens For Decolonization -] 1 applic TP HS bottle 05/22/19 Clotrimazole [Lotrimin -] 1 applic TP BID tube 05/22/19 Polyethylene Glycol 3350 [Miralax 119 gm Btl -] 17 gm PO DAILY bottle 05/22/19 Sodium Chloride Nasal [place] [[place] Nasal [place] -] 2 spray NS BID PRN spray 05/22/19 Bipap at night time daily and PRn
[2019-05-22] MEDS: ESCITALOPRAM OXALATE 10 MG TABLET (FP) PO SCH (09:53)
[2019-05-22] MEDS: RANITIDINE HCL 150 MG TABLET (FP) PO SCH (09:53)
[2019-05-22] MEDS: VALSARTAN 40 MG TABLET (FP) PO SCH (09:53)
[2019-05-22] MEDS: metoPROLOL SUCCINATE 25 MG TAB.SR.24H (FP) PO SCH (09:53)
[2019-05-22] MEDS: ERTAPENEM SODIUM 1 GM in SODIUM CHLORIDE 50 ML IVPB SCH (09:56)
[2019-05-22] MEDS: POLYETHYLENE GLYCOL 3350 119 GM BTL PO SCH (09:58)
[2019-05-22] MEDS: CLOTRIMAZOLE 1% CREAM 15 GM TUBE TP SCH (10:00)
[2019-05-22] MEDS: FLUTICASONE PROP 0.05% 16 GM NASAL SPRAY NS SCH (10:00)
--- NOTE | 2019-05-22 11:39 | PN ---
Progress Note, Physician Chief Complaint: Events noted Dyspnea improved History of Present Illness: Patient was seen and examined. Awake and alert. Chart was reviewed Denies chest pain or palpitations - Current Medication List Current Medications: Active Medications Albuterol/Ipratropium (Duoneb -) 1 amp NEB RQID [facility] Last Admin: 05/22/19 07:30 Dose: 1 amp Atorvastatin Calcium (Lipitor -) 20 mg PO HS [facility] Last Admin: 05/21/19 22:29 Dose: 20 mg Chlorhexidine Gluconate (Hibiclens For Decolonization -) 1 applic TP HS [facility] Last Admin: 05/21/19 22:29 Dose: 1 applic Clotrimazole (Lotrimin 1% Cream -) 1 applic TP BID [facility] Last Admin: 05/22/19 10:00 Dose: 1 applic Escitalopram Oxalate (Lexapro -) 10 mg PO DAILY [facility] Last Admin: 05/22/19 09:53 Dose: 10 mg Fluticasone Propionate (Flonase -) 1 spray NS DAILY [facility] Last Admin: 05/22/19 10:00 Dose: 1 spray Heparin Sodium (Porcine) (Heparin -) 5,000 unit SQ TID [facility] Last Admin: 05/22/19 05:34 Dose: 5,000 unit Metoprolol Succinate (Toprol Xl -) 25 mg PO DAILY [facility] Last Admin: 05/22/19 09:53 Dose: 25 mg Polyethylene Glycol (Miralax (For Daily Use) -) 17 gm PO DAILY [facility] Last Admin: 05/22/19 09:58 Dose: Not Given Ranitidine HCl (Zantac -) 150 mg PO BID [facility] Last Admin: 05/22/19 09:53 Dose: 150 mg Sodium Chloride ([place] Nasal [place] -) 2 spray NS BID PRN PRN Reason: NASAL CONGESTION Last Admin: 05/20/19 09:54 Dose: 2 sprays Valsartan (Diovan -) 40 mg PO DAILY [facility] Last Admin: 05/22/19 09:53 Dose: 40 mg - Objective Vital Signs: Vital Signs Temperature 97.1 F L 05/22/19 05:38 Pulse Rate 91 H 05/21/19 23:00 Respiratory Rate 20 05/22/19 09:00 Blood Pressure 103/68 05/22/19 08:00 O2 Sat by Pulse Oximetry (%) 91 L 05/22/19 09:00 Eyes: Yes: PERRL HENT: Yes: Atraumatic Neck: Yes: Supple Cardiovascular: Yes: Regular Rate and Rhythm, S1, S2 Respiratory: Yes: Diminished, Rhonchi Gastrointestinal: Yes: Normal Bowel Sounds, Soft, Abdomen, Obese. No: Tenderness Edema: Yes Edema: LLE: Trace, RLE: Trace Additional Findings/Remarks: Review of Systems Constitutional: denies: Chills or Fever Cardiovascular: denies: chest pain, palpitations (+) SOB Respiratory: (+) Cough, sputum, denies: hemoptysis Gastrointestinal: denies: Nausea, Vomiting, Diarrhea, Constipation or Abdominal Pain Genitourinary: denies: Dysuria Musculoskeletal: denies: Joint Pain Neurological: denies: Dizziness or Headache denies: seizure, syncope Labs: CBC, BMP 05/19/19 05:30 05/20/19 05:25 Problem List - Problems (1) FAITH (acute kidney injury) Code(s): N17.9 - ACUTE KIDNEY FAILURE, UNSPECIFIED (2) COPD (chronic obstructive pulmonary disease) Code(s): J44.9 - CHRONIC OBSTRUCTIVE PULMONARY DISEASE, UNSPECIFIED (3) GERD (gastroesophageal reflux disease) Code(s): K21.9 - GASTRO-ESOPHAGEAL REFLUX DISEASE WITHOUT ESOPHAGITIS (4) HTN (hypertension) Code(s): I10 - ESSENTIAL (PRIMARY) HYPERTENSION Qualifiers: Hypertension type: essential hypertension Qualified Code(s): I10 - Essential (primary) hypertension (5) Hyperkalemia Code(s): E87.5 - HYPERKALEMIA (6) Hyperlipidemia Code(s): E78.5 - HYPERLIPIDEMIA, UNSPECIFIED Qualifiers: Hyperlipidemia type: pure hypercholesterolemia Qualified Code(s): E78.00 - Pure hypercholesterolemia, unspecified; E78.0 - Pure hypercholesterolemia (7) RANJIT (obstructive sleep apnea) Code(s): G47.33 - OBSTRUCTIVE SLEEP APNEA (ADULT) (PEDIATRIC) (8) Pneumonia Code(s): J18.9 - PNEUMONIA, UNSPECIFIED ORGANISM (9) Acute on chronic respiratory failure with hypoxia and hypercapnia Code(s): J96.21 - ACUTE AND CHRONIC RESPIRATORY FAILURE WITH HYPOXIA; J96.22 - ACUTE AND CHRONIC RESPIRATORY FAILURE WITH HYPERCAPNIA (10) Acute respiratory failure with hypoxia and hypercarbia Code(s): J96.01 - ACUTE RESPIRATORY FAILURE WITH HYPOXIA; J96.02 - ACUTE RESPIRATORY FAILURE WITH HYPERCAPNIA (11) COPD exacerbation Code(s): J44.1 - CHRONIC OBSTRUCTIVE PULMONARY DISEASE W (ACUTE) EXACERBATION (12) Cor pulmonale Code(s): I27.81 - COR PULMONALE (CHRONIC) (13) Pulmonary HTN Code(s): I27.20 - PULMONARY HYPERTENSION, UNSPECIFIED (14) Morbid obesity Code(s): E66.01 - MORBID (SEVERE) OBESITY DUE TO EXCESS CALORIES (15) Diastolic dysfunction Code(s): I51.9 - HEART DISEASE, UNSPECIFIED Assessment/Plan 1. Acute hypoxemic/hypercapneic respiratory failure post extubation 2. Acute exacerbation of chronic obstructive pulmonary disease, possible pneumonia 3. Morbid obesity/hypoventilation syndrome 4. Severe pulmonary hypertension with cor pulmonale, clinical class II-III NYHA classification RV failure 5. Diastolic LV dysfunction with chronic class 0-I NYHA classification LV congestive heart failure, clinically compensated 6. Chronic kidney disease with Hyperkalemia, acute exacerbation- resolved 7. Hyponatremia resolved 8. Tobacco abuse PLAN: 1. As outlined in prior notes avoid Aldactone in view of recurrent Hyperkalemia 2. Continue Diovan with caution and close monitoring of renal function 3. Continue Toprol XL as tolerated 4. Continue Bronchodilators 5. Antibiotics coverage Patient was seen and examined for 40 min Velasquez Gaines MD
--- NOTE | 2019-05-22 12:00 | PN ---
Teaching Attending Note Name of Resident: Mariela Neff ATTENDING PHYSICIAN STATEMENT I saw and evaluated the patient. I reviewed the resident's note and discussed the case with the resident. I agree with the resident's findings and plan as documented. SUBJECTIVE: Pt seen and examined in the ICU. No specific complaints. Denies shortness of breath or chest pain. OBJECTIVE: Vital Signs Period Temp Pulse Resp BP Sys/[place] Pulse Ox Last 24 Hr 97.1 F-98.1 F 80-92 15-97 100-127/56-100 91-95 Intake & Output 05/19/19 05/20/19 05/21/19 05/22/19 23:59 23:59 23:59 23:59 Intake Total 1150 650 530 Output Total 9205 333 3415 450 Balance 100 -250 -570 -450 Weight 180.728 kg 182.117 kg 182.571 kg 180.6 kg Gen: NAD at rest Heart: RRR Lung: decreased breath sounds at the bases Abd: soft, nontender Ext: no edema CBC, BMP 05/19/19 05:30 05/20/19 05:25 Active Medications Albuterol/Ipratropium (Duoneb -) 1 amp NEB RQID [facility] Last Admin: 05/22/19 07:30 Dose: 1 amp Atorvastatin Calcium (Lipitor -) 20 mg PO HS [facility] Last Admin: 05/21/19 22:29 Dose: 20 mg Chlorhexidine Gluconate (Hibiclens For Decolonization -) 1 applic TP HS [facility] Last Admin: 05/21/19 22:29 Dose: 1 applic Clotrimazole (Lotrimin 1% Cream -) 1 applic TP BID [facility] Last Admin: 05/22/19 10:00 Dose: 1 applic Escitalopram Oxalate (Lexapro -) 10 mg PO DAILY [facility] Last Admin: 05/22/19 09:53 Dose: 10 mg Fluticasone Propionate (Flonase -) 1 spray NS DAILY [facility] Last Admin: 05/22/19 10:00 Dose: 1 spray Heparin Sodium (Porcine) (Heparin -) 5,000 unit SQ TID [facility] Last Admin: 05/22/19 05:34 Dose: 5,000 unit Metoprolol Succinate (Toprol Xl -) 25 mg PO DAILY [facility] Last Admin: 05/22/19 09:53 Dose: 25 mg Polyethylene Glycol (Miralax (For Daily Use) -) 17 gm PO DAILY [facility] Last Admin: 05/22/19 09:58 Dose: Not Given Ranitidine HCl (Zantac -) 150 mg PO BID [facility] Last Admin: 05/22/19 09:53 Dose: 150 mg Sodium Chloride ([place] Nasal [place] -) 2 spray NS BID PRN PRN Reason: NASAL CONGESTION Last Admin: 05/20/19 09:54 Dose: 2 sprays Valsartan (Diovan -) 40 mg PO DAILY [facility] Last Admin: 05/22/19 09:53 Dose: 40 mg ASSESSMENT AND PLAN: Acute on Chronic Hypoxic and Hypercapneic Respiratory Failure improving r/o Acute COPD Exacerbation Severe Restrictive Lung Disease UTI Morbid Obesity Pulmonary HTN LV Diastolic Dysfunction RANJIT/OHS Acute on Chronic Renal Failure - complete antibiotics per ID - monitor off steroids - inhaled bronchodilators - taper Fio2 to keep Spo2 >85% - BiPAP at night and PRN during day - monitor urine output, creatinine - monitor lytes - DVT/GI prophylaxis - can monitor on floor - d/c planning
[2019-05-22 13:05] VITALS: BMI 57.1
--- NOTE | 2019-05-22 15:17 | PN ---
Physical Exam: SUBJECTIVE: Patient seen and examined at bedside. pt has no acute complaints. pt states his symptoms have resolved. OBJECTIVE: Vital Signs Period Temp Pulse Resp BP Sys/Mel[place]za Pulse Ox Last 24 Hr 97.1 F-98 F 91-92 15-97 100-127/56-100 91-95 GENERAL: The patient is awake, alert, and fully oriented, in no acute distress. pt is on NC on 4 L saturating well. morbidly obese HEAD: Normal with no signs of trauma. EYES: PERRL, extraocular movements intact, sclera anicteric, conjunctiva clear. No ptosis. LUNGS: Breath sounds equal, clear to auscultation bilaterally, no wheezes, no crackles, no accessory muscle use. HEART: Regular rate and rhythm, S1, S2 without murmur, rub or gallop. ABDOMEN: Soft, nontender, nondistended, normoactive bowel sounds, no guarding, no rebound EXTREMITIES: warm, well-perfused, no edema. NEUROLOGICAL: Cranial nerves II through XII grossly intact. Normal speech, gait not observed. PSYCH: Normal mood, normal affect. SKIN: Warm, dry, normal turgor, no rashes or lesions noted Current Medications Albuterol/Ipratropium (Duoneb -) 1 amp NEB RQID [facility] Last Admin: 05/22/19 11:30 Dose: 1 amp Atorvastatin Calcium (Lipitor -) 20 mg PO HS [facility] Last Admin: 05/21/19 22:29 Dose: 20 mg Chlorhexidine Gluconate (Hibiclens For Decolonization -) 1 applic TP HS [facility] Last Admin: 05/21/19 22:29 Dose: 1 applic Clotrimazole (Lotrimin 1% Cream -) 1 applic TP BID [facility] Last Admin: 05/22/19 10:00 Dose: 1 applic Escitalopram Oxalate (Lexapro -) 10 mg PO DAILY [facility] Last Admin: 05/22/19 09:53 Dose: 10 mg Fluticasone Propionate (Flonase -) 1 spray NS DAILY [facility] Last Admin: 05/22/19 10:00 Dose: 1 spray Metoprolol Succinate (Toprol Xl -) 25 mg PO DAILY [facility] Last Admin: 05/22/19 09:53 Dose: 25 mg Polyethylene Glycol (Miralax (For Daily Use) -) 17 gm PO DAILY [facility] Last Admin: 05/22/19 09:58 Dose: Not Given Ranitidine HCl (Zantac -) 150 mg PO BID [facility] Last Admin: 05/22/19 09:53 Dose: 150 mg Sodium Chloride ([place] Nasal [place] -) 2 spray NS BID PRN PRN Reason: NASAL CONGESTION Last Admin: 05/20/19 09:54 Dose: 2 sprays Valsartan (Diovan -) 40 mg PO DAILY [facility] Last Admin: 05/22/19 09:53 Dose: 40 mg ASSESSMENT/PLAN: Satya Rosaroi is a 54 year old with PMH of COPD, OHS, RANJIT, HTN, HFpEF, GERD, MDD who is admitted to the ICU for acute on chronic hypercapneic hypoxic respiratory failure secondary to long-standing COPD, OHS, RANJIT. Acute on chronic hypercapneic hypoxic respiratory failure COPD OHS RANJIT HTN GERD NEUROLOGIC - alert and oriented - hold home gabapentin CARDIOLOGY - last echo 04/14 showing normal EF, normal left ventricle function and size - troponins negative - hold spironolactone with history of hyperkalemia - valsartan 40mg daily - metoprolol succinate 25mg daily - Lipitor 20mg daily RESPIRATORY - on NC 4L , saturating well - BiPAP on at night for RANJIT, counselled on importance on using CPAP at night at [facility] - PFTs performed in March showing patient with severe restrictive disease and severe diffusion deficit - steroids stopped - CXR showing widened mediastinum RENAL - FAITH resolved, Cr 0.7 - avoid overhydration due to hx of CHF - monitor urine output GASTROINTESTINAL - home ranitidine INFECTIOUS DISEASE - ertapenem 7 days completed. - blood cxs gram positive cocci in clusters, likely contamination, stop vancomycin - urine cxs Ecoli - Legionella and strep urine antigens negative - sputum cxs negative - continue to monitor for signs of infection, WBC, fevers - Dr. Nielson consulted, recs appreciated HEMATOLOGY - no acute issues PSYCHIATRIC - continue home Lexapro 10mg F/E/N - no standing fluids - continue to monitor electrolytes and replete as necessary - sodium controlled diet PROPHYLAXIS - on Lovenox 40mg subq bid CODE - full code DISPO: discharged to [facility] Visit type - Emergency Visit Emergency Visit: No - New Patient This patient is new to me today: Yes Date on this admission: 05/13/19 - Critical Care Critical Care patient: Yes Total Critical Care Time (in minutes): 36 Critical Care Statement: The care of this patient involved high complexity decision making to prevent further life threatening deterioration of the patient 's condition and/or to evaluate & treat vital organ system(s) failure or risk of failure. - Discharge Referral Referred to [facility] Med [facility].: No ATTENDING PHYSICIAN STATEMENT I saw and evaluated the patient. I reviewed the resident's note and discussed the case with the resident. I agree with the resident's findings and plan as documented. SUBJECTIVE: OBJECTIVE: ASSESSMENT AND PLAN:
[2019-05-22 15:18] VITALS: BP 122/66; TEMP 98.1
== END 2019-05-22 15:10 | DRG 208 ==
LOC: JER 10:39 → JERBED 15:24 → JICU 18:42
PROVIDERS: ATTEND Internal Medicine
PROC: 5A1945Z Respiratory Ventilation, 24-96 Consecutive Hours (ICD-10-PCS; principal; 2019-05-13)
PROC: 0BH17EZ Insertion of Endotracheal Airway into Trachea, Via Natural or Artificial Opening (ICD-10-PCS; 2019-05-13)
DX: J96.21 Acute and chronic respiratory failure with hypoxia (principal); J18.9 Pneumonia, unspecified organism; I50.32 Chronic diastolic (congestive) heart failure; Z68.43 Body mass index [BMI] 50.0-59.9, adult; N17.9 Acute kidney failure, unspecified; N39.0 Urinary tract infection, site not specified; J44.1 Chronic obstructive pulmonary disease with (acute) exacerbation; E87.1 Hypo-osmolality and hyponatremia; J96.22 Acute and chronic respiratory failure with hypercapnia; E66.01 Morbid (severe) obesity due to excess calories; I11.0 Hypertensive heart disease with heart failure; K21.9 Gastro-esophageal reflux disease without esophagitis; G47.33 Obstructive sleep apnea (adult) (pediatric); I27.20 Pulmonary hypertension, unspecified; E87.5 Hyperkalemia; I12.9 Hypertensive chronic kidney disease with stage 1 through stage 4 chronic kidney disease, or unspecified chronic kidney disease; N18.9 Chronic kidney disease, unspecified; E78.5 Hyperlipidemia, unspecified
CPT/HCPCS: 36415; 36600; 71045-TC-FY; 76775-TC; 80048; 80053; 80061; 81003; 82375; 82436; 82565; 82803; 82962; 83050; 83605; 83721; 83735; 83880; 83930; 83935; 84100; 84133; 84244; 84300; 84443; 84484; 85025; 85027; 85610; 85730; 87040; 87070; 87086; 87186; 87205; 87899; 93005; 93010; 94002; 94640; 94660; 97116-GP; 97162-GP; 99285-25; G0480; J1644; J7030